=== PATIENT | female | born 1940 | race Caucasian/White ===

== ENCOUNTER 2018-01-09 20:58 | Inpatient (IN) | payer OTHER ==
--- OUTSIDE RECORDS SUMMARY | 2018-01-09 21:01 | XMS REPORT | Clinical Summary ---
:1940 Author Organization [facility] Address [address] [place] [address] Care Team Providers Name Role Phone Yunior Montgomery MD Primary Care Provider Allergies Active Allergy Reactions Severity Noted Date Comments Perindopril Swelling High 01/25/2017 Throat swelled up. Current Medications Prescription Sig. Disp. Refills Start Date End Date Status PROAIR HFA 90 07/14/2016 Active mcg/actuation inhaler alendronate Take 70 mg by 07/30/2016 Active (FOSAMAX) 70 MG mouth once a tablet week. citalopram Take 40 mg by 08/01/2016 Active (CeleXA) 40 MG mouth daily. tablet levothyroxine Take 100 mcg by 07/25/2016 Active (SYNTHROID, mouth daily. LEVOTHROID) 100 MCG tablet predniSONE Take 100 mg by 07/30/2016 Active (DELTASONE) 10 MG mouth 2 (two) tablet times a day. traMADol (ULTRAM) Take 50 mg by 07/25/2016 Active 50 mg tablet mouth every 8 (eight) hours as needed. rosuvastatin Take 10 mg by Active (CRESTOR) 10 MG mouth daily. tablet ASPIRIN (ASPIR-LOW Take 81 mg by Active ORAL) mouth daily. roflumilast Take 500 mcg by Active (DALIRESP) 500 mcg mouth daily. tablet cholecalciferol, Take 2,000 Units Active vitamin D3, by mouth daily. (VITAMIN D3) 2,000 unit tablet TIOTROPIUM BROMIDE Inhale 5 mcg. Active (SPIRIVA RESPIMAT INHL) zolpidem (AMBIEN) Take 10 mg by Active 10 mg tablet mouth nightly as needed for sleep. clopidogrel Take 1 tablet (75 90 tablet 3 01/14/2017 Active (PLAVIX) 75 mg mg total) by tabletIndications: mouth daily. 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 albuterol 2.5 mg Inhale. Active /3 mL (0.083 %) solution for nebulization 3 mL, albuterol 5 mg/mL solution for nebulization 0.5 mL metoprolol Take 1 tablet (25 180 tablet 3 05/19/2017 05/19/20 Active tartrate mg total) by 18 (LOPRESSOR) 25 mg mouth 2 (two) tablet times a day. hydrALAZINE Take 1 tablet (25 90 tablet 3 09/16/2017 Active (APRESOLINE) 25 MG mg total) by tablet mouth daily as needed (sytolic bp >160). furosemide (LASIX) TAKE ONE TABLET 90 tablet 2 09/29/2017 Active 20 mg tablet BY MOUTH DAILY losartan (COZAAR) TAKE ONE TABLET 90 tablet 2 09/29/2017 Active 100 MG tablet BY MOUTH DAILY clopidogrel Take 75 mg by 06/23/2016 01/15/20 Discontinued (PLAVIX) 75 mg mouth daily. 17 tablet LYRICA 50 mg Take 50 mg by 07/23/2016 11/24/19 Discontinued capsule mouth daily. 18 anastrozole Take 1 mg by 05/19/20 Discontinued (ARIMIDEX) 1 mg mouth daily. 17 chemo tablet LACTOBACILLUS Take by mouth. 05/19/20 Discontinued ACIDOPHILUS 17 (PROBIOTIC ORAL) clonIDINE Take 0.1 mg by 05/19/20 Discontinued (CATAPRES) 0.1 MG mouth as needed 17 tablet for high blood pressure. linaclotide Take 145 mcg by 05/19/20 Discontinued (LINZESS) 145 mcg mouth daily 17 capsule before breakfast. losartan (COZAAR) Take 1 tablet 90 tablet 3 08/19/2016 09/29/20 Discontinued 100 MG tablet (100 mg total) by 17 mouth daily. furosemide (LASIX) Take 1 tablet (20 90 tablet 3 08/19/2016 09/29/20 Discontinued 20 MG tablet mg total) by 17 mouth daily. metoprolol Take 1 tablet 90 tablet 3 08/19/2016 05/19/20 Discontinued tartrate (100 mg total) by 17 (LOPRESSOR) 100 MG mouth daily. tablet irbesartan Take 1 tablet 90 tablet 3 08/19/2016 05/19/20 Discontinued (AVAPRO) 150 MG (150 mg total) by 17 tablet mouth daily. 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 artery 08/19/2016 Bilateral carotid artery disease 08/19/2016 Encounters Date Type Specialty Care Team Description 11/24/2017 Office Visit Cardiology Jewel Gomez MD CAD in viejas artery (Primary Dx); PAD (peripheral artery disease); Bilateral carotid artery disease 09/29/2017 Refill Cardiology Jewel Gomez MD Med Refill 09/16/2017 Refill Cardiology Alfreda Gibbs MA Med Refill 05/19/2017 Office Visit Cardiology Jewel Gomez MD Bilateral carotid artery disease (Primary Dx); Coronary artery disease involving viejas coronary artery of viejas heart without angina pectoris; PAD (peripheral artery disease); Essential hypertension 01/14/2017 Refill Cardiology Alfreda Gibbs MA Med Refill 01/08/2017 Orders Only Cardiology Jewel Gomez MD after 01/08/2017 Family History Medical History Relation Name Comments Heart disease Brother Heart disease Father Cancer Mother Heart disease Paternal Grandfather Cancer Sister Cancer Sister Relation Name Status Comments Brother Alive Father Mother Paternal Grandfather Sister Sister Social History Tobacco Use Types Packs/Day Years Used Date Current Every Day Smoker Cigarettes Smokeless Tobacco: Never Used Alcohol Use Drinks/Week oz/Week Comments No Sex Assigned at Date Recorded Not on file Last Filed Vital Signs Vital Sign Reading Time Taken Blood Pressure 179/77 11/24/2017 10:21 AM [employer] Pulse 73 11/24/2017 10:21 AM [employer] Temperature - - Respiratory Rate - - Oxygen Saturation - - Inhaled Oxygen Concentration - - Weight 61.2 kg (135 lb) 11/24/2017 10:21 AM [employer] Height 177.8 cm (5' 10") 11/24/2017 10:21 AM [employer] Body Mass Index 19.37 11/24/2017 10:21 AM [employer] Plan of Treatment Date Type Specialty Care Team Description 05/25/2018 Office Visit Cardiology Jewel Gomez MD [address] [facility] [address] [place] [address] [phone] Health Maintenance Due Date Last Done Comments ZOSTER VACCINE 2001 PNEUMOCOCCAL POLYSACCHARIDE VACCINE AGE 65 AND OVER 2006 PNEUMOCOCCAL-13 2006 INFLUENZA VACCINE 05/12/2017 Results ECG 12 lead (11/24/2017 10:12 AM) Component Value Ref Range Ventricular rate 69 Atrial rate 69 [place] interval 140 QRSD interval 90 QT interval 426 QTC interval 456 P axis 1 77 QRS axis 1 60 T wave axis 86 EKG impression Normal sinus rhythm-Possible Left atrial enlargement-Borderline ECG-In automated comparison with ECG of 19-AUG-2016 09:26,-No significant change was found- Specimen Performing Laboratory [facility] [address] [place] [address] Pv carotid duplex (05/19/2017 11:08 AM) Specimen Performing Laboratory [facility] [address] [place] [address] Narrative [facility] Carotid Artery Ultrasound Report Pat.Name:MICHELLE RUBI Pat.ID:[id number] .Date: 05/19/2017Refer.MD:JEWEL GOMEZ MD Exam Time: 11:51:00 AM Study Type:Carotid DOBAge:1940,77YSex: FEMALE Sonogrphr: Colette Patten, KRISTEN, RDCS, RVT Pat. Stat.:Outpatient Room:[facility] 9: I65.22 CPT - 4: 94362 Echo Event ID:[id number] Order ID:[id number] Reason for Study:Right carotid stent, left ica occlusion Race:C SUMMARY: Duplex scan of the BILATERAL cervical carotid system demonstrates patency of the right internal carotid artery stent without hemodynamically significant velocity increase. The left internal carotid artery is occluded. Color and Doppler flow is absent. The vertebral artery flow is antegrade bilaterally. FINDINGS: Duplex ultrasound was performed of the BILATERAL extracranial carotid arteries. On the right, a stent extends from the distal bulb through the internal carotid artery. The stent is patent with no evidence of intimal hyperplasia or stenosis. The left internal carotid artery is occluded. IMPRESSION: WIDELY PATENT RIGHT INTERNAL CAROTID ARTERY STENT WITH NO EVIDENCE OF RESTENOSIS. OCCLUDED LEFT INTERNAL CAROTID ARTERY Carotid Findings:RightLeft Verteb.Flw AntegradeAntegrade Subclavian TriphasicTriphasic MEASUREMENTS: DOPPLER Right SCA Prox SCA Prox PSV90.6 cm/sSCA Prox EDV 0 cm /s Right CCA Dist CCA Dist PSV39.3 cm/sCCA Dist EDV11.2 cm/s Right CCA Mid CCA Mid PSV 42.1 cm/sCCA Mid EDV 12.6 cm/s Right CCA Prox CCA Prox PSV47.8 cm/sCCA Prox EDV11.2 cm/s Right Bulb Bulb PSV53.4 cm/sBulb EDV 17.4 cm/s Right ECA Prox ECA Prox PSV74.4 cm/sECA Prox EDV23 cm /s Right ICA Dist ICA Dist PSV83.3 cm/Dylan Dist EDV29.1 cm/s Right ICA Mid ICA Mid PSV 97.8 cm/Dylan Mid EDV 32.6 cm/s Right ICA Prox ICA Prox PSV87.6 cm/Dylan Prox EDV29.6 cm/s Right Vertebral Vertebral PSV 85 cm/sVertebral EDV 18.8 cm/s Left SCA Prox SCA Prox PSV 121 cm/s Left CCA Dist CCA Dist PSV26.6 cm/sCCA Dist EDV 0 cm /s Left CCA Mid CCA Mid PSV 39 cm/sCCA Mid EDV 0 cm/s Left CCA Prox CCA Prox PSV32.5 cm/sCCA Prox EDV5.77 cm/s Left ECA ECA ONQ431 cm/sECA EDV 47.7 cm/s Left Vertebral Vertebral PSV 67.1 cm/sVertebral EDV 28.2 cm/s Right ICA/CCA Ratio ICA/CCA PSV 2.08 Left Bulb Bulb PSV 0 cm/s Left ICA Prox ICA Prox PSV 0 cm/s Left ICA Mid ICA Mid PSV0 cm/s Left ICA Dist ICA Dist PSV 0 cm/s Left ECA Prox ECA Prox PSV 227 cm/sECA Prox EDV15 cm /s Signed 05/21/2017 02:22 PM Jewel Gomez MD Procedure Note Interface, Radiology Results In - 05/21/2017 2:23 PM CDT [facility] Carotid Artery Ultrasound Report Pat.Name: MICHELLE RUBI Pat.ID: [id number] St.Date: 05/19/2017 Refer.MD: JEWEL GOMEZ MD Exam Time: 11:51:00 AM Study Type:Carotid Age: 5 1940,77Y Sex: FEMALE Sonogrphr: Colette Patten RDMS, RDCS, RVT Pat. Stat.:Outpatient Room: [place] ICD - 9: I65.22 CPT - 4: 33343 Echo Event ID:[id number] Order ID: [id number] Reason for Study:Right carotid stent, left ica occlusion Race: C SUMMARY: Duplex scan of the BILATERAL cervical carotid system demonstrates patency of the right internal carotid artery stent without hemodynamically significant velocity increase. The left internal carotid artery is occluded. Color and Doppler flow is absent. The vertebral artery flow is antegrade bilaterally. FINDINGS: Duplex ultrasound was performed of the BILATERAL extracranial carotid arteries. On the right, a stent extends from the distal bulb through the internal carotid artery. The stent is patent with no evidence of intimal hyperplasia or stenosis. The left internal carotid artery is occluded. IMPRESSION: WIDELY PATENT RIGHT INTERNAL CAROTID ARTERY STENT WITH NO EVIDENCE OF RESTENOSIS. OCCLUDED LEFT INTERNAL CAROTID ARTERY Carotid Findings: Right Left Verteb.Flw Antegrade Antegrade Subclavian Triphasic Triphasic MEASUREMENTS: DOPPLER Right SCA Prox SCA Prox PSV 90.6 cm/s SCA Prox EDV 0 cm/s Right CCA Dist CCA Dist PSV 39.3 cm/s CCA Dist EDV 11.2 cm/s Right CCA Mid CCA Mid PSV 42.1 cm/s CCA Mid EDV 12.6 cm/s Right CCA Prox CCA Prox PSV 47.8 cm/s CCA Prox EDV 11.2 cm/s Right Bulb Bulb PSV 53.4 cm/s Bulb EDV 17.4 cm/s Right ECA Prox ECA Prox PSV 74.4 cm/s ECA Prox EDV 23 cm/s Right ICA Dist ICA Dist PSV 83.3 cm/s ICA Dist EDV 29.1 cm/s Right ICA Mid ICA Mid PSV 97.8 cm/s ICA Mid EDV 32.6 cm/s Right ICA Prox ICA Prox PSV 87.6 cm/s ICA Prox EDV 29.6 cm/s Right Vertebral Vertebral PSV 85 cm/s Vertebral EDV 18.8 cm/s Left SCA Prox SCA Prox PSV 121 cm/s Left CCA Dist CCA Dist PSV 26.6 cm/s CCA Dist EDV 0 cm/s Left CCA Mid CCA Mid PSV 39 cm/s CCA Mid EDV 0 cm/s Left CCA Prox CCA Prox PSV 32.5 cm/s CCA Prox EDV 5.77 cm/s Left ECA ECA PSV 227 cm/s ECA EDV 47.7 cm/s Left Vertebral Vertebral PSV 67.1 cm/s Vertebral EDV 28.2 cm/s Right ICA/CCA Ratio ICA/CCA PSV 2.08 Left Bulb Bulb PSV 0 cm/s Left ICA Prox ICA Prox PSV 0 cm/s Left ICA Mid ICA Mid PSV 0 cm/s Left ICA Dist ICA Dist PSV 0 cm/s Left ECA Prox ECA Prox PSV 227 cm/s ECA Prox EDV 15 cm/s Signed 05/21/2017 02:22 PM Jewel Gomez MD General surgery (01/08/2017)after 01/08/2017 Insurance Payer Benefit Plan / Group Subscriber ID Type Phone Address [employer] MEDICARE AETNA MEDICARE HMO/PPO [facility] xxxxxxxx HMO y [phone] [id number]
--- OUTSIDE RECORDS SUMMARY | 2018-01-09 21:02 | XMS REPORT | Clinical Summary ---
:1940 Author Organization [facility] Address [address] [place] [address] Phone Care Team Providers Name Role Phone Unavailable Primary Care Provider Unavailable Allergies Active Allergy Reactions Severity Noted Date Comments Perindopril Swelling High 01/25/2017 Throat swelled up. Current Medications Prescription Sig. Disp. Refills Start Date End Date Status metoprolol (LOPRESSOR) Take 100 mg by Active 100 MG mouth daily. tabletIndications: hypertension losartan (COZAAR) 100 Take 100 mg by Active MG tabletIndications: mouth daily. hypertension levothyroxine Take 100 mcg by Active (SYNTHROID, mouth Every LEVOTHROID) 100 MCG morning on an tabletIndications: empty stomach. hypothyroidism rosuvastatin (CRESTOR) Take 10 mg by Active 10 MG mouth daily. tabletIndications: hyperlipidemia citalopram (CELEXA) 40 Take 40 mg by Active MG tabletIndications: mouth daily. Anxiety with Depression clopidogrel (PLAVIX) Take 75 mg by Active 75 mg tablet mouth daily. aspirin 81 MG EC Take 81 mg by Active tablet mouth daily. furosemide (LASIX) 20 Take 20 mg by Active MG tablet mouth daily. anastrozole (ARIMIDEX) Take 1 mg by Active 1 mg tablet mouth daily. alendronate (FOSAMAX) Take 70 mg by Active 70 MG mouth every 7 tabletIndications: days Take in Post-Menopausal the morning Osteoporosis with a full glass of water, on an empty stomach, and do not take anything else by mouth or lie down for the next 30 min. . pregabalin (LYRICA) 50 Take 50 mg by Active MG capsule mouth daily with dinner. traMADol (ULTRAM) 50 Take 50 mg by Active mg tabletIndications: mouth as needed Pain for Pain. zolpidem (AMBIEN) 10 Take 10 mg by Active mg tablet mouth every night as needed for Insomnia. cloNIDine HCl Take 0.1 mg by Active (CATAPRES) 0.1 MG mouth as tablet needed. tiotropium (SPIRIVA) Inhale 1 30 capsule 0 01/26/2017 01/26/2018 Active 18 mcg inhalation capsule (18 mcg capsule total) by mouth via inhaler daily. albuterol HFA Inhale 1 puff 1 Inhaler 0 01/26/2017 01/26/2018 Active (VENTOLIN HFA) 90 by mouth via mcg/actuation inhaler inhaler every 6 (six) hours as needed for Wheezing. Active Problems Problem Noted Date Syncope and collapse 01/25/2017 Encounters Date Type Specialty Care Team Description 01/25/2017 - Hospital Cardiology Lewis Currie Syncope and 01/26/2017 Encounter MD Prashant collapse;Essential OleganiEdith, hypertension;Postoper ative hypothyroidism;Hyperl ipidemia, unspecified hyperlipidemia type 01/25/2017 Orders Only General Internal Medicine after 01/08/2017 Family History Medical History Relation Name Comments Heart disease Father Hypertension Father Cancer Mother Relation Name Status Comments Father Mother Social History Tobacco Use Types Packs/Day Years Used Date Current Every Day Smoker 0.5 50 Tobacco Cessation: Ready to Quit: Yes Alcohol Use Drinks/Week oz/Week Comments Yes 2 Glasses of wine 1.2 Sex Assigned at Date Recorded Not on file Last Filed Vital Signs Vital Sign Reading Time Taken Blood Pressure 189/82 01/26/2017 10:00 AM CDT Pulse 80 01/26/2017 10:00 AM CDT Temperature 36.5 C (97.7 F) 01/26/2017 7:30 AM CDT Respiratory Rate 19 01/26/2017 7:30 AM CDT Oxygen Saturation 95% 01/26/2017 8:40 AM CDT Inhaled Oxygen Concentration - - Weight 58.7 kg (129 lb 8 oz) 01/25/2017 12:51 AM CDT Height 177.8 cm (5' 10") 01/25/2017 12:51 AM CDT Body Mass Index 18.58 01/25/2017 12:51 AM CDT Plan of Treatment Not on file Results RHYTHM STRIP - SCAN (02/06/2017 10:51 AM)Only the most recent of2 resultswithin the time period is included.EKG-SCANNED (01/28/2017 9:01 AM)XR chest 2 views ( 01/25/2017 2:46 PM) Specimen Performing Laboratory [place] [facility] Narrative FINAL REPORT INDICATION: smoker- hoarseness, hypoxia COMPARISON: None. TECHNIQUE: Chest radiograph, two views, PA and lateral. FINDINGS: There is hyperexpansion which may represent chronic obstructive pulmonary disease. No pneumonia or suspicious pulmonary nodule or mass is demonstrated. Cardiac silhouette is normal in size. Mild tortuosity of the thoracic aorta and calcification at the aortic arch is noted. There is no pleural effusion or pneumothorax. Osseous structures are unremarkable. IMPRESSION: Hyperexpansion, which may represent chronic obstructive pulmonary disease. No evidence of acute pulmonary abnormality. Signed: Calvin Carr MD Report Verified Date/Time:01/25/2017 15:21:54 Reading Location: [address] Transitional Reading Room Procedure Note Interface, External Ris In - 01/25/2017 3:24 PM CDT FINAL REPORT INDICATION: smoker- hoarseness, hypoxia COMPARISON: None. TECHNIQUE: Chest radiograph, two views, PA and lateral. FINDINGS: There is hyperexpansion which may represent chronic obstructive pulmonary disease. No pneumonia or suspicious pulmonary nodule or mass is demonstrated. Cardiac silhouette is normal in size. Mild tortuosity of the thoracic aorta and calcification at the aortic arch is noted. There is no pleural effusion or pneumothorax. Osseous structures are unremarkable. IMPRESSION: Hyperexpansion, which may represent chronic obstructive pulmonary disease. No evidence of acute pulmonary abnormality. Signed: Calvin Carr MD Report Verified Date/Time: 01/25/2017 15:21:54 Reading Location: [address] Transitional Reading Room PHERAL VASCULAR REPORT - SCAN (01/25/2017 1:50 PM)CT neck soft tissue with IV contrast (01/25/2017 11:47 AM) Specimen Performing Laboratory [place] [facility] Narrative FINAL REPORT CT neck with contrast. CLINICAL HISTORY: hoarsenss- h/o throat cancer TECHNIQUE: Axial CT images of the neck were obtained with contrast. This exam was performed according to our departmental dose optimization program which includes automated exposure control, adjustment of the mA and/or kV according to patient's size and/or use of iterative reconstructive technique. COMPARISON: None available. FINDINGS: There is slight medialization of the right aryepiglottic fold, and vocal cords, and slight enlargement of the right piriform sinus, which may reflect right-sided vocal cord paralysis. The right arytenoid cartilage is no identified. This finding could be postsurgical, but correlation with patient's history is needed. The salivary glands are unremarkable. No lymphadenopathy or mass lesion is identified in the neck. Thyroid gland is unremarkable. There is pulmonary emphysema, and a few scattered tiny lung nodules are present. Atherosclerotic disease. A stent is present in the right common and internal carotid artery. There is heavy atherosclerotic calcification at the left carotid bifurcation and the left ICA is occluded. Partially visualized orbital, and intracranial contents are unremarkable. The visualized paranasal sinuses and tympanomastoid cavities are clear. Advanced degenerative changes are present in the cervical spine, no suspicious bony lesion identified. IMPRESSION: No mass or lymphadenopathy identified in the neck. Findings suggest a right vocal cord paralysis. Absence of the right arytenoid cartilage may reflect postsurgical change, but correlation with patient's history is needed, and ENT consultation is suggested if clinically appropriate. Atherosclerotic disease. Occlusion of the left ICA. Stent in the right carotid artery.. Emphysema. A few tiny nonspecific nodules at the lung apices. Signed: Cherie Rivera MD Report Verified Date/Time:01/25/2017 17:21:00 Reading Location: [address] Neuro Reading Room Procedure Note Interface, External Ris In - 01/25/2017 5:23 PM CDT FINAL REPORT CT neck with contrast. CLINICAL HISTORY: hoarsenss- h/o throat cancer TECHNIQUE: Axial CT images of the neck were obtained with contrast. This exam was performed according to our departmental dose optimization program which includes automated exposure control, adjustment of the mA and/or kV according to patient's size and/or use of iterative reconstructive technique. COMPARISON: None available. FINDINGS: There is slight medialization of the right aryepiglottic fold, and vocal cords, and slight enlargement of the right piriform sinus, which may reflect right-sided vocal cord paralysis. The right arytenoid cartilage is no identified. This finding could be postsurgical, but correlation with patient's history is needed. The salivary glands are unremarkable. No lymphadenopathy or mass lesion is identified in the neck. Thyroid gland is unremarkable. There is pulmonary emphysema, and a few scattered tiny lung nodules are present. Atherosclerotic disease. A stent is present in the right common and internal carotid artery. There is heavy atherosclerotic calcification at the left carotid bifurcation and the left ICA is occluded. Partially visualized orbital, and intracranial contents are unremarkable. The visualized paranasal sinuses and tympanomastoid cavities are clear. Advanced degenerative changes are present in the cervical spine, no suspicious bony lesion identified. IMPRESSION: No mass or lymphadenopathy identified in the neck. Findings suggest a right vocal cord paralysis. Absence of the right arytenoid cartilage may reflect postsurgical change, but correlation with patient's history is needed, and ENT consultation is suggested if clinically appropriate. Atherosclerotic disease. Occlusion of the left ICA. Stent in the right carotid artery.. Emphysema. A few tiny nonspecific nodules at the lung apices. Signed: Cherie Rivera MD Report Verified Date/Time: 01/25/2017 17:21:00 Reading Location: [address] Neuro Reading Room brain without IV contrast (01/25/2017 11:00 AM) Specimen Performing Laboratory [place] Narrative FINAL REPORT MRI brain Comparison:No priors Reason for exam: episode of confusion, history of breast and throat cancer Discussion: Sagittal and coronal T1, axial FLAIR, T2, gradient echo T2 star, diffusion sequences and ADC map images of the brain are provided. Exam is motion degraded. There are no intracranial hematomas, mass effect, hydrocephalus, shift, or extra-axial collections. There is a mild degree of pontine and supratentorial white matter chronic microvascular ischemic change. 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 There are no areas of abnormal diffusion restriction. There is loss of flow-void in the left internal carotid artery, but flow is reconstituted in the left DALTON, and MCA. Normal flow voids in the large posterior dural sinuses. The pineal, sella, and craniocervical junction regions are within normal limits. The visualized orbital contents,skullbase and surrounding soft tissues are unremarkable. The visualized paranasal sinuses and mastoid air cells are unremarkable. Impressions: No acute intracranial process. Mild chronic microvascular ischemic changes. Left ICA occlusion. Signed: Cherie Rivera MD Report Verified Date/Time:01/25/2017 13:56:28 Reading Location: [address] Neuro Reading Room Procedure Note Interface, External Ris In - 01/25/2017 1:58 PM CDT FINAL REPORT MRI brain Comparison: No priors Reason for exam: episode of confusion, history of breast and throat cancer Discussion: Sagittal and coronal T1, axial FLAIR, T2, gradient echo T2 star, diffusion sequences and ADC map images of the brain are provided. Exam is motion degraded. There are no intracranial hematomas, mass effect, hydrocephalus, shift, or extra-axial collections. There is a mild degree of pontine and supratentorial white matter chronic microvascular ischemic change. 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 There are no areas of abnormal diffusion restriction. There is loss of flow-void in the left internal carotid artery, but flow is reconstituted in the left DALTON, and MCA. Normal flow voids in the large posterior dural sinuses. The pineal, sella, and craniocervical junction regions are within normal limits. The visualized orbital contents, skullbase and surrounding soft tissues are unremarkable. The visualized paranasal sinuses and mastoid air cells are unremarkable. Impressions: No acute intracranial process. Mild chronic microvascular ischemic changes. Left ICA occlusion. Signed: Cherie Rivera MD Report Verified Date/Time: 01/25/2017 13:56:28 Reading Location: [address] Neuro Reading Room Carotid doppler bilateral (01/25/2017 8:26 AM) Component Value Ref Range Ejection Fraction Specimen Performing Laboratory [facility]CHO [facility]ART[facility] MKCKESSON CPACS Narrative PV LAB - Carotid Duplex Study Demographics Patient JAE Hernandez Date of Study 01/25/2017 77 Visit [id number] Female of 1940 [facility] [place] [id number] Physician MD Rosey Instructional Writer Radha Soriano, Physician , [facility] Procedure Type of Study: Cerebral: Carotid, CAROTID DOPPLER, BILATERAL. Indications for Study:Syncope . Patient Status:Routine. Study Location:Vascular Lab. Technical Quality:Technically Difficult. - Results were reported to:Dr. Amaya @ 1670. Risk Factors History of Disease + +----+ + !Diagnosis !Date!Comments ! + +----+ + !History/Risk!!SMOKER, SYNCOPE, HTN, PAD, CAROTID ARTERY DISEASE,! !Factors:!!HLD, COPD, BREAST CANCER, H/O THROAT CANCER ! + +----+ + Impressions Right Impression 1. Post stent placement, the internal carotid artery is patent with velocities of: proximal stent- 151 cm/sec, distal stent- 148 cm/sec. 2. The external carotid artery is occluded. 3. There is non-occluding plaque in the common carotid artery. 4. The vertebral artery flow is antegrade and normal. 4. The vertebral artery flow is antegrade and normal. Left Impression 1. The internal carotid artery is occluded. 2. There is >50% stenosis in the external carotid artery with a velocity of 391 cm/sec. 3. There is non-occluding plaque in the common carotid artery. 4. The vertebral artery flow is antegrade and normal. 5. The subclavian artery is within normal limits where visualized. Conclusions Summary Carotid duplex scanning and color flow imaging were performed bilaterally. The arteries were adequately visualized. Post stent placement, the right internal carotid artery was patent with no significant stenosis. The left internal carotid artery was occluded. The right external carotid artery was occluded. The left external carotid artery had >50% stenosis. The vertebral artery flow was antegrade and normal bilaterally. The subclavian arteries were patent with normal flow bilaterally where visualized. Signature Velocities are measured in cm/s ; Diameters are measured in cm Carotid Right Measurements + +----+----+-----+ + + + !Location !PSV !EDV !Angle!%Stenosis 2D!%Stenosis Doppler! Tortuosity ! + +----+----+-----+ + + + !Prox CCA !51.9!20.4!54 !! ! ! + +----+----+-----+ + + + !Dist CCA !53!19.6!60 !! ! ! + +----+----+-----+ + + + !Prox ICA !151 !55!60 !! ! ! + +----+----+-----+ + + + !Dist ICA !148 !65.8!60 !! ! ! + +----+----+-----+ + + + !Prox ECA !0 !0 ! !! ! ! + +----+----+-----+ + + + !Vertebral!128 !41.2!60 !! ! ! + +----+----+-----+ + + + !Prox Subclavian!120 !0 !60 !! ! ! + +----+----+-----+ + + + - There is antegrade vertebral flow noted on the right side. - Additional Measurements:ICAPSV/CCAPSV 2.85.ICAEDV/CCAEDV 3.23. Carotid Left Measurements + +----+----+-----+ + + + !Location !PSV !EDV !Angle!%Stenosis 2D!%Stenosis Doppler! Tortuosity ! + +----+----+-----+ + + + !Prox CCA !49.8!11.1!60 !! ! ! + +----+----+-----+ + + + !Dist CCA !40.9!11.4!60 !! ! ! + +----+----+-----+ + + + !Prox ICA !0 !0 ! !! ! ! + +----+----+-----+ + + + !Dist ICA !0 !0 ! !! ! ! + +----+----+-----+ + + + !Prox ECA !391 !52.4!60 !! ! ! + +----+----+-----+ + + + !Vertebral!88!31.4!60 !! ! ! + +----+----+-----+ + + + !Prox Subclavian!154 !0 !60 !! ! ! + +----+----+-----+ + + + - There is antegrade vertebral flow noted on the left side. - Additional Measurements:ICAPSV/CCAPSV 0.ICAEDV/CCAEDV 0. Procedure Note Interface, External Ris In - 01/25/2017 1:10 PM CDT PV LAB - Carotid Duplex Study Demographics Patient Name JAE RUBI Date of Study 01/25/2017 Age 77 Visit Number [id number] Gender Female Date of 1940 Number Referring [facility] Room Number [id number] Physician MD Rosey Instructional Writer Radha Post Interpreting Kacie Soriano Physician , [facility] Procedure Type of Study: Cerebral: Carotid, CAROTID DOPPLER, BILATERAL. Indications for Study:Syncope . Patient Status:Routine. Study Location:Vascular Lab. Technical Quality:Technically Difficult. - Results were reported to:Dr. Amaya @ 0146. Risk Factors History of Disease + +----+ + !Diagnosis !Date!Comments ! + +----+ + !History/Risk ! !SMOKER, SYNCOPE, HTN, PAD, CAROTID ARTERY DISEASE, ! !Factors: ! !HLD, COPD, BREAST CANCER, H/O THROAT CANCER ! + +----+ + Impressions Right Impression 1. Post stent placement, the internal carotid artery is patent with velocities of: proximal stent- 151 cm/sec, distal stent- 148 cm/sec. 2. The external carotid artery is occluded. 3. There is non-occluding plaque in the common carotid artery. 4. The vertebral artery flow is antegrade and normal. 4. The vertebral artery flow is antegrade and normal. Left Impression 1. The internal carotid artery is occluded. 2. There is >50% stenosis in the external carotid artery with a velocity of 391 cm/sec. 3. There is non-occluding plaque in the common carotid artery. 4. The vertebral artery flow is antegrade and normal. 5. The subclavian artery is within normal limits where visualized. Conclusions Summary Carotid duplex scanning and color flow imaging were performed bilaterally. The arteries were adequately visualized. Post stent placement, the right internal carotid artery was patent with no significant stenosis. The left internal carotid artery was occluded. The right external carotid artery was occluded. The left external carotid artery had >50% stenosis. The vertebral artery flow was antegrade and normal bilaterally. The subclavian arteries were patent with normal flow bilaterally where visualized. Signature Velocities are measured in cm/s ; Diameters are measured in cm Carotid Right Measurements + +----+----+-----+ + + + !Location !PSV !EDV !Angle!%Stenosis 2D!%Stenosis Doppler!Tortuosity ! + +----+----+-----+ + + + !Prox CCA !51.9!20.4!54 ! ! ! ! + +----+----+-----+ + + + !Dist CCA !53 !19.6!60 ! ! ! ! + +----+----+-----+ + + + !Prox ICA !151 !55 !60 ! ! ! ! + +----+----+-----+ + + + !Dist ICA !148 !65.8!60 ! ! ! ! + +----+----+-----+ + + + !Prox ECA !0 !0 ! ! ! ! ! + +----+----+-----+ + + + !Vertebral !128 !41.2!60 ! ! ! ! + +----+----+-----+ + + + !Prox Subclavian!120 !0 !60 ! ! ! ! + +----+----+-----+ + + + - There is antegrade vertebral flow noted on the right side. - Additional Measurements:ICAPSV/CCAPSV 2.85.ICAEDV/CCAEDV 3.23. Carotid Left Measurements + +----+----+-----+ + + + !Location !PSV !EDV !Angle!%Stenosis 2D!%Stenosis Doppler!Tortuosity ! + +----+----+-----+ + + + !Prox CCA !49.8!11.1!60 ! ! ! ! + +----+----+-----+ + + + !Dist CCA !40.9!11.4!60 ! ! ! ! + +----+----+-----+ + + + !Prox ICA !0 !0 ! ! ! ! ! + +----+----+-----+ + + + !Dist ICA !0 !0 ! ! ! ! ! + +----+----+-----+ + + + !Prox ECA !391 !52.4!60 ! ! ! ! + +----+----+-----+ + + + !Vertebral !88 !31.4!60 ! ! ! ! + +----+----+-----+ + + + !Prox Subclavian!154 !0 !60 ! ! ! ! + +----+----+-----+ + + + - There is antegrade vertebral flow noted on the left side. - Additional Measurements:ICAPSV/CCAPSV 0.ICAEDV/CCAEDV 0. TSH/Free T4 If Indicated (01/25/2017 6:29 AM) Component Value Ref Range TSH 1.65 0.35 - 4.94 uIU/mL Specimen Performing Laboratory Blood - Arm, [address] [address] PT/aPTT (01/25/2017 6:29 AM) Component Value Ref Range Protime 12.8 11.7 - 14.7 seconds INR 1.0 <=5.9 PTT 26.8 22.5 - 36.0 seconds Specimen Performing Laboratory Blood - Arm, [address] [address] Narrative RECOMMENDED COUMADIN/WARFARIN INR THERAPY RANGES STANDARD DOSE: 2.0 - 3.0 Includes: PROPHYLAXIS for venous thrombosis, systemic embolization; TREATMENT for venous thrombosis and/or pulmonary embolus. HIGH RISK: Target INR is 2.5-3.5 for patients with mechanical heart valves. CBC with platelet count + automated diff (01/25/2017 6:29 AM) Component Value Ref Range WBC 5.1 4.0 - 10.0 K/L RBC 4.01 4.00 - 5.00 M/L Hemoglobin 12.8 12.0 - 15.0 GM/DL Hematocrit 39.7 36.0 - 45.0 % MCV 98.9 82.0 - 99.0 fL MCH 32.0 27.0 - 33.0 pg MCHC 32.4 32.0 - 36.0 GM/DL RDW 13.6 10.3 - 14.2 % Platelets 195 150 - 430 K/CU MM MPV 7.4 6.5 - 10.5 fL nRBC 0 0 - 0 /100 WBC % Neutros 46 % % Lymphs 41 % % Monos 11 % % Eos 1 % % Baso 1 % # Neutros 2.34 1.80 - 8.00 K/L # Lymphs 2.10 1.48 - 4.50 K/L # Monos 0.58 0.00 - 1.30 K/L # Eos 0.03 0.00 - 0.50 K/L # Baso 0.06 0.00 - 0.20 K/L Specimen Performing Laboratory Blood - Arm, Right [facility] [address] [address] Narrative 0.00 Prothrombin time/INR (01/25/2017 6:29 AM) Component Value Ref Range Protime 12.8 11.7 - 14.7 seconds INR 1.0 <=5.9 Specimen Performing Laboratory Blood - Arm, [address] [address] Narrative RECOMMENDED COUMADIN/WARFARIN INR THERAPY RANGES STANDARD DOSE: 2.0 - 3.0 Includes: PROPHYLAXIS for venous thrombosis, systemic embolization; TREATMENT for venous thrombosis and/or pulmonary embolus. HIGH RISK: Target INR is 2.5-3.5 for patients with mechanical heart valves. CBC with platelet count + automated diff (01/25/2017 6:29 AM) Specimen Performing Laboratory Blood Narrative The following orders were created for panel order CBC with platelet count + automated diff. Procedure Abnormality Status --------- ------ CBC with platelet count ...[[id number]]Final result Please view results for these tests on the individual orders. Magnesium (01/25/2017 6:29 AM) Component Value Ref Range Magnesium 2.0 1.6 - 2.6 mg/dL Specimen Performing Laboratory Blood - Arm, [address] [address] Hemoglobin A1c (01/25/2017 6:29 AM) Component Value Ref Range Hemoglobin A1C 5.6 4.3 - 6.1 % Specimen Performing Laboratory Blood - Arm, [address] [address] Vitamin B12 (01/25/2017 6:29 AM) Component Value Ref Range Vitamin B12 317 213 - 816 pg/mL Specimen Performing Laboratory Blood - Arm, [address] [address] Hepatic function panel (01/25/2017 6:29 AM) Component Value Ref Range Protein, Total 6.1 6.0 - 8.3 gm/dL Albumin 3.8 3.5 - 5.0 g/dL Total Bilirubin 0.3 0.2 - 1.2 mg/dL Bilirubin, Direct 0.1 0.1 - 0.5 mg/dL Alkaline Phosphatase 56 40 - 150 U/L AST 17 5 - 34 U/L ALT 8 6 - 55 U/L Specimen Performing Laboratory Blood - [facility], [address] [address] Lipid panel (01/25/2017 6:29 AM) Component Value Ref Range Triglycerides 93 mg/dL Cholesterol 146 mg/dL HDL 56 mg/dL LDL Calculated 71 mg/dL Specimen Performing Laboratory Blood - Arm, [address] [address] Narrative Triglyceride Reference Range: Low Risk <150 [id number] High Risk 200-499 Very High Risk>=500 Cholesterol Reference Range: Low Risk <200 [id number] High Risk>240 HDL Cholesterol Reference Range: Low Risk >=60 High Risk <40 LDL Cholesterol Reference Range: Optimal<100 Near [id number] [id number] Czdy499-512 Very High >=190 Basic metabolic panel (01/25/2017 6:29 AM) Component Value Ref Range Sodium 138 136 - 145 meq/L Potassium 4.8 3.5 - 5.1 meq/L Chloride 103 98 - 107 meq/L CO2 25 22 - 29 meq/L BUN 21 7 - 21 mg/dL Creatinine 0.86 0.57 - 1.25 mg/dL Glucose 68 (L) 70 - 105 mg/dL Calcium 8.4 8.4 - 10.2 mg/dL EGFR 64Comment: ESTIMATED GFR IS NOT ACCURATE mL/min/1.73 sq m CREATININE CLEARANCE IN PREDICTING GLOMERULAR FILTRATION RATE. ESTIMATED GFR IS NOT APPLICABLE FOR DIALYSIS PATIENTS. Specimen Performing Laboratory Blood - Arm, [address] [address] ECG 12 lead (01/25/2017 2:05 AM) Specimen Performing Laboratory [employer] [place] Narrative Ventricular Rate 59 BPM Atrial Rate 59 BPM P-R Interval 152 ms QRS Duration 108 ms Q-T Interval 504 ms QTC Calculation(Bazett) 498 ms P [place] 57 degrees R [place] 71 degrees T [place] 80 degrees Sinus bradycardia Incomplete right bundle branch block Anterior infarct , age undetermined Abnormal ECG When compared with ECG of 22-APR-2001 16:01, No significant change was found Confirmed by MD LUCERO, ADBI ([id number]) on 01/25/2017 5:22:00 PM Procedure Note Interface, External Ris In - 01/25/2017 5:22 PM CDT Ventricular Rate 59 BPM Atrial Rate 59 BPM P-R Interval 152 ms QRS Duration 108 ms Q-T Interval 504 ms QTC Calculation(Bazett) 498 ms P [place] 57 degrees R [place] 71 degrees T [place] 80 degrees Sinus bradycardia Incomplete right bundle branch block Anterior infarct , age undetermined Abnormal ECG When compared with ECG of 22-APR-2001 16:01, No significant change was found Confirmed by MD LUCERO, ADBI ([id number]) on 01/25/2017 5:22:00 PM after 01/08/2017
--- OUTSIDE RECORDS SUMMARY | 2018-01-09 21:02 | XMS REPORT ---
:1940 [facility] Organization [facility] Address [address] [place] [id number] Care Team Providers Name Role Phone JO-ANN WARREN Unavailable Unavailable Problems This patient has no known problems. Allergies, Adverse Reactions, Alerts This patient has no known allergies or adverse reactions. Medications This patient has no known medications. Results Test Description Test Time Test Comments Text Results Atomic Results Result Comments HEMOGLOBIN A1C 2017-01-25 09:13:00 Test Item Value Reference Range Comments HEMOGLOBIN A1C (BEAKER) (test hwyz=338) 5.6 % 4.3-6.1 VITAMIN [id number] 07:58:00 Test Item Value Reference Range Comments VITAMIN B12 (BEAKER) (test xahn=342) 317 pg/mL 213-816 TSH/FREE T4 IF [id number] 07:51:00 Test Item Value Reference Range Comments THYROID STIMULATING HORMONE (BEAKER) (test 1.65 uIU/mL 0.35-4.94 jmzl=593) [id number] 07:37:00 Test Item Value Reference Range Comments MAGNESIUM (BEAKER) (test euza=636) 2.0 mg/dL 1.6-2.6 BASIC METABOLIC [id number] 07:37:00 Test Item Value Reference Range Comments SODIUM (BEAKER) (test 138 meq/L 136-145 doxk=552) POTASSIUM (BEAKER) (test 4.8 meq/L 3.5-5.1 xizm=839) CHLORIDE (BEAKER) (test 103 meq/L 98-107 ldqc=857) CO2 (BEAKER) (test 25 meq/L 22-29 insx=207) BLOOD UREA NITROGEN 21 mg/dL 7-21 (BEAKER) (test hshe=338) CREATININE (BEAKER) (test 0.86 mg/dL 0.57-1.25 jwpi=690) GLUCOSE RANDOM (BEAKER) 68 mg/dL 70-105 (test xfkp=754) CALCIUM (BEAKER) (test 8.4 mg/dL 8.4-10.2 ulfi=175) EGFR (BEAKER) (test 64 mL/min/1.73 sq m ESTIMATED GFR IS NOT lhdz=1639) ACCURATE CREATININE CLEARANCE IN PREDICTING GLOMERULAR FILTRATION RATE. ESTIMATED GFR IS NOT APPLICABLE FOR DIALYSIS PATIENTS. LIPID [id number] 07:37:00 Test Item Value Reference Range Comments TRIGLYCERIDES (BEAKER) (test wjym=069) 93 mg/dL CHOLESTEROL (BEAKER) (test mrsi=217) 146 mg/dL HDL CHOLESTEROL (BEAKER) (test abdf=951) 56 mg/dL LDL CHOLESTEROL CALCULATED (BEAKER) (test 71 mg/dL xmem=295) Triglyceride Reference Range: Low Risk <150 Borderline 150- 199 High Risk 200-499 Very High Risk >=500Cholesterol Reference Range: Low Risk <200 Borderline 200-239 High Risk > 240HDL Cholesterol Reference Range: Low Risk >=60 High Risk <40LDL Cholesterol Reference Range: Optimal <100 Near Optimal 100-129 Borderline 130-159 High 160-189 Very High >=190HEPATIC FUNCTION [id number] 07:37:00 Test Item Value Reference Range Comments TOTAL PROTEIN (BEAKER) (test urgy=450) 6.1 gm/dL 6.0-8.3 ALBUMIN (BEAKER) (test gatd=9143) 3.8 g/dL 3.5-5.0 BILIRUBIN TOTAL (BEAKER) (test mhjk=198) 0.3 mg/dL 0.2-1.2 BILIRUBIN DIRECT (BEAKER) (test fpwd=305) 0.1 mg/dL 0.1-0.5 ALKALINE PHOSPHATASE (BEAKER) (test miby=554) 56 U/L 40-150 AST (SGOT) (BEAKER) (test yabw=465) 17 U/L 5-34 ALT (SGPT) (BEAKER) (test ickc=728) 8 U/L 6-55 CBC W/PLT COUNT & AUTO [id number] 07:33:00 Test Item Value Reference Range Comments WHITE BLOOD CELL COUNT (BEAKER) (test sdnc=308) 5.1 K/ L 4.0-10.0 RED BLOOD CELL COUNT (BEAKER) (test bljo=051) 4.01 M/ L 4.00-5.00 HEMOGLOBIN (BEAKER) (test dogi=601) 12.8 GM/DL 12.0-15.0 HEMATOCRIT (BEAKER) (test apjd=350) 39.7 % 36.0-45.0 MEAN CORPUSCULAR VOLUME (BEAKER) (test cfuw=342) 98.9 fL 82.0-99.0 MEAN CORPUSCULAR HEMOGLOBIN (BEAKER) (test 32.0 pg 27.0-33.0 zawd=994) MEAN CORPUSCULAR HEMOGLOBIN CONC (BEAKER) (test 32.4 GM/DL 32.0-36.0 xotu=539) RED CELL DISTRIBUTION WIDTH (BEAKER) (test 13.6 % 10.3-14.2 rujb=297) PLATELET COUNT (BEAKER) (test hqif=826) 195 K/CU MM 150-430 MEAN PLATELET VOLUME (BEAKER) (test nrvr=825) 7.4 fL 6.5-10.5 NUCLEATED RED BLOOD CELLS (BEAKER) (test 0 /100 WBC 0-0 ziaq=728) NEUTROPHILS RELATIVE PERCENT (BEAKER) (test 46 % yknw=516) LYMPHOCYTES RELATIVE PERCENT (BEAKER) (test 41 % qmva=140) MONOCYTES RELATIVE PERCENT (BEAKER) (test 11 % prtt=137) EOSINOPHILS RELATIVE PERCENT (BEAKER) (test 1 % lozq=962) BASOPHILS RELATIVE PERCENT (BEAKER) (test 1 % vtxw=236) NEUTROPHILS ABSOLUTE COUNT (BEAKER) (test 2.34 K/ L 1.80-8.00 dsbp=146) LYMPHOCYTES ABSOLUTE COUNT (BEAKER) (test 2.10 K/ L 1.48-4.50 lhds=022) MONOCYTES ABSOLUTE COUNT (BEAKER) (test 0.58 K/ L 0.00-1.30 kxix=348) EOSINOPHILS ABSOLUTE COUNT (BEAKER) (test 0.03 K/ L 0.00-0.50 gxwn=516) BASOPHILS ABSOLUTE COUNT (BEAKER) (test 0.06 K/ L 0.00-0.20 kvwc=573) 0.00PT/[id number] 07:04:00 Test Item Value Reference Range Comments PROTIME (BEAKER) (test uwtb=139) 12.8 seconds 11.7-14.7 INR (BEAKER) (test pvaz=354) 1.0 <=5.9 PARTIAL THROMBOPLASTIN TIME (BEAKER) (test 26.8 seconds 22.5-36.0 nwxe=181) RECOMMENDED COUMADIN/WARFARIN INR THERAPY RANGESSTANDARD DOSE: 2.0 - 3.0 Includes: PROPHYLAXIS forvenous thrombosis, systemic embolization; TREATMENT for venous thrombosis and/or pulmonary embolus.HIGH RISK: Target INR is 2.5-3.5 for patients with mechanical heart valves.PROTHROMBIN [id number] 07:03: 00 Test Item Value Reference Range Comments PROTIME (BEAKER) (test krdt=827) 12.8 seconds 11.7-14.7 INR (BEAKER) (test tjpt=836) 1.0 <=5.9 RECOMMENDED COUMADIN/WARFARIN INR THERAPY RANGESSTANDARD DOSE: 2.0 - 3.0 Includes: PROPHYLAXIS forvenous thrombosis, systemic embolization; TREATMENT for venous thrombosis and/or pulmonary embolus.HIGH RISK: Target INR is 2.5-3.5 for patients with mechanical heart valves.
[2018-01-09 21:32] LABS: Absolute Lymphocytes (CBC) 0.4 K/uL (0.7-4.9); Absolute Neutrophil 9.7 K/uL (1.8-8.0); Basophils % 0.2 % (0-1.3); Hematocrit 39.1 % (36.0-45.0); Lymphocytes % 3.5 % (15.3-44.8); MCH 29.8 pg (27.0-35.0); MCV 91.7 fL (80-100); MPV 8.3 fL (7.6-11.3); Monocytes % 8.6 % (3.3-12.3); RBC Red Blood Cell Count 4.26 M/uL (3.86-4.86)
[2018-01-09 21:38] LABS: Protime INR 0.93
[2018-01-09 21:39] LABS: Arterial Blood Carboxyhemoglob 5.9 % (0-1.5); Blood Gas Oxyhemoglobin 76.5 % (94-97); Blood O2 Saturation 82.1 % (92-98.5)
[2018-01-09 21:50] LABS: Potassium 4.6 mEq/L (3.6-5.0)
[2018-01-09 21:56] LABS: Bilirubin Direct 0.1 mg/dL (0-0.2); Bilirubin Total 0.8 mg/dL (0.3-1.2); Magnesium 1.8 mg/dL (1.8-2.5); Protein, Total 6.6 g/dL (6.0-8.3)
[2018-01-09] MEDS ORDERED: NA CHLORIDE 0.9% 1,000 ML ONE (21:57)
[2018-01-09] MEDS ORDERED: IPRATROPIUM BROM 0.5MG/2.5ML ONE (21:57)
[2018-01-09] MEDS ORDERED: ALBUTEROL 2.5 MG/3 ML NEB SOL ONE (21:57)
[2018-01-09 21:58] LABS: CKMB Creatine Kinase MB 3.3 ng/ml (0.3-4.0)
[2018-01-09 22:11] LABS: Blood Morphology Comment NOT SEEN (NOT SEEN); Platelet Estimate ADEQ
[2018-01-09] MEDS ORDERED: ACETAMINOPHEN 500 MG TAB PO PRN (22:51)
[2018-01-09] MEDS ORDERED: ONDANSETRON 4 MG/2 ML VIAL IV PRN (22:51)
--- NOTE | 2018-01-09 22:57 | EDPHYS ---
Physician Documentation [facility] Name: Michelle Benson Age: 77 yrs Sex: Female : 1940 Arrival Date: 01/09/2018 Time: 20:59 Bed 3 Private MD: ED Physician Luke Gill HPI: 01/09 22:52 This 77 yrs old Female presents to ER via Wheelchair with unknown complaint. pkl 22:52 The patient has shortness of breath at rest. Onset: The symptoms/episode began/occurred pkl 3 day(s) ago. Associated signs and symptoms: Pertinent positives: productive cough. Historical: - Allergies: 21:32 Codeine; ea 21:32 perindopril erbumine; ea - Home Meds: 21:44 alendronate 70 mg Oral tab 1 tab once wkly [Active]; levothyroxine 100 mcg tab 1 tab ea once daily [Active]; Crestor 10 mg Oral tab 1 tab once daily [Active]; citalopram 40 mg tab 1 tab once daily [Active]; metoprolol tartrate 25 mg Oral tab 1 tab once daily [Active]; losartan 100 mg oral tab 1 tab once daily [Active]; hydralazine 25 mg Oral tab [Active]; clopidogrel 75 mg oral tab 1 tab once daily [Active]; Lyrica 50 mg Oral 1 cap [Active]; furosemide 20 mg Oral tab 1 tab once daily [Active]; anastrozole 1 mg Oral tab 1 tab once daily [Active]; prednisone 10 mg Oral tab once daily [Active]; ipratropium-albuterol 0.5 mg-3 mg(2.5 mg base)/3 mL Inhl nebu 4 times per day [Active]; Brovana 15 mcg/2 mL inhalation nebu 2 mL 2 times per day [Active]; potassium chloride 20 mEq oral TbER 1 tab [Active]; alendronate 70 mg/75 mL oral soln 75 mL once wkly [Active]; - PMHx: 21:32 CAD; Sleep Apnea; Pneumonia; Hypothyroidism; High Cholesterol; 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 - Social history:: Smoking status: Patient uses tobacco products, smokes one pack cigarettes per day. ROS: 22:52 Eyes: Negative for injury, pain, redness, and discharge, ENT: Negative for injury, pkl pain, and discharge, Neck: Negative for injury, pain, and swelling, Cardiovascular: Negative for chest pain, palpitations, and edema. 22:52 Respiratory: Positive for cough, shortness of breath. 22:52 Abdomen/GI: Negative for abdominal pain, nausea, vomiting, and diarrhea. 22:52 Back: Negative for acute changes. 22:52 : Negative for urinary symptoms. 22:52 MS/extremity: Negative for acute changes. 22:52 Skin: Negative for rash. 22:52 Neuro: Negative for altered mental status. Exam: 22:52 Head/Face: Normocephalic, atraumatic. Eyes: Pupils equal round and reactive to light, pkl extra-ocular motions intact. Lids and lashes normal. Conjunctiva and sclera are non-icteric and not injected. Cornea within normal limits. Periorbital areas with no swelling, redness, or edema. ENT: Nares patent. No nasal discharge, no septal abnormalities noted. Tympanic membranes are normal and external auditory canals are clear. Oropharynx with no redness, swelling, or masses, exudates, or evidence of obstruction, uvula midline. Mucous membranes moist. Neck: Trachea midline, no thyromegaly or masses palpated, and no cervical lymphadenopathy. Supple, full range of motion without nuchal rigidity, or vertebral point tenderness. No Meningismus. Chest/axilla: Normal chest wall appearance and motion. Nontender with no deformity. No lesions are appreciated. Cardiovascular: Regular rate and rhythm with a normal S1 and S2. No gallops, murmurs, or rubs. Normal PMI, no JVD. No pulse deficits. 22:52 Respiratory: moderate respiratory distress is noted, Respirations: labored breathing, pkl that is moderate, Breath sounds: rales, that are moderate, are scattered. 22:52 Abdomen/GI: Bowel sounds: normal, Palpation: abdomen is soft and non-tender, in all quadrants. 22:52 Back: Exam negative for acute changes. 22:52 : Exam negative for acute changes. 22:52 Musculoskeletal/extremity: Exam is negative for acute changes. 22:52 Skin: Exam negative for rash. 22:52 Neuro: Orientation: is normal, Mentation: is normal, Cranial nerves: grossly normal, Motor: is normal. Vital Signs: 21:00 BP 165 / 62; Pulse 104; Resp 33 S; Temp 99.6(O); Pulse Ox 96% on Non-rebreather mask; ea Weight 61.23 kg; Height 5 ft. 1 in. (154.94 cm); Pain 0/10; 22:00 BP 112 / 64; Pulse 94; Resp 24; Pulse Ox 97% on Nebulizer Mask; aa1 23:34 BP 104 / 57; Pulse 87; Resp 29; Temp 97.5(A); Pulse Ox 96% on BiPAP; oe 01/10 00:32 BP 128 / 61; Pulse 90; Resp 28 S; Pulse Ox 96% on 50% BiPAP; Pain 0/10; ea 01/09 21:00 Body Mass Index 25.51 (61.23 kg, 154.94 cm) ea MDM: 01/09 21:14 Patient medically screened. pkl 22:55 Data reviewed: vital signs, nurses notes, lab test result(s), EKG, radiologic studies, pkl plain films. 01/09 21:21 Order name: Basic Metabolic Panel; Complete Time: 22:25 pkl 01/09 21:21 Order name: BNP; Complete Time: 22:25 pkl 01/09 21:21 Order name: CBC with Diff; Complete Time: 22:25 pkl 01/09 21:21 Order name: Ckmb; Complete Time: 22:25 pkl 01/09 21:21 Order name: CPK; Complete Time: 22:25 pkl 01/09 21:21 Order name: LFT's; Complete Time: 22:25 pkl 01/09 21:21 Order name: Magnesium; Complete Time: 22:25 pkl 01/09 21:21 Order name: PT-INR; Complete Time: 22:25 pkl 01/09 21:21 Order name: Ptt, Activated; Complete Time: 22:25 pkl 01/09 21:21 Order name: Troponin (emerg Dept Use Only); Complete Time: 22:25 pkl 01/09 21:21 Order name: ABG; Complete Time: 22:25 pkl 01/09 21:21 Order name: Blood Culture Adult (2) pkl 01/09 21:21 Order name: Lactate; Complete Time: 22:25 pkl 01/09 21:21 Order name: Procalcitonin; Complete Time: 22:25 pkl 01/09 21:21 Order name: XRAY Chest (1 view) pk 01/09 21:33 Order name: Manual Differential; Complete Time: 22:25 EDMS 01/09 22:55 Order name: CBC with Automated Diff EDMS 01/09 22:55 Order name: CBC with Automated Diff EDMS 01/09 22:55 Order name: Comprehensive Metabolic Panel EDMS 01/09 22:55 Order name: Comprehensive Metabolic Panel EDMS 01/09 22:55 Order name: Lipid Profile EDMS 01/09 22:55 Order name: Lipid Profile EDMS 01/09 22:55 Order name: Magnesium EDMS 01/09 22:55 Order name: Magnesium EDMS 01/09 22:55 Order name: Phosphorus EDMS 01/09 22:55 Order name: Phosphorus EDMS 01/09 22:55 Order name: Troponin I EDMS 01/09 22:55 Order name: Troponin I EDAK 01/09 22:55 Order name: Troponin I EDAK 01/09 21:21 Order name: EKG; Complete Time: 21:22 pk 01/09 21:21 Order name: Cardiac monitoring; Complete Time: 21:23 pk 01/09 21:21 Order name: EKG - Nurse/Tech; Complete Time: 21:23 pk 01/09 21:21 Order name: IV Saline Lock; Complete Time: 21:32 pkl 01/09 21:21 Order name: Labs collected and sent; Complete Time: 21:32 pk 01/09 21:21 Order name: O2 Per Protocol; Complete Time: 21:32 pk 01/09 21:21 Order name: O2 Sat Monitoring; Complete Time: 21:23 pk 01/09 22:55 Order name: Heart Healthy EDMS Administered Medications: 21:42 Drug: Albuterol - atroVENT (3:1) (2.5 mg - 0.5 mg) 3 ml Route: Nebulizer; aa1 22:15 Follow up: Response: No adverse reaction ea 21:42 Drug: NS 0.9% 1000 ml Route: IV; Rate: 100 ml/hr; Site: left forearm; aa1 01/10 00:05 Follow up: Response: No adverse reaction; IV Status: Infusion continued upon admission ea Disposition: 01/09/18 22:57 Hospitalization ordered by Nick Lake for Inpatient Admission. Preliminary diagnosis is Acute dyspnea. Pneumonia. Hypoxia. - Bed requested for Telemetry/MedSurg (Inpatient). - Status is Inpatient Admission. ea - Condition is Stable. - Problem is new. - Symptoms are unchanged. UTI on Admission? No Signatures: Dispatcher [employer] Ann Colin RN RN aa1 Luke Gill MD MD pkl Garcia, Cindy, RN RN cg Antunez, Elena, RN RN ea
--- NOTE | 2018-01-09 22:57 | ER ---
Nurse's Notes [facility] Name: Michelle Benson Age: 77 yrs Sex: Female : 1940 Arrival Date: 01/09/2018 Time: 20:59 Bed 3 Private MD: Diagnosis: Acute dyspnea. Pneumonia. Hypoxia Presentation: 01/09 21:05 Presenting complaint: Upon arrival in room for triage pt on non re breather with O2 ea Sats at 90% . Pt groggy unable to answer questions. Room air sats reported to be 82%. Son at bedside reports she went to see her and noted she was having a hard time breathing and had not ate all day. Transition of care: patient was not received from another setting of care. Onset of symptoms was January 09, 2018. Care prior to arrival: None. 21:05 Method Of Arrival: Wheelchair ea 21:05 Acuity: RHIANNON 2 ea Triage Assessment: 21:05 General: Appears distressed, uncomfortable, Behavior is drowsy. Pain: Denies pain. ea EENT: No signs and/or symptoms were reported regarding the EENT system. EENT: Parent/caregiver reports the patient having son reports patient is hard of hearing. . Neuro: Level of Consciousness is obeys commands, lethargic, Oriented to person. Cardiovascular: Heart tones S1 S2 present Patient's skin is warm and dry. Respiratory: Airway is patent Respiratory effort is labored, Respiratory pattern is tachypnea Breath sounds are coarse bilaterally. Breath sounds with crackles bilaterally. GI: No signs and/or symptoms were reported involving the gastrointestinal system. Abdomen is non-distended. : No signs and/or symptoms were reported regarding the genitourinary system. Derm: Skin is dry, Skin is pale, Skin temperature is warm. Historical: - Allergies: 21:32 Codeine; ea 21:32 perindopril erbumine; ea - Home Meds: 21:44 alendronate 70 mg Oral tab 1 tab once wkly [Active]; levothyroxine 100 mcg tab 1 tab ea once daily [Active]; Crestor 10 mg Oral tab 1 tab once daily [Active]; citalopram 40 mg tab 1 tab once daily [Active]; metoprolol tartrate 25 mg Oral tab 1 tab once daily [Active]; losartan 100 mg oral tab 1 tab once daily [Active]; hydralazine 25 mg Oral tab [Active]; clopidogrel 75 mg oral tab 1 tab once daily [Active]; Lyrica 50 mg Oral 1 cap [Active]; furosemide 20 mg Oral tab 1 tab once daily [Active]; anastrozole 1 mg Oral tab 1 tab once daily [Active]; prednisone 10 mg Oral tab once daily [Active]; ipratropium-albuterol 0.5 mg-3 mg(2.5 mg base)/3 mL Inhl nebu 4 times per day [Active]; Brovana 15 mcg/2 mL inhalation nebu 2 mL 2 times per day [Active]; potassium chloride 20 mEq oral TbER 1 tab [Active]; alendronate 70 mg/75 mL oral soln 75 mL once wkly [Active]; - PMHx: 21:32 CAD; Sleep Apnea; Pneumonia; Hypothyroidism; High Cholesterol; 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 - Social history:: Smoking status: Patient uses tobacco products, smokes one pack cigarettes per day. Screenin:57 Abuse screen: Denies threats or abuse. Nutritional screening: No deficits noted. ea Tuberculosis screening: No symptoms or risk factors identified. Fall Risk None identified. Assessment: 21:32 Reassessment: Patient and/or family updated on plan of care and expected duration. Pain ea level reassessed. RT at bedside, pt placed on bi pap \T\ 50%, O2, tolerating well. 22:56 Reassessment: O2 sats 88% on BiPAP 35% O2 RT at bedside increased settings to 1216, 14 ea and 60% O2 sats at 95%, settings titrated FiO2 at 50% O2 sats 91%. 23:35 Reassessment: Patient and/or family updated on plan of care and expected duration. Pain ea level reassessed. Son at bedside, pt resting with eyes closed, chest expansions even and symmetrical, respirations even and unlabored, pt remains on BiPAP O2 \T\ 50% O2 sats 92%. 23:57 Reassessment: Report called to Jonna ROBERTSON on fourth floor. ea 01/10 00:15 Reassessment: Patient and/or family updated on plan of care and expected duration. Pain ea level reassessed. Respirations even and unlabored, chest expansions even and symmetrical, RT at bedside, pt transferred to fourth floor tolerated well. Vital Signs: 01/09 21:00 BP 165 / 62; Pulse 104; Resp 33 S; Temp 99.6(O); Pulse Ox 96% on Non-rebreather mask; ea Weight 61.23 kg; Height 5 ft. 1 in. (154.94 cm); Pain 0/10; 22:00 BP 112 / 64; Pulse 94; Resp 24; Pulse Ox 97% on Nebulizer Mask; aa1 23:34 BP 104 / 57; Pulse 87; Resp 29; Temp 97.5(A); Pulse Ox 96% on BiPAP; oe 01/10 00:32 BP 128 / 61; Pulse 90; Resp 28 S; Pulse Ox 96% on 50% BiPAP; Pain 0/10; ea 01/09 21:00 Body Mass Index 25.51 (61.23 kg, 154.94 cm) ea ED Course: 01/09 20:59 Patient arrived in ED. rg2 21:05 EKG done, by ED staff, reviewed by Luke Gill MD. aa1 21:05 Patient has correct armband on for positive identification. Bed in low position. Call ea light in reach. Side rails up X2. Pt's son at bedside. 21:05 Arm band placed on left wrist. Patient placed in an exam room, on a stretcher, on ea oxygen, on equipment monitor phototypesetting, on pulse oximetry. 21:10 Missed attempt(s): 20 gauge in left antecubital area. Bleeding controlled, band aid ea applied, catheter tip intact. 21:12 Initial lab(s) drawn, by me, sent to lab. First set of blood cultures drawn by me. aa1 Inserted saline lock: 20 gauge in left forearm, using aseptic technique. 21:14 Luke Gill MD is Attending Physician. pkl 21:28 Ellie Arana, AILYN is Primary Nurse. ea 21:34 Second set of blood cultures drawn by me. aa1 21:50 Triage completed. ea 21:51 X-ray completed. Portable x-ray completed in exam room. Patient tolerated procedure la2 well. 21:54 XRAY Chest (1 view) In Process Unspecified. EDMS 22:56 Nick Lake MD is Hospitalizing Provider. pkl 23:33 No provider procedures requiring assistance completed. Patient admitted, IV remains in ea place. Administered Medications: 21:42 Drug: Albuterol - atroVENT (3:1) (2.5 mg - 0.5 mg) 3 ml Route: Nebulizer; aa1 22:15 Follow up: Response: No adverse reaction ea 21:42 Drug: NS 0.9% 1000 ml Route: IV; Rate: 100 ml/hr; Site: left forearm; aa1 01/10 00:05 Follow up: Response: No adverse reaction; IV Status: Infusion continued upon admission ea Outcome: 01/09 22:57 Decision to Hospitalize by Provider. pkl 23:00 Instructed on the need for admit, Patient's son instructed on the need for admit ea Demonstrated understanding of instructions. 01/10 00:28 Admitted to Med/surg accompanied by tech, via stretcher, room 415, with oxygen, on ea monitor, with chart, Report called to Jonna ROBERTSON Condition: stable 00:33 Patient left the ED. ea Signatures: Dispatcher [employer] Shruthi Deal rg2 Ann Prakash, RN RN aa1 Luke Gill MD MD pkTalon Gill Elena, RN RN samia Santos Candiceluciano banegas
[2018-01-09] MEDS ORDERED: NA CHLORIDE 0.9% 1,000 ML IV SCH (23:00)
[2018-01-10] MEDS: ALBUTEROL 2.5 MG/3 ML NEB SOL NEB SCH ×4 (01:41→20:00)
[2018-01-10] MEDS: IPRATROPIUM BROM 0.5MG/2.5ML NEB SCH ×4 (01:41→20:00)
[2018-01-10 05:50] LABS: Absolute Lymphocytes (CBC) 0.4 K/uL (0.7-4.9); Absolute Monocytes 0.8 K/uL (0.1-1.3); Absolute Neutrophil 7.4 K/uL (1.8-8.0); Basophils % 0.1 % (0-1.3); Hematocrit 34.3 % (36.0-45.0); Lymphocytes % 5.1 % (15.3-44.8); MCH 29.5 pg (27.0-35.0); MCV 92.9 fL (80-100); MPV 8.4 fL (7.6-11.3); Monocytes % 9.6 % (3.3-12.3); RBC Red Blood Cell Count 3.69 M/uL (3.86-4.86)
[2018-01-10] MEDS ORDERED: NA CHLORIDE 0.9% 1,000 ML IV SCH (06:00)
[2018-01-10 06:16] LABS: Albumin 2.9 g/dL (3.2-5.5); Bilirubin Total 0.7 mg/dL (0.3-1.2); Magnesium 1.8 mg/dL (1.8-2.5); Phosphorus 3.9 mg/dL (2.5-4.3); Potassium 4.8 mEq/L (3.6-5.0); Protein, Total 4.8 g/dL (6.0-8.3)
[2018-01-10] MEDS ORDERED: METHYLPREDNISOLONE 125 MG INJ IV SCH (07:07)
--- NOTE | 2018-01-10 07:14 | P.HP ---
Certification for Inpatient Patient admitted to: Inpatient With expected LOS: >2 Midnights Practitioner: I am a practitioner with admitting privileges, knowledge of patient current condition, hospital course, and medical plan of care. Services: Services provided to patient in accordance with Admission requirements found in Title 42 Section 412.3 of the Code of Federal Regulations Patient History Date of Service: 01/09/18 Reason for admission: COPD exacerbation History of Present Illness: Patient is a 77-year-old female who came into the hospital with difficulty breathing. Patient was seen in the emergency room and her O2 sats was 54%. Patient was started on nebs and O2. Her oxygenation was not improving so patient was placed on BiPAP. Patient was given nebs, steroids, and antibiotics. Patient BNP was elevated to those concern for CHF however the last echocardiogram did not reveal any systolic dysfunction. Patient may have diastolic dysfunction and will need to repeat an echocardiogram. Will Hep-Lock IV and monitor volume status closely. Patient does appear to be dehydrated for labs so will monitor this closely. We may have to diurese patient as well. Otherwise, no new complaints. Patient's son is at bedside with her. We will continue with current plan of care at this time. Allergies codeine Allergy (Verified 01/10/18 02:21) Unknown perindopril erbumine [From Aceon] Allergy (Verified 01/10/18 02:21) UNKNOWN Home Medications: Citalopram [Celexa*] 40 mg PO DAILY 02/26/14 Furosemide [Lasix*] 20 mg PO DAILY 02/26/14 Levothyroxine [Synthroid*] 100 mcg PO [id number] 02/26/14 Metoprolol Succinate [Toprol Xl*] 25 mg PO [id number] 02/26/14 Pregabalin [Lyrica] 50 mg PO BEDTIME 02/26/14 Tiotropium [place] [Spiriva] 2 puff IH DAILY 02/26/14 Zolpidem Tartrate [Ambien*] 10 mg PO BEDTIME PRN PRN #0 tablet 03/02/14 Alendronate Sodium 70 mg PO EVERY 7TH DAY 01/12/17 Clopidogrel Bisulfate [Plavix*] 75 mg PO DAILY 01/12/17 Rosuvastatin Calcium [Crestor] 10 mg PO DAILY 01/12/17 Tramadol HCl [Ultram] 50 mg PO Q6HP PRN 01/12/17 Losartan Potassium 100 mg PO DAILY 02/16/17 Roflumilast [Daliresp*] 500 mcg PO DAILY 02/16/17 Vit D3/Folic Acid/B2/B6/B12 [Folgard Tablet] 1 each PO DAILY 02/16/17 Hydralazine [Apresoline*] 25 mg PO TID PRN #60 tab 03/15/17 Acetaminophen [Pain Relief 8Hr] 1 tab PO DAILY 01/10/18 Albuterol Sulfate [Ventolin Hfa] 2 puff IH Q4H 01/10/18 Arformoterol Tartrate [Brovana] 2 ml IH DAILY 01/10/18 Benzonatate [Tessalon Perle*] 1 cap PO DAILY 01/10/18 Potassium Chloride 1 tab PO DAILY 01/10/18 Prednisone [Prednisone*] 10 mg PO DAILY 01/10/18 Tiotropium [place] [Spiriva Respimat] 2 puff IH DAILY 01/10/18 - Past Medical/Surgical History Diabetic: No -: History of breast cancer -: History of throat cancer -: Hypertension -: Hypothyroidism -: COPD, steroid and oxygen-dependent -: Peripheral vascular disease -: Carotid arterial disease -: CHF -: Hyperlipidemia -: Obstructive sleep apnea -: Neuropathy -: Tobacco abuse( quit 1 month ago) -: Hysterectomy -: Hemorrhoidectomy -: Radiation to the vocal cords -: Stents to the lower extremity and carotid -: Bilateral eye surgery -: Left-sided mastectomy -: chemotherapy Psychosocial/ Personal History: Patient is . She has children. She does not work. - Family History Father Medical History: Heart disease Mother Medical History: Cancer Sister Medical History: Cancer Notes: Brother Medical History: Heart disease Notes: - Social History Smoking Status: Current every day smoker Alcohol use: Yes CD- Drugs: No Caffeine use: Yes Place of Residence: Home Review of Systems 10-point ROS is otherwise unremarkable Physical Examination - Vital Signs Temperature: 98 F Blood Pressure: 127/71 Pulse: 90 Respirations: 18 Pulse Ox (%): 100 - Physical Exam General: Alert, In no apparent distress, Oriented x2 HEENT: Atraumatic, PERRLA, Mucous membr. moist/pink, EOMI, Sclerae nonicteric Neck: Supple, 2+ carotid pulse no bruit, No LAD, Without JVD or thyroid abnormality Respiratory: Diminished, Expiratory wheezes Cardiovascular: Regular rate/rhythm, Normal S1 S2, Systolic murmur Gastrointestinal: Normal bowel sounds, Soft and benign, Non-distended, No tenderness Musculoskeletal: No clubbing, No swelling, No tenderness Integumentary: No rashes Neurological: Normal gait, Normal speech, Normal strength at 5/5 x4 extr, Normal tone, Sensation intact, Cranial nerves 3-12 intact, Normal affect Lymphatics: No axilla or inguinal lymphadenopathy - Studies Laboratory Data (last 24 hrs) 01/09/18 21:18: PT 11.0, INR 0.93, APTT 24.6 01/09/18 21:18: WBC 11.1 H, Hgb 12.7, Hct 39.1, Plt Count 317 01/09/18 21:18: B-Natriuretic Peptide 904 H 01/09/18 21:18: Sodium 135, Potassium 4.6, BUN 28 H, Creatinine 1.23 H, Glucose 101, Magnesium 1.8, Total Bilirubin 0.8, AST 24, ALT 13, Alkaline Phosphatase 51 Assessment & Plan - Problems (Diagnosis) (1) History of CHF (congestive heart failure) Current Visit: Yes Status: Acute (2) Hypoxemia Current Visit: Yes Status: Acute (3) Hypertensive disorder, systemic arterial Current Visit: No Status: Active (4) COPD exacerbation Onset Date: 02/17/17 Current Visit: No Status: Acute (5) Coronary arteriosclerosis Current Visit: No Status: Acute (6) Depressive disorder Current Visit: No Status: Acute (7) Carotid arterial disease Current Visit: No Status: Chronic Qualifiers: (8) Hyperlipidemia Current Visit: No Status: Chronic Qualifiers: (9) Hypertension Current Visit: No Status: Chronic Qualifiers: (10) Hypothyroidism Current Visit: No Status: Chronic Qualifiers: (11) Obstructive sleep apnea Current Visit: No Status: Chronic - Plan 1. Continue with nebs, steroids, and IV antibiotics 2. Awaiting sputum culture 3. Repeat chest x-ray 4. Will proceed with CT scan of the chest if patient's symptoms are not improving 5. Pulmonary consultation 6. Continue with nebs as needed 7. O2 per protocol 8. Hep-Lock the IV and echocardiogram 9. Repeat labs including CBC and renal function in a.m. 10. GI and DVT prophylaxis Discharge Plan: Home Plan to discharge in: Greater than 2 days - Advance Directives Does patient have a Living Will: Yes Does patient have a Durable POA for Healthcare: Yes - Code Status/Comfort Care Code Status Assessed: Yes Code Status: Full Code Critical Care: No Time Spent Managing PTS Care (In Minutes): 50
[2018-01-10] MEDS: METHYLPREDNISOLONE 40 MG INJ IV SCH ×2 (08:57→17:43)
[2018-01-10] MEDS: Levofloxacin 750mg IV 750 MG/150 ML BAG IV SCH (08:57)
[2018-01-10] MEDS: ENOXAPARIN 40 MG/0.4 ML SQ SCH (08:57)
--- NOTE | 2018-01-10 08:57 | RAD REPORT ---
EXAM DESCRIPTION: [facility] Single View01/09/2018 9:54 pm CLINICAL HISTORY: Shortness of breath COMPARISON: none FINDINGS: Moderate patchy opacities are present within the right lung base. The left lung appears clear of acute infiltrate. The heart is normal size IMPRESSION: Moderate right basilar pneumonia
[2018-01-10] MEDS ORDERED: CEFTRIAXONE 1 GM/NS 50 ML 1 GM/50 ML BAG IV SCH (09:00)
[2018-01-10] MEDS ORDERED: AZITHROMYCIN IV 500 MG in NA CHLORIDE 0.9% 250 ML IVPB SCH (09:00)
[2018-01-10] MEDS ORDERED: MAGNESIUM SULFATE 1 gm IVPB 1 GM/100 ML BAG IV ONE (09:00)
[2018-01-10] MEDS ORDERED: CEFTRIAXONE/SWI 1gm 1 GM/10 ML SYR IV SCH (09:00)
--- NOTE | 2018-01-10 10:47 | P.CNS ---
Date of Consult: 01/10/18 Reason for Consult: COPD pneumonia Chief Complaint: COPD exacerbation History of Present Illness: Patient is 77 years of age well known to me with a history of terminal severe COPD still continues to smoke according to the son has been sick for the past 4 days worsening shortness of breath patient is minimally responsive was admitted with mild hypercapnia coughing up some productive phlegm no fever or chills was admitted with a diagnosis of right lower lobe pneumonia and COPD Allergies codeine Allergy (Verified 01/10/18 02:21) Unknown perindopril erbumine [From Aceon] Allergy (Verified 01/10/18 02:21) UNKNOWN Home Medications: Citalopram [Celexa*] 40 mg PO DAILY 02/26/14 Furosemide [Lasix*] 20 mg PO DAILY 02/26/14 Levothyroxine [Synthroid*] 100 mcg PO [id number] 02/26/14 Metoprolol Succinate [Toprol Xl*] 25 mg PO [id number] 02/26/14 Pregabalin [Lyrica] 50 mg PO BEDTIME 02/26/14 Tiotropium [place] [Spiriva] 2 puff IH DAILY 02/26/14 Zolpidem Tartrate [Ambien*] 10 mg PO BEDTIME PRN PRN #0 tablet 03/02/14 Alendronate Sodium 70 mg PO EVERY 7TH DAY 01/12/17 Clopidogrel Bisulfate [Plavix*] 75 mg PO DAILY 01/12/17 Rosuvastatin Calcium [Crestor] 10 mg PO DAILY 01/12/17 Tramadol HCl [Ultram] 50 mg PO Q6HP PRN 01/12/17 Losartan Potassium 100 mg PO DAILY 02/16/17 Roflumilast [Daliresp*] 500 mcg PO DAILY 02/16/17 Vit D3/Folic Acid/B2/B6/B12 [Folgard Tablet] 1 each PO DAILY 02/16/17 Hydralazine [Apresoline*] 25 mg PO TID PRN #60 tab 03/15/17 Acetaminophen [Pain Relief 8Hr] 1 tab PO DAILY 01/10/18 Albuterol Sulfate [Ventolin Hfa] 2 puff IH Q4H 01/10/18 Arformoterol Tartrate [Brovana] 2 ml IH DAILY 01/10/18 Benzonatate [Tessalon Perle*] 1 cap PO DAILY 01/10/18 Potassium Chloride 1 tab PO DAILY 01/10/18 Prednisone [Prednisone*] 10 mg PO DAILY 01/10/18 Tiotropium [place] [Spiriva Respimat] 2 puff IH DAILY 01/10/18 - Past Medical/Surgical History Diabetic: No -: History of breast cancer -: History of throat cancer -: Hypertension -: Hypothyroidism -: COPD, steroid and oxygen-dependent -: Peripheral vascular disease -: Carotid arterial disease -: CHF -: Hyperlipidemia -: Obstructive sleep apnea -: Neuropathy -: Tobacco abuse( quit 1 month ago) -: Hysterectomy -: Hemorrhoidectomy -: Radiation to the vocal cords -: Stents to the lower extremity and carotid -: Bilateral eye surgery -: Left-sided mastectomy -: chemotherapy Psychosocial/ Personal History: Patient is . She has children. She does not work. - Family History Father Medical History: Heart disease Mother Medical History: Cancer Sister Medical History: Cancer Notes: Brother Medical History: Heart disease Notes: - Social History Smoking Status: Current every day smoker Alcohol use: Yes CD- Drugs: No Caffeine use: Yes Place of Residence: Home Review of Systems is unable to be obtained Physical Examination Temp Pulse Resp BP Pulse Ox 98.5 F 85 20 138/68 90 L 01/10/18 08:00 01/10/18 08:00 01/10/18 08:00 01/10/18 08:00 01/10/18 08:00 General: Other HEENT: Atraumatic Neck: Supple Respiratory: Clear to auscultation bilaterally, Crackles/rales (Crackles at the right base), Expiratory wheezes Cardiovascular: No edema, Regular rate/rhythm, Normal S1 S2 Gastrointestinal: Normal bowel sounds, Soft and benign Laboratory Data (last 24 hrs) 01/09/18 21:18: PT 11.0, INR 0.93, APTT 24.6 01/09/18 21:18: WBC 11.1 H, Hgb 12.7, Hct 39.1, Plt Count 317 01/09/18 21:18: B-Natriuretic Peptide 904 H 01/09/18 21:18: Sodium 135, Potassium 4.6, BUN 28 H, Creatinine 1.23 H, Glucose 101, Magnesium 1.8, Total Bilirubin 0.8, AST 24, ALT 13, Alkaline Phosphatase 51 - Problems (1) Chronic obstructive lung disease COPD Current Visit: No Status: Acute Plan: Patient is 77 years of age well known to me with a history of terminal COPD active smoker admitted with worsening dyspnea she appears to have a right lower lobe infiltrate CT scan of the chest to rule out thromboembolism she has a high risk patient is hypoxic hypercapnic elevated pro calcitonin levels and D-dimer levels med list reviewed continue with steroids change advisor to a levofloxacin she is high risk for resistant organisms titrate sat to 90%
[2018-01-10] MEDS ORDERED: HYDRALAZINE HCL 25 MG TABLET PO PRN (12:03)
--- NOTE | 2018-01-10 12:44 | EKG ---
Test Date: 2018-01-09 Test Time: 21:09:19 Food Beverage Server: RICARDO MEASUREMENT RESULTS: Intervals: Rate: 103 LA: 128 QRSD: 82 QT: 356 QTc: 466 [place]: P: 72 LA: 128 QRS: 41 T: 79 INTERPRETIVE STATEMENTS: Sinus tachycardia with occasional premature ventricular complexes Possible Left atrial enlargement Borderline ECG Compared to ECG 04/25/2017 23:59:59 Ventricular premature complex(es) now present Sinus rhythm no longer present Prolonged QT interval no longer present Electronically Signed On 01-10-18 12:43:52 CDT by Prashant Patiño
--- NOTE | 2018-01-10 13:56 | RAD REPORT ---
EXAM DESCRIPTION: CT - Chest For Pe Angio - 01/10/2018 12:20 pm CLINICAL HISTORY: Chest pain COMPARISON: None. TECHNIQUE: Dynamically enhanced axial 3 mm thick images of the chest were obtained during administra tion of <100> mL Isovue 370 IV contrast. Coronal and oblique reconstruction images were generated and reviewed. Exam utilizes a protocol for optimal evaluation of pulmonary arterial tree. All CT scans are performed using dose optimization technique as appropriate and may include automated exposure control or mA/KV adjustment according to patient size. FINDINGS: A pulmonary embolus is not seen. A thoracic aortic aneurysm is not noted. A pleural effusion is not seen. A pericardial effusion is not seen. A right lower lobe consolidation is present. Centrilobular emphysema is seen IMPRESSION: Negative for a pulmonary embolism. Right lower lobe consolidation consistent with pneumonia
--- NOTE | 2018-01-10 19:07 | PN ---
Date of Progress Note: 01/10/2018 Subjective: The patient is seen and examined. Chart reviewed and case discussed with RN and Dr. Oscar dyson. The patient is a very somnolent and in some mild distress. Family at the bedside. Treatment plan explained. All questions answered. Review of Systems: Negative except as above. Medications: Reviewed. Physical Examination: Vital Signs: Temperature 98.5, heart rate 85, blood pressure 138/68, respirations 20, O2 90% on 4 L nasal cannula. General: Asleep but arousable. Oriented x3. Some mild distress. Elderly female, ill-appearing. CV: S1, S2. No murmurs. Regular rate and rhythm. Peripheral pulses present bilaterally. Respiratory: Some diminished breath tones. Mild wheezing. No stridor. No use of accessory muscles . Gastrointestinal: Abdomen is soft, nontender, nondistended. Positive bowel sounds. Extremities: No clubbing, cyanosis, or edema. Neurologic: Nonfocal. Laboratory Data: WBC 8.7, H and H 10.9, 34.3, platelets 249, neutrophils 85%. D-dimer 1767. Sodium 134, potassium 4.8, chloride 100, CO2 28, BUN 28, creatinine 1.06, glucose 99, lactic acid 15.4, shane cium 8.8. Troponin 0.18, 0.20, 0.12, albumin 2.9. Blood gases are 0.45. Blood cultures pending. C T angio chest shows no PE, right lower lobe consolidation consistent with pneumonia. Assessment: 1.Hypoxia. We will continue supplemental oxygen. Appreciate Dr. Charles's input, likely secondary to pneumonia. 2.Right lower lobe pneumonia. Continue IV antibiotics. Follow up on blood cultures. 3.Essential hypertension. 4.History of diastolic heart failure, chronic. 5.Acute chronic obstructive pulmonary disease exacerbation. Continue with DuoNeb treatments and IV steroids. 6.Coronary artery disease [place] artery and [place] heart without angina. 7.Elevated troponin level trending down. 8.Major depressive disorder. 9.Carotid artery disease. 10.Hyperlipidemia. 11.Essential hypothyroidism. We will continue Synthroid. 12.Obstructive sleep apnea, on CPAP. 13.History of breast cancer. 14.History of throat cancer. 15.Peripheral vascular disease. 16.Neuropathy. Plan: As above. SA/MODL Voice ID: [id number] Report ID: [id number]
[2018-01-10] MEDS: ROSUVASTATIN 10 MG TAB PO SCH (22:05)
[2018-01-10] MEDS: PREGABALIN 50 MG CAP PO SCH (22:05)
[2018-01-11] MEDS: IPRATROPIUM BROM 0.5MG/2.5ML NEB SCH ×4 (01:29→19:30)
[2018-01-11] MEDS: ALBUTEROL 2.5 MG/3 ML NEB SOL NEB SCH ×4 (01:29→19:30)
[2018-01-11] MEDS: METHYLPREDNISOLONE 40 MG INJ IV SCH ×3 (01:45→17:35)
[2018-01-11 04:21] LABS: Absolute Lymphocytes (CBC) 0.2 K/uL (0.7-4.9); Absolute Monocytes 0.7 K/uL (0.1-1.3); Absolute Neutrophil 9.8 K/uL (1.8-8.0); Lymphocytes % 1.4 % (15.3-44.8); MCH 29.9 pg (27.0-35.0); MPV 8.8 fL (7.6-11.3); Monocytes % 6.9 % (3.3-12.3); RBC Red Blood Cell Count 3.44 M/uL (3.86-4.86)
[2018-01-11 04:36] LABS: Albumin 3.1 g/dL (3.2-5.5); Bilirubin Total 0.6 mg/dL (0.3-1.2); Protein, Total 5.7 g/dL (6.0-8.3)
[2018-01-11] MEDS: METOPROLOL XL 25 MG TAB PO SCH (06:18)
[2018-01-11] MEDS: LEVOTHYROXINE SOD 0.1 MG TAB PO SCH (06:18)
[2018-01-11] MEDS: ARFORMOTEROL TARTRATE 15 MCG/2 ML VIAL.NEB NEB SCH (07:50)
[2018-01-11] MEDS ORDERED: TIOTROPIUM 5 SPRAYS/INHALER IH SCH (09:00)
[2018-01-11] MEDS: CITALOPRAM 10 MG TABLET PO SCH (09:13)
[2018-01-11] MEDS: BENZONATATE 100 MG CAP PO SCH (09:13)
[2018-01-11] MEDS: ENOXAPARIN 40 MG/0.4 ML SQ SCH (09:13)
[2018-01-11] MEDS: FUROSEMIDE 20 MG TABLET PO SCH (09:13)
[2018-01-11] MEDS: POTASSIUM CL SA 10 MEQ TAB PO SCH (09:13)
[2018-01-11] MEDS: ROFLUMILAST 500 MCG TABLET PO SCH (09:14)
[2018-01-11] MEDS: CLOPIDOGREL 75 MG TABLET PO SCH (09:14)
[2018-01-11] MEDS: Levofloxacin 750mg IV 750 MG/150 ML BAG IV SCH (09:14)
[2018-01-11] MEDS: LOSARTAN POTASSIUM 50 MG TABLET PO SCH (09:14)
[2018-01-11] MEDS ORDERED: ZOLPIDEM TARTRATE 5 MG TABLET PO PRN (20:06)
[2018-01-11] MEDS: ROSUVASTATIN 10 MG TAB PO SCH (21:00)
[2018-01-11] MEDS: PREGABALIN 50 MG CAP PO SCH (21:00)
[2018-01-11] MEDS: TRAMADOL HCL 50 MG TAB PO PRN (21:03)
--- NOTE | 2018-01-11 22:24 | PN ---
Date of Progress Note: 01/11/2018 The patient states she still feels quite bad, short of breath with minimal exertion. However, oxygen levels have been significantly better than on admission but still not compatible with any exertion. We will continue with the antibiotics, try and keep little more comfortable with the addition of tra madol to her regimen. She will take another few days of the antibiotics to do her desired outcome. HR/MODL Voice ID: [id number] Report ID: [id number]
[2018-01-12] MEDS: METHYLPREDNISOLONE 40 MG INJ IV SCH (01:06)
[2018-01-12] MEDS: IPRATROPIUM BROM 0.5MG/2.5ML NEB SCH ×4 (01:51→20:15)
[2018-01-12] MEDS: ALBUTEROL 2.5 MG/3 ML NEB SOL NEB SCH ×2 (01:51→08:59)
[2018-01-12 04:53] LABS: Absolute Lymphocytes (CBC) 0.1 K/uL (0.7-4.9); Absolute Monocytes 0.5 K/uL (0.1-1.3); Absolute Neutrophil 8.2 K/uL (1.8-8.0); Basophils % 0.1 % (0-1.3); Hematocrit 31.2 % (36.0-45.0); Lymphocytes % 1.6 % (15.3-44.8); MCH 29.8 pg (27.0-35.0); MCV 91.2 fL (80-100); MPV 8.1 fL (7.6-11.3); Monocytes % 5.8 % (3.3-12.3); RBC Red Blood Cell Count 3.42 M/uL (3.86-4.86)
[2018-01-12 05:09] LABS: Bilirubin Total 0.5 mg/dL (0.3-1.2); Potassium 5.3 mEq/L (3.6-5.0); Protein, Total 5.5 g/dL (6.0-8.3)
[2018-01-12] MEDS: LEVOTHYROXINE SOD 0.1 MG TAB PO SCH (06:11)
[2018-01-12] MEDS: METOPROLOL XL 25 MG TAB PO SCH (06:11)
[2018-01-12] MEDS ORDERED: ZOLPIDEM TARTRATE 10 MG TABLET PO PRN (08:41)
[2018-01-12] MEDS ORDERED: ALBUTEROL 2.5 MG/3 ML NEB SOL NEB PRN (08:41)
--- NOTE | 2018-01-12 08:45 | P.PN ---
Subjective Date of Service: 01/12/18 Chief Complaint: COPD exacerbation Subjective: Improving (Patient is doing well she is alert responsive cooperative ) Review of Systems General: Weakness Respiratory: Cough, Shortness of Breath Physical Examination - Vital Signs Temperature: 97 F Blood Pressure: 149/77 Pulse: 76 Respirations: 24 Pulse Ox (%): 95 - Physical Exam General: Alert, Oriented x3 Respiratory: Clear to auscultation bilaterally, Rhonchi/gurgles Cardiovascular: No edema, Normal pulses Assessment & Plan - Problems (Diagnosis) (1) Chronic obstructive lung disease COPD Current Visit: No Status: Acute Plan: Patient is chronic stable COPD (2) Pneumonia Current Visit: Yes Status: Acute Plan: Patient admitted with a right lower lobe pneumonia doing well change to p.o. levofloxacin 750 mg daily for 7 days patient can be discharged home resume home medications Qualifiers: Pneumonia type: due to unspecified organism
[2018-01-12] MEDS: ARFORMOTEROL TARTRATE 15 MCG/2 ML VIAL.NEB NEB SCH (08:58)
[2018-01-12] MEDS: POTASSIUM CL SA 10 MEQ TAB PO SCH ×2 (09:43→09:47)
[2018-01-12] MEDS: FUROSEMIDE 20 MG TABLET PO SCH (09:46)
[2018-01-12] MEDS: CITALOPRAM 10 MG TABLET PO SCH (09:47)
[2018-01-12] MEDS: levoFLOXacin 750 MG TAB PO SCH (09:49)
[2018-01-12] MEDS: BENZONATATE 100 MG CAP PO SCH (09:49)
[2018-01-12] MEDS: LOSARTAN POTASSIUM 50 MG TABLET PO SCH (09:49)
[2018-01-12] MEDS: CLOPIDOGREL 75 MG TABLET PO SCH (09:49)
[2018-01-12] MEDS: ROFLUMILAST 500 MCG TABLET PO SCH (09:49)
[2018-01-12] MEDS: ENOXAPARIN 40 MG/0.4 ML SQ SCH (09:49)
[2018-01-12] MEDS: predniSONE 10 MG TAB PO SCH ×2 (09:51→21:18)
[2018-01-12] MEDS: TRAMADOL HCL 50 MG TAB PO PRN (14:13)
--- NOTE | 2018-01-12 20:24 | PN ---
Date of Progress Note: 01/12/2018 The patient has improved slightly. Symptomatic ruth, O2 levels have been improved. I feel she could be discharged in the a.m. with home health, which will be ordered this afternoon. Continue on the u sual home medicines with the additional prednisone for 1 week with Levaquin. Followup with me in [address] [place] [address] Garcia in 2. HR/MODL Voice ID: [id number] Report ID: [id number]
[2018-01-12] MEDS: ROSUVASTATIN 10 MG TAB PO SCH (21:16)
[2018-01-12] MEDS: PREGABALIN 50 MG CAP PO SCH (21:18)
[2018-01-13] MEDS: IPRATROPIUM BROM 0.5MG/2.5ML NEB SCH ×2 (02:02→09:33)
[2018-01-13 05:02] LABS: Absolute Lymphocytes (CBC) 0.2 K/uL (0.7-4.9); Absolute Monocytes 0.8 K/uL (0.1-1.3); Absolute Neutrophil 10.4 K/uL (1.8-8.0); Basophils % 0.1 % (0-1.3); Hematocrit 32.4 % (36.0-45.0); MCH 29.1 pg (27.0-35.0); MCV 92.6 fL (80-100); MPV 8.8 fL (7.6-11.3); Monocytes % 7.3 % (3.3-12.3)
[2018-01-13 05:20] LABS: Albumin 2.8 g/dL (3.2-5.5); Bilirubin Total 0.5 mg/dL (0.3-1.2); Magnesium 2.2 mg/dL (1.8-2.5); Protein, Total 5.4 g/dL (6.0-8.3)
[2018-01-13 05:31] LABS: Potassium 5.5 mEq/L (3.6-5.0)
[2018-01-13 05:37] VITALS: BP 150/70; TEMP 97.5
[2018-01-13] MEDS: LEVOTHYROXINE SOD 0.1 MG TAB PO SCH (06:35)
[2018-01-13] MEDS: METOPROLOL XL 25 MG TAB PO SCH (06:35)
[2018-01-13 06:38] VITALS: BMI 21.0
[2018-01-13 07:14] LABS: Anisocytosis 1+; Blood Morphology Comment NOTED (NOT SEEN); Platelet Estimate ADEQ
[2018-01-13] MEDS: ARFORMOTEROL TARTRATE 15 MCG/2 ML VIAL.NEB NEB SCH (09:33)
[2018-01-13 10:59] VITALS: O2SAT 96
[2018-01-13] MEDS: ENOXAPARIN 40 MG/0.4 ML SQ SCH (11:25)
[2018-01-13] MEDS: LOSARTAN POTASSIUM 50 MG TABLET PO SCH (11:26)
[2018-01-13] MEDS: levoFLOXacin 750 MG TAB PO SCH (11:26)
[2018-01-13] MEDS: CLOPIDOGREL 75 MG TABLET PO SCH (11:26)
[2018-01-13] MEDS: BENZONATATE 100 MG CAP PO SCH (11:26)
[2018-01-13] MEDS: FUROSEMIDE 20 MG TABLET PO SCH (11:26)
[2018-01-13] MEDS: POTASSIUM CL SA 10 MEQ TAB PO SCH (11:27)
[2018-01-13] MEDS: ROFLUMILAST 500 MCG TABLET PO SCH (11:27)
[2018-01-13] MEDS: predniSONE 10 MG TAB PO SCH (11:27)
[2018-01-13] MEDS: CITALOPRAM 10 MG TABLET PO SCH (11:28)
--- NOTE | 2018-03-28 18:20 | PN ---
Hospital Course: The patient was admitted to the hospital on 01/09 following progressive dyspnea. T he patient has a long history of rather severe COPD with acute exacerbations, sometimes associated wi th CHF. In any event, she was quite hypoxic. She was admitted, placed on IV antibiotics, IV steroid s, and her usual medications for her CAD and PVD. She was seen by security incident response engineer and hospitalist patricio ng her hospital stay. It took a number of days to bring her back to her baseline home. Once at [place], she started feeling better and she was decreased steroid doses until it was felt she could hand le the situation at home. She was discharged in fair condition on 01/13 to follow up with myself and security incident response engineer. Final Diagnoses: Acute exacerbation of chronic obstructive pulmonary disease, coronary artery diseas e, peripheral vascular disease by history, sleep apnea, congestive heart failure, chronic. HR/MODL Voice ID: [id number] Report ID: [id number]
== END 2018-01-13 12:51 | disposition home health service (06) | DRG 190 ==
LOC: ER 20:58 → ERHOLD 23:02 → 4TH 23:14
PROVIDERS: ADMIT Hospitalist; ATTEND Family Medicine
PROC: 5A09357 Assistance with Respiratory Ventilation, Less than 24 Consecutive Hours, Continuous Positive Airway Pressure (ICD-10-PCS; principal; 2018-01-09)
DX: J44.1 Chronic obstructive pulmonary disease with (acute) exacerbation (principal); J18.9 Pneumonia, unspecified organism; I50.32 Chronic diastolic (congestive) heart failure; R09.02 Hypoxemia; I10 Essential (primary) hypertension; E03.9 Hypothyroidism, unspecified; I73.9 Peripheral vascular disease, unspecified; E78.5 Hyperlipidemia, unspecified; G47.33 Obstructive sleep apnea (adult) (pediatric); F32.9 Major depressive disorder, single episode, unspecified; F17.200 Nicotine dependence, unspecified, uncomplicated
CPT/HCPCS: 36415; 71045; 71275; 80048; 80053; 80061; 80076; 82550; 82553; 82805; 83605; 83735; 83880; 84100; 84145; 84484; 85025; 85379; 85610; 85730; 87040; 87070; 87205; 93005; 94640; 94660; 94760; 96360; 96361; 97163; 99285; J0456; J0696; J1650; J2920; J3475; J7030; J7512; J7605; Q9967

== ENCOUNTER 2018-06-19 13:58 | Inpatient (IN) | payer OTHER ==
--- OUTSIDE RECORDS SUMMARY | 2018-06-19 14:01 | XMS REPORT | Clinical Summary ---
:1940 Author Organization [facility] Address [address] [place] [address] Care Team Providers Name Role Phone Yunior Montgomery MD Primary Care Provider Allergies Active Allergy Reactions Severity Noted Date Comments Codeine 01/10/2018 Other reaction(s): Unknown Perindopril Swelling High 01/25/2017 Throat swelled up. [...] tablet mouth nightly as needed for sleep. potassium chloride 04/13/2017 Active 20 mEq tablet extended release arformoterol Take 15 mcg by Active (BROVANA) 15 mcg/2 nebulization 2 mL solution for (two) times a nebulization day. albuterol 2.5 mg Inhale. Active /3 mL (0.083 %) solution for nebulization 3 mL, albuterol 5 mg/mL solution for nebulization 0.5 mL hydrALAZINE Take 1 tablet (25 90 tablet 3 09/16/2017 Active (APRESOLINE) 25 MG mg total) by tablet mouth daily as needed (sytolic bp >160). 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 tabletIndications: Chest pain, unspecified type LYRICA 50 mg Take 50 mg by 07/23/2016 11/24/19 Discontinued capsule mouth daily. 18 losartan (COZAAR) Take 1 tablet 90 tablet 3 08/19/2016 09/29/20 Discontinued 100 MG tablet (100 mg total) by 17 mouth daily. furosemide (LASIX) Take 1 tablet (20 90 tablet 3 08/19/2016 09/29/20 Discontinued 20 MG tablet mg total) by 17 mouth daily. clopidogrel Take 1 tablet (75 90 tablet 3 01/14/2017 01/27/20 Discontinued (PLAVIX) 75 mg mg total) by 18 tabletIndications: mouth daily. 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 08/19/2016 Bilateral carotid artery disease 08/19/2016 Encounters Date Type Specialty Care Team Description 06/08/2018 Telephone Cardiology Alfreda Gibbs MA Results 05/25/2018 Office Visit Cardiology Jewel Gomez MD Chest pain, unspecified type (Primary Dx); PAD (peripheral artery disease); Bilateral carotid artery disease 05/15/2018 Refill Cardiology Jewel Gomez MD Med Refill 01/26/2018 Refill Cardiology Jewel Gomez MD Med Refill 11/24/2017 Office Visit Cardiology Jewel Gomez MD 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 (Primary Dx); PAD (peripheral artery disease); Bilateral carotid artery disease 09/29/2017 Refill Cardiology Jewel Gomez MD Med Refill 09/16/2017 Refill Cardiology Alfreda Gibbs MA Med Refill after 06/18/2017 Family History Medical History Relation Name Comments [...] Taken Blood Pressure 179/77 11/24/2017 10:21 AM TELEPHONE 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 Pulse 73 11/24/2017 10:21 AM TELEPHONE INSTALLER Temperature - - Respiratory Rate - - Oxygen Saturation - - Inhaled Oxygen Concentration - - Weight 61.2 kg (135 lb) 11/24/2017 10:21 AM TELEPHONE INSTALLER Height 177.8 cm (5' 10") 11/24/2017 10:21 AM TELEPHONE INSTALLER Body Mass Index 19.37 11/24/2017 10:21 AM TELEPHONE INSTALLER Plan of Treatment Date Type Specialty Care Team Description 11/23/2018 Office Visit Cardiology Jewel Gomez MD [address] [place] [address] Health Maintenance Due Date Last Done Comments SHINGRIX VACCINE (#1) 1991 ZOSTER VACCINE 2001 PNEUMOCOCCAL POLYSACCHARIDE VACCINE AGE 65 AND OVER 2006 PNEUMOCOCCAL-13 2006 INFLUENZA VACCINE 05/12/2018 Procedures Procedure Name Priority Date/Time Associated Diagnosis Comments US CAROTID DUPLEX Routine 05/27/2018 2:18 PM Chest pain, Results for this BILATERAL CDT unspecified type procedure are in the results section. ECG 12-LEAD Routine 05/25/2018 9:14 AM Chest pain, Results for this CDT unspecified type procedure are in the results section. 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 after 06/18/2017 Results Pv carotid duplex (05/27/2018 2:18 PM) Narrative Performed At [facility] [place] [place] [facility] Carotid Artery Ultrasound Report Pat.Name:MICHELLE RUBI Pat.ID:[id number] St.Date: 05/27/2018 Refer.MD:JEWEL GOMEZ MD Exam Time: 2:16:00 PMStudy Type:Carotid DOBAge:1940,78YSex: FEMALE Sonogrphr: Dann Salvador RVTPat. Stat.:Outpatient CPT - 4: 86512 Echo Event ID:[id number] Order ID:[id number] Reason for Study:Yearly followup evaluation severe right internal carotid artery occlusive disease with angioplasty and stent placement. Knwon occlusiion of the left internal carotid artery. Race: SUMMARY: PHYSICAL ASSESSMENT BloodPulsesCarotid Pressure Carotid TemporalBruit Right 148/70 ++0 Left Mastectomy ++0 CAROTID ARTERY SCAN RIGHT:Scattered calcified on laminating soft plaque throughout the common carotid artery.Heavy calcification of the bulb with acus tical shadowing.Calcified plaque at the ostium of the external carotid artery with monophasic continuous Doppler signals in the external carotid artery.Proximal to mid internal carotid artery stent visualized with spontaneous arterial perfusion throughout the stent and internal carotid artery.Antegrade vertebral arterial flow. LEFT: Laminating soft plaque throughout the common carotid artery with calcified on soft plaque in the mid common carotid Sonolucent soft plaque extending from the bulb into the internal carotid artery with contraction of the internal carotid artery with absent Doppler signals throughout the length of the internal carotid artery. Soft plaque at the ostium of the external carotid artery with moderately elevated velocities.Antegrade vertebral arterial flow with moderately elevated velocites of 129cm/sec proximally. IMPRESSION: Post stent placement, patent right internal carotid artery with mild inflow stenosis in the bulb. Persistent occlusion of the left internal carotid artery. 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 Severe arterial occlusive disease involving the right external carotid artery and moderate occlusive disease involving the left external carotid artery. Carotid Findings:RightLeft Verteb.Flw AntegradeAntegrade Subclavian TriphasicTriphasic MEASUREMENTS: DOPPLER Left ICA Prox ICA Prox PSV 0 cm/Dylan Prox EDV 0 cm/s Left ICA Mid ICA Mid PSV0 cm/Dylan Mid EDV0 cm/s Left ICA Dist ICA Dist PSV 0 cm/Dylan Dist EDV 0 cm/s Right CCA Prox CCA Prox PSV41.5 cm/sCCA Prox EDV10.9 cm/s Left CCA Prox CCA Prox PSV27.2 cm/sCCA Prox EDV 0 cm/s Right CCA Mid CCA Mid PSV 34.4 cm/sCCA Mid EDV9.5 cm/s Left CCA Mid CCA Mid PSV 30.7 cm/sCCA Mid EDV0 cm/s Right CCA Dist CCA Dist PSV44.9 cm/sCCA Dist EDV17.5 cm/s Left CCA Dist CCA Dist PSV29.1 cm/sCCA Dist EDV 0 cm/s Right Bulb Bulb PSV83.2 cm/sBulb EDV22.4 cm/s Left Bulb Bulb PSV 0 cm/sBulb EDV 0 cm/s Right ICA Prox ICA Prox PSV98.4 cm/Dylan Prox EDV26.1 cm/s Right ICA Mid ICA Mid PSV 10.3 cm/Dylan Mid EDV 29.8 cm/s Right ICA Dist ICA Dist PSV86.5 cm/Dylan Dist EDV28.1 cm/s Right ECA Prox ECA Prox PSV62.2 cm/sECA Prox EDV16.1 cm/s Left ECA Prox ECA Prox PSV 207 cm/sECA Prox EDV21.1 cm/s Right Vertebral Vertebral PSV 97.7 cm/sVertebral EDV 16.3 cm/s Left Vertebral Vertebral HBT861 cm/sVertebral EDV 55.6 cm/s Right SCA Prox SCA Prox PSV75 cm/s Left SCA Prox SCA Prox PSV 122 cm/s Right ICA/CCA Ratio ICA/CCA PSV 2.86 Signed 06/02/2018 10:58 AM Jewel Gomez MD Procedure Note Interface, Radiology Results In - 06/02/2018 10:58 AM CDT [facility] Carotid Artery Ultrasound Report Pat.Name: MICHELLE RUBI Pat.ID: [id number] .Date: 05/27/2018 Refer.MD: JEWEL GOMEZ MD Exam Time: 2:16:00 PM Study Type:Carotid Age: 5 1940,78Y Sex: FEMALE Sonogrphr: Dann Salvador RVT Pat. Stat.:Outpatient CPT - 4: 17894 Echo Event ID:[id number] Order ID: [id number] Reason for Study:Yearly followup evaluation severe right internal carotid artery occlusive disease with angioplasty and stent placement. Knwon occlusiion of the left internal carotid artery. Race: SUMMARY: PHYSICAL ASSESSMENT Blood Pulses Carotid Pressure Carotid Temporal Bruit Right 148/70 + + 0 Left Mastectomy + + 0 CAROTID ARTERY SCAN RIGHT: Scattered calcified on laminating soft plaque throughout the common carotid artery. Heavy calcification of the bulb with acus tical shadowing. Calcified plaque at the ostium of the external carotid artery with monophasic continuous Doppler signals in the external carotid artery. Proximal to mid internal carotid artery stent visualized with spontaneous arterial perfusion throughout the stent and internal carotid artery. Antegrade vertebral arterial flow. LEFT: Laminating soft plaque throughout the common carotid artery with calcified on soft plaque in the mid common carotid Sonolucent soft plaque extending from the bulb into the internal carotid artery with contraction of the internal carotid artery with absent Doppler signals throughout the length of the internal carotid artery. Soft plaque at the ostium of the external carotid artery with moderately elevated velocities. Antegrade vertebral arterial flow with moderately elevated velocites of 129cm/sec proximally. IMPRESSION: Post stent placement, patent right internal carotid artery with mild inflow stenosis in the bulb. Persistent occlusion of the left internal carotid artery. 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 Severe arterial occlusive disease involving the right external carotid artery and moderate occlusive disease involving the left external carotid artery. Carotid Findings: Right Left Verteb.Flw Antegrade Antegrade Subclavian Triphasic Triphasic MEASUREMENTS: DOPPLER Left ICA Prox ICA Prox PSV 0 cm/s ICA Prox EDV 0 cm/s Left ICA Mid ICA Mid PSV 0 cm/s ICA Mid EDV 0 cm/s Left ICA Dist ICA Dist PSV 0 cm/s ICA Dist EDV 0 cm/s Right CCA Prox CCA Prox PSV 41.5 cm/s CCA Prox EDV 10.9 cm/s Left CCA Prox CCA Prox PSV 27.2 cm/s CCA Prox EDV 0 cm/s Right CCA Mid CCA Mid PSV 34.4 cm/s CCA Mid EDV 9.5 cm/s Left CCA Mid CCA Mid PSV 30.7 cm/s CCA Mid EDV 0 cm/s Right CCA Dist CCA Dist PSV 44.9 cm/s CCA Dist EDV 17.5 cm/s Left CCA Dist CCA Dist PSV 29.1 cm/s CCA Dist EDV 0 cm/s Right Bulb Bulb PSV 83.2 cm/s Bulb EDV 22.4 cm/s Left Bulb Bulb PSV 0 cm/s Bulb EDV 0 cm/s Right ICA Prox ICA Prox PSV 98.4 cm/s ICA Prox EDV 26.1 cm/s Right ICA Mid ICA Mid PSV 10.3 cm/s ICA Mid EDV 29.8 cm/s Right ICA Dist ICA Dist PSV 86.5 cm/s ICA Dist EDV 28.1 cm/s Right ECA Prox ECA Prox PSV 62.2 cm/s ECA Prox EDV 16.1 cm/s Left ECA Prox ECA Prox PSV 207 cm/s ECA Prox EDV 21.1 cm/s Right Vertebral Vertebral PSV 97.7 cm/s Vertebral EDV 16.3 cm/s Left Vertebral Vertebral PSV 129 cm/s Vertebral EDV 55.6 cm/s Right SCA Prox SCA Prox PSV 75 cm/s Left SCA Prox SCA Prox PSV 122 cm/s Right ICA/CCA Ratio ICA/CCA PSV 2.86 Signed 06/02/2018 10:58 AM Jewel Gomez MD Performing Organization Address [facility] Phone Number [facility] [address] [place] [address] ECG 12 lead (05/25/2018 9:14 AM)Only the most recent of2 resultswithin the time period is included. Ventricular rate 68 [facility] Atrial rate 68 [facility] MI interval 144 [facility] QRSD interval 76 [facility] QT interval 412 [facility] QTC interval 438 [facility] P axis 1 60 [facility] QRS axis 1 69 [facility] T wave axis 82 [facility] EKG impression Normal sinus rhythm-Septal infarct , age undetermined-ST & T wave abnormality, consider anterolateral ischemia-Abnormal ECG-In automated comparison with ECG of 24-NOV-2017 10:12,-T wave inversion mo [facility] re evident in Anterior leads- Performing Organization Address [facility] Phone Number [facility] [address] [place] [address] after 06/18/2017 Insurance Payer Benefit Plan / Group Subscriber ID Type Phone Address AETNA MEDICARE AETNA MEDICARE HMO/PPO [facility] xxxxxxxx HMO y [phone] [address]
--- OUTSIDE RECORDS SUMMARY | 2018-06-19 14:01 | XMS REPORT ---
:1940 [facility] Address [address] [place] [address] Dr. Marina [address] [place] [address] Care Team Providers Name Role Phone IFRAH WARREN Unavailable Unavailable Problems This patient has no known problems. Allergies, Adverse Reactions, Alerts This patient has no known allergies or adverse reactions. Medications This patient has no known medications. Results Test Description Test Time Test Comments Text Results Atomic Results Result Comments HEMOGLOBIN A1C 2017-01-25 09:13:00 Test Item Value Reference Range Comments HEMOGLOBIN A1C (BEAKER) (test loll=581) 5.6 % 4.3-6.1 VITAMIN [id number] 07:58:00 Test Item Value Reference Range Comments VITAMIN B12 (BEAKER) (test kqyi=746) 317 pg/mL 213-816 TSH/FREE T4 IF [id number] 07:51:00 Test Item Value Reference Range Comments THYROID STIMULATING HORMONE (BEAKER) (test 1.65 uIU/mL 0.35-4.94 djkc=422) [id number] 07:37:00 Test Item Value Reference Range Comments MAGNESIUM (BEAKER) (test aqsn=659) 2.0 mg/dL 1.6-2.6 BASIC METABOLIC [id number] 07:37:00 Test Item Value Reference Range Comments SODIUM (BEAKER) (test 138 meq/L 136-145 iaqr=118) POTASSIUM (BEAKER) (test 4.8 meq/L 3.5-5.1 ghqn=224) CHLORIDE (BEAKER) (test 103 meq/L 98-107 wihp=435) CO2 (BEAKER) (test 25 meq/L 22-29 uxlr=184) BLOOD UREA NITROGEN 21 mg/dL 7-21 (BEAKER) (test srun=309) CREATININE (BEAKER) (test 0.86 mg/dL 0.57-1.25 axet=251) GLUCOSE RANDOM (BEAKER) 68 mg/dL 70-105 (test yjim=484) CALCIUM (BEAKER) (test 8.4 mg/dL 8.4-10.2 mzao=669) EGFR (BEAKER) (test 64 mL/min/1.73 sq m ESTIMATED GFR IS NOT yufk=8859) ACCURATE CREATININE CLEARANCE IN PREDICTING GLOMERULAR FILTRATION RATE. ESTIMATED GFR IS NOT APPLICABLE FOR DIALYSIS PATIENTS. LIPID [id number] 07:37:00 Test Item Value Reference Range Comments TRIGLYCERIDES (BEAKER) (test sgaw=368) 93 mg/dL CHOLESTEROL (BEAKER) (test ugmu=823) 146 mg/dL HDL CHOLESTEROL (BEAKER) (test tqth=610) 56 mg/dL LDL CHOLESTEROL CALCULATED (BEAKER) (test 71 mg/dL frsp=742) Triglyceride Reference Range: Low Risk <150 Borderline 150- 199 High Risk 200-499 Very High Risk >=500Cholesterol Reference Range: Low Risk <200 Borderline 200-239 High Risk > 240HDL Cholesterol Reference Range: Low Risk >=60 High Risk <40LDL Cholesterol Reference Range: Optimal <100 Near Optimal 100-129 Borderline 130-159 High 160-189 Very High >=190HEPATIC FUNCTION [id number] 07:37:00 Test Item Value Reference Range Comments TOTAL PROTEIN (BEAKER) (test frxg=877) 6.1 gm/dL 6.0-8.3 ALBUMIN (BEAKER) (test lnyb=2743) 3.8 g/dL 3.5-5.0 BILIRUBIN TOTAL (BEAKER) (test tugf=278) 0.3 mg/dL 0.2-1.2 BILIRUBIN DIRECT (BEAKER) (test sitc=879) 0.1 mg/dL 0.1-0.5 ALKALINE PHOSPHATASE (BEAKER) (test gjci=469) 56 U/L 40-150 AST (SGOT) (BEAKER) (test dwxj=309) 17 U/L 5-34 ALT (SGPT) (BEAKER) (test czph=972) 8 U/L 6-55 CBC W/PLT COUNT & AUTO [id number] 07:33:00 Test Item Value Reference Range Comments WHITE BLOOD CELL COUNT (BEAKER) (test mufk=756) 5.1 K/ L 4.0-10.0 RED BLOOD CELL COUNT (BEAKER) (test baqx=229) 4.01 M/ L 4.00-5.00 HEMOGLOBIN (BEAKER) (test fjlv=148) 12.8 GM/DL 12.0-15.0 HEMATOCRIT (BEAKER) (test qtnx=898) 39.7 % 36.0-45.0 MEAN CORPUSCULAR VOLUME (BEAKER) (test suwg=665) 98.9 fL 82.0-99.0 MEAN CORPUSCULAR HEMOGLOBIN (BEAKER) (test 32.0 pg 27.0-33.0 dthh=173) MEAN CORPUSCULAR HEMOGLOBIN CONC (BEAKER) (test 32.4 GM/DL 32.0-36.0 blnd=003) RED CELL DISTRIBUTION WIDTH (BEAKER) (test 13.6 % 10.3-14.2 kemy=062) PLATELET COUNT (BEAKER) (test futi=569) 195 K/CU MM 150-430 MEAN PLATELET VOLUME (BEAKER) (test nkhv=665) 7.4 fL 6.5-10.5 NUCLEATED RED BLOOD CELLS (BEAKER) (test 0 /100 WBC 0-0 rsid=832) NEUTROPHILS RELATIVE PERCENT (BEAKER) (test 46 % dokn=548) LYMPHOCYTES RELATIVE PERCENT (BEAKER) (test 41 % omdz=797) MONOCYTES RELATIVE PERCENT (BEAKER) (test 11 % olfn=794) EOSINOPHILS RELATIVE PERCENT (BEAKER) (test 1 % hgmb=780) BASOPHILS RELATIVE PERCENT (BEAKER) (test 1 % gzsz=828) NEUTROPHILS ABSOLUTE COUNT (BEAKER) (test 2.34 K/ L 1.80-8.00 ihxc=970) LYMPHOCYTES ABSOLUTE COUNT (BEAKER) (test 2.10 K/ L 1.48-4.50 wkgc=146) MONOCYTES ABSOLUTE COUNT (BEAKER) (test 0.58 K/ L 0.00-1.30 bylv=846) EOSINOPHILS ABSOLUTE COUNT (BEAKER) (test 0.03 K/ L 0.00-0.50 hwjt=670) BASOPHILS ABSOLUTE COUNT (BEAKER) (test 0.06 K/ L 0.00-0.20 sics=223) 0.00PT/[id number] 07:04:00 Test Item Value Reference Range Comments PROTIME (BEAKER) (test fnce=140) 12.8 seconds 11.7-14.7 INR (BEAKER) (test berv=555) 1.0 <=5.9 PARTIAL THROMBOPLASTIN TIME (BEAKER) (test 26.8 seconds 22.5-36.0 xuns=790) RECOMMENDED COUMADIN/WARFARIN INR THERAPY RANGESSTANDARD DOSE: 2.0 - 3.0 Includes: PROPHYLAXIS forvenous thrombosis, systemic embolization; TREATMENT for venous thrombosis and/or pulmonary embolus.HIGH RISK: Target INR is 2.5-3.5 for patients with mechanical heart valves.PROTHROMBIN TIME/[id number] 07:03: 00 Test Item Value Reference Range Comments PROTIME (BEAKER) (test bycu=928) 12.8 seconds 11.7-14.7 INR (BEAKER) (test ctym=250) 1.0 <=5.9 RECOMMENDED COUMADIN/WARFARIN INR THERAPY RANGESSTANDARD DOSE: 2.0 - 3.0 Includes: PROPHYLAXIS forvenous thrombosis, systemic embolization; TREATMENT for venous thrombosis and/or pulmonary embolus.HIGH RISK: Target INR is 2.5-3.5 for patients with mechanical heart valves.
--- OUTSIDE RECORDS SUMMARY | 2018-06-19 14:01 | XMS REPORT | Clinical Summary ---
:[address] [facility] Address [address] [place] [address] Phone Care Team Providers Name Role Phone Unavailable Primary Care Provider Unavailable Allergies Active Allergy Reactions Severity Noted Date Comments Perindopril Swelling High 01/25/2017 Throat swelled up. Current Medications Prescription Sig. Disp. Refills Start Date End Date Status metoprolol Take 100 mg by Active (LOPRESSOR) 100 MG mouth daily. tabletIndications: hypertension losartan (COZAAR) 100 Take 100 mg by Active MG tabletIndications: mouth daily. hypertension levothyroxine Take 100 mcg by Active (SYNTHROID, mouth Every LEVOTHROID) 100 MCG morning on an tabletIndications: empty stomach. hypothyroidism rosuvastatin Take 10 mg by Active (CRESTOR) 10 MG mouth daily. tabletIndications: hyperlipidemia citalopram (CELEXA) Take 40 mg by Active 40 MG mouth daily. tabletIndications: Anxiety with Depression clopidogrel (PLAVIX) Take 75 mg by Active 75 mg tablet mouth daily. aspirin 81 MG EC Take 81 mg by Active tablet mouth daily. furosemide (LASIX) 20 Take 20 mg by Active MG tablet mouth daily. anastrozole Take 1 mg by Active (ARIMIDEX) 1 mg mouth daily. tablet alendronate (FOSAMAX) Take 70 mg by Active 70 MG mouth every 7 tabletIndications: days Take in Post-Menopausal the morning Osteoporosis with a full glass of water, on an empty stomach, and do not take anything else by mouth or lie down for the next 30 min. . pregabalin (LYRICA) Take 50 mg by Active 50 MG capsule mouth daily with dinner. traMADol (ULTRAM) 50 Take 50 mg by Active mg tabletIndications: mouth as needed Pain for Pain. zolpidem (AMBIEN) 10 Take 10 mg by Active mg tablet mouth every night as needed for Insomnia. cloNIDine HCl Take 0.1 mg by Active (CATAPRES) 0.1 MG mouth as tablet needed. tiotropium (SPIRIVA) Inhale 1 30 capsule 0 01/26/2017 01/26/2018 18 mcg inhalation capsule (18 mcg capsule total) by mouth via inhaler daily. albuterol HFA Inhale 1 puff 1 Inhaler 0 01/26/2017 01/26/2018 (VENTOLIN HFA) 90 by mouth via mcg/actuation inhaler inhaler every 6 (six) hours as needed for Wheezing. Active Problems Problem Noted Date Syncope and collapse 01/25/2017 Family History Medical History Relation Name Comments [...] Not on file Last Filed Vital Signs Not on file Plan of Treatment Not on file Results Not on fileafter 06/18/2017
[2018-06-19] MEDS ORDERED: LEVALBUTEROL 1.25 MG/3 ML NEB ONE (14:17)
[2018-06-19 14:34] LABS: Arterial Blood Carboxyhemoglob 3.8 % (0-1.5); Blood Gas Oxyhemoglobin 94.2 % (94-97)
[2018-06-19 15:09] LABS: CKMB Creatine Kinase MB 3.2 ng/mL (0.3-3.6); Potassium 4.9 mmol/L (3.5-5.1); Troponin (Emerg Dept Use Only) 0.02 ng/mL (0.0-0.045)
--- NOTE | 2018-06-19 15:34 | RAD REPORT ---
EXAM DESCRIPTION: RAD - Chest Single View - 06/19/2018 2:52 pm CLINICAL HISTORY: Cough;Dyspnea Chest pain. COMPARISON: Chest Pa And Lat (2 Views) dated 06/02/2018; Chest Pa And Lat (2 Views) dated 01/20/2018; Chest Single View dated 01/09/2018; Chest Single View dated 04/25/2017 FINDINGS: Portable technique limits examination quality. The lungs are emphysematous but clear. The heart is normal in size. No displaced fractures.Aortic ath erosclerosis. IMPRESSION: Prominent COPD.
[2018-06-19 15:43] LABS: Absolute Lymphocytes (CBC) 0.6 K/uL (0.7-4.9); Absolute Monocytes 0.3 K/uL (0.1-1.3); Absolute Neutrophil 9.3 K/uL (1.8-8.0); Basophils % 0.2 % (0-1.3); Eosinophils % 0.1 % (0-4.4); Hematocrit 40.2 % (36.0-45.0); Lymphocytes % 6.2 % (15.3-44.8); MCH 24.7 pg (27.0-35.0); MCV 80.8 fL (80-100); MPV 8.5 fL (7.6-11.3); Monocytes % 2.6 % (3.3-12.3); RBC Red Blood Cell Count 4.98 M/uL (3.86-4.86)
[2018-06-19 16:08] LABS: Platelet Estimate ADEQ; Urine White Blood Cell Casts OK
[2018-06-19 16:09] LABS: Blood Morphology Comment NOT SEEN (NOT SEEN)
[2018-06-19 16:14] LABS: Arterial Blood Carboxyhemoglob 3.5 % (0-1.5); Blood Gas Oxyhemoglobin 88.1 % (94-97); Blood O2 Saturation 92.4 % (92-98.5)
[2018-06-19] MEDS ORDERED: LEVALBUTEROL 0.63 MG/3 ML NEB ONE (16:43)
[2018-06-19] MEDS ORDERED: IPRATROPIUM BROM 0.5MG/2.5ML ONE (16:43)
[2018-06-19] MEDS ORDERED: ONDANSETRON 4 MG/2 ML VIAL IV PRN (17:27)
[2018-06-19] MEDS ORDERED: ALBUTEROL 2.5 MG/3 ML NEB SOL NEB PRN (17:27)
[2018-06-19] MEDS ORDERED: IPRATROPIUM BROM 0.5MG/2.5ML NEB PRN (17:27)
[2018-06-19] MEDS ORDERED: SODIUM CHLORIDE 0.9% 10ML INJ IV PRN (17:27)
[2018-06-19] MEDS ORDERED: ACETAMINOPHEN 650MG/RECT SUPP PR PRN (17:27)
[2018-06-19] MEDS ORDERED: ACETAMINOPHEN 500 MG TAB PO PRN (17:27)
[2018-06-19] MEDS ORDERED: PROPOFOL 1,000 MG/100 ML VIAL IV ONE (17:29)
[2018-06-19] MEDS ORDERED: RSI MEDICATION KIT IV ONE (17:29)
--- NOTE | 2018-06-19 17:51 | P.HP ---
Certification for Inpatient Patient admitted to: Inpatient With expected LOS: >2 Midnights Patient will require the following post-hospital care: Other Practitioner: I am a practitioner with admitting privileges, knowledge of patient current condition, hospital course, and medical plan of care. Services: Services provided to patient in accordance with Admission requirements found in Title 42 Section 412.3 of the Code of Federal Regulations Patient History Date of Service: 06/19/18 Primary Care Provider: Dr. Montgomery(Hospitalist covering); Pulm-Dr. Charles; Card-Dr. Urias Reason for admission: AMS History of Present Illness: 78 yo CF presented to the ER by EMS for altered mental status. Most of the information came from the ER and family. Patient was found unresponsive. She was ashy and having difficulty breathing. She has Severe COPD w Home oxygen, CAD, PVD, HTN, CRD and Depression. Her family checked her O2 and found to be around 35%. EMS was called. When they arrived her O2 was 52%. She was given IV steroids and breathing treatments. She was started on BIPAP. No intubation was needed at that time. In the ER she continued with BIPAP. She remained confused. She was found to be acidotic with ABG showing Ph 7.1, PCO2 108. NA 137, K-4.9, Co2-39, Bun-23, Creatinine-1.4, GFR-36, BS-127, Procal-Nml, CK-66, CKMB-3.2, Trop-0.02, CXR showed COPD changes. When I saw the patient she was confused. I discussed with family and ER and a decision was to intubate her due to her abnormal condition. Patient will go to ICU. Family reports that she continues to smoke. She drinks alcohol regularly. reports that she has been sleeping a lot. She was given a steroid shot and antibiotics recently by her PCP and Pulmonary. Allergies codeine Allergy (Verified 01/10/18 02:21) Unknown perindopril erbumine [From Aceon] Allergy (Verified 01/10/18 02:21) UNKNOWN Home medications list reviewed: Yes Home Medications: Citalopram [Celexa*] 40 mg PO DAILY 02/26/14 Furosemide [Lasix*] 20 mg PO DAILY 02/26/14 Levothyroxine [Synthroid*] 100 mcg PO [id number] 02/26/14 Metoprolol Succinate [Toprol Xl*] 25 mg PO [id number] 02/26/14 Pregabalin [Lyrica] 50 mg PO BEDTIME 02/26/14 Tiotropium [place] [Spiriva] 2 puff IH DAILY 02/26/14 Zolpidem Tartrate [Ambien*] 10 mg PO BEDTIME PRN PRN #0 tablet 03/02/14 Alendronate Sodium 70 mg PO EVERY 7TH DAY 01/12/17 Clopidogrel Bisulfate [Plavix*] 75 mg PO DAILY 01/12/17 Rosuvastatin Calcium [Crestor] 10 mg PO DAILY 01/12/17 Tramadol HCl [Ultram] 50 mg PO Q6HP PRN 01/12/17 Losartan Potassium 100 mg PO DAILY 02/16/17 Roflumilast [Daliresp*] 500 mcg PO DAILY 02/16/17 Vit D3/Folic Acid/B2/B6/B12 [Folgard Tablet] 1 each PO DAILY 02/16/17 Hydralazine [Apresoline*] 25 mg PO TID PRN #60 tab 03/15/17 Acetaminophen [Pain Relief 8Hr] 1 tab PO DAILY 01/10/18 Albuterol Sulfate [Ventolin Hfa] 2 puff IH Q4H 01/10/18 Arformoterol Tartrate [Brovana] 2 ml IH DAILY 01/10/18 Benzonatate [Tessalon Perle*] 1 cap PO DAILY 01/10/18 Tiotropium [place] [Spiriva Respimat] 2 puff IH DAILY 01/10/18 predniSONE [Prednisone*] 10 mg PO DAILY 01/10/18 levoFLOXacin [Levaquin*] 750 mg PO DAILY #7 tab 01/12/18 - Past Medical/Surgical History Diabetic: No -: History of breast cancer -: History of throat cancer -: Hypertension -: Hypothyroidism -: COPD, steroid and oxygen-dependent -: Peripheral vascular disease -: Carotid arterial disease -: CHF -: Hyperlipidemia -: Obstructive sleep apnea -: Neuropathy -: Tobacco abuse -: Hysterectomy -: Hemorrhoidectomy -: Radiation to the vocal cords -: Stents to the lower extremity and carotid -: Bilateral eye surgery -: Left-sided mastectomy -: chemotherapy Psychosocial/ Personal History: Patient is . She has children. She does not work. - Family History Father -: Heart disease Mother -: Cancer Sister -: Cancer Notes: Brother -: Heart disease Notes: - Social History Smoking Status: Heavy Tobacco smoker (>10 cigarettes/day) Alcohol use: Yes CD- Drugs: No Caffeine use: Yes Place of Residence: Home Review of Systems General: Weakness, As per HPI Eyes: Unremarkable ENT: Unremarkable Respiratory: Shortness of Breath, SOB with Excertion, As per HPI Cardiovascular: As per HPI Gastrointestinal: Unremarkable Genitourinary: Unremarkable Musculoskeletal: Unremarkable Integumentary: Unremarkable Neurological: As per HPI Lymphatics: Unremarkable Physical Examination - Physical Exam General: Acute distress, Confused, Other (patient to be intubated. ) HEENT: Atraumatic, Normocephalic, Other (dry mucous membranes) Neck: Supple Respiratory: Diminished (bilateral), Expiratory wheezes Cardiovascular: Normal pulses, Regular rate/rhythm Gastrointestinal: Normal bowel sounds, Soft and benign, Non-distended, No tenderness, No masses, No rebound, No guarding Musculoskeletal: No erythema, No tenderness, No warmth Integumentary: No tenderness/swelling, No erythema, No warmth, No cyanosis Neurological: Normal strength at 5/5 x4 extr, Normal tone, Abnormal affect ( confused. ) - Studies Laboratory Data (last 24 hrs) 06/19/18 14:35: WBC 10.2, Hgb 12.3, Hct 40.2, Plt Count 279 06/19/18 14:35: Sodium 137, Potassium 4.9, BUN 23 H, Creatinine 1.40 H, Glucose 127 H Assessment and Plan - Plan Impression: Acute encephalopathy likely due to Acute on chronic respiratory failure with hypercapnea and hypoxia along acute COPD exacerbation with history of Severe COPD with home oxygen. Resp. Acidosis Acute on chronic renal failure High risk for aspiration pneumonia HTN CAD PVD Tobacco abuse Alcohol abuse History of throat cancer/breast cancer Plan: I am covering for Dr. Montgomery this weekend. She is a patient of [facility]. Patient will be intubated and sedated in the ER. Once stable will check Head CT as she came in with altered mental status. Blood, urine, sputum cultures will be obtained. Will start Vancomycin and Merrem. Will start IV fluids with Bicarb. Patient will go to ICU for monitoring. Cardiology, Pulmonary and Nephrology consulted. Will obtain ECHO and renal US. Will continue with COPD treatment. Will wean off ventilator. IV thiamine ordered. IV hydralazine ordered for elevated BP. Will monitor serial lab and cxr. Case and treatment discussed with family. They understand her condition is critical. Advanced directives addressed. They want everything done possible to improve her condition. Will continue to inform them. [facility] patient may require LTAC. - Advance Directives Does patient have a Living Will: Yes Does patient have a Durable POA for Healthcare: Yes - Code Status/Comfort Care Code Status Assessed: Yes (Full code) Time Spent Managing Pts Care (In Minutes): 55
[2018-06-19] MEDS ORDERED: LORazepam 2 MG/ML VIAL ONE ×2 (17:52→18:44)
[2018-06-19] MEDS ORDERED: NA CHLORIDE 0.9% 1,000 ML ONE ×2 (18:00→18:56)
--- NOTE | 2018-06-19 18:12 | ER ---
Nurse's Notes [facility] Name: Michelle Benson Age: 78 yrs Sex: Female : 1940 Arrival Date: 06/19/2018 Time: 14:04 Bed 3 Private MD: Diagnosis: Respiratory failure, unspecified with hypercapnia;Altered mental status, unspecified Presentation: 06/19 14:11 Presenting complaint: EMS states: Family reports that pt has not been feeling well and ph has been in bed for 3 days, family checked on her today and found pt lethargic and ashen in color, Spo2 35%, placed pt on C-Pap w/ concentrator 5% and pt had improved to 55% upon EMS arrival, pt given 125 solu-medrol and 3:1 neb tx, pt improved to 100% on NRB mask now awake but remains drowsy, A\T\O x 4. Transition of care: patient was not received from another setting of care. Onset of symptoms was June 19, 2018. Risk Assessment: Do you want to hurt yourself or someone else? Patient reports no desire to harm self or others. Initial Sepsis Screen: Does the patient meet any 2 criteria? No. Patient's initial sepsis screen is negative. Care prior to arrival: IV initiated. 22 GA, in the right forearm, Oxygen administered. 14:11 Method Of Arrival: EMS: [facility] ph 14:11 Acuity: RHIANNON 2 ph 20:54 Initial Sepsis Screen: Does the patient have a suspected source of infection? No. tl2 Patient's initial sepsis screen is negative. Historical: - Allergies: 14:19 Codeine; ph 14:19 perindopril erbumine; ph - Home Meds: 15:15 alendronate 70 mg Oral tab 1 tab 1 x per week on Sat [Active]; Ambien 10 mg Oral tab 1 ph tab once daily [Active]; anastrozole 1 mg Oral tab 1 tab once daily [Active]; citalopram 40 mg tab 1 tab once daily [Active]; clopidogrel 75 mg Oral tab 1 tab once daily [Active]; levothyroxine 100 mcg tab 1 tab once daily [Active]; Crestor 10 mg Oral tab 1 tab once daily [Active]; metoprolol tartrate 25 mg Oral tab 1 tab 2 times per day [Active]; losartan 100 mg Oral tab 1 tab once daily [Active]; hydralazine 25 mg Oral tab as needed [Active]; Lyrica 50 mg Oral 1 cap daily [Active]; furosemide 20 mg Oral tab 1 tab once daily [Active]; prednisone 10 mg Oral tab 1 tab 2 times per day [Active]; ipratropium-albuterol 0.5 mg-3 mg(2.5 mg base)/3 mL Inhl nebu 4 times per day [Active]; Brovana 15 mcg/2 mL inhalation nebu 2 mL 2 times per day [Active]; potassium chloride 20 mEq Oral TbER 1 tab [Active]; Daliresp 500 mcg oral tab 1 tab once daily [Active]; ProAir HFA 90 mcg/actuation inhalation HFAA 2 puffs every 4 hours [Active]; tramadol 50 mg Oral tab 1 tab as needed [Active]; Vitamin D Oral 2000 unit daily [Active]; Spiriva Respimat 2.5 mcg/actuation inhalation mist 2 puffs once daily [Active]; Oxygen \T\ 2L PRN and at night [Active]; acetaminophen 325 mg Oral tab 2 tabs as needed [Active]; docusate sodium 100 mg Oral cap 1 cap once daily [Active]; - PMHx: 15:15 CAD; cancer- breast L side, throat, L ear; CHEMO; COPD; CHF; Depression; GERD; heart ph arrythmia unknown; 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 - Social history:: Smoking status: Patient uses tobacco products, approx 5 cigarettes per day. - Ebola Screening: : No symptoms or risks identified at this time. - Family history:: not pertinent. - Hospitalizations: : No recent hospitalization is reported. Screenin:51 Abuse screen: Denies threats or abuse. Denies injuries from another. Nutritional ph screening: No deficits noted. Tuberculosis screening: No symptoms or risk factors identified. Fall Risk No fall in past 12 months (0 pts). No secondary diagnosis (0 pts). IV access (20 points). Ambulatory Aid- None/Bed Rest/Nurse Assist (0 pts). Gait- Weak (10 pts.). Mental Status- Oriented to own ability (0 pts). Total Gomez Fall Scale indicates High Risk Score (45 or more points). Fall prevention measures have been instituted. Side Rails Up X 2 Placed Close to Nursing Station Frequent Obs/Assessments Occuring Family Present and informed to notify staff if the need to leave the bedside As available patient and family educated on Fall Prevention Program and Strategies. Assessment: 14:15 General: Appears distressed, Behavior is cooperative. Pain: Denies pain. Neuro: Level hb of Consciousness is obeys commands, lethargic, Oriented to person, place, situation. Cardiovascular: Heart tones S1 S2 present Capillary refill < 3 seconds Patient's skin is warm and dry. Respiratory: Airway is patent Trachea midline Respiratory effort is even, unlabored, Respiratory pattern is regular, symmetrical, Breath sounds are coarse bilaterally. Breath sounds with wheezes. GI: No signs and/or symptoms were reported involving the gastrointestinal system. : No signs and/or symptoms were reported regarding the genitourinary system. EENT: No signs and/or symptoms were reported regarding the EENT system. Derm: Skin is intact, is healthy with good turgor. Musculoskeletal: No signs and/or symptoms reported regarding the musculoskeletal system. 15:00 Reassessment: No changes from previously documented assessment. Patient and/or family hb updated on plan of care and expected duration. Pain level reassessed. BIPAP continues. Family remains at bedside. 16:00 Reassessment: No changes from previously documented assessment. Patient and/or family hb updated on plan of care and expected duration. Pain level reassessed. 16:10 Reassessment: RT at bedside for ABG. hb 16:23 Reassessment: Dr. Rowe at bedside. hb 16:57 Reassessment: Dr Patton at bedside. ph 17:18 Reassessment: Dr. Rowe and RT at bedside for intubation. hb 17:49 Reassessment: Pt transported to CT with nurse, Tech, and RT. hb 18:12 Reassessment: Pt returned from CT. hb 18:24 Reassessment: Vent: AC 20, TV 500, PEEP 5, FiO2 40%. hb 18:54 Reassessment: BP 67/49, Dr. Rowe notified, NS 500ml bolus administered as ordered. hb 19:28 Reassessment: Will call report to ICU after shift change. Continuing to monitor BP, if tl2 MAP stays below 65 will consider vasopressor. General: Appears in no apparent distress. intubated. Behavior is sedated. Neuro: Level of Consciousness is unresponsive. Cardiovascular: Heart tones S1 S2 present Capillary refill < 3 seconds Patient's skin is warm and dry. Respiratory: Airway via oral intubation Trachea midline Respiratory pattern is regular, symmetrical, Breath sounds are coarse bilaterally. GI: No signs and/or symptoms were reported involving the gastrointestinal system. : Mccain in place to gravity drainage Urine is clear. Derm: Skin is pink, warm \T\ dry. 20:52 Reassessment: Pt stable for transfer to unit. tl2 Vital Signs: 14:18 BP 180 / 83; Pulse 89; Resp 22; Temp 98.8; Pulse Ox 98% on 100% Nebulizer Mask; Weight ph 72.57 kg; Height 5 ft. 5 in. (165.10 cm); 14:35 Pulse Ox 84% on 4 lpm NC; hb 14:58 BP 183 / 80; Pulse 87; Resp 17; Pulse Ox 94% on 93% BiPAP; hb 16:00 BP 158 / 64; Pulse 87; Resp 24; Pulse Ox 97% on 45% BiPAP; hb 17:00 BP 172 / 73; Pulse 86; Resp 25; Pulse Ox 100% on 45% BiPAP; hb 18:00 BP 98 / 68; Pulse 88; Resp 20; Pulse Ox 100% on 15 lpm ETT ambu; hb 18:30 BP 120 / 50; Pulse 80; Resp 20; Pulse Ox 100% on ETT vent; hb 18:45 BP 67 / 49; Pulse 73; Resp 20; Pulse Ox 100% on 40% FiO2 ETT vent; hb 19:00 BP 87 / 54; Pulse 74; Resp 20; Pulse Ox 100% on 40% FiO2 ETT vent; tl2 19:18 BP 108 / 52; Pulse 71; Resp 20; Temp 97.5(C); Pulse Ox 100% on 40% FiO2 ETT vent; tl2 19:50 BP 100 / 52; Pulse 72; Resp 20; Pulse Ox 100% on 40% FiO2 ETT vent; tl2 14:18 Body Mass Index 26.63 (72.57 kg, 165.10 cm) ph 14:58 BIPAP 14/6, R 18, FiO2 45% hb ED Course: 14:04 Patient arrived in ED. iw 14:04 Jorge Rowe MD is Attending Physician. rn 14:18 Triage completed. ph 14:51 Arm band placed on. ph 14:52 XRAY CXR (1 view) In Process Unspecified. EDMS 16:05 Maintain EMS IV. Dressing intact. Good blood return noted. Site clean \T\ dry. Gauge \T\ hb site: 20g RIGHT HAND. 16:57 Patient has correct armband on for positive identification. Placed in gown. Bed in low ph position. Side rails up X2. monitoring manager on. Pulse ox on. NIBP on. Warm blanket given. Pillow given. 17:30 Assisted provider with intubation using 7.5 mm ETT via oral route. ET tube secured at iw 23cm at the gums. Set up intubation tray. Intubated by Jorge Rowe MD Placement verified by CO2 detector w/ + color change, auscultating bilateral breath sounds, Patient tolerated well. 17:53 Radiology exam delayed due to Dr. is putting in a Central line. Informed [employer] vr that Ct needed the pt was the dr was done putting in the line. 17:55 NGT: inserted 16 Fr. via right nare. verified placement of air over stomach, verified hb return of gastric contents, Placement verified by X-ray, to intermittent suction. Returned gastric contents. 18:05 Assisted provider with central line placement. Set up central line tray. Triple lumen hb line placed in right femoral. Line placed by Jorge Rowe MD Placement verified by blood return, Dressed with Tegaderm, BioPatch. 18:10 Minh Patton DO is Hospitalizing Provider. rn 18:19 CT completed. Patient tolerated procedure well. Patient moved back from CT. bq 18:33 Nina Myers, RN is Primary Nurse. hb 19:28 IV is patent, with fluids infusing freely, with good blood return. tl2 20:52 Patient admitted, IV remains in place. tl2 Administered Medications: 14:20 Drug: Xopenex 1.25 mg Route: Inhalation; iw 14:30 Drug: NS 0.9% 500 ml Route: IV; Rate: bolus; Site: right hand; hb 15:05 Follow up: Response: No adverse reaction; IV Status: Completed infusion hb 17:28 Drug: Etomidate 20 mg Route: IVP; Site: right hand; iw 18:00 Follow up: Response: No adverse reaction hb 17:28 Drug: Succinylcholine 100 mg Route: IVP; Site: right hand; iw 18:00 Follow up: Response: No adverse reaction hb 17:55 Drug: Ativan 2 mg Route: IVP; Site: right hand; iw 18:45 Follow up: Response: No adverse reaction hb 18:02 Drug: Propofol 5 mcg/kg/min Route: IV; Rate: calculated rate; Site: right femoral; hb 20:55 Follow up: IV Status: Infusion continued upon admission tl2 18:36 Drug: Ativan 2 mg Route: IVP; Site: right femoral; hb 20:54 Follow up: Response: No adverse reaction tl2 18:43 Drug: D5-1/2 NS 1000 ml Route: IV; Rate: 100 ml/hr; Site: right femoral; hb 20:55 Follow up: IV Status: Infusion continued upon admission tl2 18:53 Drug: NS 0.9% 500 ml Route: IV; Rate: bolus; Site: right femoral; hb 20:54 Follow up: IV Status: Completed infusion; IV Intake: 500ml tl2 Intake: 20:54 IV: 500ml; Total: 500ml. tl2 Ventilator: 18:30 Fi02: 40%; T.V.: 500ml; Peep: 5cm; Mode: CMV; ET tube: 7.35 mm; hb Outcome: 18:11 Decision to Hospitalize by Provider. rn 20:52 Admitted to ICU accompanied by nurse, accompanied by tech, via stretcher, room 1, with tl2 oxygen, on monitor, with chart, Report called to AILYN Carrero 20:52 Condition: stable 20:52 Discharge instructions given to family, Instructed on the need for admit. 20:55 Patient left the ED. tl2 Signatures: Dispatcher [employer] EDMS Naye Neumann Irene, RN RN iw Nieto, Roman, MD MD rn Davis, Victoria vr Hall, Patricia, RN RN ph Baxter, Heather, RN RN hb Knox, Taylor, RN RN tl2 Corrections: (The following items were deleted from the chart) 18:20 14:18 BP 180 / 83; Pulse 89bpm; Resp 22bpm; Pulse Ox 98% 02 100% Nebulizer Mask; Temp ph 98.8F; ph
--- NOTE | 2018-06-19 18:12 | EDPHYS ---
Physician Documentation [facility] Name: Michelle Benson Age: 78 yrs Sex: Female : 1940 Arrival Date: 06/19/2018 Time: 14:04 Bed 3 Private MD: ED Physician Jorge Rowe HPI: 06/19 15:56 This 78 yrs old Female presents to ER via EMS with complaints of AMS, low rn oxygen. 15:57 The patient presents with decreased responsiveness. Onset: The symptoms/episode rn began/occurred today. Possible causes: unknown. Current symptoms: In the emergency department the patient's symptoms have improved. It is unknown whether or not the patient has had similar symptoms in the past. Per EMS, called out because was ashen and unresponsive, O2 sat for family was 35%, EMS got 55% on RA, EMS was going to intubate but responded to solumedrol/magnesium/oxygen/nebs. More awake now. Family reports pt laying in bed for a few days, decreased appetite and energy, recently on abx for lung infection they think. . Historical: - Allergies: 14:19 Codeine; ph 14:19 perindopril erbumine; ph - Home Meds: 15:15 alendronate 70 mg Oral tab 1 tab 1 x per week on Sat [Active]; Ambien 10 mg Oral tab 1 ph tab once daily [Active]; anastrozole 1 mg Oral tab 1 tab once daily [Active]; citalopram 40 mg tab 1 tab once daily [Active]; clopidogrel 75 mg Oral tab 1 tab once daily [Active]; levothyroxine 100 mcg tab 1 tab once daily [Active]; Crestor 10 mg Oral tab 1 tab once daily [Active]; metoprolol tartrate 25 mg Oral tab 1 tab 2 times per day [Active]; losartan 100 mg Oral tab 1 tab once daily [Active]; hydralazine 25 mg Oral tab as needed [Active]; Lyrica 50 mg Oral 1 cap daily [Active]; furosemide 20 mg Oral tab 1 tab once daily [Active]; prednisone 10 mg Oral tab 1 tab 2 times per day [Active]; ipratropium-albuterol 0.5 mg-3 mg(2.5 mg base)/3 mL Inhl nebu 4 times per day [Active]; Brovana 15 mcg/2 mL inhalation nebu 2 mL 2 times per day [Active]; potassium chloride 20 mEq Oral TbER 1 tab [Active]; Daliresp 500 mcg oral tab 1 tab once daily [Active]; ProAir HFA 90 mcg/actuation inhalation HFAA 2 puffs every 4 hours [Active]; tramadol 50 mg Oral tab 1 tab as needed [Active]; Vitamin D Oral 2000 unit daily [Active]; Spiriva Respimat 2.5 mcg/actuation inhalation mist 2 puffs once daily [Active]; Oxygen \T\ 2L PRN and at night [Active]; acetaminophen 325 mg Oral tab 2 tabs as needed [Active]; docusate sodium 100 mg Oral cap 1 cap once daily [Active]; - PMHx: 15:15 CAD; cancer- breast L side, throat, L ear; CHEMO; COPD; CHF; Depression; GERD; heart ph arrythmia unknown; 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 - Social history:: Smoking status: Patient uses tobacco products, approx 5 cigarettes per day. - Ebola Screening: : No symptoms or risks identified at this time. - Family history:: not pertinent. - Hospitalizations: : No recent hospitalization is reported. ROS: 15:57 Unable to obtain ROS due to altered mental status. rn Exam: 15:57 Constitutional: This is a well developed, well nourished patient who is awake, rn somnolent but awakens to voice and soft touch Head/Face: Normocephalic, atraumatic. Eyes: Pupils equal round and reactive to light, extra-ocular motions intact. Lids and lashes normal. Conjunctiva and sclera are non-icteric and not injected. Cornea within normal limits. Periorbital areas with no swelling, redness, or edema. ENT: dry MM, no stridor Neck: Trachea midline, no thyromegaly or masses palpated, and no cervical lymphadenopathy. Supple, full range of motion without nuchal rigidity, or vertebral point tenderness. No Meningismus. Cardiovascular: Regular rate and rhythm with a normal S1 and S2. No gallops, murmurs, or rubs. Normal PMI, no JVD. No pulse deficits. Respiratory: coarse bilateral breath sounds, + diffuse wheezing, mild tachypnea, no retractions Abdomen/GI: soft, non-tender MS/ Extremity: Pulses equal, no cyanosis. Neurovascular intact. Full, normal range of motion. Equal circumference. Neuro: Awake, follows commands, difficult to understand speech Vital Signs: 14:18 BP 180 / 83; Pulse 89; Resp 22; Temp 98.8; Pulse Ox 98% on 100% Nebulizer Mask; Weight ph 72.57 kg; Height 5 ft. 5 in. (165.10 cm); 14:35 Pulse Ox 84% on 4 lpm NC; hb 14:58 BP 183 / 80; Pulse 87; Resp 17; Pulse Ox 94% on 93% BiPAP; hb 16:00 BP 158 / 64; Pulse 87; Resp 24; Pulse Ox 97% on 45% BiPAP; hb 17:00 BP 172 / 73; Pulse 86; Resp 25; Pulse Ox 100% on 45% BiPAP; hb 18:00 BP 98 / 68; Pulse 88; Resp 20; Pulse Ox 100% on 15 lpm ETT ambu; hb 18:30 BP 120 / 50; Pulse 80; Resp 20; Pulse Ox 100% on ETT vent; hb 18:45 BP 67 / 49; Pulse 73; Resp 20; Pulse Ox 100% on 40% FiO2 ETT vent; hb 19:00 BP 87 / 54; Pulse 74; Resp 20; Pulse Ox 100% on 40% FiO2 ETT vent; tl2 19:18 BP 108 / 52; Pulse 71; Resp 20; Temp 97.5(C); Pulse Ox 100% on 40% FiO2 ETT vent; tl2 19:50 BP 100 / 52; Pulse 72; Resp 20; Pulse Ox 100% on 40% FiO2 ETT vent; tl2 14:18 Body Mass Index 26.63 (72.57 kg, 165.10 cm) ph 14:58 BIPAP 14/6, R 18, FiO2 45% hb Ventilator: 18:30 Fi02: 40%; T.V.: 500ml; Peep: 5cm; Mode: CMV; ET tube: 7.35 mm; hb Procedures: 18:06 Intubation: Ventilated with 100% NRB prior to procedure. O2 saturation prior to furniture finisher was 96 %. Intubated orally using # 4 Vannesa blade with 7.5 mm ETT. was successful on first attempt. Cricoid pressure applied during procedure. Tube secured with ETT sanchez at right side of mouth measured 23 cm at gum. Placement verified by CO2 detector with (+) color change, auscultating bilateral breath sounds, O2 saturation after procedure was 98 %. Patient tolerated well. Central Line: the site was prepped with Betadine, in sterile fashion, a triple lumen catheter was inserted, in the right in 3 attempts. placement was verified, by blood return, the site was dressed with Tegaderm, using sterile technique, the patient tolerated the procedure, well. MDM: 14:04 Patient medically screened. rn 18:06 Differential Diagnosis: CVA, electrolyte abnormality, hypoglycemia, intracranial bleed, rn pneumonia, seizure, sepsis, TIA, UTI, volume depletion, respiratory failure. Data reviewed: vital signs, nurses notes, lab test result(s), radiologic studies, plain films, and as a result, I will admit patient. Counseling: I had a detailed discussion with the patient and/or guardian regarding: the historical points, exam findings, and any diagnostic results supporting the discharge/admit diagnosis, lab results, radiology results, the need for further work-up and treatment in the hospital. Response to treatment: the patient's symptoms have mildly improved after treatment, and as a result, I will admit patient. ED course: Pt admitted to Dr. Patton for ICU admit for respiratory failure and hypercapnia with AMS. Dr. Patton requested intubation and CT head prior to admission. Intubated and has central line, in CT. Updated family. Will admit pending ct head.. 06/19 14:06 Order name: Blood Culture Adult (2) rn 06/19 14:06 Order name: BMP; Complete Time: 15:26 rn 06/19 14:06 Order name: CBC with Diff; Complete Time: 16:15 rn 06/19 14:06 Order name: Ckmb; Complete Time: 15:26 rn 06/19 14:06 Order name: CPK; Complete Time: 15:26 rn 06/19 14:06 Order name: NT PRO-BNP; Complete Time: 15:26 rn 06/19 14:06 Order name: Troponin (emerg Dept Use Only); Complete Time: 15:26 rn 06/19 14:06 Order name: Procalcitonin; Complete Time: 15:53 rn 06/19 14:06 Order name: Urine Culture rn 06/19 14:09 Order name: ABG; Complete Time: 15:26 rn 06/19 15:45 Order name: CBC Smear Scan; Complete Time: 16:15 EDMS 06/19 15:53 Order name: ABG; Complete Time: 17:10 rn 06/19 17:42 Order name: CKMB Creatine Kinase MB EDMS 06/19 14:06 Order name: XRAY CXR (1 view); Complete Time: 15:53 rn 06/19 14:40 Order name: BIPAP iw 06/19 17:41 Order name: CXR XRAY iw 06/19 17:42 Order name: Head Brain Wo Cont EDMS 06/19 17:43 Order name: Creatine Phosphokinase EDMS 06/19 17:43 Order name: Troponin I EDNJ 06/19 17:43 Order name: ABG Arterial Blood Gas EDMS 06/19 18:42 Order name: Urine Dipstick--Ancillary (enter results) 06/19 19:31 Order name: Urine Dipstick-Ancillary EDNJ 06/19 20:26 Order name: Alcohol Serum/Plasma EDMS 06/19 20:27 Order name: Acetaminophen Level EDMS 06/19 20:27 Order name: Salicylates Level EDMS 06/19 20:29 Order name: Acetone Level EDMS 06/19 20:41 Order name: Phosphorus EDMS 06/19 20:41 Order name: Thyroid Stimulating Hormone EDNJ 06/19 14:06 Order name: EKG; Complete Time: 14:06 rn 06/19 14:06 Order name: Cardiac monitoring; Complete Time: 14:40 rn 06/19 14:06 Order name: EKG - Nurse/Tech; Complete Time: 14:40 rn 06/19 14:06 Order name: IV Saline Lock; Complete Time: 14:40 rn 06/19 14:06 Order name: Labs collected and sent; Complete Time: 14:40 rn 06/19 14:06 Order name: O2 Per Protocol; Complete Time: 14:40 rn 06/19 14:06 Order name: O2 Sat Monitoring; Complete Time: 14:40 rn 06/19 14:06 Order name: Urine Dipstick-Ancillary (obtain specimen); Complete Time: 18:34 rn 06/19 17:43 Order name: CONS Pharmacy Consult EDMS 06/19 17:43 Order name: CONS Physician Consult EDNJ 06/19 17:43 Order name: CONS Physician Consult EDNJ 06/19 17:43 Order name: Respiratory Therapy Consult EDNJ 06/19 17:43 Order name: NPO EDNJ 06/19 17:43 Order name: Echo with Doppler EDMS 06/19 17:43 Order name: Renal Ultrasound-Complete EDMS 06/19 18:06 Order name: CT Head Brain wo Cont rn 06/19 18:35 Order name: Mccain; Complete Time: 18:36 hb 06/19 18:35 Order name: NG Tube; Complete Time: 18:36 hb 06/19 18:49 Order name: CT; Complete Time: 19:03 EDMS 06/19 18:50 Order name: RAD; Complete Time: 19:03 EDMS Administered Medications: 14:20 Drug: Xopenex 1.25 mg Route: Inhalation; iw 14:30 Drug: NS 0.9% 500 ml Route: IV; Rate: bolus; Site: right hand; hb 15:05 Follow up: Response: No adverse reaction; IV Status: Completed infusion hb 17:28 Drug: Etomidate 20 mg Route: IVP; Site: right hand; iw 18:00 Follow up: Response: No adverse reaction hb 17:28 Drug: Succinylcholine 100 mg Route: IVP; Site: right hand; iw 18:00 Follow up: Response: No adverse reaction hb 17:55 Drug: Ativan 2 mg Route: IVP; Site: right hand; iw 18:45 Follow up: Response: No adverse reaction hb 18:02 Drug: Propofol 5 mcg/kg/min Route: IV; Rate: calculated rate; Site: right femoral; hb 20:55 Follow up: IV Status: Infusion continued upon admission tl2 18:36 Drug: Ativan 2 mg Route: IVP; Site: right femoral; hb 20:54 Follow up: Response: No adverse reaction tl2 18:43 Drug: D5-1/2 NS 1000 ml Route: IV; Rate: 100 ml/hr; Site: right femoral; hb 20:55 Follow up: IV Status: Infusion continued upon admission tl2 18:53 Drug: NS 0.9% 500 ml Route: IV; Rate: bolus; Site: right femoral; hb 20:54 Follow up: IV Status: Completed infusion; IV Intake: 500ml tl2 Disposition: 18:11 Critical Care:. rn Disposition: 06/19/18 18:11 Hospitalization ordered by Minh Patton for Inpatient Admission. Preliminary diagnosis are Respiratory failure, unspecified with hypercapnia, Altered mental status, unspecified. - Bed requested for Intensive Care Unit. - Status is Inpatient Admission. tl2 - Condition is Stable. - Problem is new. - Symptoms have improved. UTI on Admission? No Critical care time excluding procedures: 18:11 Critical care time: Bedside Care: 30 minutes, Consultation: 5 minutes, Family rn Intervention: 10 minutes. Total time: 45 minutes Signatures: Dispatcher [employer] EDNJ Annabella Durbni RN RN Jorge Rowe MD MD rn Hall, Patricia, RN RN Nina Myers RN RN Romi Harman RN RN 2 Marcia Lira Corrections: (The following items were deleted from the chart) 14:10 14:10 Arterial Blood Gas+[id number].LAB.BRZ ordered. [facility] EDNJ 17:51 17:42 Blood Culture ordered. [facility] EDNJ 18:11 18:11 Hospitalization Ordered by Minh Patton DO for Inpatient Admission. Preliminary rn diagnosis is Respiratory failure, unspecified with hypercapnia. Bed requested for Intensive Care Unit. Status is Inpatient Admission. Condition is Stable. Problem is new. Symptoms have improved. UTI on Admission? No. rn 18:55 18:11 06/19/2018 18:11 Hospitalization Ordered by Minh Patton DO for Inpatient eb Admission. Preliminary diagnosis is Respiratory failure, unspecified with hypercapnia; Altered mental status, unspecified. Bed requested for Intensive Care Unit. Status is Inpatient Admission. Condition is Stable. Problem is new. Symptoms have improved. UTI on Admission? No. rn 20:55 18:55 06/19/2018 18:11 Hospitalization Ordered by Minh Patton DO for Inpatient tl2 Admission. Preliminary diagnosis is Respiratory failure, unspecified with hypercapnia; Altered mental status, unspecified. Bed requested for Intensive Care Unit. Status is Inpatient Admission. Condition is Stable. Problem is new. Symptoms have improved. UTI on Admission? No. eb
[2018-06-19] MEDS ORDERED: D5W 1,000 ML with NA BICARB 8.4% 100 MEQ IV SCH ×2 (18:30)
[2018-06-19] MEDS ORDERED: D5 0.45 NS 1,000 ML IV ONE (18:46)
--- NOTE | 2018-06-19 18:48 | RAD REPORT ---
EXAM DESCRIPTION: CT - Head Brain Wo Cont - 06/19/2018 6:20 pm CLINICAL HISTORY: CONFUSED Drowsiness COMPARISON: Facial Bones W/ Mpr dated 04/25/2017; Ct Stroke Brain Wo Cont dated 01/24/2017 TECHNIQUE: All CT scans are performed using dose optimization technique as appropriate and may inclu de automated exposure control or mA/KV adjustment according to patient size. FINDINGS: No intracranial hemorrhage, hydrocephalus or extra-axial fluid collection.Mild generalized brain atrophy is present with mild periventricular and deep white matter chronic microvascular ische fabiola changes.No areas of brain edema or evidence of midline shift. The paranasal sinuses and mastoids are clear. The calvarium is intact. The vertebral arteries are mil dly calcified. IMPRESSION: No acute intracranial abnormality.
--- NOTE | 2018-06-19 18:49 | RAD REPORT ---
EXAM DESCRIPTION: RAD - Chest Single View - 06/19/2018 6:30 pm CLINICAL HISTORY: POST ETT Chest pain. COMPARISON: Chest Single View dated 06/19/2018; Chest Pa And Lat (2 Views) dated 06/02/2018; Chest Pa A nd Lat (2 Views) dated 01/20/2018; Chest Single View dated 01/09/2018 FINDINGS: Portable technique limits examination quality. The tip of the ET tube is above the rachid. Enteric tube descends into the abdomen. The lungs are emp hysematous with exclusion of the lung bases on this radiograph. The heart is upper limit normal size. No displaced fractures.Aortic atherosclerosis.
[2018-06-19] MEDS: NA CHLORIDE 0.9% 1,000 ML IV SCH (19:00)
[2018-06-19 19:30] LABS: Urine Blood 1+ (NEG); Urine Glucose NEGATIVE (NEG); Urine Protein 1+ (NEG); Urine pH 6.5 (5.0-7.0)
[2018-06-19] MEDS: ARFORMOTEROL TARTRATE 15 MCG/2 ML VIAL.NEB NEB SCH (20:00)
[2018-06-19 20:40] LABS: Phosphorus 2.8 mg/dL (2.5-4.9); Thyroid Stimulating Hormone 0.182 uIU/mL (0.360-3.740)
[2018-06-19] MEDS: Meropenem 1,000 MG in NA CHLORIDE 0.9% 100 ML IV SCH (21:00)
[2018-06-19] MEDS ORDERED: Meropenem 1000 MG/VIAL IV SCH (21:00)
[2018-06-19] MEDS ORDERED: Meropenem 1 GM/100 ML BAG ONE (21:42)
[2018-06-19 21:52] LABS: Urine Appearance CLEAR; Urine Blood 3+ (NEG); Urine Color YELLOW; Urine Glucose 1+ (NEG); Urine Protein 1+ (NEG); Urine Specific Gravity 1.025 (1.005-1.030); Urine pH 6.5 (5.0-7.0)
[2018-06-19] MEDS ORDERED: VANCOMYCIN 1.75 GM in NA CHLORIDE 0.9% 500 ML IVPB ONE (22:00)
[2018-06-19 22:06] LABS: Urine Bilirubin NEGATIVE (NEG)
[2018-06-19 22:08] LABS: Barbiturates NEGATIVE (NEGATIVE); Benzodiazepines NEGATIVE (NEGATIVE); Cocaine NEGATIVE (NEGATIVE); METHAMPHETAM NEGATIVE (NEGATIVE); Methadone NEGATIVE (NEGATIVE); Opiates NEGATIVE (NEGATIVE); Phencyclidine NEGATIVE (NEGATIVE); THC Cannibis NEGATIVE (NEGATIVE)
[2018-06-19] MEDS ORDERED: VANCOMYCIN 2 GM/500 ML BAG ONE (22:11)
[2018-06-19 22:14] LABS: Urine Bacteria <20 /HPF (<20)
[2018-06-19 22:15] LABS: Urine Amorphous Sediment TRACE /HPF (NONE SEEN); Urine Culture Reflex Order NOT NEEDED
[2018-06-19 23:13] LABS: Arterial Blood Carboxyhemoglob 2.2 % (0-1.5); Blood Gas Oxyhemoglobin 91.5 % (94-97); Blood O2 Saturation 94.4 % (92-98.5)
[2018-06-19] MEDS ORDERED: HALOPERIDOL LACT 5 MG/ML INJ IV PRN (23:19)
[2018-06-19] MEDS ORDERED: MIDAZOLAM HCL 2 MG/2 ML INJ IV PRN (23:19)
[2018-06-19] MEDS ORDERED: NA CHLORIDE 0.9% 250 ML IV PRN (23:19)
[2018-06-19] MEDS: METHYLPREDNISOLONE 125 MG INJ IV SCH (23:26)
[2018-06-19 23:40] LABS: Troponin I 0.05 ng/mL (0.0-0.045)
[2018-06-20] MEDS: NA CHLORIDE 0.9% 1,000 ML IV SCH ×2 (03:36→14:03)
[2018-06-20] MEDS: PROPOFOL 1,000 MG/100 ML VIAL IV PRN (03:36)
[2018-06-20] MEDS: METHYLPREDNISOLONE 125 MG INJ IV SCH ×2 (05:17→16:40)
[2018-06-20 06:01] LABS: Albumin 2.9 g/dL (3.4-5.0); Bilirubin Total 0.4 mg/dL (0.2-1.0); Magnesium 2.4 mg/dL (1.8-2.4); Potassium 4.7 mmol/L (3.5-5.1); Protein, Total 5.2 g/dL (6.4-8.2); Thyroid Stimulating Hormone 0.158 uIU/mL (0.360-3.740)
[2018-06-20 06:11] LABS: Arterial Blood Carboxyhemoglob 1.7 % (0-1.5); Blood Gas Oxyhemoglobin 91.4 % (94-97); Blood O2 Saturation 93.7 % (92-98.5)
[2018-06-20 06:19] LABS: Absolute Lymphocytes (CBC) 0.3 K/uL (0.7-4.9); Absolute Monocytes 0.3 K/uL (0.1-1.3); Absolute Neutrophil 8.4 K/uL (1.8-8.0); Basophils % 0.1 % (0-1.3); Hematocrit 33.9 % (36.0-45.0); Lymphocytes % 2.9 % (15.3-44.8); MCH 25.1 pg (27.0-35.0); MCV 79.4 fL (80-100); MPV 8.6 fL (7.6-11.3); Monocytes % 3.8 % (3.3-12.3); RBC Red Blood Cell Count 4.28 M/uL (3.86-4.86)
[2018-06-20 07:03] LABS: CKMB Creatine Kinase MB 3.9 ng/mL (0.3-3.6); Troponin I 0.05 ng/mL (0.0-0.045)
[2018-06-20] MEDS: ARFORMOTEROL TARTRATE 15 MCG/2 ML VIAL.NEB NEB SCH ×2 (08:04→19:56)
--- NOTE | 2018-06-20 08:09 | RAD REPORT ---
EXAM DESCRIPTION: US - Renal Ultrasound-Complete - 06/19/2018 11:01 pm CLINICAL HISTORY: Acute on chronic renal failure COMPARISON: CT April 2016 FINDINGS: The right kidney measures 10.5 x 5.8 x 6.5 cm. The left kidney measures 7.8 x 3.5 x 3.4 c m. Right-sided cortical thickness and echogenicity are normal. There is a small quantity of free flui d position between the kidney and inferior right lobe liver. It is difficult to determine if this is intraperitoneal or retroperitoneal fluid. Findings favor fluid associated with the kidney. No right-s ided hydronephrosis or suspicious mass. Left kidney measures significantly smaller than the right. Size asymmetry was present back in 2015. C ortical thinning and increased cortical echogenicity of the left kidney noted. No hydronephrosis or s uspicious mass. Bladder was contracted and cannot be further assessed. IMPRESSION: Small quantity of free fluid between the right kidney and liver. This is favored to be a djacent to the kidney no peritoneal free fluid is more common. Right kidney shows normal cortical thickness and echogenicity. No hydronephrosis or mass. Small echogenic left kidney. Medical renal disease is evident. Size asymmetry was present back in 201 6. No bladder assessment can be made.
--- NOTE | 2018-06-20 08:12 | P.PN ---
Subjective Date of Service: 06/20/18 Primary Care Provider: Dr. Montgomery(Hospitalist covering); Pulm-Dr. Charles; Card-Dr. Urias Chief Complaint: AMS Subjective: Other (Patient intubated and slightly sedated.) Physical Examination - Vital Signs Temperature: 98.2 F Blood Pressure: 131/58 Pulse: 78 Respirations: 20 Pulse Ox (%): 97 - Physical Exam General: Alert, Other (Patient intubated and slightly sedated. Patient with restraints) HEENT: Atraumatic, Other (Endotracheal tube in place. Nasogastric tube in place ) Neck: Supple Respiratory: Clear to auscultation bilaterally Cardiovascular: Normal pulses, Regular rate/rhythm Gastrointestinal: Normal bowel sounds, Soft and benign, Non-distended, No tenderness, No masses, No rebound, No guarding Musculoskeletal: No erythema, No tenderness, No warmth Integumentary: No erythema, No warmth, No cyanosis Neurological: Normal strength at 5/5 x4 extr, Normal tone, Other (Patient in soft restraints) - Studies Laboratory Data (last 24 hrs) 06/19/18 14:35: WBC 10.2, Hgb 12.3, Hct 40.2, Plt Count 279 06/19/18 14:35: Sodium 137, Potassium 4.9, BUN 23 H, Creatinine 1.40 H, Glucose 127 H Microbiology Data (last 24 hrs): 06/19/18 14:30 Blood - Blood Anaerobic Blood Culture - Final 06/19/18 14:45 Blood - Blood Anaerobic Blood Culture - Final Medications List Reviewed: Yes Assessment & Plan Discharge Plan: Other (Home verses skilled placement) Plan to discharge in: Greater than 2 days Physician Review Additional Text: Impression: Acute encephalopathy likely secondary to acute on chronic respiratory failure with hypercapnia and hypoxia along with acute COPD exacerbation with history of severe COPD requiring home oxygen. Respiratory acidosis improving Acute on chronic renal failure High risk for aspiration pneumonia Hypertension CAD PVD Anemia likely of chronic disease Tobacco abuse Alcohol use History of throat cancer/breast cancer Plan: Patient continues to be intubated and sedated. Pulmonology consulted. Patient will be weaned off ventilator. Will continue with COPD treatment including IV steroids. Respiratory acidosis significantly improved. CT scan brain unremarkable. Patient on IV antibiotic therapy for broader coverage due to encephalopathy. Blood cultures, urine and sputum cultures obtained. Will recheck chest x-ray today. Will provide medication for hypertension. Patient on PPI. Patient also on thiamine due to history of alcohol use. Patient still smokes regularly. Anemia stable at this time. Will continue with DVT prophylaxis. Cardiology consulted to further monitor and assist. Await echocardiogram. Nephrology consulted due to acute on chronic renal failure. Renal ultrasound pending. Patient remains in soft restraints. Encephalopathy likely related to acute on chronic respiratory failure. If this persists patient may require MRI brain and EEG. Time Spent Managing Pts Care (In Minutes): 55
--- NOTE | 2018-06-20 08:15 | RAD REPORT ---
EXAM DESCRIPTION: RAD - Chest Single View - 06/20/2018 6:01 am CLINICAL HISTORY: Respiratory failure COMPARISON: June 19 TECHNIQUE: AP portable chest image was obtained 0544 hours . FINDINGS: Endotracheal tube and NG tube remain in good position. Interstitial markings are stable. N o new or progressive lung parenchymal process. Heart and vasculature are normal. No measurable pleura l effusion and no pneumothorax. No gross bony abnormality seen. No acute aortic findings suspected. IMPRESSION: Stable cardiopulmonary findings from prior day. NG tube and ET tube remain in good position.
[2018-06-20 08:36] LABS: Blood Morphology Comment NOT SEEN (NOT SEEN); Platelet Estimate ADEQ; Urine White Blood Cell Casts 0
[2018-06-20] MEDS: FAMOTIDINE 20 MG/2 ML VIAL IV SCH ×2 (08:51→20:06)
[2018-06-20] MEDS: ENOXAPARIN 30 MG/0.3 ML SQ SCH (08:51)
[2018-06-20] MEDS: THIAMINE 200 MG/2 ML INJ IVP SCH (08:52)
[2018-06-20] MEDS ORDERED: PANTOPRAZOLE 40 MG INJ IVP SCH (09:00)
--- NOTE | 2018-06-20 10:28 | P.CNS ---
Date of Consult: 06/20/18 Primary Care Provider: Dr. Montgomery(Hospitalist covering); Pulm-Dr. Charles; Card-Dr. Urias Chief Complaint: AMS History of Present Illness: Patient is 78 years of age with a history of terminal COPD continues to smoke heavily admitted with altered mental status hypoxic hypercapnic respiratory failure with a respiratory acidosis patient was then intubated transferred here to the ICU patient is hemodynamically stable on a propofol drip Allergies codeine Allergy (Verified 01/10/18 02:21) Unknown perindopril erbumine [From Aceon] Allergy (Verified 01/10/18 02:21) UNKNOWN Home Medications: Furosemide [Lasix*] 20 mg PO DAILY 02/26/14 Levothyroxine [Synthroid*] 100 mcg PO [id number] 02/26/14 Pregabalin [Lyrica] 50 mg PO DAILY 02/26/14 Zolpidem Tartrate [Ambien*] 10 mg PO BEDTIME PRN PRN #0 tablet 03/02/14 Alendronate Sodium 70 mg PO EVERY 7TH DAY 01/12/17 Clopidogrel Bisulfate [Plavix*] 75 mg PO DAILY 01/12/17 Rosuvastatin Calcium [Crestor] 10 mg PO DAILY 01/12/17 Tramadol HCl [Ultram] 50 mg PO PRN PRN 01/12/17 Losartan Potassium 100 mg PO DAILY 02/16/17 Roflumilast [Daliresp*] 500 mcg PO DAILY 02/16/17 Hydralazine [Apresoline*] 25 mg PO TID PRN #60 tab 03/15/17 Acetaminophen [Pain Relief 8Hr] 1 tab PO PRN PRN 01/10/18 Benzonatate [Tessalon Perle*] 1 cap PO DAILY 01/10/18 Tiotropium [place] [Spiriva Respimat] 2 puff IH DAILY 01/10/18 Albuterol Sulfate [Proair Hfa] 2 puff IH Q4H 06/19/18 Arformoterol Tartrate [Brovana] 15 mcg IH BID 06/19/18 Cholecalciferol (Vitamin D3) [Vitamin D 1000 Iu Tab*] 2,000 unit PO DAILY Citalopram Hydrobromide [Citalopram HBr] 40 mg PO DAILY 06/19/18 Ipratropium/Albuterol Sulfate [Iprat-Albut 0.5-3(2.5) mg/3 ml] 0.5 mg IN QID 05/29 Metoprolol Tartrate [Lopressor*] 2 tab PO DAILY 06/19/18 Potassium Chloride 1 tab PO DAILY 06/19/18 Pregabalin [Lyrica*] 50 mg PO BEDTIME 06/19/18 predniSONE [Deltasone*] 2 tab PO DAILY 06/19/18 - Past Medical/Surgical History Diabetic: No -: History of breast cancer -: History of throat cancer -: Hypertension -: Hypothyroidism -: COPD, steroid and oxygen-dependent -: Peripheral vascular disease -: Carotid arterial disease -: CHF -: Hyperlipidemia -: Obstructive sleep apnea -: Neuropathy -: Tobacco abuse -: Hysterectomy -: Hemorrhoidectomy -: Radiation to the vocal cords -: Stents to the lower extremity and carotid -: Bilateral eye surgery -: Left-sided mastectomy -: chemotherapy Psychosocial/ Personal History: Patient is . She has children. She does not work. - Family History Father Medical History: Heart disease Mother Medical History: Cancer Sister Medical History: Cancer Notes: Brother Medical History: Heart disease Notes: - Social History Smoking Status: Current every day smoker Alcohol use: Yes CD- Drugs: No Caffeine use: Yes Place of Residence: Home Review of Systems is unable to be obtained Physical Examination Temp Pulse Resp BP Pulse Ox 98.2 F 78 20 131/58 L 97 06/20/18 08:13 06/20/18 08:13 06/20/18 08:13 06/20/18 08:13 06/20/18 08:13 General: Comatose HEENT: Atraumatic Neck: Supple Respiratory: Expiratory wheezes Cardiovascular: Regular rate/rhythm Gastrointestinal: Normal bowel sounds, Soft and benign Musculoskeletal: No clubbing, No swelling Integumentary: No rashes, No breakdown Laboratory Data (last 24 hrs) 06/19/18 14:35: WBC 10.2, Hgb 12.3, Hct 40.2, Plt Count 279 06/19/18 14:35: Sodium 137, Potassium 4.9, BUN 23 H, Creatinine 1.40 H, Glucose 127 H - Problems (1) Respiratory failure with hypercapnia Current Visit: Yes Status: Acute Plan: Patient is 78 years of age well known to me she is terminal COPD continues to smoke baseline hypercapnia admitted with altered mental status hypoxic hypercapnic respiratory failure is currently doing well chest x-ray shows COPD changes no evidence of sepsis laboratory data Band-Aid all reviewed she is only on 25% oxygen plan is to change consultant to SIMV reduced rate wean off propofol wean and extubate Patient has baseline hypercapnia and will benefit from a noninvasive ventilator tube and further Re hospitalizations due to recurrent exacerbations Qualifiers: Chronicity: acute on chronic Qualified Code(s): J96.22 - Acute and chronic respiratory failure with hypercapnia
[2018-06-20] MEDS: Meropenem 1,000 MG in NA CHLORIDE 0.9% 100 ML IV SCH ×2 (10:29→20:06)
[2018-06-20] MEDS: LORazepam 2 MG/ML VIAL IV PRN ×3 (12:15→23:59)
[2018-06-20] MEDS: IPRATROPIUM BROM 0.5MG/2.5ML NEB SCH ×2 (14:00→19:55)
[2018-06-20] MEDS ORDERED: SUCCINYLCHOLINE 20 MG/ML (10 ML) IV ONE (14:40)
[2018-06-20] MEDS ORDERED: ETOMIDATE 20 MG/10 ML VIAL IV ONE (14:40)
[2018-06-20] MEDS: FENTANYL CITR 100 MCG/2 ML IV PRN ×2 (16:01→20:12)
[2018-06-20] MEDS: HYDRALAZINE HCL 20 MG/ML VIAL IV PRN (22:50)
[2018-06-21] MEDS: FENTANYL CITR 100 MCG/2 ML IV PRN ×2 (00:15→10:54)
[2018-06-21] MEDS: METHYLPREDNISOLONE 125 MG INJ IV SCH ×3 (00:56→16:45)
[2018-06-21] MEDS: NA CHLORIDE 0.9% 1,000 ML IV SCH ×3 (00:57→20:21)
--- NOTE | 2018-06-21 00:58 | CON ---
Date of Consultation: 06/20/2018 Chief Complaint: Acute on chronic kidney injury, nonoliguric. History Of Present Illness: The patient was found to have moderately severe prerenal azotemia. BUN was 22, creatinine 1.4. The patient has chronic kidney disease stage 3. Baseline creatinine is 1.1 and 1.2. The patient presented to the hospital with altered mental status. She became very lethargic over last several days and she was found to have severe respiratory acidosis with hypercarbia. Acute kidney injury was found and patient was screened for rhabdomyolysis. CK level was up to 539, ammonia level was less than 10. The patient was started on IV fluids for hydration and to prevent renal hypoperfusion. Urine output remains nonoliguric. The patient is 78-year-old with history of terminal COPD. She is active smoker. She was admitted with hypoxemic hypercarbic respiratory failure and severe respiratory acidosis due to hypercarbia. She was intubated and transferred to ICU. She had ultrasound done which show questionable loculated fluid in the kidney in proximity to the liver and Urology consultation was requested. The patient is started on antibiotics. The patient remains intubated, ventilated, cannot provide review of systems. She was treated with IV steroids for COPD exacerbation. She has history of coronary artery disease, peripheral vascular disease, hypertension, depression. She remains on home oxygen for severe COPD. In the ER. She was started on BiPAP, although she was intubated due to severe respiratory acidosis ABG was done and showed pH of 7.1, pCO2 108, sodium 137, potassium 4.9, CO2 39, BUN 23, creatinine 1.4. CK level was 66, CK-MB was 3.2. Subsequently, CK level was found to be elevated up to 500 range. Past Medical History: As stated above, patient does not have history of diabetes. She has history of breast cancer, throat cancer, hypertension, hypothyroidism, COPD steroid and oxygen dependent, peripheral vascular disease, carotid artery disease, CHF, hyperlipidemia, obstructive sleep apnea, neuropathy , tobacco abuse, hysterectomy, hemorrhoidectomy, radiation to vocal cord, stents to the lower extremity and carotids bilaterally, left side mastectomy and chemotherapy. Family History: Father had heart disease. Mother cancer. Sister cancer. Brother is . Social History: Active tobacco smoker greater than 10 cigarettes per day. Alcohol use denies. Denies illicit drugs. Physical Examination: General: The patient is intubated, ventilated, cannot provide review of systems. EYES: Atraumatic. No conjunctivitis. Neck: Supple. Lungs: Expiratory wheezes diminished bilaterally. Cardiovascular: S1, S2. No pericardial friction. Gastrointestinal: Normal bowel sounds throughout. No rebound. No guarding. Musculoskeletal: No erythema. No tenderness. No increased warmth. Skin: Warm and dry. No skin rashes. No cyanosis. Neurologic: Moving extremities. Cranial nerves intact. Psychiatric: Unobtainable, the patient is intubated. Laboratory Data: WBC 10.2, hemoglobin 12.3, hematocrit 40.8, platelet count is 279, creatinine 1.4, potassium 4.9, sodium 137, BUN 23. Impression And Plan: 1. Altered mental status, acute encephalopathy secondary to hypercarbia and respiratory failure with hypoxemia. The patient has severe respiratory acidosis. The patient was intubated. Re-evaluate ABG. 2. Acute kidney injury. Continue IV fluids. Monitor renal panel and urine output. 3. High risk of pneumonia. Recommend antibiotics.Adjust antibiotics to renal dose 4. Renal ultrasound shows questionable loculated fluid, reassess and rule out abscess. 5. Monitor evidence of proteinuria, rule out monoclonal gammopathy of unknown significance. EB/MODL Voice ID: [id number] Report ID: [id number] MTDD
[2018-06-21] MEDS: IPRATROPIUM BROM 0.5MG/2.5ML NEB SCH ×4 (01:22→20:02)
[2018-06-21 05:41] LABS: Urine Total Volume 24 Hours 700 ml
[2018-06-21 05:45] LABS: UR PROTEIN 57 mg/dL (<11.9)
[2018-06-21] MEDS: PROPOFOL 1,000 MG/100 ML VIAL IV PRN (05:46)
[2018-06-21 05:52] LABS: Absolute Lymphocytes (CBC) 0.2 K/uL (0.7-4.9); Absolute Monocytes 0.3 K/uL (0.1-1.3); Absolute Neutrophil 14.1 K/uL (1.8-8.0); Basophils % 0.2 % (0-1.3); Hematocrit 32.9 % (36.0-45.0); Lymphocytes % 1.6 % (15.3-44.8); MCH 25.1 pg (27.0-35.0); MCV 78.5 fL (80-100); MPV 8.4 fL (7.6-11.3); Monocytes % 2.2 % (3.3-12.3); RBC Red Blood Cell Count 4.19 M/uL (3.86-4.86)
[2018-06-21 05:54] LABS: Albumin 2.7 g/dL (3.4-5.0); Bilirubin Total 0.4 mg/dL (0.2-1.0); Magnesium 2.5 mg/dL (1.8-2.4); Potassium 4.4 mmol/L (3.5-5.1)
--- NOTE | 2018-06-21 06:40 | CON ---
Date of Consultation: 06/20/2018 Reason For Consultation: Respiratory failure. History Of Present Illness: Ms. Benson is a 78-year-old woman, has a history of hypertension, dyslip idemia, peripheral vascular disease, COPD, chronic renal insufficiency, chronic coronary artery disea se, chronic congestive heart failure. She had had a history of left mastectomy before, status post c hemotherapy, and history of gastroesophageal reflux disease. Came in with COPD exacerbation type of symptoms. Her pO2 was 84, pCO2 was 108, with a pH of 7.16, severe CO2 retention, intubated on mechan ical ventilator now. No reports of chest pain or syncope. Past Medical History: As stated above. Allergies: SHE IS ALLERGIC TO CODEINE AND . Review of Systems: Negative. Social History: Positive for history of tobacco. Family History: Positive for heart disease. Review of Systems: Ten-point review of systems is negative. Medications: At home include Plavix, Crestor, Fosamax, Lyrica, multiple inhalers. She is on lisinop ril, losartan, Lopressor, Lasix, and hydralazine. Physical Examination: General: The patient is on mechanical ventilation. Vital Signs: Stable. She is tachycardic but afebrile. O2 saturation is adequate on ventilator, 100 %. HEENT: Negative. Neck: Supple without any bruit, lymphadenopathy, JVD, or thyromegaly. Chest: Revealed wheezing throughout with some bibasilar rales. Cardiac: Revealed tachycardia without any murmurs, gallops, or rubs. Abdomen: Benign. Extremities: Revealed no clubbing, cyanosis, or edema. Skin: Warm and was dry. Vascular: Pulses were adequate in the distal extremities. Diagnostic Data: Showed a troponin of 0.05. BNP of 3717. Her CPK was 752. TSH was 0.158. Chest x -ray is negative for CHF. EKG is sinus tach with PACs. Impression And Plan: 1.Acute exacerbation of chronic obstructive pulmonary disease. 2.Chronic diastolic congestive heart failure. 3.Chronic coronary artery disease, stable. 4.Peripheral vascular disease. 5.Hypertension. 6.Chronic renal insufficiency. 7.Elevated troponin and BNP secondary to hypoxia. 8.Status post left mastectomy. 9.History of chemotherapy. 10.Gastroesophageal reflux disease. 11.Low TSH level consistent with hyperthyroidism. The patient is presently intubated. She is receiving adequate therapy with antibiotics, inhalers. E chocardiogram is pending for the morning. I agree with her present regimen. We will follow her mara g and may be change therapy depending what the echocardiogram shows. No plans for coronary intervent ions at this point. CINDY/EDUARDO Voice ID: [id number] Report ID: [id number]
--- NOTE | 2018-06-21 06:46 | RAD REPORT ---
EXAM DESCRIPTION: RENAL - Abdomen Pelvis Scan US - 06/20/2018 11:56 pm CLINICAL HISTORY: Abnormal renal function COMPARISON: Renal ultrasound June 19. TECHNIQUE: Sonographic evaluation of the kidneys was performed with measurements obtained and gross anatomic assessment performed. Grayscale and Doppler interrogation of the renal arteries, interlobar arteries and aorta performed. Waveforms and velocities were recorded. The renal artery ratios and r esistive index values were calculated. FINDINGS: Renal anatomic assessment was performed on the June 19 renal ultrasound study. No gr oss change in the kidneys over this 1 day interval. Renal artery ratios are well within normal limits measuring 1.1 on the right and 0.6 on the left. No suspicious waveform pattern or velocity abnormality. Aorta resistive index is 0.70 with right renal a rtery showing 0.71-0.75 resistive index values. Left renal artery 0.66-0.69 resistive index values ca lculated. Arcuate resistive index values were 0.61 on the left and 0.75 on the right. IMPRESSION: Normal renal artery ratios. No suspicious velocity or waveform patterns.
--- NOTE | 2018-06-21 06:47 | RAD REPORT ---
EXAM DESCRIPTION: RAD - Chest Single View - 06/21/2018 6:40 am CLINICAL HISTORY: Respiratory failure, intubation COMPARISON: June 20 TECHNIQUE: AP portable chest image was obtained 0622 hours . FINDINGS: Prominent interstitial markings are present matching the prior day study. No new mass or c onsolidation. Interstitial markings may be fractionally increased in the right base. Any change is mi nimal and this can be monitored on subsequent imaging. Heart size remains upper normal. Pulmonary vas culature remains upper normal. ET tube and NG tube remain in place. No new tube or line. No measurable pleural effusion and no pneumothorax. No gross bony abnormality seen. No acute aortic findings suspected. IMPRESSION: No significant change to the chest from the prior day study. Right lung base markings are fractionally increased but this may simply be differences in technique. Right lung base can be monitored on subsequent imaging.
[2018-06-21] MEDS: ARFORMOTEROL TARTRATE 15 MCG/2 ML VIAL.NEB NEB SCH ×2 (08:28→20:02)
--- NOTE | 2018-06-21 08:37 | P.PN ---
Subjective Date of Service: 06/21/18 Primary Care Provider: Dr. Montgomery(Hospitalist covering); Pulm-Dr. Charles; Card-Dr. Urias Chief Complaint: Respiratory failure Patient's condition is stable became agitated yesterday and had to be put back on propofol hemodynamically stable Review of Systems is unable to be obtained Physical Examination - Vital Signs Temperature: 97.1 F Blood Pressure: 160/60 Pulse: 78 Respirations: 15 Pulse Ox (%): 97 - Physical Exam General: Comatose Respiratory: Clear to auscultation bilaterally, Diminished Cardiovascular: No edema, Normal S1 S2 - Studies Microbiology Data (last 24 hrs): 06/19/18 14:45 Blood - Blood Anaerobic Blood Culture - Final 06/19/18 14:30 Blood - Blood Anaerobic Blood Culture - Final Medications List Reviewed: Yes Assessment & Plan - Problems (Diagnosis) (1) Respiratory failure with hypercapnia Current Visit: Yes Status: Acute Plan: Patient admitted with acute on chronic respiratory failure plan to wean off and extubate today labs reviewed sputum cultures ordered no clinical evidence of sepsis Qualifiers: Chronicity: acute on chronic Qualified Code(s): J96.22 - Acute and chronic respiratory failure with hypercapnia Physician Review Additional Text: Impression: Acute encephalopathy likely secondary to acute on chronic respiratory failure with hypercapnia and hypoxia along with acute COPD exacerbation with history of severe COPD requiring home oxygen. Respiratory acidosis improving Acute on chronic renal failure High risk for aspiration pneumonia Hypertension CAD PVD Anemia likely of chronic disease Tobacco abuse Alcohol use History of throat cancer/breast cancer Plan: Patient continues to be intubated and sedated. Pulmonology consulted. Patient will be weaned off ventilator. Will continue with COPD treatment including IV steroids. Respiratory acidosis significantly improved. CT scan brain unremarkable. Patient on IV antibiotic therapy for broader coverage due to encephalopathy. Blood cultures, urine and sputum cultures obtained. Will recheck chest x-ray today. Will provide medication for hypertension. Patient on PPI. Patient also on thiamine due to history of alcohol use. Patient still smokes regularly. Anemia stable at this time. Will continue with DVT prophylaxis. Cardiology consulted to further monitor and assist. Await echocardiogram. Nephrology consulted due to acute on chronic renal failure. Renal ultrasound pending. Patient remains in soft restraints. Encephalopathy likely related to acute on chronic respiratory failure. If this persists patient may require MRI brain and EEG.
[2018-06-21 08:58] LABS: Anisocytosis 2+; Blood Morphology Comment NOTED (NOT SEEN); Hypochromasia 1+; Platelet Estimate ADEQ
[2018-06-21] MEDS: ENOXAPARIN 30 MG/0.3 ML SQ SCH (09:00)
[2018-06-21] MEDS: FAMOTIDINE 20 MG/2 ML VIAL IV SCH ×2 (09:01→20:20)
[2018-06-21] MEDS: THIAMINE 200 MG/2 ML INJ IVP SCH (09:02)
[2018-06-21] MEDS: Meropenem 1,000 MG in NA CHLORIDE 0.9% 100 ML IV SCH ×2 (09:02→20:21)
[2018-06-21] MEDS: HYDRALAZINE HCL 20 MG/ML VIAL IV PRN ×3 (09:17→23:12)
[2018-06-21] MEDS ORDERED: VANCOMYCIN 1.25 GM in NA CHLORIDE 0.9% 500 ML IV SCH (10:00)
--- NOTE | 2018-06-21 11:18 | P.PN ---
Subjective Date of Service: 06/21/18 Primary Care Provider: Dr. Montgomery(Hospitalist covering); Pulm-Dr. Charles; Card-Dr. Urias Chief Complaint: Respiratory failure Subjective: Other (Patient intubated and slightly sedated.) Physical Examination - Vital Signs Temperature: 97.1 F Blood Pressure: 160/60 Pulse: 78 Respirations: 15 Pulse Ox (%): 97 - Physical Exam General: Other (Patient intubated and slightly to sedated. Slight improvement noted.) HEENT: Atraumatic Neck: Supple, Other (Endo trach tube in place) Respiratory: Clear to auscultation bilaterally, Normal air movement Cardiovascular: Normal pulses, Regular rate/rhythm Gastrointestinal: Normal bowel sounds, Soft and benign, Non-distended, No tenderness, No masses, No rebound, No guarding Musculoskeletal: No erythema, No tenderness, No warmth Integumentary: No erythema, No warmth, No cyanosis Neurological: Normal strength at 5/5 x4 extr, Normal tone - Studies Microbiology Data (last 24 hrs): 06/19/18 14:45 Blood - Blood Anaerobic Blood Culture - Final 06/19/18 14:30 Blood - Blood Anaerobic Blood Culture - Final Medications List Reviewed: Yes Assessment & Plan Discharge Plan: Other (Skilled versus home health) Plan to discharge in: Greater than 2 days - Code Status/Comfort Care Code Status Assessed: Yes Physician Review Additional Text: Impression: Acute encephalopathy likely secondary to acute on chronic respiratory failure with hypercapnia and hypoxia along with acute COPD exacerbation with history of severe COPD requiring home oxygen. Respiratory acidosis, improving Acute on chronic renal failure, improved/back to baseline High risk for aspiration pneumonia Hypertension CAD PVD Anemia likely of chronic disease Tobacco abuse Alcohol use History of throat cancer/breast cancer Plan: Patient continues to improve. Patient intubated and slightly sedated. Pulmonology plans to wean her off ventilator. Patient will likely need noninvasive ventilator in the future. Patient may require skilled placement as well. This was cuss with family. This can be further addressed if her condition is slow to improved. Respiratory acidosis resolved. CT scan brain unremarkable. If her encephalopathy continues patient may require MRI. Otherwise stable. Patient on antibiotic therapy to cover for possible aspiration pneumonia. Patient has hypertension. Will continue with medication IV as needed. Patient with CAD. Slight elevation in troponin likely from stress related to acute respiratory failure. Cardiology consulted. No cardiac intervention needed at this time. Await echocardiogram. Patient with acute on chronic renal disease. This has resolved. Patient appears to be at her baseline level. Renal ultrasound unremarkable. Nephrology consulted. Patient with mild anemia. Likely of chronic disease. Patient on DVT prophylaxis. Patient with history of tobacco and alcohol use. Overall stable. Will encourage cessation. I will turn the service over to Dr. Montgomery who is the attending physician and sees the patient regularly. I will keep him updated on the current status. Time Spent Managing Pts Care (In Minutes): 55
[2018-06-21 11:51] LABS: Arterial Blood Carboxyhemoglob 1.4 % (0-1.5); Blood Gas Oxyhemoglobin 89.7 % (94-97); Blood O2 Saturation 91.8 % (92-98.5)
--- NOTE | 2018-06-21 15:46 | PN ---
Date of Progress Note: 06/21/2018 Subjective: Ms. Benson was seen on 06/20/2018 for respiratory failure. She was admitted on 06/19/20 18. The patient has a history of COPD and congestive heart failure. Remains intubated, oxygenating well. She is in sinus rhythm. Her blood pressure is adequate. She is afebrile. She continues to r eceive her antibiotics as well as COPD treatment. An echocardiogram is pending today. We will see w hat the echo shows prior to making any final decisions. The patient is diuresing well without any di uretic at this point. CINDY/EDUARDO Voice ID: [id number] Report ID: [id number]
[2018-06-21] MEDS: LORazepam 2 MG/ML VIAL IV PRN (16:45)
--- NOTE | 2018-06-21 18:07 | CON ---
History Of Present Illness: A 78-year-old lady admitted via the ER by EMS for altered mental status. She was found unresponsive. She was diagnosed with severe respiratory acidosis. She has a history of severe COPD and on home oxygen. She has a history of coronary artery disease, PVD, hypertension, CRD, and depression. Her O2 was very low when she came in, 52%. She was given BiPAP. She is now i ntubated in the ICU, and she has been weaned off today. I was called because there is some fluid bet ween the right kidney and the liver. They are not really sure there was renal mass, but will need to do a CT scan that is plain. Her renal function is poor so not able to do contrast. Once she is ext ubated and stable, I believe we can do the CT scan. Allergies: TO CODEINE AND PERINDOPRIL. Home Medications: Celexa, Lasix, levothyroxine, metoprolol, Lyrica, Ambien, alendronate, Plavix, Cre stor, Ultram, losartan, Daliresp, vitamin D, folic acid, b6, B12, B2, hydralazine, Tylenol, albuterol tartrate,. benzonatate, Spiriva, prednisone, Levaquin. Past Medical History: Breast cancer, throat cancer, hypertension, hypothyroidism, COPD, oxygen-depen dent, peripheral vascular disease, carotid artery disease, CHF, hyperlipidemia, neuropathy, tobacco a buse, hysterectomy, hemorrhoidectomy, radiation to vocal cord, stents to lower extremity and carotids , bilateral eye surgery, left-sided mastectomy, chemotherapy. Psychosocial History: Personal history, . Has children. Does not work. Family History: Father has heart disease. Mother, cancer. Sister has cancer and . Brother has heart disease and . Social History: Heavy smoker, greater than 10 cigarettes per day. Alcohol use, yes. Drug use, no. Caffeine use, yes. Resides at home. Review of Systems: A 10-point review of systems as mentioned above. The patient is intubated, unable to talk. Physical Examination: General: She is intubated. HEENT: Atraumatic, normocephalic. Respiratory: Clear. Cardiovascular: S1, S2. Gastrointestinal: Soft. Musculoskeletal: No edema, no tenderness. Skin: No rashes. Neurologic: Intubated. Laboratory Studies: White count up from 9.0 to 14.6 over the last 24 hours. H and H 10.5 and 32.9, platelet 242. Blood gas, pH 7.44, pCO2 39, pO2 66, bicarb 26, base excess 2.1, oxyhemoglobin 89. AB G O2 to measured was 92%. Chemistry creatinine now normalized at 0.8. GFR 70. BUN is 20. Her urin e test shows clear yellow urine, pH 6.5, specific gravity 1.025, ketone 1+, blood 3+, nitrite negativ e, esterase negative, rbc's 5-10 in the Mccain catheter. Assessment: Fluid between Avila's pouch and the liver. Now that her creatinine is normal, I thin k it would be best to image her with abdominal CT scan with contrast to evaluate this area more clear ly. MITCH/EDUARDO Voice ID: [id number] Report ID: [id number]
[2018-06-22] MEDS: METHYLPREDNISOLONE 125 MG INJ IV SCH ×3 (00:38→16:10)
[2018-06-22] MEDS: FENTANYL CITR 100 MCG/2 ML IV PRN (01:18)
[2018-06-22] MEDS: IPRATROPIUM BROM 0.5MG/2.5ML NEB SCH ×4 (02:00→20:00)
--- NOTE | 2018-06-22 03:47 | PN ---
Date of Progress Note: 06/21/2018 Chief Complaint: Acute on chronic kidney injury, nonoliguric. History Of Present Illness: The patient was found to have moderately severe prerenal azotemia. BUN was 22, creatinine 1.4. The patient has underlying chronic kidney disease stage 3. Baseline creatinine was ranging and from 1.1 to 1.2. She presented with altered mental status. She was found to have mild element of rhabdomyolysis. CK level was up to 539. She was screened for hyperammonemia. Ammonia level was 10. The patient developed encephalopathy due to respiratory failure with hypercarbic hypoxemic respiratory failure, severe respiratory acidosis. She was intubated. She has an advanced COPD. The patient was found to have a questionable mass of the right kidney and loculated fluid related to kidney structure in between right kidney and the liver. She is undergoing workup and she is to have CT scan with IV contrast. The patient will need Mucomyst and IV fluids to prevent contrast induced nephropathy. An order was discussed with the ICU nurse to start Mucomyst 1200 mg twice a day q.12 hours for 2 days and to continue IV fluids 100 cc/hour. The patient has been treated with IV fluids for acute on chronic kidney injury. Review of Systems: The patient is intubated, cannot provide review of systems. Physical Examination: Lungs: Clear to auscultation bilaterally. Heart: S1, S2. Abdomen: Soft. Benign. Extremities: No edema. Impression And Plan: 1. Acute on chronic kidney injury. Renal function has improved over the last 48 hours. Monitor electrolytes closely. 2. Elevated CK level. Mild element of rhabdomyolysis. Continue IV fluids. 3. Questionable right kidney mass. The patient is undergoing workup with CT scan. 4. Proteinuria. Monitor proteinuria panel . 5. Respiratory acidosis. The patient is intubated. Monitor ABG. 6. Chronic obstructive pulmonary disease exacerbation. Treatment per Pulmonary team. I spent total 36 min including 25 min to coordinate care plan. ELIZABETH/EDUARDO Voice ID: [id number] Report ID: [id number] TOÑITO
[2018-06-22] MEDS: LORazepam 2 MG/ML VIAL IV PRN (03:58)
[2018-06-22 05:35] LABS: Albumin 2.6 g/dL (3.4-5.0); Bilirubin Total 0.4 mg/dL (0.2-1.0); Magnesium 2.5 mg/dL (1.8-2.4); Potassium 4.4 mmol/L (3.5-5.1)
[2018-06-22 06:11] LABS: Absolute Lymphocytes (CBC) 0.1 K/uL (0.7-4.9); Absolute Monocytes 0.2 K/uL (0.1-1.3); Absolute Neutrophil 11.2 K/uL (1.8-8.0); Basophils % 0.3 % (0-1.3); Hematocrit 33.9 % (36.0-45.0); Lymphocytes % 1.2 % (15.3-44.8); MCH 24.9 pg (27.0-35.0); MPV 8.3 fL (7.6-11.3); Monocytes % 1.8 % (3.3-12.3); RBC Red Blood Cell Count 4.29 M/uL (3.86-4.86)
[2018-06-22] MEDS: HYDRALAZINE HCL 20 MG/ML VIAL IV PRN (06:31)
[2018-06-22 06:45] LABS: Anisocytosis SLIGHT; Blood Morphology Comment NOTED (NOT SEEN); Platelet Estimate ADEQ
[2018-06-22] MEDS: ARFORMOTEROL TARTRATE 15 MCG/2 ML VIAL.NEB NEB SCH ×2 (08:16→20:00)
[2018-06-22] MEDS: THIAMINE 200 MG/2 ML INJ IVP SCH (08:19)
[2018-06-22] MEDS: NA CHLORIDE 0.9% 1,000 ML IV SCH ×2 (08:19→10:00)
[2018-06-22] MEDS: ENOXAPARIN 30 MG/0.3 ML SQ SCH (08:20)
[2018-06-22] MEDS: Meropenem 1,000 MG in NA CHLORIDE 0.9% 100 ML IV SCH ×2 (08:22→20:50)
--- NOTE | 2018-06-22 08:31 | P.PN ---
Subjective Date of Service: 06/22/18 Primary Care Provider: Dr. Montgomery(Hospitalist covering); Pulm-Dr. Charles; Card-Dr. Urias Chief Complaint: Respiratory failure Patient is improving more alert responsive and cooperative today Review of Systems is unable to be obtained Physical Examination - Vital Signs Temperature: 97.6 F Blood Pressure: 176/69 Pulse: 94 Respirations: 24 Pulse Ox (%): 96 - Physical Exam General: Alert, Cooperative Respiratory: Expiratory wheezes Cardiovascular: No edema, Normal S1 S2 - Studies Medications List Reviewed: Yes Assessment & Plan - Problems (Diagnosis) (1) Respiratory failure with hypercapnia Onset Date: 06/21/18 Current Visit: Yes Status: Acute Plan: Patient is doing much better more alert responsive cooperative plan to wean and extubate may need postoperative BiPAP no evidence of sepsis medications reviewed plan to wean and extubate today Qualifiers: Chronicity: acute on chronic Qualified Code(s): J96.22 - Acute and chronic respiratory failure with hypercapnia Physician Review Additional Text: Impression: Acute encephalopathy likely secondary to acute on chronic respiratory failure with hypercapnia and hypoxia along with acute COPD exacerbation with history of severe COPD requiring home oxygen. Respiratory acidosis, improving Acute on chronic renal failure, improved/back to baseline High risk for aspiration pneumonia Hypertension CAD PVD Anemia likely of chronic disease Tobacco abuse Alcohol use History of throat cancer/breast cancer Plan: Patient continues to improve. Patient intubated and slightly sedated. Pulmonology plans to wean her off ventilator. Patient will likely need noninvasive ventilator in the future. Patient may require skilled placement as well. This was cuss with family. This can be further addressed if her condition is slow to improved. Respiratory acidosis resolved. CT scan brain unremarkable. If her encephalopathy continues patient may require MRI. Otherwise stable. Patient on antibiotic therapy to cover for possible aspiration pneumonia. Patient has hypertension. Will continue with medication IV as needed. Patient with CAD. Slight elevation in troponin likely from stress related to acute respiratory failure. Cardiology consulted. No cardiac intervention needed at this time. Await echocardiogram. Patient with acute on chronic renal disease. This has resolved. Patient appears to be at her baseline level. Renal ultrasound unremarkable. Nephrology consulted. Patient with mild anemia. Likely of chronic disease. Patient on DVT prophylaxis. Patient with history of tobacco and alcohol use. Overall stable. Will encourage cessation. I will turn the service over to Dr. Montgomery who is the attending physician and sees the patient regularly. I will keep him updated on the current status.
--- NOTE | 2018-06-22 08:54 | ECHO ---
HEIGHT: 5 ft 5 in WEIGHT: 150 lb 6.4 oz DATE OF STUDY: 06/21/[address]: Minh Patton DO 2-DIMENSIONAL: YES M.MODE: YES DOPPLER: YES COLOR FLOW: YES TDS: YES PORTABLE: YES DEFINITY: NO BUBBLE STUDY: NO DIAGNOSIS: ACUTE ENCEPHALOPATHY, RESPIRATORY FAILURE, HISTORY OF CORONARY ARTERY DISEASE, HYPERTENSION AND PVD CARDIAC HISTORY: CATHERIZATION: NO SURGERY: NO PROSTHETIC VALVE: NO PACEMAKER: NO MEASUREMENTS (cm) DIASTOLIC (NORMALS) SYSTOLIC (NORMALS) IVSd 1.0 (0.6-1.2) LA Diam 3.7 (1.9-4.0) LVEF 53% LVIDd 4.0 (3.5-5.7) LVIDs 2.9 (2.0-3.5) %FS 24% LVPWd 1.1 (0.6-1.2) Ao Diam 2.7 (2.0-3.7) 2 DIMENSIONAL ASSESSMENT: RIGHT ATRIUM: NORMAL LEFT ATRIUM: NORMAL RIGHT VENTRICLE: NORMAL LEFT VENTRICLE: NORMAL TRICUSPID VALVE: NORMAL MITRAL VALVE: MITRAL ANNULAR CALCIFICATION PULMONIC VALVE: NORMAL AORTIC VALVE: NORMAL PERICARDIAL EFFUSION: NONE AORTIC ROOT: NORMAL LEFT VENTRICULAR WALL MOTION: NORMAL DOPPLER/COLOR FLOW: MILD TRICUSPID AND MITRAL REGURGITATION. COMMENTS: MILD TRICUSPID AND MITRAL REGURGITATION. NO PULMONARY HYPERTENSION. MITRAL ANNULAR CALCIFICATION. NORMAL LEFT VENTRICULAR SIZE AND FUNCTION. NO EFFUSION. TECHNOLOGIST: Oliver SERNA
[2018-06-22] MEDS: FAMOTIDINE 20 MG/2 ML VIAL IV SCH ×2 (09:42→20:50)
[2018-06-22 12:41] LABS: HIV 1/2 Antibody Diff Not indicated.; HIV AG/AB 4TH GEN Non-reactive (Non-reactive)
--- NOTE | 2018-06-22 15:46 | PN ---
Date of Progress Note: 06/22/2018 Subjective: The patient was admitted with chronic obstructive pulmonary disease exacerbation, respir atory distress. The patient being intubated. Objective: Vital Signs: When I saw the patient, blood pressure 176/69, pulse of 94, afebrile. The patient had good urine output of 900. Chest: Crackles with mild wheezing bilateral. Heart: S1, S2. Regular. Abdomen: Soft, nontender. Extremities: Trace edema. Laboratory Data: WBC 11.5, H and H 10.7/33.9, platelet 210. Sodium 142, potassium 4.4, bicarb 26, B UN 26, creatinine 0.7, calcium 6.6, magnesium 2.5. TSH 0.1. Medications: Current medications the patient on its include: 1.Meropenem. 2.Albuterol. 3.Lovenox. 4.Hydralazine. 5.Tylenol. 6.Sedation. 7.IV fluid, normal saline at 50 per hour. 8.Fentanyl. Diagnostic Data: Chest x-ray showing marginal cardiomegaly. No significant congestion, emphysematou s change. Assessment And Plan: 1.Acute kidney injury secondary to prerenal, recovered, resolved, back to baseline. 2.Hypercapnic respiratory failure with metabolic alkalosis. Continue current treatment. Decrease I V fluid to 50 per hour. 3.Hypocalcemia. We will send for vitamin D and PTH. I am going to start the patient on Tums and we will follow up the patient. 4.Respiratory failure secondary to chronic obstructive pulmonary disease exacerbation as by the Pilar randle. Follow up with Pulmonary. JOSH Voice ID: [id number] Report ID: [id number]
--- NOTE | 2018-06-22 20:35 | PN ---
Subjective: Ms. Benson is extubated, resting comfortable in the ICU, bed 1. Objective: Vital Signs: Pulse rate 105, respiratory rate 27, blood pressure 171/69, 98% saturations. Nasal cannula 2 L. Laboratory Data: White count 11.5, H and H 10.7 and 33.9, platelet count 210, and blood gas is pH 7.44, pCO2 39, PO2 66, base 26, inspired O2 24. Chemistry, her calcium is low at 6.6, creatinine is still normal at 0.7. Sodium 142, potassium 4.4, chloride 110, carbon dioxide 26, BUN 26. Assessment And Plan: S/P respiratory acidosis with hypercapnia, much more stable now with some acute encephalopathy secondary to respiratory failure and chronic obstructive pulmonary disease exacerbation. Her kidneys have returned back to normal. They will be starting Mucomyst tonight, for CT scan tomorrow, to evaluate the fluid between the liver and kidney, so I will follow up when those results are done. MITCH/EDUARDO Voice ID: [id number] Report ID: [id number] MTDJuwan
[2018-06-22] MEDS: CALCIUM CARBONATE 500 MG TAB PO SCH (20:50)
[2018-06-22] MEDS: ACETYLCYST 20% 800 MG/4 ML VIAL PO SCH (20:52)
[2018-06-23] MEDS: HYDRALAZINE HCL 20 MG/ML VIAL IV PRN ×4 (00:15→22:29)
[2018-06-23] MEDS: METHYLPREDNISOLONE 125 MG INJ IV SCH ×2 (00:16→08:20)
[2018-06-23] MEDS: IPRATROPIUM BROM 0.5MG/2.5ML NEB SCH ×4 (01:18→19:50)
[2018-06-23 04:35] LABS: HBsAG Nonreactive (Nonreactive); Hepatitis A IgM Antibody Nonreactive
[2018-06-23 05:08] LABS: Absolute Lymphocytes (CBC) 0.2 K/uL (0.7-4.9); Absolute Monocytes 0.3 K/uL (0.1-1.3); Absolute Neutrophil 10.5 K/uL (1.8-8.0); Basophils % 0.1 % (0-1.3); Hematocrit 35.9 % (36.0-45.0); Lymphocytes % 1.5 % (15.3-44.8); MCV 79.6 fL (80-100); MPV 8.5 fL (7.6-11.3); Monocytes % 2.9 % (3.3-12.3); RBC Red Blood Cell Count 4.51 M/uL (3.86-4.86)
[2018-06-23 05:28] LABS: ALT/SGPT 35 U/L (12-78); AST/SGOT 38 U/L (15-37); Albumin 2.8 g/dL (3.4-5.0); Alkaline Phosphatase 38 U/L (45-117); BUN Blood Urea Nitrogen 25 mg/dL (7-18); Bicarbonate 28 mmol/L (21-32); Bilirubin Total 0.3 mg/dL (0.2-1.0); Glucose Level 138 mg/dL (74-106); Magnesium 2.7 mg/dL (1.8-2.4); Potassium 4.6 mmol/L (3.5-5.1); Protein, Total 5.2 g/dL (6.4-8.2); Sodium Level 143 mmol/L (136-145)
[2018-06-23] MEDS: NA CHLORIDE 0.9% 1,000 ML IV SCH (05:45)
[2018-06-23] MEDS: ARFORMOTEROL TARTRATE 15 MCG/2 ML VIAL.NEB NEB SCH ×2 (07:32→19:50)
[2018-06-23] MEDS: ENOXAPARIN 30 MG/0.3 ML SQ SCH (08:18)
[2018-06-23] MEDS: CALCIUM CARBONATE 500 MG TAB PO SCH ×2 (08:19→22:19)
[2018-06-23] MEDS: Meropenem 1,000 MG in NA CHLORIDE 0.9% 100 ML IV SCH (08:19)
[2018-06-23] MEDS: ACETYLCYST 20% 800 MG/4 ML VIAL PO SCH ×2 (08:19→23:15)
[2018-06-23] MEDS: FAMOTIDINE 20 MG/2 ML VIAL IV SCH (08:20)
[2018-06-23] MEDS: THIAMINE 200 MG/2 ML INJ IVP SCH (08:20)
--- NOTE | 2018-06-23 12:10 | RAD REPORT ---
EXAM DESCRIPTION: CT - Abdomen Pelvis W Contrast - 06/23/2018 11:41 am CLINICAL HISTORY: Abdominal pain COMPARISON: Abdomen ultrasound June 20, CT imaging May 05 TECHNIQUE: Biphasic, helical CT imaging of the abdomen and pelvis was performed following 100 ml non -ionic IV contrast. Oral contrast was administered. All CT scans are performed using dose optimization technique as appropriate and may include automated exposure control or mA/KV adjustment according to patient size. FINDINGS: Small to moderate bilateral pleural effusions are present. Bilateral partial atelectasis o f each lower lobe. No pericardial thickening or effusion. There is fluid retention throughout the sub cutaneous fatty tissues of the abdomen and pelvis. The liver, spleen, and pancreas show no suspicious findings. Gallbladder and biliary tree are also wi thout suspicious finding. Left kidney is much smaller than the right. Right kidney shows a normal colon medullary enhancement p attern. Left kidney shows cyst and cortical enhancement on venous phase imaging. No hydronephrosis. N o obstruction. Bilateral renal artery stents are in place. There is dense arterial tree calcification s. No suspicious renal parenchymal mass. Urinary bladder is fully contracted around a Mccain catheter. No gastric dilatation or wall thickening. Small bowel loops are prominent but nonspecific. No small b owel obstruction. Large stool volume is present without acute No free air or pneumatosis. There is a punctate focus of air in the subcutaneous fat lower right abdo men probably an injection site for medication. Small amount of free intraperitoneal fluid is present . There is an overall edematous appearance to the peritoneal and retroperitoneal. The fluid present n ear the right kidney on recent ultrasound imaging is believed be part of an overall fluid retention p attern and not a renal specific abnormality. No adrenal abnormality. No suspicious bony findings. Disc and bony degenerative changes are present. Patient has very extensive vascular disease. Aortic stenosis is present at the renal vascular level. Renal artery stents are present. 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 Patient has a fem-fem bypass graft. IMPRESSION: The small quantity of fluid seen adjacent to the right kidney on prior sonography is par t of an overall fluid retention pattern seen throughout the peritoneal, retroperitoneal and subcutane ous fatty tissues. This is not seen as the renal specific abnormality. Patient has bilateral pleural effusions. Left kidney is much smaller than the normal size right kidney and shows delayed function. No hydronep hrosis. This is probably related to arterial disease. No acute right renal parenchymal process. No acute bowel finding. No surgically emergent finding.
--- NOTE | 2018-06-23 12:11 | P.PN ---
Subjective Date of Service: 06/23/18 Primary Care Provider: Dr. Montgomery(Hospitalist covering); Pulm-Dr. Charles; Card-Dr. Urias Chief Complaint: Respiratory failure Patient is doing well extubated alert responsive cooperative Review of Systems General: Weakness Respiratory: Shortness of Breath Physical Examination - Vital Signs Temperature: 97.1 F Blood Pressure: 171/72 Pulse: 99 Respirations: 29 Pulse Ox (%): 98 - Physical Exam General: Alert, Oriented x3 Respiratory: Clear to auscultation bilaterally, Diminished Cardiovascular: No edema, Normal S1 S2 - Studies Medications List Reviewed: Yes Assessment & Plan - Problems (Diagnosis) (1) Chronic obstructive lung disease COPD Current Visit: No Status: Acute Plan: Patient is 78 years of age admitted with respiratory failure she was extubated yesterday doing much better today no evidence of an infection transfer to the floor change to p.o. prednisone resume home medications physical therapy regular diet Dc Mccain catheter medications reviewed and reconciled cultured the so far negative I will arrange for a noninvasive vent at patient now has chronic stable respiratory failure she will benefit from noninvasive ventilator to prevent recurrent hospital admissions Physician Review Additional Text: Impression: Acute encephalopathy likely secondary to acute on chronic respiratory failure with hypercapnia and hypoxia along with acute COPD exacerbation with history of severe COPD requiring home oxygen. Respiratory acidosis, improving Acute on chronic renal failure, improved/back to baseline High risk for aspiration pneumonia Hypertension CAD PVD Anemia likely of chronic disease Tobacco abuse Alcohol use History of throat cancer/breast cancer Plan: Patient continues to improve. Patient intubated and slightly sedated. Pulmonology plans to wean her off ventilator. Patient will likely need noninvasive ventilator in the future. Patient may require skilled placement as well. This was cuss with family. This can be further addressed if her condition is slow to improved. Respiratory acidosis resolved. CT scan brain unremarkable. If her encephalopathy continues patient may require MRI. Otherwise stable. Patient on antibiotic therapy to cover for possible aspiration pneumonia. Patient has hypertension. Will continue with medication IV as needed. Patient with CAD. Slight elevation in troponin likely from stress related to acute respiratory failure. Cardiology consulted. No cardiac intervention needed at this time. Await echocardiogram. Patient with acute on chronic renal disease. This has resolved. Patient appears to be at her baseline level. Renal ultrasound unremarkable. Nephrology consulted. Patient with mild anemia. Likely of chronic disease. Patient on DVT prophylaxis. Patient with history of tobacco and alcohol use. Overall stable. Will encourage cessation. I will turn the service over to Dr. Montgomery who is the attending physician and sees the patient regularly. I will keep him updated on the current status.
[2018-06-23] MEDS ORDERED: HYDRALAZINE HCL 25 MG TABLET PO PRN (15:08)
[2018-06-23] MEDS ORDERED: TRAMADOL HCL 50 MG TAB PO PRN (15:08)
[2018-06-23] MEDS ORDERED: ACETAMINOPHEN PO PRN (15:08)
--- NOTE | 2018-06-23 15:58 | PN ---
Date of Progress Note: 06/23/2018 Subjective: The patient extubated. The patient still has some swelling. The patient maintained on IV fluid. More awake today. Objective: Vital Signs: Blood pressure 168/66, pulse of 96, afebrile. The patient had good urine o utput of 800. Chest: Faint crackles on the base. Heart: S1, S2. Regular. Abdomen: Soft. Nontender. Extremities: Plus edema. Laboratory Data: WBC 11, H and H 11.3/35.9. Sodium 143, potassium 4.6, bicarb 28, BUN 25, creatinin e 0.5, calcium 7.2, magnesium 2.7, albumin 2.8, corrected calcium of 8. Current Medications: The patient on its include, 1.Levaquin 500 daily. 2.Lovenox. 3.Calcium carbonate 500 b.i.d. 4.Losartan 100 daily. 5.Metoprolol 50 b.i.d. 6.Hydralazine p.r.n. 7.Prednisone 20. 8.Normal saline at 50 per hour. Assessment And Plan: 1.Acute kidney injury secondary to prerenal, recovered, resolved. 2.Hypertension: Control not optimal. I am going to go ahead and add for the patient Norvas for be tter blood pressure control. We will discontinue IV fluid. 3.Hypocalcemia with possible primary hyperparathyroidism, giving the elevation in the parathyroid ho rmone. We still awaiting for the vitamin D level. I am going to do a 24 hour collection for the shane cium to further evaluate the primary hyperparathyroidism and will repeat parathyroid hormone. 4.Respiratory failure. Follow up with the primary. The patient had been extubated. 5.Hypocalcemia secondary to possible primary hyperparathyroidism. We will follow up, further workup as above. NINI/EDUARDO Voice ID: [id number] Report ID: [id number]
[2018-06-23] MEDS ORDERED: ACETAMINOPHEN 325 MG TABLET PO PRN (16:26)
--- NOTE | 2018-06-23 19:47 | PN ---
Date of Progress Note: 06/22/2018 The patient seen tonight after extubation. She is doing quite well actually, stable vital signs othe r than fluctuating of blood pressure. Her breathing is controlled. We will continue to monitor and perhaps transfer her to floor care tomorrow. HR/MODL Voice ID: [id number] Report ID: [id number]
--- NOTE | 2018-06-23 19:47 | PN ---
Date of Progress Note: 06/23/2018 The patient continues to improve since her extubation. Her blood pressure has been slightly fluctuan t. We will go back to her normal blood pressure regimen and transfer her to floor care. She has bee n cleared by Pulmonology to go to floor care and the addition of Lasix regimen may help with the over all fluid pattern, which was evident on the CT. The patient has been up and did experience significa nt exertional dyspnea. Therefore, arrangements are being made for noninvasive respiratory treatment at home. The patient also restarted on her thyroid and supportive medications. HR/MODL Voice ID: [id number] Report ID: [id number]
--- NOTE | 2018-06-23 20:50 | PN ---
Subjective: Ms. Benson is being transferred to the floor, room 402. Her CT scan was done with contr ast showing very extensive vascular diseases, aortic stenosis, occlusion of the right side of the medardo ac vasculature with fem-fem bypass, and small quantity of fluid adjacent to the right kidney. There was on prior sonogram, it is part of an overall fluid retention pattern, seen now through the periton eum, retroperitoneal and subcutaneous fatty tissues. The fluid is not specific to the kidney. She d oes not seem to have any significant kidney issues causing this. The left kidney is much smaller pepe n the right kidney and shows some delay function, but no hydronephrosis, no obstruction, most likely medical renal disease, so therefore she does not need any further urological intervention and I will sign off the case for now. MITCH/EDUARDO Voice ID: [id number] Report ID: [id number]
[2018-06-23] MEDS ORDERED: predniSONE 20 MG TAB PO SCH (21:00)
[2018-06-23] MEDS ORDERED: PREGABALIN 50 MG CAP PO SCH (21:00)
[2018-06-23 21:43] LABS: Albumin, (SPE) 2.9 g/dL (3.8-4.8); Alpha-1-Globulins 0.3 g/dL (0.2-0.3); Alpha-2-Globulins 0.5 g/dL (0.5-0.9); Gamma Globulins 0.4 g/dL (0.8-1.7); INTERPRETATION REPORT
[2018-06-23] MEDS: PREGABALIN 50 MG CAP PO SCH (22:18)
[2018-06-23] MEDS: ROSUVASTATIN 10 MG TAB PO SCH (22:19)
[2018-06-24] MEDS: IPRATROPIUM BROM 0.5MG/2.5ML NEB SCH ×4 (01:15→20:14)
[2018-06-24 04:59] LABS: Absolute Lymphocytes (CBC) 0.3 K/uL (0.7-4.9); Absolute Monocytes 0.9 K/uL (0.1-1.3); Absolute Neutrophil 10.9 K/uL (1.8-8.0); Basophils % 0.2 % (0-1.3); Hematocrit 35.6 % (36.0-45.0); Lymphocytes % 2.2 % (15.3-44.8); MCH 24.6 pg (27.0-35.0); MPV 8.1 fL (7.6-11.3); Monocytes % 7.2 % (3.3-12.3); RBC Red Blood Cell Count 4.45 M/uL (3.86-4.86)
[2018-06-24 05:20] LABS: ALT/SGPT 34 U/L (12-78); AST/SGOT 28 U/L (15-37); Albumin 2.7 g/dL (3.4-5.0); Alkaline Phosphatase 39 U/L (45-117); BUN Blood Urea Nitrogen 26 mg/dL (7-18); Bicarbonate 30 mmol/L (21-32); Bilirubin Total 0.3 mg/dL (0.2-1.0); Glucose Level 102 mg/dL (74-106); Magnesium 2.4 mg/dL (1.8-2.4); Sodium Level 141 mmol/L (136-145)
[2018-06-24] MEDS: LEVOTHYROXINE SOD 0.1 MG TAB PO SCH (06:30)
[2018-06-24] MEDS: ARFORMOTEROL TARTRATE 15 MCG/2 ML VIAL.NEB NEB SCH ×2 (08:00→20:14)
[2018-06-24] MEDS ORDERED: FUROSEMIDE 20 MG TABLET PO SCH (09:00)
[2018-06-24] MEDS ORDERED: HOME MED 1 EA UNK (Tiotropium Bromide [Spiriva Respimat] 2 PUFF) IH SCH (09:00)
[2018-06-24] MEDS ORDERED: METOPROLOL TAR 50 MG TAB PO SCH (09:00)
[2018-06-24] MEDS ORDERED: LOSARTAN POTASSIUM 50 MG TABLET PO SCH (09:00)
[2018-06-24] MEDS ORDERED: ROSUVASTATIN CALCIUM 10 MG PO SCH (09:00)
[2018-06-24] MEDS ORDERED: HOME MED 1 EA UNK (Citalopram Hydrobromide [Citalopram Hbr] 40 MG) PO SCH (09:00)
[2018-06-24] MEDS ORDERED: PREGABALIN 50 MG PO SCH (09:00)
[2018-06-24] MEDS ORDERED: HOME MED 1 EA UNK (Losartan Potassium [Losartan Potassium] 100 MG) PO SCH (09:00)
[2018-06-24] MEDS: ENOXAPARIN 30 MG/0.3 ML SQ SCH (09:40)
[2018-06-24] MEDS: LOSARTAN POTASSIUM 50 MG TABLET PO SCH (09:41)
[2018-06-24] MEDS: CITALOPRAM 10 MG TABLET PO SCH (09:41)
[2018-06-24] MEDS: BENZONATATE 100 MG CAP PO SCH (09:41)
[2018-06-24] MEDS: CALCIUM CARBONATE 500 MG TAB PO SCH ×2 (09:42→20:03)
[2018-06-24] MEDS: AMLODIPINE 10 MG TAB PO SCH (09:42)
[2018-06-24] MEDS: levoFLOXacin 500 MG TAB PO SCH (09:42)
[2018-06-24] MEDS: predniSONE 20 MG TAB PO SCH (09:42)
[2018-06-24] MEDS: VITAMIN D 1000 UNIT TAB PO SCH (09:42)
[2018-06-24] MEDS: METOPROLOL TAR 50 MG TAB PO SCH (09:43)
[2018-06-24] MEDS: ACETYLCYST 20% 800 MG/4 ML VIAL PO SCH (09:44)
[2018-06-24] MEDS: ROFLUMILAST 500 MCG TABLET PO SCH (09:48)
[2018-06-24 11:59] LABS: Beta Globulin 24 HR Urine 0 %; Gamma Globulin, 24hr Urine 0 %; Interpretation: REPORT; Urine Alpha-2-Globulins, 24 Hr 0 %; Urine PEP Abn Protein Band1 REPORT; Urine Protein/Creat Ratio 24Hr 403 mg/g creat (<115); Urine Total Volume 24 Hours 700 mL
[2018-06-24 15:42] LABS: P-ANCA Anti-Myeloperoxidase Ab <1.0 AI (<1.0)
--- NOTE | 2018-06-24 15:46 | P.PN ---
Subjective Date of Service: 06/24/18 Primary Care Provider: Dr. Montgomery(Hospitalist covering); Pulm-Dr. Charles; Card-Dr. Urias Chief Complaint: COPD exacerbation Patient is doing better feeling weak Review of Systems General: Weakness Respiratory: Shortness of Breath Physical Examination - Vital Signs Temperature: 98.1 F Blood Pressure: 156/63 Pulse: 77 Respirations: 20 Pulse Ox (%): 93 - Physical Exam General: Alert, Cooperative Respiratory: Clear to auscultation bilaterally, Diminished, Friction rub Cardiovascular: Normal S1 S2 - Studies Microbiology Data (last 24 hrs): 06/19/18 14:30 Blood - Blood Aerobic Blood Culture - Final No growth in 5 days. 06/19/18 14:30 Blood - Blood Anaerobic Blood Culture - Final Medications List Reviewed: Yes Assessment & Plan - Problems (Diagnosis) (1) Chronic obstructive lung disease COPD Current Visit: No Status: Acute Plan: Patient is 78 years of age admitted with COPD exacerbation Kegel to have a noninvasive vent for home due to recurrent hospitalization labs reviewed patient to resume BiPAP while in the hospital patient appears to have some light fluid retention I have added hydrochlorothiazide Dc Lasix continue with physical therapy overall prognosis very poor Physician Review Additional Text: Impression: Acute encephalopathy likely secondary to acute on chronic respiratory failure with hypercapnia and hypoxia along with acute COPD exacerbation with history of severe COPD requiring home oxygen. Respiratory acidosis, improving Acute on chronic renal failure, improved/back to baseline High risk for aspiration pneumonia Hypertension CAD PVD Anemia likely of chronic disease Tobacco abuse Alcohol use History of throat cancer/breast cancer Plan: Patient continues to improve. Patient intubated and slightly sedated. Pulmonology plans to wean her off ventilator. Patient will likely need noninvasive ventilator in the future. Patient may require skilled placement as well. This was cuss with family. This can be further addressed if her condition is slow to improved. Respiratory acidosis resolved. CT scan brain unremarkable. If her encephalopathy continues patient may require MRI. Otherwise stable. Patient on antibiotic therapy to cover for possible aspiration pneumonia. Patient has hypertension. Will continue with medication IV as needed. Patient with CAD. Slight elevation in troponin likely from stress related to acute respiratory failure. Cardiology consulted. No cardiac intervention needed at this time. Await echocardiogram. Patient with acute on chronic renal disease. This has resolved. Patient appears to be at her baseline level. Renal ultrasound unremarkable. Nephrology consulted. Patient with mild anemia. Likely of chronic disease. Patient on DVT prophylaxis. Patient with history of tobacco and alcohol use. Overall stable. Will encourage cessation. I will turn the service over to Dr. Montgomery who is the attending physician and sees the patient regularly. I will keep him updated on the current status.
[2018-06-24] MEDS: hydroCHLOROthiazide 12.5 MG CAP PO SCH (17:21)
[2018-06-24] MEDS: NICOTINE 14 MG/PAT TD SCH (17:22)
[2018-06-24] MEDS: PREGABALIN 50 MG CAP PO SCH (20:03)
[2018-06-24] MEDS: ROSUVASTATIN 10 MG TAB PO SCH (20:06)
--- NOTE | 2018-06-24 21:30 | PN ---
Date of Progress Note: 06/24/2018 The patient continues to show slow improvement in her breathing and her overall condition is still qu ite weak. She had dyspnea with any effort. Appetite has improved somewhat. Her blood pressure is s till slightly elevated at times. Overall condition; however, has improved markedly since admission, and seems to be leveling off for her to be discharged at home on a noninvasive respirator. This should take a few days. Until then, the patient will be monitored and treated actively here a nd diuretic regimen has also been discussed with Dr. Charles and she does seem to have retained more fluid than usual. HR/MODL Voice ID: [id number] Report ID: [id number]
[2018-06-25] MEDS: IPRATROPIUM BROM 0.5MG/2.5ML NEB SCH ×4 (01:38→19:50)
--- NOTE | 2018-06-25 04:15 | PN ---
Date of Progress Note: 06/24/2018 Subjective: The patient was admitted with respiratory failure, intubated, extubated, feeling better, more awake today. Physical Examination: Vital Signs: Blood pressure 150/67, pulse 84. The patient had good urine output of 875. Chest: Crackles bilateral base. Heart: S1, S2. Regular. Abdomen: Soft, nontender. Extremities: Plus edema. Laboratory Data: WBC 12, H and H 11/35.6, platelets 250. Sodium 141, potassium 5, bicarb 30, BUN 26, creatinine 0.6, calcium 8.2, magnesium 2.3. Current Medications: Levaquin 500, albuterol, nicotine, Lovenox, calcium carbonate, Norvasc 10, hydralazine 25 t.i.d., metoprolol 50 b.i.d., citalopram, hydrochlorothiazide has been started today, breathing treatment, and prednisone . Assessment And Plan: 1. Acute kidney injury secondary to prerenal, recovered, resolved, slightly on the wet side. I am going to start the patient on gentle diuresis, and we will follow up the patient. 2. Hypertension, controlled, optimal. We will add Lasix, and we will follow up the patient. 3. Respiratory failure. Follow up with Pulmonary. The patient was extubated. 4. Hypocalcemia. Repeated PTH within normal limit. Vitamin D still pending. Corrected calcium within normal limit. Respond on calcium supplement. We will follow up. JOSH Voice ID: [id number] Report ID: [id number] TOÑITO
[2018-06-25] MEDS: LEVOTHYROXINE SOD 0.1 MG TAB PO SCH (05:02)
[2018-06-25] MEDS: ARFORMOTEROL TARTRATE 15 MCG/2 ML VIAL.NEB NEB SCH ×2 (07:45→19:49)
[2018-06-25] MEDS: levoFLOXacin 500 MG TAB PO SCH (08:45)
[2018-06-25] MEDS: CALCIUM CARBONATE 500 MG TAB PO SCH ×2 (08:45→21:04)
[2018-06-25] MEDS: NICOTINE 14 MG/PAT TD SCH (08:45)
[2018-06-25] MEDS: LOSARTAN POTASSIUM 50 MG TABLET PO SCH (08:45)
[2018-06-25] MEDS: hydroCHLOROthiazide 12.5 MG CAP PO SCH (08:45)
[2018-06-25] MEDS: METOPROLOL TAR 50 MG TAB PO SCH (08:45)
[2018-06-25] MEDS: AMLODIPINE 10 MG TAB PO SCH (08:45)
[2018-06-25] MEDS: predniSONE 20 MG TAB PO SCH (08:45)
[2018-06-25] MEDS: ROFLUMILAST 500 MCG TABLET PO SCH (08:45)
[2018-06-25] MEDS: VITAMIN D 1000 UNIT TAB PO SCH (08:45)
[2018-06-25] MEDS: ENOXAPARIN 30 MG/0.3 ML SQ SCH (08:45)
[2018-06-25] MEDS: BENZONATATE 100 MG CAP PO SCH (08:45)
[2018-06-25] MEDS: CITALOPRAM 10 MG TABLET PO SCH (08:45)
[2018-06-25] MEDS: FUROSEMIDE 20 MG/ 2ML VIAL IV SCH (08:45)
[2018-06-25] MEDS: PREGABALIN 50 MG CAP PO SCH (21:04)
[2018-06-25] MEDS: ROSUVASTATIN 10 MG TAB PO SCH (21:04)
--- NOTE | 2018-06-25 22:28 | PN ---
Date of Progress Note: 06/25/2018 Subjective: The patient is seen and examined. Chart reviewed and case discussed with RN. Covering for Dr. Montgomery as he is out of town. Case was discussed with Dr. Charles. The patient stated her breathing is somewhat not back to her baseline on supplemental oxygen. Review of Systems: Negative except as above. Medications: List reviewed. Physical Examination: Vital Signs: Temperature 98.3, heart rate 72, blood pressure 113/55, respirations 20, O2 89% on 2 L via nasal cannula. General: Awake, alert, oriented x3, not in acute distress, elderly female. CV: S1, S2. Pulses present. Respiratory: Diminished breath sounds bilaterally. No wheezing. Gastrointestinal: Abdomen is soft, nontender, and nondistended. Positive bowel sounds. Extremities: No clubbing, cyanosis, or edema. Neurologic: Nonfocal. Laboratory Data: Pending. Blood cultures, no growth to date. sputum; 3+ yeast. Urine culture; mix ed flakito. Assessment And Plan: A 78-year-old female with; 1.Acute on chronic respiratory failure, requiring BiPAP. The patient will benefit from noninvasive positive pressure ventilation to prevent hospital readmission. Dr. Charles is on board. 2.Acute encephalopathy, secondary to acute on chronic respiratory failure with hypercapnia and hypox ia, resolved. 3.Respiratory acidosis, improving. 4.Acute on chronic kidney injury, improving. Creatinine back to baseline. We will continue to alexa tor. 5.Essential hypertension, stable on home medications. 6.Coronary artery disease, [place] artery and [place] heart without angina. 7.Peripheral vascular disease. 8.Anemia of chronic disease. 9.Nicotine dependence with cigarette smoking. 10.Alcohol use. 11.History of throat cancer and breast cancer. 12.Gastrointestinal and deep venous thrombosis prophylaxis addressed. Overall, the patient has very poor prognosis. We will set up noninvasive vent for the patient prior to discharge. SA/MODL Voice ID: [id number] Report ID: [id number]
--- NOTE | 2018-06-26 00:21 | PN ---
Date of Progress Note: 06/25/2018 Subjective: The patient is doing better, more awake, sitting on the bed. Physical Examination: General: When I saw the patient, the patient was sitting in the bed, had urine output of 750. Vital Signs: Blood pressure 197/55. Chest: Clear to auscultation. Heart: S1, S2. Regular. Abdomen: Soft, nontender. Extremities: Trace edema. Laboratory Data: WBC of 12. H and H 11/35.6. Sodium 141, potassium 5, bicarb 30, BUN 26, creatinine 0.6. GFR of above 90. Current Medications: The patient is on include; 1. Tylenol. 2. Cholecalciferol. 3. Hydralazine. 4. Levothyroxine. 5. Levaquin. 6. Prednisone. 7. Tramadol. Assessment And Plan: 1. Acute kidney injury secondary to prerenal, recovered, resolved.d/c IV fluid will continue to monitor 2. Hypertension. I am going to go ahead and increase her hydralazine. Continue losartan. 3. Respiratory failure, status post intubation, extubating. Will follow up with the primary and Pulmonary. NINI/EDUARDO Voice ID: [id number] Report ID: [id number] TOÑITO
[2018-06-26] MEDS: ZOLPIDEM TARTRATE 10 MG TABLET PO PRN ×2 (01:06→20:29)
[2018-06-26] MEDS: IPRATROPIUM BROM 0.5MG/2.5ML NEB SCH ×4 (02:38→19:39)
[2018-06-26] MEDS: HYDRALAZINE HCL 20 MG/ML VIAL IV PRN (05:14)
[2018-06-26] MEDS: LEVOTHYROXINE SOD 0.1 MG TAB PO SCH (05:14)
[2018-06-26 06:42] LABS: Absolute Lymphocytes (CBC) 0.6 K/uL (0.7-4.9); Absolute Monocytes 0.9 K/uL (0.1-1.3); Absolute Neutrophil 8.9 K/uL (1.8-8.0); Basophils % 0.4 % (0-1.3); Eosinophils % 0.3 % (0-4.4); Hematocrit 35.6 % (36.0-45.0); Lymphocytes % 5.8 % (15.3-44.8); MCH 25.1 pg (27.0-35.0); MCV 79.5 fL (80-100); MPV 8.4 fL (7.6-11.3); Monocytes % 8.7 % (3.3-12.3); RBC Red Blood Cell Count 4.49 M/uL (3.86-4.86)
[2018-06-26 06:49] LABS: ALT/SGPT 31 U/L (12-78); AST/SGOT 25 U/L (15-37); Albumin 2.7 g/dL (3.4-5.0); Alkaline Phosphatase 52 U/L (45-117); BUN Blood Urea Nitrogen 18 mg/dL (7-18); Bicarbonate 38 mmol/L (21-32); Bilirubin Total 0.5 mg/dL (0.2-1.0); Glucose Level 69 mg/dL (74-106); Protein, Total 5.1 g/dL (6.4-8.2); Sodium Level 138 mmol/L (136-145)
[2018-06-26] MEDS: ARFORMOTEROL TARTRATE 15 MCG/2 ML VIAL.NEB NEB SCH ×2 (07:56→19:39)
[2018-06-26] MEDS: FUROSEMIDE 20 MG/ 2ML VIAL IV SCH (09:29)
[2018-06-26] MEDS: ENOXAPARIN 30 MG/0.3 ML SQ SCH (09:29)
[2018-06-26] MEDS: NICOTINE 14 MG/PAT TD SCH (09:29)
[2018-06-26] MEDS: CALCIUM CARBONATE 500 MG TAB PO SCH ×2 (09:30→20:29)
[2018-06-26] MEDS: LOSARTAN POTASSIUM 50 MG TABLET PO SCH (09:30)
[2018-06-26] MEDS: METOPROLOL TAR 50 MG TAB PO SCH (09:30)
[2018-06-26] MEDS: hydroCHLOROthiazide 12.5 MG CAP PO SCH (09:30)
[2018-06-26] MEDS: BENZONATATE 100 MG CAP PO SCH (09:30)
[2018-06-26] MEDS: predniSONE 20 MG TAB PO SCH (09:31)
[2018-06-26] MEDS: AMLODIPINE 10 MG TAB PO SCH (09:31)
[2018-06-26] MEDS: VITAMIN D 1000 UNIT TAB PO SCH (09:31)
[2018-06-26] MEDS: CITALOPRAM 10 MG TABLET PO SCH (09:31)
[2018-06-26] MEDS: levoFLOXacin 500 MG TAB PO SCH (09:31)
[2018-06-26] MEDS: ROFLUMILAST 500 MCG TABLET PO SCH (09:32)
--- NOTE | 2018-06-26 11:38 | PN ---
Date of Progress Note: 06/26/2018 Subjective: The patient seen and examined. Chart reviewed and case discussed with RN and Dr. Eboni alvarez. The patient is doing well. States that she is getting a little bit of dry mouth and nasal passa ge likely due to her high levels of oxygen, otherwise no significant complaint. Review of Systems: Negative except as above. Medications: List reviewed. Physical Examination: Vital Signs: Temperature 98.1, heart rate 90, blood pressure 159/72, respirations 18, O2 92% on BiPA P. General: Awake, alert, oriented x3. Elderly female, ill appearing, in mild respiratory distress. CV: S1, S2. Pulses present. Respiratory: Diminished breath sounds bilaterally. No wheezing or stridor gastrointestinal. Abdomen: Abdomen is soft, nontender, nondistended. Positive bowel sounds. Extremities: No clubbing, cyanosis, or edema. Neurologic: Nonfocal. Code Status: Full. Laboratory Data: Sodium 138, potassium 4, chloride 96, CO2 38, BUN 18, creatinine 0.6, glucose 69, c alcium 9.1. WBC 10.5, H and H 11.3, 35.6, platelets 157, neutrophils 84%. Blood cultures, no growth to date. Assessment And Plan: A 78-year-old female with: 1.Acute on chronic respiratory failure, requiring BiPAP secondary to chronic obstructive pulmonary d isease. The patient does have hypoxia. The patient will need noninvasive positive-pressure ventilat ion at home in order to provide the hospital readmission. Appreciate Dr. Charles's input. 2.Acute metabolic encephalopathy secondary to above, improved. 3.Respiratory acidosis, improving. 4.Acute on chronic kidney injury. Creatinine back to baseline. We will continue to monitor. 5.Essential hypertension, stable. 6.Coronary artery disease, [place] artery and [place] heart without angina, stable. Continue home med ications. 7.Peripheral vascular disease. 8.Anemia of chronic disease. Hemoglobin and hematocrit are stable. 9.History of alcohol use. 10.History of throat and breast cancer. 11.Gastrointestinal and deep venous thrombosis prophylaxis. Plan: Set up noninvasive positive pressure ventilation, likely on Thursday. Covering for Dr. Montgomery over the weekend and will transfer service once he is back in town. Overall, patient has very poor p rognosis. SA/MODL Voice ID: [id number] Report ID: [id number]
[2018-06-26] MEDS: PREGABALIN 50 MG CAP PO SCH (20:29)
[2018-06-26] MEDS: ROSUVASTATIN 10 MG TAB PO SCH (20:29)
[2018-06-26 21:56] LABS: Vitamin D 1,25-Dihydroxy Total 67 pg/mL (18-72); Vitamin D,1,25-OH2, D2 <8 pg/mL
[2018-06-26] MEDS: GUAIFENESIN 600 MG SA TAB PO SCH (22:03)
--- NOTE | 2018-06-26 22:20 | PN ---
Date of Progress Note: 06/26/2018 Subjective: The patient doing well, comfortable. No shortness of breath. Objective: When I saw the patient, Chest: Clear to auscultation. Heart: S1, S2 regular. Abdomen: Soft. Nontender. Extremity: No edema. Vital Signs: Blood pressure 148/58, pulse of 95. Laboratory Data: WBC 10.5, H and H 11.3/35.6. Sodium 138, potassium 4, bicarb 38, BUN 18, creatinin e 0.6, calcium 9.3. Current Medications: The patient on is include: 1.Tylenol. 2.Alendronate. 3.Amlodipine. 4.Cholecalciferol. 5.Hydralazine. 6.Levaquin. Assessment And Plan: 1.Acute kidney injury secondary to prerenal, recovered, resolved. 2.Hypocalcemia continue vitamin D supplement. Continue calcium oral. 3.Hypertension, controlled, optimal. 4.Respiratory failure status post intubation. Extubated. Follow up with Pulmonary. JOSH Voice ID: [id number] Report ID: [id number]
[2018-06-27] MEDS: IPRATROPIUM BROM 0.5MG/2.5ML NEB SCH ×4 (03:02→19:56)
[2018-06-27] MEDS: LEVOTHYROXINE SOD 0.1 MG TAB PO SCH (05:15)
[2018-06-27 06:38] VITALS: BMI 23.2
[2018-06-27 06:41] LABS: Absolute Lymphocytes (CBC) 0.8 K/uL (0.7-4.9); Absolute Neutrophil 8.9 K/uL (1.8-8.0); Basophils % 0.3 % (0-1.3); Eosinophils % 0.4 % (0-4.4); Hematocrit 35.3 % (36.0-45.0); Lymphocytes % 7.8 % (15.3-44.8); MCH 24.7 pg (27.0-35.0); MCV 78.4 fL (80-100); MPV 8.6 fL (7.6-11.3); Monocytes % 9.1 % (3.3-12.3)
[2018-06-27 06:50] LABS: Albumin 2.7 g/dL (3.4-5.0); Bilirubin Total 0.4 mg/dL (0.2-1.0); Potassium 3.9 mmol/L (3.5-5.1); Protein, Total 5.2 g/dL (6.4-8.2)
[2018-06-27] MEDS: ARFORMOTEROL TARTRATE 15 MCG/2 ML VIAL.NEB NEB SCH ×2 (07:46→19:56)
[2018-06-27] MEDS ORDERED: POTASSIUM 25 MEQ EFFERV TAB PO ONE (08:00)
[2018-06-27] MEDS: AMLODIPINE 10 MG TAB PO SCH (09:00)
[2018-06-27] MEDS: FUROSEMIDE 20 MG/ 2ML VIAL IV SCH (09:00)
[2018-06-27] MEDS: METOPROLOL TAR 50 MG TAB PO SCH ×2 (09:00→21:16)
[2018-06-27] MEDS: hydroCHLOROthiazide 12.5 MG CAP PO SCH (09:00)
[2018-06-27] MEDS: LOSARTAN POTASSIUM 50 MG TABLET PO SCH (09:00)
[2018-06-27] MEDS: ENOXAPARIN 30 MG/0.3 ML SQ SCH (10:16)
[2018-06-27] MEDS: NICOTINE 14 MG/PAT TD SCH (10:17)
[2018-06-27] MEDS: BENZONATATE 100 MG CAP PO SCH (10:17)
[2018-06-27] MEDS: VITAMIN D 1000 UNIT TAB PO SCH (10:17)
[2018-06-27] MEDS: CITALOPRAM 10 MG TABLET PO SCH (10:17)
[2018-06-27] MEDS: predniSONE 20 MG TAB PO SCH (10:18)
[2018-06-27] MEDS: levoFLOXacin 500 MG TAB PO SCH (10:18)
[2018-06-27] MEDS: CALCIUM CARBONATE 500 MG TAB PO SCH (10:18)
[2018-06-27] MEDS: GUAIFENESIN 600 MG SA TAB PO SCH ×2 (10:19→21:17)
[2018-06-27] MEDS: ROFLUMILAST 500 MCG TABLET PO SCH (10:19)
--- NOTE | 2018-06-27 10:49 | P.PN ---
Subjective Date of Service: 06/27/18 Primary Care Provider: Dr. Montgomery(Hospitalist covering); Pulm-Dr. Charles; Card-Dr. Urias Chief Complaint: COPD exacerbation Patient is doing a much better very weak alert responsive cooperative not tolerating the BiPAP Review of Systems General: Weakness Respiratory: Shortness of Breath Physical Examination - Vital Signs Temperature: 97.8 F Blood Pressure: 94/46 Pulse: 88 Respirations: 20 Pulse Ox (%): 91 - Physical Exam General: Alert, Oriented x3 Neck: Supple Respiratory: Expiratory wheezes Cardiovascular: No edema, Normal S1 S2 - Studies Medications List Reviewed: Yes Assessment & Plan - Problems (Diagnosis) (1) Chronic obstructive lung disease COPD Current Visit: No Status: Acute Plan: Patient admitted with COPD day covering vital signs stable blood pressure low I suspect is from a combination of amlodipine and Lasix which have both been Dc 8 Dc antibiotics cultures all negative possible discharge tomorrow Physician Review Additional Text: Impression: Acute encephalopathy likely secondary to acute on chronic respiratory failure with hypercapnia and hypoxia along with acute COPD exacerbation with history of severe COPD requiring home oxygen. Respiratory acidosis, improving Acute on chronic renal failure, improved/back to baseline High risk for aspiration pneumonia Hypertension CAD PVD Anemia likely of chronic disease Tobacco abuse Alcohol use History of throat cancer/breast cancer Plan: Patient continues to improve. Patient intubated and slightly sedated. Pulmonology plans to wean her off ventilator. Patient will likely need noninvasive ventilator in the future. Patient may require skilled placement as well. This was cuss with family. This can be further addressed if her condition is slow to improved. Respiratory acidosis resolved. CT scan brain unremarkable. If her encephalopathy continues patient may require MRI. Otherwise stable. Patient on antibiotic therapy to cover for possible aspiration pneumonia. Patient has hypertension. Will continue with medication IV as needed. Patient with CAD. Slight elevation in troponin likely from stress related to acute respiratory failure. Cardiology consulted. No cardiac intervention needed at this time. Await echocardiogram. Patient with acute on chronic renal disease. This has resolved. Patient appears to be at her baseline level. Renal ultrasound unremarkable. Nephrology consulted. Patient with mild anemia. Likely of chronic disease. Patient on DVT prophylaxis. Patient with history of tobacco and alcohol use. Overall stable. Will encourage cessation. I will turn the service over to Dr. Montgomery who is the attending physician and sees the patient regularly. I will keep him updated on the current status.
--- NOTE | 2018-06-27 15:36 | PN ---
Date of Progress Note: 06/26/2018 Subjective: The patient seen and examined. Chart reviewed and case discussed with RN and Dr. Eboni alvarez. The patient requesting Mucinex, otherwise doing okay. Review of Systems: Negative except as above. Medications: List reviewed. Physical Examination: Vital Signs: Temperature 97.8, heart rate 88, blood pressure 94/46, respirations 20, O2 98% on 2 L o n nasal cannula. General: Awake, alert, oriented x3, not in any acute distress. Elderly female. CV: S1, S2. Peripheral pulses present. Respiratory: Diminished breath sounds. No wheezing or stridor. Gastrointestinal: Abdomen is soft, nontender, nondistended. Positive bowel sounds. Extremities: No clubbing, cyanosis, edema. Neurologic: Nonfocal. Laboratory Data: Sodium 138, potassium 3.9, chloride 94, CO2 40, BUN 18, creatinine 0.8, glucose 92, calcium 10.2. WBC 10.7, H and H 11.1, 35.3, platelets 185. Blood cultures, no growth to date. Uri ne showing mixed flakito. Urine culture 3+ east, normal flakito. Assessment And Plan: A 78-year-old female with: 1.Acute on chronic respiratory failure requiring BiPAP secondary to chronic obstructive pulmonary di sease with hypoxia, noninvasive positive pressure ventilation being set up. 2.Acute metabolic encephalopathy secondary to above, resolved. 3.Respiratory acidosis, improved. 4.Acute on chronic kidney injury. Creatinine back to baseline. Continue to monitor. 5.Essential hypertension, stable. The patient does become hypertensive in the morning. She will ne ed to cut back on medications at nighttime, we will hold morning dose. 6.Coronary artery disease, [place] artery and [place] heart without angina, stable. 7.Peripheral vascular disease. 8.Anemia of chronic disease. Monitor H and H, transfuse as needed. 9.History of alcohol use. 10.History of throat and breast cancer. 11.Gastrointestinal and deep venous thrombosis prophylaxis addressed. Plan: Likely discharge in a.m. once noninvasive vent is set up. We will turn over service to Dr. Vonda olivas on Thursday morning once he is back. /EDUARDO Voice ID: [id number] Report ID: [id number]
--- NOTE | 2018-06-27 20:30 | PN ---
Date of Progress Note: 06/27/2018 Subjective: The patient doing well. Physical Examination: Vital Signs: Blood pressure 141/57, pulse of 77. Chest: Faint wheezing. Heart: S1 and S2. Regular. Abdomen: Soft, nontender. Extremities: Trace edema. Laboratory Data: WBC 7, H and H 11.1/35.3. Sodium 138, potassium 3.9, bicarb 4, BUN 18, creatinine 0.8, calcium 10.2. Current Medications: 1.Hydrochlorothiazide. 2.Calcium carbonate. 3.Tylenol. 4.Alendronate. 5.Vitamin D. 6.Guaifenesin. 7.Levaquin. 8.Losartan. 9.Nicotine patch. Assessment And Plan: 1.Acute kidney injury, resolved. 2.Hypocalcemia, currently hypercalcemia, I am going to DC calcium supplement. We will continue for the time being with hydrochlorothiazide and vitamin D and we will follow up the level. 3.Hypertension, controlled, optimal. Continue current medication. 4.Respiratory failure and pneumonia with excerebration, recovered. Continue current Levaquin. We will follow up with the Pulmonary and Primary. NINI/EDUARDO Voice ID: [id number] Report ID: [id number]
[2018-06-27] MEDS: ZOLPIDEM TARTRATE 10 MG TABLET PO PRN (21:17)
[2018-06-27] MEDS: PREGABALIN 50 MG CAP PO SCH (21:17)
[2018-06-27] MEDS: ROSUVASTATIN 10 MG TAB PO SCH (21:17)
[2018-06-27] MEDS ORDERED: TEMAZEPAM 15 MG CAP PO PRN (23:53)
[2018-06-28] MEDS: IPRATROPIUM BROM 0.5MG/2.5ML NEB SCH ×2 (02:33→08:58)
[2018-06-28] MEDS: LEVOTHYROXINE SOD 0.1 MG TAB PO SCH (06:02)
[2018-06-28 07:07] LABS: Albumin 2.5 g/dL (3.4-5.0); Bilirubin Total 0.5 mg/dL (0.2-1.0); Potassium 3.8 mmol/L (3.5-5.1); Protein, Total 4.9 g/dL (6.4-8.2)
[2018-06-28 07:18] LABS: Absolute Lymphocytes (CBC) 0.7 K/uL (0.7-4.9); Absolute Monocytes 1.1 K/uL (0.1-1.3); Absolute Neutrophil 7.2 K/uL (1.8-8.0); Basophils % 0.2 % (0-1.3); Eosinophils % 0.9 % (0-4.4); Hematocrit 34.4 % (36.0-45.0); Lymphocytes % 7.4 % (15.3-44.8); MCV 78.9 fL (80-100); MPV 8.5 fL (7.6-11.3); Monocytes % 11.9 % (3.3-12.3); RBC Red Blood Cell Count 4.36 M/uL (3.86-4.86)
[2018-06-28] MEDS: ARFORMOTEROL TARTRATE 15 MCG/2 ML VIAL.NEB NEB SCH (08:58)
[2018-06-28] MEDS ORDERED: POTASSIUM CL SA 10 MEQ TAB PO ONE (09:00)
[2018-06-28] MEDS: NICOTINE 14 MG/PAT TD SCH (09:29)
[2018-06-28] MEDS: ENOXAPARIN 30 MG/0.3 ML SQ SCH (09:29)
[2018-06-28] MEDS: GUAIFENESIN 600 MG SA TAB PO SCH (09:30)
[2018-06-28] MEDS: hydroCHLOROthiazide 12.5 MG CAP PO SCH (09:30)
[2018-06-28] MEDS: BENZONATATE 100 MG CAP PO SCH (09:30)
[2018-06-28] MEDS: METOPROLOL TAR 50 MG TAB PO SCH (09:31)
[2018-06-28] MEDS: ROFLUMILAST 500 MCG TABLET PO SCH (09:31)
[2018-06-28] MEDS: levoFLOXacin 500 MG TAB PO SCH (09:31)
[2018-06-28] MEDS: predniSONE 20 MG TAB PO SCH (09:31)
[2018-06-28] MEDS: CITALOPRAM 10 MG TABLET PO SCH (09:31)
[2018-06-28] MEDS: LOSARTAN POTASSIUM 50 MG TABLET PO SCH (09:32)
[2018-06-28 09:52] VITALS: O2SAT 88
[2018-06-28 12:51] VITALS: BP 90/43; TEMP 98.8
--- NOTE | 2018-06-29 02:43 | PN ---
Date of Progress Note: 06/28/2018 Chief Complaint: Prerenal azotemia, acute kidney injury. Subjective: Renal function has improved over the last several days. The patient was found to have h ypocalcemia; and primarily, she was started on calcium supplement. Subsequently, the patient was fou nd to have borderline hypercalcemia. Calcium was 10.2, and calcium supplements were terminated. The patient has hypertension. Blood pressure was fluctuating, and the patient's medications were adj usted. The patient presented to the hospital because of respiratory distress. She has severe COPD, received treatment for COPD exacerbation. She was extubated and transferred to the floor. The patie nt is feeling better. Review of Systems: Denies fever or chills. Physical Examination: Lungs: Few rhonchi. Heart: S1 and S2. Abdomen: Soft, benign. Extremities: Trace edema. Laboratory Data: BUN 18, creatinine 0.8, calcium 10.2, sodium 138, potassium 3.9. Hemoglobin 11.5. Impression And Plan: 1.Acute kidney injury, resolved. The patient will follow up with Nephrology outpatient. 2.Borderline hypercalcemia. Calcium tablets stopped. 3.Hypertension. Monitor blood pressure closely and hold blood pressure medication if systolic blood pressure is below 110. 4.Anemia, chronic, mild. Hemoglobin 10.9. The patient will follow up with drying machine tender and primary physician. Lab work today showed BUN 19, creatinine 0.8, sodium 140, potassium 3.8, chloride 99, and CO2 of 38. The patient has history of chronic obstructive pulmonary disease. Electrolytes are stable. The patient will follow up with Pulmonary a brigitte drying machine tender. ELIZABETH/EDUARDO Voice ID: [id number] Report ID: [id number]
--- NOTE | 2018-06-29 14:22 | PN ---
Date of Progress Note: 06/28/2018 The patient seems to slowly feel better, mobilizing better, eating better. Vital signs stable. She now has a respiratory equipment at home. She can be discharged to follow up with myself and Dr. Snehal pires. The blood pressure medicine has been adjusted as she is now hypotensive with increase in beta blockers. We will go back to her regular dosage. She is also on the patch for her smoking, obviousl y important part of her continued recuperation. HR/MODL Voice ID: [id number] Report ID: [id number]
[2018-06-30] MEDS ORDERED: ALENDRONATE 70 MG TAB PO SCH (06:30)
== END 2018-06-28 14:47 | disposition home health service (06) | DRG 208 ==
LOC: ER 13:58 → ERHOLD 17:27 → 3RD-ICU 19:50 → 4TH 06-23 15:12
PROVIDERS: ADMIT Family Medicine; ATTEND Family Medicine
PROC: 0BH17EZ Insertion of Endotracheal Airway into Trachea, Via Natural or Artificial Opening (ICD-10-PCS; principal; 2018-06-19)
PROC: 5A1945Z Respiratory Ventilation, 24-96 Consecutive Hours (ICD-10-PCS; 2018-06-19)
PROC: 5A09357 Assistance with Respiratory Ventilation, Less than 24 Consecutive Hours, Continuous Positive Airway Pressure (ICD-10-PCS; 2018-06-19)
PROC: 5A09357 Assistance with Respiratory Ventilation, Less than 24 Consecutive Hours, Continuous Positive Airway Pressure (ICD-10-PCS; 2018-06-25)
DX: J96.22 Acute and chronic respiratory failure with hypercapnia (principal); J18.9 Pneumonia, unspecified organism; G93.41 Metabolic encephalopathy; J44.1 Chronic obstructive pulmonary disease with (acute) exacerbation; E87.2 Acidosis; I13.0 Hypertensive heart and chronic kidney disease with heart failure and stage 1 through stage 4 chronic kidney disease, or unspecified chronic kidney disease; N17.9 Acute kidney failure, unspecified; I50.32 Chronic diastolic (congestive) heart failure; I25.10 Atherosclerotic heart disease of native coronary artery without angina pectoris; E78.5 Hyperlipidemia, unspecified; N18.9 Chronic kidney disease, unspecified; D63.1 Anemia in chronic kidney disease; I35.0 Nonrheumatic aortic (valve) stenosis; E83.51 Hypocalcemia; I73.9 Peripheral vascular disease, unspecified; E03.9 Hypothyroidism, unspecified; K21.9 Gastro-esophageal reflux disease without esophagitis; G47.33 Obstructive sleep apnea (adult) (pediatric); F32.9 Major depressive disorder, single episode, unspecified; F10.10 Alcohol abuse, uncomplicated; F17.210 Nicotine dependence, cigarettes, uncomplicated; Z85.3 Personal history of malignant neoplasm of breast; Z85.819 Personal history of malignant neoplasm of unspecified site of lip, oral cavity, and pharynx
CPT/HCPCS: 31500; 36415; 70450; 71045; 74177; 76770; 80048; 80053; 80061; 80074; 80202; 80307; 80320; 80329; 81001; 81003; 82010; 82140; 82550; 82553; 82652; 82805; 82962; 83520; 83735; 83880; 83970; 84100; 84145; 84156; 84165; 84166; 84439; 84443; 84484; 85025; 86021; 86038; 86334; 87040; 87070; 87086; 87088; 87205; 87389; 93306; 93975; 94002; 94003; 94640; 94660; 94667; 94668; 94760; 97163; 99291; J0330; J0360; J1650; J1940; J2185; J2250; J2405; J2930; J3010; J3370; J3411; J7030; J7512; J7605; Q9967

== ENCOUNTER 2018-09-02 20:02 | Inpatient (IN) | payer OTHER ==
--- OUTSIDE RECORDS SUMMARY | 2018-09-02 20:26 | XMS REPORT | Clinical Summary ---
:1940 Author Organization [facility] Address [address] [place] [address] Care Team Providers Name Role Phone Yunior Montgomery MD Primary Care Provider Allergies Active Allergy Reactions Severity Noted Date Comments Codeine 01/10/2018 Other reaction(s): Unknown Perindopril Swelling High 01/25/2017 Throat swelled up. Medications Medication Sig Dispensed Refills Start Date End Date Status PROAIR HFA 90 0 07/14/2016 Active mcg/actuation inhaler alendronate Take 70 mg by 0 07/30/2016 Active (FOSAMAX) 70 MG mouth once a tablet week. citalopram Take 40 mg by 0 08/01/2016 Active (CeleXA) 40 MG mouth daily. tablet levothyroxine Take 100 mcg by 0 07/25/2016 Active (SYNTHROID, mouth daily. LEVOTHROID) 100 MCG tablet predniSONE Take 100 mg by 0 07/30/2016 Active (DELTASONE) 10 MG mouth 2 (two) tablet times a day. traMADol (ULTRAM) Take 50 mg by 0 07/25/2016 Active 50 mg tablet mouth every 8 (eight) hours as needed. rosuvastatin Take 10 mg by 0 Active (CRESTOR) 10 MG mouth daily. tablet ASPIRIN (ASPIR-LOW Take 81 mg by 0 Active ORAL) mouth daily. roflumilast Take 500 mcg by 0 Active (DALIRESP) 500 mcg mouth daily. tablet cholecalciferol, Take 2,000 Units 0 Active vitamin D3, by mouth daily. (VITAMIN D3) 2,000 unit tablet TIOTROPIUM BROMIDE Inhale 5 mcg. 0 Active (SPIRIVA RESPIMAT INHL) zolpidem (AMBIEN) Take 10 mg by 0 Active 10 mg tablet mouth nightly as needed for sleep. potassium chloride 0 04/13/2017 Active 20 mEq tablet extended release arformoterol Take 15 mcg by 0 Active (BROVANA) 15 mcg/2 nebulization 2 mL solution for (two) times a nebulization day. albuterol 2.5 mg Inhale. 0 Active /3 mL (0.083 %) solution for nebulization 3 mL, albuterol 5 mg/mL solution for nebulization 0.5 mL hydrALAZINE Take 1 tablet (25 90 tablet 3 09/16/2017 Active (APRESOLINE) 25 MG mg total) by tablet mouth daily as needed (sytolic bp >160). furosemide (LASIX) TAKE ONE TABLET 90 tablet 2 09/29/2017 Active 20 mg tablet BY MOUTH DAILY metoprolol TAKE ONE TABLET 180 tablet 2 05/17/2018 Active tartrate BY MOUTH TWICE A (LOPRESSOR) 25 mg DAY tablet LYRICA 75 mg 0 04/19/2018 Active capsule SPIRIVA RESPIMAT 0 05/20/2018 Active 2.5 mcg/actuation mist VIT D3-FOLIC DAILY 0 02/16/2017 Active [id number] ORAL pantoprazole Take 1 tablet (40 90 tablet 3 05/25/2018 Active (PROTONIX) 40 MG mg total) by EC mouth daily. tabletIndications: Chest pain, unspecified type losartan (COZAAR) TAKE ONE TABLET 90 tablet 1 07/06/2018 Active 100 MG tablet BY MOUTH DAILY clopidogrel TAKE ONE TABLET 90 tablet 0 08/12/2018 Active (PLAVIX) 75 mg BY MOUTH DAILY tabletIndications: Coronary artery disease involving [place] heart with angina pectoris, unspecified vessel or lesion type ([facility]) LYRICA 50 mg Take 50 mg by 0 07/23/2016 11/24/19 Discontinued capsule mouth daily. 18 [...] tabletIndications: mouth daily. Coronary artery disease involving [place] heart with angina pectoris, unspecified vessel or lesion type (HCC) hydrALAZINE 0 03/15/2017 09/16/20 Discontinued (APRESOLINE) 25 MG 17 tablet metoprolol Take 1 tablet (25 180 tablet 3 05/19/2017 05/15/20 Discontinued tartrate mg total) by 18 (LOPRESSOR) 25 mg mouth 2 (two) tablet times a day. losartan (COZAAR) TAKE ONE TABLET 90 tablet 2 09/29/2017 07/05/20 Discontinued 100 MG tablet BY MOUTH DAILY 18 clopidogrel TAKE ONE TABLET 90 tablet 2 01/26/2018 08/12/20 Discontinued (PLAVIX) 75 mg BY MOUTH DAILY 18 tabletIndications: Coronary artery disease involving [place] heart with angina pectoris, unspecified vessel or lesion type (HCC) Active Problems Problem Noted Date Chest pain 05/25/2018 Essential hypertension 08/19/2016 PAD (peripheral artery disease) 08/19/2016 CAD in [place] artery 08/19/2016 Bilateral carotid artery disease 08/19/2016 Encounters Date Type Specialty Care Team Description 08/12/2018 Refill Cardiology Jewel Gomez MD Med Refill 07/05/2018 Refill Cardiology Jewel Gomez MD Med Refill 06/08/2018 Telephone Cardiology Alfreda Gibbs MA Results 05/25/2018 Office Visit Cardiology Jewel Gomez MD Chest pain, unspecified type (Primary Dx); PAD (peripheral artery disease); Bilateral carotid artery disease 05/15/2018 Refill Cardiology Jewel Gomez MD Med Refill 01/26/2018 Refill Cardiology Jewel Gomez MD Med Refill 11/24/2017 Office Visit Cardiology Jewel Gomez MD CAD in [place] artery (Primary Dx); PAD (peripheral artery disease); Bilateral carotid artery disease 09/29/2017 Refill Cardiology Jewel Gomez MD Med Refill 09/16/2017 Refill Cardiology Alfreda Gibbs MA Med Refill after 09/01/2017 Family History Medical History Relation Name Comments [...] Assigned at Date Recorded Not on file Job Start Date Occupation Industry Not on file Not on file Not on file Travel History Travel Start Travel End No recent travel history available. Last Filed Vital Signs Vital Sign Reading Time Taken Blood Pressure 179/77 11/24/2017 10:21 AM [employer] Pulse 73 11/24/2017 10:21 AM [employer] Temperature - - Respiratory Rate - - Oxygen Saturation - - Inhaled Oxygen Concentration - - Weight 61.2 kg (135 lb) 11/24/2017 10:21 AM [employer] Height 177.8 cm (5' 10") 11/24/2017 10:21 AM [employer] Body Mass Index 19.37 11/24/2017 10:21 AM [employer] Plan of Treatment Date Type Specialty Care Team Description 11/23/2018 Office Visit Cardiology Jewel Gomez MD [address] [address] Health Maintenance Due Date Last Done Comments SHINGRIX VACCINE (1 of 2) 1991 ZOSTER VACCINE 2001 PNEUMOCOCCAL POLYSACCHARIDE VACCINE [...] 12-LEAD Routine 11/24/2017 10:12 AM CAD in [place] artery Results for this [employer] procedure are in the results section. after 09/01/2017 Results Pv carotid duplex (05/27/2018 2:18 PM CDT) [facility]ative [facility] Carotid Artery Ultrasound Report Pat.Name:MICHELLE RUBI Carli.ID:[id number] St.Date: 05/27/2018 Refer.MD:JEWEL GOMEZ MD Exam Time: 2:16:00 PMStudy Type:Carotid DOBAge:1940,78YSex: FEMALE Sonogrphr: Dann Salvador, RVTPat. Stat.:Outpatient CPT - 4: 05864 Echo Event ID:[id number] Order ID:[id number] Reason for Study:Yearly followup evaluation severe right [...] cm/sVertebral EDV 16.3 cm/s Left Vertebral Vertebral DRV066 cm/sVertebral EDV 55.6 cm/s Right SCA Prox SCA Prox PSV75 cm/s Left SCA Prox SCA Prox PSV 122 cm/s Right ICA/CCA Ratio ICA/CCA PSV 2.86 Signed 06/02/2018 10:58 AM Jewel Gomez MD Procedure Note Interface, Radiology Results In - 06/02/2018 10:58 AM CDT [facility] Carotid Artery Ultrasound Report Pat.Name: MICHELLE RUBI.ID: [id number] St.Date: 05/27/2018 Refer.MD: JEWEL GOMEZ MD Exam Time: 2:16:00 PM Study Type:Carotid Age: 4 1940,78Y Sex: FEMALE Sonogrphr: Dann Salvador RVT Pat. Stat.:Outpatient CPT - 4: 89110 Echo Event ID:[id number] Order ID: [id number] Reason for Study:Yearly followup evaluation severe right [...] AM Jewel Gomez MD Performing Organization Address City/State/Zipcode Phone Number [facility] [address] [place] [address] ECG 12 lead (05/25/2018 9:14 AM CDT)Only the most recent of2 resultswithin the time period is included. Ventricular rate 68 [facility] Atrial rate 68 [facility] VA interval 144 [facility] QRSD interval 76 [facility] QT interval 412 [facility] QTC interval 438 [facility] P axis 1 60 [facility] QRS axis 1 69 [facility] T wave axis 82 [facility] EKG impression Normal sinus rhythm-Septal infarct , age undetermined-ST & T wave abnormality, consider anterolateral ischemia-Abnormal ECG-In automated comparison with ECG of 13-NOV-2017 10:12,-T wave inversion mo [facility] re evident in Anterior leads- Performing Organization Address City/State/Zipcode Phone Number [facility] [address] [place] [address] after 09/01/2017 Insurance Payer Benefit Plan / Group Subscriber ID Type Phone Address AETNA MEDICARE AETNA MEDICARE HMO/PPO [facility] xxxxxxxx HMO Advance Directives Patient has advance care planning documents on file. For more information, please contact:Robbie Asif[address] [place] [address]
--- OUTSIDE RECORDS SUMMARY | 2018-09-02 20:27 | XMS REPORT | Clinical Summary ---
:1940 [facility] Address [address] [place] [address] Care Team Providers Name Role Phone Ulises Yunior Primary Care Provider Allergies Active Allergy Reactions Severity Noted Date Comments Perindopril Swelling High 01/25/2017 Throat swelled up. Medications Medication Sig Dispensed Refills Start Date End Date Status metoprolol Take 100 mg by 0 Active (LOPRESSOR) 100 MG mouth daily. tabletIndications: hypertension losartan (COZAAR) 100 Take 100 mg by 0 Active MG tabletIndications: mouth daily. hypertension levothyroxine Take 100 mcg by 0 Active (SYNTHROID, mouth Every LEVOTHROID) 100 MCG morning on an tabletIndications: empty stomach. hypothyroidism rosuvastatin Take 10 mg by 0 Active (CRESTOR) 10 MG mouth daily. tabletIndications: hyperlipidemia citalopram (CELEXA) Take 40 mg by 0 Active 40 MG mouth daily. tabletIndications: Anxiety with Depression clopidogrel (PLAVIX) Take 75 mg by 0 Active 75 mg tablet mouth daily. aspirin 81 MG EC Take 81 mg by 0 Active tablet mouth daily. furosemide (LASIX) 20 Take 20 mg by 0 Active MG tablet mouth daily. anastrozole Take 1 mg by 0 Active (ARIMIDEX) 1 mg mouth daily. tablet alendronate (FOSAMAX) Take 70 mg by 0 Active 70 MG mouth every 7 tabletIndications: days Take in Post-Menopausal the morning Osteoporosis with a full glass of water, on an empty stomach, and do not take anything else by mouth or lie down for the next 30 min. . pregabalin (LYRICA) Take 50 mg by 0 Active 50 MG capsule mouth daily with dinner. traMADol (ULTRAM) 50 Take 50 mg by 0 Active mg tabletIndications: mouth as needed Pain for Pain. zolpidem (AMBIEN) 10 Take 10 mg by 0 Active mg tablet mouth every night as needed for Insomnia. cloNIDine HCl Take 0.1 mg by 0 Active (CATAPRES) 0.1 MG mouth as tablet [...] travel history available. Last Filed Vital Signs Not on file Plan of Treatment Not on file Results Not on fileafter 09/01/2017 Insurance Payer Benefit Plan / Subscriber ID Type Phone Address Group AETNA - MEDICARE AET MEDICARE O xxxxxxxx [phone] [address] [place] [id number] Advance Directives For more information, please contact:[place] [address] [address] [place], [place] [phone] Code Status Date Activated Date Inactivated Comments Full Code 01/25/2017 1:46 AM 01/26/2017 1:49 PM This code status was determined by: Patient
--- OUTSIDE RECORDS SUMMARY | 2018-09-02 20:27 | XMS REPORT ---
:1940 [facility] Address [address] [place] [address] Dr. Marina [address] [place] [address] Care Team Providers Name Role Phone IFRAH [...] Reference Range Comments HEMOGLOBIN A1C (BEAKER) (test gvce=123) 5.6 % 4.3-6.1 VITAMIN [id number] 07:58:00 Test Item Value Reference Range Comments VITAMIN B12 (BEAKER) (test ofwm=568) 317 pg/mL 213-816 TSH/FREE T4 IF [id number] 07:51:00 Test Item Value Reference Range Comments THYROID STIMULATING HORMONE (BEAKER) (test 1.65 uIU/mL 0.35-4.94 hrdy=250) [id number] 07:37:00 Test Item Value Reference Range Comments MAGNESIUM (BEAKER) (test ojcg=517) 2.0 mg/dL 1.6-2.6 BASIC METABOLIC [id number] 07:37:00 Test Item Value Reference Range Comments SODIUM (BEAKER) (test 138 meq/L 136-145 pdum=625) POTASSIUM (BEAKER) (test 4.8 meq/L 3.5-5.1 uffd=598) CHLORIDE (BEAKER) (test 103 meq/L 98-107 urfy=632) CO2 (BEAKER) (test 25 meq/L 22-29 rirp=160) BLOOD UREA NITROGEN 21 mg/dL 7-21 (BEAKER) (test ofdf=925) CREATININE (BEAKER) (test 0.86 mg/dL 0.57-1.25 ieog=438) GLUCOSE RANDOM (BEAKER) 68 mg/dL 70-105 (test lxao=753) CALCIUM (BEAKER) (test 8.4 mg/dL 8.4-10.2 beyu=005) EGFR (BEAKER) (test 64 mL/min/1.73 sq m ESTIMATED GFR IS NOT uqxu=9964) ACCURATE CREATININE CLEARANCE IN PREDICTING GLOMERULAR FILTRATION RATE. ESTIMATED GFR IS NOT APPLICABLE FOR DIALYSIS PATIENTS. LIPID [id number] 07:37:00 Test Item Value Reference Range Comments TRIGLYCERIDES (BEAKER) (test yxbx=806) 93 mg/dL CHOLESTEROL (BEAKER) (test uhls=598) 146 mg/dL HDL CHOLESTEROL (BEAKER) (test cqcj=046) 56 mg/dL LDL CHOLESTEROL CALCULATED (BEAKER) (test 71 mg/dL nnqs=876) Triglyceride Reference Range: Low Risk <150 Borderline 150- 199 High Risk 200-499 Very High Risk >=500Cholesterol Reference Range: Low Risk <200 Borderline 200-239 High Risk > 240HDL Cholesterol Reference Range: Low Risk >=60 High Risk <40LDL Cholesterol Reference Range: Optimal <100 Near Optimal 100-129 Borderline 130-159 High 160-189 Very High >=190HEPATIC FUNCTION [id number] 07:37:00 Test Item Value Reference Range Comments TOTAL PROTEIN (BEAKER) (test tkhc=266) 6.1 gm/dL 6.0-8.3 ALBUMIN (BEAKER) (test oqrf=3999) 3.8 g/dL 3.5-5.0 BILIRUBIN TOTAL (BEAKER) (test zson=281) 0.3 mg/dL 0.2-1.2 BILIRUBIN DIRECT (BEAKER) (test xxch=761) 0.1 mg/dL 0.1-0.5 ALKALINE PHOSPHATASE (BEAKER) (test nrry=607) 56 U/L 40-150 AST (SGOT) (BEAKER) (test xavu=222) 17 U/L 5-34 ALT (SGPT) (BEAKER) (test wgas=536) 8 U/L 6-55 CBC W/PLT COUNT & AUTO [id number] 07:33:00 Test Item Value Reference Range Comments WHITE BLOOD CELL COUNT (BEAKER) (test luld=754) 5.1 K/ L 4.0-10.0 RED BLOOD CELL COUNT (BEAKER) (test bjrr=883) 4.01 M/ L 4.00-5.00 HEMOGLOBIN (BEAKER) (test kjfc=061) 12.8 GM/DL 12.0-15.0 HEMATOCRIT (BEAKER) (test susq=441) 39.7 % 36.0-45.0 MEAN CORPUSCULAR VOLUME (BEAKER) (test ukaj=141) 98.9 fL 82.0-99.0 MEAN CORPUSCULAR HEMOGLOBIN (BEAKER) (test 32.0 pg 27.0-33.0 tbee=336) MEAN CORPUSCULAR HEMOGLOBIN CONC (BEAKER) (test 32.4 GM/DL 32.0-36.0 xibf=074) RED CELL DISTRIBUTION WIDTH (BEAKER) (test 13.6 % 10.3-14.2 vxxp=328) PLATELET COUNT (BEAKER) (test uvhe=800) 195 K/CU MM 150-430 MEAN PLATELET VOLUME (BEAKER) (test goqg=481) 7.4 fL 6.5-10.5 NUCLEATED RED BLOOD CELLS (BEAKER) (test 0 /100 WBC 0-0 vqoy=633) NEUTROPHILS RELATIVE PERCENT (BEAKER) (test 46 % nqem=580) LYMPHOCYTES RELATIVE PERCENT (BEAKER) (test 41 % nfow=723) MONOCYTES RELATIVE PERCENT (BEAKER) (test 11 % iged=070) EOSINOPHILS RELATIVE PERCENT (BEAKER) (test 1 % byvc=487) BASOPHILS RELATIVE PERCENT (BEAKER) (test 1 % udeo=893) NEUTROPHILS ABSOLUTE COUNT (BEAKER) (test 2.34 K/ L 1.80-8.00 hept=399) LYMPHOCYTES ABSOLUTE COUNT (BEAKER) (test 2.10 K/ L 1.48-4.50 tpox=734) MONOCYTES ABSOLUTE COUNT (BEAKER) (test 0.58 K/ L 0.00-1.30 hklw=582) EOSINOPHILS ABSOLUTE COUNT (BEAKER) (test 0.03 K/ L 0.00-0.50 oljk=858) BASOPHILS ABSOLUTE COUNT (BEAKER) (test 0.06 K/ L 0.00-0.20 eugx=928) 0.00PT/[id number] 07:04:00 Test Item Value Reference Range Comments PROTIME (BEAKER) (test hsvt=512) 12.8 seconds 11.7-14.7 INR (BEAKER) (test ygxx=553) 1.0 <=5.9 PARTIAL THROMBOPLASTIN TIME (BEAKER) (test 26.8 seconds 22.5-36.0 gbge=973) RECOMMENDED COUMADIN/WARFARIN INR THERAPY RANGESSTANDARD DOSE: 2.0 - 3.0 Includes: PROPHYLAXIS forvenous thrombosis, systemic embolization; TREATMENT for venous thrombosis and/or pulmonary embolus.HIGH RISK: Target INR is 2.5-3.5 for patients with mechanical heart valves.PROTHROMBIN TIME/[id number] 07:03: 00 Test Item Value Reference Range Comments PROTIME (BEAKER) (test lfvu=360) 12.8 seconds 11.7-14.7 INR (BEAKER) (test kobs=077) 1.0 <=5.9 RECOMMENDED COUMADIN/WARFARIN INR THERAPY RANGESSTANDARD DOSE: 2.0 - 3.0 Includes: PROPHYLAXIS forvenous thrombosis, systemic embolization; TREATMENT for venous thrombosis and/or pulmonary embolus.HIGH RISK: Target INR is 2.5-3.5 for patients with mechanical heart valves.
[2018-09-02 20:42] LABS: Absolute Lymphocytes (CBC) 3.2 K/uL (0.7-4.9); Absolute Monocytes 1.3 K/uL (0.1-1.3); Absolute Neutrophil 14.4 K/uL (1.8-8.0); Basophils % 0.3 % (0-1.3); Hematocrit 39.3 % (36.0-45.0); MCH 26.7 pg (27.0-35.0); MCV 85.5 fL (80-100); MPV 8.6 fL (7.6-11.3); Monocytes % 6.9 % (3.3-12.3)
[2018-09-02] MEDS ORDERED: METHYLPREDNISOLONE 125 MG INJ ONE ×2 (20:45→23:59)
[2018-09-02 20:46] LABS: Protime INR 0.99
[2018-09-02 20:57] LABS: BUN Blood Urea Nitrogen 24 mg/dL (7-18); Bicarbonate 29 mmol/L (21-32); CKMB Creatine Kinase MB 1.4 ng/mL (0.3-3.6); Creatine Phosphokinase 38 U/L (26-192); Glucose Level 117 mg/dL (74-106); NT PRO-BNP 1753 pg/mL (<450); Potassium 4.6 mmol/L (3.5-5.1); Sodium Level 138 mmol/L (136-145); Troponin (Emerg Dept Use Only) < 0.02 ng/mL (0.0-0.045)
--- NOTE | 2018-09-02 20:58 | RAD REPORT ---
EXAM DESCRIPTION: RAD - Chest Single View - 09/02/2018 8:41 pm CLINICAL HISTORY: DYSPNEA Chest pain. COMPARISON: Chest Single View dated 06/21/2018; Chest Single View dated 06/20/2018; Chest Single View d ated 06/19/2018; Chest Single View dated 06/19/2018 FINDINGS: Portable technique limits examination quality. Moderate right lower lung airspace consolidation is seen most compatible with pneumonia. The heart is upper limit normal size with aortic atherosclerosis. No displaced fractures. IMPRESSION: Right lower lobe pneumonia.
[2018-09-02 21:13] LABS: Anisocytosis 1+; Blood Morphology Comment NOTED (NOT SEEN); Platelet Estimate ADEQ
--- NOTE | 2018-09-02 21:43 | ER ---
Nurse's Notes [facility] Name: Michelle Benson Age: 78 yrs Sex: Female : 1940 Arrival Date: 09/02/2018 Time: 20:03 Bed 2 Private MD: Diagnosis: Pneumonia;Hypoxemia;Dyspnea, unspecified Presentation: 09/02 20:05 Presenting complaint: EMS states: they were called out for report of pt having bb respiratory distress on scene pt had labored breathing, was tripoding and sats were 78% on 4 L NC. Transition of care: patient was not received from another setting of care. Onset of symptoms was September 02, 2018. Risk Assessment: Do you want to hurt yourself or someone else? Patient reports no desire to harm self or others. Initial Sepsis Screen: Does the patient meet any 2 criteria? RR > 20 per min. HR > 90 bpm. Yes Does the patient have a suspected source of infection? Yes: Productive cough/pneumonia If YES to both, name of provider notified: Jorge Rowe MD. Care prior to arrival: Medication(s) given: Albuterol Neb x 3, Atrovent Neb x 1, solu-medrol 125 mg, Magnesium 2 Grams IV initiated. 20 GA, in the right forearm. 20:05 Method Of Arrival: EMS: [facility] bb 20:05 Acuity: RHIANNON 1 bb Historical: - Allergies: 20:13 Codeine; bb 20:13 perindopril erbumine; bb - Home Meds: 20:38 prednisone 10 mg Oral tab 1 tab once daily [Active]; furosemide 20 mg Oral tab 1 tab bb once daily [Active]; Lyrica 75 mg Oral 1 cap daily [Active]; metoprolol tartrate 25 mg Oral tab 1 tab 2 times per day [Active]; Ambien 10 mg Oral tab 1 tab once daily [Active]; Brovana 15 mcg/2 mL inhalation nebu 2 mL 2 times per day [Active]; citalopram 40 mg tab 1 tab once daily [Active]; clopidogrel 75 mg Oral tab 1 tab once daily [Active]; Crestor 10 mg Oral tab 1 tab once daily [Active]; Daliresp 500 mcg Oral tab 1 tab once daily [Active]; hydralazine 25 mg Oral tab as needed [Active]; ipratropium-albuterol 0.5 mg-3 mg(2.5 mg base)/3 mL Inhl nebu 4 times per day [Active]; levothyroxine 100 mcg tab 1 tab once daily [Active]; losartan 100 mg Oral tab 1 tab once daily [Active]; Spiriva Respimat 2.5 mcg/actuation inhalation mist 2 puffs once daily [Active]; tramadol 50 mg Oral tab 1 tab as needed [Active]; Vitamin D Oral 2000 unit daily [Active]; pantoprazole 40 mg oral TbEC 1 tab once daily [Active]; - Immunization history:: Adult Immunizations up to date. - Social history:: Smoking status: unknown. - Family history:: not pertinent. - Ebola Screening: : No symptoms or risks identified at this time. - Hospitalizations: : The patient was recently seen at [facility]. Screenin:52 Abuse screen: Denies threats or abuse. Nutritional screening: No deficits noted. jd3 Tuberculosis screening: No symptoms or risk factors identified. Fall Risk Ambulatory Aid- Crutches/Cane/Walker (15 pts). Gait- Weak (10 pts.). Mental Status- Oriented to own ability (0 pts). Total Gomez Fall Scale indicates Low Risk Score (25-44 pts). Fall prevention measures have been instituted. Side Rails Up X 2 Placed close to Nursing Station Frequent Obs/Assesments occuring Family Present and informed to notify staff if they need to leave bedside. Assessment: 20:05 General: Appears distressed, uncomfortable, Behavior is cooperative, anxious. Pain: jd3 Complains of pain in chest Quality of pain is described as pressure. Neuro: Level of Consciousness is awake, alert, obeys commands, Oriented to person, place, time, situation, Appropriate for age. Cardiovascular: Heart tones S1 S2 present Rhythm is sinus tachycardia. Respiratory: Respiratory effort is labored, shallow, Respiratory pattern is tachypnea Breath sounds with crackles bilaterally. GI: No signs and/or symptoms were reported involving the gastrointestinal system. : No signs and/or symptoms were reported regarding the genitourinary system. EENT: No signs and/or symptoms were reported regarding the EENT system. Derm: Skin is intact, Skin is dry, Skin is normal, Skin temperature is warm. Musculoskeletal: Circulation, motion, and sensation intact. 20:55 Reassessment: Patient and/or family updated on plan of care and expected duration. Pain jd3 level reassessed. pt reports BiPap is helping. pt reports breathing more comfortable. Patient states feeling better. 21:16 Reassessment: No changes from previously documented assessment. Patient and/or family jd3 updated on plan of care and expected duration. Pain level reassessed. 21:59 Reassessment: No changes from previously documented assessment. Patient and/or family jd3 updated on plan of care and expected duration. Pain level reassessed. Patient states feeling better. 22:45 Reassessment: No changes from previously documented assessment. Patient and/or family jd3 updated on plan of care and expected duration. Pain level reassessed. 23:33 Reassessment: No changes from previously documented assessment. Patient and/or family jd3 updated on plan of care and expected duration. Pain level reassessed. charting continued in [facility]. 09/03 00:59 Reassessment: Mr. Benson contact at [phone]. ak1 Vital Signs: 09/02 20:13 BP 215 / 128; Pulse 133; Resp 30 S; Pulse Ox 100% on BiPAP; Weight 61.23 kg (R); Height bb 5 ft. 8 in. (172.72 cm) (R); 20:56 BP 198 / 88; Pulse 100; Resp 35 S; Pulse Ox 95% on 40% BiPAP; jd3 21:16 BP 192 / 89; Pulse 98; Resp 35 S; Temp 99.6(O); Pulse Ox 95% on 40% BiPAP; jd3 21:59 BP 157 / 83; Pulse 100; Resp 32 S; Pulse Ox 94% on 40% BiPAP; jd3 22:30 BP 135 / 72; Pulse 92; Resp 29 S; Pulse Ox 94% on BiPAP; jd3 23:00 BP 135 / 75; Pulse 90; Resp 24 S; Pulse Ox 95% on BiPAP; jd3 20:13 Body Mass Index 20.53 (61.23 kg, 172.72 cm) bb ED Course: 20:03 Patient arrived in ED. al2 20:06 Jorge Rowe MD is Attending Physician. rn 20:12 Triage completed. bb 20:13 Arm band placed on Patient placed in an exam room, on a stretcher, on oxygen, on bb cardiac sonographer, on pulse oximetry. EKG completed in triage. Results shown to MD. Family accompanied patient. 20:35 Nito Angel, RN is Primary Nurse. jd3 20:42 XRAY CXR (1 view) In Process Unspecified. EDMS 20:43 X-ray completed. Portable x-ray completed in exam room. Patient tolerated procedure kp1 well. 20:53 Patient has correct armband on for positive identification. Bed in low position. Call jd3 light in reach. Side rails up X2. Adult w/ patient. 21:20 First set of blood cultures drawn by me. bb 21:41 Yunior Montgomery MD is Hospitalizing Provider. rn 21:48 First set of blood cultures drawn Second set of blood cultures drawn by me. bb 22:00 Nick Lake MD is Hospitalizing Provider. rn 23:32 No provider procedures requiring assistance completed. Maintain EMS IV. Dressing jd3 intact. Good blood return noted. Site clean \T\ dry. Gauge \T\ site: 20 G right forearm.. Patient admitted, IV remains in place. Administered Medications: 20:47 Drug: SOLU-Medrol 125 mg Route: IVP; Site: right forearm; jd3 21:35 Follow up: Response: No adverse reaction jd3 21:58 Drug: Rocephin - (cefTRIAXone) 1 grams Route: IVPB; Infused Over: 30 mins; Site: right jd3 forearm; 23:18 Follow up: Response: No adverse reaction; IV Status: Completed infusion jd3 21:58 Drug: Zithromax 500 mg Route: IVPB; Infused Over: 1 hrs; Site: right forearm; jd3 23:18 Follow up: Response: No adverse reaction; IV Status: Completed infusion jd3 Outcome: 21:42 Decision to Hospitalize by Provider. rn 23:33 Admitted to ER Hold. Please see [facility] for further documentation. jd3 23:33 Condition: stable 23:33 Instructed on the need for admit, Demonstrated understanding of instructions. 09/03 03:45 Patient left the ED. jd3 Signatures: Dispatcher [employer] EDMS Kala Ovalles RN RN Jorge Kingsley MD MD rn Krenek, Amber, RN RN ak1 Geena Mohamud kp1 Nito Angel RN RN jd3 Carole Rubalcava al2 Corrections: (The following items were deleted from the chart) 09/02 23: 22:30 BP 135 / 72; Pulse 92bpm; Resp 29bpm; Spontaneous; Pulse Ox 94% BiPAP; jd3 jd3 : 22:30 BP 135 / 75; Pulse 90bpm; Resp 24bpm; Spontaneous; Pulse Ox 95% BiPAP; jd3 jd3
--- NOTE | 2018-09-02 21:43 | EDPHYS ---
Physician Documentation [facility] Name: Michelle Benson Age: 78 yrs Sex: Female : 1940 Arrival Date: 09/02/2018 Time: 20:03 Bed 2 Private MD: ED Physician Jorge Rowe HPI: 09/02 20:09 This 78 yrs old Female presents to ER via Unassigned with complaints of sob. rn 20:09 The patient has shortness of breath at rest. Onset: The symptoms/episode began/occurred rn at an unknown time. Duration: The symptoms are intermittent. The patient's shortness of breath is aggravated by exertion, light activity, talking, is alleviated by nothing. Severity of symptoms: At their worst the symptoms were severe in the emergency department the symptoms have improved. The patient has experienced similar episodes in the past. The patient has been recently seen by a physician:. Family reports sob for a few days, worse today while sitting at table, family states "has been over doing it", patient reports mild chest pain that began with sob. NO fever. O2 sats in 70s per EMS, given solumedrol and albuterol/atrovent 3:1 with some improvement.. Historical: - Allergies: 20:13 Codeine; bb 20:13 perindopril erbumine; bb - Home Meds: 20:38 prednisone 10 mg Oral tab 1 tab once daily [Active]; furosemide 20 mg Oral tab 1 tab bb once daily [Active]; Lyrica 75 mg Oral 1 cap daily [Active]; metoprolol tartrate 25 mg Oral tab 1 tab 2 times per day [Active]; Ambien 10 mg Oral tab 1 tab once daily [Active]; Brovana 15 mcg/2 mL inhalation nebu 2 mL 2 times per day [Active]; citalopram 40 mg tab 1 tab once daily [Active]; clopidogrel 75 mg Oral tab 1 tab once daily [Active]; Crestor 10 mg Oral tab 1 tab once daily [Active]; Daliresp 500 mcg Oral tab 1 tab once daily [Active]; hydralazine 25 mg Oral tab as needed [Active]; ipratropium-albuterol 0.5 mg-3 mg(2.5 mg base)/3 mL Inhl nebu 4 times per day [Active]; levothyroxine 100 mcg tab 1 tab once daily [Active]; losartan 100 mg Oral tab 1 tab once daily [Active]; Spiriva Respimat 2.5 mcg/actuation inhalation mist 2 puffs once daily [Active]; tramadol 50 mg Oral tab 1 tab as needed [Active]; Vitamin D Oral 2000 unit daily [Active]; pantoprazole 40 mg oral TbEC 1 tab once daily [Active]; - Immunization history:: Adult Immunizations up to date. - Social history:: Smoking status: unknown. - Family history:: not pertinent. - Ebola Screening: : No symptoms or risks identified at this time. - Hospitalizations: : The patient was recently seen at [facility]. ROS: 20:11 Constitutional: Negative for fever, chills, and weight loss, Eyes: Negative for injury, rn pain, redness, and discharge, ENT: Negative for injury, pain, and discharge, Neck: Negative for injury, pain, and swelling, Cardiovascular: + chest pain Respiratory: + sob Abdomen/GI: Negative for abdominal pain, nausea, vomiting, diarrhea, and constipation, MS/Extremity: Negative for injury and deformity, Skin: Negative for injury, rash, and discoloration, Neuro: + generalized weakness Exam: 20:11 Constitutional: This is a well developed, well nourished patient who is awake, alert, rn moderate distress with face mask Head/Face: Normocephalic, atraumatic. Eyes: Pupils equal round and reactive to light, extra-ocular motions intact. Lids and lashes normal. Conjunctiva and sclera are non-icteric and not injected. Cornea within normal limits. Periorbital areas with no swelling, redness, or edema. ENT: dry MM, no stridor Neck: NO crepitus or swelling Cardiovascular: Tachycardic, regular, no murmur Respiratory: + moderate tachypnea with retractions and crackles bilaterally, poor inspiratory air movement Abdomen/GI: soft, non-tender MS/ Extremity: Pulses equal, no cyanosis. Neurovascular intact. Full, normal range of motion. Equal circumference. Neuro: Awake and alert, GCS 15, oriented to person, place, time, and situation. Cranial nerves II-XII grossly intact. Motor strength 5/5 in all extremities. Sensory grossly intact. Vital Signs: 20:13 BP 215 / 128; Pulse 133; Resp 30 S; Pulse Ox 100% on BiPAP; Weight 61.23 kg (R); Height bb 5 ft. 8 in. (172.72 cm) (R); 20:56 BP 198 / 88; Pulse 100; Resp 35 S; Pulse Ox 95% on 40% BiPAP; jd3 21:16 BP 192 / 89; Pulse 98; Resp 35 S; Temp 99.6(O); Pulse Ox 95% on 40% BiPAP; jd3 21:59 BP 157 / 83; Pulse 100; Resp 32 S; Pulse Ox 94% on 40% BiPAP; jd3 22:30 BP 135 / 72; Pulse 92; Resp 29 S; Pulse Ox 94% on BiPAP; jd3 23:00 BP 135 / 75; Pulse 90; Resp 24 S; Pulse Ox 95% on BiPAP; jd3 20:13 Body Mass Index 20.53 (61.23 kg, 172.72 cm) bb MDM: 20:06 Patient medically screened. rn 21:38 Differential diagnosis: Anemia Bronchitis Myocardial Infarction pneumonia, Pneumothorax rn pulmonary edema, reactive airway disease. Data reviewed: vital signs, nurses notes, lab test result(s), EKG, radiologic studies, plain films, and as a result, I will admit patient. Counseling: I had a detailed discussion with the patient and/or guardian regarding: the historical points, exam findings, and any diagnostic results supporting the discharge/admit diagnosis, lab results, radiology results, the need for further work-up and treatment in the hospital. Response to treatment: the patient's symptoms have mildly improved after treatment, and as a result, I will admit patient. Admission orders: after a detailed discussion of the patient's condition and case, the admit orders are written by me. 09/02 20: Order name: Ckmb rn 09/02 20:07 Order name: Blood Culture Adult (2) rn 09/02 20:07 Order name: BMP rn 09/02 20:07 Order name: CBC with Diff; Complete Time: : rn 09/02 20:07 Order name: CPK; Complete Time: : rn 09/02 20:07 Order name: NT PRO-BNP; Complete Time: 21:32 rn 09/02 20:07 Order name: PT-INR; Complete Time: : rn 09/02 20:07 Order name: Ptt, Activated; Complete Time: 21:32 rn 09/02 20:07 Order name: Troponin (emerg Dept Use Only); Complete Time: 21:32 rn 09/02 20:07 Order name: Flu; Complete Time: 21:32 rn 09/02 20:07 Order name: ABG rn 09/02 20:08 Order name: CKMB Creatine Kinase MB; Complete Time: 21:32 EDAK 09/02 20:08 Order name: Blood Culture EDAK 09/02 20:08 Order name: Basic Metabolic Panel; Complete Time: 21:32 EDAK 09/02 20:07 Order name: XRAY CXR (1 view); Complete Time: 21:32 rn 09/02 20:07 Order name: BIPAP rn 09/02 20:46 Order name: Manual Differential; Complete Time: 21:32 EDAK 09/02 22:44 Order name: CBC with Automated Diff EDAK 09/02 22:44 Order name: CBC with Automated Diff EDAK 09/02 22:44 Order name: Comprehensive Metabolic Panel [facility] 09/02 22:44 Order name: Comprehensive Metabolic Panel [facility] 09/02 22:44 Order name: Lipid Profile [facility] 09/02 22:44 Order name: Lipid Profile [facility] 09/02 22:44 Order name: Magnesium [facility] 09/02 22:44 Order name: Magnesium [facility] 09/02 22:44 Order name: Phosphorus [facility] 09/02 22:45 Order name: Phosphorus [facility] 09/02 20:07 Order name: EKG; Complete Time: 20:08 09/02 20:07 Order name: Cardiac monitoring; Complete Time: 20:35 rn 09/02 20:07 Order name: EKG - Nurse/Tech; Complete Time: 20:35 rn 09/02 20:07 Order name: IV Saline Lock; Complete Time: 20:36 rn 09/02 20:07 Order name: Labs collected and sent; Complete Time: 20:35 rn 09/02 20:07 Order name: O2 Per Protocol; Complete Time: 20:35 rn 09/02 20:07 Order name: O2 Sat Monitoring; Complete Time: 20:35 rn 09/02 22:44 Order name: Heart Healthy EDMS Administered Medications: 20:47 Drug: SOLU-Medrol 125 mg Route: IVP; Site: right forearm; jd3 21:35 Follow up: Response: No adverse reaction jd3 21:58 Drug: Rocephin - (cefTRIAXone) 1 grams Route: IVPB; Infused Over: 30 mins; Site: right jd3 forearm; 23:18 Follow up: Response: No adverse reaction; IV Status: Completed infusion jd3 21:58 Drug: Zithromax 500 mg Route: IVPB; Infused Over: 1 hrs; Site: right forearm; jd3 23:18 Follow up: Response: No adverse reaction; IV Status: Completed infusion jd3 Disposition: 21:38 Critical Care:. rn Disposition: 09/02/18 21:42 Hospitalization ordered by Nick Lake for Inpatient Admission. Preliminary diagnosis are Pneumonia, Hypoxemia, Dyspnea, unspecified. - Bed requested for Telemetry/MedSurg (Inpatient). - Status is Inpatient Admission. jd3 - Condition is Fair. - Problem is new. - Symptoms have improved. UTI on Admission? No Critical care time excluding procedures: 21:38 Critical care time: Bedside Care: 25 minutes, Family Intervention: 5 minutes. Total rn time: 30 minutes Signatures: Dispatcher [employer] EDMS Precious Garcia RN RN mw Ballard, Brenda, RN RN bb Nieto, Roman, MD MD rn Davies, Jonathon, RN RN jd3 Corrections: (The following items were deleted from the chart) 21:46 21:42 Hospitalization Ordered by Yunior Montgomery MD for Inpatient Admission. Preliminary mw diagnosis is Pneumonia; Hypoxemia; Dyspnea, unspecified. Bed requested for Intensive Care Unit. Status is Inpatient Admission. Condition is Fair. Problem is new. Symptoms have improved. UTI on Admission? No. rn 22:01 21:46 09/02/2018 21:42 Hospitalization Ordered by Yunior Montgomery MD for Inpatient environmental health and safety intern. Preliminary diagnosis is Pneumonia; Hypoxemia; Dyspnea, unspecified. Bed requested for [facility] ER HOLD. Status is Inpatient Admission. Condition is Fair. Problem is new. Symptoms have improved. UTI on Admission? No. mw 09/03 02:58 09/02 22:01 09/02/2018 21:42 Hospitalization Ordered by Nick Lake MD for Inpatient mw Admission. Preliminary diagnosis is Pneumonia; Hypoxemia; Dyspnea, unspecified. Bed requested for [facility] ER HOLD. Status is Inpatient Admission. Condition is Fair. Problem is new. Symptoms have improved. UTI on Admission? No. rn 09/03 03:45 02:58 09/02/2018 21:42 Hospitalization Ordered by Nick Lake MD for Inpatient jd3 Admission. Preliminary diagnosis is Pneumonia; Hypoxemia; Dyspnea, unspecified. Bed requested for Telemetry/MedSurg (Inpatient). Status is Inpatient Admission. Condition is Fair. Problem is new. Symptoms have improved. UTI on Admission? No. mw
[2018-09-02] MEDS ORDERED: CEFTRIAXONE/SWI 1gm 1 GM/10 ML SYR ONE (21:47)
[2018-09-02] MEDS ORDERED: AZITHROMYCIN 500 MG/250 ML BAG ONE (21:47)
[2018-09-02 22:40] LABS: Arterial Blood Carboxyhemoglob 2.3 % (0-1.5); Blood O2 Saturation 93.3 % (92-98.5)
[2018-09-02] MEDS ORDERED: ONDANSETRON 4 MG/2 ML VIAL IV PRN (22:40)
[2018-09-02] MEDS ORDERED: MAGNESIUM HYDROXIDE 8% 30 ML PO PRN (22:40)
[2018-09-02] MEDS ORDERED: Levofloxacin500mg IV 500 MG/100 ML BAG IV SCH (23:00)
[2018-09-02] MEDS: NA CHLORIDE 0.9% 1,000 ML IV SCH (23:00)
[2018-09-03] MEDS: ALBUTEROL 2.5 MG/3 ML NEB SOL NEB SCH ×4 (02:00→19:53)
[2018-09-03] MEDS: IPRATROPIUM BROM 0.5MG/2.5ML NEB SCH ×4 (02:00→19:53)
[2018-09-03] MEDS ORDERED: ACETAMINOPHEN PO PRN (02:54)
[2018-09-03] MEDS ORDERED: D5W 1,000 ML with NA BICARB 8.4% 50 MEQ IV SCH ×2 (03:00)
[2018-09-03] MEDS ORDERED: ALBUTEROL 2.5 MG/3 ML NEB SOL ONE (03:31)
[2018-09-03] MEDS ORDERED: IPRATROPIUM BROM 0.5MG/2.5ML ONE (03:31)
[2018-09-03] MEDS ORDERED: D5W 1,000 ML IV ONE (04:25)
[2018-09-03] MEDS ORDERED: SODIUM BICARB 50 MEQ/50ML VIAL ONE (04:25)
[2018-09-03] MEDS ORDERED: NA CHLORIDE 0.9% 1,000 ML ONE (05:06)
[2018-09-03 05:37] LABS: Absolute Lymphocytes (CBC) 0.3 K/uL (0.7-4.9); Absolute Monocytes 0.9 K/uL (0.1-1.3); Basophils % 0.2 % (0-1.3); Hematocrit 33.1 % (36.0-45.0); Lymphocytes % 1.5 % (15.3-44.8); MCH 26.6 pg (27.0-35.0); MCV 83.9 fL (80-100); MPV 8.5 fL (7.6-11.3); Monocytes % 4.8 % (3.3-12.3); RBC Red Blood Cell Count 3.94 M/uL (3.86-4.86)
[2018-09-03 05:53] LABS: Albumin 2.8 g/dL (3.4-5.0); Bilirubin Total 0.4 mg/dL (0.2-1.0); Magnesium 1.9 mg/dL (1.8-2.4); Phosphorus 3.4 mg/dL (2.5-4.9); Potassium 4.6 mmol/L (3.5-5.1); Protein, Total 5.8 g/dL (6.4-8.2)
[2018-09-03] MEDS: METHYLPREDNISOLONE 125 MG INJ IV SCH ×4 (05:56→17:08)
--- NOTE | 2018-09-03 06:13 | EKG ---
Test Date: 2018-09-02 Test Time: 20:18:27 Security Researcher: RICARDO MEASUREMENT RESULTS: Intervals: Rate: 119 UT: 144 QRSD: 86 QT: 318 QTc: 447 [place]: P: 69 UT: 144 QRS: 50 T: 102 INTERPRETIVE STATEMENTS: Sinus tachycardia Possible Left atrial enlargement Anterior infarct, age undetermined Abnormal ECG Compared to ECG 01/09/2018 21:09:19 Myocardial infarct finding now present Ventricular premature complex(es) no longer present Electronically Signed On 09-03-18 06:12:59 [employer]Y [employer]Y CHIEF by Prashant Patiño
[2018-09-03 06:24] VITALS: BMI 22.6
[2018-09-03 07:16] LABS: Blood Morphology Comment NOT SEEN (NOT SEEN); Platelet Estimate ADEQ
[2018-09-03] MEDS: ARFORMOTEROL TARTRATE 15 MCG/2 ML VIAL.NEB IH SCH ×2 (07:40→19:50)
[2018-09-03] MEDS ORDERED: PNEUMOCOCCAL VACCINE 0.5 ML IMVAC ONE (08:00)
[2018-09-03] MEDS ORDERED: INFLUENZA VACCINE (for 3y+) 0.5 ML DOSE IMVAC ONE (08:00)
[2018-09-03] MEDS ORDERED: METOPROLOL TAR 25 MG TAB PO SCH (09:00)
[2018-09-03] MEDS: ENOXAPARIN 40 MG/0.4 ML SQ SCH (10:14)
[2018-09-03] MEDS: BENZONATATE 100 MG CAP PO SCH (10:16)
[2018-09-03] MEDS: CLOPIDOGREL 75 MG TABLET PO SCH (10:16)
[2018-09-03] MEDS: ROFLUMILAST 500 MCG TABLET PO SCH (10:18)
--- NOTE | 2018-09-03 10:40 | RAD REPORT ---
EXAM DESCRIPTION: CT - Chest For Pe Angio - 09/03/2018 9:47 am CLINICAL HISTORY: Chest pain. PE COMPARISON: Chest For Pe Angio dated 01/10/2018; Chest Single View dated 09/02/2018; Chest Single View dated 06/21/2018 TECHNIQUE: CT angiogram of the pulmonary arteries was performed with MIP. All CT scans are performed using dose optimization technique as appropriate and may include automated exposure control or mA/KV adjustment according to patient size. FINDINGS: No evidence of pulmonary thromboembolism. No acute aortic finding demonstrated. Diffuse COPD is present. Areas of airspace consolidation are present in the right lower lobe and righ t middle lobe, compatible with pneumonia. Trace right pleural effusion. No concerning bony finding. IMPRESSION: No evidence of pulmonary thromboembolism. COPD with right lower lobe and right middle lobe infiltrate compatible with pneumonia.
[2018-09-03] MEDS: NA CHLORIDE 0.9% 1,000 ML IV SCH (12:00)
--- NOTE | 2018-09-03 13:34 | P.HP ---
Certification for Inpatient Patient admitted to: Inpatient With expected LOS: >2 Midnights Patient will require the following post-hospital care: None Practitioner: I am a practitioner with admitting privileges, knowledge of patient current condition, hospital course, and medical plan of care. Services: Services provided to patient in accordance with Admission requirements found in Title 42 Section 412.3 of the Code of Federal Regulations Patient History Date of Service: 09/03/18 Reason for admission: COPD exacerbation History of Present Illness: patient is a 78-year-old female who came into the hospital short of breath. Patient was having a hard time breathing. She slowly has gotten worse over the last few days. She came into the emergency room for further evaluation. In the emergency room she was severely hypoxic and she was started on a BiPAP. She was given nebs, steroids, and antibiotics. Slowly her clinical symptoms have improved. However, patient is still requiring BiPAP support. We will slowly wean her off. She will be admitted to the hospital for further treatment. Allergies codeine Allergy (Verified 01/10/18 02:21) Unknown perindopril erbumine [From Aceon] Allergy (Verified 01/10/18 02:21) UNKNOWN Home Medications: Acetaminophen [Acetaminophen ER] 650 mg PO PRN PRN 09/03/18 Albuterol Inhaler [Ventolin Inhaler] 2 puff IH Q4H PRN 09/03/18 Arformoterol Tartrate [Brovana] 2 ml NEB PRN PRN 09/03/18 Buproprion S.r. [Wellbutrin SR] 100 mg PO BID 09/03/18 Citalopram [Celexa] 40 mg PO DAILY 09/03/18 Clopidogrel Bisulfate [Plavix] 75 mg PO DAILY 09/03/18 Ipratropium/Albuterol Sulfate [Iprat-Albut 0.5-3(2.5) mg/3 ml] 3 ml PO QID PRN 09/03/18 Levothyroxine [Synthroid] 100 mcg PO [id number] 09/03/18 Losartan Potassium [Cozaar] 100 mg PO DAILY 09/03/18 Potassium Chloride [Klor-Con] 20 meq PO DAILY 09/03/18 Pregabalin [Lyrica] 75 mg PO DAILY 09/03/18 Roflumilast [Daliresp] 500 mcg PO DAILY 09/03/18 Rosuvastatin [Crestor] 10 mg PO BEDTIME 09/03/18 Spironolactone [Aldactone] 50 mg PO BID 09/03/18 Tiotropium [place] [Spiriva Respimat] 2 puff PO DAILY 09/03/18 Zolpidem Tartrate [Ambien] 5 mg PO BEDTIME PRN 09/03/18 - Past Medical/Surgical History Has patient received pneumonia vaccine in the past: No Diabetic: No -: History of breast cancer -: History of throat cancer -: Hypertension -: Hypothyroidism -: COPD, steroid and oxygen-dependent -: Peripheral vascular disease -: Carotid arterial disease -: CHF -: Hyperlipidemia -: Obstructive sleep apnea -: Neuropathy -: Tobacco abuse -: Hysterectomy -: Hemorrhoidectomy -: Radiation to the vocal cords -: Stents to the lower extremity and carotid -: Bilateral eye surgery -: Left-sided mastectomy -: chemotherapy Psychosocial/ Personal History: Patient is . She has children. She does not work. - Family History Father Medical History: Heart disease Mother Medical History: Cancer Sister Medical History: Cancer Notes: Brother Medical History: Heart disease Notes: - Social History Smoking Status: Smoker current status UNK Alcohol use: No CD- Drugs: No Caffeine use: No Place of Residence: Home Review of Systems 10-point ROS is otherwise unremarkable Physical Examination - Vital Signs Temperature: 97.0 F Blood Pressure: 157/68 Pulse: 86 Respirations: 20 Pulse Ox (%): 98 - Physical Exam General: Alert, In no apparent distress, Oriented x3 HEENT: Atraumatic, PERRLA, Mucous membr. moist/pink, EOMI, Sclerae nonicteric Neck: Supple, 2+ carotid pulse no bruit, No LAD, Without JVD or thyroid abnormality Respiratory: Diminished, Expiratory wheezes Cardiovascular: Regular rate/rhythm, Normal S1 S2 Gastrointestinal: Normal bowel sounds, Soft and benign, Non-distended, No tenderness Musculoskeletal: No tenderness Integumentary: No rashes Neurological: Normal gait, Normal speech, Normal strength at 5/5 x4 extr, Normal tone, Normal affect Lymphatics: No axilla or inguinal lymphadenopathy - Studies Laboratory Data (last 24 hrs) 09/02/18 20:12: PT 11.7, INR 0.99, APTT 23.2 L 09/02/18 20:12: WBC 19.0 H, Hgb 12.3, Hct 39.3, Plt Count 249 09/02/18 20:12: Sodium 138, Potassium 4.6, BUN 24 H, Creatinine 1.40 H, Glucose 117 H Microbiology Data (last 24 hrs): 09/02/18 20:19 Nasopharnyx Influenza Type A Antigen Screen - Final 09/02/18 20:19 Nasopharnyx Influenza Type B Antigen Screen - Final Assessment & Plan - Problems (Diagnosis) (1) Respiratory failure Current Visit: Yes Status: Acute (2) Hypertensive disorder, systemic arterial Current Visit: No Status: Active (3) COPD exacerbation Onset Date: 02/17/17 Current Visit: No Status: Acute (4) Carotid arterial disease Onset Date: 01/11/18 Current Visit: No Status: Chronic (5) Hyperlipidemia Onset Date: 01/11/18 Current Visit: No Status: Chronic Qualifiers: (6) Hypertension Onset Date: 01/11/18 Current Visit: No Status: Chronic Qualifiers: (7) Hypothyroidism Onset Date: 01/11/18 Current Visit: No Status: Chronic Qualifiers: (8) Obstructive sleep apnea Onset Date: 01/11/18 Current Visit: No Status: Chronic - Plan -nebs, steroids, and antibiotics -O2 per protocol. -BiPAP support -repeat chest x-ray -pulmonary consultation -Continue with monitoring volume status -may need to gently diurese -await CT scan results Discharge Plan: Home Plan to discharge in: 48 Hours - Advance Directives Does patient have a Living Will: No Does patient have a Durable POA for Healthcare: No - Code Status/Comfort Care Code Status Assessed: Yes Code Status: Full Code Critical Care: No Time Spent Managing PTS Care (In Minutes): 50
[2018-09-03] MEDS: NICOTINE 21 MG/PAT TD SCH (14:13)
[2018-09-03] MEDS ORDERED: HYDRALAZINE HCL 25 MG TABLET PO PRN (16:16)
[2018-09-03] MEDS ORDERED: ARFORMOTEROL TARTRATE 15 MCG/2 ML VIAL.NEB NEB PRN (16:16)
[2018-09-03] MEDS ORDERED: BUPROPRION HCL S.R. 150MG TAB PO SCH (21:00)
[2018-09-03] MEDS: Levofloxacin 250mg IV 250 MG/50 ML BAG IV SCH (22:27)
[2018-09-03] MEDS: buPROPion HCl 100 MG TAB PO SCH (22:28)
[2018-09-03] MEDS: SPIRONOLACTONE 25 MG TABLET PO SCH (22:28)
[2018-09-03] MEDS: ROSUVASTATIN 10 MG TAB PO SCH (22:28)
[2018-09-04] MEDS: METHYLPREDNISOLONE 125 MG INJ IV SCH ×2 (00:37→06:07)
[2018-09-04] MEDS: NA CHLORIDE 0.9% 1,000 ML IV SCH (00:37)
[2018-09-04] MEDS: ALBUTEROL 2.5 MG/3 ML NEB SOL NEB SCH ×4 (02:20→20:05)
[2018-09-04] MEDS: IPRATROPIUM BROM 0.5MG/2.5ML NEB SCH ×4 (02:20→20:05)
[2018-09-04] MEDS: LEVOTHYROXINE SOD 0.1 MG TAB PO SCH (06:07)
[2018-09-04 06:29] LABS: Magnesium 2.5 mg/dL (1.8-2.4); Phosphorus 2.7 mg/dL (2.5-4.9); Potassium 4.2 mmol/L (3.5-5.1)
[2018-09-04] MEDS: ARFORMOTEROL TARTRATE 15 MCG/2 ML VIAL.NEB IH SCH ×2 (07:53→20:05)
[2018-09-04] MEDS ORDERED: ROFLUMILAST 500 MCG TABLET PO SCH (09:00)
[2018-09-04] MEDS ORDERED: CLOPIDOGREL 75 MG TABLET PO SCH (09:00)
[2018-09-04] MEDS: CITALOPRAM 10 MG TABLET PO SCH (09:06)
[2018-09-04] MEDS: ENOXAPARIN 40 MG/0.4 ML SQ SCH (09:06)
[2018-09-04] MEDS: METOPROLOL XL 25 MG TAB PO SCH (09:07)
[2018-09-04] MEDS: ROFLUMILAST 500 MCG TABLET PO SCH (09:07)
[2018-09-04] MEDS: CLOPIDOGREL 75 MG TABLET PO SCH (09:07)
[2018-09-04] MEDS: LOSARTAN POTASSIUM 50 MG TABLET PO SCH (09:08)
[2018-09-04] MEDS: PREGABALIN 75 MG CAP PO SCH (09:08)
[2018-09-04] MEDS: SPIRONOLACTONE 25 MG TABLET PO SCH ×2 (09:08→20:43)
[2018-09-04] MEDS: BENZONATATE 100 MG CAP PO SCH (09:09)
[2018-09-04] MEDS: NICOTINE 21 MG/PAT TD SCH (09:09)
[2018-09-04] MEDS: buPROPion HCl 100 MG TAB PO SCH ×2 (10:14→20:44)
--- NOTE | 2018-09-04 15:03 | P.PN ---
Subjective Date of Service: 09/04/18 Chief Complaint: COPD exacerbation Subjective: No C/O voiced, Tolerating diet, Ambulating, Improving, Working w/ PT , Doing well Review of Systems 10-point ROS is otherwise unremarkable Physical Examination - Vital Signs Temperature: 99.1 F Blood Pressure: 148/68 Pulse: 87 Respirations: 18 Pulse Ox (%): 95 - Physical Exam General: Alert, Oriented x3, Mild distress HEENT: Atraumatic, PERRLA, EOMI Neck: Supple, JVD not distended Respiratory: Normal air movement, Expiratory wheezes, Inspiratory wheezes Cardiovascular: Regular rate/rhythm, Normal S1 S2 Gastrointestinal: Normal bowel sounds, Soft and benign, Non-distended, No tenderness Musculoskeletal: No tenderness Integumentary: No rashes Neurological: Normal speech, Normal tone, Normal affect Lymphatics: No axilla or inguinal lymphadenopathy - Studies Medications List Reviewed: Yes Assessment And Plan - Current Problems (Diagnosis) (1) COPD exacerbation Onset Date: 02/17/17 Current Visit: No Status: Acute Plan: COPD exacerbation most likely secondary to pneumonia. -duo nebs, steroids, oxygen, BiPAP p.r.n. -pulmonology consulted. Awaiting recommendations at this time (2) Pneumonia Current Visit: No Status: Acute Plan: Patient with right lower lobe and right upper lobe pneumonia -sputum cultures pending at this time. Patient is currently on IV Levaquin. -Will continue here in the hospital until cultures negative -pulmonology has been consulted. Awaiting recommendations at this time. Qualifiers: Pneumonia type: due to unspecified organism (3) Coronary arteriosclerosis Onset Date: 01/11/18 Current Visit: No Status: Chronic (4) Depressive disorder Onset Date: 01/11/18 Current Visit: No Status: Chronic (5) Hyperlipidemia Onset Date: 01/11/18 Current Visit: No Status: Chronic Qualifiers: (6) Hypertension Onset Date: 01/11/18 Current Visit: No Status: Chronic Qualifiers: (7) Hypothyroidism Onset Date: 01/11/18 Current Visit: No Status: Chronic Qualifiers: (8) Obstructive sleep apnea Onset Date: 01/11/18 Current Visit: No Status: Chronic (9) Peripheral vascular disease Onset Date: 06/21/18 Current Visit: No Status: Chronic - Plan Pending clinical improvement at this time. Awaiting pulmonology recommended Discharge Plan: Home Plan to discharge in: 48 Hours - Code Status/Comfort Care Code Status Assessed: Yes Critical Care: No
[2018-09-04] MEDS: ROSUVASTATIN 10 MG TAB PO SCH (20:43)
[2018-09-04] MEDS: Levofloxacin 250mg IV 250 MG/50 ML BAG IV SCH (20:44)
[2018-09-04] MEDS: predniSONE 10 MG TAB PO SCH (20:44)
[2018-09-05] MEDS: ALBUTEROL 2.5 MG/3 ML NEB SOL NEB SCH ×4 (02:35→20:30)
[2018-09-05] MEDS: IPRATROPIUM BROM 0.5MG/2.5ML NEB SCH ×4 (02:35→20:30)
[2018-09-05] MEDS: ZOLPIDEM TARTRATE 5 MG TABLET PO PRN ×2 (04:06→22:11)
[2018-09-05] MEDS: TRAMADOL HCL 50 MG TAB PO PRN (04:06)
[2018-09-05] MEDS: LEVOTHYROXINE SOD 0.1 MG TAB PO SCH (06:07)
[2018-09-05] MEDS: ARFORMOTEROL TARTRATE 15 MCG/2 ML VIAL.NEB IH SCH ×2 (08:23→20:30)
[2018-09-05] MEDS: ENOXAPARIN 40 MG/0.4 ML SQ SCH (08:26)
[2018-09-05] MEDS: NICOTINE 21 MG/PAT TD SCH (08:27)
[2018-09-05] MEDS: CITALOPRAM 10 MG TABLET PO SCH (08:29)
[2018-09-05] MEDS: PREGABALIN 75 MG CAP PO SCH (08:29)
[2018-09-05] MEDS: CLOPIDOGREL 75 MG TABLET PO SCH (08:29)
[2018-09-05] MEDS: predniSONE 10 MG TAB PO SCH ×2 (08:29→22:03)
[2018-09-05] MEDS: LOSARTAN POTASSIUM 50 MG TABLET PO SCH (08:29)
[2018-09-05] MEDS: BENZONATATE 100 MG CAP PO SCH (08:30)
[2018-09-05] MEDS: METOPROLOL XL 25 MG TAB PO SCH (08:30)
[2018-09-05] MEDS: SPIRONOLACTONE 25 MG TABLET PO SCH ×2 (08:30→22:03)
[2018-09-05] MEDS: buPROPion HCl 100 MG TAB PO SCH ×2 (08:31→22:03)
[2018-09-05] MEDS: PANTOPRAZOLE 40MG TABLET PO SCH (08:31)
[2018-09-05] MEDS: ACETAMINOPHEN 500 MG TAB PO PRN (10:34)
[2018-09-05] MEDS: ROFLUMILAST 500 MCG TABLET PO SCH (10:39)
--- NOTE | 2018-09-05 13:24 | P.PN ---
Subjective Date of Service: 09/05/18 Chief Complaint: COPD exacerbation Pt seen and examined at bedside. Chart reviewed and Case DW with Pulmonology. Overnight doing well overall. No C/o at this time. Review of Systems 10-point ROS is otherwise unremarkable Physical Examination - Vital Signs Temperature: 99.2 F Blood Pressure: 154/79 Pulse: 91 Respirations: 18 Pulse Ox (%): 97 - Physical Exam General: Alert, In no apparent distress HEENT: Atraumatic, PERRLA, EOMI Neck: Supple, JVD not distended Respiratory: Normal air movement, Expiratory wheezes, Inspiratory wheezes Cardiovascular: Regular rate/rhythm, Normal S1 S2 Gastrointestinal: Normal bowel sounds, No tenderness Musculoskeletal: No tenderness Integumentary: No rashes Neurological: Normal speech, Normal tone, Normal affect Lymphatics: No axilla or inguinal lymphadenopathy - Studies Medications List Reviewed: Yes Assessment And Plan - Current Problems (Diagnosis) (1) COPD exacerbation Onset Date: 02/17/17 Current Visit: No Status: Acute Plan: COPD exacerbation most likely secondary to pneumonia. -duonebs, steroids, oxygen, BiPAP p.r.n. -pulmonology consulted. Awaiting recommendations at this time (2) Pneumonia Current Visit: No Status: Acute Plan: Patient with right lower lobe and right upper lobe pneumonia -sputum cultures pending at this time. Patient is currently on IV Levaquin. -Will continue here in the hospital until cultures negative -pulmonology has been consulted. Awaiting recommendations at this time. Qualifiers: Pneumonia type: due to unspecified organism (3) Coronary arteriosclerosis Onset Date: 01/11/18 Current Visit: No Status: Chronic (4) Depressive disorder Onset Date: 01/11/18 Current Visit: No Status: Chronic (5) Hyperlipidemia Onset Date: 01/11/18 Current Visit: No Status: Chronic Qualifiers: (6) Hypertension Onset Date: 01/11/18 Current Visit: No Status: Chronic Qualifiers: (7) Hypothyroidism Onset Date: 01/11/18 Current Visit: No Status: Chronic Qualifiers: (8) Obstructive sleep apnea Onset Date: 01/11/18 Current Visit: No Status: Chronic (9) Peripheral vascular disease Onset Date: 06/21/18 Current Visit: No Status: Chronic - Plan Pending clinical improvement at this time. Awaiting pulmonology recommendation. Continue IV Abx and Duonebs for COPD exacerbation and PNA Discharge Plan: Home Plan to discharge in: 48 Hours - Code Status/Comfort Care Code Status Assessed: Yes Critical Care: No
[2018-09-05 20:44] LABS: Urine Appearance CLEAR; Urine Bilirubin NEGATIVE (NEG); Urine Blood NEGATIVE (NEG); Urine Color YELLOW; Urine Glucose NEGATIVE (NEG); Urine Protein TRACE (NEG); Urine Specific Gravity 1.025 (1.005-1.030); Urine pH 6.5 (5.0-7.0)
[2018-09-05] MEDS ORDERED: Levofloxacin500mg IV 500 MG/100 ML BAG IV SCH (21:00)
[2018-09-05 21:04] LABS: Urine Bacteria <20 /HPF (<20); Urine Culture Reflex Order NOT NEEDED; Urine RBC <5 /HPF (NONE SEEN)
[2018-09-05] MEDS: ROSUVASTATIN 10 MG TAB PO SCH (22:03)
[2018-09-06] MEDS: IPRATROPIUM BROM 0.5MG/2.5ML NEB SCH ×4 (02:30→20:36)
[2018-09-06] MEDS: ALBUTEROL 2.5 MG/3 ML NEB SOL NEB SCH ×6 (02:30→20:36)
[2018-09-06] MEDS: LEVOTHYROXINE SOD 0.1 MG TAB PO SCH (05:29)
[2018-09-06] MEDS: ACETAMINOPHEN 500 MG TAB PO PRN ×2 (06:36→22:22)
[2018-09-06] MEDS: ARFORMOTEROL TARTRATE 15 MCG/2 ML VIAL.NEB IH SCH ×2 (07:34→20:36)
[2018-09-06] MEDS: PREGABALIN 75 MG CAP PO SCH (08:37)
--- NOTE | 2018-09-06 08:37 | P.CNS ---
Date of Consult: 09/06/18 Reason for Consult: Pneumonia Chief Complaint: COPD with pneumonia History of Present Illness: Patient is 78 years of age with terminal COPD well known to me she was doing well got sick over the Thanksgiving time worsening shortness of breath productive cough admitted to the hospital with a right lower lobe pneumonia she is doing somewhat better prior to that patient was doing much better having some problem with a noninvasive and that was just recently repaired a leaf due to war overflow denies any chest pain looks like she is not back to her baseline Allergies codeine Allergy (Verified 01/10/18 02:21) Unknown perindopril erbumine [From Aceon] Allergy (Verified 01/10/18 02:21) UNKNOWN Home Medications: Acetaminophen [Acetaminophen ER] 650 mg PO PRN PRN 09/03/18 Albuterol Inhaler [Ventolin Inhaler] 2 puff IH Q4H PRN 09/03/18 Arformoterol Tartrate [Brovana] 2 ml NEB PRN PRN 09/03/18 Buproprion S.r. [Wellbutrin SR] 100 mg PO BID 09/03/18 Citalopram [Celexa] 40 mg PO DAILY 09/03/18 Clopidogrel Bisulfate [Plavix] 75 mg PO DAILY 09/03/18 Hydralazine [Apresoline*] 25 mg PO DAILY PRN 09/03/18 Ipratropium/Albuterol Sulfate [Iprat-Albut 0.5-3(2.5) mg/3 ml] 3 ml PO QID PRN 09/03/18 Levothyroxine [Synthroid] 100 mcg PO [id number] 09/03/18 Losartan Potassium [Cozaar] 100 mg PO DAILY 09/03/18 Metoprolol Succinate [Toprol Xl*] 25 mg PO DAILY 09/03/18 Pantoprazole Sodium [Protonix] 40 mg PO DAILY 09/03/18 Potassium Chloride [Klor-Con] 20 meq PO DAILY 09/03/18 Pregabalin [Lyrica] 75 mg PO DAILY 09/03/18 Roflumilast [Daliresp] 500 mcg PO DAILY 09/03/18 Rosuvastatin [Crestor] 10 mg PO BEDTIME 09/03/18 Spironolactone [Aldactone] 50 mg PO BID 09/03/18 Tiotropium [place] [Spiriva Respimat] 2 puff PO DAILY 09/03/18 Tramadol HCl [Ultram] 50 mg PO Q6HP PRN 09/03/18 Zolpidem Tartrate [Ambien] 5 mg PO BEDTIME PRN 09/03/18 - Past Medical/Surgical History Diabetic: No -: History of breast cancer -: History of throat cancer -: Hypertension -: Hypothyroidism -: COPD, steroid and oxygen-dependent -: Peripheral vascular disease -: Carotid arterial disease -: CHF -: Hyperlipidemia -: Obstructive sleep apnea -: Neuropathy -: Tobacco abuse -: Hysterectomy -: Hemorrhoidectomy -: Radiation to the vocal cords -: Stents to the lower extremity and carotid -: Bilateral eye surgery -: Left-sided mastectomy -: chemotherapy Psychosocial/ Personal History: Patient is . She has children. She does not work. - Family History Father Medical History: Heart disease Mother Medical History: Cancer Sister Medical History: Cancer Notes: Brother Medical History: Heart disease Notes: - Social History Smoking Status: Unknown if ever smoked Alcohol use: No CD- Drugs: No Caffeine use: No Place of Residence: Home Review of Systems 10-point ROS is otherwise unremarkable General: Weakness Respiratory: Cough, Shortness of Breath Physical Examination Temp Pulse Resp BP Pulse Ox 98.2 F 85 20 162/74 H 98 09/06/18 00:00 09/06/18 00:00 09/06/18 00:00 09/06/18 05:00 09/06/18 00:00 General: Alert, Oriented x3 HEENT: Atraumatic Neck: Supple Respiratory: Crackles/rales (Some crackles of the right base), Expiratory wheezes Cardiovascular: No edema, Regular rate/rhythm, Normal S1 S2 Gastrointestinal: Normal bowel sounds, Soft and benign Musculoskeletal: No clubbing, No swelling - Problems (1) Right lower lobe pneumonia Current Visit: Yes Status: Acute Plan: Patient is 78 years of age with a history of terminal COPD compliant with the medication admitted with right lower lobe pneumonia as a productive cough elevated white count patient's oxygenation is satisfactory cultures are so far pending she appears to be doing well possible discharge today or tomorrow on levofloxacin 500 mg a day for 7 days cultures are still pending hemodynamically stable Qualifiers: Aspiration pneumonia type: unspecified
[2018-09-06] MEDS: SPIRONOLACTONE 25 MG TABLET PO SCH ×2 (08:38→22:23)
[2018-09-06] MEDS: BENZONATATE 100 MG CAP PO SCH (08:38)
[2018-09-06] MEDS: LOSARTAN POTASSIUM 50 MG TABLET PO SCH (08:40)
[2018-09-06] MEDS: ENOXAPARIN 40 MG/0.4 ML SQ SCH (08:41)
[2018-09-06] MEDS: PANTOPRAZOLE 40MG TABLET PO SCH (08:41)
[2018-09-06] MEDS: METOPROLOL XL 25 MG TAB PO SCH (08:41)
[2018-09-06] MEDS: NICOTINE 21 MG/PAT TD SCH (08:42)
[2018-09-06] MEDS: ROFLUMILAST 500 MCG TABLET PO SCH (08:43)
[2018-09-06] MEDS: predniSONE 10 MG TAB PO SCH ×2 (08:43→22:23)
[2018-09-06] MEDS: CLOPIDOGREL 75 MG TABLET PO SCH (08:46)
[2018-09-06] MEDS: CITALOPRAM 10 MG TABLET PO SCH (08:46)
[2018-09-06] MEDS: buPROPion HCl 100 MG TAB PO SCH ×2 (08:49→22:22)
--- NOTE | 2018-09-06 09:14 | RAD REPORT ---
EXAM DESCRIPTION: RAD - Chest Single View - 09/06/2018 8:51 am CLINICAL HISTORY: pneumonia Chest pain. COMPARISON: Chest Single View dated 09/02/2018; Chest Single View dated 06/21/2018; Chest Single View dated 06/20/2018; Chest Single View dated 06/19/2018 FINDINGS: Portable technique limits examination quality. Moderate improvement is seen in the right lower lobe pneumonia since comparative study. The heart is mildly enlarged in size. Aortic atherosclerosis is seen. No displaced fractures. IMPRESSION: Moderate improvement in right lower lobe pneumonia.
[2018-09-06 09:46] LABS: Absolute Lymphocytes (CBC) 0.8 K/uL (0.7-4.9); Absolute Neutrophil 11.3 K/uL (1.8-8.0); Basophils % 0.1 % (0-1.3); Eosinophils % 0.1 % (0-4.4); Hematocrit 35.6 % (36.0-45.0); Lymphocytes % 6.2 % (15.3-44.8); MCV 83.6 fL (80-100); MPV 8.1 fL (7.6-11.3); Monocytes % 7.5 % (3.3-12.3); RBC Red Blood Cell Count 4.26 M/uL (3.86-4.86)
--- NOTE | 2018-09-06 10:27 | EKG ---
Test Date: 2018-09-06 Test Time: 08:41:01 Poacher Wringer Operator: NIDIA MEASUREMENT RESULTS: Intervals: Rate: 161 [place]: QRSD: 86 QT: 300 QTc: 491 [place]: P: IL: QRS: 61 T: 80 INTERPRETIVE STATEMENTS: Atrial fibrillation with rapid ventricular response with premature ventricular or aberrantly conducted complexes Nonspecific ST and T wave abnormality, probably digitalis effect Abnormal ECG Compared to ECG 09/02/2018 20:18:27 Ventricular premature complex(es) now present ST (T wave) deviation now present Sinus tachycardia no longer present Myocardial infarct finding no longer present Electronically Signed On 09-06-18 10:27:08 DATA LEAD by Prashant Patiño
[2018-09-06] MEDS: levoFLOXacin 500 MG TAB PO SCH (10:43)
--- NOTE | 2018-09-06 12:40 | EKG ---
Test Date: 2018-09-06 Test Time: 09:56:58 Chemical Dependency Nurse: NIDIA MEASUREMENT RESULTS: Intervals: Rate: 98 SC: 122 QRSD: 88 QT: 346 QTc: 441 [place]: P: 61 SC: 122 QRS: 46 T: 62 INTERPRETIVE STATEMENTS: Normal sinus rhythm Possible Left atrial enlargement Borderline ECG Compared to ECG 09/06/2018 08:41:01 Atrial fibrillation no longer present Ventricular premature complex(es) no longer present ST (T wave) deviation no longer present Electronically Signed On 09-06-18 12:39:41 [employer]ION [employer]URE SET WORKER by Prashant Patiño
--- NOTE | 2018-09-06 19:39 | PN ---
Date of Progress Note: 09/06/2018 The patient states she feels considerably better, however, her x-ray showed moderate improvement in p neumonia. She is still coughing up a marked amount of very purulent-looking material. In view of th is, we will keep her for another 24-48 hours and have her possibility of discharge pending on the cul ture results at that time. HR/MODL Voice ID: [id number] Report ID: [id number]
[2018-09-06] MEDS: ROSUVASTATIN 10 MG TAB PO SCH (22:22)
[2018-09-06] MEDS: ZOLPIDEM TARTRATE 5 MG TABLET PO PRN (22:23)
[2018-09-07] MEDS: ALBUTEROL 2.5 MG/3 ML NEB SOL NEB SCH ×4 (00:33→13:05)
[2018-09-07] MEDS: IPRATROPIUM BROM 0.5MG/2.5ML NEB SCH ×4 (00:33→13:05)
[2018-09-07] MEDS: ACETAMINOPHEN 500 MG TAB PO PRN (03:01)
[2018-09-07] MEDS: LEVOTHYROXINE SOD 0.1 MG TAB PO SCH (05:35)
[2018-09-07] MEDS: TRAMADOL HCL 50 MG TAB PO PRN (05:39)
[2018-09-07] MEDS: ARFORMOTEROL TARTRATE 15 MCG/2 ML VIAL.NEB IH SCH (07:30)
[2018-09-07] MEDS: ROFLUMILAST 500 MCG TABLET PO SCH (09:00)
[2018-09-07] MEDS: NICOTINE 21 MG/PAT TD SCH (09:43)
[2018-09-07] MEDS: ENOXAPARIN 40 MG/0.4 ML SQ SCH (09:43)
[2018-09-07] MEDS: PREGABALIN 75 MG CAP PO SCH (09:44)
[2018-09-07] MEDS: CITALOPRAM 10 MG TABLET PO SCH (09:44)
[2018-09-07] MEDS: SPIRONOLACTONE 25 MG TABLET PO SCH (09:44)
[2018-09-07] MEDS: BENZONATATE 100 MG CAP PO SCH (09:45)
[2018-09-07] MEDS: LOSARTAN POTASSIUM 50 MG TABLET PO SCH (09:45)
[2018-09-07] MEDS: levoFLOXacin 500 MG TAB PO SCH (09:45)
[2018-09-07] MEDS: PANTOPRAZOLE 40MG TABLET PO SCH (09:45)
[2018-09-07] MEDS: CLOPIDOGREL 75 MG TABLET PO SCH (09:45)
[2018-09-07] MEDS: predniSONE 10 MG TAB PO SCH (09:46)
[2018-09-07] MEDS: METOPROLOL XL 25 MG TAB PO SCH (09:46)
[2018-09-07] MEDS: buPROPion HCl 100 MG TAB PO SCH (09:46)
[2018-09-07 09:48] VITALS: BP 162/73; TEMP 98.4
--- NOTE | 2018-09-07 12:52 | P.PN ---
Subjective Date of Service: 09/07/18 Chief Complaint: COPD with pneumonia Subjective: Improving (Patient is doing much better still has productive cough wants to go home) Review of Systems Unremarkable Physical Examination - Vital Signs Temperature: 98.4 F Blood Pressure: 162/73 Pulse: 94 Respirations: 18 Pulse Ox (%): 95 - Physical Exam General: Alert, Oriented x3 HEENT: Atraumatic Neck: Supple Respiratory: Rhonchi/gurgles Cardiovascular: No edema, Regular rate/rhythm - Studies Medications List Reviewed: Yes Assessment & Plan - Problems (Diagnosis) (1) Right lower lobe pneumonia Current Visit: Yes Status: Acute Plan: Patient is 78 years of age with a history of terminal COPD compliant with the medication admitted with right lower lobe pneumonia as a productive cough elevated white count patient's oxygenation is satisfactory cultures are so far pending she appears to be doing well possible discharge today or tomorrow on levofloxacin 500 mg a day for 7 days cultures are still pending hemodynamically stable cultures are so far negative patient can be discharged home Qualifiers: Aspiration pneumonia type: unspecified
[2018-09-07 13:31] VITALS: O2SAT 99
== END 2018-09-07 16:29 | disposition home or self-care (01) | DRG 193 ==
LOC: ER 20:02 → ERHOLD 23:04 → 4TH 09-03 03:22
PROVIDERS: ADMIT Hospitalist; ATTEND Hospitalist
PROC: 5A09357 Assistance with Respiratory Ventilation, Less than 24 Consecutive Hours, Continuous Positive Airway Pressure (ICD-10-PCS; principal; 2018-09-02)
DX: J18.9 Pneumonia, unspecified organism (principal); J96.01 Acute respiratory failure with hypoxia; J44.1 Chronic obstructive pulmonary disease with (acute) exacerbation; I50.42 Chronic combined systolic (congestive) and diastolic (congestive) heart failure; J44.0 Chronic obstructive pulmonary disease with (acute) lower respiratory infection; I10 Essential (primary) hypertension; E03.9 Hypothyroidism, unspecified; I73.9 Peripheral vascular disease, unspecified; E78.5 Hyperlipidemia, unspecified; G47.33 Obstructive sleep apnea (adult) (pediatric); I65.29 Occlusion and stenosis of unspecified carotid artery; F32.9 Major depressive disorder, single episode, unspecified; Z85.3 Personal history of malignant neoplasm of breast; Z85.819 Personal history of malignant neoplasm of unspecified site of lip, oral cavity, and pharynx
CPT/HCPCS: 36415; 71045; 71275; 80048; 80053; 80061; 81001; 82550; 82553; 82805; 83605; 83735; 83880; 84100; 84484; 85025; 85610; 85730; 87040; 87070; 87205; 87804; 93005; 94640; 94660; 94760; 96365; 96368; 96375; 97163; 99291; 99292; J0456; J0696; J1650; J2930; J7030; J7512; J7605; Q9967

== ENCOUNTER 2019-04-05 01:25 | Emergency (ER) | payer OTHER ==
--- OUTSIDE RECORDS SUMMARY | 2019-04-05 01:31 | XMS REPORT | Clinical Summary ---
:1940 Author Organization [employer] Address [address] [place] [address] Care Team Providers Name Role Phone Yunior Montgomery MD Primary Care Provider Allergies Active Allergy Reactions Severity Noted Date Comments Perindopril Erbumine Anaphylaxis High 02/03/2019 Amoxicillin-Pot Clavulanate 01/19/2019 Codeine 01/10/2018 Other reaction(s): Unknown Perindopril Swelling High 01/25/2017 Throat swelled up. Medications Medication Sig Dispensed Refills Start End Date Status Date levothyroxine Take 100 mcg by 0 Active (SYNTHROID, mouth daily. 6 LEVOTHROID) 100 MCG tablet predniSONE Take 5 mg by 0 Active (DELTASONE) 10 MG mouth daily. 6 tablet traMADol (ULTRAM) Take 50 mg by 0 Active 50 mg tablet mouth every 8 6 (eight) hours as needed. rosuvastatin Take 10 mg by 0 Active (CRESTOR) 10 MG mouth daily. tablet roflumilast Take 500 mcg by 0 Active (DALIRESP) 500 mcg mouth daily. tablet zolpidem (AMBIEN) Take 5 mg by 0 Active 10 mg tablet mouth nightly as needed for sleep. arformoterol Take 15 mcg by 0 Active (BROVANA) 15 mcg/2 nebulization 2 mL solution for (two) times a nebulization day. hydrALAZINE Take 1 tablet (25 90 tablet 3 Active (APRESOLINE) 25 MG mg total) by 7 tablet mouth daily as needed (sytolic bp >160). LYRICA 75 mg Take 75 mg by 0 Active capsule mouth daily. 8 buPROPion SR Take 100 mg by 0 Active (WELLBUTRIN SR) 100 mouth 2 (two) 9 MG 12 hr tablet times a day. metoprolol tartrate Take 0.5 tablets 180 tablet 2 Active (LOPRESSOR) 25 mg (12.5 mg total) 9 tablet by mouth 2 (two) times a day. spironolactone Take 50 mg by 0 Active (ALDACTONE) 25 MG mouth 2 (two) 9 tablet times a day. losartan (COZAAR) Take 100 mg by 0 Active 100 MG tablet mouth daily. clopidogrel Take 75 mg by 0 Active (PLAVIX) 75 mg mouth daily. tablet tiotropium bromide Inhale 2 puffs 0 Active (SPIRIVA RESPIMAT daily. INHL) aspirin (ECOTRIN) Take 81 mg by 0 Active 81 MG enteric mouth daily. coated tablet albuterol (PROAIR Inhale 2 puffs 0 Active HFA,PROVENTIL every 4 (four) HFA,VENTOLIN HFA) hours as needed 90 mcg/actuation for wheezing. inhaler nicotine (NICODERM Place 1 patch on 0 Active CQ) 7 mg/24 hr the skin daily. pantoprazole TAKE ONE TABLET 90 tablet 2 Active (PROTONIX) 40 MG EC BY MOUTH DAILY 9 tabletIndications: Chest pain, unspecified type losartan (COZAAR) TAKE ONE TABLET 90 tablet 0 Active 100 MG tablet BY MOUTH DAILY 9 clopidogrel TAKE ONE TABLET 59 tablet 0 Active (PLAVIX) 75 mg BY MOUTH DAILY 9 tabletIndications: Coronary artery disease involving [place] heart with angina pectoris, unspecified vessel or lesion type (HCC) losartan (COZAAR) TAKE ONE TABLET 90 tablet 0 Active 100 MG tablet BY MOUTH DAILY 9 pantoprazole TAKE ONE TABLET 90 tablet 2 Active (PROTONIX) 40 MG EC BY MOUTH DAILY 9 tabletIndications: Chest pain, unspecified type clopidogrel TAKE ONE TABLET 79 tablet 0 Active (PLAVIX) 75 mg BY MOUTH DAILY 9 tabletIndications: Coronary artery disease involving [place] heart with angina pectoris, unspecified vessel or lesion type (HCC) PROAIR HFA 90 Inhale 2 puffs 0 01/20/20 Discontinued mcg/actuation every 4 (four) 6 19 inhaler hours as needed. alendronate Take 70 mg by 0 01/19/20 Discontinued (FOSAMAX) 70 MG mouth once a 6 19 tablet week. citalopram (CeleXA) Take 40 mg by 0 01/30/20 Discontinued 40 MG tablet mouth daily. 6 19 ASPIRIN (ASPIR-LOW Take 81 mg by 0 01/19/20 Discontinued ORAL) mouth daily. 19 cholecalciferol, Take 2,000 Units 0 01/19/20 Discontinued vitamin D3, by mouth daily. 19 (VITAMIN D3) 2,000 unit tablet TIOTROPIUM BROMIDE Inhale 5 mcg. 0 01/19/20 Discontinued (SPIRIVA RESPIMAT 19 INHL) potassium chloride Take 20 mEq by 0 01/30/20 Discontinued 20 mEq tablet mouth daily. 7 19 extended release albuterol 2.5 mg /3 Inhale. 0 01/20/20 Discontinued mL (0.083 %) 19 solution for nebulization 3 mL, albuterol 5 mg/mL solution for nebulization 0.5 mL metoprolol tartrate Take 1 tablet (25 180 tablet 3 05/15/20 Discontinued (LOPRESSOR) 25 mg mg total) by 7 18 tablet mouth 2 (two) times a day. furosemide (LASIX) TAKE ONE TABLET 90 tablet 2 01/19/20 Discontinued 20 mg tablet BY MOUTH DAILY 7 19 losartan (COZAAR) TAKE ONE TABLET 90 tablet 2 07/05/20 Discontinued 100 MG tablet BY MOUTH DAILY 7 18 clopidogrel TAKE ONE TABLET 90 tablet 2 08/12/20 Discontinued (PLAVIX) 75 mg BY MOUTH DAILY 8 18 tabletIndications: Coronary artery disease involving [place] heart with angina pectoris, unspecified vessel or lesion type (HCC) metoprolol tartrate TAKE ONE TABLET 180 tablet 2 11/23/19 Discontinued (LOPRESSOR) 25 mg BY MOUTH TWICE A 8 19 tablet DAY SPIRIVA RESPIMAT 0 01/19/20 Discontinued 2.5 mcg/actuation 8 19 mist VIT D3-FOLIC DAILY 0 01/19/20 Discontinued [id number] ORAL 7 19 pantoprazole Take 1 tablet (40 90 tablet 3 03/15/20 Discontinued (PROTONIX) 40 MG EC mg total) by 8 19 tabletIndications: mouth daily. Chest pain, unspecified type losartan (COZAAR) TAKE ONE TABLET 90 tablet 1 12/19/19 Discontinued 100 MG tablet BY MOUTH DAILY 8 19 clopidogrel TAKE ONE TABLET 90 tablet 0 09/06/20 Discontinued (PLAVIX) 75 mg BY MOUTH DAILY 8 18 tabletIndications: Coronary artery disease involving [place] heart with angina pectoris, unspecified vessel or lesion type (HCC) clopidogrel TAKE ONE TABLET 79 tablet 0 01/19/20 Discontinued (PLAVIX) 75 mg BY MOUTH DAILY 8 19 tabletIndications: Coronary artery disease involving [place] heart with angina pectoris, unspecified vessel or lesion type (HCC) clonIDINE Take 0.1 mg by 0 11/23/19 Discontinued (CATAPRES) 0.1 MG mouth. 19 tablet mupirocin 0 01/19/20 Discontinued (BACTROBAN) 2 % 9 ointment metoprolol tartrate TAKE ONE TABLET 180 tablet 1 01/05/20 Discontinued (LOPRESSOR) 25 mg BY MOUTH TWICE A 9 19 tablet DAY losartan (COZAAR) TAKE ONE TABLET 90 tablet 0 01/19/20 Discontinued 100 MG tablet BY MOUTH DAILY 9 clopidogrel TAKE ONE TABLET 59 tablet 1 01/05/20 Discontinued (PLAVIX) 75 mg BY MOUTH DAILY 9 19 tabletIndications: Coronary artery disease involving [place] heart with angina pectoris, unspecified vessel or lesion type (HCC) cephalexin (KEFLEX) Take 500 mg by 0 01/20/20 Discontinued 500 MG capsule mouth 3 (three) 9 19 times a day. clopidogrel TAKE ONE TABLET 59 tablet 0 01/19/20 Discontinued (PLAVIX) 75 mg BY MOUTH DAILY 9 19 tabletIndications: Coronary artery disease involving [place] heart with angina pectoris, unspecified vessel or lesion type (HCC) ipratropium-albuter Take 3 mL by 0 01/30/20 Discontinued ol (DUO-NEB) nebulization 4 19 0.5-2.5 mg/3 mL (four) times a nebulizer day. primidone Take 25 mg by 0 01/20/20 Discontinued (MYSOLINE) 50 MG mouth 2 (two) 19 tablet times a day. polyethylene glycol Take 17 g by 30 packet 0 03/09/20 (MIRALAX) 17 gram mouth daily for 9 19 packet 30 days. levoFLOXacin Take 1 tablet 5 tablet 0 02/12/20 (LEVAQUIN) 500 MG (500 mg total) by 9 19 tablet mouth daily for 5 days. Active Problems Problem Noted Date Chest pain 05/25/2018 Essential hypertension 08/19/2016 PAD (peripheral artery disease) 08/19/2016 CAD in [place] artery 08/19/2016 Bilateral carotid artery disease 08/19/2016 Encounters Date Type Specialty Care Team Description 03/18/2019 Refill Cardiology Mary Gomez Med Refill 03/15/2019 Refill Cardiology Mary Gomez Med Refill 03/09/2019 Office Visit Cardiovascular [place], PAD (peripheral artery disease) ([facility]) (Primary Dx); [place] Bilateral carotid artery stenosis MD Ty 02/07/2019 Orders Only Cardiovascular [place], PAD (peripheral Maria Teresa, RN artery disease) ([facility]) (Primary Dx) 02/03/2019 Anesthesia Event Cardiothoracic Reese Rose, Surgery Jessica, [employer] 02/03/2019 Surgery Cardiothoracic [facility], [facility] Surgery [place] ENDARTERECTOMY, MD Ty BILATERAL 02/03/2019 - [facility], PAD (peripheral 02/06/2019 Encounter Medicine [place] artery disease) MD Ty ([facility]) 02/01/2019 Telephone Cardiovascular Maria Teresa Cabrera RN 01/27/2019 Telephone Cardiovascular Maria Teresa Cabrera RN 01/27/2019 Prep for Surgery Cardiovascular [place], PAD (peripheral Maria Teresa, RN artery disease) ([facility]) (Primary Dx) 01/27/2019 Telephone Cardiovascular Maria Teresa Cabrera RN 01/26/2019 Orders Only Cardiovascular [place], PAD (peripheral Maria Teresa, RN artery disease) ([facility]) (Primary Dx) 01/26/2019 Telephone Cardiovascular Maria Teresa Cabrera RN 01/24/2019 Telephone Cardiovascular Maria Teresa Cabrera RN 01/24/2019 Orders Only Cardiology Alfreda Gibbs, Coronary artery disease involving [place] heart with angina pectoris, unspecified vessel or lesion type ([facility]) (Primary Dx); [place] PAD (peripheral artery disease) ([facility]) 01/19/2019 Surgery Procedural Cardiology Mary Gomez, Cv aortogram abdominal aorta [30995 (CPT)] 01/19/2019 Hospital Procedural Cardiology Mary Gomez, PAD (peripheral Encounter MD artery disease) ([facility]) 2019 Refill Cardiology Mary Gomez, Med Refill 01/12/2019 Orders Only Cardiology Mary Gomez MD 01/05/2019 Orders Only Cardiology Alfreda Gibbs, PAD (peripheral [place] artery disease) ([facility]) (Primary Dx) 01/04/2019 Office Visit Cardiology Mary Gomez, PAD (peripheral artery disease) ([facility]) (Primary Dx); Bilateral carotid artery stenosis 12/20/2018 Telephone Cardiology Alfreda Gibbs, Results [place] 12/18/2018 Refill Cardiology Mary Gomez, Med Refill 12/10/2018 Telephone Cardiology Sam Washburn MA Result - Cardiac Imaging/Diagnostic Testing (CTA abdomen w/ contrast) 12/07/2018 Orders Only Cardiology Alfreda Gibbs, PAD (peripheral [place] artery disease) ([facility]) (Primary Dx) 12/07/2018 Telephone Cardiology Alfreda Gibbs, Results [place] 12/07/2018 Orders Only Cardiology Alfreda Gibbs, PAD (peripheral [place] artery disease) ([facility]) (Primary Dx) 11/23/2018 Office Visit Cardiology Mary Gomez, PAD (peripheral artery disease) ([facility]) (Primary Dx); Bilateral carotid artery disease, unspecified type ([facility]) 09/06/2018 Refill Cardiology Mary Gomez, Med Refill 08/12/2018 Refill Cardiology Mary Gomez, Med Refill 07/05/2018 Refill Cardiology Mary Gomez, Med Refill 06/08/2018 Telephone Cardiology Alfreda Gibbs, Results [place] 05/25/2018 Office Visit Cardiology Mary Gomez, Chest pain, unspecified type (Primary Dx); PAD (peripheral artery disease); Bilateral carotid artery disease 05/15/2018 Refill Cardiology Mary Gomez, Med Refill after 04/04/2018 Family History Medical History Relation Name Comments Heart disease Brother Heart disease Father Cancer Mother Heart disease Paternal Grandfather Cancer Sister Cancer Sister Relation Name Status Comments Brother Alive Father Mother Paternal Grandfather Sister Sister Social History Tobacco Use Types Packs/Day Years Used Date Former Smoker Cigarettes 1 50 Quit: 01/10/2019 Smokeless Tobacco: Never Used Alcohol Use Drinks/Week oz/Week Comments Yes ocasionally Sex Assigned at Date Recorded Not on file Job Start Date Occupation Industry Not on file Not on file Not on file Travel History Travel Start Travel End No recent travel history available. Last Filed Vital Signs Vital Sign Reading Time Taken Blood Pressure 132/76 03/09/2019 8:45 AM CDT Pulse 71 03/09/2019 8:45 AM CDT Temperature 36.7 C (98 F) 03/09/2019 8:45 AM CDT Respiratory Rate 21 02/06/2019 8:12 AM CDT Oxygen Saturation 99% 02/06/2019 8:12 AM CDT Inhaled Oxygen Concentration - - Weight 61.7 kg (136 lb) 03/09/2019 8:45 AM CDT Height 172.7 cm (5' 8") 03/09/2019 8:45 AM CDT Body Mass Index 20.68 03/09/2019 8:45 AM CDT Plan of Treatment Date Type Specialty Care Team Description 05/24/2019 Office Visit Cardiology Mary Gomez MD [address] [place] [address] [address] [place] [address] [phone] 06/01/2019 Appointment Procedural Cardiology Jacqueline Guthrie MD [address] [place] [address] [place] [address] [phone] 06/01/2019 Appointment Procedural Cardiology Jacqueline Guthrie MD [address] [facility] [address] [place] [address] [phone] 06/01/2019 Office Visit Cardiovascular Jacqueline Guthrie MD [address] [facility] [address] [place] [address] [phone] Health Maintenance Due Date Last Done Comments SHINGLES VACCINES (#1) 1991 65+ PNEUMOCOCCAL VACCINE (1 of 2 - PCV13) 2006 INFLUENZA VACCINE 05/12/2019 Implants Implanted Type Area Drum Drier Device Shelf Model / Identifier Expiration Serial / Date Lot Graft Vasclr Propaten Thn-Wl Strtch 40cm 8mm - [id number] - [id number] Vascular Right: W L GORE 07/25/2022 [id number] / Implanted: Qty: 1 on 02/03/2019 by Jacqueline Guthrie MD Graft N/A [id number] / [id number] Patch Vasclr Perph 2x9cm Vascu-Guard - [id number] Vascular N/A: N/A CASTAÑEDA 03/02/2023 [id number] / Implanted: 02/03/2019 (Quantity not on file) Graft BIOSCIENCE / [id number] Procedures Procedure Name Priority Date/Time Associated Comments Diagnosis US ANKLE BRACHIAL INDEX Routine 03/02/2019 2:01 PAD (peripheral Results for this PM CDT artery disease) procedure are in (HCC) the results section. US DUPLEX ARTERIAL Routine 03/02/2019 2:01 PAD (peripheral Results for this LOWER EXTREMITY PM CDT artery disease) procedure are in BILATERAL (HCC) the results section. POC GLUCOSE Routine 02/06/2019 7:53 Results for this AM CDT procedure are in the results section. POC GLUCOSE Routine 02/06/2019 5:19 Results for this AM CDT procedure are in the results section. POC GLUCOSE Routine 02/06/2019 12:28 Results for this AM CDT procedure are in the results section. POC GLUCOSE Routine 02/05/2019 8:27 Results for this PM CDT procedure are in the results section. POC GLUCOSE Routine 02/05/2019 4:09 Results for this PM CDT procedure are in the results section. POC GLUCOSE Routine 02/05/2019 11:10 Results for this AM CDT procedure are in the results section. POC GLUCOSE Routine 02/05/2019 7:32 Results for this AM CDT procedure are in the results section. POC GLUCOSE Routine 02/05/2019 5:05 Results for this AM CDT procedure are in the results section. CBC HEMOGRAM Routine 02/05/2019 4:35 Results for this AM CDT procedure are in the results section. ESTIMATED GFR Routine 02/05/2019 12:00 Results for this AM CDT procedure are in the results section. PHOSPHORUS LEVEL Routine 02/05/2019 12:00 Results for this AM CDT procedure are in the results section. IONIZED CALCIUM Routine 02/05/2019 12:00 Results for this AM CDT procedure are in the results section. MAGNESIUM LEVEL Routine 02/05/2019 12:00 Results for this AM CDT procedure are in the results section. BASIC METABOLIC PANEL Routine 02/05/2019 12:00 Results for this AM CDT procedure are in the results section. POC GLUCOSE Routine 02/04/2019 8:36 Results for this PM CDT procedure are in the results section. POC GLUCOSE Routine 02/04/2019 5:45 Results for this PM CDT procedure are in the results section. ECG 12-LEAD Routine 02/04/2019 3:31 Results for this PM CDT procedure are in the results section. HC COMPLETE BLD COUNT Routine 02/04/2019 8:23 Results for this W/AUTO DIFF AM CDT procedure are in the results section. POC GLUCOSE Routine 02/04/2019 7:42 Results for this AM CDT procedure are in the results section. XR CHEST 1 VW PORTABLE Routine 02/04/2019 6:10 Results for this AM CDT procedure are in the results section. POC GLUCOSE Routine 02/04/2019 3:43 Results for this AM CDT procedure are in the results section. SMEAR REVIEW Timed 02/04/2019 2:15 Results for this AM CDT procedure are in the results section. IONIZED CALCIUM, Timed 02/04/2019 2:15 Results for this ARTERIAL AM CDT procedure are in the results section. PROTHROMBIN TIME WITH Timed 02/04/2019 2:15 Results for this INR AM CDT procedure are in the results section. PARTIAL THROMBOPLASTIN Timed 02/04/2019 2:15 Results for this TIME (PTT) AM CDT procedure are in the results section. HC COMPLETE BLD COUNT Timed 02/04/2019 2:15 Results for this W/AUTO DIFF AM CDT procedure are in the results section. ARTERIAL BLOOD GAS Timed 02/04/2019 2:15 Results for this AM CDT procedure are in the results section. ESTIMATED GFR Timed 02/04/2019 2:00 Results for this AM CDT procedure are in the results section. PHOSPHORUS LEVEL Timed 02/04/2019 2:00 Results for this AM CDT procedure are in the results section. MAGNESIUM LEVEL Timed 02/04/2019 2:00 Results for this AM CDT procedure are in the results section. BASIC METABOLIC PANEL Timed 02/04/2019 2:00 Results for this AM CDT procedure are in the results section. POC GLUCOSE Routine 02/03/2019 11:48 Results for this PM CDT procedure are in the results section. POC GLUCOSE Routine 02/03/2019 10:56 Results for this PM CDT procedure are in the results section. POC GLUCOSE Routine 02/03/2019 9:58 Results for this PM CDT procedure are in the results section. POC GLUCOSE Routine 02/03/2019 8:54 Results for this PM CDT procedure are in the results section. XR CHEST 1 VW PORTABLE Routine 02/03/2019 8:10 Results for this PM CDT procedure are in the results section. POC GLUCOSE Routine 02/03/2019 8:02 Results for this PM CDT procedure are in the results section. ARTERIAL BLOOD GAS Routine 02/03/2019 7:26 Results for this PM CDT procedure are in the results section. ECG PRE/POST OP STAT 02/03/2019 7:23 Results for this PM CDT procedure are in the results section. MAGNESIUM LEVEL STAT 02/03/2019 7:09 Results for this PM CDT procedure are in the results section. PHOSPHORUS LEVEL STAT 02/03/2019 7:09 Results for this PM CDT procedure are in the results section. PROTHROMBIN TIME WITH Routine 02/03/2019 7:09 Results for this INR PM CDT procedure are in the results section. ESTIMATED GFR STAT 02/03/2019 7:09 Results for this PM CDT procedure are in the results section. BASIC METABOLIC PANEL STAT 02/03/2019 7:09 Results for this PM CDT procedure are in the results section. PARTIAL THROMBOPLASTIN Routine 02/03/2019 7:09 Results for this TIME (PTT) PM CDT procedure are in the results section. IONIZED CALCIUM STAT 02/03/2019 7:09 Results for this PM CDT procedure are in the results section. HC COMPLETE BLD COUNT STAT 02/03/2019 7:09 Results for this W/AUTO DIFF PM CDT procedure are in the results section. POC GLUCOSE Routine 02/03/2019 6:59 Results for this PM CDT procedure are in the results section. GLUCOSE LEVEL, SYRINGE STAT 02/03/2019 6:00 Results for this PM CDT procedure are in the results section. IONIZED CALCIUM, STAT 02/03/2019 6:00 Results for this ARTERIAL PM CDT procedure are in the results section. HEMOGLOBIN, SYRINGE STAT 02/03/2019 6:00 Results for this PM CDT procedure are in the results section. POTASSIUM, SYRINGE STAT 02/03/2019 6:00 Results for this PM CDT procedure are in the results section. ARTERIAL BLOOD GAS, STAT 02/03/2019 6:00 Results for this CORRECTED PM CDT procedure are in the results section. SODIUM LEVEL, SYRINGE STAT 02/03/2019 6:00 Results for this PM CDT procedure are in the results section. HEMOGLOBIN, SYRINGE STAT 02/03/2019 4:55 Results for this PM CDT procedure are in the results section. GLUCOSE LEVEL, SYRINGE STAT 02/03/2019 4:55 Results for this PM CDT procedure are in the results section. IONIZED CALCIUM, STAT 02/03/2019 4:55 Results for this ARTERIAL PM CDT procedure are in the results section. SODIUM LEVEL, SYRINGE STAT 02/03/2019 4:55 Results for this PM CDT procedure are in the results section. POTASSIUM, SYRINGE STAT 02/03/2019 4:55 Results for this PM CDT procedure are in the results section. ARTERIAL BLOOD GAS, STAT 02/03/2019 4:55 Results for this CORRECTED PM CDT procedure are in the results section. ACTIVATED CLOTTING TIME Routine 02/03/2019 4:50 Results for this PM CDT procedure are in the results section. ACTIVATED CLOTTING TIME Routine 02/03/2019 4:20 Results for this PM CDT procedure are in the results section. ACTIVATED CLOTTING TIME Routine 02/03/2019 4:11 Results for this PM CDT procedure are in the results section. IONIZED CALCIUM, STAT 02/03/2019 3:45 Results for this ARTERIAL PM CDT procedure are in the results section. GLUCOSE LEVEL, SYRINGE STAT 02/03/2019 3:45 Results for this PM CDT procedure are in the results section. POTASSIUM, SYRINGE STAT 02/03/2019 3:45 Results for this PM CDT procedure are in the results section. HEMOGLOBIN, SYRINGE STAT 02/03/2019 3:45 Results for this PM CDT procedure are in the results section. ARTERIAL BLOOD GAS, STAT 02/03/2019 3:45 Results for this CORRECTED PM CDT procedure are in the results section. SODIUM LEVEL, SYRINGE STAT 02/03/2019 3:45 Results for this PM CDT procedure are in the results section. MAGNESIUM LEVEL STAT 02/03/2019 2:42 Results for this PM CDT procedure are in the results section. GLUCOSE LEVEL, SYRINGE STAT 02/03/2019 2:42 Results for this PM CDT procedure are in the results section. HEMOGLOBIN, SYRINGE STAT 02/03/2019 2:42 Results for this PM CDT procedure are in the results section. IONIZED CALCIUM, STAT 02/03/2019 2:42 Results for this ARTERIAL PM CDT procedure are in the results section. POTASSIUM, SYRINGE STAT 02/03/2019 2:42 Results for this PM CDT procedure are in the results section. SODIUM LEVEL, SYRINGE STAT 02/03/2019 2:42 Results for this PM CDT procedure are in the results section. ARTERIAL BLOOD GAS, STAT 02/03/2019 2:42 Results for this CORRECTED PM CDT procedure are in the results section. ARTERIAL LINE Routine 02/03/2019 1:29 PM CDT Procedure Note - Randell Recio MD - 02/03/2019 1:29 PM CDT Arterial line Performed by: Raffi Ragsdale MD Authorized by: Raffi Ragsdale MD Patient Location: Pre-op Start Time: 02/03/2019 12:05 PM End Time: 02/03/2019 12:11 PM Staff: Anesthesiologist: Raffi Ragsdale MD Performed by: Anesthesiologist Pre-procedure: patient identified, IV checked, site and side verified, risks and benefits discussed, procedure verified, surgical consent complete, patient position confirmed, monitors and equipment checked and pre-op evaluation complete MSBT: antiseptic used, all elements of maximal sterile barrier technique followed, hand hygiene performed, cap/gown used by other personnel and solutions labeled TIme Out Performed: 02/03/2019 12:00 PM Indications: Indications: hemodynamic monitoring Anesthesia: Anesthesia: Local infiltration Procedure Details: Arterial Line placement: Placed pre-induction Line placement site: Radial Line placement side: Right Arterial line gauge: 20 G Number of attempts: 2 Ultrasound guidance used: Yes Post-procedure: Post-procedure: Sterile dressing applied Post procedure circulation, sensation, movement: Normal Patient tolerance: Patient tolerated the procedure well with no immediate complications Notes: 1st attempt calcifications noted and resistance with wire. 2nd attempt more proximal insertion and ultrasound guidance utilized. No issues. GLUCOSE LEVEL, SYRINGE STAT 02/03/2019 12:35 PM CDT IONIZED CALCIUM, ARTERIAL STAT 02/03/2019 12:35 PM CDT HEMOGLOBIN, SYRINGE STAT 02/03/2019 12:35 PM CDT SODIUM LEVEL, SYRINGE STAT 02/03/2019 12:35 PM CDT POTASSIUM, SYRINGE STAT 02/03/2019 12:35 PM CDT ARTERIAL BLOOD GAS, STAT 02/03/2019 12:35 PM CDT Results for this CORRECTED procedure are in the results section. CENTRAL LINE Routine 02/03/2019 12:20 PM CDT Procedure Note - Randell Recio MD - 02/03/2019 12:20 PM CDT Central line Performed by: Lizeth Patterson Authorized by: Raffi Ragsdale MD Patient Location: OR Start Time: 02/03/2019 12:20 PM End Time: 02/03/2019 12:36 PM Staff: Anesthesiologist: Raffi Ragsdale MD Other Staff: Lizeth Patterson Performed by: Other staff Preprocedure:patient identified, IV checked, site and side verified, risks and benefits discussed, procedure verified, surgical consent complete, patient position confirmed, monitors and equipment checked and pre-op evaluation complete MSBT: antiseptic used during central venous catheter insertion, all elements of maximal sterile barrier technique followed, hand hygiene performed prior to central venous catheter insertion, cap/gown used by other personnel during central venous catheter insertion, solutions labeled and all ports not used during insertion clamped TIme Out Performed: 02/03/2019 12:20 PM Indications: Indications: Vascular access and central pressure monitoring Anesthesia: Anesthesia: General Procedure details: Patient position: Reverse Trendelenburg Catheter Type: Double lumen Catheter Size: 8 Fr Catheter Site: internal jugular vein Catheter site laterality: Right Ultrasound guidance used: Yes Ultrasound image saved: No Number of attempts: 1 Successful placement: Yes Guidewire removal: Guidewire removal is confirmed Guidewire removal witnessed by: Raffi Ragsdale MD Post-procedure: Post-procedure: sterile dressing applied per protocol Post-procedure: Blood cleaned with CHG and sterile caps on all hubs Assessment: Blood return through all ports and free fluid flow Patient tolerance: Patient tolerated the procedure well with no immediate complications Notes: No complications NM AN ELECTIVE ENDOTRACHEAL AIRWAY Routine 02/03/2019 12:19 PM CDT Procedure Note - Lizeth Patterson - 02/03/2019 12:19 PM CDT Airway Date/Time: 02/03/2019 12:14 PM Performed by: Lizeth Patterson Authorized by: Raffi Ragsdale MD Location: OR Urgency: Elective Difficult Airway: Yes Anesthesiologist: Raffi Ragsdale MD Other Anesthesia Staff: Lizeth Patterson Preoxygenated with 100% O2: Yes C-spine Precautions Maintained Throughout: Yes Mask Ventilation: Assisted mask Final Airway Type: Endotracheal airway Final Endotracheal Airway: ETT Cuffed: Yes Technique Used: Video laryngoscopy Devices/Methods Used in Placement: Intubating stylet Insertion Site: Oral Blade Type: Vannesa Laryngoscope Blade/Videolaryngoscope Blade Size: 3 ETT Size (mm): 7.0 Cuff at minimum occlusion pressure: Yes Measured from: Gums ETT to Gums (cm): 21 Placement Verified by: CO2 detection, direct visualization, equal breath sounds and fiber optic visualization Laryngoscopic view: Grade I - full view of glottis Rapid Sequence Induction (RSI): No Modified RSI: No Number of Attempts at Approach: 1 Preoxygenated with FiO2 of 1.0. Standard induction. Eyes taped after loss of lash reflex. Easy mask ventilation with oral airway. DL x 1 with glidescope size 3 grade 1 view. ETT passed without complications. Atraumatic. No injury to lips, teeth, eyes, cords. All intact as preoperatively. Temp probe placed. Central line insertion to follow GLUCOSE LEVEL, SYRINGE STAT 02/03/2019 10:20 Results for this AM CDT procedure are in the results section. SODIUM LEVEL, SYRINGE STAT 02/03/2019 10:20 Results for this AM CDT procedure are in the results section. HEMOGLOBIN, SYRINGE STAT 02/03/2019 10:20 Results for this AM CDT procedure are in the results section. POTASSIUM, SYRINGE STAT 02/03/2019 10:20 Results for this AM CDT procedure are in the results section. PREPARE RBC STAT 02/03/2019 9:27 Results for this AM CDT procedure are in the results section. PREPARE RBC STAT 02/03/2019 9:27 Results for this AM CDT procedure are in the results section. TYPE AND SCREEN STAT 02/03/2019 9:27 Results for this AM CDT procedure are in the results section. ECHOCARDIOGRAM 2D Routine 01/26/2019 5:28 Coronary artery Results for this COMPLETE W MMODE PM CDT disease involving procedure are in SPECTRAL COLOR D[place]PLER [place] [facility] with the results ([id number]) angina pectoris, section. unspecified vessel or lesion type (HCC) PAD (peripheral artery disease) (HCC) NM MYOCARDIAL PERFUSION Routine 01/26/2019 3:31 Coronary artery Results for this REST STRESS 1 DAY PM CDT disease involving procedure are in [place] [facility] with the results angina pectoris, section. unspecified vessel or lesion type (HCC) PAD (peripheral artery disease) ([facility]) CV STRESS TEST NUCLEAR Routine 01/26/2019 3:31 Coronary artery Results for this CARDIO PM CDT disease involving procedure are in [place] [facility] with the results angina pectoris, section. unspecified vessel or lesion type (HCC) PAD (peripheral artery disease) ([facility]) CV AORTOGRAM ABDOMINAL Routine 01/19/2019 1:54 PAD (peripheral Results for this AORTA PM CDT artery disease) procedure are in (HCC) the results section. ECG 12-LEAD STAT 01/19/2019 11:26 Results for this AM CDT procedure are in the results section. COPY RECEIVED FROM: Routine 01/12/2019 9:25 Results for this AM CDT procedure are in the results section. CBC WITH PLATELET AND Routine 01/12/2019 9:25 Results for this DIFFERENTIAL AM CDT procedure are in the results section. PROTHROMBIN TIME WITH Routine 01/12/2019 9:25 Results for this INR AM CDT procedure are in the results section. PARTIAL THROMBOPLASTIN Routine 01/12/2019 9:25 Results for this TIME (PTT) AM CDT procedure are in the results section. COMPREHENSIVE METABOLIC Routine 01/12/2019 9:25 Results for this PANEL AM CDT procedure are in the results section. COPY(IES) SENT TO: Routine 01/12/2019 9:25 Results for this AM CDT procedure are in the results section. CT ANGIOGRAM ABDOMINAL Routine 12/10/2018 2:25 PAD (peripheral Results for this AORTA AND BILATERAL PM [place] artery disease) procedure are in ILIOFEMORAL RUNOFF W WO (HCC) the results CONTRAST section. ESTIMATED GFR Routine 12/10/2018 9:41 Results for this AM [place] procedure are in the results section. POC CREATININE Routine 12/10/2018 9:41 Results for this AM [place] procedure are in the results section. US DUPLEX ARTERIAL Routine 11/23/2018 3:20 PAD (peripheral Results for this LOWER EXTREMITY PM [place] artery disease) procedure are in BILATERAL (HCC) the results section. ECG 12-LEAD Routine 11/23/2018 1:16 Bilateral carotid Results for this PM [place] artery disease, procedure are in unspecified type the results (HCC) section. US CAROTID DUPLEX Routine 05/27/2018 2:18 Chest pain, Results for this BILATERAL PM CDT unspecified type procedure are in the results section. ECG 12-LEAD Routine 05/25/2018 9:14 Chest pain, Results for this AM CDT unspecified type procedure are in the results section. 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 2.Toe brachial index suggests mild disease on the right and severe disease on the left. 3. See the same day lower extremity arterial Duplex exam. MEASUREMENTS: PRESSURES Right Brachial Brach P145 mmHg Right Ankle PT AnklePT P >255 mmHg Left Ankle PT AnklePT P140 mmHg Right Ankle DP AnkleDP P >255 mmHg Left Ankle DP AnkleDP P140 mmHg Right Great Toe GreatToe P63 mmHg Left Great Toe GreatToe P28 mmHg Right RENU PT RENU PT N/C Left RENU PT RENU PT 0.966 Right RENU DP RENU DP N/C Left RENU DP RENU DP 0.966 Right TBI TBI0.434 Left TBI TBI0.193 Signed 03/14/2019 02:46 PM Zulay Oneil MD, RPVI Procedure Note Interface, Radiology Results In - 03/14/2019 2:47 PM CDT [facility] Lower Extremity Arterial Physiologic Report [address] [place] [address] Pat.Name: JAE BENSON Pat.ID: [id number] .Date: 03/02/2019 Refer.MD: JACQUELINE GUTHRIE MD Exam Time: 12:37:00 PM Study Type:Physiologic Leg Age: 5 1940,79Y Sex: FEMALE Sonogrphr: Benjie Belcher RVT CPT - 4: 14904 Echo Event ID:[id number] Order ID: [id number] 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 Resting ankle brachial indices unable to obtain due to non compressible blood vessels on the right , suggest mild left lower extremity arterial occlusive disease. 2. Toe brachial index suggests mild disease on the right and severe disease on the left. 3. See the same day lower extremity arterial Duplex exam. MEASUREMENTS: PRESSURES Right Brachial Brach P 145 mmHg Right Ankle PT AnklePT P >255 mmHg Left Ankle PT AnklePT P 140 mmHg Right Ankle DP AnkleDP P >255 mmHg Left Ankle DP AnkleDP P 140 mmHg Right Great Toe GreatToe P 63 mmHg Left Great Toe GreatToe P 28 mmHg Right RENU PT RENU PT N/C Left RENU PT RENU PT 0.966 Right RENU DP RENU DP N/C Left RENU DP RENU DP 0.966 Right TBI TBI 0.434 Left TBI TBI 0.193 Signed 03/14/2019 02:46 PM Zulay Oneil MD, RPVI Performing Organization Address City/State/Zipcode Phone Number [facility] [address] [place] [address] Us duplex arterial lower extremity (03/02/2019 2:01 PM CDT)Only the most recent of2 resultswithin the time period is included. 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 There is left to right fem/fem bypass graft with colorflow and Doppler signal present. There is colorflow disturbance with elevated velocity in the proximal deep femoral artery. There is colorflow and Doppler signal present in all the arteries to the foot. LEFT:Satisfactory appearance at the common femoral artery endarterectomy site. There is left to right fem/fem bypass graft with colorflow and Doppler signal present.There is colorflow and Doppler signal present in all the arteries to the foot. PHYSICIAN INTERPRETATION: 1. Patent left to right fem/fem bypass graft. 2. Satisfactory appearance at the common femoral artery endarterectomy site, bilaterally. 3. <50% stenosis right proximal deep femoral artery (ratio 1.9). 4. See the same day RENU MEASUREMENTS: DOPPLER Left CARE PARTNER Prox CARE PARTNER Prox PSV40 cm/s Right CARE PARTNER Prox CARE PARTNER Prox PSV42 cm/s Left CARE PARTNER Distal CARE PARTNER Distal PSV55 cm/s Right CARE PARTNER Distal CARE PARTNER Distal PSV33 cm/s Left CARE PARTNER Mid CARE PARTNER Mid PSV 55 cm/s Right CARE PARTNER Mid CARE PARTNER Mid PSV 46 cm/s Left Peroneal Dist Peroneal Dist P21 cm/s Right Peroneal Dist Peroneal Dist P19 cm/s Left SFA Mid SFA Mid PSV 66 cm/s Right SFA Mid SFA Mid PSV 94 cm/s Left ED Prox ED Prox PSV63 cm/s Right ED Prox ED Prox PSV44 cm/s Left ED Mid ED Mid PSV 58 cm/s Right ED Mid ED Mid PSV 47 cm/s Left ED Distal ED Distal PSV52 cm/s Right ED Distal ED Distal PSV47 cm/s Left Pop Prox Pop Prox PSV36 cm/s Right Pop Prox Pop Prox PSV52 cm/s Left TASSEL MAKING MACHINE OPERATOR Dist TASSEL MAKING MACHINE OPERATOR Dist PSV85 cm/s Right TASSEL MAKING MACHINE OPERATOR Dist TASSEL MAKING MACHINE OPERATOR Dist PSV68 cm/s Left Peroneal Mid Peroneal Mid PS35 cm/s Right Peroneal Mid Peroneal Mid PS37 cm/s Left Peroneal Prox Peroneal Prox P39 cm/s Right Peroneal Prox Peroneal Prox P27 cm/s Left TP Trunk Dist TP Trunk Dist P74 cm/s Right TP Trunk Dist TP Trunk Dist P51 cm/s Left SFA Prox SFA Prox PSV88 cm/s Right SFA Prox SFA Prox PSV 110 cm/s Left SFA Dist SFA Dist PSV52 cm/s Right SFA Dist SFA Dist PSV75 cm/s Left Pop Dist Pop Dist PSV72 cm/s Right Pop Dist Pop Dist PSV52 cm/s Left Profunda Profunda PSV 120 cm/s Right Profunda Profunda PSV 132 cm/s Signed 03/14/2019 02:53 PM Zulay Oneil MD, RPVI Procedure Note Interface, Radiology Results In - 03/14/2019 2:53 PM CDT [facility] Lower Extremity Arterial Duplex Report [id number] [facility] [address], [place] [address] Pat.Name: JAE BENSON Pat.ID: [id number] .Date: 03/02/2019 Refer.MD: JACQUELINE GUTHRIE MD Exam Time: 12:38:00 PM Study Type:LE Arterial Age: 5 1940,79Y Sex: FEMALE Sonogrphr: Benjie Belcher RVT CPT - 4: 09807 Echo Event ID:[id number] Order ID: [id number] 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 There is left to right fem/fem bypass graft with colorflow and Doppler signal present. There is colorflow disturbance with elevated velocity in the proximal deep femoral artery. There is colorflow and Doppler signal present in all the arteries to the foot. LEFT:Satisfactory appearance at the common femoral artery endarterectomy site. There is left to right fem/fem bypass graft with colorflow and Doppler signal present. There is colorflow and Doppler signal present in all the arteries to the foot. PHYSICIAN INTERPRETATION: 1. Patent left to right fem/fem bypass graft. 2. Satisfactory appearance at the common femoral artery endarterectomy site, bilaterally. 3. <50% stenosis right proximal deep femoral artery (ratio 1.9). 4. See the same day RENU MEASUREMENTS: DOPPLER Left CARE PARTNER Prox CARE PARTNER Prox PSV 40 cm/s Right CARE PARTNER Prox CARE PARTNER Prox PSV 42 cm/s Left CARE PARTNER Distal CARE PARTNER Distal PSV 55 cm/s Right CARE PARTNER Distal CARE PARTNER Distal PSV 33 cm/s Left CARE PARTNER Mid CARE PARTNER Mid PSV 55 cm/s Right CARE PARTNER Mid CARE PARTNER Mid PSV 46 cm/s Left Peroneal Dist Peroneal Dist P 21 cm/s Right Peroneal Dist Peroneal Dist P 19 cm/s Left SFA Mid SFA Mid PSV 66 cm/s Right SFA Mid SFA Mid PSV 94 cm/s Left ED Prox ED Prox PSV 63 cm/s Right ED Prox ED Prox PSV 44 cm/s Left ED Mid ED Mid PSV 58 cm/s Right ED Mid ED Mid PSV 47 cm/s Left ED Distal ED Distal PSV 52 cm/s Right ED Distal ED Distal PSV 47 cm/s Left Pop Prox Pop Prox PSV 36 cm/s Right Pop Prox Pop Prox PSV 52 cm/s Left TASSEL MAKING MACHINE OPERATOR Dist TASSEL MAKING MACHINE OPERATOR Dist PSV 85 cm/s Right TASSEL MAKING MACHINE OPERATOR Dist TASSEL MAKING MACHINE OPERATOR Dist PSV 68 cm/s Left Peroneal Mid Peroneal Mid PS 35 cm/s Right Peroneal Mid Peroneal Mid PS 37 cm/s Left Peroneal Prox Peroneal Prox P 39 cm/s Right Peroneal Prox Peroneal Prox P 27 cm/s Left TP Trunk Dist TP Trunk Dist P 74 cm/s Right TP Trunk Dist TP Trunk Dist P 51 cm/s Left SFA Prox SFA Prox PSV 88 cm/s Right SFA Prox SFA Prox PSV 110 cm/s Left SFA Dist SFA Dist PSV 52 cm/s Right SFA Dist SFA Dist PSV 75 cm/s Left Pop Dist Pop Dist PSV 72 cm/s Right Pop Dist Pop Dist PSV 52 cm/s Left Profunda Profunda PSV 120 cm/s Right Profunda Profunda PSV 132 cm/s Signed 03/14/2019 02:53 PM Zulay Oneil MD, RPVI Performing Organization Address [facility] Phone Number [facility] [address] [place] [address] POC glucose (02/06/2019 7:53 AM CDT)Only the most recent of18 resultswithin the time period is included. [facility] POC glucose 100 (H) 65 - 99 mg/dL [facility] Comment: [facility] Notified RN No Action Needed Meter ID: [id number] Computer Aided Design Technician: Hugo Truong Specimen Performing Organization Address [facility]/Zipcode Phone Number [facility] DEPARTMENT OF PATHOLOGY AND [address] [place] [address] GENOMIC MEDICINE [address] [address] CBC hemogram (02/05/2019 4:35 AM CDT) [facility] WBC 8.33 4.50 - 11.00 k/uL [facility] RBC 2.85 (L) 4.20 - 5.50 m/uL [facility] HGB 8.3 (L) 12.0 - 16.0 g/dL [facility] HCT 27.0 (L) 37.0 - 47.0 % [facility] MCV 94.7 82.0 - 100.0 fL [facility] MCH 29.1 27.0 - 34.0 pg [facility] MCHC 30.7 (L) 31.0 - 37.0 g/dL [facility] RDW - SD 55.9 (H) 37.0 - 55.0 fL [facility] MPV 11.0 8.8 - 13.2 fL [facility] Platelet count 127 (L) 150 - 400 k/uL [facility] Nucleated RBC 0.00 /100 WBC [facility] Specimen Blood Performing Organization Address City/[facility] Phone Number [facility] DEPARTMENT OF PATHOLOGY AND [address] [place] [address] Estimated GFR (02/05/2019 12:00 AM CDT)Only the most recent of4 resultswithin the time period is included. [facility] Estimated GFR 45 (A) mL/min/1.73 [facility] Comment: HOSPITAL CatergoryUnitsInterpretation G1 >=90 Normal or high G2 60-89Mildly decreased [id number] to moderately decreased [id number] to severely decreased G4 15-29Severely decreased G5 <15Kidney failure The eGFR was calculated using the Chronic Kidney Disease Epidemiology Collaboration (CKD-EPI) equation. Interpretation is based on recommendations of the National Kidney Foundation-Kidney Disease Outcomes Quality Initiative (NKF-KDOQI) published in 2014. Specimen Plasma specimen Performing Organization Address City/[facility]/Zipcode Phone Number [facility] DEPARTMENT OF PATHOLOGY AND [address] [place] [address] Phosphorus level (02/05/2019 12:00 AM CDT)Only the most recent of3 resultswithin the time period is included. [facility] Phosphorus 3.3 2.4 - 4.5 mg/dL [facility] Specimen Plasma specimen Performing Organization Address City/[facility] Phone Number [facility] DEPARTMENT OF PATHOLOGY AND [address] [place] [address] Magnesium level (02/05/2019 12:00 AM CDT)Only the most recent of4 resultswithin the time period is included. Magnesium 2.0 1.6 - 2.4 mg/dL [facility] Specimen Plasma specimen Performing Organization Address City/[facility] Phone Number [facility] DEPARTMENT OF PATHOLOGY AND [address] [place] [address] Ionized calcium (02/05/2019 12:00 AM CDT)Only the most recent of2 resultswithin the time period is included. pH 7.53 [facility] Ionized calcium 1.10 (L) 1.11 - 1.32 [facility] mmol/L [facility] Specimen Plasma specimen Performing Organization Address [facility] Phone Number [facility] DEPARTMENT OF PATHOLOGY AND [address] [place] [address] Basic metabolic panel (02/05/2019 12:00 AM CDT)Only the most recent of3 resultswithin the time period is included. Sodium 139 135 - 148 mEq/L [facility] Potassium 4.2 3.5 - 5.0 mEq/L [facility] Chloride 100 98 - 112 mEq/L [facility] CO2 26 24 - 31 mEq/L [facility] Anion gap 13@ANIO 7 - 15 mEq/L [facility] BUN 19 8 - 23 mg/dL [facility] Creatinine 1.17 (H) 0.50 - 0.90 mg/dL [facility] Glucose 99 65 - 99 mg/dL [facility] Calcium 8.6 (L) 8.8 - 10.2 mg/dL [facility] Specimen Plasma specimen Performing Organization Address City/[facility] Phone Number [facility] DEPARTMENT OF PATHOLOGY AND [address] [place], [place] [address] [place] [address] ECG 12 lead (02/04/2019 3:31 PM CDT)Only the most recent of4 resultswithin the time period is included. Ventricular rate 85 [facility] Atrial rate 85 [facility] NM interval 140 [facility] QRSD interval 88 [facility] QT interval 394 [facility] QTC interval 468 [facility] P axis 1 67 [facility] QRS axis 1 52 [facility] T wave axis 74 [facility] EKG impression Sinus rhythm with [facility] MUSE frequent premature ventricular complexes-Otherwise normal ECG-In automated comparison with ECG of 03-FEB-2019 19:23,-premature ventricular complexes are now present- Specimen Narrative Performed At Performing Organization Address City/State/Zipcode Phone Number [facility] [address] [place] [address] CBC with platelet and differential (02/04/2019 8:23 AM CDT)Only the most recent of4 resultswithin the time period is included. [facility] WBC 9.17 4.50 - 11.00 [facility] k/uL [facility] RBC 2.94 (L) 4.20 - 5.50 [facility] m/uL [facility] HGB 8.5 (L) 12.0 - 16.0 [facility]/dL [facility] HCT 27.3 (L) 37.0 - 47.0 % [facility] MCV 92.9 82.0 - 100.0 [facility] MCH 28.9 27.0 - 34.0 pg [facility] MCHC 31.1 31.0 - 37.0 [facility] RDW - SD 53.7 37.0 - 55.0 fL [facility] MPV 10.0 8.8 - 13.2 fL [facility] Platelet count 118 (L) 150 - 400 k/uL [facility] Nucleated RBC 0.00 /100 WBC [facility] Neutrophils 84.7 (H) 39.0 - 69.0 % [facility] Lymphocytes 5.6 (L) 25.0 - 45.0 % [facility] Monocytes 9.3 0.0 - 10.0 % [facility] Eosinophils 0.0 0.0 - 5.0 % [facility] Basophils 0.1 0.0 - 1.0 % [facility] Immature granulocytes 0.3Comment: 0.0 - 1.0 % [facility] "Immature HOSPITAL granulocytes" (promyelocytes , myelocytes, metamyelocytes ) Specimen Blood Performing Organization Address City/[facility]/Zipcode Phone Number [facility] DEPARTMENT OF PATHOLOGY AND [address] [place] [address] [address] XR Chest 1 Vw Portable (02/04/2019 6:10 AM CDT)Only the most recent of2 resultswithin the time period is included. Specimen Narrative Performed At EXAMINATION:XR CHEST 1 VW PORTABLE RADIANT CLINICAL HISTORY:ICU ptstable with no clinical status changes COMPARISON:02/03/2019 IMPRESSION: Interval extubation and removal of enteric tube. Right internal jugular CVC tip overlies the low SVC. The lungs and pleural spaces are clear.The cardiomediastinal silhouette is within normal limits.Aortic atherosclerosis and generalized skeletal osteopenia are again noted. [id number] Procedure Note Interface, Radiology Results Incoming - 02/04/2019 7:56 AM CDT EXAMINATION: XR CHEST 1 VW PORTABLE CLINICAL HISTORY: ICU pt stable with no clinical status changes COMPARISON: 02/03/2019 IMPRESSION: Interval extubation and removal of enteric tube. Right internal jugular CVC tip overlies the low SVC. The lungs and pleural spaces are clear. The cardiomediastinal silhouette is within normal limits. Aortic atherosclerosis and generalized skeletal osteopenia are again noted. [id number] Performing Organization Address City/[facility]/Zipcode Phone Number [employer] [address] [place] [address] Smear review (02/04/2019 2:15 AM CDT) Platelet slide review Gertrudis slt decr [facility] Anisocytosis Moderate [facility] Polychromasia Moderate [facility] Specimen Performing Organization Address City/State/Zipcode Phone Number [facility] DEPARTMENT OF PATHOLOGY AND [address] [place] [address] [facility] [address] [place] [address] Ionized calcium, arterial (02/04/2019 2:15 AM CDT)Only the most recent of6 resultswithin the time period is included. Pathologist [facility] Ionized calcium, 1.08 (L) 1.11 - 1.32 [facility] arterial mmol/L HOSPITAL Specimen Blood Performing Organization Address City/[facility] Phone Number [facility] DEPARTMENT OF PATHOLOGY AND [address] [place] [address] Partial thromboplastin time, activated (02/04/2019 2:15 AM CDT)Only the most recent of3 resultswithin the time period is included. Pathologist [facility] PTT 27.5 23.0 - 36.0 [facility] Comment: [facility] PTT therapeutic range for unfractionated heparin is 61.0-112.0 seconds which corresponds to Anti-Xa 0.3-0.7 U/ml. Specimen Blood Performing Organization Address [facility] Phone Number [facility] DEPARTMENT OF PATHOLOGY AND [address] [place] [address] Prothrombin time with INR (02/04/2019 2:15 AM CDT)Only the most recent of3 resultswithin the time period is included. [facility] Prothrombin time 15.2 (H) 11.5 - 14.5 [facility] INR 1.2 [place] Comment: CONFUCIANISM The International Normalized Ratio (INR) is a therapeutic HOSPITAL monitoring tool for patients who are stable on oral anticoagulant therapy. An INR of 2.0-3.0 is suggested for deep vein thrombosis/pulmonary embolism. Specimen Blood Performing Organization Address City/[facility] Phone Number [facility] DEPARTMENT OF PATHOLOGY AND [address] [place] [address] Arterial blood gas (02/04/2019 2:15 AM CDT)Only the most recent of2 resultswithin the time period is included. Pathologist [facility] pH, arterial 7.41 7.35 - 7.45 [facility] pCO2, arterial 42 35 - 45 mmHg [facility] pO2, arterial 115 (H) 80 - 90 mmHg [facility] Bicarbonate, 25.9 21.0 - 28.0 [facility] arterial mmol/L HOSPITAL Base excess, 2 -2 - 2 mEq/L [facility] O2 saturation, 98 95 - 100 % [facility] Specimen Blood Performing Organization Address City/State/Zipcode Phone Number [facility] DEPARTMENT OF PATHOLOGY AND [address] [place] [phone] [address] ECG Pre/Post Op (02/03/2019 7:23 PM CDT) Ventricular rate 75 [facility] Atrial rate 75 [facility] NM interval 134 [facility] MUSE QRSD interval 84 [facility] QT interval 416 [facility] QTC interval 464 [facility] MUSE P axis 1 74 [facility] QRS axis 1 60 [facility] T wave axis 78 [facility] MUSE EKG impression Normal sinus [facility] MUSE rhythm-Normal ECG- Specimen Narrative Performed At Performing Organization Address City/[facility] Phone Number [facility] MUSE [address] [place] [address] Sodium level, syringe (02/03/2019 6:00 PM CDT)Only the most recent of6 resultswithin the time period is included. Sodium, syringe 135 135 - 148 mEq/L [facility] Specimen Blood Performing Organization Address City/[facility] Phone Number [facility] DEPARTMENT OF PATHOLOGY AND [address] [place] [id number] [place] [address] Potassium, syringe (02/03/2019 6:00 PM CDT)Only the most recent of6 resultswithin the time period is included. Potassium, syringe 4.4 3.5 - 5.0 mEq/L [facility] Specimen Blood Performing Organization Address City/State/Zipcode Phone Number [facility] DEPARTMENT OF PATHOLOGY AND [address] [place] [phone] [address] Hemoglobin, syringe (02/03/2019 6:00 PM CDT)Only the most recent of6 resultswithin the time period is included. Hemoglobin, syringe 7.6 (L) 12.0 - 16.0 g/dL [facility] Specimen Blood Performing Organization Address City/[facility] Phone Number [facility] DEPARTMENT OF PATHOLOGY AND [address] [place] [phone] [address] Glucose level, syringe (02/03/2019 6:00 PM CDT)Only the most recent of6 resultswithin the time period is included. Glucose, syringe 109 (H) 65 - 99 mg/dL [facility] Specimen Blood Performing Organization Address [facility] Phone Number [facility] DEPARTMENT OF PATHOLOGY AND [address] [place] [phone] [address] Arterial blood gas, corrected (02/03/2019 6:00 PM CDT)Only the most recent of5 resultswithin the time period is included. pH, arterial 7.42 7.35 - 7.45 [facility] pCO2, arterial 43 35 - 45 mmHg [facility] pO2, arterial 149 (H) 80 - 90 mmHg [facility] Temperature, Celsius 37.0 Degrees C [facility] O2 saturation, 97 95 - 100 % [facility] arterial HOSPITAL pH, arterial 7.42 [facility] HOSPITAL pCO2, arterial 43 mmHg [facility]OS[facility]ITAL pO2, arterial 149 mmHg [facility] HOSPITAL Base excess, arterial 3 (H) -2 - 2 mEq/L [facility] Specimen Blood Performing Organization Address [facility] Phone Number [facility] DEPARTMENT OF PATHOLOGY AND [address] [place] [phone] [address] Activated clotting time (02/03/2019 4:50 PM CDT)Only the most recent of3 resultswithin the time period is included. [facility] Activated clotting 103 96 - 152 sec [facility] Comment: HOSPITAL Meter ID: [id number] Computer Aided Design Technician ID: Venkat Khan Specimen Performing Organization Address City/[facility] Phone Number [facility] DEPARTMENT OF PATHOLOGY AND [address] [place] [phone] [address] Prepare RBC, 1 Units (02/03/2019 9:27 AM CDT)Only the most recent of2 resultswithin the time period is included. Product name Red Blood Cells [facility] -1, Leukored HOSPITAL Unit number [id number] [facility] Product code [id number] [facility] Dispense status Transfused [facility] Blood expiration [id number] [facility] Blood type code 5100 [facility] Blood type O POSITIVE [facility] Specimen Blood Performing Organization Address City/[facility] Phone Number [facility] DEPARTMENT OF PATHOLOGY AND [address] [place] [address] Type and screen (02/03/2019 9:27 AM CDT) ABO grouping O [facility] Rh type POS [facility] Antibody screen (gel) NEG [facility] Specimen Blood Performing Organization Address City/[facility] Phone Number [facility] DEPARTMENT OF PATHOLOGY AND [address] [place] [address] Echocardiogram complete w contrast and 3D if needed (01/26/2019 5:28 PM CDT) Specimen Narrative [facility]formed At [facility] Echocardiography Report Pat.Name:JAE BENSON Pat.ID:[id number] St.Date: 01/26/2019 Refer.MD:MARY GOMEZ MD Exam Time: 11:37:00 AM Study Type:Routine Echo Height:68inWeight: 143lb BSA: 1.77 m2 DOBAge:1940,79Y Sex: FEMALEBP:137/65 HR:83 bpm Sonogrphr: ALLEY Shell FASE Pat. Stat.:OutpatientRoom:[facility] Study Status:Final Echo Event ID:[id number] Order ID:[id number] Reason for Study:Coronary artery disease involving naknek heart without angina pectoris Procedures:2D Echo, Colorflow Doppler Race:C SUMMARY: LV size and systolic function are normal. LV filling pressure is normal. Mild to moderate pulmonary hypertension. FINDINGS: LV: LV size is normal. There is mild concentric LV hypertrophy. AnLV tendon is seen. This is a normal variant. LV EF is normal.Overall wall motion is normal. Estimated EF is 60-64%. RV: RV size is normal. RV systolic function is normal. LA: LA volume is severely enlarged. RA: RA size is normal. AO: Aortic root diameter is normal. ARIANNA: No pericardial effusion. IAS:Interatrial septum morphology: lipomatous hypertrophy. AV: Mild thickening and calcification of AV leaflets. MV: Moderate thickening and calcification of mitral leaflets. Moderatemitral annular calcification. Thickened and/or calcifiedchordae. Calcified papillary muscle. Mild mitral regurgitation. PV: Pulmonic valve not well seen. TV: No structural TV abnormalities noted. Mild to moderate tricuspidregurgitation Jordan: LV filling pressure is normal. Other:Estimated PA systolic pressure is 51 mmHg, assuming a mean RAPof 5 mmHg. MEASUREMENTS: 2D Parasternal [place] LA Ds4.3 cmLV%fs 45.1 % Ao An1.6 cmIVSd 1.1 cm Ao Rtd 3.2 cmIndex1.8 cm/m LVPWd1.3 cm LVOT 1.8 cmLV Ksew076.7 g(87-129) LVIDd4.1 cmIndex2.3 cm/m LVM Index 97 g/m2 LVIDs2.2 cmRWT0.6 LA Sng Plane LA Area 27.2 cm2(8.8-23.4) LA Vol 100.8 ml Index56.9 ml/m LA LngAx 6.3 cm DOPPLER LVOT For Flow LVOT Area2.5 cm2 LVOT SV 71.6 ml GZOVuaMdo448.8 cm/sHR76.7 bpm LVOTpkPG 8.4 mmHgLVOT CO5.5 l/min LVOTmnPG 4 mmHgLVOT CI3.1 l/m/m2 LVOT TVI28.2 cm Signed 01/27/2019 03:55 PM Fransico Tanner M.D. Procedure Note Interface, Radiology Results In - 01/27/2019 3:56 PM CDT [facility] Echocardiography Report Pat.Name: JAE BENSON Pat.ID: [id number] St.Date: 01/26/2019 Refer.MD: MARY GOMEZ MD Exam Time: 11:37:00 AM Study Type:Routine Echo Height: 68in Weight: 143lb BSA: 1.77 m2 Age: 5 1940,79Y Sex: FEMALE BP: 137/65 HR: 83 bpm Sonogrphr: ALLEY Shell FASE Pat. Stat.:Outpatient Room: [facility] Study Status:Final Echo Event ID:[id number] Order ID: [id number] Reason for Study:Coronary artery disease involving naknek heart without angina pectoris Procedures:2D Echo, Colorflow Doppler Race: C SUMMARY: LV size and systolic function are normal. LV filling pressure is normal. Mild to moderate pulmonary hypertension. FINDINGS: LV: LV size is normal. There is mild concentric LV hypertrophy. An LV tendon is seen. This is a normal variant. LV EF is normal. Overall wall motion is normal. Estimated EF is 60-64%. RV: RV size is normal. RV systolic function is normal. LA: LA volume is severely enlarged. RA: RA size is normal. AO: Aortic root diameter is normal. ARIANNA: No pericardial effusion. IAS: Interatrial septum morphology: lipomatous hypertrophy. AV: Mild thickening and calcification of AV leaflets. MV: Moderate thickening and calcification of mitral leaflets. Moderate mitral annular calcification. Thickened and/or calcified chordae. Calcified papillary muscle. Mild mitral regurgitation. PV: Pulmonic valve not well seen. TV: No structural TV abnormalities noted. Mild to moderate tricuspid regurgitation Jordan: LV filling pressure is normal. Other: Estimated PA systolic pressure is 51 mmHg, assuming a mean RAP of 5 mmHg. MEASUREMENTS: 2D Parasternal [place] LA Ds 4.3 cm LV%fs 45.1 % Ao An 1.6 cm IVSd 1.1 cm Ao Rtd 3.2 cm Index 1.8 cm/m LVPWd 1.3 cm LVOT 1.8 cm LV Mass 171.7 g (87-129) LVIDd 4.1 cm Index 2.3 cm/m LVM Index 97 g/m2 LVIDs 2.2 cm RWT 0.6 LA Sng Plane LA Area 27.2 cm2 (8.8-23.4) LA Vol 100.8 ml Index 56.9 ml/m LA LngAx 6.3 cm DOPPLER LVOT For Flow LVOT Area 2.5 cm2 LVOT SV 71.6 ml LVOTpkVel 144.8 cm/s HR 76.7 bpm LVOTpkPG 8.4 mmHg LVOT CO 5.5 l/min LVOTmnPG 4 mmHg LVOT CI 3.1 l/m/m2 LVOT TVI 28.2 cm Signed 01/27/2019 03:55 PM Fransico Tanner M.D. Performing Organization Address City/State/Zipcode Phone Number [facility] [address] [place] [address] Cv stress test (01/26/2019 3:31 PM CDT) Resting HR 66 [facility] MUSE Resting BP 136 [facility] MUSE Peak MET Achieved 1.0 [facility] MUSE Protocol Name Ritchie [facility] MUSE Time in Exercise 00:01:00 [facility] Phase Max Systolic BP 136 H MUSE Max Diastolic BP 86 H MUSE Max Heart Rate 83 H MUSE Max Predicted Heart 142 [facility] Rate Target HR Formula (220 - Age)*85% [facility] Test Indication CORONARY ARTERY DISEASE [facility] Arrhy During Ex [facility] ECG Interp Before EX [facility] ECG Interp During Ex H MUSE Ex Summary Comment [facility] MUSE Chest Pain Statement none [facility] MUSE Overall HR Response H MUSE to Exercise Overall BP Response [facility] MUSE To Exercise Reason for [facility] Stress Test -Waveform interpreted [facility] MUSE Impression in report associated with image study. No interpretation is provided as part of this Stress ECG report.-Electronically Signed By Raul ULRICH, Chuck Hoskins ([id number]), legal editor Miguel Ángel May ([id number]) on 02/04/2019 10:03:17 AM Specimen Narrative Performed At Performing Organization Address [facility] Phone Number [facility] MUSE [address] [place] [address] Nm myocardial perfusion (01/26/2019 3:31 PM CDT) Specimen Narrative Performed At [facility] Nuclear Cardiology and Cardiac CT [address] [place] [address] Myocardial Perfusion Imaging Report Stress ECG tracings are available in MUSE, EPIC and CV Web All ECG interpretations are included in this report Pat.Name:JAE BENSON Pat.ID:[id number] St.Date: 01/25/2019 Refer.MD:MARY GOMEZ MD Exam Time: 8:30:00 AM Study Type:Myocardial Perfusion Imaging Height:68inWeight: 137.71lb BSA: 1.75 m2 DOBAge:1940,79Y Sex: FEMALENuclear Tech:BIJAN Yap Nuclear Event ID:[id number] Order ID:[id number] Reason for Study:CAD, unspecified* Procedures:Single Day Rest / Stress Race:C Clinical Symptoms:Regadenoson SUMMARY: BASELINE ECGNormal Sinus Rhythm STRESS TEST RESULTS Maximal Predicted HR142 beats/minute 85% Maximal Predicted HR 121 beats/minute Stress Test Duration1 minutes 00 seconds Resting Heart Rate65 beats/minute Maximal Heart Rate83 beats/minute Resting Blood Jlqpbbei910/86 mmHg Maximal Blood Ryzsnyuf787/86 mmHg % Maximal Heart Rate Achieved 58% Symptoms During TestFlushing, Dyspnea, Dizziness Reason for Stopping TestAs per regadenoson protocol Maximal ST-segment shiftNone Stress-Induced Arrhythmias None Ischemic electrocardiographic changes (ST-segment depression) did not occur at peak regadenoson stress. STRESS TEST INTERPRETATION Normal maximal regadenoson stress test. SCINTIGRAPHIC RESULTS Perfusion Defect Size (% LV) 0 % Total 0 % Ischemia 0 % Scar Left Ventricular Perfusion Results There is normal tracer distribution during stress and rest. Gated SPECT Results The post-stress left ventricular ejection fraction is 67 % with normal regional wall motion and left ventricular thickening.Left ventricular end-diastolic volume is 87 ml; end-systolic volume is29 ml. The left ventricle is of normal size at stress and at rest.The right ventricle is of normal size with normal wall motion. Conclusion Normal regadenoson Tc-99m tetrofosmin myocardial perfusion study. The left ventricular ejection fraction is normal. Comments Patients with a normal stress myocardial perfusion study have a low (< 1%) annual risk of cardiac or nonfatal myocardial infarction. Study Quality/Artifacts The study quality is fair. Comparison to Previous Study None available. Signed 01/28/2019 09:27 AM Chuck Carter MD Procedure Note Interface, Radiology Results In - 01/28/2019 9:28 AM CDT Nuclear Cardiology and Cardiac CT [address] [place] [address] Myocardial Perfusion Imaging Report Stress ECG tracings are available in [employer], [employer] and [employer] All ECG interpretations are included in this report Pat.Name: JAE BENSON Pat.ID: [id number] .Date: 01/25/2019 Refer.MD: MARY GOMEZ MD Exam Time: 8:30:00 AM Study Type:Myocardial Perfusion Imaging Height: 68in Weight: 137.71lb BSA: 1.75 m2 Age: 5 1940,79Y Sex: FEMALE Nuclear Tech:BIJAN Yap Nuclear Event ID:[id number] Order ID: [id number] Reason for Study:CAD, unspecified* Procedures:Single Day Rest / Stress Race: C Clinical Symptoms:Regadenoson SUMMARY: BASELINE ECG Normal Sinus Rhythm STRESS TEST RESULTS Maximal Predicted HR 142 beats/minute 85% Maximal Predicted HR 121 beats/minute Stress Test Duration 1 minutes 00 seconds Resting Heart Rate 65 beats/minute Maximal Heart Rate 83 beats/minute Resting Blood Pressure 136/86 mmHg Maximal Blood Pressure 136/86 mmHg % Maximal Heart Rate Achieved 58% Symptoms During Test Flushing, Dyspnea, Dizziness Reason for Stopping Test As per regadenoson protocol Maximal ST-segment shift None Stress-Induced Arrhythmias None Ischemic electrocardiographic changes (ST-segment depression) did not occur at peak regadenoson stress. STRESS TEST INTERPRETATION Normal maximal regadenoson stress test. SCINTIGRAPHIC RESULTS Perfusion Defect Size (% LV) 0 % Total 0 % Ischemia 0 % Scar Left Ventricular Perfusion Results There is normal tracer distribution during stress and rest. Gated SPECT Results The post-stress left ventricular ejection fraction is 67 % with normal regional wall motion and left ventricular thickening. Left ventricular end-diastolic volume is 87 ml; end-systolic volume is 29 ml. The left ventricle is of normal size at stress and at rest. The right ventricle is of normal size with normal wall motion. Conclusion Normal regadenoson Tc-99m tetrofosmin myocardial perfusion study. The left ventricular ejection fraction is normal. Comments Patients with a normal stress myocardial perfusion study have a low (< 1%) annual risk of cardiac or nonfatal myocardial infarction. Study Quality/Artifacts The study quality is fair. Comparison to Previous Study None available. Signed 01/28/2019 09:27 AM Chuck Carter MD Performing Organization Address City/State/Zipcode Phone Number [facility] [address] [place] [address] Cv invasive peripheral vascular procedure (01/19/2019 1:54 PM CDT) Specimen Narrative Performed At Peripheral CATHETERIZATION PROCEDURE NOTE SYNGO PREOPERATIVE DIAGNOSIS 1.Claudication 2.Peripheral Arterial Disease POSTOPERATIVE DIAGNOSIS 1.Claudication 2.Peripheral Arterial Disease PROCEDURES PERFORMED 1.Abdominal Aortogram with runoff 2.DSA and angiography of the left iliac and common femoral artery and bypass graft. 3.DSA and angiography of the right iliac and common femoral artery and bypass graft. FILLING AND PACKING SUPERVISOR Dr. Mary Gomez, Thread Laster OUTSOLE FLEXER Jarvis Chandler MD ANESTHESIA USED Local 2% lidocaine, Conscious Sedation DESCRIPTION OF PROCEDURE The procedure was described to the patient including benefits, risks, and alternatives to the procedure.The patient confirmed understanding and signed the informed consent.The patient was brought to vat house laborer, room [facility] of [facility].Patient was prepped and draped in sterile fashion. Conscious sedation provided to patient throughout procedure with appropriate monitoring. The left radial artery (TASSEL MAKING MACHINE OPERATOR) was palpated and was anesthetized with 2% local lidocaine.Using Micropuncture needle and ultrasound guidance, arterial access was obtained in the left radial artery and a 6F sheath was placed without difficulty. A 6F diagnostic MPA2 was advanced over a Wholey wire to the infrarenal aorta.The wire was removed, the catheter aspirated to ensure no air was in the system and flushed in the usual fashion.A distal abdominal aortogram with runoffs was performed. Further dedicated DSA and angiography of the left iliac and common femoral artery and bypass graft was performed followed by DSA and angiography of the right iliac and common femoral artery and bypass graft. Findings of the angiography demonstrated infrarenal atherosclerotic plaque. There was complete occlusion of the right common and external iliac arteries. There was a 90%, eccentric, severely calcified lesion in the left external iliac/TASSEL MAKING MACHINE OPERATOR just proximal to the takeoff of the hkqf-[id number]-zp-right femoral bypass graft. Just distal to the takeoff of the bypass graft, there was another high grade, 90%, eccentric, severely calcified lesion in the left common femoral artery. The right TASSEL MAKING MACHINE OPERATOR is patent and receives blood from the graft, the right SFA has a 95% eccentric, calcified lesion present with poor distal flow. Angiography and runoff revealed three vessel runoff in the left lower extremity with a high takeoff of the anterior tibial artery. The right lower extremity was only viewed until the pjrpu-[id number]-dbfj portion of the popliteal artery and noted more sluggish distal flow. At this time, given the complexity of disease and the current access site of the left radial artery, we decided to end the case. The arterial sheath was aspirated and flushed and this was removed with the use of a Tracelet for hemostasis. The patient was sent to the holding area in stable condition.The patient was hemodynamically stable throughout the entirety of the procedure. DISPOSITION: Return patient to nursing unit and give post hydration. Vascular surgery consultation for further evaluation. EBL: <30 mL CONDITION:Stable COMPLICATIONS: None Jarvis Chandler MD 01/19/2019 2:06 PM Performing Organization Address [facility] Phone Number [facility] [address] [place] [address] COPY RECEIVED FROM: (01/12/2019 9:25 AM CDT) Copy received from: [employer] Comment: MANICHRISTINEKelley [address] [place] [address] Specimen Narrative Performed At FASTING:YES [facility] FASTING: YES Performing Organization Address [facility] Phone Number [facility] COPY(IES) SENT TO: (01/12/2019 9:25 AM CDT) Copies/mL [facility] Comment: LEXI CARDIO [id number] [facility] [address] [place] [address] Specimen Narrative Performed At FASTING:YES [facility] FASTING: YES Performing Organization Address [facility] Phone Number [facility] Comprehensive metabolic panel (01/12/2019 9:25 AM CDT) Glucose 79 65 - 99 [facility] Comment: mg/dL [place] Fasting reference interval BUN, whole blood 22 7 - 25 mg/dL [facility] [facility] [place] Creatinine 1.15 (H) 0.60 - 0.93 [facility] Comment: mg/dL [place] For patients >49 years of age, the reference limit for Creatinine is approximately 13% higher for people identified as -[place]. EGFR Non-Afr. 46 (L) > OR=60 [facility] [place] mL/min/1.73m [place] 2 EGFR 53 (L) > OR=60 [facility] [place] mL/min/1.73m [place] 2 BUN/creatinine 19 6 - 22 [facility] ratio (calc) [place] Sodium 140 135 - 146 [facility] mmol/L [place] Potassium 4.6 3.5 - 5.3 [facility] mmol/L [place] Chloride 99 98 - 110 [facility] mmol/L [place] CO2 30 20 - 32 [facility] mmol/L [place] Calcium 9.6 8.6 - 10.4 [facility] mg/dL [place] Protein 6.4 6.1 - 8.1 [facility] g/dL [place] Albumin, S 3.8 3.6 - 5.1 [facility] g/dL [place] Globulin, total 2.6 1.9 - 3.7 [facility] g/dL (calc) [place] Albumin/globulin 1.5 1.0 - 2.5 [facility] ratio (calc) [place] Total bilirubin 0.3 0.2 - 1.2 [facility] mg/dL [place] Alkaline 60 33 - 130 U/L [facility] phosphatase [place] AST 25 10 - 35 U/L [employer] [facility] [place] ALT 47 (H) 6 - 29 U/L [employer] [facility] [place] Specimen Narrative Performed At FASTING:YES [facility] FASTING: YES Resulting Agency Comment Performing Organization Information: Site ID: [id number] Name: [facility] Address: [address] [place] [id number] Director: Kathya Ocasio Performing Organization Address City/State/Zipcode Phone Number [employer] [place] [address] [place], [place] [id number] CTA Abdominal Aorta And Bilateral Iliofemoral Runoff W Wo Contrast (12/10/2018 2:25 PM [facility]) Specimen Narrative Performed At EXAM: [facility] CT ANGIOGRAM ABDOMINAL AORTA AND BILATERAL ILIOFEMORAL RUNOFF W WO CONTRAST INDICATION: I73.9 Peripheral vascular diseaseunspecified, other COMPARISON: None. TECHNIQUE: After administration of iodinated contrast intravenously, axial CT images of the abdomen, pelvis, bilateral lower extremities with runoff were obtained. Coronal and sagittal maximal intensity projection images were obtained. 3-D volumetric reconstructions of the arterial system were obtained. Iterative reconstruction and/or automated exposure control techniques were employed to reduce radiation dose. FINDINGS: Limited chest: Visualized portions of the esophagus are normal. Top normal heart size. Moderate calcification the mitral annulus. Visualized portions the pericardium are normal. No adenopathy was portions the chest. Mild centrilobular emphysema within the bilateral lower lungs. Minimal linear opacity lingula, discoid atelectasis versus thickening minor fissure. 3 mm diameter nodule posterior lateral aspect right lower lobe (series 3, slice 22). Minimal eventration of the left hemidiaphragm. Abdomen: 3 mm diameter calcified granuloma anterior inferior right lobe liver, segment 5 (series 3, slice 59). Otherwise, liver is normal. Gallbladder is normal. Common bile duct measures up to 1.0 cm in maximal coronal diameter, which is slightly greater than expected for a patient of this age. Normal in the 9 mm. However, appears to smoothly taper to a normal caliber within the pancreatic head. No evidence of extrinsic mass compression or filling defect. Nevertheless, clinical concern for biliary obstruction exists, consider further evaluation with MRCP. Pancreas is normal. Spleen is normal. Moderate to marked multifocal left renal cortical atrophy, which is asymmetrically greatest within left kidney upper pole. Compensatory hypertrophy of the right kidney. Moderate perinephric fat stranding bilaterally. Several subcentimeter hypodensities scattered throughout the right kidney cortex which are too small to definitively characterize but statistically likely to be simple cysts. Stomach is normal. Duodenum is normal. Remainder of small bowel is normal. Appendix is not definitively identified and may be surgically absent. Colon is normal. Pelvis: Bladder is markedly distended with urine. Bladder wall is normal. Status post hysterectomy. Calcification bilateral parametrial vessels. Vaginal cuff is unremarkable. Rectum is normal. Bilateral inguinal canals and ischiorectal fossa are normal. Axial musculoskeletal: Midline laparotomy scar. Moderate left convex curvature of the lumbar spine. Mild degenerative changes of the lumbar spine with multilevel degenerative disc disease with vacuum cleft phenomenon. 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 Minimal arthrosis bilateral sacroiliac joints. Marked arthrosis pubic symphysis. Deformity bilateral inferior pubic rami, compatible with healed old fractures. Osteopenia. No suspicious osseous or soft tissue structures. Right lower extremity musculoskeletal: Moderate arthrosis right hip. Bone island right femoral head. Patchy sclerotic focus posterior aspect right medial femoral condyle. At least moderate tricompartmental arthrosis right knee greatest within the patellofemoral compartment. Large suprapatellar effusion. No Fisher's cyst. Scattered minimal calcifications of the joint capsule superiorly. Lobulated sclerotic focus with peripheral sclerosis and patchy internal sclerosis within the proximal tibial metadiaphysis, favoring bone infarct or enchondroma. Otherwise, tibia and fibula are normal. Visualized portions of the right ankle are normal. Soft tissues of the right calf demonstrate mild diffuse subcutaneous edema greatest posteriorly. Visualized soft tissues the right thigh demonstrate postsurgical changes of the femoral femoral bypass graft further detailed under the vascular subsection below. Left lower extremity musculoskeletal Moderate arthrosis left hip. Prominent bone island left femoral head. Subchondral sclerosis medial and femoral condyles, degenerative versus sequela bone infarcts. At least moderate tricompartmental arthrosis right knee greatest within the patellofemoral compartment. Few loose periarticular osseous bodies. Fabella, an anatomic variant. Large suprapatellar effusion. No Fisher's cyst. Visualized portions the left tibia and fibula are normal. Mild subcutaneous edema left calf. Otherwise, soft tissues left calf are normal. Postsurgical changes of femoral femoral bypass graft further detailed under the basilar subsection below. Vascular: Descending thoracic aorta: Moderate tortuosity. Moderate multifocal mixed plaque with resultant surface luminal irregularity without significant luminal narrowing. Abdominal aorta: Moderate multifocal calcified atherosclerotic plaque greatest inferiorly. Postsurgical changes of aorto left external iliac bypass graft, which is widely patent. Moderate multifocal luminal narrowing and plaque surface irregularity without tessie ulceration. Celiac axis: Moderate ostial calcified atherosclerotic plaque with mild associated luminal narrowing. Conventional celiac arterial anatomy. Moderate multifocal calcified atherosclerotic plaque throughout the splenic artery with mild multifocal luminal narrowing. Superior mesenteric artery: Moderate ostial calcified atherosclerotic plaque with moderate associated luminal narrowing. Otherwise normal course and caliber. Right renal artery: Solitary. Stent proximally. Stent is widely patent. Otherwise normal course and caliber. Left renal artery: Solitary. Ostial stent. Near complete to complete occlusion of the ostial stent. Persistent minimal enhancement of the left renal parenchyma. Resultant left renal atrophy. Inferior mesenteric artery: Occluded from its takeoff. Perfused distally via mesenteric collaterals. Right common iliac artery: Completely occluded. Large volume calcified atherosclerotic plaque throughout. Right internal iliac artery: Completely occluded proximally. Perfused distally likely via contralateral pelvic collaterals. Right external iliac artery: Completely occluded to the inflow of the inferior epigastric artery. Right common femoral artery: Perfused bypass graft, which is widely patent. Marked calcified atherosclerotic plaque within the common femoral artery below the insertion of the bypass graft with marked resultant luminal narrowing. Right profunda femoris artery: Moderate ostial calcified atherosclerotic plaque with moderate associated luminal narrowing. Hypertrophic. Largely perfused via collaterals from the right internal iliac artery. Right superficial femoral artery: Moderate ostial calcified atherosclerotic plaque with moderate associated luminal narrowing. Mild wall calcification distally with mild associated luminal narrowing. Right popliteal artery: Anatomic variant high takeoff of the tibialis anterior artery. Right tibialis anterior artery: Mild wall calcification with mild luminal narrowing. Right tibioperoneal trunk: Mild wall calcification with mild luminal narrowing. Right posterior tibial artery: Mild multifocal calcified atherosclerotic plaque with mild/moderate multifocal luminal narrowing. Right peroneal artery: Moderate multifocal calcified upper scar plaque with mild to moderate multifocal luminal narrowing. Left common iliac artery: Completely occluded. Large bulky calcification throughout. Left internal iliac artery: Completely occluded proximally. Perfused distally likely via ipsilateral femoral collaterals. Left external iliac artery: Completely occluded proximally with large-volume calcified atherosclerotic plaque. Perfused by its midportion via an aorto external iliac bypass graft, which is widely patent. Left common femoral artery: Left femoral to right femoral bypass graft, which is patent. Large calcified atherosclerotic plaque throughout the left common femoral artery with marked resultant luminal narrowing both superiorly and inferiorly to the femoral-femoral bypass graft. Left profunda femoris artery: Hypertrophic, likely supplying the left internal iliac and right internal iliac supply. Left superficial femoral artery: Moderate calcified upper scar plaque at its takeoff with moderate associated luminal narrowing. Mild noncalcified upper scar plaque distally with mild associated luminal narrowing. Left popliteal artery: Anatomic variant high takeoff of the left anterior tibial artery. Mild multifocal calcified atherosclerotic plaque with mild multifocal luminal narrowing. Left anterior tibialis artery: Mild multifocal wall calcification/plaque with mild multifocal luminal narrowing. Moderate calcified atherosclerotic just superior to the level of the ankle with moderate associated luminal narrowing. Left tibioperoneal trunk: Mild concentric wall calcification with mild associated luminal narrowing. Left posterior tibial artery: Mild multifocal wall calcification and mixed plaque with mild multifocal luminal narrowing. Moderate noncalcified plaque within its midportion with moderate associated luminal narrowing (series 3, slice 85). Left peroneal artery: Mild multifocal wall calcification with mild multifocal luminal narrowing. Full evaluation of systemic and portal venous structures limited by contrast bolus timing. No abdominal, pelvic, or inguinal adenopathy. IMPRESSION: 1. Extensive aortoiliac atherosclerotic disease with occlusion of the lower abdominal aorta and bilateral common iliac and central external and internal iliac arteries status post placement left aortoiliac external iliac bypass graft and left femoral to right femoral bypass grafts, which are patent. Additional marked calcified atherosclerotic plaque within the bilateral common femoral arteries with marked associated luminal narrowing, as noted above. 2. Arterial stents within the bilateral renal arteries. Right stent is widely patent. Left stent demonstrates marked internal mixed plaque with near complete to complete resultant occlusion. Asymmetric atrophy of the left kidney and compensatory hypertrophy of the right kidney suggests that this is chronic. 3. Common bile duct measures up to 1.0 cm in maximal coronal diameter, which is slightly greater than expected for a patient of this age. Normal in the 9 mm. However, appears to smoothly taper to a normal caliber within the pancreatic head. No evidence of extrinsic mass compression or filling defect. Nevertheless, clinical concern for biliary obstruction exists, consider further evaluation with MRCP. 4. 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 [facility]-[id number] Procedure Note Interface, Radiology Results Incoming - 12/10/2018 4:20 PM [facility] EXAM: CT ANGIOGRAM ABDOMINAL AORTA AND BILATERAL ILIOFEMORAL RUNOFF W WO CONTRAST INDICATION: I73.9 Peripheral vascular disease unspecified, other COMPARISON: None. TECHNIQUE: After administration of iodinated contrast intravenously, axial CT images of the abdomen, pelvis, bilateral lower extremities with runoff were obtained. Coronal and sagittal maximal intensity projection images were obtained. 3-D volumetric reconstructions of the arterial system were obtained. Iterative reconstruction and/or automated exposure control techniques were employed to reduce radiation dose. FINDINGS: Limited chest: Visualized portions of the esophagus are normal. Top normal heart size. Moderate calcification the mitral annulus. Visualized portions the pericardium are normal. No adenopathy was portions the chest. Mild centrilobular emphysema within the bilateral lower lungs. Minimal linear opacity lingula, discoid atelectasis versus thickening minor fissure. 3 mm diameter nodule posterior lateral aspect right lower lobe (series 3, slice 22). Minimal eventration of the left hemidiaphragm. Abdomen: 3 mm diameter calcified granuloma anterior inferior right lobe liver, segment 5 (series 3, slice 59). Otherwise, liver is normal. Gallbladder is normal. Common bile duct measures up to 1.0 cm in maximal coronal diameter, which is slightly greater than expected for a patient of this age. Normal in the 9 mm. However, appears to smoothly taper to a normal caliber within the pancreatic head. No evidence of extrinsic mass compression or filling defect. Nevertheless, clinical concern for biliary obstruction exists, consider further evaluation with MRCP. Pancreas is normal. Spleen is normal. Moderate to marked multifocal left renal cortical atrophy, which is asymmetrically greatest within left kidney upper pole. Compensatory hypertrophy of the right kidney. Moderate perinephric fat stranding bilaterally. Several subcentimeter hypodensities scattered throughout the right kidney cortex which are too small to definitively characterize but statistically likely to be simple cysts. Stomach is normal. Duodenum is normal. Remainder of small bowel is normal. Appendix is not definitively identified and may be surgically absent. Colon is normal. Pelvis: Bladder is markedly distended with urine. Bladder wall is normal. Status post hysterectomy. Calcification bilateral parametrial vessels. Vaginal cuff is unremarkable. Rectum is normal. Bilateral inguinal canals and ischiorectal fossa are normal. Axial musculoskeletal: Midline laparotomy scar. Moderate left convex curvature of the lumbar spine. Mild degenerative changes of the lumbar spine with multilevel degenerative disc disease with vacuum cleft phenomenon. 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 Minimal arthrosis bilateral sacroiliac joints. Marked arthrosis pubic symphysis. Deformity bilateral inferior pubic rami, compatible with healed old fractures. Osteopenia. No suspicious osseous or soft tissue structures. Right lower extremity musculoskeletal: Moderate arthrosis right hip. Bone island right femoral head. Patchy sclerotic focus posterior aspect right medial femoral condyle. At least moderate tricompartmental arthrosis right knee greatest within the patellofemoral compartment. Large suprapatellar effusion. No Fisher's cyst. Scattered minimal calcifications of the joint capsule superiorly. Lobulated sclerotic focus with peripheral sclerosis and patchy internal sclerosis within the proximal tibial metadiaphysis, favoring bone infarct or enchondroma. Otherwise, tibia and fibula are normal. Visualized portions of the right ankle are normal. Soft tissues of the right calf demonstrate mild diffuse subcutaneous edema greatest posteriorly. Visualized soft tissues the right thigh demonstrate postsurgical changes of the femoral femoral bypass graft further detailed under the vascular subsection below. Left lower extremity musculoskeletal Moderate arthrosis left hip. Prominent bone island left femoral head. Subchondral sclerosis medial and femoral condyles, degenerative versus sequela bone infarcts. At least moderate tricompartmental arthrosis right knee greatest within the patellofemoral compartment. Few loose periarticular osseous bodies. Fabella, an anatomic variant. Large suprapatellar effusion. No Fisher's cyst. Visualized portions the left tibia and fibula are normal. Mild subcutaneous edema left calf. Otherwise, soft tissues left calf are normal. Postsurgical changes of femoral femoral bypass graft further detailed under the basilar subsection below. Vascular: Descending thoracic aorta: Moderate tortuosity. Moderate multifocal mixed plaque with resultant surface luminal irregularity without significant luminal narrowing. Abdominal aorta: Moderate multifocal calcified atherosclerotic plaque greatest inferiorly. Postsurgical changes of aorto left external iliac bypass graft, which is widely patent. Moderate multifocal luminal narrowing and plaque surface irregularity without tessie ulceration. Celiac axis: Moderate ostial calcified atherosclerotic plaque with mild associated luminal narrowing. Conventional celiac arterial anatomy. Moderate multifocal calcified atherosclerotic plaque throughout the splenic artery with mild multifocal luminal narrowing. Superior mesenteric artery: Moderate ostial calcified atherosclerotic plaque with moderate associated luminal narrowing. Otherwise normal course and caliber. Right renal artery: Solitary. Stent proximally. Stent is widely patent. Otherwise normal course and caliber. Left renal artery: Solitary. Ostial stent. Near complete to complete occlusion of the ostial stent. Persistent minimal enhancement of the left renal parenchyma. Resultant left renal atrophy. Inferior mesenteric artery: Occluded from its takeoff. Perfused distally via mesenteric collaterals. Right common iliac artery: Completely occluded. Large volume calcified atherosclerotic plaque throughout. Right internal iliac artery: Completely occluded proximally. Perfused distally likely via contralateral pelvic collaterals. Right external iliac artery: Completely occluded to the inflow of the inferior epigastric artery. Right common femoral artery: Perfused bypass graft, which is widely patent. Marked calcified atherosclerotic plaque within the common femoral artery below the insertion of the bypass graft with marked resultant luminal narrowing. Right profunda femoris artery: Moderate ostial calcified atherosclerotic plaque with moderate associated luminal narrowing. Hypertrophic. Largely perfused via collaterals from the right internal iliac artery. Right superficial femoral artery: Moderate ostial calcified atherosclerotic plaque with moderate associated luminal narrowing. Mild wall calcification distally with mild associated luminal narrowing. Right popliteal artery: Anatomic variant high takeoff of the tibialis anterior artery. Right tibialis anterior artery: Mild wall calcification with mild luminal narrowing. Right tibioperoneal trunk: Mild wall calcification with mild luminal narrowing. Right posterior tibial artery: Mild multifocal calcified atherosclerotic plaque with mild/moderate multifocal luminal narrowing. Right peroneal artery: Moderate multifocal calcified upper scar plaque with mild to moderate multifocal luminal narrowing. Left common iliac artery: Completely occluded. Large bulky calcification throughout. Left internal iliac artery: Completely occluded proximally. Perfused distally likely via ipsilateral femoral collaterals. Left external iliac artery: Completely occluded proximally with large-volume calcified atherosclerotic plaque. Perfused by its midportion via an aorto external iliac bypass graft, which is widely patent. Left common femoral artery: Left femoral to right femoral bypass graft, which is patent. Large calcified atherosclerotic plaque throughout the left common femoral artery with marked resultant luminal narrowing both superiorly and inferiorly to the femoral-femoral bypass graft. Left profunda femoris artery: Hypertrophic, likely supplying the left internal iliac and right internal iliac supply. Left superficial femoral artery: Moderate calcified upper scar plaque at its takeoff with moderate associated luminal narrowing. Mild noncalcified upper scar plaque distally with mild associated luminal narrowing. Left popliteal artery: Anatomic variant high takeoff of the left anterior tibial artery. Mild multifocal calcified atherosclerotic plaque with mild multifocal luminal narrowing. Left anterior tibialis artery: Mild multifocal wall calcification/plaque with mild multifocal luminal narrowing. Moderate calcified atherosclerotic just superior to the level of the ankle with moderate associated luminal narrowing. Left tibioperoneal trunk: Mild concentric wall calcification with mild associated luminal narrowing. Left posterior tibial artery: Mild multifocal wall calcification and mixed plaque with mild multifocal luminal narrowing. Moderate noncalcified plaque within its midportion with moderate associated luminal narrowing (series 3, slice 85). Left peroneal artery: Mild multifocal wall calcification with mild multifocal luminal narrowing. Full evaluation of systemic and portal venous structures limited by contrast bolus timing. No abdominal, pelvic, or inguinal adenopathy. IMPRESSION: 1. Extensive aortoiliac atherosclerotic disease with occlusion of the lower abdominal aorta and bilateral common iliac and central external and internal iliac arteries status post placement left aortoiliac external iliac bypass graft and left femoral to right femoral bypass grafts, which are patent. Additional marked calcified atherosclerotic plaque within the bilateral common femoral arteries with marked associated luminal narrowing, as noted above. 2. Arterial stents within the bilateral renal arteries. Right stent is widely patent. Left stent demonstrates marked internal mixed plaque with near complete to complete resultant occlusion. Asymmetric atrophy of the left kidney and compensatory hypertrophy of the right kidney suggests that this is chronic. 3. Common bile duct measures up to 1.0 cm in maximal coronal diameter, which is slightly greater than expected for a patient of this age. Normal in the 9 mm. However, appears to smoothly taper to a normal caliber within the pancreatic head. No evidence of extrinsic mass compression or filling defect. Nevertheless, clinical concern for biliary obstruction exists, consider further evaluation with MRCP. 4. 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 [facility] [id number] Performing Organization Address City/[facility]/Zipcode Phone Number [facility] [address] [place] [id number] POC creatinine (12/10/2018 9:41 AM [facility]) POC creatinine 1.5 (H) 0.5 - 0.9 mg/dl [facility] Comment: HOSPITAL Meter ID: [id number] Computer Aided Design Technician: Ana Maria Parsons Specimen Blood Performing Organization Address [facility] Phone Number [facility] DEPARTMENT OF PATHOLOGY AND [address] [place] [id number] GENOM[facility] MEDICINE [address] [address] Pv carotid duplex (05/27/2018 2:18 PM CDT) Specimen Narrative Performed At [facility] Carotid Artery Ultrasound Report Pat.Name:JAE BENSON Pat.ID:[id number] St.Date: 05/27/2018 Refer.MD:MARY GOMEZ MD Exam Time: 2:16:00 PMStudy Type:Carotid DOBAge:1940,78YSex: FEMALE Sonogrphr: Dann Salvador RVTPat. Stat.:Outpatient CPT - 4: 00122 Echo Event ID:[id number] Order ID:[id number] Reason for Study:Yearly followup evaluation severe right [...] cm/sVertebral EDV 16.3 cm/s Left Vertebral Vertebral AOX624 cm/sVertebral EDV 55.6 cm/s Right SCA Prox SCA Prox PSV75 cm/s Left SCA Prox SCA Prox PSV 122 cm/s Right ICA/CCA Ratio ICA/CCA PSV 2.86 Signed 06/02/2018 10:58 AM Mary Gomez MD Procedure Note Interface, Radiology Results In - 06/02/2018 10:58 AM CDT [facility] Carotid Artery Ultrasound Report Pat.Name: JAE BENSON Pat.ID: [id number] .Date: 05/27/2018 Refer.MD: MARY GOMEZ MD Exam Time: 2:16:00 PM Study Type:Carotid Age: 5 1940,78Y Sex: FEMALE Sonogrphr: Dann Salvador RVT Pat. Stat.:Outpatient CPT - 4: 07905 Echo Event ID:[id number] Order ID: [id number] Reason for Study:Yearly followup evaluation severe right [...] ICA/CCA PSV 2.86 Signed 06/02/2018 10:58 AM Mary Gomez MD Performing Organization Address [facility]/State[facility] Phone Number [facility] [address] [place] [address] after 04/04/2018 Advance Directives Patient has advance care planning documents on file. For more information, please contact:[address] [place] [address]
--- OUTSIDE RECORDS SUMMARY | 2019-04-05 01:31 | XMS REPORT ---
:1940 [facility] Address [address] [place] [address] Dr. Marina [address] [place] [id number] Care Team Providers Name Role Phone IFRAH [...] Reference Range Comments HEMOGLOBIN A1C (BEAKER) (test hqcb=112) 5.6 % 4.3-6.1 VITAMIN [id number] 07:58:00 Test Item Value Reference Range Comments VITAMIN B12 (BEAKER) (test dlmn=127) 317 pg/mL 213-816 TSH/FREE T4 IF [id number] 07:51:00 Test Item Value Reference Range Comments THYROID STIMULATING HORMONE (BEAKER) (test 1.65 uIU/mL 0.35-4.94 hqww=632) [id number] 07:37:00 Test Item Value Reference Range Comments MAGNESIUM (BEAKER) (test bhcb=301) 2.0 mg/dL 1.6-2.6 BASIC METABOLIC [id number] 07:37:00 Test Item Value Reference Range Comments SODIUM (BEAKER) (test 138 meq/L 136-145 ibrv=400) POTASSIUM (BEAKER) (test 4.8 meq/L 3.5-5.1 drrd=240) CHLORIDE (BEAKER) (test 103 meq/L 98-107 wikf=743) CO2 (BEAKER) (test 25 meq/L 22-29 gtga=066) BLOOD UREA NITROGEN 21 mg/dL 7-21 (BEAKER) (test zcup=905) CREATININE (BEAKER) (test 0.86 mg/dL 0.57-1.25 konq=637) GLUCOSE RANDOM (BEAKER) 68 mg/dL 70-105 (test zdwy=954) CALCIUM (BEAKER) (test 8.4 mg/dL 8.4-10.2 qkrv=752) EGFR (BEAKER) (test 64 mL/min/1.73 sq m ESTIMATED GFR IS NOT vvda=6615) ACCURATE CREATININE CLEARANCE IN PREDICTING GLOMERULAR FILTRATION RATE. ESTIMATED GFR IS NOT APPLICABLE FOR DIALYSIS PATIENTS. LIPID [id number] 07:37:00 Test Item Value Reference Range Comments TRIGLYCERIDES (BEAKER) (test nqmb=196) 93 mg/dL CHOLESTEROL (BEAKER) (test rnpe=669) 146 mg/dL HDL CHOLESTEROL (BEAKER) (test czoq=362) 56 mg/dL LDL CHOLESTEROL CALCULATED (BEAKER) (test 71 mg/dL twkr=222) Triglyceride Reference Range: Low Risk <150 Borderline 150- 199 High Risk 200-499 Very High Risk >=500Cholesterol Reference Range: Low Risk <200 Borderline 200-239 High Risk > 240HDL Cholesterol Reference Range: Low Risk >=60 High Risk <40LDL Cholesterol Reference Range: Optimal <100 Near Optimal 100-129 Borderline 130-159 High 160-189 Very High >=190HEPATIC FUNCTION [id number] 07:37:00 Test Item Value Reference Range Comments TOTAL PROTEIN (BEAKER) (test uwfp=334) 6.1 gm/dL 6.0-8.3 ALBUMIN (BEAKER) (test qlyp=5227) 3.8 g/dL 3.5-5.0 BILIRUBIN TOTAL (BEAKER) (test umqf=580) 0.3 mg/dL 0.2-1.2 BILIRUBIN DIRECT (BEAKER) (test robf=199) 0.1 mg/dL 0.1-0.5 ALKALINE PHOSPHATASE (BEAKER) (test mkpy=362) 56 U/L 40-150 AST (SGOT) (BEAKER) (test faxw=211) 17 U/L 5-34 ALT (SGPT) (BEAKER) (test nwpv=149) 8 U/L 6-55 CBC W/PLT COUNT & AUTO [id number] 07:33:00 Test Item Value Reference Range Comments WHITE BLOOD CELL COUNT (BEAKER) (test ubeh=408) 5.1 K/ L 4.0-10.0 RED BLOOD CELL COUNT (BEAKER) (test nptp=785) 4.01 M/ L 4.00-5.00 HEMOGLOBIN (BEAKER) (test wclw=147) 12.8 GM/DL 12.0-15.0 HEMATOCRIT (BEAKER) (test txtg=394) 39.7 % 36.0-45.0 MEAN CORPUSCULAR VOLUME (BEAKER) (test yfky=638) 98.9 fL 82.0-99.0 MEAN CORPUSCULAR HEMOGLOBIN (BEAKER) (test 32.0 pg 27.0-33.0 ntsy=410) MEAN CORPUSCULAR HEMOGLOBIN CONC (BEAKER) (test 32.4 GM/DL 32.0-36.0 orij=144) RED CELL DISTRIBUTION WIDTH (BEAKER) (test 13.6 % 10.3-14.2 zvsp=868) PLATELET COUNT (BEAKER) (test ubdq=412) 195 K/CU MM 150-430 MEAN PLATELET VOLUME (BEAKER) (test fuuf=314) 7.4 fL 6.5-10.5 NUCLEATED RED BLOOD CELLS (BEAKER) (test 0 /100 WBC 0-0 sbit=980) NEUTROPHILS RELATIVE PERCENT (BEAKER) (test 46 % ufhl=121) LYMPHOCYTES RELATIVE PERCENT (BEAKER) (test 41 % pahk=233) MONOCYTES RELATIVE PERCENT (BEAKER) (test 11 % kexf=831) EOSINOPHILS RELATIVE PERCENT (BEAKER) (test 1 % gvlg=910) BASOPHILS RELATIVE PERCENT (BEAKER) (test 1 % hlfn=480) NEUTROPHILS ABSOLUTE COUNT (BEAKER) (test 2.34 K/ L 1.80-8.00 wuzs=577) LYMPHOCYTES ABSOLUTE COUNT (BEAKER) (test 2.10 K/ L 1.48-4.50 lxws=509) MONOCYTES ABSOLUTE COUNT (BEAKER) (test 0.58 K/ L 0.00-1.30 iwqe=104) EOSINOPHILS ABSOLUTE COUNT (BEAKER) (test 0.03 K/ L 0.00-0.50 phdw=060) BASOPHILS ABSOLUTE COUNT (BEAKER) (test 0.06 K/ L 0.00-0.20 ixln=573) 0.00PT/[id number] 07:04:00 Test Item Value Reference Range Comments PROTIME (BEAKER) (test vhjf=543) 12.8 seconds 11.7-14.7 INR (BEAKER) (test xvcm=768) 1.0 <=5.9 PARTIAL THROMBOPLASTIN TIME (BEAKER) (test 26.8 seconds 22.5-36.0 jhmx=222) RECOMMENDED COUMADIN/WARFARIN INR THERAPY RANGESSTANDARD DOSE: 2.0 - 3.0 Includes: PROPHYLAXIS forvenous thrombosis, systemic embolization; TREATMENT for venous thrombosis and/or pulmonary embolus.HIGH RISK: Target INR is 2.5-3.5 for patients with mechanical heart valves.PROTHROMBIN [id number] 07:03: 00 Test Item Value Reference Range Comments PROTIME (BEAKER) (test khuk=420) 12.8 seconds 11.7-14.7 INR (BEAKER) (test joui=578) 1.0 <=5.9 RECOMMENDED COUMADIN/WARFARIN INR THERAPY RANGESSTANDARD DOSE: 2.0 - 3.0 Includes: PROPHYLAXIS forvenous thrombosis, systemic embolization; TREATMENT for venous thrombosis and/or pulmonary embolus.HIGH RISK: Target INR is 2.5-3.5 for patients with mechanical heart valves.
--- OUTSIDE RECORDS SUMMARY | 2019-04-05 01:31 | XMS REPORT | Clinical Summary ---
:1940 [facility] Address [address] [place] [address] Care Team Providers Name Role Phone Felecia Montgomeryey Primary Care Provider Allergies Active Allergy Reactions Severity Noted Date Comments Perindopril Swelling High 01/25/2017 Throat swelled up. Medications Medication Sig Dispensed Refills Start Date End Date Status metoprolol (LOPRESSOR) Take 100 mg by 0 Active 100 MG mouth daily. tabletIndications: hypertension losartan (COZAAR) 100 Take 100 mg by 0 Active MG tabletIndications: mouth daily. hypertension levothyroxine Take 100 mcg by 0 Active (SYNTHROID, LEVOTHROID) mouth Every 100 MCG morning on an tabletIndications: empty stomach. hypothyroidism rosuvastatin (CRESTOR) Take 10 mg by 0 Active 10 MG mouth daily. tabletIndications: hyperlipidemia citalopram (CELEXA) 40 Take 40 mg by 0 Active MG tabletIndications: mouth daily. Anxiety with Depression clopidogrel (PLAVIX) 75 Take 75 mg by 0 Active mg tablet mouth daily. aspirin 81 MG EC tablet Take 81 mg by 0 Active mouth daily. furosemide (LASIX) 20 Take 20 mg by 0 Active MG tablet mouth daily. anastrozole (ARIMIDEX) Take 1 mg by 0 Active 1 mg tablet mouth daily. alendronate (FOSAMAX) Take 70 mg by 0 Active 70 MG mouth every 7 tabletIndications: days Take in the Post-Menopausal morning with a Osteoporosis full glass of water, on an empty stomach, and do not take anything else by mouth or lie down for the next 30 min. . pregabalin (LYRICA) 50 Take 50 mg by 0 Active MG capsule mouth daily with dinner. traMADol (ULTRAM) 50 mg Take 50 mg by 0 Active tabletIndications: Pain mouth as needed for Pain. zolpidem (AMBIEN) 10 mg Take 10 mg by 0 Active tablet mouth every night as needed for Insomnia. cloNIDine HCl Take 0.1 mg by 0 Active (CATAPRES) 0.1 MG mouth as needed. tablet Active Problems Problem Noted Date Syncope and [...] Not on file Results Not on fileafter 04/04/2018 Insurance Payer Benefit Plan / Subscriber ID Type Phone Address Group [employer] - MEDICARE A[employer] MEDICARE O xxxxxxxx [phone] [address] [place] [place] [address] Advance Directives For more information, please contact:[address] [phone] Code Status Date Activated Date Inactivated Comments Full Code 01/25/2017 1:46 AM 01/26/2017 1:49 PM This code status was determined by: Patient
[2019-04-05] MEDS ORDERED: LIDOCAINE 1% W/EPI 1:100,000 MDV 50 ML VIAL ONE (01:49)
[2019-04-05 02:41] LABS: Protime INR 0.87
[2019-04-05 02:42] LABS: Absolute Lymphocytes (CBC) 2.4 K/uL (0.7-4.9); Basophils % 0.7 % (0-1.3); Eosinophils % 1.4 % (0-4.4); Hematocrit 30.9 % (36.0-45.0); MPV 7.9 fL (7.6-11.3); Monocytes % 11.4 % (3.3-12.3); RBC Red Blood Cell Count 3.78 M/uL (3.86-4.86)
[2019-04-05] MEDS ORDERED: CEFAZOLIN SODIUM 1 GM/VIAL ONE (02:43)
[2019-04-05] MEDS ORDERED: NA CHLORIDE 0.9% 50 ML IV ONE (02:44)
[2019-04-05] MEDS ORDERED: NA CHLORIDE 0.9% 1,000 ML ONE (02:44)
[2019-04-05 02:54] LABS: ALT/SGPT 18 U/L (12-78); AST/SGOT 19 U/L (15-37); Albumin 3.7 g/dL (3.4-5.0); Alkaline Phosphatase 72 U/L (45-117); BUN Blood Urea Nitrogen 27 mg/dL (7-18); Bicarbonate 29 mmol/L (21-32); Bilirubin Direct 0.1 mg/dL (0-0.2); Bilirubin Total 0.2 mg/dL (0.2-1.0); Glucose Level 71 mg/dL (74-106); Magnesium 2.3 mg/dL (1.8-2.4); NT PRO-BNP 1054 pg/mL (<450); Potassium 4.4 mmol/L (3.5-5.1); Protein, Total 6.9 g/dL (6.4-8.2); Sodium Level 141 mmol/L (136-145); Troponin (Emerg Dept Use Only) < 0.02 ng/mL (0.0-0.045)
--- NOTE | 2019-04-05 04:34 | EDPHYS ---
Physician Documentation [facility] Name: Michelle Benson Age: 79 yrs Sex: Female : 1940 Arrival Date: 04/05/2019 Time: 01:32 Bed 6 Private MD: ED Physician Quincy Cantor HPI: 04/05 01:56 This 79 yrs old Female presents to ER via EMS with complaints of Fall Injury. dani 01:56 Details of fall: The patient fell from an upright position, while walking. Onset: The dani symptoms/episode began/occurred just prior to arrival, this morning. Associated injuries: The patient sustained injury to the head, left arm, decreased range of motion, painful injury. Severity of symptoms: At their worst the symptoms were mild, in the emergency department the symptoms are unchanged. The patient has not experienced similar symptoms in the past. Historical: - Allergies: 02:01 Codeine; lp1 02:01 perindopril erbumine; lp1 - Home Meds: 02:01 levothyroxine 100 mcg tab 1 tab once daily [Active]; Crestor 10 mg Oral tab 1 tab once lp1 daily [Active]; citalopram 40 mg tab 1 tab once daily [Active]; metoprolol tartrate 12.5 mg Oral tab 1 tab 2 times per day [Active]; losartan 50 mg oral tab once daily [Active]; hydralazine 25 mg Oral tab as needed [Active]; clopidogrel 75 mg Oral tab 1 tab once daily [Active]; Lyrica 75 mg Oral 1 cap daily [Active]; spironolactone 50 mg Oral tab 1 tab 2 times per day [Active]; bupropion HCl 100 mg Oral tab 1 tab 2 times per day [Active]; Daliresp 500 mcg Oral tab 1 tab once daily [Active]; prednisone 5 mg oral tab once daily [Active]; ipratropium-albuterol 0.5 mg-3 mg(2.5 mg base)/3 mL Inhl nebu 4 times per day [Active]; aspirin 81 mg Oral TbEC 1 tab once daily [Active]; Brovana 15 mcg/2 mL inhalation nebu 2 mL 2 times per day [Active]; potassium chloride 20 mEq Oral TbER 1 tab once daily [Active]; pantoprazole 40 mg Oral TbEC 1 tab once daily [Active]; Ventolin HFA 90 mcg/actuation Nebulizer HFAA 2 puffs every 4 hours [Active]; tramadol 50 mg Oral tab 1 tab as needed [Active]; Spiriva Respimat 2.5 mcg/actuation inhalation mist 2 puffs once daily [Active]; Ambien 5 mg oral tab nightly [Active]; Oxygen \T\ 2L PRN and at night [Active]; - PMHx: 02:01 CAD; cancer- breast L side, throat, L ear; CHEMO; CHF; COPD; Depression; GERD; heart lp1 arrythmia unknown; 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 - Immunization history: Last tetanus immunization: unknown. - Family history:: not pertinent. - Ebola Screening: : No symptoms or risks identified at this time. ROS: 01:57 Constitutional: Negative for fever, chills, and weight loss, Eyes: Negative for injury, dani pain, redness, and discharge, ENT: Negative for injury, pain, and discharge, Neck: Negative for injury, pain, and swelling, Cardiovascular: Negative for chest pain, palpitations, and edema, Respiratory: Negative for shortness of breath, cough, wheezing, and pleuritic chest pain, Abdomen/GI: Negative for abdominal pain, nausea, vomiting, diarrhea, and constipation, Back: Negative for injury and pain, : Negative for injury, bleeding, discharge, and swelling, MS/Extremity: Negative for injury and deformity, Neuro: Negative for headache, weakness, numbness, tingling, and seizure, Psych: Negative for depression, anxiety, suicide ideation, homicidal ideation, and hallucinations, Allergy/Immunology: Negative for hives, rash, and allergies, Endocrine: Negative for neck swelling, polydipsia, polyuria, polyphagia, and marked weight changes, Hematologic/Lymphatic: Negative for swollen nodes, abnormal bleeding, and unusual bruising. 01:57 Skin: Positive for laceration(s), of the forehead. Exam: :57 Constitutional: This is a well developed, well nourished patient who is awake, alert, dani and in no acute distress. Eyes: Pupils equal round and reactive to light, extra-ocular motions intact. Lids and lashes normal. Conjunctiva and sclera are non-icteric and not injected. Cornea within normal limits. Periorbital areas with no swelling, redness, or edema. ENT: Nares patent. No nasal discharge, no septal abnormalities noted. Tympanic membranes are normal and external auditory canals are clear. Oropharynx with no redness, swelling, or masses, exudates, or evidence of obstruction, uvula midline. Mucous membranes moist. Neck: Trachea midline, no thyromegaly or masses palpated, and no cervical lymphadenopathy. Supple, full range of motion without nuchal rigidity, or vertebral point tenderness. No Meningismus. Chest/axilla: Normal chest wall appearance and motion. Nontender with no deformity. No lesions are appreciated. Cardiovascular: Regular rate and rhythm with a normal S1 and S2. No gallops, murmurs, or rubs. Normal PMI, no JVD. No pulse deficits. Respiratory: Lungs have equal breath sounds bilaterally, clear to auscultation and percussion. No rales, rhonchi or wheezes noted. No increased work of breathing, no retractions or nasal flaring. Abdomen/GI: Soft, non-tender, with normal bowel sounds. No distension or tympany. No guarding or rebound. No evidence of tenderness throughout. Back: No spinal tenderness. No costovertebral tenderness. Full range of motion. Skin: Warm, dry with normal turgor. Normal color with no rashes, no lesions, and no evidence of cellulitis. Neuro: Awake and alert, GCS 15, oriented to person, place, time, and situation. Cranial nerves II-XII grossly intact. Motor strength 5/5 in all extremities. Sensory grossly intact. Cerebellar exam normal. Normal gait. Psych: Awake, alert, with orientation to person, place and time. Behavior, mood, and affect are within normal limits. 01:57 Musculoskeletal/extremity: Circulation is intact in all extremities. Sensation intact. Compartment Syndrome exam of affected extremity: is normal. DVT Exam: No signs of deep vein thrombosis. no pain, no swelling, no tenderness, negative Homans' sign noted on exam, no appreciated bluish discoloration, no erythema, no increased warmth. Vital Signs: 01:30 BP 165 / 84; Pulse 69; Resp 18; Temp 98.1(O); Pulse Ox 96% on R/A; Weight 68.04 kg; lp1 Height 5 ft. 10 in. (177.80 cm); Pain 9/10; 02:40 BP 180 / 68; Pulse 72; Resp 18 S; Pulse Ox 95% on R/A; jd3 04:10 BP 168 / 55; Pulse 73; Resp 17 S; Pulse Ox 100% on R/A; jd3 05:21 BP 172 / 67; Pulse 71; Resp 19 S; Pulse Ox 100% on R/A; Pain 3/10; jd3 01:30 Body Mass Index 21.52 (68.04 kg, 177.80 cm) lp1 Eliud Coma Score: 01:30 Eye Response: spontaneous(4). Verbal Response: oriented(5). Motor Response: obeys lp1 commands(6). Total: 15. 02:40 Eye Response: spontaneous(4). Verbal Response: oriented(5). Motor Response: obeys jd3 commands(6). Total: 15. Trauma Score (Adult): 01:30 Eye Response: spontaneous(1); Verbal Response: oriented(1); Motor Response: obeys lp1 commands(2); Systolic BP: > 89 mm Hg(4); Respiratory Rate: 10 to 29 per min(4); [place] Score: 15; Trauma Score: 12 02:40 Eye Response: spontaneous(1); Verbal Response: oriented(1); Motor Response: obeys jd3 commands(2); Systolic BP: > 89 mm Hg(4); Respiratory Rate: 10 to 29 per min(4); Eliud Score: 15; Trauma Score: 12 Laceration: 02:00 Wound Repair of 2.5cm ( 1.0in ) subcutaneous laceration to forehead. Irregularly dani shaped.. Minimal bleeding noted.. Distal neuro/vascular/tendon intact. Anesthesia: Local anesthetic administered with 5 mls of 1% lidocaine w/ Epi. Wound prep: Moderate cleansing by me, Copious irrigation. Skin closed with 4 5-0 Prolene using interrupted sutures and sterile technique. Dressed with Neosporin. Patient tolerated well. MDM: 01:52 Patient medically screened. [facility] 01:57 Data reviewed: vital signs, nurses notes, lab test result(s), EKG, radiologic studies, [facility] CT scan, plain films. 04/05 01:56 Order name: Basic Metabolic Panel [facility] 04/05 01:56 Order name: CBC with Diff; Complete Time: 04:29 [facility] 04/05 01:56 Order name: LFT's; Complete Time: 04:29 [facility] 04/05 01:56 Order name: Magnesium; Complete Time: 04:29 [facility] 04/05 01:56 Order name: NT PRO-BNP; Complete Time: 04:29 [facility] 04/05 01:56 Order name: PT-INR; Complete Time: 04:29 [facility] 04/05 01:56 Order name: Troponin (emerg Dept Use Only); Complete Time: 04:29 [facility] 04/05 01:56 Order name: XRAY Chest (1 view) [facility] 04/05 01:56 Order name: CT Head C Spine [facility] 04/05 02:02 Order name: Basic Metabolic Panel; Complete Time: 04:29 [facility] 04/05 04:41 Order name: Glucose, Ancillary Testing [facility] 04/05 01:56 Order name: EKG; Complete Time: 02:05 [facility] 04/05 01:56 Order name: Cardiac monitoring; Complete Time: 02:20 [facility] 04/05 01:56 Order name: EKG - Nurse/Tech; Complete Time: 02:20 [facility] 04/05 01:56 Order name: IV Saline Lock; Complete Time: 02:20 [facility] 04/05 01:56 Order name: Labs collected and sent; Complete Time: 02:20 [facility] 04/05 01:56 Order name: O2 Per Protocol; Complete Time: 01:58 04/05 01:56 Order name: O2 Sat Monitoring; Complete Time: 01:58 [facility] 04/05 01:56 Order name: Prolene, Sutures; Complete Time: 02:06 04/05 01:56 Order name: Dressing - Wound; Complete Time: 02:06 [facility] 04/05 01:56 Order name: Gloves, Sterile; Complete Time: 02:06 [facility] 04/05 01:56 Order name: Setup Suture Tray; Complete Time: 02:06 [facility] 04/05 01:56 Order name: Urine Dipstick-Ancillary (obtain specimen); Complete Time: 02:19 [facility] 04/05 01:56 Order name: Ice pack; Complete Time: 02:54 [facility] 04/05 04:32 Order name: Blood Glucose Level; Complete Time: 04:40 [facility] 04/05 04:32 Order name: PO challenge: juice; Complete Time: 05:17 [facility] 04/05 04:53 Order name: Kaylin; Complete Time: 05:17 [facility] Administered Medications: 01:53 Drug: Lidocaine-Epinephrine -1%: (1:100,000) 1 vials Volume: 20 ml; Route: Infiltration;lp1 02:50 Follow up: Response: No adverse reaction jd3 02:06 CANCELLED (Duplicate Order): Lidocaine-Epinephrine -1%: (1:100,000) 5 ml 20 ml lp1 Infiltration once; to bedside 02:20 Drug: Neosporin Ointment 1 application Route: Topical; Site: affected area; jd3 05:19 Follow up: Response: No adverse reaction jd3 02:47 Drug: NS 0.9% 1000 ml Route: IV; Rate: 125 ml/hr; Site: right hand; jd3 05:18 Follow up: Response: No adverse reaction; IV Status: Order to discontinue infusion jd3 02:47 Drug: ceFAZolin 1 grams Volume: 50 ml; Route: IVPB; Infused Over: 30 mins; Site: right jd3 hand; 05:17 Follow up: Response: No adverse reaction; IV Status: Completed infusion; IV Intake: jd3 100ml Disposition: 04/05/19 04:33 Discharged to Home. Impression: Fall due to bumping against object, Laceration without foreign body of other part of head, Hypoglycemia, unspecified, Anemia, unspecified. - Condition is Fair. - Discharge Instructions: Head Injury, Adult, Facial Laceration, Skin Tear Care, Facial Laceration, Jdmb-pc-Rrfe, Skin Tear Care, Mwxu-bp-Piyt, Head Injury, Adult, Jvnl-dn-Brpy. - Prescriptions for Keflex 500 mg Oral Capsule - take 1 capsule by ORAL route every 6 hours for 10 days; 40 capsule. - Medication Reconciliation Form, Thank You Letter, Antibiotic Education, Prescription Opioid Use form. - Follow up: Private Physician; When: 1 - 2 days; Reason: Recheck today's complaints, Continuance of care, Re-evaluation by your physician. - Problem is new. - Symptoms have improved. Signatures: Dispatcher [employer] EDME Quincy Cantor MD MD cha Pena, Laura RN RN lp1 Nito Angel RN RN jd3 Corrections: (The following items were deleted from the chart) 02:06 01:56 Lidocaine-Epinephrine -1%: (1:100,000) 5 ml 20 ml Infiltration once; to bedside lp1 ordered. [facility] 05:25 04:33 04/05/2019 04:33 Discharged to Home. Impression: Fall due to bumping against jd3 object; Laceration without foreign body of other part of head; Hypoglycemia, unspecified; Anemia, unspecified. Condition is Fair. Discharge Instructions: Facial Laceration, Skin Tear Care, Facial Laceration, Yzlc-vg-Gvhn, Skin Tear Care, Wbxt-et-Nvqv, Head Injury, Adult, Head Injury, Adult, Mvcm-ka-Kaaw. Prescriptions for Keflex 500 mg Oral Capsule - take 1 capsule by ORAL route every 6 hours for 10 days; 40 capsule. and Forms are Medication Reconciliation Form, Thank You Letter, Antibiotic Education, Prescription Opioid Use. Follow up: Private Physician; When: 1 - 2 days; Reason: Recheck today's complaints, Continuance of care, Re-evaluation by your physician. Problem is new. Symptoms have improved. [facility]
--- NOTE | 2019-04-05 04:34 | ER ---
Nurse's Notes [facility] Name: Michelle Benson Age: 79 yrs Sex: Female : 1940 Arrival Date: 04/05/2019 Time: 01:32 Bed 6 Private MD: Diagnosis: Fall due to bumping against object;Laceration without foreign body of other part of head;Hypoglycemia, unspecified;Anemia, unspecified Presentation: 04/05 01:30 Presenting complaint: EMS states: Called for patient fall in bathroom; Patient states lp1 not remembering walking to the bathroom or how she fell; skin tear to left upper arm noted, laceration to left eyebrow, unknown LOC, complaint of headache. Care prior to arrival: Bleeding of injury controlled. Injury dressed. Mechanism of Injury: Fall from standing position. Trauma event details: Injury occurred in the [facility], Injury occurred: at home. Injury occurred: April 05, 2019 Injury occurred at: 01:00. 01:30 Acuity: RHIANNON 2 lp1 01:30 Method Of Arrival: EMS: [facility] lp1 02:04 Transition of care: patient was not received from another setting of care. Onset of lp1 symptoms was April 05, 2019 at 01:00. Risk Assessment: Do you want to hurt yourself or someone else? Patient reports no desire to harm self or others. Initial Sepsis Screen: Does the patient meet any 2 criteria? No. Patient's initial sepsis screen is negative. Does the patient have a suspected source of infection? No. Patient's initial sepsis screen is negative. Trauma Activation: Alert Physician: ED Physician; Name: Dr. Cantor; Notified At: 01:22; Arrived At: 01:22 Physician: General Surgeon; Name: N/A; Notified At: 01:22; Arrived At: Physician: Radiology; Name: Virginie; Notified At: 01:22; Arrived At: 01:22 Physician: Respiratory; Name: N/A; Notified At: 01:22; Arrived At: Physician: Lab; Name: N/A; Notified At: 01:22; Arrived At: Historical: - Allergies: 02:01 Codeine; lp1 02:01 perindopril erbumine; lp1 - Home Meds: 02:01 levothyroxine 100 mcg tab 1 tab once daily [Active]; Crestor 10 mg Oral tab 1 tab once lp1 daily [Active]; citalopram 40 mg tab 1 tab once daily [Active]; metoprolol tartrate 12.5 mg Oral tab 1 tab 2 times per day [Active]; losartan 50 mg oral tab once daily [Active]; hydralazine 25 mg Oral tab as needed [Active]; clopidogrel 75 mg Oral tab 1 tab once daily [Active]; Lyrica 75 mg Oral 1 cap daily [Active]; spironolactone 50 mg Oral tab 1 tab 2 times per day [Active]; bupropion HCl 100 mg Oral tab 1 tab 2 times per day [Active]; Daliresp 500 mcg Oral tab 1 tab once daily [Active]; prednisone 5 mg oral tab once daily [Active]; ipratropium-albuterol 0.5 mg-3 mg(2.5 mg base)/3 mL Inhl nebu 4 times per day [Active]; aspirin 81 mg Oral TbEC 1 tab once daily [Active]; Brovana 15 mcg/2 mL inhalation nebu 2 mL 2 times per day [Active]; potassium chloride 20 mEq Oral TbER 1 tab once daily [Active]; pantoprazole 40 mg Oral TbEC 1 tab once daily [Active]; Ventolin HFA 90 mcg/actuation Nebulizer HFAA 2 puffs every 4 hours [Active]; tramadol 50 mg Oral tab 1 tab as needed [Active]; Spiriva Respimat 2.5 mcg/actuation inhalation mist 2 puffs once daily [Active]; Ambien 5 mg oral tab nightly [Active]; Oxygen \T\ 2L PRN and at night [Active]; - PMHx: 02:01 CAD; cancer- breast L side, throat, L ear; CHEMO; CHF; COPD; Depression; GERD; heart lp1 arrythmia unknown; 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 - Immunization history: Last tetanus immunization: unknown. - Family history:: not pertinent. - Ebola Screening: : No symptoms or risks identified at this time. Screenin:04 Abuse screen: Denies threats or abuse. Denies injuries from another. Nutritional lp1 screening: No deficits noted. Tuberculosis screening: No symptoms or risk factors identified. Fall Risk Total Gomez Fall Scale indicates High Risk Score (45 or more points). Fall prevention measures have been instituted. Side Rails Up X 2 Family Present and informed to notify staff if the need to leave the bedside As available patient and family educated on Fall Prevention Program and Strategies. Primary Survey: 01:45 NO uncontrolled hemorrhage observed. A: The patient is alert. Airway: patent, No lp1 supplemental oxygen in use on arrival. Breathing/Chest: Respiratory pattern: regular, Respiratory effort: spontaneous, unlabored. Circulation: Skin color: pink, Skin temperature: warm, dry. Disability Alert. Exposure/Environment: All clothing and personal items were removed. Obvious injury(ies) are noted at this time: Skin tear to left upper arm; Laceration to left eyebrow. 02:45 Reassessment Airway Airway Patent Oxygen No O2 Oral cavity Clear Breathing/Chest jd3 Respiratory pattern Regular Respiratory effort Spontaneous Unlabored Chest inspection Symmetrical Circulation Heart rhythm Sinus rhythm Heart tones Present Pulses Palpable Color [place] Disability Alert. Secondary Survey: 02:03 HEENT: Face Other Laceration to left eyebrow. Gastrointestinal: No deficits noted. : lp1 No deficits noted. Musculoskeletal: Range of motion: intact in all extremities. Assessment: 01:45 General: Appears in no apparent distress. uncomfortable, Behavior is calm, cooperative, jd3 appropriate for age. Pain: Complains of pain in head and left arm Pain does not radiate. Quality of pain is described as aching. Neuro: Level of Consciousness is awake, alert, obeys commands, Oriented to person, place, time, situation, Reports a syncopal episode Denies blurred vision dizziness. Cardiovascular: Capillary refill < 3 seconds Patient's skin is warm and dry. Rhythm is regular. Respiratory: Airway is patent Respiratory effort is even, unlabored, Respiratory pattern is regular, symmetrical, Denies shortness of breath. GI: No signs and/or symptoms were reported involving the gastrointestinal system. : No signs and/or symptoms were reported regarding the genitourinary system. EENT: swelling noted around left eye. pt reports pain upon opening left eye.. Derm: Skin is intact, Skin is dry, Skin is normal, Skin temperature is warm Wound noted middle aspect of left eyebrow Wound is skin tear noted with small amount of bleeding. Bruising that is dark purple, on middle aspect of left eyebrow. Musculoskeletal: Circulation, motion, and sensation intact. Range of motion: intact in all extremities. 02:39 Reassessment: Patient appears in no apparent distress at this time. Patient and/or jd3 family updated on plan of care and expected duration. Pain level reassessed. Patient is alert, oriented x 3, equal unlabored respirations, skin warm/dry/pink. wounds dressed. family at bedside. pt with even and unlabored respirations, no distress noted at this time. awaiting results. 04:11 Reassessment: Patient appears in no apparent distress at this time. Patient and/or jd3 family updated on plan of care and expected duration. Pain level reassessed. Patient is alert, oriented x 3, equal unlabored respirations, skin warm/dry/pink. awaiting disposition. 05:25 Reassessment: Patient appears in no apparent distress at this time. Patient and/or jd3 family updated on plan of care and expected duration. Pain level reassessed. Patient is alert, oriented x 3, equal unlabored respirations, skin warm/dry/pink. Vital Signs: 01:30 BP 165 / 84; Pulse 69; Resp 18; Temp 98.1(O); Pulse Ox 96% on R/A; Weight 68.04 kg; lp1 Height 5 ft. 10 in. (177.80 cm); Pain 9/10; 02:40 BP 180 / 68; Pulse 72; Resp 18 S; Pulse Ox 95% on R/A; jd3 04:10 BP 168 / 55; Pulse 73; Resp 17 S; Pulse Ox 100% on R/A; jd3 05:21 BP 172 / 67; Pulse 71; Resp 19 S; Pulse Ox 100% on R/A; Pain 3/10; jd3 01:30 Body Mass Index 21.52 (68.04 kg, 177.80 cm) lp1 Eliud Coma Score: 01:30 Eye Response: spontaneous(4). Verbal Response: oriented(5). Motor Response: obeys lp1 commands(6). Total: 15. 02:40 Eye Response: spontaneous(4). Verbal Response: oriented(5). Motor Response: obeys jd3 commands(6). Total: 15. Trauma Score (Adult): 01:30 Eye Response: spontaneous(1); Verbal Response: oriented(1); Motor Response: obeys lp1 commands(2); Systolic BP: > 89 mm Hg(4); Respiratory Rate: 10 to 29 per min(4); [place] Score: 15; Trauma Score: 12 02:40 Eye Response: spontaneous(1); Verbal Response: oriented(1); Motor Response: obeys jd3 commands(2); Systolic BP: > 89 mm Hg(4); Respiratory Rate: 10 to 29 per min(4); Eliud Score: 15; Trauma Score: 12 ED Course: 01:30 Patient maintains SpO2 saturation greater than 95% on room air. lp1 01:32 Patient arrived in ED. ds1 01:45 Thermoregulation: warm blanket given to patient. lp1 01:45 Patient has correct armband on for positive identification. Bed in low position. Call lp1 light in reach. Side rails up X2. Patient maintains SpO2 saturation greater than 95% on room air. 01:51 Triage completed. lp1 01:52 Quincy Cantor MD is Attending Physician. dani 01:53 Assist provider with laceration repair on middle aspect of left eyebrow that was lp1 between 2.6 to 7.5 cm using sutures. Set up tray. Performed by Quincy Cantor MD. 02:05 Arm band placed on right wrist. lp1 02:15 Inserted saline lock: 24 gauge in right hand, using aseptic technique. Blood collected. jd3 02:23 XRAY Chest (1 view) In Process Unspecified. EDMS 02:25 Nito Angel RN is Primary Nurse. jd3 02:48 CT Head C Spine In Process Unspecified. EDMS 02:55 Ice pack to injury. jd3 05:24 IV discontinued, intact, bleeding controlled, No redness/swelling at site. Pressure jd3 dressing applied. Administered Medications: 01:53 Drug: Lidocaine-Epinephrine -1%: (1:100,000) 1 vials Volume: 20 ml; Route: Infiltration;lp1 02:50 Follow up: Response: No adverse reaction jd3 02:06 CANCELLED (Duplicate Order): Lidocaine-Epinephrine -1%: (1:100,000) 5 ml 20 ml lp1 Infiltration once; to bedside 02:20 Drug: Neosporin Ointment 1 application Route: Topical; Site: affected area; jd3 05:19 Follow up: Response: No adverse reaction jd3 02:47 Drug: NS 0.9% 1000 ml Route: IV; Rate: 125 ml/hr; Site: right hand; jd3 05:18 Follow up: Response: No adverse reaction; IV Status: Order to discontinue infusion jd3 02:47 Drug: ceFAZolin 1 grams Volume: 50 ml; Route: IVPB; Infused Over: 30 mins; Site: right jd3 hand; 05:17 Follow up: Response: No adverse reaction; IV Status: Completed infusion; IV Intake: jd3 100ml Intake: 05:17 IV: 100ml; Total: 100ml. jd3 05:24 PO: 0ml; Total: 100ml. jd3 Output: 05:24 Urine: 0ml; Total: 0ml. jd3 Outcome: 04:33 Discharge ordered by MD. louise 05:23 Discharged to home via wheelchair, with family. jd3 05:23 Condition: stable 05:23 Discharge instructions given to patient, family, Instructed on discharge instructions, follow up and referral plans. medication usage, Demonstrated understanding of instructions, follow-up care, medications, Prescriptions given X 1. 05:24 Patient's length of stay in the Emergency Department was greater than 2 hours. due to jd3 waiting on results.Patient's length of stay extended due to 05:25 Patient left the ED. jd3 Signatures: Dispatcher [employer] EDWI Quincy Cantor MD MD cha Sanford, Demi ds1 Latonia Sykes RN RN lp1 Nito Angel RN RN jd3 Corrections: (The following items were deleted from the chart) 05:23 05:22 Reassessment Airway Airway Patent Oxygen No O2 Oral cavity Clear Breathing/Chest jd3 Respiratory pattern Regular Respiratory effort Spontaneous Unlabored Chest inspection Symmetrical Circulation Heart rhythm Sinus rhythm Heart tones Present Pulses Palpable Color [place] Disability Alert jd3
[2019-04-05 05:36] VITALS: TEMP 98.1
[2019-04-05 05:38] VITALS: O2SAT 100
[2019-04-05 05:40] VITALS: BP 172/67
--- NOTE | 2019-04-05 09:13 | RAD REPORT ---
EXAM DESCRIPTION: RAD - Chest Single View - 04/05/2019 2:23 am CLINICAL HISTORY: Fall, chest pain, cough, history of left breast cancer head and neck cancer, CHF, COPD COMPARISON: September 2018 TECHNIQUE: AP portable chest image was obtained 0221 hour . FINDINGS: Is no focal consolidation, failure or volume overload finding. Interstitial markings are p rominent in the mid and lower right lung field, increased over the prior study. Heart size is similar to comparison, magnified by portable technique. No vascular engorgement. No measurable pleural effus ion and no pneumothorax. No acute bony abnormality seen. No acute aortic findings suspected. IMPRESSION: Suspected right-side interstitial pneumonia superimposed on baseline COPD.
--- NOTE | 2019-04-05 10:39 | RAD REPORT ---
EXAM DESCRIPTION: CT - Head C Spine Mpr Wo Con - 04/05/2019 3:09 am CLINICAL HISTORY: Pain. COMPARISON: CT head without contrast 06/19/2018. TECHNIQUE: Axial [address] imaging of the brain. Axial [address] imaging of the cervical spine. Reformatted coronal and sagittal images of th e head and cervical spine obtained. This examination was performed according to our departmental dose optimization program, which include s automated exposure control, adjustment of the mA and/or kV according to patient size and/or use of iterative reconstruction technique. FINDINGS: CT head: There is mild prominence of the ventricles and extra-axial fluid spaces secondary to cortical volume loss. There is no intraparenchymal or extra-axial bleed. No mass lesion or midline shift. There are s enescent bilateral basal ganglia calcifications. Mild decreased scattered white matter hypoattenuatio n due to chronic microvascular ischemic change. The cerebellum and vermis appear normal. Fourth ventricle is midline. Prepontine cisterns are not eff aced. Normal sella contents. The facial bones appear intact as visualized. Intact skull base. Intact calvarium. Internal carotid artery calcifications are noted through the cavernous segments. There is left frontal scalp edema. No subcutaneous emphysema. CT cervical spine: There is severe loss of the disc space height from C3 to C7 with bulky hypertrophic endplate osteophy mino. There is multilevel uncovertebral joint hypertrophy with moderate to severe bilateral foraminal stenosis from C3 to C7. No fracture within the posterior elements. There is 2 mm degenerative intrasu bstance fixation of C2 and C3. Craniocervical and cervicothoracic junction alignment is preserved. No prevertebral edema. No fracture within the odontoid process or lateral masses. Mild dextroconvex cer vical curve noted. Significant bilateral carotid artery atherosclerosis. There is a right internal carotid artery stent. Parapharyngeal soft tissues and mucosal spaces are unremarkable. There is asymmetric enlargement of t he right jugular vein. Dystrophic left thyroid calcified nodule. IMPRESSION: 1. Left frontal scalp edema consistent with a small hematoma. No intracranial bleed or s kull fracture. 2. Mild to moderate senescent brain changes. No intracranial acute finding. 3. Significant cervical spondylosis as detailed above. Multilevel degenerative foraminal stenosis. No acute fracture or traumatic subluxation. 4. Significant vascular disease. Right internal carotid artery stent. Electronically signed by: Eunice Souza DO 04/05/2019 3:03 AM CDT Due to temporary technical issues with the PACS/Fluency reporting system, reports are being signed by the in house radiologist as a courtesy to ensure prompt reporting. The interpreting radiologist is f ully responsible for the content of the report.
--- NOTE | 2019-04-05 14:49 | EKG ---
Test Date: 2019-04-05 Test Time: 02:14:15 Weighing Station Operator: LISS MEASUREMENT RESULTS: Intervals: Rate: 69 NM: 136 QRSD: 84 QT: 430 QTc: 460 [place]: P: 65 NM: 136 QRS: 57 T: 75 INTERPRETIVE STATEMENTS: Normal sinus rhythm Normal ECG Compared to ECG 09/06/2018 09:56:58 No significant changes Electronically Signed On 04-05-19 14:47:19 CDT by Randall Urias
== END 2019-04-05 05:25 | disposition home or self-care (01) ==
LOC: ER 01:25
PROC: 0JQ10ZZ Repair Face Subcutaneous Tissue and Fascia, Open Approach (ICD-10-PCS; principal; 2019-04-05)
DX: S01.81XA Laceration without foreign body of other part of head, initial encounter (principal); W01.0XXA Fall on same level from slipping, tripping and stumbling without subsequent striking against object, initial encounter; Y93.01 Activity, walking, marching and hiking; D64.9 Anemia, unspecified; E16.2 Hypoglycemia, unspecified; C50.912 Malignant neoplasm of unspecified site of left female breast; C14.0 Malignant neoplasm of pharynx, unspecified; C44.209 Unspecified malignant neoplasm of skin of left ear and external auricular canal; I25.10 Atherosclerotic heart disease of native coronary artery without angina pectoris; I50.9 Heart failure, unspecified; J44.9 Chronic obstructive pulmonary disease, unspecified; F32.9 Major depressive disorder, single episode, unspecified; E78.00 Pure hypercholesterolemia, unspecified; E03.9 Hypothyroidism, unspecified; F17.210 Nicotine dependence, cigarettes, uncomplicated; Z79.82 Long term (current) use of aspirin
CPT/HCPCS: 93005; 85025; 80048; 36415; 83735; 85610; 82962; 80076; 84484; 83880; 70450; 72125; 71045; 12011; J7030; J0690; 96365; 96366; 99285

== ENCOUNTER 2020-05-15 05:01 | Inpatient (IN) | payer OTHER ==
--- OUTSIDE RECORDS SUMMARY | 2020-05-15 05:05 | XMS REPORT | Clinical Summary ---
:1940 Author Organization [facility] Address [address] [place] [address] Care Team Providers Name Role Phone Yunior Montgomery MD Primary Care Provider Allergies Active Allergy Reactions Severity Noted Date Comments Perindopril Swelling High 01/25/2017 Throat swelled up. Medications Medication Sig Dispensed Refills Start Date End Date Status metoprolol (LOPRESSOR) Take 100 mg by 0 Active 100 MG mouth daily. tabletIndications: high blood pressure losartan (COZAAR) 100 Take 100 mg by 0 Active MG tabletIndications: mouth daily. high blood pressure levothyroxine Take 100 mcg by 0 Active (SYNTHROID, LEVOTHROID) mouth Every 100 MCG morning on an tabletIndications: a empty stomach. condition with low thyroid hormone levels rosuvastatin (CRESTOR) Take 10 mg by 0 Active 10 MG mouth daily. tabletIndications: excessive fat in the blood citalopram (CELEXA) 40 Take 40 mg by 0 Active MG tabletIndications: mouth daily. anxiousness associated with depression clopidogrel (PLAVIX) 75 Take 75 mg by [...] every 7 tabletIndications: days Take in the decreased bone mass morning with a following menopause full glass of water, on an empty stomach, and do not take anything else by mouth or lie down for the next 30 min. . pregabalin (LYRICA) 50 Take 50 mg by 0 Active MG capsule mouth daily with dinner. traMADol (ULTRAM) 50 mg Take 50 mg by 0 Active tabletIndications: pain mouth as needed for Pain. zolpidem (AMBIEN) 10 mg Take 10 mg by 0 Active tablet mouth every night as needed for Insomnia. cloNIDine HCl Take 0.1 mg by 0 A ctive (CATAPRES) 0.1 MG mouth as needed. tablet [...] Not on file Results Not on fileafter 05/15/2019 Insurance Payer Benefit Plan / Subscriber ID Type Phone Address Group [employer] - MEDICARE AET MEDICARE O xxxxxxxx [address] [place] [address] Advance Directives For more information, please contact:[address] [phone] Code Status Date Activated Date Inactivated Comments Full Code 01/25/2017 1:46 AM 01/26/2017 1:49 PM This code status was determined by: Patient
--- OUTSIDE RECORDS SUMMARY | 2020-05-15 05:05 | XMS REPORT | Clinical Summary ---
:1940 Author Organization [facility] Address [address] [place] [address] Care Team Providers Name Role Phone MD Ulises Primary Care Provider Allergies Active Allergy Reactions Severity Noted Date Comments Perindopril Erbumine Anaphylaxis High 02/03/2019 Amoxicillin-Pot Clavulanate 01/19/2019 Codeine 01/10/2018 Other reaction( s): Unknown Perindopril Swelling High 01/25/2017 Throat swelled up. Medications Medication Sig Dispensed Refills Start Date End Date Status levothyroxine Take 100 mcg by 0 07/25/2016 Active (SYNTHROID, LEVOTHROID) mouth daily. 100 MCG tablet predniSONE (DELTASONE) Take 5 mg by 0 07/30/2016 Active 10 MG tablet mouth daily. traMADol (ULTRAM) 50 mg Take 50 mg by 0 07/25/2016 Active tablet mouth every 8 (eight) hours as needed. rosuvastatin (CRESTOR) Take 10 mg by 0 Active 10 MG tablet mouth daily. roflumilast (DALIRESP) Take 500 mcg by 0 Active 500 mcg tablet mouth daily. zolpidem (AMBIEN) 10 mg Take 5 mg by 0 Active tablet mouth nightly as needed for sleep. hydrALAZINE Take 1 tablet 90 tablet 3 09/16/2017 Act carlos (APRESOLINE) 25 MG (25 mg total) by tablet mouth daily as needed (sytolic bp >160). LYRICA 75 mg capsule Take 75 mg by 0 04/19/2018 Active mouth daily. buPROPion SR Take 100 mg by 0 11/15/2018 A ctive (WELLBUTRIN SR) 100 MG mouth 2 (two) 12 hr tablet times a day. metoprolol tartrate Take 0.5 tablets 180 tablet 2 11/23/2018 Active (LOPRESSOR) 25 mg (12.5 mg total) tablet by mouth 2 (two) times a day. Additional Information Patient taking differently: 25 mg oral daily, Reported on 01/19/2019 9:48 AM spironolactone Take 50 mg by 0 12/18/2018 Active (ALDACTONE) 25 MG mouth 2 (two) tablet times a day. tiotropium bromide Inhale 2 puffs 0 Active (SPIRIVA RESPIMAT daily. INHL) aspirin (ECOTRIN) 81 Take 81 mg by 0 Active MG enteric coated mouth daily. tablet albuterol (PROAIR Inhale 2 puffs 0 Active HFA,PROVENTIL every 4 (four) HFA,VENTOLIN HFA) 90 hours as needed mcg/actuation for wheezing. inhaler losartan (COZAAR) 50 Take 50 mg by 0 Active MG tablet mouth daily. citalopram (CeleXA) Take 40 mg by 0 Active 40 MG tablet mouth daily. fluticasone-umeclidi Inhale. 1 puff 0 Active n-vilanter (Trelegy daily Ellipta) 100-62.5-25 mcg blister with device acetaminophen Take 650 mg by 0 A ctive (TYLENOL) 650 MG 8 mouth as needed hr tablet for mild pain. furosemide (LASIX) Take 20 mg by 0 Active 20 mg tablet mouth as needed. pantoprazole TAKE ONE TABLET BY 90 tablet 1 05/03/2020 Active (PROTONIX) 40 MG EC MOUTH DAILY tabletIndications: Chest pain, unspecified type clopidogreL (PLAVIX) TAKE ONE TABLET BY 90 tablet 0 05/03/2020 Active 75 mg tablet MOUTH DAILY arformoterol Take 15 mcg by 0 03/26/ Di scontinued (BROVANA) 15 mcg/2 nebulization 2 2019 (Discontinued by mL solution for (two) times a day. another clinician) nebulization losartan (COZAAR) Take 100 mg by 0 05/24/ Discontinued 100 MG tablet mouth daily. 2018 (Fo rmulary change) clopidogrel (PLAVIX) Take 75 mg by 0 12/09 / Discontinued 75 mg tablet mouth daily. 2019 nicotine (NICODERM Place 1 patch on 0 03/12 5/ Discontinued CQ) 7 mg/24 hr the skin daily. 2019 (Discontinued by another cl inician) pantoprazole TAKE ONE TABLET BY 90 tablet 2 03/15/2019 Discontinued (PROTONIX) 40 MG EC MOUTH DAILY 2018 (Formulary change) tabletIndications: Chest pain, unspecified type losartan (COZAAR) TAKE ONE TABLET BY 90 tablet 0 03/15/2019/ Discontinued 100 MG tablet MOUTH DAILY 2018 (For mulary change) clopidogrel (PLAVIX) TAKE ONE TABLET BY 59 tablet 0 03/15/201905/24/ Discontinued 75 mg MOUTH DAILY 2018 (Formula ry change) tabletIndications: Coronary artery disease involving [place] heart with angina pectoris, unspecified vessel or lesion type (HCC) losartan (COZAAR) TAKE ONE TABLET BY 90 tablet 0 03/18/2019/ Discontinued 100 MG tablet MOUTH DAILY 2018 (For mulary change) pantoprazole TAKE ONE TABLET BY 90 tablet 2 03/18/2019 Discontinued (PROTONIX) 40 MG EC MOUTH DAILY 2019 tabletIndications: Chest pain, unspecified type clopidogrel (PLAVIX) TAKE ONE TABLET BY 79 tablet 0 03/18/201905/24/ Discontinued 75 mg MOUTH DAILY 2018 (Formula ry change) tabletIndications: Coronary artery disease involving [place] heart with angina pectoris, unspecified vessel or lesion type (HCC) losartan (COZAAR) TAKE ONE TABLET BY 90 tablet 0 09/16/2019/ Discontinued 100 MG tablet MOUTH DAILY 2019 clopidogreL (PLAVIX) TAKE ONE TABLET BY 90 tablet 0 12/09/2019 Discontinued 75 mg tablet MOUTH DAILY 2019 losartan (COZAAR) TAKE ONE TABLET BY 90 tablet 0 12/12/2019 Discontinued 100 MG tablet MOUTH DAILY 2019 clopidogreL (PLAVIX) TAKE ONE TABLET BY 90 tablet 0 03/06/2020 Discontinued 75 mg tablet MOUTH DAILY 2019 losartan (COZAAR) TAKE ONE TABLET BY 90 tablet 0 03/12/2020 Discontinued (Dose 100 MG tablet MOUTH DAILY 2019 adju stment) Active Problems Problem Noted Date Bilateral carotid artery stenosis 03/29/2020 Last Assessment & Plan: Continue surveillance of right carotid a rtery stent with duplex ultrasound in 6 months. Continue aspirin, Plavix, hyper tension control, statin. Chest pain 05/25/2018 Essential hypertension 08/19/2016 PAD (peripheral artery disease) 08/19/2016 Last Assessment & Plan: Improved symptoms. Continue medical opti mization and anti-coagulation. Follow up in 6 months. CAD in [place] artery 08/19/2016 Bilateral carotid artery disease 08/19/2016 Encounters Date Type Specialty Care Team Description 05/03/2020 Refill Cardiology Jewel Kebede MD Med Refi ll 03/29/2020 Travel 03/28/2020 Telemedicine Cardiovascular Jacqueline Bernal al carotid artery MD Ty stenosis (Prima ry Dx) 03/28/2020 Orders Only Cardiovascular Maria Teresa Cabrera RN PAD (peripheral artery disease) (HCC) (Primary Dx) 03/28/2020 Telephone Cardiovascular Maria Teresa Cabrera RN 03/28/2020 Orders Only Cardiovascular Maria Teresa Cabrera RN Seven ateral carotid artery stenosis (Prima ry Dx) 03/26/2020 Abstract Cardiovascular Yuli Virgen MA 03/21/2020 Travel 03/15/2020 Orders Only Cardiovascular Maria Teresa Cabrera RN Seven ateral carotid artery stenosis (Prima ry Dx) 03/15/2020 Telephone Cardiovascular Maria Teresa Cabrera RN 03/14/2020 Travel 03/11/2020 Refill Cardiology Jewel Kebede MD Med Refi ll 03/04/2020 Refill Cardiology Jewel Kebede MD Med Refi ll 01/04/2020 Travel 01/02/2020 Orders Only Cardiovascular Maria Teresa Cabrera RN PAD (peripheral artery disease) ([facility]) (Primary Dx); Bilateral carot id artery stenosis 01/02/2020 Travel 01/02/2020 Telephone Cardiovascular Jacqueline Bernal MD 12/13/2019 Office Visit Cardiology Jewel Kebede MD PAD (per ipheral artery disease) ([facility]) (Primary Dx); Bilateral carot id artery occlusion; Essential hyper tension 12/12/2019 Refill Cardiology Jewel Kebede MD Med Refi ll 12/08/2019 Refill Cardiology Jewel Kebede MD Med Refi ll 09/15/2019 Refill Cardiology Jewel Kebede MD Med Refi ll 09/12/2019 Refill Cardiology Jewel Kebede MD Med Refi ll 06/01/2019 Office Visit Cardiovascular Jacqueline Bernal carotid artery stenosis (Primary Dx); MD Ty PAD (peripheral artery disease) ([facility]) 05/24/2019 Office Visit Cardiology Jewel Kebede MD PAD (per ipheral artery disease) ([facility]) (Primary Dx); Occlusion of le ft carotid artery after 05/15/2019 Family History Medical History Relation Name Comments Heart disease Brother Heart disease Father Cancer Mother Heart disease Paternal Grandfather Cancer Sister Cancer Sister Relation Name Status Comments Brother Alive Father Mother Paternal Grandfather Sister Sister Social History Tobacco Use Types Packs/Day Years Used Date Former Smoker Cigarettes 1 50 Quit: 01/11/20 19 Smokeless Tobacco: Never Used Alcohol Use Drinks/Week oz/Week Comments Yes ocasionally Sex Assigned at Date Recorded Not on file Job Start Date Occupation Industry Not on file Not on file Not on file Travel History Travel Start Travel End No recent travel history available. 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 Pulse 76 12/13/2019 1:09 PM BIOMETRICS TECHNICIAN Temperature 36.8 C (98.3 F) 06/01/2019 10:12 AM CDT Respiratory Rate - - Oxygen Saturation - - Inhaled Oxygen Concentration - - Weight 63.5 kg (140 lb) 03/21/2020 10:45 AM CDT Height 172.7 cm (5' 8") 03/21/2020 10:45 AM CDT Body Mass Index 21.29 03/21/2020 10:45 AM CDT Plan of Treatment Date Type Specialty Care Team Description 06/19/2020 Office Visit Cardiology Jewel Kebede MD [address] [place], [place] [address] [phone] 09/26/2020 Appointment Procedural Cardiology Jacqueline Bernal MD [address] [place], [place] [address] [phone] 09/26/2020 Appointment Procedural Cardiology Jacqueline Bernal MD [address] [place], [place] [address] [phone] 09/26/2020 Appointment Procedural Cardiology Jacqueline Bernal MD [address] [place], [place] [address] [phone] 09/26/2020 Office Visit Cardiovascular Jacqueline Bernal MD [address] [place], [place] [address] [phone] Health Maintenance Due Date Last Done Comments SHINGLES VACCINES (#1) 1991 65+ PNEUMOCOCCAL VACCINE (1 of 2 - PCV13) 2006 INFLUENZA VACCINE 05/12/2020 Implants Implanted Type Area Gas Distribution Supervisor Device Shelf Model / Identifier Expiration Serial / Date Lot Graft Vasclr Propaten Thn-Wl Strtch 40cm 8mm - [id number] - [id number] Vascular Right: W L GORE 07/25/2022 [id number] / Implanted: Qty: 1 on 02/03/2019 by Jacqueline Elaine MD at [facility] Graft N/A [id number] / [id number] Patch Vasclr Perph 2x9cm Vascu-Guard - [id number] Vascular N/A: N/A CASTAÑEDA 03/02/2023 [id number] / Implanted: 02/03/2019 at [facility] (Quantity not on file) Graft BIOSCIENCE / [id number] Procedures Procedure Name Priority Date/Time Associated Comments Diagnosis CT ANGIOGRAM NECK W Routine 03/21/2020 11:23 AM Bilateral villavicencio tid Results for this WO CONTRAST CDT artery stenosis procedure ar e in the results section. ESTIMATED GFR Routine 03/21/2020 10:49 AM Results for this CDT procedure are i n the results section. POC CREATININE Routine 03/21/2020 10:49 AM Result s for this CDT procedure are i n the results section. US DUPLEX ARTERIAL Routine 03/14/2020 3:10 PM PAD (peripheral Results for this LOWER EXTREMITY CDT artery disease) procedure are in BILATERAL ([facility]) the results section. US CAROTID DUPLEX Routine 03/14/2020 3:09 PM PAD (peripheral Results for this BILATERAL CDT artery disease) procedure ar e in ([facility]) the results Bilateral carotid section. artery stenosis US CAROTID DUPLEX Routine 06/01/2019 9:44 AM PAD (peripheral Results for this BILATERAL CDT artery disease) procedure ar e in ([facility]) the results Bilateral carotid section. artery stenosis US ANKLE BRACHIAL Routine 06/01/2019 9:10 AM PAD (peripheral Results for this INDEX CDT artery disease) procedure ar e in ([facility]) the results Bilateral carotid section. artery stenosis US DUPLEX ARTERIAL Routine 06/01/2019 9:10 AM PAD (peripheral Results for this LOWER EXTREMITY CDT artery disease) procedure are in BILATERAL ([facility]) the results Bilateral carotid section. artery stenosis after 05/15/2019 Results CTA Neck W Wo Contrast (03/21/2020 11:23 AM CDT) Specimen Narrative Performed At EXAMINATION: CT ANGIOGRAM NECK W WO CO NTRAST [facility] CLINICAL HISTORY: I65.23 Occlusion and stenosis of b ilateral carotid arteries, High grade carotid artery sten osis COMPARISON: None. TECHNIQUE: CT imaging was performed with iterative rec onstruction technique and/or automated exposure control to reduce radiation dose. Study was obtained during the arterial p hase of enhancement. IMPRESSION: 3-D reconstructions are processed off-li ne. Mild narrowing of the proximal right bra chiocephalic artery. Heavily calcified plaque of the distal right common ca rotid artery and proximal right cervical internal carotid artery status post stent placement. No significant narrowing proximal or distal to the stent. There is opacification of the stent. Thi s can be further evaluated with conventional ang iogram as indicated. Heavily calcified plaque of the left carotid bulb. The re is occlusion of the left cervical internal carotid arter y at the origin. Moderate severe narrowing of the origin of the left subclavian artery. Mild narrowing of the origin of the left vertebral artery. No hemodynamically significant narrowing of the aortic arch, common carotid arteries, right subclavian artery or right ext racranial vertebral artery. [id number] Procedure Note Hm Interface, Radiology Results Incoming - 03/21/2020 12:33 PM CDT EXAMINATION: CT ANGIOGRAM NECK W WO CONTRAST CLINICAL HISTORY: I65.23 Occlusion and stenosis of bilateral carotid arteries, High grade carotid artery stenosis COMPARISON: None. TECHNIQUE: CT imaging was performed with iterative reconstruction technique and/or automated exposure control to reduce radiation dose. Study was obtained during the arterial phase of enhancement. IMPRESSION: 3-D reconstructions are processed off-li ne. Mild narrowing of the proximal right bra chiocephalic artery. Heavily calcified plaque of the distal r ight common carotid artery and proximal right cervical internal carotid artery status post stent placement. No significant narrowing proximal or distal to the stent. There is opacification of the stent. This can be further evaluated with conventional ang iogram as indicated. Heavily calcified plaque of the left car otid bulb. There is occlusion of the left cervical internal carotid artery at the origin. Moderate severe narrowing of the origin of the left subclavian artery. Mild narrowing of the origin of the left vertebral artery. No hemodynamically significant narrowing of the aortic arch, common carotid arteries, right subclavian artery or right extracranial vertebral artery. [id number] Performing Organization Address [facility]/Zipcode Phone Number [address] [address] Estimated GFR (03/21/2020 10:49 AM CDT) Pathologist [facility] Estimated GFR 39 (A) mL/min/1.73 [facility] Comment: m2 HOSPITAL Catergory Units Interpretation G1 >=90 Normal or high G2 60-89 Mildly decreased G3a 45-59 Mildly to moderately decreas ed G3b 30-44 Moderately to severely decre ased G4 15-29 Severely decreased G5 <15 Kidney failure The eGFR was calculated using the Chronic Kidney Disea se Epidemiology Collaboration (CKD-EPI) equation. Interpretation is based on recommendations of the National Kidney Foundation-Kidney Disease Outcomes Bebo lity Initiative (NKF-KDOQI) published in 2014. Specimen Blood Performing Organization Address [facility] Phone Number [facility] DEPARTMENT OF PATHOLOGY AND [address] [place] [address] [phone] [address] POC creatinine (03/21/2020 10:49 AM CDT) Pathologist [facility] POC creatinine 1.3 (H) 0.5 - 0.9 [facility] Comment: mg/dl HOSPITAL Meter ID: [id number] Artist Color Separation ID: Ana Maria Parsons Specimen Blood - Forearm, right Performing Organization Address [facility]/Zipcode Phone Number [facility] DEPARTMENT OF PATHOLOGY AND [address] [place] [address] [phone] [address] [place] duplex arterial lower extremity (03/14/2020 3:10 PM CDT)Only the most recent of2 resultswithin the time period is included. Specimen Narrative Performed At [facility] EXAM: US DUPLEX ARTERIAL LOWER EXTREMITY BILATERAL HISTORY: I73.9 Peripheral vascular disease unspecifi ed, A25 s p (B) INFO SPECIALIST endarterectomy Revision fem-fem by pass 4 25 19 TECHNIQUE: Real-time as well as pulsed and color Doppl er evaluation of bilateral common femoral, femoral, popliteal, posterio r tibial, anterior tibial, and dorsalis pedis arteries are evaluated. The examination includes a full duplex Doppler scan of t he blood vessels (real-time P mode grayscale, Doppler spe ctral analysis, and Doppler color flow imaging). COMPARISON: CT abdomen pelvis with bilateral lower ext remity runoff from 12/10/2018 IMPRESSION: 1.Patent common femoral to common femoral bypass graft within the superficial soft tissues of the anterior/inferior abdo men. There is nonspecific ectasia of the right common femoral artery at the anastomosis with the graft measuring 1.9 cm. 2.Flow is seen within all evaluated arteries of the ri ght and left lower extremity on color Doppler. 3.Likely chronic stenosis within the left common femor al artery based on findings on prior CTA from 12/10/2018. 4.No significant stenosis is suggested within either t he right or left lower extremities. FINDINGS: Flow seen within all evaluated arteries on color Doppler. A patent common femoral to common femoral bypass graft is noted within the superficial soft tissues of the anterior/inferior pelvis. There is fusiform ectasia of the right common femoral artery at the anastomosis measuring 1.9 cm in diameter. Biphasic waveforms are seen within the right common fe moral, superficial femoral, popliteal, and dorsalis pedis arteries. Monop hasic waveforms are suggested within the anterior tibial and posterior tibial arteries, however, there is no evidence of tardus parvus waveform morphology. No significant elevation or gradient in peak systolic velocity is seen within the right lower extremity to suggest a focal area of stenosis. Biphasic waveforms are seen within the left superficia l femoral, popliteal, and dorsalis pedis arteries. Monophasic wav eforms are noted within the anterior tibial and posterior tibial arteri es without evidence of tardus parvus waveform morph ology. There is an elevation in peak systolic velocity noted within the common femoral artery measuring 244.7 cm/s, which may represe nt significant stenosis secondary to calcified atherosclerotic diseas e seen on prior CT from 12/10/2018. Otherwise, no elevation i n peak systolic velocity or gradient in systolic velocity se en within the left lower extremity to suggest another focal area of stenosis. Peak systolic velocities are as follows: RIGHT LEG: COMMON FEMORAL: 42.8cm/s FEMORAL: Proximal: 90.3cm/s Mid: 86.4 cm/s Distal: 74.3cm/s POPLITEAL: Proximal: 59.8cm/s Mid: 37.0 cm/s Distal: 45.0cm/s POSTERIOR TIBIAL: Proximal: 42.7 cm/s Mid: 44.7 cm/s Distal: 41.4 cm/s ANTERIOR TIBIAL: Proximal: 37.6 cm/s Mid: 32.7 cm/s Distal: 63.6 cm/s DORSALIS PEDIS: 62.5 cm/s LEFT LEG: COMMON FEMORAL: 244.7 cm/s FEMORAL: Proximal: 116.7 cm/s Mid: 83.6 cm/s Distal: 53.1 cm/s POPLITEAL: Proximal: 73.5 cm/s Mid: 53.7 cm/s Distal: 50.5cm/s POSTERIOR TIBIAL: Proximal: 53.1 cm/s Mid: 76.8 cm/s Distal: 65.8 cm/s ANTERIOR TIBIAL: Proximal: 57.5cm/s Mid: 45.5 cm/s Distal: 62.5cm/s DORSALIS PEDIS: 87.5cm/s [facility]-[id number] Procedure Note Hm Interface, Radiology Results Incoming - 03/14/2020 3:58 PM CDT EXAM: US DUPLEX ARTERIAL LOWER EXTREMITY BILATERAL HISTORY: I73.9 Peripheral vascular disea se unspecified, A25 s p (B) INFO SPECIALIST endarterectomy Revision fem-fem bypass 4 TECHNIQUE: Real-time as well as pulsed a nd color Doppler evaluation of bilateral common femoral, femoral, popliteal, posterior tibial, anterior tibial, and dorsalis pedis arteries are evaluated. The examination includes a full duplex Doppler scan of t he blood vessels (real-time P mode grayscal e, Doppler spectral analysis, and Doppler color flow imaging). COMPARISON: CT abdomen pelvis with bilat eral lower extremity runoff from 12/10/2018 IMPRESSION: 1.Patent common femoral to common femora l bypass graft within the superficial soft tissues of the anterior/inferior abdomen. There is nonspecific ectasia of the right common femoral artery at the anastomosis with the graft measuring 1.9 cm. 2.Flow is seen within all evaluated lela isauro of the right and left lower extremity on color Doppler. 3.Likely chronic stenosis within the lef t common femoral artery based on findings on prior CTA from 12/10/2018. 4.No significant stenosis is suggested w ithin either the right or left lower extremities. FINDINGS: Flow seen within all evaluated arteries on color Doppler. A patent common femoral to common femora l bypass graft is noted within the superficial soft tissues of the anterior/inferior pelvis. There is fusiform ectasia of the right common femoral artery at the anastomosis measuring 1.9 cm in diameter. Biphasic waveforms are seen within the r ight common femoral, superficial femoral, popliteal, and dorsalis pedis arteries. Monophasic waveforms are suggested within the anterior tibial and posterior tibial arteries, however, there is no evidence of tardus parvus waveform morphology. No signific ant elevation or gradient in peak systolic velocity is seen within the right lower extremity to suggest a focal area of stenosis. Biphasic waveforms are seen within the l eft superficial femoral, popliteal, and dorsalis pedis arteries. Monophasic waveforms are noted within the anterior tibial and posterior tibial arteries without evidence of tardus parvus waveform morphology. Th ere is an elevation in peak systolic velocit y noted within the common femoral artery measuring 244.7 cm/s, which may represent significant stenosis secondary to calcified atherosclerotic disease seen on prior CT from 12/10/2018. Otherwise, no elevation in pea k systolic velocity or gradient in systol ic velocity seen within the left lower extremity to suggest another focal area of stenosis. Peak systolic velocities are as follows: RIGHT LEG: COMMON FEMORAL: 42.8cm/s FEMORAL: Proximal: 90.3 cm/s Mid: 86.4 cm/s Distal: 7 4.3cm/s POPLITEAL: Proximal: 59. 8cm/s Mid: 37.0 cm/s Distal: 45.0cm/s POSTERIOR TIBIAL: Proximal: 42.7 cm/s Mid: 44.7 cm/s Distal: 4 1.4 cm/s ANTERIOR TIBIAL: Proximal: 37.6 cm/s Mid: 32.7 cm/s Distal: 6 3.6 cm/s DORSALIS PEDIS: 62.5 cm/s LEFT LEG: COMMON FEMORAL: 244.7 cm/s FEMORAL: Proximal: 116. 7 cm/s Mid: 83.6 cm/s Distal: 5 3.1 cm/s POPLITEAL: Proximal: 73.5 cm/s Mid: 53.7 cm/s Distal: 50.5cm/s POSTERIOR TIBIAL: Proximal: 53.1 cm/s Mid: 76.8 cm/s Distal: 6 5.8 cm/s ANTERIOR TIBIAL: Proximal: 57. 5cm/s Mid: 45.5 cm/s Distal: 62.5cm/s DORSALIS PEDIS: 87.5cm/s [id number] Performing Organization Address City/State/Zipcode Phone Number [facility] [address] [place] [address] Us carotid duplex (03/14/2020 3:09 PM CDT)Only the most recent of2 results within the time period is included. Specimen Narrative Performed At US CAROTID DUPLEX BILATERAL [facility] CLINICAL INDICATION: I73.9 Peripheral vascular disease unspecified, I65.23 Occlusion and stenosis of bilateral carotid art eries, Carotid u s for carotid artery disease surveillance TECHNIQUE: Examination includes full duplex Doppler sc an (real-time B mode grayscale, Doppler spectral analysis, Doppler col or flow imaging) of the common carotid, internal carotid, external villavicencio tid, and vertebral arteries. Velocity parameters are based upon studies using distal internal carotid artery diam eter as a denominator for stenosis calculation. COMPARISON: None. FINDINGS: RIGHT SIDE: Plaque: There is prominent atherosclerotic plaque th rough the common carotid arteries, the carotid bulb and the proximal in ternal and external carotid arteries. Dense shadowing is noted fr om calcifications which limits evaluation as well as the d egree of carotid tortuosity. Peak systolic velocity right ICA: 247 cm/sec at bulb Peak diastolic velocity right ICA: 50.4 cm/sec Right ICA/CCA ratio: 5.1 There is antegrade flow in the right vertebral artery. The left external carotid artery is not well visualized. LEFT SIDE: Plaque: There is prominent atherosclerotic plaque in volving the left common carotid artery, carotid bulb as well as the int ernal carotid artery. There is very limited flow identified through the carotid bulb but some arterial flow is present reflec ting nonoccluded status Peak systolic velocity left ICA: 295 c m/sec mid segment Peak diastolic velocity left ICA: 23 cm/ sec Right ICA/CCA ratio: 6.1 There is antegrade flow in the left vert ebral artery. OTHER: Findings are consistent with greater than 70% bilateral stenosis of the internal carotid arteries by criterion given elevated velocities greater than 230 cm/s and internal carotid to common carotid ratios greater than 4.0. Correlation wit h CT or MR angiography is recommended. IMPRESSION: Greater than 70% hemodialysis significant stenoses are present involving the right left internal carotid arteries. There is busch ited visualization of the external carotid arteries with plaque. CT or MR angiography is recommended for further evaluation and correlation with the ultrasound appeara nce. Antegrade bilateral vertebral artery dony w. *[id number] Procedure Note Hm Interface, Radiology Results Incoming - 03/14/2020 3:55 PM CDT US CAROTID DUPLEX BILATERAL CLINICAL INDICATION: I73.9 Peripheral va scular disease unspecified, I65.23 Occlusion and stenosis of bilateral carotid arteries, Carotid u s for carotid artery disease surveillance TECHNIQUE: Examination includes full dup miguel a Doppler scan (real-time B mode grayscale, Doppler spectral analysis, Doppler color flow imaging) of the common carotid, internal carotid, external carotid, and vertebral arteries. Velocity parameters are based upon studies using distal internal carot id artery diameter as a denominator for stenosis calculation. COMPARISON: None. FINDINGS: RIGHT SIDE: Plaque: There is prominent atherosclero tic plaque through the common carotid arteries, the carotid bulb and the proximal internal and external carotid arteries. Dense shadowing is noted from calcifications which limits evaluation as well as the degree of carotid tortuosity. Peak systolic velocity right ICA: 247 c m/sec at bulb Peak diastolic velocity right ICA: 50.4 cm/sec Right ICA/CCA ratio: 5.1 There is antegrade flow in the right carmen tebral artery. The left external carotid artery is not well visualized. LEFT SIDE: Plaque: There is prominent atherosclero tic plaque involving the left common carotid artery, carotid bulb as well as the internal carotid artery. There is very limited flow identified through the carotid bulb but some arterial flow is present reflecting nonoccluded status Peak systolic velocity left ICA: 295 cm /sec mid segment Peak diastolic velocity left ICA: 23 cm/ sec Right ICA/CCA ratio: 6.1 There is antegrade flow in the left vert ebral artery. OTHER: Findings are consistent with gre ater than 70% bilateral stenosis of the internal carotid arteries by criterion given elevated velocities greater than 230 cm/s and internal carotid to common carotid ratios greater than 4.0. Correlation with CT or MR angiography is recommended. IMPRESSION: Greater than 70% hemodialysis significan t stenoses are present involving the right left internal carotid arteries. There is limited visualization of the external carotid arteries with plaque. CT or MR angiography is recommended for further evaluation and correlation with the ultrasound appeara nce. Antegrade bilateral vertebral artery dony w. *[id number] Performing Organization Address City/State/Zipcode Phone Number [facility] [address] [place] [address] Us ankle brachial index (06/01/2019 9:10 AM CDT) Specimen Narrative Performed At [facility] Lower Extremity Art erial Physiologic Report [address] [place] [address] Pat.Name: JAE RUBI.ID: [id number] .Date: 06/01/2019 Refer.MD: JACQUELINE BERNAL MD Exam Time: 7:55:00 AM Study Type:P hysiologic Leg Age: 4 1940,79Y Sex: FEMALE Sonogrphr: Benjie Belcher RVT CPT - 4: 939 22 Echo Event ID:[id number] Order ID: [id number] Reason for Study:PAD; 3 months F/up s/p bilateral INFO SPECIALIST endarterectomy with revision of the Fem-fem bypass 02/03 Race: C SUMMARY: DOPPLER SIGNALS / ANALOG WAVEFORMS: ANALOG WAVEFORMS ARTERY RIGHT LEFT Posterior Tibial Abnormal Abnormal Dorsalis Pedis Abnormal Abnormal PRELIMINARY FINDINGS: 1. Resting ankle brachial indices are within normal limits, bilaterally. 2. Toe brachial index suggests mild disease, bilaterally. See the same day carotid and lower ex tremity arterial Duplex exams Patient seen in the clinic by Dr Bernal PHYSICIAN INTERPRETATION: 1. Resting ankle brachial indices are within normal limits, bilaterally. 2. Toe brachial index suggests mild disease, bilaterally. MEASUREMENTS: PRESSURES Right Brachial Brach P 159 mmHg Right Ankle PT AnklePT P 160 mmHg Left Ankle PT AnklePT P 158 mmHg Right Ankle DP AnkleDP P 153 mmHg Left Ankle DP AnkleDP P 161 mmHg Right Great Toe GreatToe P 76 mmHg Left Great Toe GreatToe P 80 mmHg Right RENU PT RENU PT 1.01 Left RENU PT RENU PT 0.994 Right RENU DP RENU DP 0.962 Left RENU DP RENU DP 1.01 Right TBI TBI 0.478 Left TBI TBI 0.503 Signed 06/16/2019 04:14 PM Maycol Swartz MD, FACS, RPVI Procedure Note Interface, Radiology Results In - 2018 4:14 PM CDT [facility] Lower Extremity Arterial P hysiologic Report [address] [place] [address] Pat.Name: JAE RUBI I D: [id number] .Date: 06/01/2019 Refer .MD: JACQUELINE BERNAL MD Exam Time: 7:55:00 AM Study Type:Physiologic Leg Age: 4 1940,79Y Sex: FEMALE Sonogrphr: Benjie Belcher RVT CPT - 4: 77435 Echo Event ID:[id number] Order ID: [id number] Reason for Study:PAD; 3 months F/up s/p bilateral INFO SPECIALIST endarterectomy with revision of the Fem-fem bypass 02/03 Race: C SUMMARY: DOPPLER SIGNALS / ANALOG WAVEFORMS: ANALOG WAVEFORMS ARTERY RIGHT LEFT Posterior Tibial Abnormal Abnormal Dorsalis Pedis Abnormal Abnormal PRELIMINARY FINDINGS: 1. Resting ankle brachial indices are within normal limits, bilaterally. 2. Toe brachial index suggests mild d isease, bilaterally. See the same day carotid and lower ext remity arterial Duplex exams Patient seen in the clinic by Dr Bernal PHYSICIAN INTERPRETATION: 1. Resting ankle brachial indices are within normal limits, bilaterally. 2. Toe brachial index suggests mild d isease, bilaterally. MEASUREMENTS: PRESSURES Right Brachial Brach P 159 mmHg Right Ankle PT AnklePT P 160 mmHg Left Ankle PT AnklePT P 158 mmHg Right Ankle DP AnkleDP P 153 mmHg Left Ankle DP AnkleDP P 161 mmHg Right Great Toe GreatToe P 76 mmHg Left Great Toe GreatToe P 80 mmHg Right RENU PT RENU PT 1.01 Left RENU PT RENU PT 0.994 Right RENU DP RENU DP 0.962 Left RENU DP RENU DP 1.01 Right TBI TBI 0.478 Left TBI TBI 0.503 Signed 06/16/2019 04:14 PM Maycol Swratz MD, FACS, RPVI Performing Organization Address City/State/[facility] Phone Number [facility] [id number] [place] [address] after 05/15/2019 Advance Directives For more information, please contact: [phone] Type Date Recorded Patient [employer] Flight [employer]ic Explanati on Advance Directives, Living Will and Medical Power of Director [employer]
--- OUTSIDE RECORDS SUMMARY | 2020-05-15 05:06 | XMS REPORT | Continuity of Care Document ---
:1940 Author Organization [facility] t Address [address] [place] [address] Care Team Providers Name Role Phone Ulises ULRICH Primary Care Physician Koko Kebede MD Attending Clinician Ty Guthrie MD Attending Clinician Deborah ROBERTSON Attending Clinician Unavailable Lu Virgen MA Attending Clinician Unavailable JO-ANN WARREN Attending Clinician Unavailable JO-ANN WARREN Admitting Clinician Unavailable Payers Payer Name Policy Type Policy Number Effective Date Expiration Date S susan AETNA xxxxxxxx 2013 [place] MEDICAREAETNA 00:00:00 [facility] MEDIC[facility] HMO[facility]Present[facility] Problems Condition Condition Condition Status Onset Resolution Last Treating Co mments Source Name Details Category Date Date Treatment Clinician Date Bilateral Bilateral Disease Active Last Ajit ston carotid carotid 6-18 Assessmen [facility] di artery artery 00:00: t & Plan: st stenosis stenosis 00 Continue surveilla nce of right carotid artery stent with duplex ultrasoun d in 6 months. Continue aspirin, Plavix, hypertens ion control, statin. Chest pain Chest pain Disease Active [place] 8-14 [facility] 00:00: st 00 Syncope Syncope Disease Active 2017-[address] [facility] [facility] and 4[facility]16 [facility] collapse collapse 00:00: Medica l 00 Center Essential Essential Disease Active 2015-10 Ajit mcclellan hypertensi hypertensi -08 Me thodi on on 00:00: st 00 PAD PAD Disease Active 2015-10 Last [place] (periphera (periphera 08 Assessmen Methodi l artery l artery 00:00: t & Plan: st disease) disease) 00 Improved symptoms. Continue medical optimizat ion and anti-coag ulation. Follow up in 6 months. CAD in CAD in Disease Active 2015-10 [place] tunica-biloxi tunica-biloxi 10-19 Methodi artery artery 00:00: st 00 Bilateral Bilateral Disease Active 2015-10 Ajit stoebony carotid carotid 08 [facility] artery artery 00:00: st disease disease 00 Allergies, Adverse Reactions, Alerts Allergy Allergy Status Severity Reaction(s) Onset Inactive Treating Comm ents Source Name Type Date Date Clinician Perindop Propensi Active Anaphylaxis [place] ty to 4-25 [facility] Erbumine adverse 00:00: st reaction 00 s to drug Amoxicil Propensi Active [place] to 4-10 [facility] Clavulan adverse 00:00: st ate reaction 00 s to drug Codeine Propensi Active Other [place] ty to 4-01 reaction( Methodi adverse 00:00: s): st reaction 00 Unknown s to drug Perindop Drug Active Swelling 2017- [facility] All[facility] 4[facility] - [facility]: up. Medical 00 [place] Perindop Propensi Active [place] [address] Throat [place] ty to 4-16 swelled [facility] adverse 00:00: up. st reaction 00 s to drug Family History Family Member Diagnosis Comments Start Date Stop Date Source Natural father Heart disease [facility] Natural father Hypertension [facility] Natural father Heart disease [place] [facility] Natural mother Cancer [facility] Natural mother Cancer [place] [facility] Natural brother Heart disease [place] [facility] Paternal grandfather Heart disease [facility] [place] [facility] Natural sister Cancer [place] [facility] Social History Social Habit Start Date Stop Date Quantity Comments Source Sex Assigned At [place] [facility] Cigarettes smoked 2020-03-26 2020-03-26 [place] current (pack per 00:00:00 00:00:[address] day) - Reported Cigarette 2020-03-26 2020-03-26 Robbie pack-years 00:00:00 00:00:00 [facility] Alcohol intake 2020-03-26 2020-03-26 Current drinker of Audie lott 00:00:00 00:00:00 alcohol (finding) [facility] st Alcohol Comment 2019-01-19 2019-01-19 ocasionally [facility] 00:00:00 00:00:00 [facility] History of tobacco 2019-01-10 Current smoker Audie lott use 00:00:00 [facility] Smoking Status Start Date Stop Date Source Former smoker 2020-03-26 00:00:00 2020-03-26 00:00:00 [facility] Current every day 2017-01-25 00:00:00 [facility] Medications Ordered Filled Start Stop Current Ordering Indication Dosage Frequency Signature Comments Components Source Medication Medication Date Date Medication? Clinician (SIG) Name Name pantoprazol 2020-0 Yes Chest pain, TAKE ONE [facility] e 7-23 unspecified TABLET BY [facility] (PROTONIX) 00:00: type MOUTH st 40 MG EC 00 DAILY tablet clopidogreL 2020-0 Yes TAKE ONE Audie lott (PLAVIX) 75 7-23 TABLET BY Met hodi mg tablet 00:00: MOUTH st 00 DAILY fluticasone 2020-0 Yes Inhale. 1 [place] -umeclidin- 6-15 puff daily Me thodi vilanter 14:41: st (Trelegy 29 Ellipta) 100-62.5-25 mcg blister with device acetaminoph 2020-0 Yes 650mg Take 650 [place] en 6-15 mg by [facility] (TYLENOL) 14:41: mouth as st 650 MG 8 hr 29 needed for tablet mild pain. furosemide 2020-0 Yes 20mg Take 20 mg [place] (LASIX) 20 6-15 by mouth Metho di mg tablet 14:41: as needed. st 29 citalopram 2020-0 Yes 40mg QD Take 40 mg [place] (CeleXA) 40 6-15 by mouth Meth adri MG tablet 14:41: daily. st 28 nicotine 2020-0 2020- No 1{patch Q24H Place 1 Audie lott (NICODERM 6-15 06-15 } patch on Metho di CQ) 7 mg/24 14:41: 00:00 the skin s t hr 20 :00 daily. arformotero 2020- No 15ug Q.5D Take 15 [place] (BROVANA) 6-15 06-15 mcg by Metho di 15 mcg/2 mL 14:40: 00:[address] solution 58 :00 on 2 (two) for times a nebulizatio day. n losartan 2019- No TAKE ONE [place] (COZAAR) 6- 06-15 TABLET BY Metho di 100 MG 00:00: 00:[address] tablet 00 :00 DAILY clopidogreL 2020- No TAKE ONE [place] (PLAVIX) 75 5-26 07-23 TABLET BY Me thodi mg tablet 00:00: 00:[address] 00 :00 DAILY losartan 2019- No TAKE ONE [place] (COZAAR) 3-02 06- TABLET BY Metho di 100 MG 00:00: 00:[address] tablet 00 :00 DAILY clopidogrel 2020- No 75mg QD Take 75 mg [facility] (PLAVIX) 75 2-28 02-28 by mouth Met hodi mg tablet 08:17: 00:[address] 07 :00 clopidogreL 2019- 2020- No TAKE ONE [place] (PLAVIX) 75 2-28 05-26 TABLET BY Me thodi mg tablet 00:00: 00:[address] 00 :00 DAILY losartan 2018-10- No TAKE ONE [place] (COZAAR) 2-06 03-02 TABLET BY Metho di 100 MG 00:00: 00:[address] tablet 00 :00 DAILY rosuvastati 2018- Yes 10mg QD Take 10 mg [facility] n (CRESTOR) 8-21 by mouth Meth adri 10 MG 10:12: daily. st tablet 56 roflumilast 2018-0 Yes 500ug QD Take 500 [place] (DALIRESP) 8-21 mcg by Methodi 500 mcg 10:12: mouth st tablet 56 daily. zolpidem 2019-0 Yes 5mg QD Take 5 mg [place] (AMBIEN) 10 8-21 by mouth Meth adri mg tablet 10:12: nightly as st 56 needed for sleep. tiotropium 2018-0 Yes 2{puff} QD Inhale 2 [place] bromide 8-21 puffs [facility] (SPIRIVA 10:12: daily. st RESPIMAT 56 INHL) aspirin Yes 81mg QD Take 81 mg [place] (ECOTRIN) 8-21 by mouth Method i 81 MG 10:12: daily. st enteric 56 coated tablet albuterol Yes 2{puff} Q4H Inhale 2 [place] (PROAIR 8-21 puffs Methodi HFA,PROVENT 10:12: every [address] [place] 56 (four) HFA,VENTOLI hours as N HFA) 90 needed for mcg/actuati wheezing. on inhaler losartan Yes 50mg QD Take 50 mg Ajit ston (COZAAR) 50 8-21 by mouth Meth adri MG tablet 10:12: daily. st 56 losartan 2018- No 100mg QD Take 100 Ajit ston (COZAAR) 8-13 08-13 mg by Methodi 100 MG 13:26: 00:[address] tablet 50 :00 daily. pantoprazol 2019- No Chest pain, TAKE ONE [facility] e 03-18 unspecified TABLET BY Me [place] (PROTONIX) 00:00: 00:[address] 40 MG EC 00 :00 DAILY tablet losartan 2018- No TAKE ONE [place] (COZAAR) 03-18- TABLET BY Metho di 100 MG 00:00: 00:[address] tablet 00 :00 DAILY clopidogrel 2018- No Coronary TAKE ONE [facility] (PLAVIX) 75 03-18- artery TABLET BY Methodi mg tablet 00:00: 00:[address] 00 :00 involving DAILY tunica-biloxi heart with angina pectoris, unspecified vessel or lesion type ([facility]) pantoprazol 2018- No Chest pain, TAKE ONE [facility] e 03-15- unspecified TABLET BY [employer] thodi (PROTONIX) 00:00: 00:[address] 40 MG EC 00 :00 DAILY tablet losartan 2018- No TAKE ONE [place] (COZAAR) -01 17- TABLET BY Metho di 100 MG 00:00: 00:[address] tablet 00 :00 DAILY clopidogrel 2018- No Coronary TAKE ONE [place] (PLAVIX) 75 03-15- artery TABLET BY Methodi mg tablet 00:00: 00:[address] 00 :00 involving DAILY tunica-biloxi heart with angina pectoris, unspecified vessel or lesion type (HCC) spironolact Yes 50mg Q.5D Take 50 mg [facility] one 3-09 by mouth 2 [facility] (ALDACTONE) 00:00: (two) st 25 MG 00 times a tablet day. metoprolol Yes 12.5mg Q.5D Take 0.5 [place] tartrate 2-12 tablets [facility] (LOPRESSOR) 00:00: (12.[address] 25 mg 00 total) by tablet mouth 2 (two) times a day. buPROPion Yes 100mg Q.5D Take 100 Ajit ston SR 2-04 mg by [facility] (WELLBUTRIN 00:00: mouth 2 st SR) 100 MG 00 (two) 12 hr times a tablet day. LYRICA 75 Yes 75mg QD Take 75 mg [place] mg capsule 09 by mouth Metho di 00:00: daily. st 00 hydrALAZINE 2016-10 Yes 25mg Q24H Take 1 [place] (APRESOLINE 2-06 tablet (25 Me thodi ) 25 MG 00:00: mg total) st tablet 00 by mouth daily as needed (sytolic bp >160). zolpidem Yes 10mg Take [address] (AMBIEN) 10 4-16 by mouth Luke s - mg tablet 01:41: every Medical 25 night as Center needed for Insomnia. cloNIDine Yes .1mg Take 0.[address] HCl 4-16 mg by [facility] - (CATAPRES) 01:41: mouth as Med ical 0.1 MG 25 needed. Center tablet levothyroxi Yes a condition 100ug Take [address] ne 4-16 with low mcg by [facility] - (SYNTHROID, 01:41: thyroid mouth Me dical LEVOTHROID) 24 hormone Every Cent er 100 MCG levels morning on tablet an empty stomach. rosuvastati Yes excessive 10mg QD Take [address] n (CRESTOR) 4-16 fat in the by mouth [facility] - 10 MG 01:41: blood daily. Medical tablet 24 Center citalopram Yes anxiousness 40mg QD Take [address] (CELEXA) 40 4-16 associated by mouth [facility] - MG tablet 01:41: with daily. Medica l 24 depression [place] clopidogrel Yes 75mg QD Take [address] (PLAVIX) 75 4-16 by mouth Luke s - mg tablet 01:41: daily. [address] aspirin 81 Yes 81mg QD Take [address] MG EC 4-16 by mouth [facility] - tablet 01:41: daily. [address] furosemide Yes 20mg QD Take [address] (LASIX) 20 4-16 by mouth [facility] - MG tablet 01:41: daily. [address] anastrozole Yes 1mg QD Take [address] (ARIMIDEX) 4-16 by mouth [facility] - 1 mg tablet 01:41: daily. Medi shane 24 [place] alendronate Yes decreased 70mg Take [address] (FOSAMAX) 4-16 bone mass by mouth L ukes - 70 MG 01:41: following every 7 Medi shane tablet 24 menopause days Take [address]ys[address] ter in the morning with a full glass of water, on an empty stomach, and do not take anything else by mouth or lie down for the next 30 min. . pregabalin Yes 50mg Take [address] (LYRICA) 50 4-16 by mouth Luke s - MG capsule 01:41: daily with M edical 24 dinner. [place] traMADol Yes pain 50mg Take [address] (ULTRAM) 50 4-16 by mouth Luke s - mg tablet 01:41: as needed Med ical 24 for Pain. [place] metoprolol Yes high blood 100mg QD Take [address] (LOPRESSOR) 4-16 pressure mg by [place] es - 100 MG 01:32: mouth Medical tablet 28 daily. [place] losartan Yes high blood 100mg QD Take [address] (COZAAR) 4-16 pressure mg by [facility] - 100 MG 01:32: mouth Medical tablet 28 daily. [place] predniSONE 2015-10 Yes 5mg QD Take 5 mg [place] (DELTASONE) 0-19 by mouth Meth adri 10 MG 00:00: daily. st tablet 00 levothyroxi 2015-10 Yes 100ug QD Take 100 [place] ne 0-14 mcg by Method[facility] (SYNTHROID, 00:00: mouth st LEVOTHROID) 00 daily. 100 MCG tablet traMADol 2015-10 Yes 50mg Q8H Take 50 mg Ajit ston (ULTRAM) 50 0-14 by mouth Meth adri mg tablet 00:00: every 8 st 00 (eight) hours as needed. Vital Signs Vital Name Observation Time Observation Value Comments Source Body height 2020-03-21 10:45:00 172.7 cm Robbie Asif Body weight 2020-03-21 10:45:00 63.504 kg [facility] Asif BMI 2020-03-21 10:45:00 21.29 kg/m2 [facility] Asif Systolic blood 2019-12-13 13:09:00 135 mm[Hg] [place] [facility] pressure Diastolic blood 2019-12-13 13:09:00 63 mm[Hg] [place] [facility] pressure Heart rate 2019-12-13 13:09:00 76 /min [facility] Asif Body temperature 2019-06-01 10:12:00 36.83 [place] [facility] Procedures Procedure Date / Time Performed Performing Clinician [facility] e CT ANGIOGRAM NECK W WO 2020-03-21 11:23:49 Jacqueline Guthrie CONTRAST Ty POC CREATININE 2020-03-21 10:49:00 Karla Vazquez Meth odcomfort ESTIMATED GFR 2020-03-21 10:49:00 Karla Vazquez Meth odist US DUPLEX ARTERIAL 2020-03-14 15:10:09 Jacqueline Guthrie LOWER EXTREMITY Ty BILATERAL US CAROTID DUPLEX 2020-03-14 15:09:56 Jacqueline Guthrie BILATERAL Ty US CAROTID DUPLEX 2019-06-01 09:44:00 Jacqueline Guthrie BILATERAL Ty US DUPLEX ARTERIAL 2019-06-01 09:10:00 Jacqueline Guthrie LOWER EXTREMITY Ty BILATERAL US ANKLE BRACHIAL INDEX 2019-06-01 09:10:00 Jacqueline Guthrie Ty Plan of Care Planned Activity Planned Date Details Comments Source Future Scheduled 2020-05-12 INFLUENZA VACCINE [facility] Test 00:00:00 [code = INFLUENZA VACCINE] Future Scheduled 2006 65+ PNEUMOCOCCAL Robbie Asif Test 00:00:00 VACCINE (1 of 2 - PCV13) [code = 65+ PNEUMOCOCCAL VACCINE (1 of 2 - PCV13)] Future Scheduled 1991 SHINGLES VACCINES (#1) [facility] [place] [facility] Test 00:00:00 [code = SHINGLES VACCINES (#1)] Encounters Start End Encounter Admission Attending Care Care Encounter Source Date/Time Date/Time Type Type Clinicians Facility Department ID 2020-03-28 2020-03-28 Outpatient [facility], [facility] [id number] [place] 00:00:00 00:00:00 [facility] 787 [facility] 2020-03-21 2020-03-21 Outpatient [facility], [facility] [id number] [place] 00:00:00 00:00:00 CHARUDATTA 632 [facility] st 2020-03-14 2020-03-14 Outpatient [facility], [facility] [id number] [place] 00:00:00 00:00:00 CHARUDATTA [id number] [facility] 2020-03-14 2020-03-14 Outpatient [facility], [facility] [id number] [place] 00:00:00 00:00:00 CHARUDATTA 028 [facility] 2019-12-13 2019-12-13 Outpatient [facility], [facility] [id number] [place] 00:00:00 00:00:00 MARY [address] Results Test Description Test Time Test Comments Results Result Comments Source HEMOGLOBIN A1C 2017-01-25 09:13:00 Test Item Value Reference Range Interpretation Comme nts HEMOGLOBIN A1C (BEAKER) (test code = 368) 5.6 % 4.3-6.1 VITAMIN [id number] 07:58:00 Test Item Value Reference Range Interpretation Comments VITAMIN B12 (BEAKER) (test code = 317 pg/mL 213-816 774) TSH/FREE T4 IF [id number] 07:51:00 Test Item Value Reference Range Interpretation Comments THYROID STIMULATING HORMONE 1.65 uIU/mL 0.35-4.94 (BEAKER) (test code = 772) [id number] 07:37:00 Test Item Value Reference Range Interpretation Comments MAGNESIUM (BEAKER) (test code = 2.0 mg/dL 1.6-2.6 627) BASIC METABOLIC [id number] 07:37:00 Test Item Value Reference Range Interpretation Comments SODIUM (BEAKER) 138 meq/L 136-145 (test code = 381) POTASSIUM (BEAKER) 4.8 meq/L 3.5-5.1 (test code = 379) CHLORIDE (BEAKER) 103 meq/L 98-107 (test code = 382) CO2 (BEAKER) (test 25 meq/L 22-29 code = 355) BLOOD UREA NITROGEN 21 mg/dL 7-21 (BEAKER) (test code = 354) CREATININE (BEAKER) 0.86 mg/dL 0.57-1.25 (test code = 358) GLUCOSE RANDOM 68 mg/dL 70-105 L (BEAKER) (test code = 652) CALCIUM (BEAKER) 8.4 mg/dL 8.4-10.2 (test code = 697) EGFR (BEAKER) (test 64 mL/min/1.73 ESTIMA ARNEL GFR IS code = 1092) sq m NOT ACCURATE CREATININE CLEARANCE IN PREDICTING GLOMERULAR FILTRATION RATE . ESTIMATED GFR I S NOT APPLICABLE FOR DIALYSIS PATIEN TS. LIPID [id number] 07:37:00 Test Item Value Reference Range Interpretation Comments TRIGLYCERIDES (BEAKER) (test code = 93 mg/dL 540) CHOLESTEROL (BEAKER) (test code = 146 mg/dL 631) HDL CHOLESTEROL (BEAKER) (test code 56 mg/dL = 976) LDL CHOLESTEROL CALCULATED (BEAKER) 71 mg/dL (test code = 633) Triglyceride Reference Range: Low Risk <150 Borderline 150-199 High Risk 200-499 Very High Risk >=500Cholesterol Reference Range: Low Risk <200 Borderline 200-239 High Risk >240HDL Cholesterol Reference Range: Low Risk >=60 High Risk <40LDL Cholesterol Reference Range: Optimal <100 Near Optimal 100-129 Borderline 130-159 High 160-189 Very High >=190HEPATIC FUNCTION [id number] 07:37:00 Test Item Value Reference Range Interpretation Comments TOTAL PROTEIN (BEAKER) (test code = 6.1 gm/dL 6.0-8.3 770) ALBUMIN (BEAKER) (test code = 1145) 3.8 g/dL 3.5-5.0 BILIRUBIN TOTAL (BEAKER) (test code 0.3 mg/dL 0.2-1.2 = 377) BILIRUBIN DIRECT (BEAKER) (test 0.1 mg/dL 0.1-0.5 code = 706) ALKALINE PHOSPHATASE (BEAKER) (test 56 U/L 40-150 code = 346) AST (SGOT) (BEAKER) (test code = 17 U/L 5-34 353) ALT (SGPT) (BEAKER) (test code = 8 U/L 6-55 347) CBC W/PLT COUNT & AUTO [id number] 07:33:00 Test Item Value Reference Range Interpretation Comments WHITE BLOOD CELL COUNT (BEAKER) 5.1 K/ L 4.0-10.0 (test code = 775) RED BLOOD CELL COUNT (BEAKER) 4.01 M/ L 4.00-5.00 (test code = 761) HEMOGLOBIN (BEAKER) (test code = 12.8 GM/DL 12.0-15.0 410) HEMATOCRIT (BEAKER) (test code = 39.7 % 36.0-45.0 411) MEAN CORPUSCULAR VOLUME (BEAKER) 98.9 fL 82.0-99.0 (test code = 753) MEAN CORPUSCULAR HEMOGLOBIN 32.0 pg 27.0-33.0 (BEAKER) (test code = 751) MEAN CORPUSCULAR HEMOGLOBIN CONC 32.4 GM/DL 32.0-36.0 (BEAKER) (test code = 752) RED CELL DISTRIBUTION WIDTH 13.6 % 10.3-14.2 (BEAKER) (test code = 412) PLATELET COUNT (BEAKER) (test 195 K/CU MM 150-430 code = 756) MEAN PLATELET VOLUME (BEAKER) 7.4 fL 6.5-10.5 (test code = 754) NUCLEATED RED BLOOD CELLS 0 /100 WBC 0-0 (BEAKER) (test code = 413) NEUTROPHILS RELATIVE PERCENT 46 % (BEAKER) (test code = 429) LYMPHOCYTES RELATIVE PERCENT 41 % (BEAKER) (test code = 430) MONOCYTES RELATIVE PERCENT 11 % (BEAKER) (test code = 431) EOSINOPHILS RELATIVE PERCENT 1 % (BEAKER) (test code = 432) BASOPHILS RELATIVE PERCENT 1 % (BEAKER) (test code = 437) NEUTROPHILS ABSOLUTE COUNT 2.34 K/ L 1.80-8.00 (BEAKER) (test code = 670) LYMPHOCYTES ABSOLUTE COUNT 2.10 K/ L 1.48-4.50 (BEAKER) (test code = 414) MONOCYTES ABSOLUTE COUNT (BEAKER) 0.58 K/ L 0.00-1.30 (test code = 415) EOSINOPHILS ABSOLUTE COUNT 0.03 K/ L 0.00-0.50 (BEAKER) (test code = 416) BASOPHILS ABSOLUTE COUNT (BEAKER) 0.06 K/ L 0.00-0.20 (test code = 417) 0.00PT/[id number] 07:04:00 Test Item Value Reference Range Interpretation Comments PROTIME (BEAKER) (test code = 12.8 seconds 11.7-14.7 759) INR (BEAKER) (test code = 370) 1.0 <=5.9 PARTIAL THROMBOPLASTIN TIME 26.8 seconds 22.5-36.0 (BEAKER) (test code = 760) RECOMMENDED COUMADIN/WARFARIN INR THERAPY RANGESSTANDARD DOSE: 2.0 - 3.0 Includes: PROPHYLAXIS forvenous thrombosis, systemic embolization; TREATMENT for venous thrombosis and/or pulmonary embolus.HIGH RISK: Target INR is 2.5-3.5 for patients with mechanical heart valves.PROTHROMBIN TIME/[id number] 07:03:00 Test Item Value Reference Range Interpretation Comments PROTIME (BEAKER) (test code = 12.8 seconds 11.7-14.7 759) INR (BEAKER) (test code = 370) 1.0 <=5.9 RECOMMENDED COUMADIN/WARFARIN INR THERAPY RANGESSTANDARD DOSE: 2.0 - 3.0 Includes: PROPHYLAXIS forvenous thrombosis, systemic embolization; TREATMENT for venous thrombosis and/or pulmonary embolus.HIGH RISK: Target INR is 2.5-3.5 for patients with mechanical heart valves.
[2020-05-15] MEDS ORDERED: LEVALBUTEROL 1.25 MG/3 ML NEB ONE (05:16)
[2020-05-15 05:27] LABS: Absolute Lymphocytes (CBC) 1.7 K/uL (0.7-4.9); Basophils % 0.9 % (0-1.3); Hematocrit 34.6 % (36.0-45.0); Lymphocytes % 23.2 % (15.3-44.8); MPV 8.1 fL (7.6-11.3); RBC Red Blood Cell Count 3.56 M/uL (3.86-4.86)
[2020-05-15 05:31] LABS: Protime INR 0.91
[2020-05-15 05:46] LABS: BUN Blood Urea Nitrogen 23 mg/dL (7-18); Bicarbonate 30 mmol/L (21-32); Ferritin 196.1 ng/mL (8-388); Glucose Level 82 mg/dL (74-106); Potassium 4.9 mmol/L (3.5-5.1); Sodium Level 141 mmol/L (136-145); Troponin (Emerg Dept Use Only) < 0.02 ng/mL (0.0-0.045)
--- NOTE | 2020-05-15 06:10 | EDPHYS ---
Physician Documentation [facility] Name: Michelle Benson Age: 80 yrs Sex: Female : 1940 Arrival Date: 05/15/2020 Time: 05:02 Bed 7 Private MD: ED Physician Jorge Rowe HPI: 05/15 05:04 This 80 yrs old Female presents to ER via Unassigned with complaints of rn Productive Cough, Shortness Of Breath. 05:04 The patient or guardian reports cough, difficulty breathing. Onset: The rn symptoms/episode began/occurred 4 day(s) ago. Severity of symptoms: At their worst the symptoms were mild, in the emergency department the symptoms are unchanged. The patient has experienced similar episodes in the past. The patient has not recently seen a physician. Reports 4 days of productive cough and sob, EMS reports original O2 sat 79%, improved with nebulizer/steroids and oxygen, currently on 4L, home O2 is 2L, patient reports feels better, but not back to baseline. Denies chest pain/hemoptysis/loss of taste or smell/diarrhea/abd pain.. 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 - Social history:: Smoking status: Patient denies any tobacco usage or history of. - Family history:: not pertinent. - Hospitalizations: : No recent hospitalization is reported. ROS: 05:04 Constitutional: Negative for fever, chills, and weight loss, Eyes: Negative for injury, rn pain, redness, and discharge, Neck: Negative for injury, pain, and swelling, Cardiovascular: Negative for chest pain, palpitations, and edema, Respiratory: + cough and sob Abdomen/GI: Negative for abdominal pain, nausea, vomiting, diarrhea, and constipation, MS/Extremity: Negative for injury and deformity, Skin: Negative for injury, rash, and discoloration, Neuro: Negative for headache, numbness, tingling, and seizure. Exam: 05:11 Constitutional: This is a well developed, well nourished patient who is awake, alert, rn mild tachypnea Head/Face: Normocephalic, atraumatic. ENT: no stridor Cardiovascular: Regular rate and rhythm. No pulse deficits. Respiratory: + mild tachypnea, no retractions, diminished at bases with wheezing Abdomen/GI: soft, non-tender MS/ Extremity: Pulses equal, no cyanosis. Neurovascular intact. Full, normal range of motion. Equal circumference. Neuro: Awake and alert, GCS 15 05:58 ECG was reviewed by the Attending Physician. rn Vital Signs: 05:03 BP 193 / 90; Pulse 76; Temp 96.2; Pulse Ox 100% on 3 lpm NC; tt3 05:36 Resp 18; mg2 08:00 BP 180 / 84; Pulse 94; Resp 28; Temp 97.8; Pulse Ox 97% on 4 lpm NC; Pain 0/10; jr10 MDM: 05:03 Patient medically screened. rn 06:08 Differential Diagnosis: Influenza Upper Respiratory Infection Viral Syndrome Pneumonia rn Other COVID. Data reviewed: vital signs, nurses notes, lab test result(s), EKG, radiologic studies, plain films, and as a result, I will admit patient. Counseling: I had a detailed discussion with the patient and/or guardian regarding: the historical points, exam findings, and any diagnostic results supporting the discharge/admit diagnosis, lab results, radiology results, the need for further work-up and treatment in the hospital. Response to treatment: the patient's symptoms have mildly improved after treatment, and as a result, I will admit patient. Admission orders: after a detailed discussion of the patient's condition and case, the admit orders are written by me. ED course: Pt with COPD exacerbation, clinical symptoms of pneumonia, abx ordered, + increased oxygen requirement, COVID sent, will admit to Dr. Montgomery.. 05/15 05:04 Order name: Blood Culture Adult (2) rn 05/15 05:04 Order name: BMP rn 05/15 05:04 Order name: C-Reactive Protein rn 05/15 05:04 Order name: CBC with Diff rn 05/15 05:04 Order name: COVID-19 rn 05/15 05:04 Order name: D-Dimer rn 05/15 05:04 Order name: Ferritin; Complete Time: 06:32 rn 05/15 05:04 Order name: Flu; Complete Time: 06:07 rn 05/15 05:04 Order name: Lactate; Complete Time: 05:45 rn 04 05:04 Order name: Procalcitonin; Complete Time: 11:39 rn 0804 05:04 Order name: PT-INR; Complete Time: 05:45 rn 05/15 05:04 Order name: Ptt, Activated; Complete Time: 05:45 rn 05/15 05:04 Order name: Strep; Complete Time: 06:07 rn 05/15 05:04 Order name: Troponin (emerg Dept Use Only); Complete Time: 06:32 rn 05/15 05:04 Order name: CXR XRAY rn 05/15 05:04 Order name: EKG; Complete Time: 05:05 rn 05/15 05:04 Order name: Cardiac monitoring; Complete Time: 05:11 rn 05/15 05:04 Order name: Droplet/Contact Precautions; Complete Time: 05:35 rn 05/15 05:04 Order name: EKG - Nurse/Tech; Complete Time: 05:35 rn 05/15 05:04 Order name: IV Start; Complete Time: 05:35 rn 05/15 05:04 Order name: Blood Culture EDMS 05/15 05:04 Order name: Basic Metabolic Panel; Complete Time: 06:32 EDMS 05/15 05:04 Order name: C-Reactive Protein; Complete Time: 06:32 EDMS 05/15 05:04 Order name: CBC with Automated Diff; Complete Time: 05:45 EDMS 05/15 05:04 Order name: CORONAVIRUS EDMS 05/15 05:04 Order name: D-Dimer; Complete Time: 05:45 EDMS 05/15 05:53 Order name: Throat Culture EDMS 05/15 10:41 Order name: Diet Heart Healthy; Complete Time: 10:41 bd 05/15 05:04 Order name: Labs collected and sent; Complete Time: 05:35 rn 05/15 05:04 Order name: O2 Per Protocol; Complete Time: 05:35 rn 05/15 05:04 Order name: O2 Sat Monitoring; Complete Time: 05:11 rn EC:58 Rate is 79 beats/min. Rhythm is regular. QRS [place] is Normal. CT interval is normal. QRS rn interval is normal. QT interval is normal. No Q waves. T waves are Normal. No ST changes noted. Clinical impression: Normal ECG. Interpreted by me. Reviewed by me. Administered Medications: 06:12 Drug: LevaQUIN 750 mg Volume: 150 ml; Route: IVPB; Infused Over: 90 mins; Site: right mg2 hand; 07:40 Follow up: Response: No adverse reaction; IV Status: Completed infusion jr10 Disposition: 05/15/20 06:10 Hospitalization ordered by [facility] for Inpatient Admission. Preliminary diagnosis are Chronic obstructive pulmonary disease with acute lower respiratory infection, Pneumonia, unspecified organism. - Bed requested for Telemetry/MedSurg (Inpatient). - Status is Inpatient Admission. jr10 - Condition is Stable. - Problem is new. - Symptoms have improved. Signatures: Dispatcher [employer] EDMS Precious Garcia RN RN Renea Joiner RN RN Evangelist Harper RN Jorge Saavedra MD MD rn Attema, Lan, INTERNET MEDIA PLANNER-C INTERNET MEDIA PLANNER-Cla1 Derrek Beasley RN RN mg2 Chandni Reis, RN RN jr10 Corrections: (The following items were deleted from the chart) 05:12 05:04 Constitutional: Negative for fever, chills, and weight loss, rn rn 06:25 06:10 Hospitalization Ordered by Yunior Montgomery MD for Inpatient Admission. Preliminary mw diagnosis is Chronic obstructive pulmonary disease with acute lower respiratory infection; Pneumonia, unspecified organism. Bed requested for Telemetry/MedSurg (Inpatient). Status is Inpatient Admission. Condition is Stable. Problem is new. Symptoms have improved. rn 06:55 06:25 05/15/2020 06:10 Hospitalization Ordered by Yunior Montgomery MD for Inpatient rn anesthesiology. Preliminary diagnosis is Chronic obstructive pulmonary disease with acute lower respiratory infection; Pneumonia, unspecified organism. Bed requested for [facility] ER HOLD. Status is Inpatient Admission. Condition is Stable. Problem is new. Symptoms have improved. mw 11:03 06:55 05/15/2020 06:10 Hospitalization Ordered by Prince Noris [facility] for Inpatient dw Admission. Preliminary diagnosis is Chronic obstructive pulmonary disease with acute lower respiratory infection; Pneumonia, unspecified organism. Bed requested for [facility] ER HOLD. Status is Inpatient Admission. Condition is Stable. Problem is new. Symptoms have improved. rn 12:28 11:03 05/15/2020 06:10 Hospitalization Ordered by Prince Noris [facility] for Inpatient jr10 Admission. Preliminary diagnosis is Chronic obstructive pulmonary disease with acute lower respiratory infection; Pneumonia, unspecified organism. Bed requested for Telemetry/MedSurg (Inpatient). Status is Inpatient Admission. Condition is Stable. Problem is new. Symptoms have improved. dw
--- NOTE | 2020-05-15 06:10 | ER ---
Nurse's Notes [facility] Loc Name: Michelle Benson Age: 80 yrs Sex: Female : 1940 Arrival Date: 05/15/2020 Time: 05:02 Bed 7 Private MD: Diagnosis: Chronic obstructive pulmonary disease with acute lower respiratory infection;Pneumonia, unspecified organism Presentation: 05/15 05:04 Chief complaint: EMS states: pt complaining of having SOB with productive cough that is sg green and yellow as well, denies fever/chills/N/V/D at this time. Coronavirus screen: Client denies travel out of the [place] in the last 14 days. congestion, cough unrelated to allergies, shortness of breath, The client denies any previous COVID testing. Ebola Screen: Patient negative for fever greater than or equal to 101.5 degrees Fahrenheit, and additional compatible Ebola Virus Disease symptoms Patient denies exposure to infectious person. Patient denies travel to an Ebola-affected area in the 21 days before illness onset. No symptoms or risks identified at this time. Initial Sepsis Screen: Does the patient meet any 2 criteria? No. Patient's initial sepsis screen is negative. Does the patient have a suspected source of infection? Yes: Productive cough/pneumonia. Risk Assessment: Do you want to hurt yourself or someone else? Patient reports no desire to harm self or others. Onset of symptoms was May 15, 2020. 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 - Social history:: Smoking status: Patient denies any tobacco usage or history of. - Family history:: not pertinent. - Hospitalizations: : No recent hospitalization is reported. Screenin:36 Abuse screen: Denies threats or abuse. Denies injuries from another. Nutritional mg2 screening: No deficits noted. Tuberculosis screening: No symptoms or risk factors identified. Fall Risk IV access (20 points). Assessment: 05:37 General: Appears in no apparent distress. comfortable, Behavior is calm, cooperative. mg2 Pain: Denies pain. Neuro: Level of Consciousness is awake, alert, obeys commands, Oriented to person, place, time, situation. Cardiovascular: Rhythm is sinus rhythm. Respiratory: Airway is patent Respiratory effort is even, unlabored, Respiratory pattern is regular, symmetrical. Respiratory: Reports cough that is. GI: No signs and/or symptoms were reported involving the gastrointestinal system. : No signs and/or symptoms were reported regarding the genitourinary system. EENT: No signs and/or symptoms were reported regarding the EENT system. Derm: Skin is intact, is healthy with good turgor, Skin is pink, warm \T\ dry. normal. Musculoskeletal: Circulation, motion, and sensation intact. Capillary refill < 3 seconds. Vital Signs: 05:03 BP 193 / 90; Pulse 76; Temp 96.2; Pulse Ox 100% on 3 lpm NC; tt3 05:36 Resp 18; mg2 08:00 BP 180 / 84; Pulse 94; Resp 28; Temp 97.8; Pulse Ox 97% on 4 lpm NC; Pain 0/10; jr10 ED Course: 05:02 Patient arrived in ED. sg 05:03 Jorge Rowe MD is Attending Physician. rn 05:04 Arm band placed on. sg 05:10 Derrek Beasley, AILYN is Primary Nurse. mg2 05:25 Inserted saline lock: 20 gauge in right antecubital area, using aseptic technique. mg2 Blood collected. 05:34 Triage completed. sg 05:36 No provider procedures requiring assistance completed. mg2 05:36 Maintain EMS IV. Dressing intact. Good blood return noted. Site clean \T\ dry. Gauge \T\ mg 2 site: 20 \T\ RH. 05:37 Patient has correct armband on for positive identification. classroom monitor on. Pulse mg2 ox on. NIBP on. Door closed. 06:09 Yunior Montgomery MD is Hospitalizing Provider. rn 06:38 CXR XRAY In Process Unspecified. EDMS 06:55 Hospitalizing Provider role handed off by Yunior Montgomery MD rn 06:55 Prince Hamm MD is Hospitalizing Provider. rn 07:00 Patient admitted, IV remains in place. mg2 08:41 Report received from AILYN Anglin. Pt is ED hold. Please see [facility] charting for jr10 additional documentation and orders. Administered Medications: 06:12 Drug: LevaQUIN 750 mg Volume: 150 ml; Route: IVPB; Infused Over: 90 mins; Site: right mg2 hand; 07:40 Follow up: Response: No adverse reaction; IV Status: Completed infusion jr10 Outcome: 06:10 Decision to Hospitalize by Provider. rn 06:45 Admitted to ER Hold. Please see [facility] for further documentation. mg2 12:28 Patient left the ED. jr10 Signatures: Dispatcher [employer] EDMS Evangelist Box RN RN Jorge Rowe MD MD rn Gardose, Michele, RN RN [facility] Gerald Devries 3 Chandni Reis RN RN jr10
[2020-05-15 06:31] LABS: C-Reactive Protein < 2.90 mg/L (<3.00)
[2020-05-15 09:00] VITALS: BMI 21.5
[2020-05-15] MEDS ORDERED: ALBUTEROL 2.5 MG/3 ML NEB SOL NEB PRN (10:11)
[2020-05-15] MEDS ORDERED: ACETAMINOPHEN 500 MG TAB PO PRN (10:11)
[2020-05-15] MEDS: METHYLPREDNISOLONE 40 MG INJ IV SCH ×2 (10:11→17:12)
[2020-05-15] MEDS ORDERED: IPRATROPIUM BROM 0.5MG/2.5ML NEB PRN (10:11)
[2020-05-15] MEDS ORDERED: ONDANSETRON 4 MG/2 ML VIAL IV PRN (10:11)
--- NOTE | 2020-05-15 11:01 | EKG ---
Test Date: 2020-05-15 Test Time: 05:31:40 Retort Loader: MEASUREMENT RESULTS: Intervals: Rate: 79 TX: 150 QRSD: 84 QT: 398 QTc: 456 [place]: P: 62 TX: 150 QRS: 65 T: 74 INTERPRETIVE STATEMENTS: Normal sinus rhythm Anterior infarct, age undetermined Abnormal ECG Compared to ECG 04/05/2019 02:14:15 Myocardial infarct finding now present Electronically Signed On 05-15-20 11:00:48 CDT by Randall Urias
--- NOTE | 2020-05-15 12:08 | P.HP ---
Certification for Inpatient Patient admitted to: Observation With expected LOS: <2 Midnights Practitioner: I am a practitioner with admitting privileges, knowledge of patient current condition, hospital course, and medical plan of care. Services: Services provided to patient in accordance with Admission requirements found in Title 42 Section 412.3 of the Code of Federal Regulations Patient History Date of Service: 05/15/20 Primary Care Provider: Beatriz Reason for admission: COPD exacerbation History of Present Illness: 80-year-old female with medical history of COPD on chronic home oxygen therapy, CHF, hypertension, CAD, PVD, hypothyroidism presents the emergency department for worsening shortness breath of the course the last 2-3 days. Patient reports that she has been feeling well a is, increased work of breathing for the last 2 3 days and that she has been needing more oxygen than normal. Patient's room air saturations in the emergency department were in 80s. Patient does have home oxygen therapy at 2 3 L. Patient appears to be saturating okay on to 3 L per nasal cannula at this time. ED provider wishes to admit patient for further evaluation management. When I saw the patient in the emergency department she was on nasal cannula but states she does feel very short of breath. Allergies codeine Allergy (Verified 01/10/18 02:21) Unknown perindopril erbumine [From Aceon] Allergy (Verified 01/10/18 02:21) UNKNOWN Home Medications: Acetaminophen [Acetaminophen ER] 650 mg PO PRN PRN 09/03/18 Albuterol Inhaler [Ventolin Inhaler*] 2 puff IH Q4H PRN 09/03/18 Arformoterol Tartrate [Brovana] 2 ml NEB PRN PRN 09/03/18 Buproprion S.r. [Wellbutrin Sr*] 100 mg PO BID 09/03/18 Citalopram [Celexa*] 40 mg PO DAILY 09/03/18 Clopidogrel Bisulfate [Plavix*] 75 mg PO DAILY 09/03/18 Hydralazine [Apresoline*] 25 mg PO DAILY PRN 09/03/18 Ipratropium/Albuterol Sulfate [Iprat-Albut 0.5-3(2.5) mg/3 ml] 3 ml PO QID PRN 09/03/18 Levothyroxine [Synthroid*] 100 mcg PO [id number] 09/03/18 Losartan Potassium [Cozaar] 100 mg PO DAILY 09/03/18 Metoprolol Succinate [Toprol Xl*] 25 mg PO DAILY 09/03/18 Pantoprazole Sodium [Protonix] 40 mg PO DAILY 09/03/18 Pregabalin [Lyrica*] 75 mg PO DAILY 09/03/18 Roflumilast [Daliresp*] 500 mcg PO DAILY 09/03/18 Rosuvastatin [Crestor*] 10 mg PO BEDTIME 09/03/18 Spironolactone [Aldactone] 50 mg PO BID 09/03/18 Tiotropium [place] [Spiriva Respimat] 2 puff PO DAILY 09/03/18 Tramadol HCl [Ultram] 50 mg PO Q6HP PRN 09/03/18 Zolpidem Tartrate [Ambien*] 5 mg PO BEDTIME PRN 09/03/18 levoFLOXacin [Levaquin*] 500 mg PO DAILY #7 tab 09/07/18 - Past Medical/Surgical History Has patient received pneumonia vaccine in the past: Yes Diabetic: No -: History of breast cancer -: History of throat cancer -: Hypertension -: Hypothyroidism -: COPD, steroid and oxygen-dependent -: Peripheral vascular disease -: Carotid arterial disease -: CHF -: Hyperlipidemia -: Obstructive sleep apnea -: Neuropathy -: Tobacco abuse -: Hysterectomy -: Hemorrhoidectomy -: Radiation to the vocal cords -: Stents to the lower extremity and carotid -: Bilateral eye surgery -: Left-sided mastectomy -: chemotherapy Psychosocial/ Personal History: Patient is . She has children. She does not work. - Family History Father -: Heart disease Mother -: Cancer Sister -: Cancer Notes: Brother -: Heart disease Notes: - Social History Smoking Status: Current some day smoker Alcohol use: No CD- Drugs: No Caffeine use: No Place of Residence: Home Review of Systems 10-point ROS is otherwise unremarkable Respiratory: Cough, Shortness of Breath Physical Examination - Vital Signs Temperature: 97.8 F Blood Pressure: 180/83 Pulse: 94 Respirations: 28 Pulse Ox (%): 97 - Physical Exam General: Alert, In no apparent distress, Oriented x3 HEENT: Atraumatic, Normocephalic, PERRLA, Mucous membr. moist/pink Neck: Supple Respiratory: Clear to auscultation bilaterally, Normal air movement Cardiovascular: No edema, Regular rate/rhythm Gastrointestinal: Normal bowel sounds, Soft and benign Musculoskeletal: No contractures, No erythema, No tenderness Integumentary: No tenderness/swelling, No erythema Neurological: Normal speech, Normal tone - Studies Laboratory Data (last 24 hrs) 05/15/20 05:05: PT 10.7, INR 0.91, APTT 28.7 05/15/20 05:05: WBC 7.5, Hgb 11.3 L, Hct 34.6 L, Plt Count 195 05/15/20 05:05: Sodium 141, Potassium 4.9, BUN 23 H, Creatinine 1.38 H, Glucose 82 Microbiology Data (last 24 hrs): 05/15/20 05:05 Throat Group A Streptococcus Rapid Screen - Final 05/15/20 05:05 Nasopharnyx Influenza Type A Antigen Screen - Final 05/15/20 05:05 Nasopharnyx Influenza Type B Antigen Screen - Final Assessment and Plan - Plan Assessment Acute on chronic respiratory failure with hypoxia secondary to COPD on chronic home oxygen therapy Chronic diastolic congestive heart failure Hypertension Hyperlipidemia CAD PVD Hypothyroidism Plan Acute on chronic respiratory failure with hypoxia secondary to COPD on chronic home oxygen therapy: No pneumonia identified on imaging. Continue with oxygen therapy, IV steroids, IV antibiotics this time. Blood cultures obtained in the emergency department. Pulmonology has been consulted on this case. Appreciate further input from pulmonology. DVT prophylaxis with heparin 5000 units al bcutaneous twice daily. Anticipate clinical improvement next 24-48 hr. Chronic diastolic congestive heart failure: Continue patient's home medications. No significant overload at this time. Hypertension: Obtain and continue patient's home medications. Hyperlipidemia: Obtain and continue patient's home medications. CAD: Obtain and continue patient's home medications. PVD: Obtain and continue patient's home medications. Hypothyroidism: Obtain and continue patient's home medications. Discharge Plan: Home Plan to discharge in: 24 Hours - Advance Directives Does patient have a Living Will: Yes Does patient have a Durable POA for Healthcare: Yes - Code Status/Comfort Care Code Status Assessed: Yes (Patient is full code) Critical Care: No Time Spent Managing Pts Care (In Minutes): 55
[2020-05-15] MEDS: HEPARIN 5000 UNIT/ML 1 ML VIAL SQ SCH (21:03)
[2020-05-15] MEDS ORDERED: TRAMADOL HCL 50 MG TAB PO PRN (22:08)
[2020-05-15] MEDS ORDERED: HYDRALAZINE HCL 25 MG TABLET PO PRN (22:08)
[2020-05-15] MEDS ORDERED: FUROSEMIDE 20 MG TABLET PO PRN (22:08)
[2020-05-15] MEDS ORDERED: ZOLPIDEM TARTRATE 5 MG TABLET PO PRN (22:08)
[2020-05-16] MEDS: METHYLPREDNISOLONE 40 MG INJ IV SCH ×2 (00:10→09:34)
[2020-05-16 05:58] LABS: Absolute Lymphocytes (CBC) 0.4 K/uL (0.7-4.9); Basophils % 0.3 % (0-1.3); Hematocrit 35.6 % (36.0-45.0); Lymphocytes % 3.7 % (15.3-44.8); MPV 8.1 fL (7.6-11.3)
[2020-05-16] MEDS ORDERED: LEVOTHYROXINE SOD 0.1 MG TAB PO SCH (06:00)
[2020-05-16 06:09] LABS: Potassium 4.6 mmol/L (3.5-5.1)
[2020-05-16] MEDS ORDERED: PANTOPRAZOLE 40MG TABLET PO SCH (06:30)
[2020-05-16] MEDS ORDERED: Levofloxacin500mg IV 500 MG/100 ML BAG IV SCH (07:00)
[2020-05-16 07:50] LABS: Blood Morphology Comment NOT SEEN (NOT SEEN); Platelet Estimate ADEQ; Urine White Blood Cell Casts OK
--- NOTE | 2020-05-16 08:40 | P.CNS ---
Date of Consult: 05/16/20 Primary Care Provider: Beatriz Chief Complaint: COPD exacerbation History of Present Illness: patient is 80 years of age well known to me with a history of severe terminal COPD she has done very well for quite some time became sick over the past 3 days was became very anxious about her 's been having more shortness of breath denies any fever chills has some productive cough compliant with all her medication she is on maximum treatment a blood pressure is little elevated she also has noninvasive ventilator at home Allergies codeine Allergy (Verified 01/10/18 02:21) Unknown perindopril erbumine [From Aceon] Allergy (Verified 01/10/18 02:21) UNKNOWN Home Medications: Acetaminophen [Acetaminophen ER] 650 mg PO PRN PRN 09/03/18 Albuterol Inhaler [Ventolin Inhaler*] 2 puff IH Q4H PRN 09/03/18 Buproprion S.r. [Wellbutrin Sr*] 100 mg PO BID 09/03/18 Citalopram [Celexa*] 40 mg PO DAILY 09/03/18 Hydralazine [Apresoline*] 25 mg PO DAILY PRN 09/03/18 Ipratropium/Albuterol Sulfate [Iprat-Albut 0.5-3(2.5) mg/3 ml] 3 ml PO QID PRN 09/03/18 Levothyroxine [Synthroid*] 100 mcg PO [id number] 09/03/18 Pantoprazole Sodium [Protonix] 40 mg PO DAILY 09/03/18 Pregabalin [Lyrica*] 75 mg PO BEDTIME 09/03/18 Roflumilast [Daliresp*] 500 mcg PO DAILY 09/03/18 Rosuvastatin [Crestor*] 10 mg PO BEDTIME 09/03/18 Spironolactone [Aldactone] 50 mg PO BID 09/03/18 Tramadol HCl [Ultram] 50 mg PO Q6HP PRN 09/03/18 Zolpidem Tartrate [Ambien*] 5 mg PO BEDTIME PRN 09/03/18 Aspirin Chewable [Aspirin Chewable*] 81 mg PO DAILY 05/15/20 Docusate Sodium [Stool Softener] 50 mg PO DAILY 05/15/20 Fluticasone/Umeclidin/Vilanter [Trelegy Ellipta 100-62.5-25] 1 each IH DAILY 05/15/20 Furosemide [Lasix] 20 mg PO DAILY PRN 05/15/20 Losartan Potassium [Cozaar] 50 mg PO DAILY 05/15/20 Metoprolol Tartrate [Lopressor] 12.5 mg PO BID 05/15/20 predniSONE [Deltasone] 5 mg PO DAILY 05/15/20 - Past Medical/Surgical History Diabetic: No -: History of breast cancer -: History of throat cancer -: Hypertension -: Hypothyroidism -: COPD, steroid and oxygen-dependent -: Peripheral vascular disease -: Carotid arterial disease -: CHF -: Hyperlipidemia -: Obstructive sleep apnea -: Neuropathy -: Tobacco abuse -: Hysterectomy -: Hemorrhoidectomy -: Radiation to the vocal cords -: Stents to the lower extremity and carotid -: Bilateral eye surgery -: Left-sided mastectomy -: chemotherapy Psychosocial/ Personal History: Patient is . She has children. She does not work. - Family History Father Medical History: Heart disease Mother Medical History: Cancer Sister Medical History: Cancer Notes: Brother Medical History: Heart disease Notes: - Social History Smoking Status: Current every day smoker Alcohol use: No CD- Drugs: No Caffeine use: No Place of Residence: Home Review of Systems 10-point ROS is otherwise unremarkable General: Weakness Respiratory: Cough, Shortness of Breath Physical Examination Temp Pulse Resp BP Pulse Ox 97.1 F 87 20 183/77 H 97 05/16/20 04:00 05/16/20 06:05 05/16/20 04:00 05/16/20 06:05 05/16/20 04:00 General: Alert, Oriented x3 Respiratory: Expiratory wheezes Cardiovascular: No edema, Regular rate/rhythm Capillary refill: >2 Seconds Gastrointestinal: Soft and benign - Problems (1) COPD exacerbation Onset Date: 02/17/17 Current Visit: No Status: Acute Plan: patient is 80 years of age admitted with COPD exacerbation a blood pressure is little elevated chest x-ray shows some interstitial changes chemistries reviewed patient has a noninvasive ventilator at home maximum medical therapy can be discharged home on prednisone 10 mg twice a day for a week and then reduce to 10 mg once a day the antibiotic levofloxacin spina mg a day for 7 days sputum cultures follow-up with me in a week oxygenation vital signs satisfactory patient has a lot of anxiety the been stable for a while
--- NOTE | 2020-05-16 08:52 | P.DS ---
Admission Date: 05/15/20 Discharge Date: 05/16/20 Primary Care Provider: Beatriz Disposition: ROUTINE DISCHARGE Discharge Condition: FAIR Reason for Admission: COPD exacerbation Consultations: Pulmonology- Dr. Charles Procedures: Chest Xray- No acute findings, please see report for further details Brief History of Present Illness: 80-year-old female with medical history of COPD on chronic home oxygen therapy, CHF, hypertension, CAD, PVD, hypothyroidism presents the emergency department for worsening shortness breath of the course the last 2-3 days. Patient reports that she has been feeling well a is, increased work of breathing for the last 2 3 days and that she has been needing more oxygen than normal. Patient's room air saturations in the emergency department were in 80s. Patient does have home oxygen therapy at 2 3 L. Patient appears to be saturating okay on to 3 L per nasal cannula at this time. ED provider wishes to admit patient for further evaluation management. When I saw the patient in the emergency department she was on nasal cannula but states she does feel very short of breath. Hospital Course: 80-year-old female with medical history of COPD on chronic home oxygen therapy, CHF, hypertension, CAD, PVD, hypothyroidism presents the emergency department for worsening shortness breath of the course the last 2-3 days. Patient reports that she has been feeling ill as well, increased work of breathing for the last 2 3 days and that she has been needing more oxygen than normal. Patient was admitted to the hospital overnight and continued with her nasal cannula oxygen at this same flow rate and that she has at home as well as CPAP at night which also has. Patient did very well overnight, this morning patient is sitting up at bedside eating breakfast tolerating nasal cannula very well, no respiratory distress noted. Pulmonology has also seen the patient, very familiar with this patient. Recommendations include increasing steroids to prednisone 10 mg p.o. b.i.d. for 1 week as well as Levaquin 500 mg p.o. once daily for 1 week. Patient is to follow up with pulmonology on outpatient basis. Patient is amenable to this plan and appears to be doing well at this time. Also recommend follow up with primary care doctor and cardiology on outpatient basis. Vital Signs/Physical Exam: Temp Pulse Resp BP Pulse Ox 97.1 F 87 20 183/77 H 97 05/16/20 04:00 05/16/20 06:05 05/16/20 04:00 05/16/20 06:05 05/16/20 04:00 General: Alert, In no apparent distress HEENT: Atraumatic, PERRLA, EOMI Neck: Supple, JVD not distended Respiratory: Normal air movement, Diminished Cardiovascular: Regular rate/rhythm, Normal S1 S2 Capillary refill: <2 Seconds Gastrointestinal: Normal bowel sounds, No tenderness Musculoskeletal: No tenderness Integumentary: No rashes Neurological: Normal speech, Normal tone, Normal affect Lymphatics: No axilla or inguinal lymphadenopathy Laboratory Data at Discharge: WBC 10.5 K/uL (4.3-10.9) D 05/16/20 05:33 Hgb 12.0 g/dL (12.0-15.0) 05/16/20 05:33 Hct 35.6 % (36.0-45.0) L 05/16/20 05:33 Plt Count 196 K/uL (152-406) 05/16/20 05:33 PT 10.7 SECONDS (9.5-12.5) 05/15/20 05:05 INR 0.91 05/15/20 05:05 APTT 28.7 SECONDS (24.3-36.9) 05/15/20 05:05 Sodium 142 mmol/L (136-145) 05/16/20 05:33 Potassium 4.6 mmol/L (3.5-5.1) 05/16/20 05:33 BUN 27 mg/dL (7-18) H 05/16/20 05:33 Creatinine 1.11 mg/dL (0.55-1.3) 05/16/20 05:33 Glucose 155 mg/dL (74-106) H 05/16/20 05:33 Home Medications: Acetaminophen [Acetaminophen ER] 650 mg PO PRN PRN 09/03/18 Albuterol Inhaler [Ventolin Inhaler*] 2 puff IH Q4H PRN 09/03/18 Buproprion S.r. [Wellbutrin Sr*] 100 mg PO BID 09/03/18 Citalopram [Celexa*] 40 mg PO DAILY 09/03/18 Hydralazine [Apresoline*] 25 mg PO DAILY PRN 09/03/18 Ipratropium/Albuterol Sulfate [Iprat-Albut 0.5-3(2.5) mg/3 ml] 3 ml PO QID PRN 1 11/03/17 Levothyroxine [Synthroid*] 100 mcg PO ASSNN3FT 09/03/18 Pantoprazole Sodium [Protonix] 40 mg PO DAILY 09/03/18 Pregabalin [Lyrica*] 75 mg PO BEDTIME 09/03/18 Roflumilast [Daliresp*] 500 mcg PO DAILY 09/03/18 Rosuvastatin [Crestor*] 10 mg PO BEDTIME 09/03/18 Spironolactone [Aldactone] 50 mg PO BID 09/03/18 Tramadol HCl [Ultram] 50 mg PO Q6HP PRN 09/03/18 Zolpidem Tartrate [Ambien*] 5 mg PO BEDTIME PRN 09/03/18 Aspirin Chewable [Aspirin Chewable*] 81 mg PO DAILY 05/15/20 Docusate Sodium [Stool Softener] 50 mg PO DAILY 05/15/20 Fluticasone/Umeclidin/Vilanter [Trelegy Ellipta 100-62.5-25] 1 each IH DAILY 05/15/20 Furosemide [Lasix*] 20 mg PO DAILY PRN 05/15/20 Losartan Potassium [Cozaar*] 50 mg PO DAILY 05/15/20 Metoprolol Tartrate [Lopressor*] 12.5 mg PO BID 05/15/20 predniSONE [Deltasone] 5 mg PO DAILY 05/15/20 levoFLOXacin [Levaquin] 500 mg PO DAILY #7 tab 05/16/20 predniSONE [Deltasone*] 10 mg PO BID 7 Days #14 tab 05/16/20 New Medications: predniSONE [Deltasone*] 10 mg PO BID 7 Days #14 tab levoFLOXacin [Levaquin] 500 mg PO DAILY #7 tab Patient Discharge Instructions: 1. You need to follow up with the primary care doctor in 1-2 weeks to follow up this hospitalization. 2. Please follow up with pulmonology on outpatient basis as well. 3. 80-year-old female with medical history of COPD on chronic home oxygen therapy, CHF, hypertension, CAD, PVD, hypothyroidism presents the emergency department for worsening shortness breath of the course the last 2-3 days. Patient reports that she has been feeling ill as well, increased work of breathing for the last 2 3 days and that she has been needing more oxygen than normal. Patient was admitted to the hospital overnight and continued with her nasal cannula oxygen at this same flow rate and that she has at home as well as CPAP at night which also has. Patient did very well overnight, this morning patient is sitting up at bedside eating breakfast tolerating nasal cannula very well, no respiratory distress noted. Pulmonology has also seen the patient, very familiar with this patient. Recommendations include increasing steroids to prednisone 10 mg p.o. b.i.d. for 1 week as well as Levaquin 500 mg p.o. once daily for 1 week. Patient is to follow up with pulmonology on outpatient basis. Patient is amenable to this plan and appears to be doing well at this time. Also recommend follow up with primary care doctor and cardiology on outpatient basis. Diet: AHA Activity: Fall precautions Time spent managing pt's care (in minutes): 55
[2020-05-16 08:59] VITALS: BP 129/61; TEMP 97
[2020-05-16] MEDS ORDERED: BUPROPRION HCL S.R. 150MG TAB PO SCH (09:00)
[2020-05-16] MEDS ORDERED: HOME MED 1 EA UNK (Fluticasone/Umeclidin/Vilanter [Trelegy Ellipta 100-62.5-25] 1 EACH) IH SCH (09:00)
[2020-05-16] MEDS ORDERED: LOSARTAN POTASSIUM 50 MG TABLET PO SCH (09:00)
[2020-05-16] MEDS ORDERED: ROFLUMILAST 500 MCG TABLET PO SCH (09:00)
[2020-05-16] MEDS ORDERED: DOCUSATE SODIUM 50 MG PO SCH (09:00)
[2020-05-16] MEDS ORDERED: SPIRONOLACTONE 25 MG TABLET PO SCH (09:00)
[2020-05-16] MEDS ORDERED: METOPROLOL TAR 25 MG TAB PO SCH (09:00)
[2020-05-16] MEDS ORDERED: ASPIRIN 81 MG CHEWABLE TABLET PO SCH (09:00)
--- NOTE | 2020-05-16 09:14 | RAD REPORT ---
EXAM DESCRIPTION: XR Chest, 1 View CLINICAL HISTORY: Dyspnea;Cough;COPD TECHNIQUE: Frontal view of the chest. COMPARISON: No relevant prior studies available. FINDINGS: Lungs: There is very mild bronchovascular thickening without consolidation. Pleural space: Unremarkable. No pneumothorax. Heart: Unremarkable. No cardiomegaly. Mediastinum: Unremarkable. Bones/joints: Unremarkable. IMPRESSION: Mild bronchial thickening may be acute and/or chronic. No pneumonia. Electronically signed by: Michelle Burgos MD 05/15/2020 6:45 AM CDT Due to temporary technical issues with the PACS/Fluency reporting system, reports are being signed by the in house radiologist without review as a courtesy to ensure prompt reporting. The interpreting r adiologist is fully responsible for the content of the report.
[2020-05-16] MEDS: HEPARIN 5000 UNIT/ML 1 ML VIAL SQ SCH (09:35)
[2020-05-16 10:53] VITALS: O2SAT 93
[2020-05-16] MEDS ORDERED: ROSUVASTATIN 10 MG TAB PO SCH (21:00)
[2020-05-16] MEDS ORDERED: PREGABALIN 75 MG CAP PO SCH (21:00)
== END 2020-05-16 10:25 | disposition home or self-care (01) | DRG 190 ==
LOC: ER 05:01 → ERHOLD 06:51 → 4TH 11:20 → 2ND 18:15
PROVIDERS: ADMIT Family Medicine; ATTEND Internal Medicine
DX: J44.1 Chronic obstructive pulmonary disease with (acute) exacerbation (principal); J96.21 Acute and chronic respiratory failure with hypoxia; I50.32 Chronic diastolic (congestive) heart failure; I11.0 Hypertensive heart disease with heart failure; I73.9 Peripheral vascular disease, unspecified; K21.9 Gastro-esophageal reflux disease without esophagitis; I25.10 Atherosclerotic heart disease of native coronary artery without angina pectoris; F17.200 Nicotine dependence, unspecified, uncomplicated; E78.5 Hyperlipidemia, unspecified; E03.9 Hypothyroidism, unspecified; Z88.5 Allergy status to narcotic agent; Z88.8 Allergy status to other drugs, medicaments and biological substances; Z79.02 Long term (current) use of antithrombotics/antiplatelets; Z79.890 Hormone replacement therapy; Z79.899 Other long term (current) drug therapy; Z85.3 Personal history of malignant neoplasm of breast; Z85.89 Personal history of malignant neoplasm of other organs and systems; Z90.710 Acquired absence of both cervix and uterus; Z99.81 Dependence on supplemental oxygen; Z20.828 Contact with and (suspected) exposure to other viral communicable diseases
CPT/HCPCS: 36415; 71045; 80048; 82728; 83605; 84145; 84484; 85025; 85379; 85610; 85730; 86140; 87040; 87070; 87081; 87804; 93005; 94660; 94760; 96365; 99285; J1644; J2920; U0002

== ENCOUNTER 2020-10-10 06:26 | Inpatient (IN) | payer OTHER ==
--- OUTSIDE RECORDS SUMMARY | 2020-10-10 06:28 | XMS REPORT | Clinical Summary ---
:1940 Author Organization [facility] Address [address] [place] [address] Care Team Providers Name Role Phone MD [...] needed. rosuvastatin Take 10 mg by 0 Act carlos (CRESTOR) 10 MG mouth daily. tablet roflumilast Take 500 mcg by 0 Ac tive (DALIRESP) 500 mcg mouth daily. tablet zolpidem (AMBIEN) Take 5 mg by 0 Active 10 mg tablet mouth nightly as needed for sleep. LYRICA 75 mg Take 75 mg by 0 Act carlos capsule mouth daily. 8 buPROPion SR Take 100 mg by 0 Ac tive (WELLBUTRIN SR) mouth 2 (two) 9 100 MG 12 hr times a day. tablet spironolactone Take 50 mg by 0 A ctive (ALDACTONE) 25 MG mouth 2 (two) 9 tablet times a day. tiotropium bromide Inhale 2 puffs 0 Active (SPIRIVA RESPIMAT daily. INHL) aspirin (ECOTRIN) Take 81 mg by 0 Active 81 MG enteric mouth daily. coated tablet albuterol (PROAIR Inhale 2 puffs 0 Active HFA,PROVENTIL every 4 (four) HFA,VENTOLIN HFA) hours as needed 90 mcg/actuation for wheezing. inhaler losartan (COZAAR) Take 50 mg by 0 Active 50 MG tablet mouth daily. citalopram Take 40 mg by 0 Activ e (CeleXA) 40 MG mouth daily. tablet fluticasone-umecli Inhale. 1 puff 0 Active din-vilanter daily (Trelegy Ellipta) 100-62.5-25 mcg blister with device acetaminophen Take 650 mg by 0 A ctive (TYLENOL) 650 MG 8 mouth as needed hr tablet for mild pain. furosemide (LASIX) Take 20 mg by 0 Active 20 mg tablet mouth as needed. hydrALAZINE TAKE ONE TABLET 90 tablet 0 Ac tive (APRESOLINE) 25 MG BY MOUTH DAILY 0 tablet NEEDED (SYSTOLIC FOR BLOOD PRESSURE >160) clopidogreL TAKE ONE TABLET 90 tablet 0 Ac tive (PLAVIX) 75 mg BY MOUTH DAILY 0 tablet pantoprazole TAKE ONE TABLET 90 tablet 0 A ctive (PROTONIX) 40 MG BY MOUTH DAILY 0 EC tabletIndications: Chest pain, unspecified type metoprolol TAKE ONE TABLET 90 tablet 0 Act carlos tartrate BY MOUTH DAILY 0 (LOPRESSOR) 25 mg tablet arformoterol Take 15 mcg by 0 03/26/20 Di scontinued (BROVANA) 15 mcg/2 nebulization 2 20 (Discontinued mL solution for (two) times a by another nebulization day. clinici an) hydrALAZINE Take 1 tablet 90 tablet 3 07/30/20 Disc ontinued (APRESOLINE) 25 MG (25 mg total) by 7 20 tablet mouth daily as needed (sytolic bp >160). metoprolol Take 0.5 tablets 180 tablet 2 07/04/20 D iscontinued tartrate (12.5 mg total) 9 20 (LOPRESSOR) 25 mg by mouth 2 (two) tablet times a day. clopidogrel Take 75 mg by 0 12/09/19 Disc ontinued (PLAVIX) 75 mg mouth daily. 20 tablet nicotine (NICODERM Place 1 patch on 0 03/12 02/28 Discontinued CQ) 7 mg/24 hr the skin daily. 20 (Discontinued by another clinician) pantoprazole TAKE ONE TABLET 90 tablet 2 05/03/20 D iscontinued (PROTONIX) 40 MG BY MOUTH DAILY 9 20 EC tabletIndications: Chest pain, unspecified type losartan (COZAAR) TAKE ONE TABLET 90 tablet 0 Discontinued 100 MG tablet BY MOUTH DAILY 9 20 clopidogreL TAKE ONE TABLET 90 tablet 0 03/06/20 Di scontinued (PLAVIX) 75 mg BY MOUTH DAILY 0 20 tablet losartan (COZAAR) TAKE ONE TABLET 90 tablet 0 Discontinued 100 MG tablet BY MOUTH DAILY 0 20 clopidogreL TAKE ONE TABLET 90 tablet 0 05/03/20 Di scontinued (PLAVIX) 75 mg BY MOUTH DAILY 0 20 tablet losartan (COZAAR) TAKE ONE TABLET 90 tablet 0 Discontinued 100 MG tablet BY MOUTH DAILY 0 20 ( Dose adjustment ) pantoprazole TAKE ONE TABLET 90 tablet 1 08/10/20 D iscontinued (PROTONIX) 40 MG BY MOUTH DAILY 0 20 EC tabletIndications: Chest pain, unspecified type clopidogreL TAKE ONE TABLET 90 tablet 0 08/07/20 Di scontinued (PLAVIX) 75 mg BY MOUTH DAILY 0 20 tablet metoprolol Take 1 tablet 90 tablet 0 08/31/20 Disco ntinued tartrate (25 mg total) by 0 20 (LOPRESSOR) 25 mg mouth daily. tablet clopidogreL TAKE ONE TABLET 90 tablet 0 08/10/20 Di scontinued (PLAVIX) 75 mg BY MOUTH DAILY 0 20 tablet Active Problems Problem Noted Date Bilateral carotid [...] Follow up in 6 months. CAD in [place] artery 08/19/2016 Bilateral carotid artery disease 08/19/2016 Encounters Date Type Specialty Care Team Description 09/25/2020 Office Visit Cardiovascular Jacqueline Guthrie PAD (pe ripheral artery disease) (HCC) (Primary Dx); MD Ty Bilateral carot id artery stenosis 09/25/2020 Travel 09/24/2020 Abstract Cardiovascular Lauren Graf MA 08/31/2020 Refill Cardiology Jewel Kebede MD Med Refi ll 08/10/2020 Refill Cardiology Jewel Kebede MD Med Refi ll 08/07/2020 Telephone Cardiovascular Jacqueline Guthrie MD 08/07/2020 Refill Cardiology Jewel Kebede MD Med Refi ll 07/30/2020 Telephone Cardiovascular Maria Teresa Cabrera RN 07/28/2020 Refill Cardiology Jewel Kebede MD Med Refi ll 07/03/2020 Refill Cardiology Jewel Kebede MD Med Refi ll 05/03/2020 Refill Cardiology Jewel Kebede MD Med Refi ll 03/29/2020 Travel 03/28/2020 Telemedicine Cardiovascular Jacqueline Guthrie Bilater al carotid artery MD Ty stenosis (Prima [...] Teresa Cabrera RN PAD (peripheral artery disease) ([facility]) (Primary Dx); Bilateral carot id artery stenosis 01/02/2020 Travel 01/02/2020 Telephone Cardiovascular Jacqueline Guthrie MD 12/13/2019 Office Visit Cardiology Jewel Kebede MD PAD (per ipheral artery disease) ([facility]) (Primary Dx); Bilateral carot id artery occlusion; Essential hyper tension 12/12/2019 Refill Cardiology Jewel Kebede MD Med Refi ll 12/08/2019 Refill Cardiology Jewel Kebede MD Med Refi ll after 10/10/2019 Surgical History Surgery Date Site/Laterality Comments CATARACT EXTRACTION Bilateral EXTRACAPSULAR W/ INTRAOCULAR LENS IMPLANTATION BYPASS GRAFT 10/12/1999 - artery bilateral 10/11/2000 leg--Dr. Maycol Russo CARDIAC CATHETERIZATION 01/19/2019 Radial Procedur e: Cv aortogram abdominal aorta; Surgeon: Jewel Kebede MD; Location[facility] Process Pumper Invasive Location; Service: Cardiology; Laterality: Radial; abdominal aorta with run offs poss stent radial access MASTECTOMY 10/12/2013 - Left 10/11/2014 HYSTERECTOMY 10/12/1972 - 10/11/1973 ENDARTERECTOMY, FEMORAL 02/03/2019 Groin/Bilateral Procedur e: COMMON FEMORAL ENDARTER ECTOMY, BILATERAL; Surg rober: Olivia Guthrie MD; Location: [facility] OR; Service: Va scular; Laterality: Seven ateral; Medical devices from this surgery are in the Implants section . Medical History Medical History Date Comments Carotid artery occlusion patient/spouse reports a "stent in the carotid" Cancer ([facility]) breast,skin throat, ear cancer Hyperlipidemia Anesthesia slow to wake up with mastectomy--2012 /HA Dental quaker present dental implan ts CHF (congestive heart failure) ([facility]) [address] Jewel Kebede COPD (chronic obstructive pulmonary BIPA P--managed by Dr. Karthik Charles disease) ([facility]) Acid reflux controlled with med Hypertension controlled with med History of transfusion Hypothyroidism Coronary artery disease managed by Dr. Maciej Kebede Osteoarthritis hands mostly Family History Medical History Relation Name Comments [...] file Not on file Not on file COVID-19 Exposure Response Date Recorded In the last month, have you been in contact with No / Unsure 09/25/2020 7:43 AM MAPPING PILOT someone who was confirmed or suspected to have Coronavirus / COVID-19? Last Filed Vital Signs Vital Sign Reading Time Taken Comments Blood Pressure 182/68 09/25/2020 9:56 AM MAPPING PILOT Pulse 79 09/25/2020 9:56 AM MAPPING PILOT Temperature 36.4 C (97.5 F) 09/25/2020 9:56 AM MAPPING PILOT Respiratory Rate 18 09/25/2020 9:56 AM MAPPING PILOT Oxygen Saturation 92% 09/25/2020 9:56 AM MAPPING PILOT on 2 l iters Inhaled Oxygen Concentration - - Weight 69.4 kg (153 lb) 09/25/2020 9:56 AM MAP[facility] P[facility]OT Height 172.7 cm (5' 8") 09/25/2020 9:56 AM MAPPING PILOT Body Mass Index 23.26 09/25/2020 9:56 AM MAPPING PILOT Plan of Treatment Date Type Specialty Care Team Description 10/08/2021 Appointment Procedural Cardiology 10/08/2021 Appointment Procedural Cardiology 10/08/2021 Appointment Procedural Cardiology 10/08/2021 Office Visit Cardiovascular Jacqueline Guthrie MD [address] [place], [place] [address] [phone] Health Maintenance Due Date Last Done Comments COVID-19 VACCINE (#1) 1957 SHINGLES VACCINES (#1) 1991 65+ PNEUMOCOCCAL VACCINE (1 of 1 - PPSV23) 2006 INFLUENZA VACCINE 05/12/2020 Implants Implanted Type Area [employer] In[employer] Device Shelf Model / Identifier Expiration Serial / Date Lot Graft Vasclr Propaten Thn-Wl Strtch 40cm 8mm - [id number] - [id number] Vascular Right: W L GORE 07/25/2022 [id number] / Implanted: Qty: 1 on 02/03/2019 by Jacqueline Elaine MD at [facility] Graft N/A [id number] / [id number] Patch Vasclr Perph 2x9cm Vascu-Guard - [id number] Vascular N/A: N/A CASTAÑEDA 03/02/2023 [id number] / Implanted: 02/03/2019 at [facility] (Quantity not on file) Graft BIOSCIENCE / [id number] Procedures Procedure Name Priority Date/Time Associated Comments Diagnosis US CAROTID DUPLEX Routine 09/25/2020 10:13 AM Bilateral caroti d Results for this BILATERAL MAPPING PILOT artery stenosis procedure ar e in the results section. US DUPLEX ARTERIAL Routine 09/25/2020 10:13 AM PAD (peripheral Results for this LOWER EXTREMITY MAPPING PILOT artery disease) procedure are in BILATERAL (HCC) the results section. US ANKLE BRACHIAL Routine 09/25/2020 8:32 AM PAD (peripheral Results for this INDEX MAPPING PILOT artery disease) procedure ar e in ([facility]) the results section. CT ANGIOGRAM NECK W Routine 03/21/2020 11:23 AM Bilateral carreon tid Results for this WO CONTRAST CDT [...] CDT artery disease) procedure are in BILATERAL ([facility]) the results section. US CAROTID DUPLEX Routine 03/14/2020 3:09 PM PAD (peripheral Results for this BILATERAL CDT artery disease) procedure ar e in ([facility]) the results Bilateral carotid section. artery stenosis after 10/10/2019 Results Us carotid duplex (09/25/2020 10:13 AM MAPPING PILOT)Only the most recent of2 results within the time period is included. Specimen Narrative Performed At [facility] Carreon tid Duplex Report [id number] [facility], [place] [address] For air quality specialist purposes, the categorization of the degree of the stenosis of this exam is based on criteria described i n the IAC carotid stenosis grading white paper( www.intersocietal.org/Va scular) and in Jolanta Monreal, Sherron Velazquez, et al. Caroti d artery stenosis: arellano-scale and Doppler US diagnosis- -Society of Radiologists in Ultrasound Consensus Conference. Radio logy. 2002 Nov; 229(2):340-6. Pat.Name: JAE BENSON.ID: [id number] .Date: 09/25/2020 Refer.MD: JACQUELINE GUTHRIE MD Exam Time: 8:10:00 AM Study Type:C arotid Age: 4 1940,80Y Sex: FEMALE Sonogrphr: Kiara Nice Rosales CPT - 4: 9388 0 Echo Event ID:[id number] Order ID: [id number] Reason for Study:Known carotid artery st enosis; Stent in the right ICA; Occluded left ICA Procedures: Colorflow, Grayscale/2D, Pul sed wave Doppler Race: C SUMMARY: CAROTID ARTERY SCAN RIGHT: There is calcified plaque in th e common carotid artery. There is hard, calcified and irregular plaqu e noted in the bulb extending into the proximal internal carotid arter y where the stent is not well visualized due to calcified plaque along the wall. The external carotid artery is not seen. Colorflow is disturbed with elevated velocities. There is antegrade flow i n the vertebral artery with turbulent elevated velocities. . Volume flow in the common carotid artery is 435 cc/min. LEFT: There is calcified plaque in the common carotid artery. There is hard and calcified plaque not ed in the bulb extending into the proximal internal and external carot id artery. Colorflow is absent in the internal carotid artery. There is antegrade flow in the vertebral artery. Volume flow in t he common carotid artery is 264 cc/min. PRELIMINARY FINDINGS 1. <70% stenosis right bulb and diversity intern al carotid artery. 2. Right ECA is not seen. 3. Occluded left internal carotid artery . 4. The right vertebral artery demonstrat es antegrade flow with turbulent elevated velocities throughout 5. The left vertebral artery demonstrate s antegrade flow, however the left vertebral artery waveform appears a bnormal and may be suggestive of a pre steal. See the same day RENU and lower extremiti es arterial Duplex exam Patient seen in the clinic by Dr Guthrie PHYSICIAN INTERPRETATION Calcified plaque in the common carotid a rteries, bilaterally. < 70% stenosis right carotid stent ( Bul b to ICA). Left internal carotid artery is occluded . > 50% stenosis right vertebral artery. Left vertebral artery show dampened waveforms with potential early systolic deceleration suggestive of pre steal. Additional co ntrast imaging may prove useful and bilateral BP cuff measurements for c omparison. FINDINGS: Carotid Findings: Right Left Verteb.Flw Antegrade Antegrade Subclavian Biphasic Biphasic MEASUREMENTS: DOPPLER Left Bulb Bulb PSV 82.6 cm/s Bulb EDV 11.3 cm/s Left CCA Dist CCA Dist PSV 51.1 cm/s CCA Dist EDV 12.8 cm/s Left CCA Mid CCA Mid PSV 53.1 cm/s CCA Mid EDV 12.8 cm/s Left CCA Prox CCA Prox PSV 60.9 cm/s CCA Prox EDV 11.3 cm/s Left ICA Dist ICA Dist PSV 0 cm/s Left ICA Mid ICA Mid PSV 0 cm/s Left ICA Prox ICA Prox PSV 0 cm/s Left ECA Prox ECA Prox PSV 136 cm/s ECA Prox EDV 25.2 cm/s Left SCA Prox SCA Prox PSV 136 cm/s Left Vertebral Vertebral PSV 80.6 cm/s Vertebral EDV 36.4 cm/s Right Bulb Bulb PSV 154 cm/s Bulb EDV 40.7 cm/s Right CCA Dist CCA Dist PSV 54.9 cm/s CCA Dist EDV 19.8 cm/s Right CCA Mid CCA Mid PSV 54.3 cm/s CCA Mid EDV 19.2 cm/s Right CCA Prox CCA Prox PSV 90.1 cm/s CCA Prox EDV 14.3 cm/s Right ICA Dist ICA Dist PSV 115 cm/s ICA Dist EDV 32.9 cm/s Right ICA Mid ICA Mid PSV 165 cm/s ICA Mid EDV 41.6 cm/s Right ICA Prox ICA Prox PSV 175 cm/s ICA Prox EDV 49.4 cm/s Right SCA Prox SCA Prox PSV 150 cm/s Right Vertebral Vertebral PSV 229 cm/s Vertebral EDV 46.3 cm/s Right ICA/CCA Ratio ICA/CCA PSV 3.22 Signed 09/25/2020 10:35 AM Maycol Swartz MD, FACS, RPVI Procedure Note Interface, Radiology Results In - 2019 10:37 AM [facility] Carotid Duplex R eport [address] [place] [address] For air quality specialist purposes, the aneesh gorization of the degree of the stenosis of this exam is based on criteria described in the IAC carotid stenosis grading white paper( www.intersocietal.org/Vascular) and in Carri Monreal., Sherron Velazquez, et al. Clif burden artery stenosis: arellano-scale and Doppler US diagnosis--Society of Radiologists in Ultrasound Consensus Conference. Radiology. 2003 Nov; 229(2):340-6. Pat.Name: JAE BENSONI D: [id number] .Date: 09/25/2020 Refer .MD: JACQUELINE GUTHRIE MD Exam Time: 8:10:00 AM Study Type:Carotid Age: 4 1940,80Y Sex: FEMALE Sonogrphr: Kiara Nice RVT CPT - 4: 16775 Echo Event ID:[id number] Order ID: [id number] Reason for Study:Known carotid artery st enosis; Stent in the right ICA; Occluded left ICA Procedures: Colorflow, Grayscale/2D, Pul sed wave Doppler Race: C SUMMARY: CAROTID ARTERY SCAN RIGHT: There is calcified plaque in the common carotid artery. There is hard, calcified and irregular plaque noted in the bulb extending into the proximal internal carotid arter y where the stent is not well visualized due to calcified plaque along the wall. The external carotid artery is not seen. Colorflow is disturbed with elevated velocities. There is antegrade flow in the vertebral artery with turbulent elevated velocities. . Volume flow in the common carotid artery is 435 cc/min. LEFT: There is calcified plaque in the common carotid artery. There is hard and calcified plaque note d in the bulb extending into the proximal internal and external carot id artery. Colorflow is absent in the internal carotid artery. There is antegrade flow in the vertebral artery. Volume flow in th e common carotid artery is 264 cc/min. PRELIMINARY FINDINGS 1. <70% stenosis right bulb and interna l carotid artery. 2. Right ECA is not seen. 3. Occluded left internal carotid artery . 4. The right vertebral artery demonstrat es antegrade flow with turbulent elevated velocities throughout 5. The left vertebral artery demonstrate s antegrade flow, however the left vertebral artery waveform appears a bnormal and may be suggestive of a pre steal. See the same day RENU and lower extremiti es arterial Duplex exam Patient seen in the clinic by Dr Guthrie PHYSICIAN INTERPRETATION Calcified plaque in the common carotid a rteries, bilaterally. < 70% stenosis right carotid stent ( Bul b to ICA). Left internal carotid artery is occluded . > 50% stenosis right vertebral artery. Left vertebral artery show dampened waveforms with potential early systolic deceleration suggestive of pre steal. Additional con trast imaging may prove useful and bilateral BP cuff measurements for c omparison. FINDINGS: Carotid Findings: Right Left Verteb.Flw Antegrade Antegrade Subclavian Biphasic Biphasic MEASUREMENTS: DOPPLER Left Bulb Bulb PSV 82.6 cm/s Bulb EDV 11.3 cm/s Left CCA Dist CCA Dist PSV 51.1 cm/s CCA Dist EDV 12.8 cm/s Left CCA Mid CCA Mid PSV 53.1 cm/s CCA Mid EDV 12.8 cm/s Left CCA Prox CCA Prox PSV 60.9 cm/s CCA Prox EDV 11.3 cm/s Left ICA Dist ICA Dist PSV 0 cm/s Left ICA Mid ICA Mid PSV 0 cm/s Left ICA Prox ICA Prox PSV 0 cm/s Left ECA Prox ECA Prox PSV 136 cm/s ECA Prox EDV 25.2 cm/s Left SCA Prox SCA Prox PSV 136 cm/s Left Vertebral Vertebral PSV 80.6 cm/s Vert ebral EDV 36.4 cm/s Right Bulb Bulb PSV 154 cm/s Bulb EDV 40.7 cm/s Right CCA Dist CCA Dist PSV 54.9 cm/s CCA Dist EDV 19.8 cm/s Right CCA Mid CCA Mid PSV 54.3 cm/s CCA Mid EDV 19.2 cm/s Right CCA Prox CCA Prox PSV 90.1 cm/s CCA Prox EDV 14.3 cm/s Right ICA Dist ICA Dist PSV 115 cm/s ICA Dist EDV 32.9 cm/s Right ICA Mid ICA Mid PSV 165 cm/s ICA Mid EDV 41.6 cm/s Right ICA Prox ICA Prox PSV 175 cm/s ICA Prox EDV 49.4 cm/s Right SCA Prox SCA Prox PSV 150 cm/s Right Vertebral Vertebral PSV 229 cm/s Vert ebral EDV 46.3 cm/s Right ICA/CCA Ratio ICA/CCA PSV 3.22 Signed 09/25/2020 10:35 AM Maycol Swartz MD, FACS, RPVI Performing Organization Address City/State/ZIP Code Phon e Number [facility] [address] [place] [address] Us duplex arterial lower extremity (09/25/2020 10:13 AM MAPPING PILOT)Only the most recent of2 resultswithin the time period is included. Specimen Narrative Performed At [facility] Lower Extremity Arterial Duplex Report [id number] [facility] [address], [place] [address] Pat.Name: JAE BENSON.ID: [id number] .Date: 09/25/2020 Refer.MD: JACQUELINE GUTHRIE MD Exam Time: 8:47:00 AM Study Type:L E Arterial Age: 4 1940,80Y Sex: FEMALE Sonogrphr: Kiara Nice RVT CPT - 4: 9392 5 Echo Event ID:[id number] Order ID: [id number] Reason for Study:Follow up s/p bilateras l EXPENSE CLERK 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 The proximal and distal segments of the graft are tortuous. Turbulent flow is noted th roughout. PSV cm/s Inflow artery(Rt EXPENSE CLERK) 212 Proximal anastomosis 343 Proximal graft 184(tortuous) Mid graft 104 Distal graft 123(tortuous) Distal anastomosis 72 Outflow artery (Rt EXPENSE CLERK) 42 (turbulent) DUPLEX SCAN OBSERVATIONS: RIGHT: Satisfactory appearance at the co mmon femoral artery endarterectomy site. The profunda femora l, superficial femoral and popliteal arteries demonstrate scattered calcified plaque throughout. The popliteal artery branches off in the mid segment. Difficulty identifying the tibioperoneal trunk. The posterior tibial, peroneal and anterior tibial arteries demonstrate concentric calcified arterial cooper. LEFT:Satisfactory appearance at the comm on femoral artery endarterectomy site. The profunda femora l, superficial femoral and popliteal arteries demonstrate scattered calcified plaque throughout. The popliteal artery branches off in the mid segment. Difficulty identifying the tibioperoneal trunk. The posterior tibial, peroneal and anterior tibial arteries demonstrate concentric calcified arterial cooper. PRELIMINARY FINDINGS: 1. Patent left to right fem/fem bypass g raft without evidence of significant stenosis. 2. Satisfactory appearance at the common femoral artery endarterectomy site, bilaterally. 3. <50% stenosis left proximal deep femo ral artery (ratio 1.3). 4. See the same day RENU and carotid Dupl ex exam Patient seen in the clinic by Dr Guthrie PHYSICIAN INTERPRETATION: 1. Patent left to right fem/fem bypass with < 50% stenosis at the proximal anastomosis ( ratio 1.6) 2. <50% stenosis left proximal deep femo ral artery (ratio 1.3). FINDINGS: MEASUREMENTS: DOPPLER Left TOMB MAKER HELPER Prox TOMB MAKER HELPER Prox PSV 70 cm/s Right TOMB MAKER HELPER Prox TOMB MAKER HELPER Prox PSV 62 cm/s Left TOMB MAKER HELPER Distal TOMB MAKER HELPER Distal PSV 58 cm/s Right TOMB MAKER HELPER Distal TOMB MAKER HELPER Distal PSV 69 cm/s Left TOMB MAKER HELPER Mid TOMB MAKER HELPER Mid PSV 81 cm/s Right TOMB MAKER HELPER Mid TOMB MAKER HELPER Mid PSV 70 cm/s Left Peroneal Dist Peroneal Dist P 32 cm/s Right Peroneal Dist Peroneal Dist P 43 cm/s Left SFA Mid SFA Mid PSV 110 cm/s Right SFA Mid SFA Mid PSV 115 cm/s Left ED Prox ED Prox PSV 50 cm/s Right ED Prox ED Prox PSV 63 cm/s Left EXPENSE CLERK Prox EXPENSE CLERK Prox PSV 212 cm/s Left ED Mid ED Mid PSV 59 cm/s Right ED Mid ED Mid PSV 53 cm/s Left ED Distal ED Distal PSV 68 cm/s Right ED Distal ED Distal PSV 80 cm/s Left Pop Prox Pop Prox PSV 46 cm/s Right Pop Prox Pop Prox PSV 73 cm/s Left Pop Mid Pop Mid PSV 61 cm/s Right Pop Mid Pop Mid PSV 53 cm/s Left EXPENSE CLERK Dist EXPENSE CLERK Dist PSV 172 cm/s Left Peroneal Mid Peroneal Mid PS 45 cm/s Right Peroneal Mid Peroneal Mid PS 37 cm/s Left Peroneal Prox Peroneal Prox P 35 cm/s Right Peroneal Prox Peroneal Prox P 33 cm/s Left TP Trunk Dist TP Trunk Dist P 44 cm/s Right TP Trunk Dist TP Trunk Dist P 46 cm/s Left SFA Prox SFA Prox PSV 105 cm/s Left SFA Dist SFA Dist PSV 96 cm/s Right SFA Dist SFA Dist PSV 119 cm/s Left Pop Dist Pop Dist PSV 80 cm/s Right Pop Dist Pop Dist PSV 64 cm/s Left Profunda Profunda PSV 227 cm/s Right EXPENSE CLERK Dist 1 EXPENSE CLERK Dist 1 PSV 178 cm/s Right Profunda Profunda PSV 81 cm/s Right SFA Prox SFA Prox PSV 132 cm/s Signed 09/25/2020 12:24 PM Maycol Swartz MD, FACS, RPVI Procedure Note Interface, Radiology Results In - 2019 12:25 PM [facility] Lower Extremity Arterial Duplex Report [id number] [facility] [address], [place] [id number] Pat.Name: JAE BENSON Pat.I D: [id number] St.Date: 09/25/2020 Refer .MD: JACQUELINE GUTHRIE MD Exam Time: 8:47:00 AM Study Type:LE Arterial Age: 4 1940,80Y Sex: FEMALE Sonogrphr: Kiara Nice RVT CPT - 4: 94091 Echo Event ID:[id number] Order ID: [id number] Reason for Study:Follow up s/p bilateras l EXPENSE CLERK 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 The proximal and distal segments of the graft are tortuous. Turbulent flow is noted th roughout. PSV cm/s Inflow artery(Rt EXPENSE CLERK) 2 12 Proximal anastomosis 3 43 Proximal graft 184(tortuous) Mid graft 104 Distal graft 123(tortuous) Distal anastomosis 72 Outflow artery (Rt EXPENSE CLERK) 42 (turbulent) DUPLEX SCAN OBSERVATIONS: RIGHT: Satisfactory appearance at the co mmon femoral artery endarterectomy site. The profunda femora l, superficial femoral and popliteal arteries demonstrate scattered calcified plaque throughout. The popliteal artery branches off in the mid segment. Difficulty identifying the tibioperoneal trunk. The posterior tibial, peroneal and anterior tibial arteries demonstrate concentric calcified arterial cooper. LEFT:Satisfactory appearance at the comm on femoral artery endarterectomy site. The profunda femora l, superficial femoral and popliteal arteries demonstrate scattered calcified plaque throughout. The popliteal artery branches off in the mid segment. Difficulty identifying the tibioperoneal trunk. The posterior tibial, peroneal and anterior tibial arteries demonstrate concentric calcified arterial cooper. PRELIMINARY FINDINGS: 1. Patent left to right fem/fem bypass g raft without evidence of significant stenosis. 2. Satisfactory appearance at the common femoral artery endarterectomy site, bilaterally. 3. <50% stenosis left proximal deep femo ral artery (ratio 1.3). 4. See the same day RENU and carotid Dupl ex exam Patient seen in the clinic by Dr Guthrie PHYSICIAN INTERPRETATION: 1. Patent left to right fem/fem bypass with < 50% stenosis at the proximal anastomosis ( ratio 1.6) 2. <50% stenosis left proximal deep femo ral artery (ratio 1.3). FINDINGS: MEASUREMENTS: DOPPLER Left TOMB MAKER HELPER Prox TOMB MAKER HELPER Prox PSV 70 cm/s Right TOMB MAKER HELPER Prox TOMB MAKER HELPER Prox PSV 62 cm/s Left TOMB MAKER HELPER Distal TOMB MAKER HELPER Distal PSV 58 cm/s Right TOMB MAKER HELPER Distal TOMB MAKER HELPER Distal PSV 69 cm/s Left TOMB MAKER HELPER Mid TOMB MAKER HELPER Mid PSV 81 cm/s Right TOMB MAKER HELPER Mid TOMB MAKER HELPER Mid PSV 70 cm/s Left Peroneal Dist Peroneal Dist P 32 cm/s Right Peroneal Dist Peroneal Dist P 43 cm/s Left SFA Mid SFA Mid PSV 110 cm/s Right SFA Mid SFA Mid PSV 115 cm/s Left ED Prox ED Prox PSV 50 cm/s Right ED Prox ED Prox PSV 63 cm/s Left EXPENSE CLERK Prox EXPENSE CLERK Prox PSV 212 cm/s Left ED Mid ED Mid PSV 59 cm/s Right ED Mid ED Mid PSV 53 cm/s Left ED Distal ED Distal PSV 68 cm/s Right ED Distal ED Distal PSV 80 cm/s Left Pop Prox Pop Prox PSV 46 cm/s Right Pop Prox Pop Prox PSV 73 cm/s Left Pop Mid Pop Mid PSV 61 cm/s Right Pop Mid Pop Mid PSV 53 cm/s Left EXPENSE CLERK Dist EXPENSE CLERK Dist PSV 172 cm/s Left Peroneal Mid Peroneal Mid PS 45 cm/s Right Peroneal Mid Peroneal Mid PS 37 cm/s Left Peroneal Prox Peroneal Prox P 35 cm/s Right Peroneal Prox Peroneal Prox P 33 cm/s Left TP Trunk Dist TP Trunk Dist P 44 cm/s Right TP Trunk Dist TP Trunk Dist P 46 cm/s Left SFA Prox SFA Prox PSV 105 cm/s Left SFA Dist SFA Dist PSV 96 cm/s Right SFA Dist SFA Dist PSV 119 cm/s Left Pop Dist Pop Dist PSV 80 cm/s Right Pop Dist Pop Dist PSV 64 cm/s Left Profunda Profunda PSV 227 cm/s Right EXPENSE CLERK Dist 1 EXPENSE CLERK Dist 1 PSV 178 cm/s Right Profunda Profunda PSV 81 cm/s Right SFA Prox SFA Prox PSV 132 cm/s Signed 09/25/2020 12:24 PM Maycol Swartz MD, FACS, RPVI Performing Organization Address City/State/ZIP Code Phon e [facility] [address] [id number] Us ankle brachial index (09/25/2020 8:32 AM MAPPING PILOT) Specimen Narrative Performed At [facility] Lower Extremity Art erial Physiologic Report [address] [place] [address] Pat.Name: JAE BENSON Pat.ID: [id number] .Date: 09/25/2020 Refer.MD: JACQUELINE GUTHRIE MD Exam Time: 8:19:00 AM Study Type:P hysiologic Leg Age: 4 1940,80Y Sex: FEMALE Sonogrphr: Mamie Traore RVT CPT - 4: 9 3922 Echo Event ID:[id number] Order ID: [id number] Reason for Study:Surveillance status pos t fem-fem bypass. Procedures: Ankle/brachial pressures Race: C SUMMARY: DOPPLER SIGNALS / ANALOG WAVEFORMS: ANALOG WAVEFORMS ARTERY RIGHT LEFT Posterior Tibial Monophasic Monophasic Dorsalis Pedis Monophasic Monophasic See same day carotid and bilateral lower extremity arterial duplex. Patient seen in clinic today by Dr. Sherice bowman PRELIMINARY FINDINGS: 1. Resting ankle brachial indices sugg est moderate lower extremity arterial occlusive disease, bilaterally. 2. Toe brachial index suggests moderat e to severe disease on the right and mild disease on the left. PHYSICIAN INTERPRETATION: 1. Resting ankle brachial indices sugg est moderate lower extremity arterial occlusive disease, bilaterally. 2. Toe brachial index suggests moderat e to severe disease on the right and mild disease on the left. FINDINGS: MEASUREMENTS: PRESSURES Right Brachial Brach P 172 mmHg Right Ankle PT AnklePT P 136 mmHg Right Ankle DP AnkleDP P 119 mmHg Left Ankle DP AnkleDP P 124 mmHg Right Great Toe GreatToe P 65 mmHg Left Great Toe GreatToe P 74 mmHg Right RENU PT RENU PT 0.79 Right RENU DP RENU DP 0.69 Left RENU DP RENU DP 0.72 Right TBI TBI 0.38 Left TBI TBI 0.43 Left Ankle PT AnklePT P 127 mmHg Left RENU PT RENU PT 0.738 Signed 09/25/2020 10:28 AM Maycol Swartz MD, FACS, RPVI Procedure Note Interface, Radiology Results In - 2019 10:28 AM MAPPING PILOT [facility] Lower Extremity Arterial P hysiologic Report [address] [id number] Pat.Name: JAE BENSON Pat.I D: [id number] .Date: 09/25/2020 Refer .MD: JACQUELINE GUTHRIE MD Exam Time: 8:19:00 AM Study Type:Physiologic Leg Age: 4 1940,80Y Sex: FEMALE Sonogrphr: Mamie Traore RVT CPT - 4: 48037 Echo Event ID:[id number] Order ID: [id number] Reason for Study:Surveillance status pos t fem-fem bypass. Procedures: Ankle/brachial pressures Race: C SUMMARY: DOPPLER SIGNALS / ANALOG WAVEFORMS: ANALOG WAVEFORMS ARTERY RIGHT LEFT Posterior Tibial Monophasic Monophasic Dorsalis Pedis Monophasic Monophasic See same day carotid and bilateral lower extremity arterial duplex. Patient seen in clinic today by Dr. Sherice murray. PRELIMINARY FINDINGS: 1. Resting ankle brachial indices sugge st moderate lower extremity arterial occlusive disease, bilaterally. 2. Toe brachial index suggests moderate to severe disease on the right and mild disease on the left. PHYSICIAN INTERPRETATION: 1. Resting ankle brachial indices [facility] moderate lower extremity arterial occlusive disease, bilaterally. 2. Toe brachial index suggests moderate to severe disease on the right and mild disease on the left. FINDINGS: MEASUREMENTS: PRESSURES Right Brachial Brach P 172 mmHg Right Ankle PT AnklePT P 136 mmHg Right Ankle DP AnkleDP P 119 mmHg Left Ankle DP AnkleDP P 124 mmHg Right Great Toe GreatToe P 65 mmHg Left Great Toe GreatToe P 74 mmHg Right RENU PT RENU PT 0.79 Right RENU DP RENU DP 0.69 Left RENU DP RENU DP 0.72 Right TBI TBI 0.38 Left TBI TBI 0.43 Left Ankle PT AnklePT P 127 mmHg Left RENU PT RENU PT 0.738 Signed 09/25/2020 10:28 AM Maycol Swartz MD, FACS, RPVI Performing Organization Address City/State/[facility] Code [facility] e Number [facility] [address] [place] [address] CTA Neck W Wo Contrast (03/21/2020 11:23 [...] artery or right ext racranial vertebral artery. [id number] Procedure Note Interface, Radiology Results Incoming - 03/21/2020 12:33 [...] subclavian artery or right extracranial vertebral artery. [id number] Performing Organization Address City/State/ZIP Code Phon e Number [facility] [address] [place] [address] Estimated GFR (03/21/2020 10:49 AM CDT) Estimated GFR 39 (A) mL/min/1.73 [facility] Comment: m2 HOSPITAL Catergory Units Interpretation G1 [...] in 2014. Specimen Blood Performing Organization Address [facility] Phon e Number [facility] DEPARTMENT OF PATHOLOGY AND [address] [place] [address] [phone] [address] POC creatinine (03/21/2020 10:49 AM CDT) POC creatinine 1.3 (H) 0.5 - 0.9 [facility] Comment: mg/dl HOSPITAL Meter ID: [id number] Flight Software Test Engineer ID: Ana Maria Parsons Specimen Blood - Forearm, right Performing Organization Address [facility] Phon e Number 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
--- OUTSIDE RECORDS SUMMARY | 2020-10-10 06:28 | XMS REPORT | Clinical Summary ---
:1940 [facility] Address [address] [place] [address] Care Team Providers Name Role Phone Yunior [...] by 0 Active MG tabletIndications: mouth daily. anxiety with depression clopidogrel (PLAVIX) 75 Take 75 [...] every 7 tabletIndications: days Take in the postmenopausal morning with a osteoporosis full glass of water, on an empty [...] Encounters Date Type Specialty Care Team Description 05/15/2020 Lab Requisition Lab after 10/10/2019 Family History Medical History Relation Name Comments Heart disease Father Hypertension Father Cancer Mother Relation Name Status Comments Father Mother Social History Tobacco Use Types Packs/Day Years Used Date Current Every Day Smoker 0.5 50 Tobacco Cessation: Ready to Quit: Yes Alcohol Use Drinks/Week oz/Week Comments Yes 2 Glasses of wine 2.0 Sex Assigned at Date Recorded Not on file Last Filed Vital Signs Not on file Plan of Treatment Not on file Procedures Procedure Name Priority Date/Time Associated Diagnosis Comme nts SARS-COV2/RT-PCR Routine 05/15/2020 5:05 AM Resu lts for this ([facility]) CDT procedure are in the results section. after 10/10/2019 Results SARS-CoV2/RT-PCR ([facility]) (05/15/2020 5:05 AM CDT) SARS-COV2/RT-PCR Negative Not Detected, [facility] Negative, See [facility] external report CENTER for linked test SARS-COV-2 [facility] PERFORMING LAB [facility] Specimen Other - Nasopharyngeal wall structure (b juan structure) Narrative Performed At Negative results do not preclude SARS-CoV-2 [facility] infection and should not be used as the sole basis for patient management decisions. Negative results must be combined with clinical observations, patient history, and epidemiological information. A false negative result may occur if a specimen is improperly collected, transported or handled. The limit of detection for this assay is 250 copies/mL. This SARS CoV-2 test is a rapid, real-time RT-PCR test intended for the qualitative detection of nucleic acid from SARS-CoV-2 in a nasopharyngeal swab specimen collected from individuals suspected of COVID-19 by their healthcare provider. This test has not been Food and Drug Administration (FDA) cleared or approved and has been authorized by FDA under an Emergency Use Authorization (EUA). This EUA will be effective until the declaration that circumstances exist justifying the authorization of the emergency use of in vitro diagnostic tests for detection and/or diagnosis of COVID-19 is terminated under Section 564(b)(2) of the Act or the EUA is revoked under Section 564(g) of the Act. Fact Sheet for Healthcare Providers: https://www.[employer]/Documents/Xpert%20Xpre ss%20SARS%20CoV-2/Fact%20Sheets/3023802%20SAR S-COV-2%20HEALTHCARE%20PROVIDERS%20FACT%20SHEE T.pdf Fact Sheet for Healthcare Patients: https://www.[employer]/Documents/Xpert%20Xpre ss%20SARS%20CoV-2/Fact%20Sheets/3023801%20SAR S-COV-2%20PATIENT%20FACT%20SHEET.pdf Performing Laboratory: [address] [place] [address] Performing Organization Address City/State/[place] [phone] CENTER after 10/10/2019 Insurance Payer Benefit Plan / Subscriber ID Effective Dates Phone Addre ss Type Group [employer] - A[employer]NA MEDICARE [id number] 2016-Oneil [phone] [address] MEDICARE MGD HMO POS PPO t 2 [id number] [place] [address] Advance Directives For more information, please contact: [phone] Code Status Date Activated Date Inactivated Comments Full Code 01/25/2017 1:46 AM 01/26/2017 1:49 PM This code status was determined by: Patient
--- OUTSIDE RECORDS SUMMARY | 2020-10-10 06:29 | XMS REPORT | Continuity of Care Document ---
:1940 Author Organization [facility] t Address [address] [place] [address] Care Team Providers Name Role Phone PHYSICIAN Primary Care Physician Unavailable Ty Guthrie MD Attending Clinician Homar TERRAZAS Attending Clinician Unavailable Koko Gomez MD Attending Clinician Deborah ROBERTSON Attending Clinician Unavailable Lu Virgen MA Attending Clinician Unavailable JO-ANN WARREN Attending Clinician Unavailable JO-ANN WARREN Admitting Clinician Unavailable Payers Payer Name Policy Type Policy Number Effective Date Expiration Date S susan AETNA [id number] 2013 [place] MEDICAREAETNA 00:00:00 [place] MEDICARE HMO/PPO [id number] [facility] [id number] [address] [facility] [facility] - MGD CAREAETNA 00:00:[address] MEDICARE HMO POS [id number] [address] Problems Condition Condition Condition Status Onset Resolution [...] 00:00: st 00 Syncope Syncope Disease Active [facility] collapse collapse 00:00: Medica l 00 [place] Essential Essential Disease Active 2015-10 Ajit mcclellan hypertensi hypertensi 08 Me thodi on on 00:00: st 00 PAD PAD Disease Active 2015-10 [facility] (periphera (periphera 08 Assessmen Methodi l artery l artery 00:00: t & Plan: st disease) disease) 00 Improved symptoms. Continue medical optimizat ion and anti-coag ulation. Follow up in 6 months. 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 00 [facility] Perindop Propensi Active Swelling Throat [place] ty to 4-16 swelled Methodi adverse 00:00: up. st reaction 00 s to drug Family History Family Member Diagnosis Comments Start Date Stop Date Source Natural father Heart disease [facility] Natural father Hypertension [facility] Natural father Heart disease [place] [facility] Natural mother Cancer [facility] Natural mother Cancer [facility] Natural brother Heart disease [place] Paternal grandfather Heart disease [place] Natural sister Cancer [place] Social History Social Habit Start Date Stop Date Quantity Comments Source Sex Assigned At [place] [facility] Exposure to Not sure [place] SARS-CoV-2 (event) Method ist Cigarettes smoked 2020-09-25 2020-09-25 [place] current (pack per 00:00:00 00:00:[address] day) - Reported Cigarette 2020-09-25 2020-09-25 [place] pack-years 00:00:00 00:00:00 [place] Tobacco use and 2020-09-25 2020-09-25 Never used [place] exposure 00:00:00 00:00:00 [place] Alcohol intake 2020-09-25 2020-09-25 Current drinker of Audie lott 00:00:00 00:00:00 alcohol (finding) Methodi st Alcohol Comment 2019-01-19 2019-01-19 ocasionally [place] 00:00:00 00:00:00 [place] History of tobacco 2019-01-10 Current smoker [place]ott use 00:00:00 [place] Smoking Status Start Date Stop Date Source Former smoker 2020-09-25 00:00:00 2020-09-25 00:00:00 [place] [facility] Current every day 2017-01-25 00:00:00 [facility] Medications Ordered Filled Start Stop Current Ordering Indication Dosage Frequency Signature Comments Components Source Medication Medication Date Date Medication? Clinician (SIG) Name Name aspirin 2019-10 Yes 81mg QD Take 81 mg [place] (ECOTRIN) 2-14 by mouth Method i 81 MG 12:52: daily. st enteric 44 coated tablet albuterol 2019-10 Yes 2{puff} Q4H Inhale 2 [place] (PROAIR 2-14 puffs Methodi HFA,PROVENT 12:52: every [address] st [place] 44 (four) HFA,VENTOLI hours as N HFA) 90 needed for mcg/actuati wheezing. on inhaler citalopram 2019-10 Yes 40mg QD Take 40 mg [place] (CeleXA) 40 2-14 by mouth Meth adri MG tablet 12:52: daily. st 44 acetaminoph 2019-10 Yes 650mg Take 650 [place] en 2-14 mg by Methodi (TYLENOL) 12:52: mouth as st 650 MG 8 hr 44 needed for tablet mild pain. metoprolol 2019-10 Yes TAKE ONE Ajit ston tartrate 1-20 TABLET BY Method i (LOPRESSOR) 00:00: MOUTH st 25 mg 00 DAILY tablet clopidogreL 2019-10 Yes TAKE ONE [place] (PLAVIX) 75 0-30 TABLET BY Met hodi mg tablet 00:00: MOUTH st 00 DAILY pantoprazol 2019-10 Yes Chest pain, TAKE ONE [place] e 0-30 unspecified TABLET BY Met [facility]odi (PROTONIX) 00:00: type MOUTH st 40 MG EC 00 DAILY tablet clopidogreL 2019-10- No TAKE ONE [place] (PLAVIX) 75 0-27 10-30 TABLET BY Me thodi mg tablet 00:00: 00:[address] 00 :00 DAILY hydrALAZINE 2019-10 Yes TAKE ONE [place] (APRESOLINE 0-19 TABLET BY Met [facility] ) 25 MG 00:00: MOUTH st tablet 00 DAILY NEEDED (SYSTOLIC FOR BLOOD PRESSURE >160) metoprolol 2020- No 25mg QD Take 1 [place] tartrate 9-23 11-20 tablet (25 Meth adri (LOPRESSOR) 00:00: 00:00 mg total) st 25 mg 00 :00 by mouth tablet daily. pantoprazol 2020- No Chest pain, TAKE ONE [place] e 7-23 10-30 unspecified TABLET BY Me thodi (PROTONIX) 00:00: 00:[address] 40 MG EC 00 :00 DAILY tablet clopidogreL 2020- No TAKE ONE [place] (PLAVIX) 75 7-23 10-27 TABLET BY Me thodi mg tablet 00:00: 00:[address] 00 :00 DAILY fluticasone 2019-0 Yes Inhale. 1 [place] -umeclidin- 6-15 puff daily Me thodi vilanter 14:41: st (Trelegy 29 Ellipta) 100-62.5-25 mcg blister with device furosemide 0 Yes 20mg Take 20 mg [place] (LASIX) 20 6-15 by mouth Metho di mg tablet 14:41: as needed. st 29 nicotine 2019-0 2020- No 1{patch Q24H Place 1 [place] (NICODERM 6-15 06-15 } patch on Metho [...] 00:[address] 00 :00 DAILY losartan 2020- No TAKE ONE [place] (COZAAR) 3-02 [...] MOUTH st tablet 00 :00 DAILY rosuvastati 2018-0 Yes 10mg QD Take 10 mg [place] [...] tiotropium 2018-0 Yes 2{puff} QD Inhale 2 [place] bromide 8-21 puffs Methodi (SPIRIVA 10:12: daily. st RESPIMAT 56 INHL) losartan Yes 50mg QD Take 50 mg Ajit ston (COZAAR) 50 8-21 by mouth Meth adri MG tablet 10:12: daily. st 56 pantoprazol 2020- No Chest pain, TAKE ONE [place] e 605-03 unspecified TABLET BY [place] (PROTONIX) 00:00: 00:[address] 40 MG EC 00 :00 DAILY tablet spironolact Yes 50mg Q.5D Take 50 mg [place] one 3-09 by mouth 2 Methodi (ALDACTONE) 00:00: (two) st 25 MG 00 times a tablet day. metoprolol 2019- No 12.5mg Q.5D Take 0.5 [place] tartrate 11-23 tablets Methodi (LOPRESSOR) 00:00: 00:00 (12.5 mg s t 25 mg 00 :00 total) by tablet mouth 2 (two) times a day. buPROPion Yes 100mg Q.5D Take 100 Ajit ston SR 2-04 mg by Methodi (WELLBUTRIN 00:00: mouth 2 st SR) 100 MG 00 (two) 12 hr times a tablet day. LYRICA 75 Yes 75mg QD Take 75 mg [place] mg capsule 04-19 by mouth Metho di 00:00: daily. st 00 hydrALAZINE 2016-10- No 25mg Q24H Take 1 Ajit ston (APRESOLINE 2- 10-19 tablet (25 M ethodi ) 25 MG 00:00: 00:00 mg total) st tablet 00 :00 by mouth daily as needed (sytolic bp >160). metoprolol Yes hypertensio 100mg QD Take [address] (LOPRESSOR) 4-17 n mg by [facility] - 100 MG 11:49: mouth Medical tablet 38 daily. Center losartan Yes hypertensio 100mg QD Take [address] (COZAAR) 4-17 n mg by [facility] - 100 MG 11:49: mouth Medical tablet 38 daily. Center levothyroxi Yes hypothyroid 100ug Take [address] ne 4-17 ism mcg by [facility] - (SYNTHROID, 11:49: mouth Medic al LEVOTHROID) 38 Every Center 100 MCG morning on tablet an empty stomach. rosuvastati Yes hyperlipide 10mg QD Take [address] n (CRESTOR) 4-17 manjinder by mouth Luke s - 10 MG 11:49: daily. Medical tablet 38 [place] citalopram 0 Yes anxiety 40mg QD Take [address] (CELEXA) 40 4-17 with by mouth Luke s - MG tablet 11:49: depression daily. [address] clopidogrel Yes 75mg QD Take [address] (PLAVIX) 75 4-17 by mouth Luke s - mg tablet 11:49: daily. Medica l 38 [place] aspirin 81 Yes 81mg QD Take [address] MG EC 4-17 by mouth [facility] - tablet 11:49: daily. [address] furosemide 0 Yes 20mg QD Take [address] (LASIX) 20 4-17 by mouth [facility] - MG tablet 11:49: daily. Medica l 38 [place] anastrozole Yes 1mg QD Take [address] (ARIMIDEX) 4-17 by mouth [facility] - 1 mg tablet 11:49: daily. [facility] shane 38 [place] alendronate Yes postmenopau 70mg Take [address] (FOSAMAX) 4-17 paty by mouth [facility] - 70 MG 11:49: osteoporosi every 7 Me dical tablet 38 s days Take Center in the morning with a full glass of water, on an empty stomach, and do not take anything else by mouth or lie down for the next 30 min. . pregabalin Yes 50mg Take [address] (LYRICA) 50 4-17 by mouth Luke s - MG capsule 11:49: daily with M edical 38 dinner. [place] traMADol Yes pain 50mg Take [address] (ULTRAM) 50 4-17 by mouth Luke s - mg tablet 11:49: as needed Med ical 38 for Pain. [place] zolpidem 2016-0 Yes 10mg Take [address] (AMBIEN) 10 4-17 by mouth Luke s - mg tablet 11:49: every Medical 38 night as Center needed for Insomnia. cloNIDine 2016- Yes .1mg Take 0.[address] HCl 4-17 mg by [facility] - (CATAPRES) 11:49: mouth as Med ical 0.1 MG 38 needed. Center tablet predniSONE 2015-10 Yes 5mg QD Take 5 [...] Name Observation Time Observation Value Comments Source Systolic blood 2020-09-25 09:56:00 182 mm[Hg] Evangelist beck Caodaism pressure Diastolic blood 2020-09-25 09:56:00 68 mm[Hg] Christopher Asif pressure Heart rate 2020-09-25 09:56:00 79 /min Robbie Asif Body temperature 2020-09-25 09:56:00 36.39 Nuria Roberto Asif Respiratory rate 2020-09-25 09:56:00 18 /min Roberto Asif Body height 2020-09-25 09:56:00 172.7 cm Robbie Asif Body weight 2020-09-25 09:56:00 69.4 kg Robbie Asif BMI 2020-09-25 09:56:00 23.26 kg/m2 Robbie Asif Oxygen saturation 2020-09-25 09:56:00 92 /min on 2 liters Ajit ston Caodaism in Arterial blood by Pulse oximetry Procedures Procedure Date / Time Performed Performing Clinician [facility] e US CAROTID DUPLEX 2020-09-25 10:13:29 Jacqueline Guthrie BILATERAL Ty US DUPLEX ARTERIAL 2020-09-25 10:13:14 Jacqueline Guthrie LOWER EXTREMITY Ty BILATERAL US ANKLE BRACHIAL 2020-09-25 08:32:22 Jacqueline Guthrie INDEX Ty SARS-COV2/RT-PCR ([facility] 2020-05-15 05:05:00 [facility] ANGIOGRAM NECK W WO 2020-03-21 11:23:49 Marlyn Guthrievirginiaissa lott [facility] CONTRAST Ty POC CREATININE 2020-03-21 10:49:00 Karla Vazquez [facility] Meth odist ESTIMATED GFR 2020-03-21 10:49:00 ArianneKarla bridges [facility] odist US DUPLEX ARTERIAL 2020-03-14 15:10:09 Jacqueline Guthrie [place] n [facility] LOWER EXTREMITY Ty BILATERAL US CAROTID DUPLEX 2020-03-14 15:09:56 Jacqueline Guthrie [facility] BILATERAL Ty Plan of Care Planned Activity Planned Date Details Comments Source Future Scheduled 2020-05-12 INFLUENZA VACCINE [place] [facility] Test 00:00:00 [code = INFLUENZA VACCINE] Future Scheduled 2006 65+ PNEUMOCOCCAL [place] [facility] Test 00:00:00 VACCINE (1 of 1 - PPSV23) [code = 65+ PNEUMOCOCCAL VACCINE (1 of 1 - PPSV23)] Future Scheduled 1991 SHINGLES VACCINES (#1) [place] [facility] Test 00:00:00 [code = SHINGLES VACCINES (#1)] Future Scheduled 1957 COVID-19 VACCINE (#1) [place] [facility] Test 00:00:00 [code = COVID-19 VACCINE (#1)] Encounters Start End Encounter Admission Attending Care Care Encounter Source Date/Time Date/Time Type Type Clinicians Facility Department ID 2020-09-25 2020-09-25 Outpatient [facility] [id number] [place] 00:00:00 00:00:00 [place] [address] 2020-09-25 2020-09-25 Outpatient [facility] [id number] [place] 00:00:00 00:00:00 [place] [address] 2020-09-25 2020-09-25 Outpatient [facility] [id number] [place] 00:00:00 00:00:00 [place] [address] 2020-09-25 2020-09-25 Outpatient [facility] [id number] [place] 00:00:00 00:00:00 [place] [address] 2020-03-28 2020-03-28 Outpatient [facility] [id number] [place] 00:00:00 00:00:00 [facility] 2020-03-21 2020-03-21 Outpatient [facility] [id number] [place] 00:00:00 00:00:00 [facility] 2020-03-14 2020-03-14 Outpatient [facility] [id number] [place] 00:00:00 00:00:00 [facility]UD[facility] 288 [facility] 2020-03-14 2020-03-14 Outpatient [facility] [id number] [place] 00:00:00 00:00:00 [facility] 028 [facility] 2019-12-13 2019-12-13 Outpatient [facility] [id number] [place] 00:00:00 00:00:00 MARY [address] Results Test Description Test Time Test Comments Results Result Comments Source SARS-CoV2/RT-PCR ([facility] & Ref Labs) 2020-05-15 15:57:00 Test Item Value Reference Range Interpretation Comme nts SARS-COV2/RT-PCR (test code = Negative Not Detected, 48921-2) Negative, See external report for linked test SARS-COV-2 PERFORMING LAB [facility] (test code = 27226-7) KAI (test code = KAI) Negative results do not preclude SARS-CoV-2 infection and should not be used as [...] of the Act. Fact Sheet for Healthcare Providers:https://www.[employer]/Documents/Xpert%20Xpress %20SARS%20CoV-2/Fact%20Sheets /3023802%54EOYG-JZB-7%20HEAL THCARE%20PROVIDERS%20FACT%20S HEET.pdf Fact Sheet for Healthcare Patients:https://www.[employer]/Documents/Xpert%20Xpress% 20SARS%20CoV-2/Fact%20Sheets/ 302-3801%35APEB-NZQ-6%20PATIE NT%20FACT%20SHEET.pdf Performing Laboratory:[facility]ARS-COV2/RT-PCR ([facility] REF [facility])2020-05-15 15:57:00 Test Item Value Reference Range Interpretation Comments SARS-COV2/RT-PCR (test code Negative Not Detected, Negative, = 3591714) See external report for linked test SARS-COV-2 PERFORMING LAB [facility] (test code = 0673872) Negative results do not preclude SARS-CoV-2 infection and should not be used as the sole basis for patient management decisions. Negative results must be combined with clinical observations, patient history, and epidemiological information. A false negative result may occur if a specimen is improperly collected, transported or handled.The limit of detection for this assay is 250 copies/mL.This SARS CoV-2 test is a rapid, real-time RT-PCR test intended for the qualitative detection of nucleic acid from SARS-CoV-2 in a nasopharyngeal swab specimen collected from individuals suspected of COVID-19 by their healthcare provider.This test has not been Food and Drug [...] is revoked under Section 564(g) of the Act.Fact Sheet for Healthcare Pro viders:https://www.[employer]/Documents/Xpert%20Xpress%20SARS%20CoV-2/Fact%20Sh eets/302-3802%66WXKY-CRG-1%20HEALTHCARE%20PROVIDERS%20FACT%20SHEET.pdfFact Sheet for Healthcare Patients:https://www.[employer]ia.[employer]/Documents/Xpert%20Xpress%20SARS%20CoV-2/Fact%20Sheets/302-3801%20SARS-COV -2%20PATIENT%20FACT%20SHEET.pdfPerforming Laboratory:[facility], [place] [address]XMUTWMSZHE [id number] 09:13:00 Test Item Value Reference Range Interpretation Comments HEMOGLOBIN A1C (BEAKER) (test code = 5.6 % 4.3-6.1 368) VITAMIN [id number] 07:58:00 Test Item Value Reference Range Interpretation Comments VITAMIN B12 (BEAKER) (test code = 317 pg/mL 213-816 774) TSH/FREE T4 IF [id number] 07:51:00 Test Item Value Reference Range Interpretation Comments THYROID STIMULATING HORMONE 1.65 uIU/mL 0.35-4.94 (BEAKER) (test code = 772) [id number] 07:37:00 Test Item Value Reference Range Interpretation Comments MAGNESIUM (BEAKER) (test code = 2.0 mg/dL 1.6-2.6 627) BASIC METABOLIC [id number] 07:37:00 Test Item Value Reference Range Interpretation [...] NOT APPLICABLE FOR DIALYSIS PATIEN TS. LIPID [id number] 07:37:00 Test Item Value Reference Range Interpretation [...] 130-159 High 160-189 Very High >=190HEPATIC FUNCTION [id number] 07:37:00 Test Item Value Reference Range Interpretation [...] 6-55 347) CBC W/PLT COUNT & AUTO [id number] 07:33:00 Test Item Value Reference Range Interpretation [...] K/ L 0.00-0.20 (test code = 417) 0.00PT/[id number] 07:04:00 Test Item Value Reference Range Interpretation [...] 2.5-3.5 for patients with mechanical heart valves.PROTHROMBIN TIME/[id number] 07:03:00 Test Item Value Reference Range Interpretation [...]
[2020-10-10] MEDS ORDERED: ONDANSETRON 4 MG/2 ML VIAL ONE (06:51)
[2020-10-10] MEDS ORDERED: METHYLPREDNISOLONE 125 MG INJ ONE ×3 (06:51→20:22)
[2020-10-10] MEDS ORDERED: FAMOTIDINE 20 MG/2 ML VIAL IV ONE (06:51)
[2020-10-10 07:00] LABS: Absolute Lymphocytes (CBC) 1.6 K/uL (0.7-4.9); Basophils % 0.4 % (0-1.3); Hematocrit 42.5 % (36.0-45.0); Lymphocytes % 20.8 % (15.3-44.8); RBC Red Blood Cell Count 4.52 M/uL (3.86-4.86)
[2020-10-10] MEDS ORDERED: PIPER/TAZO/NS 3.375gm 3.375 GM/100 ML BAG ONE (07:08)
[2020-10-10] MEDS ORDERED: RSI MEDICATION KIT IV ONE ×2 (07:09→07:10)
[2020-10-10] MEDS ORDERED: MIDAZOLAM HCL 2 MG/2 ML INJ ONE ×4 (07:12→08:02)
[2020-10-10] MEDS ORDERED: NA CHLORIDE 0.9% 3,000 ML ONE (07:21)
[2020-10-10 07:22] LABS: ALT/SGPT 15 U/L (12-78); AST/SGOT 18 U/L (15-37); Albumin 3.7 g/dL (3.4-5.0); Alkaline Phosphatase 60 U/L (45-117); BUN Blood Urea Nitrogen 46 mg/dL (7-18); Bicarbonate 28 mmol/L (21-32); Bilirubin Direct 0.1 mg/dL (0-0.2); Bilirubin Total 0.5 mg/dL (0.2-1.0); Glucose Level 127 mg/dL (74-106); NT PRO-BNP 2749 pg/mL (<450); Potassium 5.2 mmol/L (3.5-5.1); Protime INR 0.97; Sodium Level 135 mmol/L (136-145); Troponin (Emerg Dept Use Only) < 0.02 ng/mL (0.0-0.045)
--- NOTE | 2020-10-10 07:23 | EDPHYS ---
Physician Documentation [facility] Name: Mihcelle Benson Age: 80 yrs Sex: Female : 1940 Arrival Date: 10/10/2020 Time: 06:27 Bed 2 Private MD: ED Physician Quincy Cantor HPI: 10/10 06:46 This 80 yrs old Female presents to ER via EMS with complaints of Shortness Of dani Breath. 06:46 The patient has shortness of breath at rest, with light activity. Onset: The dani symptoms/episode began/occurred 2 day(s) ago. Duration: The symptoms are continuous, and are steadily getting worse. The patient's shortness of breath is aggravated by coughing, is alleviated by nothing. Associated signs and symptoms: Pertinent positives: non-productive cough, nausea, vomiting. Severity of symptoms: At their worst the symptoms were moderate in the emergency department the symptoms are unchanged. The patient has experienced similar episodes in the past, multiple times. Historical: - Allergies: 06:35 Codeine; mg2 06:35 perindopril erbumine; mg2 - Home Meds: 07:28 aspirin 81 mg Oral TbEC 1 tab once daily [Active]; Ambien 5 mg Oral tab nightly bp [Active]; bupropion HCl 100 mg Oral tab 1 tab 2 times per day [Active]; citalopram 40 mg tab 1 tab once daily [Active]; clopidogrel 75 mg Oral tab 1 tab once daily [Active]; Crestor 10 mg Oral tab 1 tab once daily [Active]; Daliresp 500 mcg Oral tab 1 tab once daily [Active]; hydralazine 25 mg Oral tab as needed [Active]; Brovana 15 mcg/2 mL inhalation nebu 2 mL 2 times per day [Active]; ipratropium-albuterol 0.5 mg-3 mg(2.5 mg base)/3 mL Inhl nebu 4 times per day [Active]; levothyroxine 100 mcg tab 1 tab once daily [Active]; losartan 50 mg Oral tab once daily [Active]; Lyrica 75 mg Oral 1 cap daily [Active]; metoprolol tartrate 12.5 mg Oral tab 1 tab 2 times per day [Active]; Oxygen \T\ 2L PRN and at night [Active]; pantoprazole 40 mg Oral TbEC 1 tab once daily [Active]; potassium chloride 20 mEq Oral TbER 1 tab once daily [Active]; prednisone 5 mg Oral tab once daily [Active]; Spiriva Respimat 2.5 mcg/actuation inhalation mist 2 puffs once daily [Active]; spironolactone 50 mg Oral tab 1 tab 2 times per day [Active]; tramadol 50 mg Oral tab 1 tab as needed [Active]; Ventolin HFA 90 mcg/actuation Nebulizer HFAA 2 puffs every 4 hours [Active]; - PMHx: 06:35 CAD; cancer- breast L side, throat, L ear; CHEMO; CHF; COPD; Depression; GERD; mg2 - Immunization history:: Flu vaccine status is unknown. - Social history:: Smoking status: unknown. - Family history:: not pertinent. ROS: 06:46 Constitutional: Negative for fever, chills, and weight loss, Eyes: Negative for injury, dani pain, redness, and discharge, ENT: Negative for injury, pain, and discharge, Neck: Negative for injury, pain, and swelling, Abdomen/GI: Negative for abdominal pain, nausea, vomiting, diarrhea, and constipation, Back: Negative for injury and pain, : Negative for injury, bleeding, discharge, and swelling, MS/Extremity: Negative for injury and deformity, Skin: Negative for injury, rash, and discoloration, Neuro: Negative for headache, weakness, numbness, tingling, and seizure, Psych: Negative for depression, anxiety, suicide ideation, homicidal ideation, and hallucinations, Allergy/Immunology: Negative for hives, rash, and allergies, Endocrine: Negative for neck swelling, polydipsia, polyuria, polyphagia, and marked weight changes. 06:46 Cardiovascular: Positive for palpitations. 06:46 Respiratory: Positive for cough, shortness of breath, at rest. wheezing, expiratory. Exam: 06:46 Constitutional: This is a well developed, well nourished patient who is awake, alert, dani and in no acute distress. Head/Face: Normocephalic, atraumatic. Eyes: Pupils equal round and reactive to light, extra-ocular motions intact. Lids and lashes normal. Conjunctiva and sclera are non-icteric and not injected. Cornea within normal limits. Periorbital areas with no swelling, redness, or edema. ENT: Nares patent. No nasal discharge, no septal abnormalities noted. Tympanic membranes are normal and external auditory canals are clear. Oropharynx with no redness, swelling, or masses, exudates, or evidence of obstruction, uvula midline. Mucous membranes moist. Neck: Trachea midline, no thyromegaly or masses palpated, and no cervical lymphadenopathy. Supple, full range of motion without nuchal rigidity, or vertebral point tenderness. No Meningismus. Chest/axilla: Normal chest wall appearance and motion. Nontender with no deformity. No lesions are appreciated. Cardiovascular: Regular rate and rhythm with a normal S1 and S2. No gallops, murmurs, or rubs. Normal PMI, no JVD. No pulse deficits. Abdomen/GI: Soft, non-tender, with normal bowel sounds. No distension or tympany. No guarding or rebound. No evidence of tenderness throughout. Back: No spinal tenderness. No costovertebral tenderness. Full range of motion. Female : Normal external genitalia. Skin: Warm, dry with normal turgor. Normal color with no rashes, no lesions, and no evidence of cellulitis. MS/ Extremity: Pulses equal, no cyanosis. Neurovascular intact. Full, normal range of motion. Neuro: Awake and alert, GCS 15, oriented to person, place, time, and situation. Cranial nerves II-XII grossly intact. Motor strength 5/5 in all extremities. Sensory grossly intact. Cerebellar exam normal. Normal gait. Psych: Awake, alert, with orientation to person, place and time. Behavior, mood, and affect are within normal limits. 06:46 Respiratory: the patient does not display signs of respiratory distress, Respirations: labored breathing, that is moderate, Breath sounds: decreased breath sounds, rhonchi, wheezing: expiratory 06:50 ECG was reviewed by the Attending Physician. [facility] Vital Signs: 06:32 BP 136 / 92; Pulse 135; Resp 35; Temp 97.6(TE); Pulse Ox 96% on 15% Nebulizer Mask; bp Weight 72.57 kg; 07:00 BP 89 / 53; Pulse 117; Resp 0; Pulse Ox 96% ; bp 07:10 BP 97 / 70; Pulse 114; Resp 18; Pulse Ox 100% ; bp Procedures: 07:18 Intubation: Ventilated with 100% NRB prior to procedure. O2 saturation prior to dani procedure was 100 %. Intubated orally using # 4 Vannesa blade with 7.5 mm ETT. was successful on first attempt. Ventilated with Ambu bag. Central Line: the site was prepped with Betadine, in sterile fashion, a triple lumen catheter was inserted, in the right in 1 attempts. placement was verified, by blood return, the site was dressed with using sterile technique, the patient tolerated the procedure, well. MDM: 06:31 Patient medically screened. [facility] 06:46 Differential diagnosis: asthma, Bronchitis CHF exacerbation, Chronic Obstructive dani Pulmonary Disease pneumonia, pulmonary edema, reactive airway disease, Sepsis. Antibiotic administration: zosyn. The patient's Wells Deep Vein Thrombosis Score was calculated as follows: Heart Rate >100 BPM (1.5 Pts) Imm/Surg in last 4 wks (1.5 Pts) Total Score: 3-6 Pts - Mod Risk. The patient's pulmonary embolism risk score was calculated as follows: the patients heart rate is greater than 100 beats per minute (1.5 Pts) patient has experienced immobilization or surgery in the last four weeks (1.5 Pts) Total Score: 3-6 points. This patient was found to be at moderate risk for a pulmonary embolism by using the Well's assessment criteria. Immunization status: Pneumococcal vaccine: Influenza vaccine: Data reviewed: vital signs, nurses notes, lab test result(s), EKG, radiologic studies, plain films. Data interpreted: phototypesetting equipment monitor: rate is 135 beats/min, rhythm is regular, Pulse oximetry: on room air is 96 %. Test interpretation: by ED physician or midlevel provider: ECG, plain radiologic studies. 10/10 06:39 Order name: Basic Metabolic Panel [facility] 10/10 06:39 Order name: CBC with Diff [facility] 10/10 06:39 Order name: LFT's [facility] 10/10 06:39 Order name: Magnesium; Complete Time: 07:43 [facility] 10/10 06:39 Order name: NT PRO-BNP; Complete Time: 07:43 [facility] 10/10 06:39 Order name: PT-INR; Complete Time: 07:43 [facility] 10/10 06:39 Order name: Troponin (emerg Dept Use Only); Complete Time: 07:43 [facility] 10/10 06:39 Order name: Blood Culture Adult (2) [facility] 10/10 06:39 Order name: Influenza Screen (a \T\ B); Complete Time: 08:46 dani 10/10 06:39 Order name: Basic Metabolic Panel; Complete Time: 07:43 EDMS 10/10 06:39 Order name: CBC with Automated Diff; Complete Time: 07:43 EDMS 10/10 06:39 Order name: Liver (Hepatic) Function; Complete Time: 07:43 EDMS 10/10 06:46 Order name: ABG; Complete Time: 08:46 dani 10/10 06:49 Order name: Lactate; Complete Time: 07:43 mw2 10/10 07:46 Order name: CBC with Automated Diff EDMS 10/10 07:46 Order name: CBC with Automated Diff EDMS 10/10 07:46 Order name: Comprehensive Metabolic Panel EDMS 10/10 07:46 Order name: Comprehensive Metabolic Panel EDMS 10/10 07:46 Order name: Lactate EDMS 10/10 07:46 Order name: Lactate EDMS 10/10 07:46 Order name: Lipid Profile EDMS 10/10 07:46 Order name: Lipid Profile EDMS 10/10 07:46 Order name: Magnesium EDMS 10/10 07:46 Order name: Magnesium EDMS 10/10 07:46 Order name: NT PRO-BNP EDMS 10/10 07:46 Order name: NT PRO-BNP EDMS 10/10 07:46 Order name: Phosphorus EDMS 10/10 07:46 Order name: Phosphorus EDMS 10/10 07:46 Order name: Protime (+INR) EDMS 10/10 06:39 Order name: XRAY Chest (1 view) [facility] 10/10 06:39 Order name: EKG; Complete Time: 06:39 dani 10/10 07:46 Order name: Protime (+INR) EDMS 10/10 07:46 Order name: PTT, Activated Partial Thromb EDMS 10/10 07:46 Order name: PTT, Activated Partial Thromb EDMS 10/10 07:46 Order name: Troponin I EDMS 10/10 07:46 Order name: Troponin I EDMS 10/10 07:46 Order name: Troponin I EDMS 10/10 08:56 Order name: RAD EDMS 10/10 09:12 Order name: SARS-COV-2 RT PCR EDMS 10/10 10:05 Order name: Lactate Sepsis 2 HR Follow-up EDMS 10/10 14:50 Order name: Lactate EDMS 10/10 15:08 Order name: Procalcitonin [facility] 10/10 15:11 Order name: Comprehensive Metabolic Panel [facility] 10/10 15:11 Order name: Phosphorus [facility] 10/10 15:11 Order name: NT PRO-BNP [facility] 10/10 15:11 Order name: Magnesium [facility] 10/10 15:24 Order name: CBC with Automated Diff [facility] 10/10 15:38 Order name: D-Dimer [facility] 10/10 06:39 Order name: Cardiac monitoring; Complete Time: 06:55 [facility] 10/10 06:39 Order name: EKG - Nurse/Tech; Complete Time: 06:55 [facility] 10/10 06:39 Order name: IV Saline Lock; Complete Time: 06:55 [facility] 10/10 06:39 Order name: Labs collected and sent; Complete Time: 06:55 [facility] 10/10 06:39 Order name: O2 Per Protocol; Complete Time: 06:55 [facility] 10/10 06:39 Order name: O2 Sat Monitoring; Complete Time: 06:55 [facility] 10/10 06:39 Order name: Mccain; Complete Time: 06:51 [facility] 10/10 07:46 Order name: CONS Physician Consult [facility] 10/10 07:46 Order name: Respiratory Therapy Consult [facility] 10/10 07:46 Order name: NPO [facility] 10/10 08:00 Order name: NG Tube; Complete Time: 08:00 sg EC:50 Rate is 134 beats/min. Rhythm is regular. QRS [place] is Normal. AL interval is normal. dani QRS interval is normal. QT interval is normal. No Q waves. T waves are Normal in leads I, aVL, V4, V5, V6. Clinical impression: Sinus tachycardia. Interpreted by me. Reviewed by me. Administered Medications: 06:20 Drug: SOLU-Medrol 125 mg Route: IVP; Site: left antecubital; rr5 07:00 Follow up: Response: No adverse reaction jl7 06:35 Drug: AtroVENT Aerosol 0.5 mg Route: Inhalation; mg2 06:40 Drug: Pepcid 20 mg Route: IVP; Site: left forearm; mg2 07:00 Follow up: Response: No adverse reaction jl7 06:40 Drug: Zofran (Ondansetron) 4 mg Route: IVP; Site: left forearm; mg2 07:00 Follow up: Response: No adverse reaction jl7 06:53 Drug: Xopenex 3.75 mg Route: Inhalation; mg2 07:05 Drug: Versed 4 mg Route: IVP; Site: left antecubital; bp 11:34 Follow up: Response: No adverse reaction jl7 07:05 Drug: Etomidate 20 mg Route: IVP; Site: left antecubital; bp 07:06 Follow up: Response: No adverse reaction jl7 07:40 Drug: Versed 2 mg Route: IVP; Site: right femoral; jl7 07:45 Follow up: Response: No adverse reaction 7 07:45 Drug: Versed 2 mg Route: IVP; Site: right femoral; jl7 07:50 Follow up: Response: No adverse reaction 08:00 Drug: Zosyn 3.375 grams Route: IVPB; Infused Over: 60 mins; Site: right femoral; jl7 09:00 Follow up: Response: No adverse reaction; IV Status: Completed infusion 08:00 Drug: Propofol 5 mcg/kg/min Route: IV; Rate: calculated rate; Site: right femoral; jl7 08:00 Follow up: Response: No adverse reaction; IV Status: Infusion continued upon admission 7 08:00 Drug: Tylenol Suppository 650 mg Route: AL; jl7 11:33 Follow up: Response: No adverse reaction 08:30 Drug: NS 0.9% 1000 ml Route: IV; Rate: 125 ml/hr; Site: right femoral; jl7 08:30 Follow up: IV Status: Infusion continued upon admission jl7 Disposition: 10/10/20 07:22 Hospitalization ordered by Nick Lake for Inpatient Admission. Preliminary diagnosis are Chronic obstructive pulmonary disease with (acute) exacerbation, Respiratory failure, unspecified, Unspecified kidney failure, Hyperkalemia. - Bed requested for [facility] ER HOLD. - Status is Inpatient Admission. dm5 - Condition is Serious. - Problem is new. - Symptoms have improved. Signatures: Dispatcher [employer] EDMS Brooklyn Neil RN RN dm5 Evangelist Box RN RN sg Anderson, Corey, MD MD cha Rittger, Kevin, MD MD kdr Leal, Jahala, RN RN jl7 Eladio Garcia RN RN bp Derrek Beasley RN RN mg2 Singleton, Isaiah, RN RN rr5 Corrections: (The following items were deleted from the chart) 07:44 07:22 Hospitalization Ordered by Nick Lake MD for Inpatient Admission. Preliminary dani diagnosis is Chronic obstructive pulmonary disease with (acute) exacerbation; Respiratory failure, unspecified. Bed requested for Intensive Care Unit. Status is Inpatient Admission. Condition is Serious. Problem is new. Symptoms have improved. [facility] 07:56 06:39 CORONAVIRUS+MR.LAB.BRZ ordered. EDLA EDLA 09:51 07:44 10/10/2020 07:22 Hospitalization Ordered by Nick Lake MD for Inpatient bp Admission. Preliminary diagnosis is Chronic obstructive pulmonary disease with (acute) exacerbation; Respiratory failure, unspecified; Unspecified kidney failure; Hyperkalemia. Bed requested for Intensive Care Unit. Status is Inpatient Admission. Condition is Serious. Problem is new. Symptoms have improved. [facility] 18:21 09:51 10/10/2020 07:22 Hospitalization Ordered by Nick Lake MD for Inpatient dm5 Admission. Preliminary diagnosis is Chronic obstructive pulmonary disease with (acute) exacerbation; Respiratory failure, unspecified; Unspecified kidney failure; Hyperkalemia. Bed requested for [facility] ER HOLD. Status is Inpatient Admission. Condition is Serious. Problem is new. Symptoms have improved. bp
--- NOTE | 2020-10-10 07:23 | ER ---
Nurse's Notes [facility] Name: Michelle Benson Age: 80 yrs Sex: Female : 1940 Arrival Date: 10/10/2020 Time: 06:27 Bed 2 Private MD: Diagnosis: Chronic obstructive pulmonary disease with (acute) exacerbation;Respiratory failure, unspecified;Unspecified kidney failure;Hyperkalemia Presentation: 10/10 06:32 Chief complaint: EMS states: she was having shortness of breath, on scene she was mg2 already on bipap but her saturation is on the 70%. patient is on DNR and they refused intubation for her. Coronavirus screen: Client presents with at least one sign or symptom that may indicate coronavirus-19. Standard/surgical mask placed on the client. Provider contacted for isolation considerations. Ebola Screen: No symptoms or risks identified at this time. Initial Sepsis Screen: Does the patient meet any 2 criteria? RR > 20 per min. HR > 90 bpm. Does the patient have a suspected source of infection? Yes: Productive cough/pneumonia. Risk Assessment: Do you want to hurt yourself or someone else? Patient reports no desire to harm self or others. Onset of symptoms was October 10, 2020. 06:32 Method Of Arrival: EMS[place] [facility] [place] Acuity: RHIANNON 1 mg2 Triage Assessment: 06:40 General: Appears distressed. mg2 06:40 General: Behavior is cooperative. Cardiovascular: Rhythm is sinus tachycardia. mg2 Respiratory: Respiratory effort is labored, Respiratory pattern is tachypnea Onset: The symptoms/episode began/occurred this morning, the patient has severe shortness of breath. Respiratory: Patient placed on BiPAP: FiO2%: 100. GI: Pt is actively vomiting bile. :. Historical: - Allergies: 06:35 Codeine; mg2 06:35 perindopril erbumine; mg2 - Home Meds: 07:28 aspirin 81 mg Oral TbEC 1 tab once daily [Active]; Ambien 5 mg Oral tab nightly bp [Active]; bupropion HCl 100 mg Oral tab 1 tab 2 times per day [Active]; citalopram 40 mg tab 1 tab once daily [Active]; clopidogrel 75 mg Oral tab 1 tab once daily [Active]; Crestor 10 mg Oral tab 1 tab once daily [Active]; Daliresp 500 mcg Oral tab 1 tab once daily [Active]; hydralazine 25 mg Oral tab as needed [Active]; Brovana 15 mcg/2 mL inhalation nebu 2 mL 2 times per day [Active]; ipratropium-albuterol 0.5 mg-3 mg(2.5 mg base)/3 mL Inhl nebu 4 times per day [Active]; levothyroxine 100 mcg tab 1 tab once daily [Active]; losartan 50 mg Oral tab once daily [Active]; Lyrica 75 mg Oral 1 cap daily [Active]; metoprolol tartrate 12.5 mg Oral tab 1 tab 2 times per day [Active]; Oxygen \T\ 2L PRN and at night [Active]; pantoprazole 40 mg Oral TbEC 1 tab once daily [Active]; potassium chloride 20 mEq Oral TbER 1 tab once daily [Active]; prednisone 5 mg Oral tab once daily [Active]; Spiriva Respimat 2.5 mcg/actuation inhalation mist 2 puffs once daily [Active]; spironolactone 50 mg Oral tab 1 tab 2 times per day [Active]; tramadol 50 mg Oral tab 1 tab as needed [Active]; Ventolin HFA 90 mcg/actuation Nebulizer HFAA 2 puffs every 4 hours [Active]; - PMHx: 06:35 CAD; cancer- breast L side, throat, L ear; CHEMO; CHF; COPD; Depression; GERD; mg2 - Immunization history:: Flu vaccine status is unknown. - Social history:: Smoking status: unknown. - Family history:: not pertinent. Screenin:00 Abuse screen: Denies threats or abuse. Denies injuries from another. Nutritional mg2 screening: No deficits noted. Tuberculosis screening: No symptoms or risk factors identified. Fall Risk IV access (20 points). Assessment: 06:55 Reassessment: family decided to do intubation for the patient. mg2 07:00 General: Appears distressed, Behavior is unresponsive. RECD REPORT FROM KIMBERLEE ROBERTSON. bp 80YO WF P/W DYSPNEA AND RESP DISTRESS. INTUBATION IN PROCESS. Pain: Unable to use pain scale. Patient is unresponsive. Neuro: Level of Consciousness is unresponsive. Cardiovascular: Rhythm is sinus tachycardia. Respiratory: Airway via oral intubation Respiratory effort is shallow, weak, Breath sounds are coarse bilaterally. GI: No signs and/or symptoms were reported involving the gastrointestinal system. : No signs and/or symptoms were reported regarding the genitourinary system. EENT: No deficits noted. Derm: No deficits noted. Musculoskeletal: No deficits noted. Vital Signs: 06:32 BP 136 / 92; Pulse 135; Resp 35; Temp 97.6(TE); Pulse Ox 96% on 15% Nebulizer Mask; bp Weight 72.57 kg; 07:00 BP 89 / 53; Pulse 117; Resp 0; Pulse Ox 96% ; bp 07:10 BP 97 / 70; Pulse 114; Resp 18; Pulse Ox 100% ; bp ED Course: 06:15 Patient has correct armband on for positive identification. Placed in gown. Bed in low rr5 position. Call light in reach. Side rails up X2. school lunch monitor on. Pulse ox on. NIBP on. 06:20 EKG done, by ED staff, reviewed by Quincy Cantor MD. Inserted saline lock: 20 gauge in rr5 right hand, using aseptic technique. Blood collected. 06:22 Inserted saline lock: 20 gauge in left antecubital area, using aseptic technique. rr5 06:27 Patient arrived in ED. cl3 06:31 Quincy Cantor MD is Attending Physician. dani 06:32 Derrek Beasley RN is Primary Nurse. mg2 06:35 Triage completed. mg2 06:45 Inserted saline lock: 20 gauge in left forearm, using aseptic technique. Blood mg2 collected. 07:00 Assisted provider with intubation using 7.5 mm ETT via oral route. ET tube secured at bp 23cm at the lips. Set up intubation tray. Intubated by Quincy Cantor MD Placement verified by CO2 detector w/ + color change, auscultating bilateral breath sounds, CXR, Patient tolerated well. Mccain cath inserted, using sterile technique, 16 Fr.. 07:00 Arm band placed on right wrist. jl7 07:13 Assisted provider with central line placement. Set up central line tray. Triple lumen bp line placed in right femoral. Line placed by Quincy Cantor MD Placement verified by blood return, Dressed with Tegaderm, Patient tolerated well. EMERGENT Before procedure, did Practitioner(s) obtain informed consent? No. Patient \T\ family education about procedure, CLABSI prevention and S/S of infection? No. Time-out/Briefing performed prior to start of procedure? Yes. Was handwashing/sanitizing done immediately prior to procedure? Yes. Was patient positioned to in a way to prevent air embolism? Yes. Was procedure site sterilized? Yes, with chlorhexidine. Was the site allowed to dry? Yes. Was local anesthetic and/or sedation utilized? N/A. During the procedure, did the Practitioner(s) maintain a sterile field? Yes. Were unused ports clamped during insertion? Yes. Was a 2nd qualified MD obtained after 3 unsuccessful insertion attempts? N/A. Was blood aspirated from each lumen? Yes. After the procedure, did the Practitioner(s) clean the site and apply a sterile dressing? Yes. 07:20 Nick Lake MD is Hospitalizing Provider. dani 07:38 NGT: inserted 14 Fr. via right nare. verified placement of air over stomach, verified sg return of gastric contents, to intermittent suction. Returned gastric contents. Patient tolerated well. 08:00 Patient admitted, IV remains in place. intact, No redness/swelling at site. jl7 14:43 Primary Nurse role handed off by Derrek Beasley, AILYN em1 16:13 Cindy Kendall, AILYN is Primary Nurse. jl7 Administered Medications: 06:20 Drug: SOLU-Medrol 125 mg Route: IVP; Site: left antecubital; rr5 07:00 Follow up: Response: No adverse reaction jl7 06:35 Drug: AtroVENT Aerosol 0.5 mg Route: Inhalation; mg2 06:40 Drug: Pepcid 20 mg Route: IVP; Site: left forearm; mg2 07:00 Follow up: Response: No adverse reaction jl7 06:40 Drug: Zofran (Ondansetron) 4 mg Route: IVP; Site: left forearm; mg2 07:00 Follow up: Response: No adverse reaction jl7 06:53 Drug: Xopenex 3.75 mg Route: Inhalation; mg2 07:05 Drug: Versed 4 mg Route: IVP; Site: left antecubital; bp 11:34 Follow up: Response: No adverse reaction jl7 07:05 Drug: Etomidate 20 mg Route: IVP; Site: left antecubital; bp 07:06 Follow up: Response: No adverse reaction jl7 07:40 Drug: Versed 2 mg Route: IVP; Site: right femoral; jl7 07:45 Follow up: Response: No adverse reaction 07:45 Drug: Versed 2 mg Route: IVP; Site: right femoral; 7 07:50 Follow up: Response: No adverse reaction 08:00 Drug: Zosyn 3.375 grams Route: IVPB; Infused Over: 60 mins; Site: right femoral; 09:00 Follow up: Response: No adverse reaction; IV Status: Completed infusion 08:00 Drug: Propofol 5 mcg/kg/min Route: IV; Rate: calculated rate; Site: right femoral; 08:00 Follow up: Response: No adverse reaction; IV Status: Infusion continued upon admission 08:00 Drug: Tylenol Suppository 650 mg Route: ME; 11:33 Follow up: Response: No adverse reaction 08:30 Drug: NS 0.9% 1000 ml Route: IV; Rate: 125 ml/hr; Site: right femoral; 08:30 Follow up: IV Status: Infusion continued upon admission Outcome: 07:22 Decision to Hospitalize by Provider. dani 08:00 Admitted to ER Hold. Please see [facility] for further documentation. jl7 08:00 critical 08:00 Discharge instructions given to family, Instructed on the need for admit, Demonstrated understanding of instructions. 18:21 Patient left the ED. dm5 Signatures: Brooklyn Neil RN RN dm5 Evangelist Box RN RN sg Anderson, Corey, MD MD cha Martinez, Eric em1 Cindy Kendall RN RN jl7 Eladio Garcia RN RN bp Gardose, Michele, RN RN mg2 Isaiah Singleton RN RN rr5 Suze Sorto cl3 Corrections: (The following items were deleted from the chart) 07:44 06:32 BP 136 / 92; Pulse 135bpm; Resp 35bpm; Pulse Ox 96% 02 15% Nebulizer Mask; Temp bp 97.6F Temporal; mg2 07:59 07:38 NGT: inserted 12 Fr. other OG verified return of gastric contents, to sg intermittent suction. Returned gastric contents. Returned bile. Patient tolerated unresponsive jl7
[2020-10-10] MEDS ORDERED: propofoL 1,000 MG/100 ML VIAL IV PRN (07:42)
[2020-10-10] MEDS ORDERED: ONDANSETRON 4 MG/2 ML VIAL IV PRN (07:42)
[2020-10-10] MEDS ORDERED: propofoL 1,000 MG/100 ML VIAL IV ONE (07:57)
[2020-10-10] MEDS: NA CHLORIDE 0.9% 1,000 ML IV SCH (08:00)
[2020-10-10] MEDS: Levofloxacin500mg IV 500 MG/100 ML BAG IV SCH (08:00)
[2020-10-10] MEDS ORDERED: ACETAMINOPHEN 650MG/RECT SUPP PR ONE (08:02)
[2020-10-10 08:32] LABS: Arterial Blood Carboxyhemoglob 0.7 % (0-1.5); Blood Gas Oxyhemoglobin 96.8 % (94-97); Blood O2 Saturation 98.7 % (92-98.5)
[2020-10-10] MEDS: IPRATROPIUM BROM 0.5MG/2.5ML NEB SCH ×3 (08:48→19:25)
[2020-10-10] MEDS: ALBUTEROL 2.5 MG/3 ML NEB SOL NEB SCH ×3 (08:48→19:25)
--- NOTE | 2020-10-10 08:56 | RAD REPORT ---
EXAM DESCRIPTION: Smith Single View10/10/2020 8:17 am CLINICAL HISTORY: Shortness of breath COMPARISON: May 2020 FINDINGS: Moderate left lung opacities. Mild interstitial right lung opacities unchanged presumably chronic Heart is mildly enlarged. Endotracheal tube has its tip 7.5 centimeters above the rachid. NG tube within the stomach IMPRESSION: Moderate left lung opacities may indicate pneumonia
[2020-10-10] MEDS ORDERED: ALBUTEROL 2.5 MG/3 ML NEB SOL ONE ×3 (08:59→19:39)
[2020-10-10] MEDS ORDERED: ENOXAPARIN 40 MG/0.4 ML SQ SCH ×2 (09:00→17:00)
[2020-10-10] MEDS ORDERED: IPRATROPIUM BROM 0.5MG/2.5ML ONE ×3 (09:00→19:39)
[2020-10-10] MEDS ORDERED: NOREPINEPHRINE 4mg/D5W 250mL 0 MG/0 ML BAG IV ONE (09:54)
[2020-10-10] MEDS: ENOXAPARIN 30 MG/0.3 ML SQ SCH (10:00)
[2020-10-10] MEDS ORDERED: ENOXAPARIN 30 MG/0.3 ML SQ ONE (10:45)
[2020-10-10] MEDS ORDERED: Levofloxacin500mg IV 500 MG/100 ML BAG IV ONE (10:45)
[2020-10-10] MEDS ORDERED: LORazepam 2 MG/ML VIAL IV PRN (11:37)
[2020-10-10] MEDS: METHYLPREDNISOLONE 125 MG INJ IV SCH ×2 (12:00→20:14)
[2020-10-10] MEDS ORDERED: PIPER/TAZO/NS 3.375gm 3.375 GM/100 ML BAG IVPB SCH (12:00)
[2020-10-10] MEDS: PIPER/TAZO/NS 2.25gm 2.25 GM/50 ML BAG IVPB SCH ×2 (12:00→20:14)
[2020-10-10] MEDS ORDERED: LORazepam 2 MG/ML VIAL ONE (12:16)
[2020-10-10] MEDS ORDERED: ACETAMINOPHEN 500 MG TAB ONE ×2 (12:16→12:30)
[2020-10-10] MEDS ORDERED: FENTANYL CITR 100 MCG/2 ML ONE (12:16)
[2020-10-10] MEDS ORDERED: PIPER/TAZO/NS 2.25gm 2.25 GM/50 ML BAG ONE ×2 (12:17→20:22)
[2020-10-10] MEDS: LORazepam 2 MG/ML VIAL IV PRN (12:30)
[2020-10-10] MEDS: ACETAMINOPHEN 500 MG TAB FT PRN (12:40)
--- NOTE | 2020-10-10 13:02 | P.CNS ---
Date of Consult: 10/10/20 Reason for Consult: Respiratory failed Chief Complaint: Respiratory distress History of Present Illness: Patient is 80 years of age well known to me she has terminal COPD multiple other medical problems is about 2 days ago she became worse acutely short of breath admitted to the hospital although she is DNR family members decided to have her intubated she is currently alert responsive cooperative on the ventilator Allergies codeine Allergy (Verified 01/10/18 02:21) Unknown perindopril erbumine [From Aceon] Allergy (Verified 01/10/18 02:21) UNKNOWN Home Medications: Acetaminophen [Acetaminophen ER] 650 mg PO PRN PRN 09/03/18 Albuterol Inhaler [Ventolin Inhaler*] 2 puff IH Q4H PRN 09/03/18 Buproprion S.r. [Wellbutrin Sr*] 100 mg PO BID 09/03/18 Citalopram [Celexa*] 40 mg PO DAILY 09/03/18 Hydralazine [Apresoline*] 25 mg PO DAILY PRN 09/03/18 Ipratropium/Albuterol Sulfate [Iprat-Albut 0.5-3(2.5) mg/3 ml] 3 ml PO QID PRN 09/03/18 Levothyroxine [Synthroid*] 100 mcg PO [id number] 09/03/18 Pantoprazole Sodium [Protonix] 40 mg PO DAILY 09/03/18 Pregabalin [Lyrica*] 75 mg PO BEDTIME 09/03/18 Roflumilast [Daliresp*] 500 mcg PO DAILY 09/03/18 Rosuvastatin [Crestor*] 10 mg PO BEDTIME 09/03/18 Spironolactone [Aldactone] 50 mg PO BID 09/03/18 Tramadol HCl [Ultram] 50 mg PO Q6HP PRN 09/03/18 Zolpidem Tartrate [Ambien*] 5 mg PO BEDTIME PRN 09/03/18 Aspirin Chewable [Aspirin Chewable*] 81 mg PO DAILY 05/15/20 Docusate Sodium [Stool Softener] 50 mg PO DAILY 05/15/20 Fluticasone/Umeclidin/Vilanter [Trelegy Ellipta 100-62.5-25] 1 each IH DAILY 05/15/20 Furosemide [Lasix*] 20 mg PO DAILY PRN 05/15/20 Losartan Potassium [Cozaar*] 50 mg PO DAILY 05/15/20 Metoprolol Tartrate [Lopressor*] 12.5 mg PO BID 05/15/20 predniSONE [Deltasone] 5 mg PO DAILY 05/15/20 levoFLOXacin [Levaquin] 500 mg PO DAILY #7 tab 05/16/20 predniSONE [Deltasone*] 10 mg PO BID 7 Days #14 tab 05/16/20 - Past Medical/Surgical History Diabetic: No -: History of breast cancer -: History of throat cancer -: Hypertension -: Hypothyroidism -: COPD, steroid and oxygen-dependent -: Peripheral vascular disease -: Carotid arterial disease -: CHF -: Hyperlipidemia -: Obstructive sleep apnea -: Neuropathy -: Tobacco abuse -: Hysterectomy -: Hemorrhoidectomy -: Radiation to the vocal cords -: Stents to the lower extremity and carotid -: Bilateral eye surgery -: Left-sided mastectomy -: chemotherapy Psychosocial/ Personal History: Patient is . She has children. She does not work. - Family History Father Medical History: Heart disease Mother Medical History: Cancer Sister Medical History: Cancer Notes: Brother Medical History: Heart disease Notes: - Social History Smoking Status: Current every day smoker Alcohol use: No CD- Drugs: No Caffeine use: No Review of Systems is unable to be obtained Physical Examination General: Alert, Cooperative Respiratory: Crackles/rales (Crackles worse on the left side), Expiratory wheezes Cardiovascular: No edema, Regular rate/rhythm Gastrointestinal: Normal bowel sounds, Soft and benign Laboratory Data (last 24 hrs) 10/10/20 06:45: PT 11.4, INR 0.97 10/10/20 06:45: WBC 7.9, Hgb 13.6, Hct 42.5, Plt Count 188 10/10/20 06:45: Sodium 135 L, Potassium 5.2 H, BUN 46 H, Creatinine 2.67 H, Glucose 127 H, Magnesium 2.0, Total Bilirubin 0.5, AST 18, ALT 15, Alkaline Phosphatase 60 - Problems (1) Respiratory failure Current Visit: Yes Status: Acute Plan: Patient is 89 years of age with a history of terminal COPD admitted respiratory failure possibly and pneumonia predominant involving the left lung she is very debilitated baseline uses an noninvasive ventilator patient's renal function is significantly worse patient was hypoxic hypercarbic prognosis is very poor will Re evaluated tomorrow is patient's wishes not to be on a ventilator sputum culture blood cultures pending continue with IV fluids Qualifiers: Chronicity: acute on chronic
[2020-10-10] MEDS: FENTANYL CITR 100 MCG/2 ML IV PRN (13:45)
[2020-10-10 14:52] LABS: Albumin 2.5 g/dL (3.4-5.0); Bilirubin Total 0.5 mg/dL (0.2-1.0); Magnesium 1.8 mg/dL (1.8-2.4); Phosphorus 3.7 mg/dL (2.5-4.9); Potassium 5.3 mmol/L (3.5-5.1); Protein, Total 4.8 g/dL (6.4-8.2)
[2020-10-10 15:20] LABS: Absolute Lymphocytes (CBC) 0.1 K/uL (0.7-4.9); Basophils % 0.2 % (0-1.3); Lymphocytes % 2.1 % (15.3-44.8); MPV 8.7 fL (7.6-11.3); RBC Red Blood Cell Count 3.65 M/uL (3.86-4.86)
[2020-10-10] MEDS ORDERED: NA CHLORIDE 0.9% 1,000 ML ONE ×2 (16:36→20:21)
--- NOTE | 2020-10-10 18:30 | RAD REPORT ---
EXAM DESCRIPTION: US - Renal Ultrasound-Complete - 10/10/2020 6:16 pm CLINICAL HISTORY: HEATHER Flank pain COMPARISON: Renal Ultrasound-Complete dated 06/19/2018 FINDINGS: Left kidney appears small in size and echogenic suggesting left renal atrophy. Right kidne y is mildly echogenic as well. The right kidney measures 10.4 x 6.5 cm. No hydronephrosis, focal mass or perinephric fluid. The left kidney measures 7.5 x 4.8 cm. No hydronephrosis, focal mass or perinephric fluid. The urinary bladder is incompletely distended without gross abnormality seen. IMPRESSION: Mildly echogenic kidneys noted likely indicating medical renal disease.
[2020-10-10] MEDS ORDERED: NOREPINEPHRINE 4mg/D5W 250mL 4 MG/250 ML BAG IV ONE (20:23)
[2020-10-10 21:43] LABS: Blood Morphology Comment NOT SEEN (NOT SEEN); Platelet Estimate DECR
[2020-10-11] MEDS ORDERED: METHYLPREDNISOLONE 125 MG INJ ONE ×2 (00:06→04:00)
[2020-10-11] MEDS ORDERED: PIPER/TAZO/NS 2.25gm 2.25 GM/50 ML BAG ONE (00:06)
[2020-10-11] MEDS: PIPER/TAZO/NS 2.25gm 2.25 GM/50 ML BAG IVPB SCH ×2 (01:05→05:50)
[2020-10-11] MEDS: METHYLPREDNISOLONE 125 MG INJ IV SCH ×2 (01:06→05:50)
[2020-10-11] MEDS: NA CHLORIDE 0.9% 1,000 ML IV SCH ×2 (01:06→04:00)
[2020-10-11] MEDS: LORazepam 2 MG/ML VIAL IV PRN (01:35)
[2020-10-11] MEDS ORDERED: LORazepam 2 MG/ML VIAL ONE (01:46)
[2020-10-11] MEDS: ALBUTEROL 2.5 MG/3 ML NEB SOL NEB SCH ×4 (02:25→21:05)
[2020-10-11] MEDS: IPRATROPIUM BROM 0.5MG/2.5ML NEB SCH ×4 (02:25→21:05)
[2020-10-11] MEDS ORDERED: IPRATROPIUM BROM 0.5MG/2.5ML ONE ×4 (02:29→21:20)
[2020-10-11] MEDS ORDERED: ALBUTEROL 2.5 MG/3 ML NEB SOL ONE ×4 (02:29→21:20)
[2020-10-11] MEDS ORDERED: PIPERACIL/TAZO 4.5 GM VIAL IV ONE (04:01)
[2020-10-11] MEDS ORDERED: NA CHLORIDE 0.9% 100 ML ONE (04:02)
[2020-10-11 04:36] LABS: Protime INR 1.25
[2020-10-11 04:48] LABS: Absolute Lymphocytes (CBC) 0.1 K/uL (0.7-4.9); Basophils % 0.9 % (0-1.3); Hematocrit 33.5 % (36.0-45.0); Lymphocytes % 1.1 % (15.3-44.8); MPV 8.6 fL (7.6-11.3); RBC Red Blood Cell Count 3.57 M/uL (3.86-4.86)
[2020-10-11 05:04] LABS: Albumin 2.4 g/dL (3.4-5.0); Bilirubin Total 0.4 mg/dL (0.2-1.0); Magnesium 1.9 mg/dL (1.8-2.4); Protein, Total 5.3 g/dL (6.4-8.2)
[2020-10-11 05:07] LABS: Potassium 5.8 mmol/L (3.5-5.1)
[2020-10-11] MEDS ORDERED: SOD POLYSTYREN SUL 15 GM/60 ML UCUP PO ONE (05:24)
[2020-10-11] MEDS ORDERED: SOD POLYSTYREN SUL 15 GM/60 ML UCUP ONE (05:48)
[2020-10-11] MEDS ORDERED: D5W 1,000 ML IV ONE (05:56)
[2020-10-11] MEDS ORDERED: SODIUM BICARB 50 MEQ/50ML VIAL ONE (05:56)
[2020-10-11] MEDS ORDERED: D5W 1,000 ML with NA BICARB 8.4% 100 MEQ IV SCH ×2 (06:00)
[2020-10-11] MEDS: FENTANYL CITR 100 MCG/2 ML IV PRN (06:00)
[2020-10-11] MEDS ORDERED: FENTANYL CITR 100 MCG/2 ML ONE (06:12)
--- NOTE | 2020-10-11 07:21 | P.HP ---
Certification for Inpatient Patient admitted to: Inpatient With expected LOS: >2 Midnights Patient will require the following post-hospital care: None Practitioner: I am a practitioner with admitting privileges, knowledge of patient current condition, hospital course, and medical plan of care. Services: Services provided to patient in accordance with Admission requirements found in Title 42 Section 412.3 of the Code of Federal Regulations Patient History Date of Service: 10/10/20 Reason for admission: Respiratory distress History of Present Illness: Patient is a 80-year-old female who came in through the ER after being found with respiratory distress. She had called out to her daughter that evening on 2 different occasions that she was having a hard time breathing. The 2nd time she had low oxygen level so EMS was called out. When EMS arrived patient was tachypneic and in respiratory distress. Patient was placed on 100% NRB & brought into the emergency room. Patient was noted to be a DNAR at that time. Patient continued to have respiratory distress and the emergency room physician was told that the family did want everything done. At that time patient was intubated and central line was placed. Patient was also started on low-dose Levophed. Patient was given IV antibiotic therapy as well. Patient was noted to have significantly worse renal failure as well. She had been taking Lasix since daily. He it was a p.r.n. medication but because she has some fluid in her lower extremity she has started taking it every day. Family also mentioned that patient's a few days ago. This has been very hard on the whole family. At this time, they want to seehoe their mother does and see if she has improvement. And if she does not then they are considering withdrawing care. Allergies codeine Allergy (Verified 01/10/18 02:21) Unknown perindopril erbumine [From Aceon] Allergy (Verified 01/10/18 02:21) UNKNOWN Home Medications: Albuterol Inhaler [Ventolin Inhaler*] 2 puff IH Q4H PRN 09/03/18 Buproprion S.r. [Wellbutrin Sr*] 100 mg PO BID 09/03/18 Citalopram [Celexa*] 40 mg PO DAILY 09/03/18 Hydralazine [Apresoline*] 25 mg PO DAILY PRN 09/03/18 Ipratropium/Albuterol Sulfate [Iprat-Albut 0.5-3(2.5) mg/3 ml] 3 ml PO QID PRN 09/03/18 Levothyroxine [Synthroid*] 100 mcg PO [id number] 09/03/18 Pantoprazole Sodium [Protonix] 40 mg PO DAILY 09/03/18 Pregabalin [Lyrica*] 75 mg PO BEDTIME 09/03/18 Roflumilast [Daliresp*] 500 mcg PO DAILY 09/03/18 Rosuvastatin [Crestor*] 10 mg PO BEDTIME 09/03/18 Spironolactone [Aldactone] 50 mg PO BID PRN 09/03/18 Zolpidem Tartrate [Ambien*] 5 mg PO BEDTIME PRN 09/03/18 Aspirin Chewable [Aspirin Chewable*] 81 mg PO DAILY 05/15/20 Losartan Potassium [Cozaar*] 50 mg PO DAILY 05/15/20 Metoprolol Tartrate [Lopressor*] 12.5 mg PO BID 05/15/20 predniSONE [Deltasone] 5 mg PO DAILY 05/15/20 Albuterol Sulfate [Ventolin Hfa] 2 inhaler IH Q4HR 10/10/20 Arformoterol Tartrate [Brovana] 2 ml IH BID 10/10/20 Clopidogrel Bisulfate [Plavix] 75 mg PO DAILY 10/10/20 Potassium Chloride 20 meq PO DAILY 10/10/20 Tiotropium [place] [Spiriva Respimat] 4 gm IH DAILY 10/10/20 - Past Medical/Surgical History Diabetic: No -: History of breast cancer -: History of throat cancer -: Hypertension -: Hypothyroidism -: COPD, steroid and oxygen-dependent -: Peripheral vascular disease -: Carotid arterial disease -: CHF -: Hyperlipidemia -: Obstructive sleep apnea -: Neuropathy -: Tobacco abuse -: Hysterectomy -: Hemorrhoidectomy -: Radiation to the vocal cords -: Stents to the lower extremity and carotid -: Bilateral eye surgery -: Left-sided mastectomy -: chemotherapy Psychosocial/ Personal History: Patient is . She has children. She does not work. - Family History Father Medical History: Heart disease Mother Medical History: Cancer Sister Medical History: Cancer Notes: Brother Medical History: Heart disease Notes: - Social History Alcohol use: No CD- Drugs: No Caffeine use: No Review of Systems is unable to be obtained Physical Examination - Vital Signs Temperature: 99.0 F Blood Pressure: 166/60 Pulse: 97 Respirations: 18 Pulse Ox (%): 99 - Physical Exam General: Other (Intubated and sedated) HEENT: Atraumatic, Normocephalic Neck: Supple, 2+ carotid pulse no bruit, JVD not distended Respiratory: Diminished, Crackles/rales, Expiratory wheezes Cardiovascular: Regular rate/rhythm, Normal S1 S2, Systolic murmur Gastrointestinal: Normal bowel sounds, Soft and benign, Non-distended, No tenderness Musculoskeletal: No clubbing, Swelling Neurological: Other (Intubated and sedated and difficult to examine. She moves all her extremities.) - Studies Laboratory Data (last 24 hrs) 10/10/20 06:45: PT 11.4, INR 0.97 10/10/20 06:45: Sodium 135 L, Potassium 5.2 H, BUN 46 H, Creatinine 2.67 H, Glucose 127 H, Magnesium 2.0, Total Bilirubin 0.5, AST 18, ALT 15, Alkaline Phosphatase 60 Microbiology Data (last 24 hrs): 10/10/20 06:39 Nasopharnyx Influenza Type A Antigen Screen - Final 10/10/20 06:39 Nasopharnyx Influenza Type B Antigen Screen - Final Assessment & Plan - Problems (Diagnosis) (1) Septic shock Current Visit: Yes Status: Acute (2) Pneumonia Current Visit: Yes Status: Acute (3) Acute kidney injury Current Visit: Yes Status: Acute (4) Respiratory failure Current Visit: Yes Status: Acute Qualifiers: Chronicity: acute on chronic (5) Chronic obstructive lung disease COPD Current Visit: No Status: Acute (6) History of CHF (congestive heart failure) Current Visit: No Status: Acute (7) Coronary arteriosclerosis Onset Date: 01/11/18 Current Visit: No Status: Chronic (8) Hyperlipidemia Onset Date: 01/11/18 Current Visit: No Status: Chronic Qualifiers: (9) Hypertension Onset Date: 01/11/18 Current Visit: No Status: Chronic Qualifiers: (10) Obstructive sleep apnea Onset Date: 01/11/18 Current Visit: No Status: Chronic - Plan 1. Continue with IV antibiotics 2. Awaiting sputum and blood culture 3. Repeat chest x-ray 4. Echocardiogram and renal Doppler 5. Appreciate pulmonary consultation 6. Continue with nebs and IV steroids 7. O2 per protocol 8. Continue with gentle hydration and continue Levophed drip 9. Repeat labs including CBC and renal function in a.m. Monitor potassium level closely 10. Patient is a do not attempt resuscitation 11. GI and DVT prophylaxis Discharge Plan: Home Plan to discharge in: Greater than 2 days - Advance Directives Does patient have a Living Will: No Does patient have a Durable POA for Healthcare: Yes - Code Status/Comfort Care Code Status Assessed: Yes Code Status: Do Not Attempt Resuscitat Critical Care: Yes Time Spent Managing PTS Care (In Minutes): 90
[2020-10-11] MEDS ORDERED: Levofloxacin500mg IV 500 MG/100 ML BAG IV ONE (07:49)
[2020-10-11] MEDS: Levofloxacin500mg IV 500 MG/100 ML BAG IV SCH (07:59)
[2020-10-11] MEDS ORDERED: FUROSEMIDE 40 MG/4 ML VIAL IV ONE (08:48)
--- NOTE | 2020-10-11 08:50 | RAD REPORT ---
EXAM DESCRIPTION: RAD - Chest Single View - 10/11/2020 6:41 am CLINICAL HISTORY: pneumonia Chest pain. COMPARISON: Chest Single View dated 10/10/2020; Chest Single View dated 05/15/2020; Chest Single View dated 04/05/2019; Chest Pa And Lat (2 Views) dated 09/14/2018 FINDINGS: Portable technique limits examination quality. Bilateral interstitial lung opacities are again noted, mildly progressive since the comparative study . The heart is mildly enlarged in size. Tip of the ET tube is above the rachid. Enteric tube descends into the abdomen although the tip of the enteric tube is not visualized on the projection. IMPRESSION: Mild worsening in lung aeration is seen since comparative examination.
[2020-10-11] MEDS: ENOXAPARIN 30 MG/0.3 ML SQ SCH (09:19)
[2020-10-11] MEDS: FAMOTIDINE 20 MG/2 ML VIAL IV SCH (09:21)
[2020-10-11] MEDS ORDERED: ENOXAPARIN 30 MG/0.3 ML SQ ONE (09:31)
[2020-10-11] MEDS ORDERED: METHYLPREDNISOLONE 40 MG INJ ONE ×2 (09:31→21:41)
[2020-10-11] MEDS ORDERED: FUROSEMIDE 40 MG/4 ML VIAL ONE ×2 (09:31→16:56)
[2020-10-11] MEDS ORDERED: FAMOTIDINE 20 MG/2 ML VIAL IV ONE (09:32)
--- NOTE | 2020-10-11 10:42 | ECHO ---
HEIGHT: 5 ft 4 in WEIGHT: 160 lb 0 oz DATE OF STUDY: 10/10/[address]: Nick Lake MD 2-DIMENSIONAL: YES M.MODE: YES DOPPLER: YES COLOR FLOW: YES TDS: YES PORTABLE: YES DEFINITY: NO BUBBLE STUDY: NO DIAGNOSIS: HYPOTENSION, RESPIRATORY FAILURE CARDIAC HISTORY: CATHERIZATION: YES SURGERY: NO PROSTHETIC VALVE: NO PACEMAKER: NO MEASUREMENTS (cm) DIASTOLIC (NORMALS) SYSTOLIC (NORMALS) IVSd 1.1 (0.6-1.2) LA Diam 3.2 (1.9-4.0) LVEF 60% LVIDd 4.0 (3.5-5.7) LVIDs 2.7 (2.0-3.5) %FS 32% LVPWd 1.3 (0.6-1.2) Ao Diam 2.3 (2.0-3.7) 2 DIMENSIONAL ASSESSMENT: RIGHT ATRIUM: NORMAL LEFT ATRIUM: NORMAL RIGHT VENTRICLE: NORMAL LEFT VENTRICLE: LEFT VENTRICULAR HYPERTROPHY TRICUSPID VALVE: NORMAL MITRAL VALVE: STENOTIC PULMONIC VALVE: NORMAL AORTIC VALVE: STENOTIC PERICARDIAL EFFUSION: NONE AORTIC ROOT: NORMAL LEFT VENTRICULAR WALL MOTION: NORMAL LEFT VENTRICULAR EJECTION FRACTION, DECREASED LEFT VENTRICULAR COMPLIANCE. DOPPLER/COLOR FLOW: MODERATE MIRTAL STENOSIS. MITRAL VALVE AREA 1.5 CENTIMETERS SQUARED. MILD AORTIC STENOSIS. AORTIC VALVE AREA 1.7 CENTIMETERS SQUARED. COMMENTS: MODERATE MIRTAL STENOSIS. MITRAL VALVE AREA 1.5 CENTIMETERS SQUARED. MILD AORTIC STENOSIS. AORTIC VALVE AREA 1.7 CENTIMETERS SQUARED. LEFT VENTRICULAR HYPERTROPHY. MILD TRICUSPID REGURGITATION. NORMAL RIGHT VENTRICULAR SYSTOLIC PRESSURE. NORMAL LEFT VENTRICULAR EJECTION FRACTION. TECHNOLOGIST: Oliver SERNA
--- NOTE | 2020-10-11 12:12 | P.PN ---
Subjective Date of Service: 10/11/20 Chief Complaint: Respiratory distress Subjective: Improving (Patient is improving she is alert responsive cooperative) Review of Systems is unable to be obtained Physical Examination - Vital Signs Temperature: 97.5 F Blood Pressure: 122/67 Pulse: 97 Respirations: 21 Pulse Ox (%): 98 - Physical Exam General: Alert, Cooperative Respiratory: Expiratory wheezes Cardiovascular: No edema, Normal S1 S2 - Studies Microbiology Data (last 24 hrs): 10/10/20 06:39 Nasopharnyx Influenza Type A Antigen Screen - Final 10/10/20 06:39 Nasopharnyx Influenza Type B Antigen Screen - Final Assessment & Plan - Problems (Diagnosis) (1) Respiratory failure Current Visit: Yes Status: Acute Plan: Patient admitted with respiratory failure renal function is worse hyperkalemia Kayexalate given Lasix was also give cultures are all negative Dc Zosyn white count minimally elevated chest x-ray still shows some bilateral changes currently on assist-control will change it to SIMV and pressure support will trial weaning her from the ventilator continue with steroid Dc IV fluid no response to IV fluid renal function in fact worse Qualifiers: Chronicity: acute on chronic
[2020-10-11 13:58] LABS: Urine Appearance CLEAR; Urine Bilirubin NEGATIVE (NEG); Urine Blood 2+ (NEG); Urine Color YELLOW; Urine Glucose NEGATIVE (NEG); Urine Protein NEGATIVE (NEG); Urine Specific Gravity <=1.005 (1.005-1.030); Urine Urobilinogen 0.2 mg/dL (0.2-1.0); Urine pH 5.5 (5.0-7.0)
[2020-10-11 14:02] LABS: Urine Microscopic Reflex ORDER UMIC
[2020-10-11] MEDS ORDERED: METOPROLOL TARTRATE 5 MG/5 ML INJ IV PRN (15:56)
[2020-10-11] MEDS ORDERED: METOPROLOL TARTRATE 5 MG/5 ML INJ IV STA ×5 (16:00→22:43)
[2020-10-11 16:12] LABS: Urine Bacteria <20 /HPF (<20); Urine RBC <5 /HPF (NONE SEEN)
[2020-10-11] MEDS ORDERED: VANCOMYCIN 1 GM in NA CHLORIDE 0.9% 500 ML IVPB ONE (16:33)
[2020-10-11] MEDS: FUROSEMIDE 40 MG/4 ML VIAL IV SCH (16:59)
[2020-10-11 17:04] LABS: Arterial Blood Carboxyhemoglob 1.1 % (0-1.5); Blood O2 Saturation 94.1 % (92-98.5)
[2020-10-11] MEDS ORDERED: VANCOMYCIN 1 GM/VIAL ONE (18:08)
[2020-10-11] MEDS ORDERED: NA CHLORIDE 0.9% 500 ML ONE (18:08)
[2020-10-11] MEDS ORDERED: METOPROLOL TARTRATE 5 MG/5 ML INJ IV ONE ×4 (20:15→23:00)
[2020-10-11] MEDS ORDERED: DIGOXIN 0.25 MG/ML AMP IV ONE (21:09)
[2020-10-11] MEDS: METOPROLOL TAR 50 MG TAB PO SCH (21:28)
[2020-10-11] MEDS: METHYLPREDNISOLONE 40 MG INJ IV SCH (21:28)
--- NOTE | 2020-10-11 21:32 | CON ---
Date of Consultation: 10/11/2020 Chief Complaint: Acute on chronic kidney injury, severe, borderline oliguric, associated with congestive heart failure, respiratory failure, and hyperkalemia with respiratory acidosis. History Of Present Illness: Patient is a 80-year-old female, who came to emergency room after being found in respiratory distress. Patient was having hard time breathing. She denied wheezing, dysphagia. Patient has history of COPD. Patient was evaluated in the emergency room and was started on 100 nonrebreather mask, was intubated in the emergency room and started on low dose of Levophed for hypotension. Antibiotic therapy was started for possible pneumonia. Patient had chest x-ray done, which showed an infiltrate. COVID test was done and was negative. Patient today is extubated. She was awake and alert. She was found to have acute kidney injury, hyperkalemia with elevated potassium up to 5.8. Patient was started on bicarbonate drip for acidosis. Antibiotic therapy was initiated for pneumonia. Review of Systems: Patient has been noted lethargic, could not provide review of systems. Past Medical History: Breast cancer, throat cancer, hypertension, hypothyroidism, COPD, steroid and oxygen dependent, peripheral vascular disease, carotid artery disease, congestive heart failure, chronic and acute with diastolic dysfunction, hyperlipidemia, obstructive sleep apnea, neuropathy, tobacco abuse, hysterectomy, hemorrhoidectomy, radiation to the vocal folds, stent to lower extremity and carotid, bilateral eye surgeries, left-sided mastectomy, chemotherapy, acute kidney injury back in 2019, did not require dialysis. Family History: Heart disease, cancer. Social History: Denies alcohol, illicit drugs. Denies caffeine. Physical Examination: Vital Signs: Blood pressure is 160/75, temperature 99, respiratory rate 18, pulse 97, SpO2 98%. General: Patient is extubated, follows commands. Eyes: Anicteric sclerae. Neck: Supple. No bruits. Lungs: Crackles at bases. No wheezing. Cardiovascular: S1, S2. No pericardial friction rub. Abdomen: Soft, obese, nontender. Extremities: Some peripheral edema. No clubbing. No cyanosis. Neurological: Moving extremities. Follows commands. Laboratory Data: Sodium 135, potassium 5.8, chloride 107, CO2 of 23, BUN 57, creatinine 3.52, glucose 147, calcium 7.0, phosphorus 5.0, magnesium 1.9, AST 79, ALT 24, AP 21, albumin 2.4, total protein 5.3. Troponin 0.06. Urinalysis showed rbc less than 5, wbc less than 5, pH 5.5, specific gravity 1.025, bacteria less than 2, protein is pending. Impression And Plan: 1. Acute on chronic kidney injury, borderline oliguric secondary to acute tubular necrosis in setting of hypotensive episode. Patient was found to have hyperkalemia and acidosis. She was started on bicarbonate drip. She has respiratory failure, history was advanced, history of advanced chronic obstructive pulmonary disease. Patient was extubated today successfully. Patient will continue Lasix for volume control and congestive heart failure. Patient has cardiorenal syndrome. Potassium level is slightly improving with treatment. Patient will continue Lasix for cardiorenal syndrome. Renal ultrasound did not show obstructive uropathy. There are mild echogenic changes of the kidney, likely related to medical renal disease. Plan is to monitor fluid balance. Adjust diuretic as needed. 2. Hypoalbuminemia. Workup for proteinuria can be done outpatient. Previous workup done in 2007 showed mild proteinuria. There is no evidence of abnormal urinary sediment, less likely acute kidney injury is related to nephritis. Plan is to advance workup if renal function does not improve over the next 48 hours. At this point, patient does not have uremic symptomatology. She will continue Lasix for volume control. Monitor urine output. EB/MODL Voice ID: [id number] Report ID: [id number] TOÑITO
[2020-10-11] MEDS ORDERED: DIGOXIN 0.25 MG/ML AMP ONE (21:34)
[2020-10-11] MEDS ORDERED: METOPROLOL TAR 50 MG TAB ONE (21:41)
--- NOTE | 2020-10-11 22:59 | P.PN ---
Date of Service: 10/11/20 Paged due to patient with afib with RVR in 140s. Arrived at bedside. Patient asymptomatic, denies palpitations / dizziness/ chest pain / worsening SOB. HR: 130-140s, BP: 139-160/70s. IV Lopressor 5mg given, EKG confirms afib with RVR. Will give additional dose of IV lopressor Patient with multiple risk factors for Afib, h/o CHF, COPD, current infection, on nebulizers. Family updated. Pt with Thrombocytopenia on chart review. Plt: 117 this morning. down from 188 yesterday. Received 30mg Lovenox this AM. Reviewed risks vs benefits with patient and family. Given trend of platelets decreasing, will hold off on full anticoagulation this evening. Family would like to wait until repeat bloodwork in the morning. If platelets improve, would be agreeable to full anticoagulation. With her renal function and weight, she did receive half dose of Lovenox.
[2020-10-12] MEDS: IPRATROPIUM BROM 0.5MG/2.5ML NEB SCH ×4 (02:57→20:15)
[2020-10-12] MEDS: LEVALBUTEROL 0.63 MG/3 ML NEB NEB SCH ×2 (02:57→08:00)
[2020-10-12] MEDS ORDERED: LEVALBUTEROL 0.63 MG/3 ML NEB ONE ×3 (03:09→20:13)
[2020-10-12] MEDS ORDERED: IPRATROPIUM BROM 0.5MG/2.5ML ONE ×4 (03:09→20:13)
[2020-10-12 05:45] LABS: Absolute Lymphocytes (CBC) 0.1 K/uL (0.7-4.9); Basophils % 0.1 % (0-1.3); Hematocrit 32.3 % (36.0-45.0); Lymphocytes % 0.8 % (15.3-44.8); MPV 9.3 fL (7.6-11.3); RBC Red Blood Cell Count 3.51 M/uL (3.86-4.86)
[2020-10-12 06:14] LABS: Phosphorus 5.6 mg/dL (2.5-4.9); Potassium 4.7 mmol/L (3.5-5.1)
[2020-10-12] MEDS: DIGOXIN 0.25 MG/ML AMP IV SCH ×2 (08:29→14:18)
[2020-10-12] MEDS: METHYLPREDNISOLONE 40 MG INJ IV SCH ×2 (08:30→20:53)
[2020-10-12] MEDS: FUROSEMIDE 40 MG/4 ML VIAL IV SCH ×2 (08:30→17:00)
[2020-10-12] MEDS: FAMOTIDINE 20 MG/2 ML VIAL IV SCH (08:30)
[2020-10-12] MEDS ORDERED: METHYLPREDNISOLONE 40 MG INJ ONE ×2 (08:38→20:31)
[2020-10-12] MEDS ORDERED: METOPROLOL TAR 50 MG TAB ONE ×2 (08:38→20:31)
[2020-10-12] MEDS ORDERED: FUROSEMIDE 40 MG/4 ML VIAL ONE (08:39)
[2020-10-12] MEDS ORDERED: ENOXAPARIN 30 MG/0.3 ML SQ ONE (08:39)
[2020-10-12] MEDS ORDERED: FAMOTIDINE 20 MG/2 ML VIAL IV ONE (08:39)
[2020-10-12] MEDS: ENOXAPARIN 30 MG/0.3 ML SQ SCH (09:00)
[2020-10-12] MEDS ORDERED: NA CHLORIDE 0.9% 250 ML IV ONE ×2 (09:16→12:27)
[2020-10-12] MEDS: METOPROLOL TAR 50 MG TAB PO SCH ×2 (09:43→20:53)
[2020-10-12] MEDS ORDERED: ENOXAPARIN 80 MG/0.8 ML SQ ONE ×2 (09:54→13:00)
[2020-10-12] MEDS ORDERED: ENOXAPARIN 100 MG/ML SYR SQ ONE (09:54)
[2020-10-12] MEDS ORDERED: LORazepam 2 MG/ML VIAL IV PRN (12:27)
[2020-10-12] MEDS ORDERED: NA CHLORIDE 0.9% 250 ML ONE (12:47)
--- NOTE | 2020-10-12 13:23 | RAD REPORT ---
EXAM DESCRIPTION: CT - [id number] - 10/12/2020 12:46 pm CLINICAL HISTORY: Upper extremity weakness; CVA vs Cspine injury, headache, neck pain COMPARISON: <Comparisons> TECHNIQUE: Axial 5 mm thick images of the head were obtained. Axial 2 mm thick images of the cervic al spine were obtained with sagittal and coronal reconstruction images generated and reviewed. All CT scans are performed using dose optimization technique as appropriate and may include automated exposure control or mA/KV adjustment according to patient size. FINDINGS: No intracranial hemorrhage, mass, edema or acute intracranial finding. No suspicion for ac clarence infarction. No cortical edema or sulcal effacement. Atrophy and chronic ischemic pattern matches the March 2019 study. Mastoid air cells and paranasal sinuses are clear. No globe or orbit abnormality seen. Prominent degenerative changes are present at the C1 dens articulation. Calcifications of the transve rse ligament present. Right lateral tilt is believed to be positioning artifact within the scanner. S evere degenerative disc disease with spurring and disc space narrowing seen C3-4, C4-5, C5-6 and C6-7 . An acute compression fracture or pathologic process not identified. Significant facet joint degener ative change present. Bony foraminal encroachment present on the left at C2-3. Severe right-side and moderate left-sided foraminal stenosis at C3-4 with central spinal stenosis to 9 mm. Severe bilateral bony foraminal stenosis at C4-5 with spinal stenosis of 8 mm. Moderately severe left-sided and sever e right-sided foraminal stenosis at C5-6 along with 9 millimeter spinal stenosis. Moderately severe b ilateral foraminal stenosis at C6-7 with 9 millimeter spinal stenosis. Central canal detail is inher ently limited. No paraspinal mass or hematoma. Dense carotid calcifications are present. Stent is in place in the [facility] internal carotid artery. Patency of the vasculature cannot be assessed. IMPRESSION: No hemorrhage, mass or acute intracranial finding. Atrophy and chronic ischemic change m atc the March 2019 study. Moderate atrophy and chronic ischemic changes are present. Ventricular size is in proportion to vol ume loss. Severe cervical spine degenerative change with multilevel spinal stenosis and moderate to severe fora brandy stenoses spanning C3-C7. No acute findings seen and no clear change from March 2019.
[2020-10-12] MEDS ORDERED: DIGOXIN 0.25 MG/ML AMP ONE (14:33)
--- NOTE | 2020-10-12 14:47 | P.PN ---
Subjective Date of Service: 10/11/20 Patient was extubated. Patient currently doing well with no new complaints. Will start working with physical therapy and hopefully we can get patient strength improved over the next few days and discharge home. Respiratory status is stable. Patient remains slightly tachycardic as well. Monitor volume status closely. Review of Systems 10-point ROS is otherwise unremarkable Physical Examination - Vital Signs Temperature: 98.3 F Blood Pressure: 151/87 Pulse: 127 Respirations: 20 Pulse Ox (%): 125 - Physical Exam General: Alert, In no apparent distress, Oriented x3, Other (Slightly lethargic) Respiratory: Diminished, Expiratory wheezes Cardiovascular: Regular rate/rhythm, Normal S1 S2, Systolic murmur Gastrointestinal: Normal bowel sounds, Soft and benign, Non-distended, No tenderness Musculoskeletal: No clubbing, No tenderness, Swelling Integumentary: No rashes Neurological: Sensation intact, Cranial nerves 3-12 intact, Abnormal strength - Studies Medications List Reviewed: Yes Assessment & Plan - Problems (Diagnosis) (1) Septic shock Current Visit: Yes Status: Acute (2) Pneumonia Current Visit: Yes Status: Acute (3) Acute kidney injury Current Visit: Yes Status: Acute (4) Respiratory failure Current Visit: Yes Status: Acute Qualifiers: Chronicity: acute on chronic (5) Chronic obstructive lung disease COPD Current Visit: No Status: Acute (6) History of CHF (congestive heart failure) Current Visit: No Status: Acute (7) Coronary arteriosclerosis Onset Date: 01/11/18 Current Visit: No Status: Chronic (8) Hyperlipidemia Onset Date: 01/11/18 Current Visit: No Status: Chronic Qualifiers: (9) Hypertension Onset Date: 01/11/18 Current Visit: No Status: Chronic Qualifiers: (10) Obstructive sleep apnea Onset Date: 01/11/18 Current Visit: No Status: Chronic - Plan Continue with plan of care as mentioned below 1. Continue with IV antibiotics 2. Awaiting sputum and blood culture 3. Repeat chest x-ray 4. Echocardiogram and renal Doppler pending 5. Appreciate pulmonary consultation; nephrology consultation pending 6. Continue with nebs and IV steroids; will start weaning off 7. O2 per protocol 8. Continue with gentle hydration with bicarb drip and weaned off Levophed 9. Repeat labs including CBC and renal function in a.m. Monitor potassium level closely 10. Patient is a do not attempt resuscitation 11. GI and DVT prophylaxis Discharge Plan: Home Plan to discharge in: Greater than 2 days - Advance Directives Does patient have a Living Will: Yes Does patient have a Durable POA for Healthcare: Yes - Code Status/Comfort Care Code Status: Do Not Attempt Resuscitat Critical Care: Yes Time Spent Managing PTS Care (In Minutes): 45
--- NOTE | 2020-10-12 14:55 | P.PN ---
Subjective Date of Service: 10/12/20 multiple family members at bedside. Patient doing well. Strength is improving. She was able to lift both her arms up today. Continue trying the strength in the lower extremities as well. Physical therapy consultation ordered. Continue patient out of bed into a chair. Transfer to the general medical floor in the morning as long as we have her atrial fibrillation controlled and renal function improves. Patient remains to have some weakness in the upper extremities so will do a CT of the head and neck. If this is okay then can resume physical therapy consultation Review of Systems 10-point ROS is otherwise unremarkable Physical Examination - Vital Signs Temperature: 98.3 F Blood Pressure: 151/87 Pulse: 127 Respirations: 20 Pulse Ox (%): 125 - Physical Exam General: Alert, In no apparent distress, Other (Slightly lethargic) Respiratory: Expiratory wheezes Cardiovascular: Regular rate/rhythm, Normal S1 S2, Systolic murmur Gastrointestinal: Normal bowel sounds, Soft and benign, Non-distended Musculoskeletal: No clubbing, Swelling Neurological: Sensation intact, Cranial nerves 3-12 intact, Abnormal gait, Abnormal strength - Studies Medications List Reviewed: Yes Assessment & Plan - Problems (Diagnosis) (1) Septic shock Current Visit: Yes Status: Acute (2) Pneumonia Current Visit: Yes Status: Acute (3) Acute kidney injury Current Visit: Yes Status: Acute (4) Respiratory failure Current Visit: Yes Status: Acute Qualifiers: Chronicity: acute on chronic (5) Chronic obstructive lung disease COPD Current Visit: No Status: Acute (6) History of CHF (congestive heart failure) Current Visit: No Status: Acute (7) Coronary arteriosclerosis Onset Date: 01/11/18 Current Visit: No Status: Chronic (8) Hyperlipidemia Onset Date: 01/11/18 Current Visit: No Status: Chronic Qualifiers: (9) Hypertension Onset Date: 01/11/18 Current Visit: No Status: Chronic Qualifiers: (10) Obstructive sleep apnea Onset Date: 01/11/18 Current Visit: No Status: Chronic - Plan Continue with plan of care as mentioned below 1. Continue with IV antibiotics; cultures remained negative at this time. May be able to discontinue over the next few days his symptoms are stable 2. Awaiting sputum and blood culture remained negative 3. Repeat chest x-ray 4. Echocardiogram reviewed 5. Appreciate pulmonary consultation; nephrology consultation aqppreciated; cardiology pending 6. Continue with LABA and IV steroids; will start weaning off 7. O2 per protocol 8. Continue with gentle hydration since UOP>6L/24HRS 9. Repeat labs 10. Patient is a do not attempt resuscitation 11. GI and DVT prophylaxis Discharge Plan: Home Plan to discharge in: Greater than 2 days - Advance Directives Does patient have a Living Will: Yes Does patient have a Durable POA for Healthcare: Yes - Code Status/Comfort Care Code Status: Do Not Attempt Resuscitat Critical Care: No Time Spent Managing PTS Care (In Minutes): 45
[2020-10-12] MEDS: NA CHLORIDE 0.9% 1,000 ML IV SCH (15:32)
[2020-10-12] MEDS ORDERED: NA CHLORIDE 0.9% 1,000 ML ONE (15:46)
--- NOTE | 2020-10-12 16:15 | EKG ---
Test Date: 2020-10-10 Test Time: 06:45:16 Electronic Engineering Draftsperson: MEASUREMENT RESULTS: Intervals: Rate: 134 WY: 144 QRSD: 82 QT: 288 QTc: 430 [place]: P: 72 WY: 144 QRS: 62 T: 127 INTERPRETIVE STATEMENTS: Sinus tachycardia Right atrial enlargement ST & T wave abnormality, consider lateral ischemia Abnormal ECG Compared to ECG 05/15/2020 05:31:40 Atrial abnormality now present ST (T wave) deviation now present Possible ischemia now present Sinus rhythm no longer present Myocardial infarct finding no longer present Electronically Signed On 10-12-20 16:10:05 PLASTICS TOOLING ENGINEER by Randall Urias
[2020-10-12] MEDS: SOTALOL HCL 80 MG TAB PO SCH (17:32)
[2020-10-12] MEDS ORDERED: SOTALOL HCL 80 MG TAB ONE (17:47)
--- NOTE | 2020-10-12 20:10 | CON ---
Date of Consultation: 10/11/2020 Reason For Consultation: Respiratory failure and atrial fibrillation. History Of Present Illness: Ms. Benson is a 80-year-old, who has a history of coronary artery diseas e, breast cancer, congestive heart failure, COPD, gastroesophageal reflux disease, depression, and hy pertension, came in with respiratory failure, requiring intubation, was extubated by the time I saw h er and she had just gone into atrial fibrillation, rate of about 160. The case was discussed with Dr Meghan Rowe at that time. No symptoms reported with atrial fibrillation and blood pressure was actually adequate. No chest pain reported. No fever. No chills. The patient had denied any PND, orthopnea, or pedal edema. Symptoms initially have been thought related to COPD exacerbation and possibly some CHF. Echocardiogram, which was done on 10/10/2020, showed an ejection fraction of 60%. She has mil d aortic stenosis, moderate mitral stenosis. Allergies: CODEINE. Review of Systems: Negative. Social History: Negative. Family History: Noncontributory. Medications: At home include losartan, metoprolol, inhalers, Lasix, and Crestor. Physical Examination: Vital Signs: Her heart rate was in atrial fibrillation at a rate of about 155-160. She was afebrile . Her blood pressure was adequate. General: She was in mild respiratory distress. HEENT: Negative. Neck: Supple with no bruit. Chest: Some expiratory wheezing. Cardiac: Atrial fibrillation with a mitral stenosis and aortic stenosis. No murmurs. No rubs. No gallops. Abdomen: Benign, Extremities: 1+ edema. Skin: Dry and intact. Neurologic: She was nonfocal. Extremities: Pulses were present distally bilaterally. Diagnostic Data: She was in atrial fibrillation by EKG. O2 saturation was 98% on nasal cannula. Cr eatinine was 3.26. White count is 16,000. Troponin is 0.06. BNP was 11,425. Impression And Plan: 1.Atrial fibrillation, new onset secondary to respiratory failure. I would give her 1 dose of digox in and increase her metoprolol to 50 b.i.d. I agree with IV metoprolol that was given. She needs to be on Lovenox. We will decide on anticoagulation down the road. She will eventually probably have to be on Eliquis because of her renal failure. 2.Coronary artery disease, stable. 3.History of breast cancer. 4.History of congestive heart failure. Echocardiogram showed mitral stenosis and aortic stenosis, m ild to moderate, no specific treatment at this point, ejection fraction 60%. 5.Her other problems include gastroesophageal reflux disease, depression, and hypertension, which ar e fairly well controlled. Her renal failure is rather severe. Losartan has been held. We should be careful with Lasix. Nephrology is following. I will continue to follow her. CINDY/EDUARDO Voice ID: [id number] Report ID: [id number]
[2020-10-12] MEDS: LEVALBUTEROL 0.63 MG/3 ML NEB NEB PRN (20:15)
[2020-10-12] MEDS: ARFORMOTEROL TARTRATE 15 MCG/2 ML VIAL.NEB IH SCH (20:15)
--- NOTE | 2020-10-12 20:25 | PN ---
Date of Progress Note: 10/12/2020 Reason For Consultation: Initially was atrial fibrillation. The patient received 1 dose of digoxin 0.5 mg x1 because of her renal failure. She received 5 mg x3 of IV Lopressor. She had her metoprolol increased to 50 b.i.d. and this morning she remained in atri al fibrillation with rate of 127. She is still saturating 98% on nasal cannula and still had an elev ated white count. Her BNP is elevated. Her echocardiogram showed aortic stenosis that is mild, mitr al stenosis that is moderate, ejection fraction of 60%. The patient is on Lovenox. She will eventua lly need to be on Eliquis. I am going to switch her from metoprolol to sotalol 80 mg 1 p.o. b.i.d. a nd if she stays in atrial fibrillation or her rate stays fast, we will consider cardioversion sometim e down the road. Her kidney function is being monitored by monitor by Nephrology. [facility] WHITE/EDUARDO Voice ID: [id number] Report ID: [id number]
[2020-10-12] MEDS: ROSUVASTATIN 10 MG TAB PO SCH (20:52)
[2020-10-12] MEDS: BUPROPRION HCL S.R. 150MG TAB PO SCH (21:00)
[2020-10-12] MEDS: PREGABALIN 75 MG CAP PO SCH (21:09)
[2020-10-12] MEDS ORDERED: BUPROPRION HCL S.R. 150MG TAB PO ONE (21:16)
[2020-10-12] MEDS ORDERED: PREGABALIN 75 MG CAP PO ONE (21:16)
[2020-10-12] MEDS ORDERED: ZOLPIDEM TARTRATE 5 MG TABLET PO ONE (21:28)
[2020-10-12] MEDS ORDERED: ZOLPIDEM TARTRATE 5 MG TABLET ONE (21:57)
--- NOTE | 2020-10-12 22:25 | PN ---
Date of Progress Note: 10/12/2020 Chief Complaint: Acute on chronic kidney injury, severe, primarily was borderline oliguric. History Of Present Illness: The patient was started on IV Lasix and urine output has improved. The patient was treated for hyperkalemia and respiratory acidosis. The patient developed respiratory pritesh lure and required intubation. The patient was treated with Levophed for severe hypotension and shock . Antibiotic therapy was started for possible pneumonia. Chest x-ray was done, which showed bilater al infiltrate and congestive heart failure pattern. COVID test was done and was negative. The patie nt was extubated yesterday. Urine output has improved in response to Lasix. The patient has was kathrin ated for hyperkalemia. Potassium level was 5.8. She was started on bicarbonate drip and potassium l evel improved when diuresed and was enhanced by diuretics. Review of Systems: Denies PND or orthopnea. Physical Examination: Lungs: Diminished breath sounds at bases. Heart: S1, S2. Abdomen: Soft, benign. Extremities: Minimal edema. Impression And Plan: 1.Acute on chronic kidney injury, currently acute kidney injury, nonoliguric. The patient will cont inue Lasix for cardiorenal syndrome. 2.Respiratory failure. The patient has pneumonia. She was on pressors for septic shock. Currently hemodynamically stable. Continue treatment for COPD exacerbation, oxygen therapy. Lasix dose will be adjusted according to fluid balance. 3.Renal function is plateauing. Avoid nephrotoxic medication. EB/MODL Voice ID: [id number] Report ID: [id number]
[2020-10-13] MEDS: IPRATROPIUM BROM 0.5MG/2.5ML NEB SCH ×4 (01:45→20:27)
[2020-10-13] MEDS ORDERED: IPRATROPIUM BROM 0.5MG/2.5ML ONE ×4 (01:45→20:43)
[2020-10-13 05:38] LABS: Absolute Lymphocytes (CBC) 0.2 K/uL (0.7-4.9); Basophils % 0.1 % (0-1.3); Hematocrit 34.7 % (36.0-45.0); MPV 9.8 fL (7.6-11.3); RBC Red Blood Cell Count 3.73 M/uL (3.86-4.86)
[2020-10-13 05:57] LABS: Magnesium 2.1 mg/dL (1.8-2.4); Phosphorus 5.2 mg/dL (2.5-4.9); Potassium 4.2 mmol/L (3.5-5.1)
[2020-10-13] MEDS ORDERED: SOTALOL HCL 80 MG TAB ONE ×2 (06:10→17:33)
[2020-10-13] MEDS ORDERED: LEVOTHYROXINE SOD 0.1 MG TAB ONE (06:10)
[2020-10-13] MEDS: SOTALOL HCL 80 MG TAB PO SCH ×2 (06:22→17:21)
[2020-10-13] MEDS: LEVOTHYROXINE SOD 0.1 MG TAB PO SCH (06:23)
[2020-10-13] MEDS: NA CHLORIDE 0.9% 1,000 ML IV SCH (06:43)
[2020-10-13 08:00] LABS: Blood Morphology Comment NOT SEEN (NOT SEEN); Platelet Estimate ADEQ
[2020-10-13] MEDS: METOPROLOL TAR 50 MG TAB PO SCH ×2 (08:04→21:57)
[2020-10-13] MEDS: FAMOTIDINE 20 MG/2 ML VIAL IV SCH (08:05)
[2020-10-13] MEDS: CLOPIDOGREL 75 MG TABLET PO SCH (08:09)
[2020-10-13] MEDS: PANTOPRAZOLE 40MG TABLET PO SCH (08:09)
[2020-10-13] MEDS: METHYLPREDNISOLONE 40 MG INJ IV SCH (08:09)
[2020-10-13] MEDS ORDERED: METOPROLOL TAR 50 MG TAB ONE (08:11)
[2020-10-13] MEDS ORDERED: CLOPIDOGREL 75 MG TABLET ONE (08:11)
[2020-10-13] MEDS ORDERED: METHYLPREDNISOLONE 40 MG INJ ONE (08:12)
[2020-10-13] MEDS ORDERED: FUROSEMIDE 40 MG/4 ML VIAL ONE ×2 (08:12→17:33)
[2020-10-13] MEDS ORDERED: PANTOPRAZOLE 40MG TABLET PO ONE (08:12)
--- NOTE | 2020-10-13 08:17 | RAD REPORT ---
EXAM DESCRIPTION: [facility] Single View10/13/2020 6:48 am CLINICAL HISTORY: Shortness of breath COMPARISON: October 11 FINDINGS: No significant change in the bilateral pulmonary opacities. Heart remains enlarged IMPRESSION: No significant change in the [id number] bilateral pulmonary opacities probably pne umonia
[2020-10-13] MEDS: CALCIUM CARBONATE CHEW 500MG TAB PO SCH ×4 (08:50→21:56)
[2020-10-13] MEDS: BUPROPRION HCL S.R. 150MG TAB PO SCH (09:00)
[2020-10-13] MEDS: ROFLUMILAST 500 MCG PO SCH (09:00)
[2020-10-13] MEDS ORDERED: CITALOPRAM 10 MG TABLET PO SCH (09:00)
[2020-10-13] MEDS ORDERED: LEVALBUTEROL 0.63 MG/3 ML NEB ONE ×2 (09:18→16:49)
[2020-10-13] MEDS: buPROPion HCL 100 MG TAB PO SCH ×2 (09:41→21:56)
[2020-10-13] MEDS: LOSARTAN POTASSIUM 50 MG TABLET PO SCH (09:42)
[2020-10-13] MEDS: FUROSEMIDE 40 MG/4 ML VIAL IV SCH ×2 (09:53→17:20)
[2020-10-13] MEDS: ARFORMOTEROL TARTRATE 15 MCG/2 ML VIAL.NEB IH SCH ×2 (10:35→20:27)
[2020-10-13] MEDS: ENOXAPARIN 80 MG/0.8 ML SQ SCH (13:32)
[2020-10-13] MEDS ORDERED: ENOXAPARIN 80 MG/0.8 ML SQ ONE (13:46)
[2020-10-13] MEDS ORDERED: ARFORMOTEROL TARTRATE 15 MCG/2 ML VIAL.NEB ONE (20:42)
--- NOTE | 2020-10-13 21:11 | PN ---
Date of Progress Note: 10/13/2020 Ms. Benson was seen because of atrial fibrillation, rapid rate, unresponsive to digoxin and metoprolo l. Yesterday, she was switched to sotalol 80 b.i.d. Today she remains in atrial fibrillation but he r heart rate is 87. She is asymptomatic from that standpoint. She does have significant renal dysfu nction that has improved. Her creatinine today is 2.61. I think once she is able to take her p.o. m edication normally and when she is ready to go home, she should be on Eliquis 2.5 mg b.i.d. because o f her renal situation. Her other issues are stable. She has improved overall. I would continue her present medical regimen. No further plans as far as atrial fibrillation for now. If her heart rate is controlled, we will sit tight on sotalol anticoagulation and we will make a decision further down the road as far as her heart rhythm is concerned. CINDY/EDUARDO Voice ID: [id number] Report ID: [id number]
[2020-10-13] MEDS: ROSUVASTATIN 10 MG TAB PO SCH (21:56)
[2020-10-13] MEDS: PREGABALIN 75 MG CAP PO SCH (21:57)
[2020-10-13] MEDS: predniSONE 20 MG TAB PO SCH (21:57)
[2020-10-14] MEDS: IPRATROPIUM BROM 0.5MG/2.5ML NEB SCH ×4 (01:38→19:50)
[2020-10-14] MEDS: LEVOTHYROXINE SOD 0.1 MG TAB PO SCH (05:46)
[2020-10-14] MEDS: SOTALOL HCL 80 MG TAB PO SCH ×2 (05:47→16:55)
[2020-10-14] MEDS: ARFORMOTEROL TARTRATE 15 MCG/2 ML VIAL.NEB IH SCH ×2 (08:16→19:50)
[2020-10-14] MEDS: METOPROLOL TAR 50 MG TAB PO SCH (09:00)
[2020-10-14] MEDS: ROFLUMILAST 500 MCG PO SCH (09:00)
--- NOTE | 2020-10-14 09:18 | P.PN ---
Subjective Date of Service: 10/13/20 Patient's son at bedside. Patient's strength is gradually improving. She seems to move her upper extremities on her own occasionally. The when I ask her to move her upper extremities she appears to be very weak. While we were talking she started pointing to her neck with her left upper extremity where she was hurting. Her son also stated that she just randomly started scratching her had with her arms earlier today 1 before that she was having a hard time moving them. CT of the head and neck was unremarkable. Review of Systems 10-point ROS is otherwise unremarkable Physical Examination - Vital Signs Temperature: 97.2 F Blood Pressure: 164/74 Pulse: 74 Respirations: 18 Pulse Ox (%): 97 - Physical Exam General: Alert, In no apparent distress, Oriented x3 Respiratory: Diminished Cardiovascular: Regular rate/rhythm, Normal S1 S2, No murmurs Gastrointestinal: Normal bowel sounds, Soft and benign, Non-distended, No tenderness Musculoskeletal: No clubbing, No tenderness, Swelling Neurological: Normal speech, Sensation intact, Cranial nerves 3-12 intact, Abnormal strength - Studies Medications List Reviewed: Yes Assessment & Plan - Problems (Diagnosis) (1) Septic shock Current Visit: Yes Status: Acute (2) Pneumonia Current Visit: Yes Status: Acute (3) Acute kidney injury Current Visit: Yes Status: Acute (4) Respiratory failure Current Visit: Yes Status: Acute Qualifiers: Chronicity: acute on chronic (5) Chronic obstructive lung disease COPD Current Visit: No Status: Acute (6) History of CHF (congestive heart failure) Current Visit: No Status: Acute (7) Coronary arteriosclerosis Onset Date: 01/11/18 Current Visit: No Status: Chronic (8) Hyperlipidemia Onset Date: 01/11/18 Current Visit: No Status: Chronic Qualifiers: (9) Hypertension Onset Date: 01/11/18 Current Visit: No Status: Chronic Qualifiers: (10) Obstructive sleep apnea Onset Date: 01/11/18 Current Visit: No Status: Chronic - Plan Continue with plan of care as mentioned below 1. Continue with IV antibiotics; cultures are negative. Switch to oral antibiotics for 5-7 days 2. Cultures remain negative 3. Repeat chest x-ray shows bilateral pulmonary opacities still present 4. Echocardiogram reviewed; moderate mitral stenosis 5. Appreciate pulmonary consultation; nephrology consultation aqppreciated; cardiology pending 6. Continue with LABA and IV steroids; change to oral steroids 7. O2 per protocol 8. Hep-Lock IV and advanced diet as tolerated 9. Repeat labs 10. Patient is a do not attempt resuscitation 11. GI and DVT prophylaxis Discharge Plan: Home Plan to discharge in: Greater than 2 days - Advance Directives Does patient have a Living Will: Yes Does patient have a Durable POA for Healthcare: Yes - Code Status/Comfort Care Code Status: Do Not Attempt Resuscitat Critical Care: No Time Spent Managing PTS Care (In Minutes): 35
[2020-10-14] MEDS: PANTOPRAZOLE 40MG TABLET PO SCH (10:14)
[2020-10-14] MEDS: buPROPion HCL 100 MG TAB PO SCH ×2 (10:14→20:35)
[2020-10-14] MEDS: LOSARTAN POTASSIUM 50 MG TABLET PO SCH (10:16)
[2020-10-14] MEDS: CLOPIDOGREL 75 MG TABLET PO SCH (10:16)
[2020-10-14] MEDS: FUROSEMIDE 40 MG/4 ML VIAL IV SCH ×2 (10:18→16:54)
[2020-10-14] MEDS: predniSONE 20 MG TAB PO SCH ×2 (10:18→20:36)
[2020-10-14] MEDS: CALCIUM CARBONATE CHEW 500MG TAB PO SCH ×4 (10:18→20:35)
[2020-10-14] MEDS: ENOXAPARIN 80 MG/0.8 ML SQ SCH (10:18)
[2020-10-14 17:54] LABS: Absolute Lymphocytes (CBC) 0.2 K/uL (0.7-4.9); Basophils % 0.1 % (0-1.3); Hematocrit 38.8 % (36.0-45.0); Lymphocytes % 1.2 % (15.3-44.8); MPV 10.2 fL (7.6-11.3); RBC Red Blood Cell Count 4.17 M/uL (3.86-4.86)
[2020-10-14 18:02] LABS: Potassium 4.3 mmol/L (3.5-5.1)
--- NOTE | 2020-10-14 20:30 | PN ---
Date of Progress Note: 10/13/2020 Chief Complaint: Acute on chronic kidney injury, respiratory failure, severe COPD, congestive heart failure, cardiorenal syndrome, hypotension. History Of Present Illness: Patient was admitted to ICU and intubated for severe respiratory failure . Patient has advanced COPD and she was found to have hyperkalemia and respiratory acidosis. She wa s screened for COVID infection. Chest x-ray showed bilateral infiltrate and congestive heart failure pattern. Patient was started on Lasix. Urine output has improved primarily. She has severe acute on chronic kidney injury with oliguria, although diuretic was successfully started and urine output i mproved. Patient was treated with bicarbonate drip for hyperkalemia and acidosis. Review of Systems: Patient is feeling better. She is extubated. Review of systems is unobtainable. She is somewhat le thargic or dull. She denies complaints. Physical Examination: Lungs: Diminished breath sounds at bases. Heart: S1 and S2. No pericardial friction rub. Abdomen: Soft, benign. Extremities: Slight edema in both ankles. Impression And Plan: 1.Acute on chronic kidney injury, cardiorenal syndrome. Continue Lasix for volume control and treat ment of acute kidney injury with cardiorenal syndrome. Continue low-sodium diet. Patient may need s peech therapy for evaluation. 2.Respiratory failure. Patient had pneumonia and septic shock was treated with pressors. Levophed has been weaned off. Patient currently is hemodynamically stable. Continue antibiotics for pneumoni a and adjust antibiotic dose to renal function. 3.Acute on chronic kidney injury. Patient has underlying chronic kidney disease stage 3 due to johnson gn nephrosclerosis. Avoid nephrotoxic medication. 4.Hypertension. Monitor blood pressure. Adjust medication accordingly. 5.Hyperkalemia. Potassium was up to 5.8, improved with IV fluids, bicarbonate drip, and Lasix treat ment. Continue treatment with Lasix. Patient was taken off bicarbonate drip. EB/MODL Voice ID: [id number] Report ID: [id number]
[2020-10-14] MEDS: ROSUVASTATIN 10 MG TAB PO SCH (20:35)
[2020-10-14] MEDS: PREGABALIN 75 MG CAP PO SCH (20:37)
[2020-10-14] MEDS: ZOLPIDEM TARTRATE 5 MG TABLET PO SCH (21:59)
--- NOTE | 2020-10-15 00:33 | PN ---
Date of Progress Note: 10/14/2020 Chief Complaint: Acute kidney injury, severe, nonoliguric. History Of Present Illness: Primarily, the patient has oliguria, although she was started on IV diur etics for cardiorenal syndrome. She was intubated in ICU for respiratory failure. She has advanced COPD and developed pneumonia and COPD exacerbation. Chest x-ray showed bilateral infiltrate and congestive heart failure pattern. Oliguria resolved. Th e patient is responding to diuretic therapy. Renal function is gradually improving. Review of Systems: Denies PND or orthopnea. Physical Examination: Lungs: Diminished breath sounds at bases. Heart: S1, S2. Abdomen: Soft, benign. Extremities: Minimal edema in both ankles. Impression And Plan: 1.Acute on chronic kidney injury and cardiorenal syndrome. Continue Lasix for volume control and tr eatment of acute kidney injury with cardiorenal syndrome. Continue low-sodium diet. The patient may need speech therapy for evaluation. 2.Respiratory failure. The patient has pneumonia. Septic shock was treated with pressors. Blood p ressure currently is stabilizing. Levophed has been weaned off. The patient remains hemodynamically stable. 3.Hypertension. Monitor blood pressure. Adjust medication accordingly. 4.Hyperkalemia. Potassium level has improved with sodium bicarbonate drip and Lasix therapy. Potassium was up to 5.8, currently within normal limits, and the patient is on bicarbonate drip. EB/MODL Voice ID: [id number] Report ID: [id number]
[2020-10-15] MEDS: IPRATROPIUM BROM 0.5MG/2.5ML NEB SCH ×4 (01:45→21:10)
[2020-10-15 04:41] LABS: Absolute Lymphocytes (CBC) 0.2 K/uL (0.7-4.9); Basophils % 0.1 % (0-1.3); Hematocrit 36.9 % (36.0-45.0); Lymphocytes % 1.9 % (15.3-44.8); MPV 10.1 fL (7.6-11.3); RBC Red Blood Cell Count 4.07 M/uL (3.86-4.86)
[2020-10-15 05:12] LABS: Magnesium 2.4 mg/dL (1.8-2.4); Potassium 4.3 mmol/L (3.5-5.1)
[2020-10-15] MEDS: SOTALOL HCL 80 MG TAB PO SCH ×2 (06:19→16:36)
[2020-10-15] MEDS: LEVOTHYROXINE SOD 0.1 MG TAB PO SCH (06:19)
--- NOTE | 2020-10-15 06:33 | P.PN ---
Subjective Date of Service: 10/14/20 patient continues to improve with no new complaints. Patient ambulated to the room door and back to her bed. Her upper extremity is back to baseline. She is able to feed herself. She is trying to get home. Continue monitoring nutrition and will get physical therapy evaluation. Hopefully patient continues to improve over the next 48 hours & we can work on discharge planning. Review of Systems 10-point ROS is otherwise unremarkable Physical Examination - Vital Signs Temperature: 97.5 F Blood Pressure: 174/92 Pulse: 87 Respirations: 20 Pulse Ox (%): 96 - Physical Exam General: Alert, In no apparent distress, Oriented x3 Respiratory: Clear to auscultation bilaterally, Normal air movement Cardiovascular: Regular rate/rhythm, Normal S1 S2, No murmurs Gastrointestinal: Normal bowel sounds, Soft and benign, Non-distended, No tenderness Musculoskeletal: No clubbing, No swelling, No tenderness Neurological: Normal strength at 5/5 x4 extr, Cranial nerves 3-12 intact - Studies Medications List Reviewed: Yes Assessment & Plan - Problems (Diagnosis) (1) Septic shock Current Visit: Yes Status: Acute (2) Pneumonia Current Visit: Yes Status: Acute (3) Acute kidney injury Current Visit: Yes Status: Acute (4) Respiratory failure Current Visit: Yes Status: Acute Qualifiers: Chronicity: acute on chronic (5) Chronic obstructive lung disease COPD Current Visit: No Status: Acute (6) History of CHF (congestive heart failure) Current Visit: No Status: Acute (7) Coronary arteriosclerosis Onset Date: 01/11/18 Current Visit: No Status: Chronic (8) Hyperlipidemia Onset Date: 01/11/18 Current Visit: No Status: Chronic Qualifiers: (9) Hypertension Onset Date: 01/11/18 Current Visit: No Status: Chronic Qualifiers: (10) Obstructive sleep apnea Onset Date: 01/11/18 Current Visit: No Status: Chronic - Plan Continue with plan of care as mentioned below 1. Switch to oral antibiotics for 5-7 days 2. Sputum cx positive; sensitive to levaquin 3. Repeat chest x-ray 4. Echocardiogram reviewed; moderate mitral stenosis 5. Appreciate pulmonary consultation; nephrology consultation aqppreciated; cardiology appreciated; switich to eliquis 6. Continue with LABA and oral steroids 7. O2 per protocol 8. Hep-Lock IV and advanced diet as tolerated 9. Repeat labs 10. Patient is a do not attempt resuscitation 11. GI and DVT prophylaxis Discharge Plan: Home Plan to discharge in: Greater than 2 days - Advance Directives Does patient have a Living Will: Yes Does patient have a Durable POA for Healthcare: Yes - Code Status/Comfort Care Code Status: Do Not Attempt Resuscitat Critical Care: No Time Spent Managing PTS Care (In Minutes): 35
[2020-10-15 06:34] VITALS: BMI 20.3
[2020-10-15] MEDS: ARFORMOTEROL TARTRATE 15 MCG/2 ML VIAL.NEB IH SCH ×2 (08:12→21:10)
[2020-10-15] MEDS: CALCIUM CARBONATE CHEW 500MG TAB PO SCH ×4 (08:57→21:46)
[2020-10-15] MEDS: buPROPion HCL 100 MG TAB PO SCH ×2 (08:57→21:46)
[2020-10-15] MEDS: CLOPIDOGREL 75 MG TABLET PO SCH (08:57)
[2020-10-15] MEDS: LOSARTAN POTASSIUM 50 MG TABLET PO SCH (08:57)
--- NOTE | 2020-10-15 08:57 | RAD REPORT ---
EXAM DESCRIPTION: RAD - Chest Single View - 10/15/2020 7:04 am CLINICAL HISTORY: pneumonia Chest pain. COMPARISON: Chest Single View dated 10/13/2020; Chest Single View dated 10/11/2020; Chest Single View dated 10/10/2020; Chest Single View dated 05/15/2020 FINDINGS: Portable technique limits examination quality. Since 10/13/2020, mild improvement in bilateral pulmonary opacities are noted. The heart is moderatel y enlarged in size. Aortic atherosclerosis. IMPRESSION: Mild improvement lung aeration is seen since comparative study.
[2020-10-15] MEDS: PANTOPRAZOLE 40MG TABLET PO SCH (08:58)
[2020-10-15] MEDS: ROFLUMILAST 500 MCG TABLET PO SCH (08:58)
[2020-10-15] MEDS: APIXABAN 2.5 MG TABLET PO SCH ×2 (08:58→21:47)
[2020-10-15] MEDS: predniSONE 20 MG TAB PO SCH ×2 (08:58→21:47)
[2020-10-15] MEDS: CITALOPRAM 10 MG TABLET PO SCH (08:59)
[2020-10-15] MEDS ORDERED: ROFLUMILAST 500 MCG PO SCH (09:00)
[2020-10-15] MEDS ORDERED: CITALOPRAM 40 MG TABLET PO SCH ×2 (09:00)
[2020-10-15] MEDS: AMPICILLIN/SULBACT 1.5 GM in NA CHLORIDE 0.9% 100 ML IVPB SCH ×2 (09:00→21:47)
[2020-10-15] MEDS ORDERED: AMPICILLIN/SULBACT 1.5GM VIAL IVPB SCH (09:00)
--- NOTE | 2020-10-15 09:03 | RAD REPORT ---
EXAM DESCRIPTION: RAD - Lumbar Spine 3 Views - 10/15/2020 8:02 am CLINICAL HISTORY: LBP Radiculopathy COMPARISON: Lumbar Spine 3 Views dated 12/26/2019; Lumbar Spine 3 Views dated 06/02/2018; LUMBAR SPINE 3 VIEWS dated 03/13/2010 FINDINGS: Diffuse osteopenia is seen. Disc thinning is present at L1-2, L2-3 and L3-4 with small end plate osteophytes. Mild degenerative anterolisthesis of L3 on 4 and L4 on 5 noted. Mild degenerative levoscoliosis evident. Aortic atherosclerosis is present. Left renal artery stent noted. IMPRESSION: Advanced degenerative spondylosis and mild levoscoliosis of the lumbar spine is present. No acute finding.
[2020-10-15] MEDS: ACETAMINOPHEN 500 MG TAB FT PRN (09:13)
--- NOTE | 2020-10-15 10:32 | EKG ---
Test Date: 2020-10-11 Test Time: 20:14:00 Custom Tailor: 33 MEASUREMENT RESULTS: Intervals: Rate: 142 [place]: 128 QRSD: 84 QT: 314 QTc: 483 [place]: P: [place]: 128 QRS: 54 T: 86 INTERPRETIVE STATEMENTS: Sinus tachycardia with premature supraventricular complexes Low voltage QRS Cannot rule out Anterior infarct, age undetermined Abnormal ECG Compared to ECG 10/10/2020 06:45:16 Atrial premature complex(es) now present Low QRS voltage now present Myocardial infarct finding now present Atrial abnormality no longer present ST (T wave) deviation no longer present Possible ischemia no longer present Electronically Signed On 10-15-20 10:28:11 CODING TECHNICIAN by Randall Urias
--- NOTE | 2020-10-15 10:49 | PN ---
Date of Progress Note: 10/14/2020 Mrs. Benson has been followed for atrial fibrillation, renal failure. Her creatinine has improved. She right now, is suffering from major depression. There is consideration for her to go t o a jail facility. We should put her on Eliquis 2.5 b.i.d. when she goes home. She is on sotalol for atrial fibrillation. She remains in and out of atrial fibrillation, but her rate is con trolled. I recommend no change in her medical therapy. We will sign off her case for now. I will s ee her in the office as an outpatient eventually. CINDY/EDUARDO Voice ID: [id number] Report ID: [id number]
--- NOTE | 2020-10-15 14:37 | PN ---
Date of Progress Note: 10/15/2020 The patient seems fully orientated. Still complains of some upper extremity weakness. The x-ray of her back shows significant arthritic changes. Discussion with daughter has made in regard to her fabiola al status, which has improved. Her neurological status which she says is somewhat different than sam or to this hospitalization. In regard to her memory and intermittent tremors and her generalized wea kness, discussion was had with the patient and daughter as far as the SNF; however, there are still s ome issues with arrangements. We will discuss further with Sanding Line Operator. HR/MODL Voice ID: [id number] Report ID: [id number]
--- NOTE | 2020-10-15 21:36 | PN ---
Date of Progress Note: 10/15/2020 Chief Complaint: Acute kidney injury, severe, nonoliguric. Subjective: Patient had oliguria, although after she was started on IV diuretics for cardiorenal syndrome. Urine output improved and potassium has improved. Patient primarily had hyperkalemia with potassium up to 5.8 and was started on bicarbonate drip for acidosis. The patient has advanced COPD. She developed pneumonia and respiratory failure. She was intubated during this admission for respiratory failure. She was screened for COVID-19 infection. Patient is feeling better. She is undergoing rehab. Review of Systems: Denies complaints. Physical Examination: LUNGS: no crackles EXTREMITIES: No cyanosis Impression And Plan: 1. Acute on chronic kidney injury, cardiorenal syndrome. Continue Lasix. Adjust Lasix for maintenance dose. 2. Respiratory failure. Patient has pneumonia. Patient has been weaned off Levophed. Patient remains hemodynamically stable. 3. Hypertension. Monitor blood pressure. Adjust medication accordingly. 4. Hyperkalemia. Patient received bicarbonate drip and hyperkalemia has resolved. Patient may require potassium replacement when on diuretic. Recent potassium level was within normal limits 4.3. BUN 76, creatinine 2.25. Admission creatinine level was 2.67, was up to 3.52 and since October 11, gradually improved from 3.5 to 2.25. ELIZABETH/EDUARDO Voice ID: [id number] Report ID: [id number] MTDD
[2020-10-15] MEDS: ZOLPIDEM TARTRATE 5 MG TABLET PO SCH (21:46)
[2020-10-15] MEDS: PREGABALIN 75 MG CAP PO SCH (21:46)
[2020-10-15] MEDS: ROSUVASTATIN 10 MG TAB PO SCH (21:47)
[2020-10-15] MEDS ORDERED: LOSARTAN POTASSIUM 50 MG TABLET PO ONE (22:35)
[2020-10-16] MEDS: IPRATROPIUM BROM 0.5MG/2.5ML NEB SCH ×4 (01:55→19:25)
[2020-10-16] MEDS: LEVOTHYROXINE SOD 0.1 MG TAB PO SCH (06:04)
[2020-10-16] MEDS: SOTALOL HCL 80 MG TAB PO SCH ×2 (06:04→17:18)
[2020-10-16] MEDS: ARFORMOTEROL TARTRATE 15 MCG/2 ML VIAL.NEB IH SCH ×2 (08:00→19:25)
[2020-10-16] MEDS: ACETAMINOPHEN 500 MG TAB FT PRN (09:32)
[2020-10-16] MEDS: buPROPion HCL 100 MG TAB PO SCH ×2 (09:33→20:36)
[2020-10-16] MEDS: predniSONE 20 MG TAB PO SCH ×2 (09:33→20:37)
[2020-10-16] MEDS: APIXABAN 2.5 MG TABLET PO SCH ×2 (09:34→20:37)
[2020-10-16] MEDS: ROFLUMILAST 500 MCG TABLET PO SCH (09:34)
[2020-10-16] MEDS: CLOPIDOGREL 75 MG TABLET PO SCH (09:34)
[2020-10-16] MEDS: CITALOPRAM 10 MG TABLET PO SCH (09:34)
[2020-10-16] MEDS: PANTOPRAZOLE 40MG TABLET PO SCH (09:35)
[2020-10-16] MEDS: LOSARTAN POTASSIUM 50 MG TABLET PO SCH (09:35)
[2020-10-16] MEDS: CALCIUM CARBONATE CHEW 500MG TAB PO SCH ×4 (09:35→20:36)
[2020-10-16] MEDS: AMPICILLIN/SULBACT 1.5 GM in NA CHLORIDE 0.9% 100 ML IVPB SCH ×2 (09:36→20:36)
[2020-10-16] MEDS ORDERED: FUROSEMIDE 40 MG/4 ML VIAL IV ONE (14:00)
--- NOTE | 2020-10-16 14:44 | PN ---
Date of Progress Note: 10/16/2020 Subjective: The patient was admitted with acute kidney injury secondary to cardiorenal. The patient had been diuresed very well, responding to Lasix. Still has significant shortness of breath. The patient was started on losartan 2 days ago. Still blood pressure elevated. The patient had good urine output. Physical Examination: Vital Signs: Blood pressure 180/79, pulse of 52, afebrile. Had urine output of 2100. Chest: Crackles bilateral. Extremities: +1 edema. Laboratory Data: WBC 13.1, H and H 12.1/36.9, platelet 137. Sodium 139, potassium 4.3, bicarb 36, BUN 76, creatinine 2.2, calcium 8.9, magnesium 2.4. BNP 11,226. Current Medications: The patient on include ampicillin and sulbactam, breathing treatment, Eliquis, Plavix, calcium carbonate, losartan 50 daily, sotalol 80, ipratropium, levothyroxine, prednisone. Assessment And Plan: 1. Acute kidney injury secondary to cardiorenal, still on the over volume side. I am going to go ahead and increase her Lasix given the worsening in the blood pressure, especially after starting the losartan and with the finding of the disproportion in the kidney size with normal ejection fraction and still the patient came with congestive heart failure picture. Renal artery stenosis needs to be R/u. For that reason, I am going to go ahead and send for renal perfusion scan. Unfortunately with her current condition, I cannot go to MRA given the advanced kidney disease and GFR below 40 to avoid any cadmium exposure and we cannot go with any IV contrast. 2. Renal artery stenosis supported with the finding of disproportion kidney size and pulmonary edema, worsening blood pressure after adding losartan. a. Hold losartan, send for renal scan with captopril, and we will follow up. 3. Hypertension, not controlled. As above, possible renal artery stenosis. Start the patient on amlodipine, add Lasix, and add calcium channel adam. Continue sotalol. 4. Atrial fibrillation. Follow up with Cardiology. Continue Eliquis. Continue sotalol. 5. Hyperkalemia, resolved. 6. Respiratory failure secondary to pneumonia/over volume. Off Levophed. Add diuresis. We will follow up. time spend exam the patient face to face , place order , discussed the case with other pressure steamer tender hospitalist and other business process consultant 45 min. MA/MODL Voice ID: [id number] Report ID: [id number] TOÑITO
[2020-10-16] MEDS: AMLODIPINE 10 MG TAB PO SCH (14:47)
--- NOTE | 2020-10-16 15:38 | PN ---
Date of Progress Note: 10/16/2020 The patient has basically problems with her blood pressure, which has been variable. Her creatinine has improved somewhat. She continues to have a tremor and some decreased orientation. In view of th manisha factors, Renal was consulted as far as making some changes to her blood pressure medication and t his was done this morning. The neurological problem will be addressed with an MRI and consultation w madi Bojorquez. Also, discussion with her family as far as the patient requested a change in statu s from DNR to full code and this was done as well. HR/MODL Voice ID: [id number] Report ID: [id number]
--- NOTE | 2020-10-16 19:38 | CON ---
Requesting Physician: Yunior Montgomery MD Reason For Consultation: Consultation called because of tremors. History Of Present Illness: I spoke with the patient and her son, who was at the bedside. Ms. Kain morrison is now admitted to the hospital about a week with respiratory distress and she was intubated actual ly for acute respiratory distress and has subsequently been extubated and now is on the floor. The p atjarret and her son notes that she had some difficulty with tremors prior to hospitalization, but she was able to do sewing, knitting, hand work, and writing without much difficulty. Since her intubatio n and being out of the ICU, she has noted intermittent tremors when she tries to do activities. The tremors go away with rest or inactivity, tremors involve the head. She does not have face or jaw or mouth tremors. She had a head CT and cervical spine CT scan. Head CT scan showed atrophy and chroni c ischemic change, which match what was seen in March 2019. There was no mass, no acute findings, not tr suspicious. Again, atrophy is noted. Her cervical spine MRI did however show severe cervical s hoda degeneration at multiple levels with spinal stenosis from moderate to severe, spanning C3-C7, b ut that has not changed from March of 2019. Past Medical History: Hypertension, hypothyroidism, oxygen dependence with chronic COPD, peripheral vascular disease, carotid artery disease, congestive heart failure, dyslipidemia, obstructive sleep a pnea, peripheral neuropathy, breast cancer, and throat cancer. Past Surgical History: Hysterectomy, hemorrhoidectomy, vocal cord radiation, lower extremity and car otid stents, eye surgery bilaterally, left mastectomy. Family History: Heart disease in father. Cancer in mother and sister. Brother with heart disease. Both sister and brother are , father and mother as well. Medications: Albuterol, Wellbutrin 100 mg twice daily, Celexa 40 mg daily, Apresoline 25 mg daily, l evothyroxine 100 mcg daily, Protonix 40 mg daily, Lyrica 75 mg at bedtime, Crestor 10 mg at bedtime, Aldactone 50 mg twice daily, Ambien 5 mg at bedtime, aspirin 81 mg daily, Cozaar 50 mg daily, Lopress or 12.5 mg twice daily, Deltasone 5 mg daily, Ventolin inhaler 2 puffs twice daily, Brovana 2 mL twic e daily, Plavix 75 mg daily, potassium 20 mEq daily. Social History: No alcohol, tobacco, or drug use. Review of Systems: The patient has had chronic shortness of breath, some mild myalgias and arthralgias in the upper and lower extremities at her joints. She has diffuse weakness in the upper and lower extremities. Does have difficulty with tremors in the upper and lower extremities as indicated. Physical Examination: Vital Signs: Blood pressure 193/81, pulse 58, respiratory rate 16, temperature 98.2, oxygen saturati on 93%. Weight 142 pounds, height 5 feet 10 inches, BMI 20.4. General: Ms. Benson is resting in bed. She is in no acute distress. She has oxygen by nasal cannul a and oxygen saturations are 97-98% on oxygen via nasal cannula. HEENT: She is normocephalic, atraumatic. Her sclerae are anicteric. Oropharynx is moist. Neck: Supple. Chest: Good air movement. Abdomen: Soft. Extremities: Some bruising, but no significant edema or cyanosis. Neurological: She is alert and oriented to person and situation. She follows all commands appropria tely. On cranial nerve examination, she has no obvious focal asymmetry in the face in terms of sensa tion, movement, or excursion of the face. In the extremities, no tremor appreciated at rest or with intention when the arms are fully extended. She has no asymmetry of strength in the upper extremitie s, but diffuse weakness of 4+ proximally and distally. Lower extremity, no tremors noted in the legs , but diffuse weakness in the proximal distal lower extremity around 4. Sensory exam has a stocking- glove loss to light touch and temperature. Reflexes were depressed and symmetric in the upper and lo wer extremities. Coordination slow and intact. In gait, she actually refused to be up and ambulate with the physical therapist for multiple days in a row. Laboratory Studies: Complete blood count and differential: White blood cell count is down to 13.1 f rom a high of 17.1 two days ago, neutrophils 91.2, hemoglobin and hematocrit 12.1 and 36.9, platelets 137. INR 1.25. Chemistry show creatinine 2.25, glucose 116. Sodium, potassium, chloride, all norm al. Beta natriuretic peptide elevated to 11,226, calcium 8.9, magnesium 2.4. Her HDL 72, LDL 22, to del cholesterol 102. AST 79, ALT 24, alkaline phosphatase 21, and lactic acid on the 2nd is 0.7. A lumbar spine x-ray shows advanced degenerative spondylosis without acute findings. Most recent chest x-ray showed mild improvement in lung aeration, this is one from 10/15/2020, compared to one from . Assessment: Ms. Benson is a 80-year-old patient possibly with tremors aggravated by albuterol inhale r and other medications that are stimulants. She actually does admit with the patient's son in the r oom that she drinks excessive amounts of coffee and that too may be contributing to her tremors. At the time of my evaluation, she had no evidence of either rest or intention tremor, perhaps the tremor is also aggravated by stress, which the patient apparently had a recent loss of family and that may be a contributing factor. At this point, no evidence of central nervous system infection, stroke, or seizures. Plan: 1.She may continue on her current course of medical management. 2.She will benefit from physical and occupational therapy as she is likely to become debilitated aft er being in bed for over a week and given her age of 80, she is again very susceptible to significant debility. 3.The patient may be evaluated in clinic once she has had rehabilitation to determine if a DaTscan t o rule out Parkinson's would be required at this point. Again, there is no obvious tremor at rest or with intention in the patient. LB/MODL Voice ID: [id number] Report ID: [id number]
[2020-10-16] MEDS: ROSUVASTATIN 10 MG TAB PO SCH (20:36)
[2020-10-16] MEDS: PREGABALIN 75 MG CAP PO SCH (20:36)
[2020-10-16] MEDS: HYDRALAZINE HCL 25 MG TABLET PO SCH (20:37)
[2020-10-16] MEDS: ZOLPIDEM TARTRATE 5 MG TABLET PO SCH (20:37)
[2020-10-16 21:55] LABS: Urine Protein/Creatinine Ratio 0.29 ratio (<0.15)
[2020-10-17] MEDS: LEVALBUTEROL 0.63 MG/3 ML NEB NEB PRN ×2 (01:30→09:00)
[2020-10-17] MEDS: IPRATROPIUM BROM 0.5MG/2.5ML NEB SCH ×4 (01:30→20:10)
[2020-10-17] MEDS: SOTALOL HCL 80 MG TAB PO SCH ×2 (06:03→18:00)
[2020-10-17] MEDS: LEVOTHYROXINE SOD 0.1 MG TAB PO SCH (06:04)
[2020-10-17] MEDS ORDERED: CAPTOPRIL 25 MG TABLET ONE (06:09)
[2020-10-17 06:19] LABS: Albumin 2.8 g/dL (3.4-5.0); Phosphorus 5.4 mg/dL (2.5-4.9); Potassium 4.7 mmol/L (3.5-5.1); Thyroid Stimulating Hormone 1.46 uIU/mL (0.360-3.740)
[2020-10-17] MEDS ORDERED: HEPARIN 500 UNIT/5 ML SYR IV ONE (06:25)
--- NOTE | 2020-10-17 06:58 | RAD REPORT ---
EXAM DESCRIPTION: MRI - Brain Wo Cont - 10/16/2020 9:08 pm CLINICAL HISTORY: tremors COMPARISON: MRI BRAIN W WO CONTRAST dated 12/20/2014; Head C Spine Mpr Wo Con dated 10/12/2020 TECHNIQUE: Sagittal T1-weighted images were obtained along with axial PD, heavily T2-weighted and T2 -FLAIR images. Axial DWI and ADC mapping sequences were also obtained along with coronal heavily T2-w eighted images. FINDINGS: Diffusion-weighted imaging shows multiple areas with abnormal hyperintense signal involvin g cortical tissue and adjacent subcortical white matter in each posterior occipital lobe in several s ites in each posterior parietal lobe near the central and precentral sulci. There is corresponding di minished signal on ADC mapping with corresponding hyperintense T2/IR signal. T1 imaging shows no hemo rrhagic component. Several foci of cortical diffusion signal abnormality seen in the right frontal lo be also with corresponding hypointense ADC mapping and hyperintense T2/IR signal. There is no edema o r shift of midline structures. No extra-axial fluid collections. Vo-matter/white matter junction is preserved. Signal voids are seen as a normal finding in the major intracranial vessels. No globe or orbital content acute finding. Underlying atrophy and chronic ischemic changes are presen t similar to comparison. Ventricles are in proportion to volume loss. Mastoid air cells and paranasal sinuses are clear. 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 The parieto-occipital infarctions are in a typical posterior circulation distribution with right fron del lobe infarctions in a typical anterior circulation. This suggests the source of the infarctions may be proximal to the carotid and vertebrobasilar arteries.
[2020-10-17] MEDS: HYDRALAZINE HCL 25 MG TABLET PO SCH ×3 (09:00→21:42)
[2020-10-17] MEDS: ROFLUMILAST 500 MCG TABLET PO SCH (09:00)
[2020-10-17] MEDS: NITROGLYCERIN 0.4 MG/HR (10 MG) PATCH TD SCH (09:00)
[2020-10-17] MEDS: CITALOPRAM 10 MG TABLET PO SCH (09:00)
[2020-10-17] MEDS: AMLODIPINE 10 MG TAB PO SCH (09:00)
[2020-10-17] MEDS: ARFORMOTEROL TARTRATE 15 MCG/2 ML VIAL.NEB IH SCH ×2 (09:00→20:10)
[2020-10-17] MEDS ORDERED: FUROSEMIDE 40 MG TABLET PO SCH (09:00)
--- NOTE | 2020-10-17 12:13 | RAD REPORT ---
EXAM DESCRIPTION: RAD - Chest Single View - 10/17/2020 12:06 pm CLINICAL HISTORY: COPD COMPARISON: Portable October 15, portable October 13 TECHNIQUE: AP portable chest image was obtained 10/17/2020 12:06 pm . FINDINGS: Patient has a baseline COPD pattern with flattened diaphragm and fibrotic lung changes. Le ft costophrenic angle blunting has not changed. Lung parenchymal opacification continues to improve. Little infiltrate remains. Heart size is normal and stable. No vascular engorgement. No pneumothorax or enlarging pleural effusion. No acute bony abnormality seen. No acute aortic findings suspected. IMPRESSION: Partial clearing of the lung parenchymal infiltrates seen on prior imaging. Little infil trate remains. Left costophrenic angle blunting could be chronic COPD change, small pleural effusion or a combinatio n.
[2020-10-17] MEDS: CLOPIDOGREL 75 MG TABLET PO SCH (12:51)
[2020-10-17] MEDS: APIXABAN 2.5 MG TABLET PO SCH ×2 (12:51→21:43)
[2020-10-17] MEDS: predniSONE 20 MG TAB PO SCH ×2 (12:51→21:43)
[2020-10-17] MEDS: AMPICILLIN/SULBACT 1.5 GM in NA CHLORIDE 0.9% 100 ML IVPB SCH ×2 (12:52→21:46)
[2020-10-17] MEDS: CALCIUM CARBONATE CHEW 500MG TAB PO SCH ×4 (12:53→21:42)
[2020-10-17] MEDS: PANTOPRAZOLE 40MG TABLET PO SCH (12:53)
[2020-10-17] MEDS: buPROPion HCL 100 MG TAB PO SCH ×2 (12:55→21:42)
--- NOTE | 2020-10-17 13:25 | RAD REPORT ---
EXAM DESCRIPTION: NM - Kidney Imag W/Vas Flow - 10/17/2020 12:12 pm CLINICAL HISTORY: W[place], renal artery stenosis, abnormal renal function COMPARISON: Renal Ultrasound-Complete dated 10/10/2020 TECHNIQUE: The patient was administered 15.2 millicuries technetium 99 M DTPA. A 50 milligram captop ril dose was administered. The patient's pre-procedure and intra procedure blood pressures were monit ored. FINDINGS: Flow images show marked asymmetry in the renal activity much more pronounced on the right. The 2018 CT study shows that the left kidney is much smaller than the right and had delayed function . No right-sided hydronephrosis. Time activity curve shows the right kidney rapidly reached peak activity 1 minute after radiopharmace utical injection. Activity decreased slightly over the next few minutes reaching a plateau approximat mamadou 6 minutes into the examination. Activity curve remained relatively flat over the remaining 30 min utes exam time. The left kidney reached peak activity approximately 1.2 minutes after radiopharmaceutical injection a nd showed a slowly progressive decrease in activity over the course of the examination. Peak activity was substantially different quantitatively between the 2 kidneys (31K count right kidney, 9K count l eft kidney). Split function was approximately 76% right kidney 24% left kidney. IMPRESSION: 1. Abnormal captopril study with the right kidney showing delayed clearing of activity a nd a flattened activity curve. 2. Rapid up slope of the time activity curve is not a classic presentation for renal artery stenosis though the flattened overall activity curve is suspicious. A follow-up non captopril may be helpful t o evaluate relative uptake of each kidney compared to the captopril study. 3. The much smaller poorly functioning left kidney is more difficult to evaluate. The patient shows a pattern less suspicious for renal artery stenosis.
--- NOTE | 2020-10-17 19:21 | PN ---
Date of Progress Note: 10/17/2020 The patient seems to be improved since yesterday. Her MRI confirmed multiple small embolizations to the brain, probably cardiogenic in origin. Discussed with Dr. Bojorquez. The possibility of her sadie g admitted to rehab was considered. This will be put in as an insurance request. Addition of aspiri n may be indicated for her embolization. There was some discussion about her leaving the hospital on Thursday due to a , however, this will be discussed further with the family tomorrow. HR/MODL Voice ID: [id number] Report ID: [id number]
[2020-10-17] MEDS: ROSUVASTATIN 10 MG TAB PO SCH (21:42)
[2020-10-17] MEDS: ZOLPIDEM TARTRATE 5 MG TABLET PO SCH (21:43)
[2020-10-17] MEDS: PREGABALIN 75 MG CAP PO SCH (21:43)
[2020-10-17] MEDS ORDERED: FUROSEMIDE 40 MG/4 ML VIAL IV ONE (23:30)
--- NOTE | 2020-10-18 00:11 | PN ---
Date of Progress Note: 10/17/2020 Subjective: The patient was admitted with acute kidney injury, over volume. Echocardiogram was with normal ejection fraction. The patient's kidney function has been improved significantly yesterday. Blood pressure being not controlled. We discontinued ARB and resumed her hydralazine. Her blood pressure started being better controlled. Objective: Vital Signs: Today, blood pressure of 137/58, pulse of 84, afebrile. The patient had good urine output, voiding. Chest: Crackles bilateral. Heart: S1, S2. Systolic murmur. Abdomen: Soft, nontender. Extremities: Trace edema. Neuro: The patient is on BiPAP, awake. No focality. Laboratory Data: WBC 13.1, H and H 12.1/36.9, platelets 137. Sodium 139, potassium 4.7, bicarb 37, BUN 71, creatinine 1.8, calcium 9.6, phosphorus 5.4. BNP 11,226. Albumin 2.8. PTH 35. TSH 1.4. Current Medications: The patient on include, 1. Unasyn. 2. Breathing treatment. 3. Eliquis. 4. Plavix. 5. Amlodipine 10. 6. Hydralazine 25 t.i.d. 7. Nitroglycerin patch. 8. Sotalol. 9. Lyrica. 10. Ambien. 11. Zofran. 12. Levothyroxine. 13. Prednisone. Assessment And Plan: 1. Acute kidney injury secondary to cardiorenal, poor perfusion, acute tubular necrosis. Still on the over volume side. I am going to continue the patient on diuresis. I will keep holding the ARB for the time being and we will monitor. 2. Hypertension, possible secondary to renal artery stenosis. Hold ARB. I am going to continue utilize blood pressure to establish better volume control. Continue diuresis. 3. Renal artery stenosis supported with disproportion in the kidney size and worsening blood pressure on the ARB with advanced history of vascular path for the patient. We will follow up renal scan today and we will follow up with Dr. Montgomery regarding the report from the Cardiology. Continue diuresis. 4. Respiratory failure, multifactorial, secondary to chronic obstructive pulmonary disease/over volume, continue diuresis. Time spent discussing with the patient, [id number], using the translation, discussing with the staff and placing an order, discussing with over subspecialty and hospitalist 45 minutes. JOSH Voice ID: [id number] Report ID: [id number] TOÑITO
[2020-10-18] MEDS: IPRATROPIUM BROM 0.5MG/2.5ML NEB SCH ×3 (02:40→14:15)
[2020-10-18] MEDS: LEVOTHYROXINE SOD 0.1 MG TAB PO SCH (05:02)
[2020-10-18] MEDS: SOTALOL HCL 80 MG TAB PO SCH (05:02)
[2020-10-18 05:30] LABS: Absolute Lymphocytes (CBC) 0.4 K/uL (0.7-4.9); Basophils % 0.1 % (0-1.3); Hematocrit 36.3 % (36.0-45.0); Lymphocytes % 3.2 % (15.3-44.8); MPV 9.6 fL (7.6-11.3); RBC Red Blood Cell Count 3.99 M/uL (3.86-4.86)
[2020-10-18 05:45] LABS: Albumin 2.7 g/dL (3.4-5.0); Magnesium 2.3 mg/dL (1.8-2.4); Phosphorus 5.3 mg/dL (2.5-4.9); Potassium 4.6 mmol/L (3.5-5.1)
[2020-10-18] MEDS ORDERED: FUROSEMIDE 40 MG/4 ML VIAL IV SCH (09:00)
[2020-10-18] MEDS: ROFLUMILAST 500 MCG TABLET PO SCH (09:00)
[2020-10-18] MEDS: ARFORMOTEROL TARTRATE 15 MCG/2 ML VIAL.NEB IH SCH (09:30)
[2020-10-18] MEDS: LEVALBUTEROL 0.63 MG/3 ML NEB NEB PRN ×2 (09:30→14:15)
[2020-10-18] MEDS: NITROGLYCERIN 0.4 MG/HR (10 MG) PATCH TD SCH (09:38)
[2020-10-18] MEDS: predniSONE 20 MG TAB PO SCH (09:39)
[2020-10-18] MEDS: buPROPion HCL 100 MG TAB PO SCH (09:40)
[2020-10-18] MEDS: PANTOPRAZOLE 40MG TABLET PO SCH (09:40)
[2020-10-18] MEDS: CLOPIDOGREL 75 MG TABLET PO SCH (09:40)
[2020-10-18] MEDS: AMLODIPINE 10 MG TAB PO SCH (09:40)
[2020-10-18] MEDS: CALCIUM CARBONATE CHEW 500MG TAB PO SCH ×2 (09:40→13:07)
[2020-10-18] MEDS: APIXABAN 2.5 MG TABLET PO SCH (09:41)
[2020-10-18] MEDS: CITALOPRAM 10 MG TABLET PO SCH (09:42)
[2020-10-18] MEDS: HYDRALAZINE HCL 25 MG TABLET PO SCH (09:44)
[2020-10-18] MEDS: AMPICILLIN/SULBACT 1.5 GM in NA CHLORIDE 0.9% 100 ML IVPB SCH (09:48)
[2020-10-18 10:43] LABS: Blood Morphology Comment NOT SEEN (NOT SEEN); Platelet Estimate ADEQ
[2020-10-18 11:48] VITALS: O2SAT 94
--- NOTE | 2020-10-18 13:18 | PN ---
Date of Progress Note: 10/18/2020 Subjective: The patient was admitted with pulmonary edema, cardiac arrhythmia, respiratory failure. The patient intubated, extubated. Echocardiogram did not reveal any congestive heart failure. The patient undergo workup for acute kidney injury, showed disproportion in the kidney size. Yesterday, we done renal scan and came positive. Physical Examination: Vital Signs: When I saw the patient, blood pressure of 185/86, pulse of 53, afebrile. The patient had good urine output. Chest: Faint rales, bilateral. Heart: S1, S2. Systolic murmur. Abdomen: Soft, nontender. Could not appreciate any renal bruit. Extremities: Trace edema. Neurologic: Alert, oriented x3. Nonfocal. Laboratory Data: WBC 11.6, H and H 11.9, 36.3. Sodium 139, potassium 4.6, bicarb 36, BUN 71, creatinine 1.8, GFR 26, calcium 9.4, phosphorus 5.3, albumin 2.7. Current Medications: Norvasc 10 mg, hydralazine, albuterol, Plavix, Eliquis, calcium carbonate, nitroglycerin, lovastatin, sotalol, Ambien, Lasix 40, Zofran, pantoprazole. Assessment And Plan: 1. Acute kidney injury secondary to cardiorenal/renal artery stenosis, currently normal volume. I am going to continue current medication. Keep avoiding any MARI inhibitor or ARB. 2. Hypertension secondary to renal artery stenosis. I am going to discontinue Norvasc. Start the patient on nifedipine. Increase hydralazine to 50 mg t.i.d. I had long discussion with the patient in the presence of daughter that the patient is going to need eventually angioplasty for her renal artery, but does not need to be done in this admission as the patient just recovered from acute kidney injury and she going to be exposed to contrast. It is better to be done as outpatient in a couple of months from now. The patient verbalized understanding. 3. Chronic obstructive pulmonary disease with exacerbation, as by Pulmonary. 4. Over volume. Secondary to renal artery stenosis. Continue current dose of Lasix. Time spent discussing with the patient, [id number], using the translation, discussing with the staff and placing an order, discussing with over subspecialty and hospitalist 45 minutes. JOSH Voice ID: [id number] Report ID: [id number] TOÑITO
[2020-10-18] MEDS ORDERED: HYDRALAZINE HCL 25 MG TABLET PO SCH (14:00)
[2020-10-18 16:59] VITALS: BP 141/60; TEMP 97.6
--- NOTE | 2020-10-18 23:33 | PN ---
Date of Progress Note: 10/18/2020 The patient seems somewhat better today. She has been able to walk a little bit further without incr easing dyspnea and generally and mentally sharper as well. Social situation as far as her dispositio n is concerned in the morning. Also comfortable sending her home prior to being notified with the insurance company, okay to rehab stay on fifth floor. In the meantime, she will be discharg ed on home health and family was informed as necessary and to accept her, she could be admitted from home. If however, she is tolerating her home situation, then I will see her in the office next week. Patient has multiorgan disease consisting of neurological, in which she has multiple small infarcts , probably secondary to cardiac origin requiring physical therapy and OT and therefore possibly quali fying for rehab. Also has chest problems, possibly secondary to her aspiration. However, this has c leared considerably over the past few days. She has a cardiovascular problem, which is longstanding that seems to be somewhat stabilized as far as her arrhythmias are concerned and her renal problem sh ows progression of atrophy of kidney. Discussed in detail with Nephrology for possibly use of renal stenosis procedure in a couple of months once she is stabilized. The creatinine is approaching basel ine. Multiple medication changes were made including adding Lasix p.o. on a regular basis. __ Lopressor was discontinued at the time with addition of sotalol and sotalol was 80 mg b.i.d. She will be continued on her blood thinners of Plavix. She has been taking Plavix and aspirin at home. In the hospital, she was changed to Eliquis and Plavix. She is to continue her breathing treatments. Use of her BiPAP was also discussed and she is to check with Pulmonology as far as the settings are concerned and to use inhalers as well, which she states she has been doing at home. Apresoline was increased to 50 mg t.i.d. and spironolactone was discontinued. She is to follow up with Nephrology and Cardiology in a couple of weeks and Pulmonolog y as necessary and me in 1 week. HR/MODL Voice ID: [id number] Report ID: [id number]
[2020-10-19] MEDS ORDERED: NIFEDIPINE XL 90 MG TABLET PO SCH (09:00)
--- NOTE | 2020-12-03 01:56 | DS ---
Date of Discharge: 10/18/2020 Hospital Course: The patient was admitted to the hospital on 10/10. The patient presented to the em ergency room with significant progressive dyspnea. The patient has been diagnosed with terminal COPD and is on numerous medications, BiPAP, and oxygen at home. However, this seemed to be more than u al. She presented to the emergency room and she was intubated, placed in ICU. During this period of time, she was also placed on a low-dose Levophed drip and a central line placed on IV antibiotics an d IV steroids, was seen by no bake molder. She also had a significant change in her renal function, s een by Nephrology, who felt that she had acute on chronic kidney injury and was treated appropriately . After a few days of intubation, she was gradually weaned, actually came back to her baseline, and was admitted to the floor care. During this time, significant amount of time was spent with various family members in regard to her disposition and variability in her DNR status as well. She was maint ained on her usual medications including her BiPAP during her stay on the floor care. She did show s ome days where she was significantly better than other days both mentally and physically. There were some adjustments made to her blood pressure medication as well as her blood thinners as she also had evidence of multiple brain embolization. The latter was changed to Eliquis and Plavix. Apresoline was also utilized in various doses. Over the time she was on the floor care, she stabilized enough t hat it was felt the best place to treat her was her home, although consideration of other areas inclu ding a SNF were considered and rehab, however, some of this was an insurance issue and then she seeme d to be stabilized enough to go home on her usual inhalation therapy and BiPAP, and to continue to be monitored by home health as well. Adjustments to her cardiac, blood thinner, and hypertensive medic ation was continued at home, and she was discharged in rather poor condition however basically is ruth k at baseline for her on 10/18, to follow up with pulmonology and myself as necessary basis. Final Diagnoses: Acute respiratory failure, intubation; chronic obstructive pulmonary disease, sever e; multiple brain embolization; acute on chronic kidney injury; cardiorenal syndrome; hypertension, poor control; peripheral vascular disease; coronary artery disease. HR/MODL Voice ID: [id number] Report ID: [id number]
== END 2020-10-18 17:42 | disposition home health service (06) | DRG 871 ==
LOC: ER 06:26 → ERHOLD 07:43 → 2ND 10-13 20:33
PROVIDERS: ADMIT Family Medicine; ATTEND Family Medicine
PROC: 06HY33Z Insertion of Infusion Device into Lower Vein, Percutaneous Approach (ICD-10-PCS; principal; 2020-10-10)
PROC: 5A1945Z Respiratory Ventilation, 24-96 Consecutive Hours (ICD-10-PCS; 2020-10-10)
PROC: 0BH17EZ Insertion of Endotracheal Airway into Trachea, Via Natural or Artificial Opening (ICD-10-PCS; 2020-10-10)
DX: A41.9 Sepsis, unspecified organism (principal); G92 Toxic encephalopathy; I50.33 Acute on chronic diastolic (congestive) heart failure; J96.21 Acute and chronic respiratory failure with hypoxia; J96.22 Acute and chronic respiratory failure with hypercapnia; R65.21 Severe sepsis with septic shock; J18.9 Pneumonia, unspecified organism; N17.9 Acute kidney failure, unspecified; N18.4 Chronic kidney disease, stage 4 (severe); I13.0 Hypertensive heart and chronic kidney disease with heart failure and stage 1 through stage 4 chronic kidney disease, or unspecified chronic kidney disease; E87.2 Acidosis; J44.0 Chronic obstructive pulmonary disease with (acute) lower respiratory infection; J44.1 Chronic obstructive pulmonary disease with (acute) exacerbation; K21.9 Gastro-esophageal reflux disease without esophagitis; E88.09 Other disorders of plasma-protein metabolism, not elsewhere classified; E78.5 Hyperlipidemia, unspecified; I48.91 Unspecified atrial fibrillation; D69.6 Thrombocytopenia, unspecified; I70.1 Atherosclerosis of renal artery; F32.9 Major depressive disorder, single episode, unspecified; E87.5 Hyperkalemia; I25.10 Atherosclerotic heart disease of native coronary artery without angina pectoris; G47.33 Obstructive sleep apnea (adult) (pediatric); F17.200 Nicotine dependence, unspecified, uncomplicated; E03.9 Hypothyroidism, unspecified; I05.0 Rheumatic mitral stenosis; I35.0 Nonrheumatic aortic (valve) stenosis; Z66 Do not resuscitate; Z88.5 Allergy status to narcotic agent; Z88.8 Allergy status to other drugs, medicaments and biological substances; Z79.82 Long term (current) use of aspirin; Z79.02 Long term (current) use of antithrombotics/antiplatelets; Z79.52 Long term (current) use of systemic steroids; Z79.899 Other long term (current) drug therapy; Z79.890 Hormone replacement therapy; Z85.3 Personal history of malignant neoplasm of breast; Z92.21 Personal history of antineoplastic chemotherapy; Z85.89 Personal history of malignant neoplasm of other organs and systems; Z99.81 Dependence on supplemental oxygen; Z90.710 Acquired absence of both cervix and uterus; Z90.12 Acquired absence of left breast and nipple; Z20.822 Contact with and (suspected) exposure to COVID-19
CPT/HCPCS: 31500; 36415; 51702; 70450; 70551; 71045; 72100; 72125; 76770; 78710; 80048; 80053; 80061; 80069; 80076; 81003; 81015; 82570; 82805; 82947; 83605; 83735; 83880; 83970; 84100; 84145; 84156; 84443; 84484; 85025; 85379; 85610; 85730; 87040; 87070; 87077; 87186; 87205; 87804; 93005; 93306; 94002; 94003; 94640; 94660; 94760; 97110; 97112; 97116; 97161; 97165; 97530; 99291; A9539; J0295; J1160; J1642; J1650; J1940; J2250; J2405; J2543; J2704; J2920; J2930; J3010; J3370; J7030; J7040; J7050; J7512; J7605; U0003

== ENCOUNTER 2020-10-19 10:23 | Emergency (ER) | payer OTHER ==
--- OUTSIDE RECORDS SUMMARY | 2020-10-19 10:28 | XMS REPORT | Clinical Summary ---
:1940 Author Organization [facility] Address [address] [place] [address] Care Team Providers Name Role Phone MD [...] Follow up in 6 months. CAD in [place] artery 08/19/2016 Bilateral carotid artery disease 08/19/2016 [...] Teresa Cabrera RN PAD (peripheral artery disease) ([facility]) (Primary Dx); Bilateral carot id artery stenosis 01/02/2020 Travel 01/02/2020 Telephone Cardiovascular Jacqueline Guthrie MD 12/13/2019 Office Visit Cardiology Jewel Kebede MD PAD (per ipheral artery disease) ([facility]) (Primary Dx); Bilateral carot id artery occlusion; Essential hyper tension 12/12/2019 Refill Cardiology Jewel Kebede MD Med Refi ll 12/08/2019 Refill Cardiology Jewel Kebede MD Med Refi ll after 10/19/2019 Surgical History Surgery Date Site/Laterality Comments CATARACT EXTRACTION Bilateral EXTRACAPSULAR W/ INTRAOCULAR LENS IMPLANTATION BYPASS GRAFT 10/12/1999 - artery bilateral 10/11/2000 leg--Dr. Maycol Russo CARDIAC CATHETERIZATION 01/19/2019 Radial Procedur e: Cv aortogram abdominal aorta; Surgeon: Jewel Kebede MD; Location: [facility] Coverage Specialist Invasive Location; Service: Cardiology; Laterality: Radial; abdominal aorta with run offs poss stent radial access MASTECTOMY 10/12/2013 - Left 10/11/2014 HYSTERECTOMY 10/12/1972 - 10/11/1973 ENDARTERECTOMY, FEMORAL 02/03/2019 Groin/Bilateral Procedur e: COMMON FEMORAL ENDARTER ECTOMY, BILATERAL; Surg rober: Olivia Guthrie MD; Location: [facility]; Service: Va scular; Laterality: Seven ateral; Medical devices from this surgery are in the Implants section . Medical History Medical History Date Comments Carotid artery occlusion patient/spouse reports a "stent in the carotid" Cancer ([facility]) breast,skin throat, ear cancer Hyperlipidemia Anesthesia slow to wake up with mastectomy--2012 / Dental jehovah's witness present dental implan ts CHF (congestive heart failure) ([facility]) [address] Jewel Kebede COPD (chronic obstructive pulmonary BIPA P--managed by Dr. Karthik Charles disease) ([facility]) Acid reflux controlled with med [...] with No / Unsure 09/25/2020 7:43 AM ARTIST'S REPRESENTATIVE someone who was confirmed or suspected to have Coronavirus / COVID-19? Last Filed Vital Signs Vital Sign Reading Time Taken Comments Blood Pressure 182/68 09/25/2020 9:56 AM ARTIST'S REPRESENTATIVE Pulse 79 09/25/2020 9:56 AM ARTIST'S REPRESENTATIVE Temperature 36.4 C (97.5 F) 09/25/2020 9:56 AM ARTIST'S REPRESENTATIVE Respiratory Rate 18 09/25/2020 9:56 AM ARTIST'S REPRESENTATIVE Oxygen Saturation 92% 09/25/2020 9:56 AM ARTIST'S REPRESENTATIVE on 2 l iters Inhaled Oxygen Concentration - - Weight 69.4 kg (153 lb) 09/25/2020 9:56 AM ARTIST'S REPRESENTATIVE Height 172.7 cm (5' 8") 09/25/2020 9:56 AM ARTIST'S REPRESENTATIVE Body Mass Index 23.26 09/25/2020 9:56 AM ARTIST'S REPRESENTATIVE Plan of Treatment Date Type Specialty Care Team Description 10/08/2021 Appointment Procedural Cardiology 10/08/2021 Appointment Procedural Cardiology 10/08/2021 Appointment Procedural Cardiology 10/08/2021 Office Visit Cardiovascular Jacqueline Guthrie MD [address] [place], [place] [address] [phone] Health Maintenance Due Date Last Done Comments COVID-19 VACCINE (#1) 1957 SHINGLES VACCINES (#1) 1991 65+ PNEUMOCOCCAL VACCINE (1 of 1 - PPSV23) 2006 INFLUENZA VACCINE 05/12/2020 Implants Implanted Type Area Content Editor Device Shelf Model / Identifier Expiration Serial / Date Lot Graft Vasclr Propaten Thn-Wl Strtch 40cm 8mm - [id number] - [id number] Vascular Right: W L GORE 07/25/2022 [id number] / Implanted: Qty: 1 on 02/03/2019 by Jacqueline Elaine MD at [facility] Graft N/A [id number] / [id number] Patch Vasclr Perph 2x9cm Vascu-Guard - [id number] Vascular N/A: N/A CASTAÑEDA 03/02/2023 [id number] / Implanted: 02/03/2019 at [facility] (Quantity not on file) Graft BIOSCIENCE / [id number] Procedures Procedure Name Priority Date/Time Associated Comments Diagnosis US CAROTID DUPLEX Routine 09/25/2020 10:13 AM Bilateral caroti d Results for this BILATERAL ARTIST'S REPRESENTATIVE artery stenosis procedure ar e in the results section. US DUPLEX ARTERIAL Routine 09/25/2020 10:13 AM PAD (peripheral Results for this LOWER EXTREMITY ARTIST'S REPRESENTATIVE artery disease) procedure are in BILATERAL (HCC) the results section. US ANKLE BRACHIAL Routine 09/25/2020 8:32 AM PAD (peripheral Results for this INDEX ARTIST'S REPRESENTATIVE artery disease) procedure ar e in ([facility]) the results section. CT ANGIOGRAM [...] CDT artery disease) procedure are in BILATERAL ([facility]) the results section. US CAROTID DUPLEX Routine 03/14/2020 3:09 PM PAD (peripheral Results for this BILATERAL CDT artery disease) procedure ar e in ([facility]) the results Bilateral carotid section. artery stenosis after 10/19/2019 Results Us carotid duplex (09/25/2020 10:13 AM ARTIST'S REPRESENTATIVE)Only the most recent of2 results within the time period is included. Specimen Narrative Performed At [facility] Carreon tid Duplex Report [address] [facility], [place] [address] For quality control operator purposes, the categorization of the degree of the stenosis of this exam is based on criteria described i n the IAC carotid stenosis grading white paper( www.intersocietal.org/Va scular) and in Jolanta Monreal, Sherron Velazquez, et al. Caroti d artery stenosis: arellano-scale and Doppler US diagnosis- -Society of Radiologists in Ultrasound Consensus Conference. Radio logy. 2002 Nov; 229(2):340-6. Pat.Name: JAE BENSON Pat.ID: [id number]Date: 09/25/2020 Refer.MD: JACQUELINE GUTHRIE MD Exam Time: 8:10:00 AM Study Type:C arotid Age: 4 1940,80Y Sex: FEMALE Sonogrphr: Kiara KristenLOLA zamora CPT - 4: 9388 0 Echo Event ID:[id number] Order ID: [id number] Reason for Study:Known carotid artery st enosis; [...] FINDINGS 1. <70% stenosis right bulb and security intern al carotid artery. 2. Right ECA [...] Radiology Results In - 2019 10:37 AM [facility] Carotid Duplex R eport [address] [place] [address] For quality control operator purposes, the aneesh gorization of the degree of the stenosis of this exam is based on criteria described in the IAC carotid stenosis grading white paper( www.intersocietal.org/Vascular) and in Carri Monreal., Sherron Velazquez, et al. Clif burden artery stenosis: arellano-scale and Doppler US diagnosis--Society of Radiologists in Ultrasound Consensus Conference. Radiology. 2003 Nov; 229(2):340-6. Pat.Name: JAE BENSON.I D: [id number] .Date: 09/25/2020 Refer .MD: JACQUELINE GUTHRIE MD Exam Time: 8:10:00 AM Study Type:Carotid Age: 4 1940,80Y Sex: FEMALE Sonogrphr: Kiara Nice RVT CPT - 4: 12254 Echo Event ID:[id number] Order ID: [id number] Reason for Study:Known carotid artery st enosis; [...] City/State/ZIP Code Phon e Number [facility] [address] [place] [address] Us duplex arterial lower extremity (09/25/2020 10:13 AM ARTIST'S REPRESENTATIVE)Only the most recent of2 resultswithin the time period is included. Specimen Narrative Performed At [facility] Lower Extremity Arterial Duplex Report [address] [facility] [address], [place] [address] Pat.Name: JAE BENSON.ID: [id number] .Date: 09/25/2020 Refer.MD: JACQUELINE GUTHRIE MD Exam Time: 8:47:00 AM Study Type:L E Arterial Age: 4 1940,80Y Sex: FEMALE Sonogrphr: Kiara Nice RVT CPT - 4: 9392 5 Echo Event ID:[id number] Order ID: [id number] Reason for Study:Follow up s/p bilateras l APPLICATION SUPPORT ADMINISTRATOR 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 The proximal and distal segments of the graft are tortuous. Turbulent flow is noted th roughout. PSV cm/s Inflow artery(Rt APPLICATION SUPPORT ADMINISTRATOR) 212 Proximal anastomosis 343 Proximal graft 184(tortuous) Mid graft 104 Distal graft 123(tortuous) Distal anastomosis 72 Outflow artery (Rt APPLICATION SUPPORT ADMINISTRATOR) 42 (turbulent) DUPLEX SCAN OBSERVATIONS: RIGHT: Satisfactory [...] artery (ratio 1.3). FINDINGS: MEASUREMENTS: DOPPLER Left CHEMICAL PROCESS OPERATOR Prox CHEMICAL PROCESS OPERATOR Prox PSV 70 cm/s Right CHEMICAL PROCESS OPERATOR Prox CHEMICAL PROCESS OPERATOR Prox PSV 62 cm/s Left CHEMICAL PROCESS OPERATOR Distal CHEMICAL PROCESS OPERATOR Distal PSV 58 cm/s Right CHEMICAL PROCESS OPERATOR Distal CHEMICAL PROCESS OPERATOR Distal PSV 69 cm/s Left CHEMICAL PROCESS OPERATOR Mid CHEMICAL PROCESS OPERATOR Mid PSV 81 cm/s Right CHEMICAL PROCESS OPERATOR Mid CHEMICAL PROCESS OPERATOR Mid PSV 70 cm/s Left Peroneal Dist Peroneal Dist P 32 cm/s Right Peroneal Dist Peroneal Dist P 43 cm/s Left SFA Mid SFA Mid PSV 110 cm/s Right SFA Mid SFA Mid PSV 115 cm/s Left ED Prox ED Prox PSV 50 cm/s Right ED Prox ED Prox PSV 63 cm/s Left APPLICATION SUPPORT ADMINISTRATOR Prox APPLICATION SUPPORT ADMINISTRATOR Prox PSV 212 cm/s Left ED Mid [...] Mid Pop Mid PSV 53 cm/s Left APPLICATION SUPPORT ADMINISTRATOR Dist APPLICATION SUPPORT ADMINISTRATOR Dist PSV 172 cm/s Left Peroneal Mid [...] Left Profunda Profunda PSV 227 cm/s Right APPLICATION SUPPORT ADMINISTRATOR Dist 1 APPLICATION SUPPORT ADMINISTRATOR Dist 1 PSV 178 cm/s Right Profunda Profunda PSV 81 cm/s Right SFA Prox SFA Prox PSV 132 cm/s Signed 09/25/2020 12:24 PM Maycol Swartz MD, FACS, RPVI Procedure Note Interface, Radiology Results In - 2019 12:25 PM ARTIST'S REPRESENTATIVE [facility] Lower Extremity Arterial Duplex Report [address] [facility] [address], [place] [address] Pat.Name: JAE BENSON Pat.I D: [id number] St.Date: 09/25/2020 Refer .MD: JACQUELINE GUTHRIE MD Exam Time: 8:47:00 AM Study Type:LE Arterial Age: 4 1940,80Y Sex: FEMALE Sonogrphr: Kiara Nice RVT CPT - 4: 35726 Echo Event ID:[id number] Order ID: [id number] Reason for Study:Follow up s/p bilateras l APPLICATION SUPPORT ADMINISTRATOR 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 The proximal and distal segments of the graft are tortuous. Turbulent flow is noted th roughout. PSV cm/s Inflow artery(Rt APPLICATION SUPPORT ADMINISTRATOR) 2 12 Proximal anastomosis 3 43 Proximal graft 184(tortuous) Mid graft 104 Distal graft 123(tortuous) Distal anastomosis 72 Outflow artery (Rt APPLICATION SUPPORT ADMINISTRATOR) 42 (turbulent) DUPLEX SCAN OBSERVATIONS: RIGHT: Satisfactory [...] artery (ratio 1.3). FINDINGS: MEASUREMENTS: DOPPLER Left CHEMICAL PROCESS OPERATOR Prox CHEMICAL PROCESS OPERATOR Prox PSV 70 cm/s Right CHEMICAL PROCESS OPERATOR Prox CHEMICAL PROCESS OPERATOR Prox PSV 62 cm/s Left CHEMICAL PROCESS OPERATOR Distal CHEMICAL PROCESS OPERATOR Distal PSV 58 cm/s Right CHEMICAL PROCESS OPERATOR Distal CHEMICAL PROCESS OPERATOR Distal PSV 69 cm/s Left CHEMICAL PROCESS OPERATOR Mid CHEMICAL PROCESS OPERATOR Mid PSV 81 cm/s Right CHEMICAL PROCESS OPERATOR Mid CHEMICAL PROCESS OPERATOR Mid PSV 70 cm/s Left Peroneal Dist Peroneal Dist P 32 cm/s Right Peroneal Dist Peroneal Dist P 43 cm/s Left SFA Mid SFA Mid PSV 110 cm/s Right SFA Mid SFA Mid PSV 115 cm/s Left ED Prox ED Prox PSV 50 cm/s Right ED Prox ED Prox PSV 63 cm/s Left APPLICATION SUPPORT ADMINISTRATOR Prox APPLICATION SUPPORT ADMINISTRATOR Prox PSV 212 cm/s Left ED Mid [...] Mid Pop Mid PSV 53 cm/s Left APPLICATION SUPPORT ADMINISTRATOR Dist APPLICATION SUPPORT ADMINISTRATOR Dist PSV 172 cm/s Left Peroneal Mid [...] Left Profunda Profunda PSV 227 cm/s Right APPLICATION SUPPORT ADMINISTRATOR Dist 1 APPLICATION SUPPORT ADMINISTRATOR Dist 1 PSV 178 cm/s Right Profunda Profunda PSV 81 cm/s Right SFA Prox SFA Prox PSV 132 cm/s Signed 09/25/2020 12:24 PM Maycol Swartz MD, FACS, RPVI Performing Organization Address City/State/ZIP Code [facility] [address] [place] [phone] Us ankle brachial index (09/25/2020 8:32 AM ARTIST'S REPRESENTATIVE) Specimen Narrative Performed At [facility] Lower Extremity Art erial Physiologic Report [address] [place] [address] Pat.Name: JAE BENSON.ID: [id number] .Date: 09/25/2020 Refer.MD: JACQUELINE GUTHRIE MD Exam Time: 8:19:00 AM Study Type:P hysiologic Leg Age: 4 1940,80Y Sex: FEMALE Sonogrphr: Mamie Traore RVT CPT - 4: 9 3922 Echo Event ID:[id number] Order ID: [id number] Reason for Study:Surveillance status pos t fem-fem [...] Radiology Results In - 2019 10:28 AM ARTIST'S REPRESENTATIVE [facility] Lower Extremity Arterial P hysiologic Report [address] [place] [id number] Pat.Name: JAE BENSON Pat.I D: [id number] .Date: 09/25/2020 Refer .MD: JACQUELINE GUTHRIE MD Exam Time: 8:19:00 AM Study Type:Physiologic Leg Age: 4 1940,80Y Sex: FEMALE Sonogrphr: Mamie Traore RVT CPT - 4: 82676 Echo Event ID:[id number] Order ID: [id number] Reason for Study:Surveillance status pos t fem-fem [...] PHYSICIAN INTERPRETATION: 1. Resting ankle brachial indices sug st moderate lower extremity arterial occlusive disease, [...] Swartz MD, FACS, RPVI Performing Organization Address City/State/[facility] Code [facility] e Number [facility] [address] [place] [address] CTA Neck W Wo Contrast (03/21/2020 11:23 [...] artery or right ext racranial vertebral artery. [id number] Procedure Note Hm Interface, Radiology Results Incoming [...] subclavian artery or right extracranial vertebral artery. [id number] Performing Organization Address City/State/ZIP Code Phon e Number [facility] [address] [place] [address] Estimated GFR (03/21/2020 10:49 AM CDT) Estimated GFR 39 (A) mL/min/1.73 [facility] Comment: m2 HOSPITAL Catergory Units Interpretation G1 [...] in 2014. Specimen Blood Performing Organization Address [facility] Phon e Number [facility] DEPARTMENT OF PATHOLOGY AND [address] [place] [address] [phone] [address] POC creatinine (03/21/2020 10:49 AM CDT) POC creatinine 1.3 (H) 0.5 - 0.9 [facility] Comment: mg/dl HOSPITAL Meter ID: [id number] Button Bradder ID: Ana Maria Parsons Specimen Blood - Forearm, right Performing Organization Address [facility] Phon e Number [facility] DEPARTMENT OF PATHOLOGY AND [address] [place] [address] [phone] [address] after 10/19/2019 Advance Directives For more information, please contact: [phone] Type Date Recorded Patient Airline Flight Attendant Explanati on Advance Directives, Living Will and Medical Power of Segment Producer
--- OUTSIDE RECORDS SUMMARY | 2020-10-19 10:28 | XMS REPORT | Clinical Summary ---
:1940 Author Organization [facility] Address [address] [place] [address] Care Team Providers Name Role Phone Yunior [...] Team Description 05/15/2020 Lab Requisition Lab after 10/19/2019 Family History Medical History Relation Name Comments [...] procedure are in the results section. after 10/19/2019 Results SARS-CoV2/RT-PCR ([facility]) (05/15/2020 5:05 AM CDT) SARS-COV2/RT-PCR Negative Not Detected, [facility] Negative, See [facility] external report CENTER for linked test SARS-COV-2 [facility] PERFORMING LAB [facility] Specimen Other - Nasopharyngeal wall structure (b juan structure) Narrative Performed At Negative results do not preclude SARS-CoV-2 [facility] infection and should not be used as [...] the Act. Fact Sheet for Healthcare Providers: https://www.CloudJay/Documents/Xpert%20Xpre ss%20SARS%20CoV-2/Fact%20Sheets/3023802%20SAR S-COV-2%20HEALTHCARE%20PROVIDERS%20FACT%20SHEE T.pdf Fact Sheet for Healthcare Patients: https://www.CloudJay/Documents/Xpert%20Xpre ss%20SARS%20CoV-2/Fact%20Sheets/3023801%20SAR S-COV-2%20PATIENT%20FACT%20SHEET.pdf Performing Laboratory: [address] [place] [address] Performing Organization Address City/State/[place] [address] CENTER after 10/19/2019 Insurance Payer Benefit Plan / Subscriber ID Effective Dates Phone Addre ss Type Group AETNA - AETNA MEDICARE [id number] 2016-Oneil [phone] [address] MEDICARE MGD HMO POS PPO t 2 [id number] [place] [address] Advance Directives For more information, please contact: [phone] Code Status Date Activated Date Inactivated Comments Full Code 01/25/2017 1:46 AM 01/26/2017 1:49 PM This code status was determined by: Patient
--- OUTSIDE RECORDS SUMMARY | 2020-10-19 10:29 | XMS REPORT | Continuity of Care Document ---
:1940 Author Organization [facility] t Address [address] [place] [address] Dr. [address] [place] [address] Care Team Providers Name Role Phone PHYSICIAN Primary Care Physician Unavailable Ty Guthrie MD Attending Clinician Homar TERRAZAS Attending Clinician Unavailable Koko Gomez MD Attending Clinician Deborah ROBERTSON Attending Clinician Unavailable Lu Virgen MA Attending Clinician Unavailable JO-ANN WARREN Attending Clinician Unavailable JO-ANN WARREN Admitting Clinician Unavailable Payers Payer Name Policy Type Policy Number Effective Date Expiration Date S susan AETNA [id number] 2013 [place] MEDICAREAETNA 00:00:00 [place] MEDICARE HMO/PPO [id number] 4-PresentO AETNA - MEDICARE [id number] [address] [facility] - MGD CAREAETNA 00:00:[address] MEDICARE HMO POS [id number] [address] Problems Condition Condition Condition Status Onset Resolution [...] - collapse collapse 00:00: Medica l 00 [place] Essential Essential Disease Active 2015-10 Ajit mcclellan hypertensi hypertensi -08 Me thodi on on 00:00: st 00 PAD PAD Disease Active 2015-10 Last [place] (periphera (periphera 08 Assessmen Methodi l artery l artery 00:00: t & Plan: st disease) disease) 00 Improved symptoms. Continue medical optimizat ion and anti-coag ulation. Follow up in 6 months. 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 Natural mother Cancer [facility] Natural brother Heart disease [place] Paternal grandfather Heart disease [place] [facility] Natural sister Cancer [place] [facility] Social History Social Habit Start Date Stop Date Quantity Comments Source Sex Assigned At [place] [facility] Exposure to Not sure [place] SARS-CoV-2 (event) Method ist Cigarettes smoked 2020-09-25 2020-09-25 [place] current (pack per 00:00:00 00:00:[address] day) - Reported Cigarette 2020-09-25 2020-09-25 [place] pack-years 00:00:00 00:00:00 [facility] Tobacco use and 2020-09-25 2020-09-25 Never used [facility] exposure 00:00:00 00:00:00 [facility] Alcohol intake 2020-09-25 2020-09-25 Current drinker of Audie lott 00:00:00 00:00:00 alcohol (finding) Methodi st Alcohol Comment 2019-01-19 2019-01-19 ocasionally [place] 00:00:00 00:00:00 [facility] History of tobacco 2019-01-10 Current smoker [place] use 00:00:00 [facility] Smoking Status Start Date Stop Date Source Former smoker 2020-09-25 00:00:00 2020-09-25 00:00:00 [place] [facility] Current every day 2017-01-25 00:00:00 [facility] smoker Center Medications Ordered Filled Start [...] 2019- No TAKE ONE [place] (COZAAR) 6-01 06-15 TABLET BY Metho di 100 MG 00:00: 00:[address] tablet 00 :00 DAILY clopidogreL 2020- No TAKE ONE [place] (PLAVIX) 75 5-26 07-23 TABLET BY Me thodi mg tablet 00:00: 00:[address] 00 :00 DAILY losartan 2020- No TAKE ONE [place] (COZAAR) 3- 06- TABLET BY Metho di 100 MG 00:00: 00:[address] tablet 00 :00 DAILY clopidogrel 2020- No 75mg QD Take 75 mg [facility] (PLAVIX) 75 2-28 02-28 by mouth Met hodi mg tablet 08:17: 00:[address] 07 :00 clopidogreL 2020- No TAKE ONE [place] [...] MG 10:12: daily. st tablet 56 roflumilast 2019-0 Yes 500ug QD Take 500 [place] [...] ONE [place] e 605-03 unspecified TABLET BY Ms ara (PROTONIX) 00:00: 00:[address] [...] 10 MG 11:49: daily. Medical tablet 38 [place] citalopram 0 Yes anxiety 40mg QD Take [address] (CELEXA) 40 4-17 with by mouth Luke s - MG tablet 11:49: depression daily. [address] clopidogrel Yes 75mg QD Take [address] (PLAVIX) 75 4-17 by mouth Luke s - mg tablet 11:49: daily. Medica l 38 [place] aspirin 81 Yes 81mg QD Take [address] MG EC 4-17 by mouth [facility] - tablet 11:49: daily. [address] furosemide 0 Yes 20mg QD Take [address] (LASIX) 20 4-17 by mouth [facility] - MG tablet 11:49[facility] [address] [place] [address] anastrozole Yes 1mg QD Take [address] (ARIMIDEX) 4-17 by mouth [facility] - 1 mg tablet 11:49: daily. [facility] shane 38 [place]ters alendronate Yes postmenopau 70mg Take 70 mg [...] 11:49: daily with M edical 38 dinner. Salters traMADol Yes pain 50mg Take [address] (ULTRAM) 50 4-17 by mouth Luke s - mg tablet 11:49: as needed Med ical 38 for Pain. Salters zolpidem Yes 10mg Take [address] (AMBIEN) 10 4-17 by mouth Luke s - mg tablet 11:49: every Medical 38 night as Center needed for Insomnia. cloNIDine Yes .1mg Take 0.[address] HCl 4-17 mg by [facility] - (CATAPRES) 11:49: mouth as Med ical 0.1 MG 38 needed. Salters tablet predniSONE 2015-10 Yes 5mg QD Take [...] blood 2020-09-25 09:56:00 182 mm[Hg] Evangelist beck [facility] pressure Diastolic blood 2020-09-25 09:56:00 68 mm[Hg] [...] 92 /min on 2 liters Ajit ston [facility] in Arterial blood by Pulse oximetry Procedures Procedure Date / Time Performed Performing Clinician [facility] e US CAROTID DUPLEX 2020-09-25 10:13:29 Jacqueline Guthrie BILATERAL Ty US DUPLEX ARTERIAL 2020-09-25 10:13:14 Jacqueline Guthrie LOWER EXTREMITY Ty BILATERAL US ANKLE BRACHIAL 2020-09-25 08:32:22 Jacqueline Guthrie INDEX Ty SARS-COV2/RT-PCR ([facility] 2020-05-15 05:05:00 [facility] CT ANGIOGRAM NECK W WO 2020-03-21 11:23:49 BavJacqueline hamilton [place] [facility] CONTRAST Ty POC CREATININE 2020-03-21 10:49:00 Karla Vazquez Meth odist ESTIMATED GFR 2020-03-21 10:49:00 Karla Vazquez Meth odist US DUPLEX ARTERIAL 2020-03-14 15:10:09 Jacqueline Guthrie [place] [facility] LOWER EXTREMITY Ty BILATERAL US CAROTID DUPLEX 2020-03-14 15:09:56 Jacqueline Guthrie [facility] BILATERAL Ty Plan of Care Planned Activity Planned Date Details Comments Source Future Scheduled 2020-05-12 INFLUENZA VACCINE [place] [facility] Test 00:00:00 [code = INFLUENZA VACCINE] Future Scheduled 2006 65+ PNEUMOCOCCAL [place] [facility] Test 00:00:00 VACCINE (1 of 1 - PPSV23) [code = 65+ PNEUMOCOCCAL VACCINE (1 of 1 - PPSV23)] Future Scheduled 1991 SHINGLES VACCINES (#1) [place] [facility] Test 00:00:00 [code = SHINGLES VACCINES (#1)] Future Scheduled 1957 COVID-19 VACCINE (#1) [place] [facility] Test 00:00:00 [code = COVID-19 VACCINE (#1)] Encounters Start End Encounter Admission Attending Care Care Encounter Source Date/Time Date/Time Type Type Clinicians Facility Department ID 2020-09-25 2020-09-25 Outpatient [facility] [id number] [place] 00:00:00 00:00:00 [place] [address] 2020-09-25 2020-09-25 Outpatient [facility] [id number] [address] [place] [address] 00:00:00 00:00:00 [place] [address] 2020-09-25 2020-09-25 Outpatient [facility] [id number] [place] 00:00:00 00:00:00 [place] [address] 2020-09-25 2020-09-25 Outpatient [facility] [id number] [place] 00:00:00 00:00:00 [place] [address] 2020-03-28 2020-03-28 Outpatient [facility] [id number] [place] 00:00:00 00:00:00 CHARUDATTA 787 Met [facility] 2020-03-21 2020-03-21 Outpatient BAVARE, [facility] [id number] [place] 00:00:00 00:00:00 CHARUDATTA 632 Met [facility] 2020-03-14 2020-03-14 Outpatient BAVARE, [facility] [id number] [place] 00:00:00 00:00:00 CHARUDATTA 288 Met [facility] 2020-03-14 2020-03-14 Outpatient BAVARE, [facility] [id number] [place] 00:00:00 00:00:00 CHARUDATTA 028 Met [facility] 2019-12-13 2019-12-13 Outpatient GOMEZ, [facility] [id number] [place] 00:00:00 00:00:00 MARY [address] Results Test Description Test Time Test Comments Results Result Comments Source SARS-CoV2/RT-PCR ([facility] Ref Labs) 2020-05-15 15:57:00 Test Item Value Reference Range Interpretation Comme nts SARS-COV2/RT-PCR (test code = Negative Not Detected, 27874-4) Negative, See external report for linked test SARS-COV-[address] [facility] (test code = 14023-6) KAI (test code = KAI) Negative results [...] of the Act. Fact Sheet for Healthcare Providers:https://www.Magic Wheels/Documents/Xpert%20Xpress %20SARS%20CoV-2/Fact%20Sheets /3023802%63YUGB-VHA-0%20HEAL THCARE%20PROVIDERS%20FACT%20S HEET.pdf Fact Sheet for Healthcare Patients:https://www.KipCall/Documents/Xpert%20Xpress% 20SARS%20CoV-2/Fact%20Sheets/ 302-3801%40SUYY-EFM-2%20PATIE NT%20FACT%20SHEET.pdf Performing Laboratory:[place] [address] [address]ARS-COV2/RT-PCR ([facility])2020-05-15 15:57:00 Test Item Value Reference Range Interpretation Comments SARS-COV2/RT-PCR (test code Negative Not Detected, Negative, = [id number]) See external report for linked test SARS-COV-[address] [facility] (test code = 2312326) Negative results do not preclude SARS-CoV-2 infection [...] of the Act.Fact Sheet for Healthcare Pro viders:https://www.Miralupa/Documents/Xpert%20Xpress%20SARS%20CoV-2/Fact%20Sh eets/302-3802%22HQOE-WAQ-5%20HEALTHCARE%20PROVIDERS%20FACT%20SHEET.pdfFact Sheet for Healthcare Patients:https://www.TrueSpan.MtoV/Documents/Xpert%20Xpress%20SARS%20CoV-2/Fact%20Sheets/302-3801%20SARS-COV -2%20PATIENT%20FACT%20SHEET.pdfPerforming Laboratory:[facility], [place] [address]WUTASMBQYP [id number] 09:13:00 Test Item Value Reference Range Interpretation Comments HEMOGLOBIN A1C (BEAKER) (test code = 5.6 % 4.3-6.1 368) VITAMIN [id number] 07:58:00 Test Item Value Reference Range Interpretation Comments VITAMIN B12 (BEAKER) (test code = 317 pg/mL 213-816 774) TSH/FREE T4 IF [id number] 07:51:00 Test Item Value Reference Range Interpretation Comments THYROID STIMULATING HORMONE 1.65 uIU/mL 0.35-4.94 (BEAKER) (test code = 772) [id number] 07:37:00 Test Item Value Reference Range Interpretation Comments MAGNESIUM (BEAKER) (test code = 2.0 mg/dL 1.6-2.6 627) BASIC METABOLIC [id number] 07:37:00 Test Item Value Reference Range Interpretation [...] NOT APPLICABLE FOR DIALYSIS PATIEN TS. LIPID [id number] 07:37:00 Test Item Value Reference Range Interpretation [...] 130-159 High 160-189 Very High >=190HEPATIC FUNCTION [id number] 07:37:00 Test Item Value Reference Range Interpretation [...] 6-55 347) CBC W/PLT COUNT & AUTO [id number] 07:33:00 Test Item Value Reference Range Interpretation [...] K/ L 0.00-0.20 (test code = 417) 0.00PT/[id number] 07:04:00 Test Item Value Reference Range Interpretation [...] 2.5-3.5 for patients with mechanical heart valves.PROTHROMBIN [id number] 07:03:00 Test Item Value Reference Range Interpretation [...]
--- NOTE | 2020-10-19 11:06 | RAD REPORT ---
EXAM DESCRIPTION: RAD - Chest Single View - 10/19/2020 10:55 am CLINICAL HISTORY: DYSPNEA Chest pain. COMPARISON: Chest Single View dated 10/17/2020; Chest Single View dated 10/15/2020; Chest Single View da parvez 10/13/2020; Chest Single View dated 10/11/2020 FINDINGS: Portable technique limits examination quality. Mild left base infiltrate appears significantly improved since comparative study. No new or progressi ve pulmonary abnormality seen. The heart is upper limit normal in size. Aortic atherosclerosis.
[2020-10-19 11:29] LABS: Absolute Lymphocytes (CBC) 0.5 K/uL (0.7-4.9); Basophils % 0.1 % (0-1.3); Hematocrit 41.4 % (36.0-45.0); Lymphocytes % 2.6 % (15.3-44.8); MPV 9.3 fL (7.6-11.3); RBC Red Blood Cell Count 4.53 M/uL (3.86-4.86)
[2020-10-19 11:30] LABS: Protime INR 1.16
[2020-10-19 11:46] LABS: Bilirubin Direct 0.2 mg/dL (0-0.2); Bilirubin Total 0.6 mg/dL (0.2-1.0); Magnesium 2.5 mg/dL (1.8-2.4); Potassium 4.3 mmol/L (3.5-5.1); Protein, Total 6.1 g/dL (6.4-8.2); Troponin (Emerg Dept Use Only) 0.04 ng/mL (0.0-0.045)
[2020-10-19] MEDS ORDERED: ALBUTEROL 2.5 MG/3 ML NEB SOL ONE (11:46)
[2020-10-19] MEDS ORDERED: METHYLPREDNISOLONE 125 MG INJ ONE (11:46)
[2020-10-19] MEDS ORDERED: IPRATROPIUM BROM 0.5MG/2.5ML ONE (11:46)
[2020-10-19 11:48] LABS: Blood Morphology Comment NOT SEEN (NOT SEEN); Platelet Estimate ADEQ; Platelets, Giant FEW
[2020-10-19] MEDS ORDERED: NA CHLORIDE 0.9% 1,000 ML ONE ×2 (12:58→14:50)
--- NOTE | 2020-10-19 13:16 | EDPHYS ---
Physician Documentation [facility] Name: Michelle Benson Age: 80 yrs Sex: Female : 1940 Arrival Date: 10/19/2020 Time: 10:29 Bed 15 Private MD: ED Physician Jorge Rowe HPI: 10/19 11:21 This 80 yrs old Female presents to ER via EMS with complaints of shortness of jr8 breath. 11:21 The patient has shortness of breath at rest. Onset: The symptoms/episode began/occurred jr8 acutely, today. Duration: The symptoms are continuous. The patient's shortness of breath has no apparent modifying factors. Associated signs and symptoms: Pertinent positives: fatigue. Severity of symptoms: At their worst the symptoms were moderate in the emergency department the symptoms are unchanged. The patient has experienced a previous episode. The patient has been recently seen by a physician:. 11:23 Patient d/c'd from hospital yesterday after having complications from pneumonia and jr8 COPD requiring intubation. Stated that she felt better upon discharge yesterday. Was attending husbands today when she started to feel fatigued and short of breath again. Historical: - Allergies: 10:36 Codeine; ec1 10:36 perindopril erbumine; ec1 - Home Meds: 10:36 Ambien 5 mg Oral tab nightly [Active]; aspirin 81 mg Oral TbEC 1 tab once daily ec1 [Active]; Brovana 15 mcg/2 mL inhalation nebu 2 mL 2 times per day [Active]; bupropion HCl 100 mg Oral tab 1 tab 2 times per day [Active]; citalopram 40 mg tab 1 tab once daily [Active]; clopidogrel 75 mg Oral tab 1 tab once daily [Active]; Crestor 10 mg Oral tab 1 tab once daily [Active]; Daliresp 500 mcg Oral tab 1 tab once daily [Active]; hydralazine 25 mg Oral tab as needed [Active]; ipratropium-albuterol 0.5 mg-3 mg(2.5 mg base)/3 mL Inhl nebu 4 times per day [Active]; levothyroxine 100 mcg tab 1 tab once daily [Active]; losartan 50 mg Oral tab once daily [Active]; Lyrica 75 mg Oral 1 cap daily [Active]; metoprolol tartrate 12.5 mg Oral tab 1 tab 2 times per day [Active]; Oxygen \T\ 2L PRN and at night [Active]; pantoprazole 40 mg Oral TbEC 1 tab once daily [Active]; potassium chloride 20 mEq Oral TbER 1 tab once daily [Active]; prednisone 5 mg Oral tab once daily [Active]; Spiriva Respimat 2.5 mcg/actuation inhalation mist 2 puffs once daily [Active]; spironolactone 50 mg Oral tab 1 tab 2 times per day [Active]; tramadol 50 mg Oral tab 1 tab as needed [Active]; Ventolin HFA 90 mcg/actuation Nebulizer HFAA 2 puffs every 4 hours [Active]; - Immunization history:: Adult Immunizations unknown. - Social history:: Smoking status: . ROS: 11:23 Eyes: Negative for injury, pain, redness, and discharge, ENT: Negative for injury, jr8 pain, and discharge, Neck: Negative for injury, pain, and swelling, Cardiovascular: Negative for chest pain, palpitations, and edema, Abdomen/GI: Negative for abdominal pain, nausea, vomiting, diarrhea, and constipation, Back: Negative for injury and pain, MS/Extremity: Negative for injury and deformity, Skin: Negative for injury, rash, and discoloration, Neuro: Negative for headache, weakness, numbness, tingling, and seizure. 11:23 Constitutional: Positive for fatigue. 11:23 Respiratory: Positive for dyspnea on exertion, shortness of breath, wheezing. Exam: 11:23 Eyes: Pupils equal round and reactive to light, extra-ocular motions intact. Lids and jr8 lashes normal. Conjunctiva and sclera are non-icteric and not injected. Cornea within normal limits. Periorbital areas with no swelling, redness, or edema. ENT: Nares patent. No nasal discharge, no septal abnormalities noted. Tympanic membranes are normal and external auditory canals are clear. Oropharynx with no redness, swelling, or masses, exudates, or evidence of obstruction, uvula midline. Mucous membranes moist. Neck: Trachea midline, no thyromegaly or masses palpated, and no cervical lymphadenopathy. Supple, full range of motion without nuchal rigidity, or vertebral point tenderness. No Meningismus. Cardiovascular: Regular rate and rhythm with a normal S1 and S2. No gallops, murmurs, or rubs. Normal PMI, no JVD. No pulse deficits. Abdomen/GI: Soft, non-tender, with normal bowel sounds. No distension or tympany. No guarding or rebound. No evidence of tenderness throughout. Back: No spinal tenderness. No costovertebral tenderness. Full range of motion. Skin: Warm, dry with normal turgor. Normal color with no rashes, no lesions, and no evidence of cellulitis. MS/ Extremity: Pulses equal, no cyanosis. Neurovascular intact. Full, normal range of motion. Neuro: Awake and alert, GCS 15, oriented to person, place, time, and situation. Cranial nerves II-XII grossly intact. Motor strength 5/5 in all extremities. Sensory grossly intact. 11:23 Respiratory: mild respiratory distress is noted, Respirations: tachypnea, Breath sounds: decreased breath sounds, that are mild, are scattered, wheezing: expiratory that is mild, is heard diffusely. Vital Signs: 10:29 BP 118 / 45; Pulse 56; Resp 22; Temp 98.2; Pulse Ox 95% on R/A; Weight 67.13 kg (R); ec1 Height 5 ft. 10 in. (177.80 cm) (R); Pain 0/10; 11:33 BP 106 / 44; Pulse 55; Resp 24 S; Pulse Ox 89% on R/A; ec1 11:48 Pulse Ox 100% on Nebulizer Mask; ec1 12:30 BP 125 / 53; Pulse 53; Resp 25 S; Pulse Ox 100% on 2 lpm NC; ec1 13:00 Pulse Ox 2 lpm NC; ec1 13:30 BP 129 / 58; Pulse 56; Resp 26 S; Pulse Ox 100% on 2 lpm NC; ec1 14:00 BP 123 / 64; Pulse 56; Resp 16 S; Pulse Ox 100% on 2 lpm NC; ec1 15:00 BP 126 / 48; Pulse 59; Resp 22 S; Pulse Ox 99% on 2 lpm NC; ec1 16:00 BP 131 / 53; Pulse 60; Resp 22 S; Pulse Ox 98% on 2 lpm NC; ec1 17:30 BP 129 / 57; Pulse 61; Resp 24 S; Pulse Ox 99% on 2 lpm NC; ec1 20:00 BP 130 / 53; Pulse 62; Resp 22; Pulse Ox 98% 2 lpm ; zb 10:29 Body Mass Index 21.24 (67.13 kg, 177.80 cm) ec1 MDM: 10:30 Patient medically screened. jr8 13:14 Data reviewed: vital signs, nurses notes, lab test result(s), EKG, radiologic studies, jr8 plain films. Data interpreted: Pulse oximetry: on room air is 100 %. Interpretation: normal. Counseling: I had a detailed discussion with the patient and/or guardian regarding: the historical points, exam findings, and any diagnostic results supporting the discharge/admit diagnosis, lab results, radiology results, the need for further work-up and treatment in the hospital. ED course: spoke with Dr. Hurley. Wants to admit patient and lightly hydrate to see if we can reverse renal dysfunction . 16:32 ED course: After Dr. Patton saw patient and reviewed previous chart. Patient was jr8 suppose to be going to rehab. Patient would only meet criteria for obs at this time which will negate rehab. This was discussed with patient. Patient will to try going home after we hydrate her down here. We also notified Dr. Hurley . 10/19 10:32 Order name: Basic Metabolic Panel [facility] 10/19 10:32 Order name: CBC with Diff; Complete Time: 12:15 [facility] 10/19 10:32 Order name: LFT's; Complete Time: 12:15 [facility] 10/19 10:32 Order name: Magnesium; Complete Time: 12:15 [facility] 10/19 10:32 Order name: NT PRO-BNP; Complete Time: 12:15 [facility] 10/19 10:32 Order name: PT-INR; Complete Time: 11:37 10/19 10:32 Order name: Troponin (emerg Dept Use Only); Complete Time: 12:15 [facility] 10/19 10:32 Order name: Blood Culture Adult (2) [facility] 10/19 10:32 Order name: Procalcitonin; Complete Time: 12:15 [facility] 10/19 10:32 Order name: Lactate; Complete Time: 12:15 [facility] 10/19 10:32 Order name: Basic Metabolic Panel; Complete Time: 12:15 [facility] 10/19 11:32 Order name: Manual Differential; Complete Time: 12:15 [facility] 10/19 16:32 Order name: CBC with Diff 10/19 16:32 Order name: BMP; Complete Time: 17:21 10/19 10:32 Order name: XRAY Chest (1 view); Complete Time: 11:18 10/19 10:32 Order name: EKG; Complete Time: 10:33 10/19 10:32 Order name: Cardiac monitoring; Complete Time: 10:57 10/19 10:32 Order name: EKG - Nurse/Tech; Complete Time: 11:05 10/19 10:32 Order name: IV Saline Lock; Complete Time: 10:57 10/19 10:32 Order name: Labs collected and sent; Complete Time: 11:19 10/19 10:32 Order name: O2 Per Protocol; Complete Time: 10:57 10/19 10:32 Order name: O2 Sat Monitoring; Complete Time: 10:57 Administered Medications: 11:37 Drug: SOLU-Medrol 125 mg Route: IVP; Site: right antecubital; tw2 12:20 Follow up: Response: No adverse reaction ec1 11:37 Drug: Albuterol - atroVENT (3:1) (2.5 mg - 0.5 mg) 3 ml Route: Nebulizer; tw2 12:20 Follow up: Response: No adverse reaction ec1 12:22 Not Given (Physician Discretion): NS 0.9% 1000 ml IV at 1000 ml once jr8 14:40 Drug: NS 0.9% 1000 ml Route: IV; Rate: 50 ml/hr; Site: right forearm; ec1 20:18 Follow up: Response: No adverse reaction; IV Status: Completed infusion; IV Intake: zb 100ml 16:19 Drug: NS 0.9% 250 ml Route: IV; Rate: calculated rate; Site: right forearm; ec1 17:00 Follow up: Rate change calculated rate; IV Status: Completed infusion; IV Intake: 250ml ec1 17:43 Drug: NS 0.9% 250 ml Route: IV; Rate: bolus; Site: right forearm; ec1 18:56 Follow up: IV Status: Completed infusion; IV Intake: 250ml ec1 20:17 Follow up: Response: No adverse reaction; IV Status: Completed infusion; IV Intake: zb 250ml Disposition: 10/20 09:18 Co-signature as Attending Physician, Jorge Rowe MD. rn Disposition: 10/19/20 18:40 Discharged to Home. Impression: Chronic obstructive pulmonary disease with (acute) exacerbation, Acute kidney failure. - Condition is Stable. - Discharge Instructions: Chronic Obstructive Pulmonary Disease, Acute Kidney Injury, Adult, Chronic Kidney Disease, Adult. - Medication Reconciliation Form, Thank You Letter, Antibiotic Education, Prescription Opioid Use form. - Follow up: Yunior Montgomery MD; When: 2 - 3 days; Reason: Recheck today's complaints, Continuance of care, Re-evaluation by your physician. - Problem is new. - Symptoms have improved. Signatures: Dispatcher [employer] EDMS Jorge Rowe MD MD rn Roszak, Josh, PA PA jr8 Anna Damon, RN RN tw2 Marilee Evangelista RN RN Gregoria Parker, RN RN ec1 Corrections: (The following items were deleted from the chart) 10/19 14:55 13:16 Hospitalization Ordered by Isaiah Rowe MD for Observation. Preliminary jr8 diagnosis is Acute kidney failure; Chronic obstructive pulmonary disease with (acute) exacerbation. Bed requested for Telemetry/MedSurg (observation). Status is Observation. Condition is Stable. Problem is new. Symptoms have improved. jr8 20:23 18:40 10/19/2020 18:40 Discharged to Home. Impression: Chronic obstructive pulmonary zb disease with (acute) exacerbation; Acute kidney failure. Condition is Stable. Forms are Medication Reconciliation Form, Thank You Letter, Antibiotic Education, Prescription Opioid Use. Follow up: Yunior Montgomery; When: 2 - 3 days; Reason: Recheck today's complaints, Continuance of care, Re-evaluation by your physician. Problem is new. Symptoms have improved. jr8
--- NOTE | 2020-10-19 13:16 | ER ---
Nurse's Notes [facility] Name: Michelle Benson Age: 80 yrs Sex: Female : 1940 Arrival Date: 10/19/2020 Time: 10:29 Bed 15 Private MD: Diagnosis: Chronic obstructive pulmonary disease with (acute) exacerbation;Acute kidney failure Presentation: 10/19 10:29 Chief complaint: EMS states: [facility] states: Pt is a 80 female who has a history of ec1 copd and htn. She was recently discharged from here yesterday. She was admitted on the and had to be intubated at that time. She reports that she was feeling sob, weak and nauseous. Her family reported that she wears a NC on demand and some sort of pap. She was 93% on room air. afib in 50's. We placed her on 4 L NC and it came up to 98%-100%. Coronavirus screen: Client denies travel out of the [place] in the last 14 days. Ebola Screen: Patient negative for fever greater than or equal to 101.5 degrees Fahrenheit, and additional compatible Ebola Virus Disease symptoms Patient denies exposure to infectious person. Patient denies travel to an Ebola-affected area in the 21 days before illness onset. Initial Sepsis Screen: Does the patient meet any 2 criteria? RR > 20 per min. No. Patient's initial sepsis screen is negative. Does the patient have a suspected source of infection? No. Patient's initial sepsis screen is negative. Risk Assessment: Do you want to hurt yourself or someone else? Patient reports no desire to harm self or others. Onset of symptoms was October 19, 2020. 10:29 Method Of Arrival: EMS: [facility] ec1 10:29 Acuity: RHIANNON 2 ec1 Historical: - Allergies: 10:36 Codeine; ec1 10:36 perindopril erbumine; ec1 - Home Meds: 10:36 Ambien 5 mg Oral tab nightly [Active]; aspirin 81 mg Oral TbEC 1 tab once daily ec1 [Active]; Brovana 15 mcg/2 mL inhalation nebu 2 mL 2 times per day [Active]; bupropion HCl 100 mg Oral tab 1 tab 2 times per day [Active]; citalopram 40 mg tab 1 tab once daily [Active]; clopidogrel 75 mg Oral tab 1 tab once daily [Active]; Crestor 10 mg Oral tab 1 tab once daily [Active]; Daliresp 500 mcg Oral tab 1 tab once daily [Active]; hydralazine 25 mg Oral tab as needed [Active]; ipratropium-albuterol 0.5 mg-3 mg(2.5 mg base)/3 mL Inhl nebu 4 times per day [Active]; levothyroxine 100 mcg tab 1 tab once daily [Active]; losartan 50 mg Oral tab once daily [Active]; Lyrica 75 mg Oral 1 cap daily [Active]; metoprolol tartrate 12.5 mg Oral tab 1 tab 2 times per day [Active]; Oxygen \T\ 2L PRN and at night [Active]; pantoprazole 40 mg Oral TbEC 1 tab once daily [Active]; potassium chloride 20 mEq Oral TbER 1 tab once daily [Active]; prednisone 5 mg Oral tab once daily [Active]; Spiriva Respimat 2.5 mcg/actuation inhalation mist 2 puffs once daily [Active]; spironolactone 50 mg Oral tab 1 tab 2 times per day [Active]; tramadol 50 mg Oral tab 1 tab as needed [Active]; Ventolin HFA 90 mcg/actuation Nebulizer HFAA 2 puffs every 4 hours [Active]; - Immunization history:: Adult Immunizations unknown. - Social history:: Smoking status: . Screenin:42 Abuse screen: Denies threats or abuse. Denies injuries from another. Nutritional ec1 screening: No deficits noted. Tuberculosis screening: No symptoms or risk factors identified. Fall Risk No fall in past 12 months (0 pts). Secondary diagnosis (15 points) IV access (20 points). Ambulatory Aid- None/Bed Rest/Nurse Assist (0 pts). Gait- Weak (10 pts.). Mental Status- Oriented to own ability (0 pts). Assessment: 11:42 General: Appears ill, Behavior is calm, cooperative. Pain: Complains of pain in ec1 abdomen. Neuro: Level of Consciousness is awake, alert, obeys commands. Cardiovascular: Patient's skin is warm and dry. Respiratory: Airway is patent Respiratory effort is even, unlabored, Respiratory pattern is tachypnea Breath sounds are coarse bilaterally. GI: Reports nausea. : No signs and/or symptoms were reported regarding the genitourinary system. EENT: No signs and/or symptoms were reported regarding the EENT system. Derm: No signs and/or symptoms reported regarding the dermatologic system. Musculoskeletal: No signs and/or symptoms reported regarding the musculoskeletal system. 13:02 Reassessment: No changes from previously documented assessment. Patient and/or family ec1 updated on plan of care and expected duration. Pain level reassessed. 14:01 Reassessment: Patient appears in no apparent distress at this time. No changes from ec1 previously documented assessment. Patient and/or family updated on plan of care and expected duration. Pain level reassessed. 16:22 Reassessment: Patient appears in no apparent distress at this time. No changes from ec1 previously documented assessment. Patient and/or family updated on plan of care and expected duration. Pain level reassessed. Pt resting in bed. No s/s of distress. Pt updated on plan of care. 17:35 Reassessment: Patient appears in no apparent distress at this time. No changes from ec1 previously documented assessment. Patient and/or family updated on plan of care and expected duration. Pain level reassessed. 20:19 General: Appears in no apparent distress. comfortable, Behavior is calm, cooperative, zb appropriate for age. Pain: Denies pain. Neuro: Level of Consciousness is awake, alert, obeys commands. Cardiovascular: Patient's skin is warm and dry. Respiratory: Airway is patent Respiratory effort is even, unlabored, Respiratory pattern is symmetrical, tachypnea. Respiratory: Reports shortness of breath at rest. GI: Reports. GI: No signs and/or symptoms were reported involving the gastrointestinal system. : No signs and/or symptoms were reported regarding the genitourinary system. EENT: No signs and/or symptoms were reported regarding the EENT system. Derm: Skin is intact, is thin, Skin is dry, Skin is normal. 20:19 Musculoskeletal: Circulation, motion, and sensation intact. Capillary refill < 3 zb seconds, in bilateral fingers. Range of motion: intact in all extremities. Vital Signs: 10:29 BP 118 / 45; Pulse 56; Resp 22; Temp 98.2; Pulse Ox 95% on R/A; Weight 67.13 kg (R); ec1 Height 5 ft. 10 in. (177.80 cm) (R); Pain 0/10; 11:33 BP 106 / 44; Pulse 55; Resp 24 S; Pulse Ox 89% on R/A; ec1 11:48 Pulse Ox 100% on Nebulizer Mask; ec1 12:30 BP 125 / 53; Pulse 53; Resp 25 S; Pulse Ox 100% on 2 lpm NC; ec1 13:00 Pulse Ox 2 lpm NC; ec1 13:30 BP 129 / 58; Pulse 56; Resp 26 S; Pulse Ox 100% on 2 lpm NC; ec1 14:00 BP 123 / 64; Pulse 56; Resp 16 S; Pulse Ox 100% on 2 lpm NC; ec1 15:00 BP 126 / 48; Pulse 59; Resp 22 S; Pulse Ox 99% on 2 lpm NC; ec1 16:00 BP 131 / 53; Pulse 60; Resp 22 S; Pulse Ox 98% on 2 lpm NC; ec1 17:30 BP 129 / 57; Pulse 61; Resp 24 S; Pulse Ox 99% on 2 lpm NC; ec1 20:00 BP 130 / 53; Pulse 62; Resp 22; Pulse Ox 98% 2 lpm ; zb 10:29 Body Mass Index 21.24 (67.13 kg, 177.80 cm) ec1 ED Course: 10:29 Patient arrived in ED. ec1 10:30 Marty Goncalves PA is PHCP. jr8 10:30 Jorge Rowe MD is Attending Physician. jr8 10:33 Triage completed. ec1 10:46 Gregoria Gupta, AILYN is Primary Nurse. ec1 10:50 EKG done, by ED staff, reviewed by Marty MTZ. dh3 10:55 XRAY Chest (1 view) In Process Unspecified. EDMS 10:58 Inserted saline lock: 22 gauge in right hand, using aseptic technique. ec1 11:20 Inserted saline lock: 20 gauge in right forearm, using aseptic technique. Blood ec1 collected. 11:42 Patient has correct armband on for positive identification. Placed in gown. Bed in low ec1 position. Call light in reach. 13:15 Isaiah Rowe MD is Hospitalizing Provider. jr8 18:39 Yunior Montgomery MD is Referral Physician. jr8 19:24 Report given to Marilee ROBERTSON. ec1 20:21 No provider procedures requiring assistance completed. IV discontinued, intact, zb bleeding controlled, No redness/swelling at site. Pressure dressing applied. 20:22 Arm band placed on. zb Administered Medications: 11:37 Drug: SOLU-Medrol 125 mg Route: IVP; Site: right antecubital; tw2 12:20 Follow up: Response: No adverse reaction ec1 11:37 Drug: Albuterol - atroVENT (3:1) (2.5 mg - 0.5 mg) 3 ml Route: Nebulizer; tw2 12:20 Follow up: Response: No adverse reaction ec1 12:22 Not Given (Physician Discretion): NS 0.9% 1000 ml IV at 1000 ml once jr8 14:40 Drug: NS 0.9% 1000 ml Route: IV; Rate: 50 ml/hr; Site: right forearm; ec1 20:18 Follow up: Response: No adverse reaction; IV Status: Completed infusion; IV Intake: zb 100ml 16:19 Drug: NS 0.9% 250 ml Route: IV; Rate: calculated rate; Site: right forearm; ec1 17:00 Follow up: Rate change calculated rate; IV Status: Completed infusion; IV Intake: 250ml ec1 17:43 Drug: NS 0.9% 250 ml Route: IV; Rate: bolus; Site: right forearm; ec1 18:56 Follow up: IV Status: Completed infusion; IV Intake: 250ml ec1 20:17 Follow up: Response: No adverse reaction; IV Status: Completed infusion; IV Intake: zb 250ml Intake: 17:00 IV: 250ml; Total: 250ml. ec1 18:56 IV: 250ml; Total: 500ml. ec1 20:17 IV: 250ml; Total: 750ml. zb 20:18 IV: 100ml; Total: 850ml. zb Outcome: 13:16 Decision to Hospitalize by Provider. jr8 18:40 Discharge ordered by . jr8 20:21 Discharged to home via wheelchair, w/ o2 at 2L. pt states her son was bring her oxygen zb 20:21 Condition: stable 20:21 Discharge instructions given to patient, Instructed on discharge instructions, follow up and referral plans. medication usage, Demonstrated understanding of instructions, follow-up care, medications, Prescriptions given X 3. 20:23 Patient left the ED. zb Signatures: Dispatcher [employer] EDMS Marty Goncalves PA PA jr8 Anna Damon RN RN tw2 Courtney Stephens 3 Marilee Evangelista RN RN zb Gregoria Gupta RN RN ec1
[2020-10-19] MEDS ORDERED: NA CHLORIDE 0.9% 250 ML ONE ×2 (16:32→17:56)
[2020-10-19 17:01] LABS: Absolute Lymphocytes (CBC) 0.2 K/uL (0.7-4.9); Hematocrit 37.7 % (36.0-45.0); Lymphocytes % 1.2 % (15.3-44.8); MPV 9.2 fL (7.6-11.3); RBC Red Blood Cell Count 4.13 M/uL (3.86-4.86)
--- NOTE | 2020-10-19 17:14 | P.CNS ---
Date of Consult: 10/19/20 Reason for Consult: ER evaluation for admission Requesting Physician: Jorge Rowe Primary Care Provider: Dr. Montgomery Chief Complaint: Fatigue, shortness of breath History of Present Illness: 80-year-old female presented with shortness of breath. Patient recently hospitalized in a hospital yesterday from complications with pneumonia and COPD requiring intubation. Patient left yesterday to attend her today. Prior to discharge home oxygen and non invasive ventilator was arranged. Also prior to discharge yesterday patient was being evaluated for inpatient rehab. Patient felt short of breath after . She came to the ER for further evaluation. In the ER patient was evaluated. Vital signs stable. Patient stable on a oxygen. Patient appeared mildly dehydrated. Patient was treated in the emergency room. I was asked to evaluate patient for possible admission. Allergies codeine Allergy (Verified 01/10/18 02:21) Unknown perindopril erbumine [From Aceon] Allergy (Verified 01/10/18 02:21) UNKNOWN Home Medications: RX: Albuterol Inhaler [Ventolin Inhaler*] 2 puff IH Q4H PRN 09/03/18 RX: Buproprion S.r. [Wellbutrin Sr*] 100 mg PO BID 09/03/18 RX: Citalopram [Celexa*] 40 mg PO DAILY 09/03/18 RX: Ipratropium/Albuterol Sulfate [Iprat-Albut 0.5-3(2.5) mg/3 ml] 3 ml PO QID PRN 09/03/18 RX: Levothyroxine [Synthroid*] 100 mcg PO [id number] 09/03/18 RX: Pantoprazole Sodium [Protonix] 40 mg PO DAILY 09/03/18 RX: Pregabalin [Lyrica*] 75 mg PO BEDTIME 09/03/18 RX: Roflumilast [Daliresp*] 500 mcg PO DAILY 09/03/18 RX: Rosuvastatin [Crestor*] 10 mg PO BEDTIME 09/03/18 RX: Spironolactone [Aldactone] 50 mg PO BID PRN 09/03/18 RX: Zolpidem Tartrate [Ambien*] 5 mg PO BEDTIME PRN 09/03/18 RX: Aspirin Chewable [Aspirin Chewable*] 81 mg PO DAILY 05/15/20 predniSONE [Deltasone] 5 mg PO DAILY 05/15/20 Albuterol Sulfate [Ventolin Hfa] 2 inhaler IH Q4HR 10/10/20 Arformoterol Tartrate [Brovana] 2 ml IH BID 10/10/20 RX: Clopidogrel Bisulfate [Plavix] 75 mg PO DAILY 10/10/20 RX: Potassium Chloride 20 meq PO DAILY 10/10/20 Tiotropium [place] [Spiriva Respimat] 4 gm IH DAILY 10/10/20 Amox/Clavulanate [Augmentin 875-125 Tab] 875 mg PO BID 10 Days #20 tab 10/18/20 Apixaban [Eliquis] 2.5 mg PO BID 30 Days #60 tablet 10/18/20 Furosemide [Lasix] 40 mg PO DAILY 30 Days #30 tab 10/18/20 NIFEdipine [Nifedipine ER] 90 mg PO DAILY 30 Days #30 tab.er.24 10/18/20 RX: Hydralazine HCl [Apresoline] 50 mg PO TID 30 Days #90 tablet 10/18/20 RX: Nitroglycerin Patch [Transderm-Nitro 0.4MG/Hr Patch*] 1 each TD DAILY 30 Days #30 patch.td24 10/18/20 Sotalol HCl [Betapace] 80 mg PO BID 30 Days #60 tab 10/18/20 - Past Medical/Surgical History Diabetic: No -: History of breast cancer -: History of throat cancer -: Hypertension -: Hypothyroidism -: COPD, steroid and oxygen-dependent -: Peripheral vascular disease -: Carotid arterial disease -: CHF -: Hyperlipidemia -: Obstructive sleep apnea -: Neuropathy -: Tobacco abuse -: Hysterectomy -: Hemorrhoidectomy -: Radiation to the vocal cords -: Stents to the lower extremity and carotid -: Bilateral eye surgery -: Left-sided mastectomy -: chemotherapy Psychosocial/ Personal History: Patient is . She has children. She does not work. - Family History Father Medical History: Heart disease Mother Medical History: Cancer Sister Medical History: Cancer Notes: Brother Medical History: Heart disease Notes: - Social History Smoking Status: Current every day smoker Alcohol use: No CD- Drugs: No Caffeine use: No Place of Residence: Home Review of Systems General: Weakness, As per HPI Eyes: Unremarkable ENT: Unremarkable Respiratory: Shortness of Breath, As per HPI Cardiovascular: Unremarkable Gastrointestinal: Unremarkable Genitourinary: Unremarkable Musculoskeletal: Unremarkable Integumentary: Unremarkable Neurological: Unremarkable Lymphatics: Unremarkable Physical Examination General: Alert, In no apparent distress, Oriented x3, Cooperative HEENT: Atraumatic Neck: Supple Respiratory: Clear to auscultation bilaterally, Normal air movement Cardiovascular: Normal pulses, Regular rate/rhythm Gastrointestinal: Normal bowel sounds, Soft and benign, Non-distended, No tenderness, No masses, No rebound, No guarding Musculoskeletal: No tenderness, No warmth Integumentary: No cyanosis Neurological: Normal speech, Normal strength at 5/5 x4 extr, Normal tone, Other (Increase anxiety) Laboratory Data (last 24 hrs) 10/19/20 11:13: PT 13.7 H, INR 1.16 10/19/20 11:13: WBC 19.6 H D, Hgb 13.1, Hct 41.4, Plt Count 338 D 10/19/20 11:13: Sodium 135 L, Potassium 4.3, BUN 86 H, Creatinine 2.58 H, Glucose 132 H, Magnesium 2.5 H, Total Bilirubin 0.6, AST 15, ALT 31, Alkaline Phosphatase 57 Conclusions/Impression: Impression: Shortness of breath with recent pneumonia and COPD exacerbation Acute on chronic renal disease stage IV Grief reaction Atrial fibrillation no longer on chronic anti coagulation therapy Hypertension PVD Plan: Patient was evaluated in emergency room. Patient appears stable from a respiratory standpoint. Patient does appear dehydrated. Patient medication had been adjusted in a course of her stay. Patient was given Lasix prior to d ischarge. Her beta adam was discontinued as the patient is now on sotalol. Her chronic anti coagulation therapy was discontinued in place of Plavix. Case discussed in detail with Nephrology. Will hydrate patient in the emergency room. Recheck lab. If stable patient can be discharged home. Patient has a NIV with home oxygen. Patient will continue with home medications. May need to decrease Lasix at home. Continue home medication. Care discussed in detail with patient who agrees with plan of care. Case discussed with ER provider who will hydrate the patient with IV fluids and recheck lab. If stable patient can be discharged home. Patient should follow up with PCP within 1 week. Time Spent Managing Pts care (In Minutes): 55
[2020-10-19 17:18] LABS: Potassium 4.8 mmol/L (3.5-5.1)
[2020-10-19 20:46] LABS: Blood Morphology Comment NOT SEEN (NOT SEEN); Platelet Estimate ADEQ; White Blood Cell Scan OK (OK)
[2020-10-19 21:29] VITALS: TEMP 98.2
[2020-10-19 21:41] VITALS: BP 130/53; O2SAT 98
--- NOTE | 2020-10-19 22:31 | EKG ---
Test Date: 2020-10-19 Test Time: 10:36:59 Quantitative Consultant: JAY MEASUREMENT RESULTS: Intervals: Rate: 55 ME: 140 QRSD: 94 QT: 490 QTc: 468 [place]: P: 73 ME: 140 QRS: 62 T: -27 INTERPRETIVE STATEMENTS: Sinus bradycardia Abnormal QRS-T angle, consider primary T wave abnormality Abnormal ECG Compared to ECG 10/11/2020 20:14:50 T-wave abnormality now present Atrial fibrillation no longer present Myocardial infarct finding no longer present Electronically Signed On 10-19-20 22:29:28 MAT TESTER by Randall Urias
== END 2020-10-19 20:23 | disposition home or self-care (01) ==
LOC: ER 10:23
DX: J44.9 Chronic obstructive pulmonary disease, unspecified (principal); N17.9 Acute kidney failure, unspecified; I10 Essential (primary) hypertension; Z88.6 Allergy status to analgesic agent; Z88.8 Allergy status to other drugs, medicaments and biological substances
CPT/HCPCS: 96365; 96361; 93005; 87040 ×2; 85025 ×2; 80048 ×2; 36415; 83735; 85610; 80076; 83605; 84484; 84145; 83880; 71045; 96375; 99285; 96366; J7050 ×2; J7030 ×2; J2930

== ENCOUNTER 2020-10-27 23:53 | Inpatient (IN) | payer OTHER ==
--- OUTSIDE RECORDS SUMMARY | 2020-10-27 23:55 | XMS REPORT | Clinical Summary ---
:1940 Author Organization [facility] Address [address] [place] [address] Care Team Providers Name Role Phone MD [...] Follow up in 6 months. CAD in [place] artery 08/19/2016 Bilateral carotid artery disease 08/19/2016 [...] 01/04/2020 Travel 01/02/2020 Orders Only Cardiovascular Maria Treesa Cabrera RN PAD (peripheral artery disease) ([facility]) (Primary Dx); Bilateral carot id artery stenosis 01/02/2020 Travel 01/02/2020 Telephone Cardiovascular Jacqueline Guthrie MD 12/13/2019 Office Visit Cardiology Jewel Kebede MD PAD (per ipheral artery disease) ([facility]) (Primary Dx); Bilateral carot id artery occlusion; Essential hyper tension 12/12/2019 Refill Cardiology Jewel Kebede MD Med Refi ll 12/08/2019 Refill Cardiology Jewel Kebede MD Med Refi ll after 10/27/2019 Surgical History Surgery Date Site/Laterality Comments CATARACT EXTRACTION Bilateral EXTRACAPSULAR W/ INTRAOCULAR LENS IMPLANTATION BYPASS GRAFT 10/12/1999 - artery bilateral 10/11/2000 leg--Dr. Maycol Russo CARDIAC CATHETERIZATION 01/19/2019 Radial Procedur e: Cv aortogram abdominal aorta; Surgeon: Jewel Kebede MD; Location: [facility] Packaging Materials Inspector Invasive Location; Service: Cardiology; Laterality: Radial; abdominal aorta with run offs poss stent radial access MASTECTOMY 10/12/2013 - Left 10/11/2014 HYSTERECTOMY 10/12/1972 - 10/11/1973 ENDARTERECTOMY, FEMORAL 02/03/2019 Groin/Bilateral Procedur e: COMMON FEMORAL ENDARTER ECTOMY, BILATERAL; Surg rober: Olivia Guthrie MD; Location: [facility] OR; Service: Va scular; Laterality: Seven ateral; Medical devices from this surgery are in the Implants section . Medical History Medical History Date Comments Carotid artery occlusion patient/spouse reports a "stent in the carotid" Cancer ([facility]) breast,skin throat, ear cancer Hyperlipidemia Anesthesia slow to wake up with mastectomy--2012 / Dental spiritism present dental implan ts CHF (congestive heart failure) ([facility]) [address] Jewel Kebede COPD (chronic obstructive pulmonary BIPA P--managed by Dr. Karthik Charles disease) ([facility]) Acid reflux controlled with med [...] file Not on file Not on file Last Filed Vital Signs Vital Sign Reading Time Taken Comments Blood Pressure 182/68 09/25/2020 9:56 AM INTERNAL SECURITY MANAGER Pulse 79 09/25/2020 9:56 AM INTERNAL SECURITY MANAGER Temperature 36.4 C (97.5 F) 09/25/2020 9:56 AM INTERNAL SECURITY MANAGER Respiratory Rate 18 09/25/2020 9:56 AM INTERNAL SECURITY MANAGER Oxygen Saturation 92% 09/25/2020 9:56 AM INTERNAL SECURITY MANAGER on 2 l iters Inhaled Oxygen Concentration - - Weight 69.4 kg (153 lb) 09/25/2020 9:56 AM INTERNAL SECURITY MANAGER Height 172.7 cm (5' 8") 09/25/2020 9:56 AM INTERNAL SECURITY MANAGER Body Mass Index 23.26 09/25/2020 9:56 AM INTERNAL SECURITY MANAGER Plan of Treatment Date Type Specialty Care Team Description 10/08/2021 Appointment Procedural Cardiology 10/08/2021 Appointment Procedural Cardiology 10/08/2021 Appointment Procedural Cardiology 10/08/2021 Office Visit Cardiovascular Jacqueline Guthrie MD [address] [place], [place] [address] [phone] Health Maintenance Due Date Last Done Comments COVID-19 VACCINE (1 of 2) 1957 SHINGLES VACCINES (#1) 1991 65+ PNEUMOCOCCAL VACCINE (1 of 1 - PPSV23) 2006 INFLUENZA VACCINE 05/12/2020 Implants Implanted Type Area Construction Carpenters Helper Device Shelf Model / Identifier Expiration Serial / Date Lot Graft Vasclr Propaten Thn-Wl Strtch 40cm 8mm - [id number] - [id number] Vascular Right: W L GORE 07/25/2022 [id number] / Implanted: Qty: 1 on 02/03/2019 by Jacqueline Elaine MD at [facility] Graft N/A [id number] / [id number] Patch Vasclr Perph 2x9cm Vascu-Guard - [id number] Vascular N/A: N/A CASTAÑEDA 03/02/2023 [id number] / Implanted: 02/03/2019 at [facility] (Quantity not on file) Graft BIOSCIENCE / [id number] Procedures Procedure Name Priority Date/Time Associated Comments Diagnosis US CAROTID DUPLEX Routine 09/25/2020 10:13 AM Bilateral caroti d Results for this BILATERAL INTERNAL SECURITY MANAGER artery stenosis procedure ar e in the results section. US DUPLEX ARTERIAL Routine 09/25/2020 10:13 AM PAD (peripheral Results for this LOWER EXTREMITY INTERNAL SECURITY MANAGER artery disease) procedure are in BILATERAL (HCC) the results section. US ANKLE BRACHIAL Routine 09/25/2020 8:32 AM PAD (peripheral Results for this INDEX INTERNAL SECURITY MANAGER artery disease) procedure ar e in ([facility]) the results section. CT ANGIOGRAM [...] in BILATERAL (HCC) the results section. US CAROTID DUPLEX Routine 03/14/2020 3:09 PM PAD (peripheral Results for this BILATERAL CDT artery disease) procedure ar e in ([facility]) the results Bilateral carotid section. artery stenosis after 10/27/2019 Results Us carotid duplex (09/25/2020 10:13 AM INTERNAL SECURITY MANAGER)Only the most recent of2 results within the time period is included. Specimen Narrative Performed At [facility] Carreon tid Duplex Report [address], [place] [address] For quality systems engineer purposes, the categorization of the degree of the stenosis of this exam is based on criteria described i n the IAC carotid stenosis grading white paper( www.intersocietal.org/Va scular) and in Carri Monreal., Kemal Velazquez., et al. Caroti d artery stenosis: arellano-scale and Doppler US diagnosis- -Society of Radiologists in Ultrasound Consensus Conference. Radio logy. 2002; 229(2):340-6. Pat.Name: JAE BENSON Pat.ID: [id number] .Date: 09/25/2020 Refer.MD: JACQUELINE GUTHRIE MD Exam Time: 8:10:00 AM Study Type:C arotid Age: 4 1940,80Y Sex: FEMALE Sonogrphr: Kiara NiceLOLA CPT - 4: 9388 0 Echo Event ID:[id number] Order ID: [id number] Reason for Study:Known carotid artery st enosis; [...] FINDINGS 1. <70% stenosis right bulb and internal security manager al carotid artery. 2. Right ECA is [...] Radiology Results In - 2019 10:37 AM INTERNAL SECURITY MANAGER [facility] Carotid Duplex R eport [address] [place], [place] [id number] For quality systems engineer purposes, the aneesh gorization of the degree of the stenosis of this exam is based on criteria described in the IAC carotid stenosis grading white paper( www.intersocietal.org/Vascular) and in Jolanta Monreal, Sherron Velazquez, et al. Clif d artery stenosis: arellano-scale and Doppler US diagnosis--Society of Radiologists in Ultrasound Consensus Conference. Radiology. 2003 Nov; 229(2):340-6. Pat.Name: JAE BENSON Maciej Boyce.I D: [id number] St.Date: 09/25/2020 Refer .MD: JACQUELINE GUTHRIE MD Exam Time: 8:10:00 AM Study Type:Carotid Age: 4 1940,80Y Sex: FEMALE Sonogrphr: Kiara Nice RVT CPT - 4: 33615 Echo Event ID:[id number] Order ID: [id number] Reason for Study:Known carotid artery st enosis; [...] City/State/ZIP Code Phon e Number [facility] [address] [place] [address] Us duplex arterial lower extremity (09/25/2020 10:13 AM INTERNAL SECURITY MANAGER)Only the most recent of2 resultswithin the time period is included. Specimen Narrative [facility] Lower Extremity Arterial Duplex Report [address] [facility] [address], [place] [id number] Pat.Name: JAE BENSON Pat.ID: [id number] .Date: 09/25/2020 Refer.MD: JACQUELINE GUTHRIE MD Exam Time: 8:47:00 AM Study Type:L E Arterial Age: 4 1940,80Y Sex: FEMALE Sonogrphr: Kiara KristenLOLA zamora CPT - 4: 9392 5 Echo Event ID:[id number] Order ID: [id number] Reason for Study:Follow up s/p bilateras l 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 The proximal and distal segments of the graft are tortuous. Turbulent flow is noted th roughout. PSV cm/s Inflow artery(Rt OCCUPATIONAL THERAPY TEACHER) 212 Proximal anastomosis 343 Proximal graft 184(tortuous) Mid graft 104 Distal graft 123(tortuous) Distal anastomosis 72 Outflow artery (Rt OCCUPATIONAL THERAPY TEACHER) 42 (turbulent) DUPLEX SCAN OBSERVATIONS: RIGHT: [facility]. The profunda femora l, superficial femoral and popliteal arteries demonstrate scattered calcified plaque throughout. The popliteal artery branches off in the mid segment. Difficulty identifying the tibioperoneal trunk. The posterior tibial, peroneal and anterior tibial arteries demonstrate concentric calcified arterial cooper. LEFT:Satisfactory appearance at the comm femoral artery endarterectomy site. The profunda femora [...] artery (ratio 1.3). FINDINGS: MEASUREMENTS: DOPPLER Left PUNCHBOARD ASSEMBLER Prox PUNCHBOARD ASSEMBLER Prox PSV 70 cm/s Right PUNCHBOARD ASSEMBLER Prox PUNCHBOARD ASSEMBLER Prox PSV 62 cm/s Left PUNCHBOARD ASSEMBLER Distal PUNCHBOARD ASSEMBLER Distal PSV 58 cm/s Right PUNCHBOARD ASSEMBLER Distal PUNCHBOARD ASSEMBLER Distal PSV 69 cm/s Left PUNCHBOARD ASSEMBLER Mid PUNCHBOARD ASSEMBLER Mid PSV 81 cm/s Right PUNCHBOARD ASSEMBLER Mid PUNCHBOARD ASSEMBLER Mid PSV 70 cm/s Left Peroneal Dist Peroneal Dist P 32 cm/s Right Peroneal Dist Peroneal Dist P 43 cm/s Left SFA Mid SFA Mid PSV 110 cm/s Right SFA Mid SFA Mid PSV 115 cm/s Left ED Prox ED Prox PSV 50 cm/s Right ED Prox ED Prox PSV 63 cm/s Left OCCUPATIONAL THERAPY TEACHER Prox OCCUPATIONAL THERAPY TEACHER Prox PSV 212 cm/s Left ED Mid [...] Mid Pop Mid PSV 53 cm/s Left OCCUPATIONAL THERAPY TEACHER Dist OCCUPATIONAL THERAPY TEACHER Dist PSV 172 cm/s Left Peroneal Mid [...] Left Profunda Profunda PSV 227 cm/s Right OCCUPATIONAL THERAPY TEACHER Dist 1 OCCUPATIONAL THERAPY TEACHER Dist 1 PSV 178 cm/s Right Profunda Profunda PSV 81 cm/s Right SFA Prox SFA Prox PSV 132 cm/s Signed 09/25/2020 12:24 PM Maycol Swartz MD, FACS, RPVI Procedure Note Interface, Radiology Results In - 2019 12:25 PM INTERNAL SECURITY MANAGER [facility] Lower Extremity Arterial Duplex Report [address] [address], [place] [address] Pat.Name: JAE BENSON Maciej Pat.I D: [id number] .Date: 09/25/2020 Refer .MD: JACQUELINE GUTHRIE MD Exam Time: 8:47:00 AM Study Type:LE Arterial Age: 4 1940,80Y Sex: FEMALE Sonogrphr: Kiara Nice RVT CPT - 4: 08172 Echo Event ID:[id number] Order ID: [id number] Reason for Study:Follow up s/p bilateras l 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 The proximal and distal segments of the graft are tortuous. Turbulent flow is noted th roughout. PSV cm/s Inflow artery(Rt OCCUPATIONAL THERAPY TEACHER) 2 12 Proximal anastomosis 3 43 Proximal graft 184(tortuous) Mid graft 104 Distal graft 123(tortuous) Distal anastomosis 72 Outflow artery (Rt OCCUPATIONAL THERAPY TEACHER) 42 (turbulent) DUPLEX SCAN OBSERVATIONS: RIGHT: Satisfactory [...] artery (ratio 1.3). FINDINGS: MEASUREMENTS: DOPPLER Left PUNCHBOARD ASSEMBLER Prox PUNCHBOARD ASSEMBLER Prox PSV 70 cm/s Right PUNCHBOARD ASSEMBLER Prox PUNCHBOARD ASSEMBLER Prox PSV 62 cm/s Left PUNCHBOARD ASSEMBLER Distal PUNCHBOARD ASSEMBLER Distal PSV 58 cm/s Right PUNCHBOARD ASSEMBLER Distal PUNCHBOARD ASSEMBLER Distal PSV 69 cm/s Left PUNCHBOARD ASSEMBLER Mid PUNCHBOARD ASSEMBLER Mid PSV 81 cm/s Right PUNCHBOARD ASSEMBLER Mid PUNCHBOARD ASSEMBLER Mid PSV 70 cm/s Left Peroneal Dist Peroneal Dist P 32 cm/s Right Peroneal Dist Peroneal Dist P 43 cm/s Left SFA Mid SFA Mid PSV 110 cm/s Right SFA Mid SFA Mid PSV 115 cm/s Left ED Prox ED Prox PSV 50 cm/s Right ED Prox ED Prox PSV 63 cm/s Left OCCUPATIONAL THERAPY TEACHER Prox OCCUPATIONAL THERAPY TEACHER Prox PSV 212 cm/s Left ED Mid [...] Mid Pop Mid PSV 53 cm/s Left OCCUPATIONAL THERAPY TEACHER Dist OCCUPATIONAL THERAPY TEACHER Dist PSV 172 cm/s Left Peroneal Mid [...] Left Profunda Profunda PSV 227 cm/s Right OCCUPATIONAL THERAPY TEACHER Dist 1 OCCUPATIONAL THERAPY TEACHER Dist 1 PSV 178 cm/s Right Profunda Profunda PSV 81 cm/s Right SFA Prox SFA Prox PSV 132 cm/s Signed 09/25/2020 12:24 PM Maycol Swartz MD, FACS, RPVI Performing Organization Address City/State/ZIP Code [facility] e Number [facility] [address] [place] [address] ankle brachial index (09/25/2020 8:32 AM INTERNAL SECURITY MANAGER) Specimen Narrative Performed At [facility] Lower Extremity Art erial Physiologic Report [address] [id number] Pat.Name: JAE BENSON Pat.ID: [id number] .Date: 09/25/2020 Refer.MD: JACQUELINE GUTHRIE MD Exam Time: 8:19:00 AM Study Type:P hysiologic Leg Age: 4 1940,80Y Sex: FEMALE Sonogrphr: Mamie Traore RVT CPT - 4: 9 3922 Echo Event ID:[id number] Order ID: [id number] Reason for Study:Surveillance status pos t fem-fem [...] PT 0.738 Signed 09/25/2020 10:28 AM Maycol Sawrtz MD, FACS, RPVI Procedure Note Interface, Radiology Results In - 2019 10:28 AM INTERNAL SECURITY MANAGER [facility] Lower Extremity Arterial P hysiologic Report [address] [place] [address] Pat.Name: JAE BENSON Pat.I D: [id number] .Date: 09/25/2020 Refer .MD: JACQUELINE GUTHRIE MD Exam Time: 8:19:00 AM Study Type:Physiologic Leg Age: 4 1940,80Y Sex: FEMALE Sonogrphr: Mamie Traore RVT CPT - 4: 37776 Echo Event ID:[id number] Order ID: [id number] Reason for Study:Surveillance status pos t fem-fem [...] PHYSICIAN INTERPRETATION: 1. Resting ankle brachial indices sugge st [...] FACS, RPVI Performing Organization Address City/State/ZIP Code [facility] e Number [facility] [address] [place] [address] CTA Neck W Wo Contrast (03/21/2020 11:23 [...] of enhancement. IMPRESSION: 3-D reconstructions are processed off- ne. Mild narrowing of the proximal right [...] artery or right ext racranial vertebral artery. [id number] Procedure Note Interface, Radiology Results Incoming - [...] subclavian artery or right extracranial vertebral artery. [id number] Performing Organization Address City/State/ZIP Code Phon e Number [facility] [address] [place] [address] Estimated GFR (03/21/2020 10:49 AM CDT) Estimated GFR 39 (A) mL/min/1.73 [place] [facility] Comment: m2 HOSPITAL Catergory Units Interpretation G1 [...] in 2014. Specimen Blood Performing Organization Address City/[facility] [place] Phon e Number [facility] DEPARTMENT OF PATHOLOGY AND [address] [place] [address] [phone] [address] POC creatinine (03/21/2020 10:49 AM CDT) POC creatinine 1.3 (H) 0.5 - 0.9 [facility] Comment: mg/dl HOSPITAL Meter ID: [id number] Operating Manager ID: Ana Maria Parsons Specimen Blood - Forearm, right Performing Organization Address [facility] [place] Phon e Number [facility] DEPARTMENT OF PATHOLOGY AND [address] [place] [address] [phone] [id number] after 10/27/2019 Advance Directives For more information, please contact: [phone] Type Date Recorded Patient Beater Tender Explanati on Advance Directives, Living Will and Medical Power of Commercial Baking Teacher
--- OUTSIDE RECORDS SUMMARY | 2020-10-27 23:55 | XMS REPORT | Continuity of Care Document ---
:1940 Author Organization [facility] t Address [address] [place] [address] [address]. [address] [place] [address] Care Team Providers Name Role Phone PHYSICIAN Primary Care Physician Unavailable Ty Guthrie MD Attending Clinician Homar TERRAZAS Attending Clinician Unavailable Koko Gomez MD Attending Clinician Deborah ROBERTSON Attending Clinician Unavailable Lu Virgen MA Attending Clinician Unavailable JO-ANN WARREN Attending Clinician Unavailable JO-ANN WARREN Admitting Clinician Unavailable Payers Payer Name Policy Type Policy Number Effective Date Expiration Date S susan AETNA [id number] 2013 [place] MEDICAREAETNA 00:00:00 Hinduism MEDICARE HMO/PPO [id number] 4-PresentO AETNA - MEDICARE [id number] [address] [facility] - [place] CAREAETNA 00:00:[address] MEDICARE HMO POS [id number] [address] Problems Condition Condition Condition Status Onset Resolution [...] - collapse collapse 00:00: Medica l 00 [place] Essential Essential Disease Active 2015-10 Ajit mcclellan hypertensi hypertensi -08 Me [facility] on on 00:00: st 00 PAD PAD Disease Active 2015-10 Last [place] (periphera (periphera 08 Assessmen Methodi l artery l artery 00:00: t & Plan: st disease) disease) 00 Improved symptoms. Continue medical optimizat ion and anti-coag ulation. Follow up in 6 months. CAD in CAD in Disease Active 2015-10 [place] [employer] 08 Methodi artery artery 00:00: st 00 [...] 00 s to drug Codeine Propensi Active [facility] ty to 4-01 reaction( Methodi adverse [...] Stop Date Source Natural father Heart disease [facility] Natural father Hypertension [facility] Natural father Heart disease [place] [facility] Natural mother Cancer [facility] Natural mother Cancer [facility] Natural brother Heart disease [place] [facility] Paternal grandfather Heart disease [place] [facility] Natural sister Cancer [place] [facility] Social History Social Habit Start Date Stop Date Quantity Comments Source Sex Assigned At [place] [facility] Cigarettes smoked 2020-09-25 2020-09-25 [place] current (pack per 00:00:00 00:00:[address] day) - Reported Cigarette 2020-09-25 2020-09-25 [place] pack-years 00:00:00 00:00:00 Hindu[facility] Tobacco use and 2020-09-25 2020-09-25 Never used [facility] exposure 00:00:00 00:00:00 Hindu[facility] Alcohol intake 2020-09-25 2020-09-25 Current drinker of Audie lott 00:00:00 00:00:00 alcohol (finding) Methodi st Alcohol Comment 2019-01-19 2019-01-19 ocasionally [place] 00:00:00 00:00:00 Hindu[facility] History of tobacco 2019-01-10 Current smoker [place] use 00:00:00 Hindu[facility] Smoking Status Start Date Stop Date Source Former smoker 2020-09-25 00:00:00 2020-09-25 00:00:00 [place] [facility] Current every day 2017-01-25 00:00:00 [facility] Medical smoker Center Medications Ordered [...] :00 DAILY hydrALAZINE 2019-10 Yes TAKE ONE [place] (APRESOLINE 0-19 TABLET BY Met hodi ) 25 MG 00:00: MOUTH st tablet 00 DAILY NEEDED (SYSTOLIC FOR BLOOD PRESSURE >160) metoprolol 2019- No 25mg QD Take 1 [place] tartrate 9-23 11-20 tablet (25 Meth adri (LOPRESSOR) 00:00: 00:00 mg total) st 25 mg 00 :00 by mouth tablet daily. pantoprazol 2019- No Chest pain, TAKE ONE [place] e 7-23 10-30 unspecified TABLET BY Me thodi (PROTONIX) 00:00: 00:[address] 40 MG EC 00 :00 DAILY tablet clopidogreL 2020- No TAKE ONE [place] (PLAVIX) 75 7-23 10-27 TABLET BY Me thodi mg tablet 00:00: 00:[address] 00 :00 DAILY fluticasone Yes Inhale. 1 [place] -umeclidin- 6-15 puff daily Me thodi vilanter 14:41: st (Trelegy 29 Ellipta) 100-62.5-25 mcg blister with device furosemide Yes 20mg Take 20 mg [place] (LASIX) 20 6-15 by mouth Metho di mg tablet 14:41: as needed. st 29 nicotine 2019-0 2020- No 1{patch Q24H Place 1 Audie [...] MOUTH st tablet 00 :00 DAILY clopidogreL 2019- No TAKE ONE [place] (PLAVIX) 75 [...] 00:[address] 07 :00 clopidogreL 2019- No TAKE ONE [place] (PLAVIX) 75 [...] MG 10:12: daily. st tablet 56 roflumilast Yes 500ug QD Take 500 [place] (DALIRESP) 8-21 mcg by Methodi 500 mcg 10:12: mouth st tablet 56 daily. zolpidem Yes 5mg QD Take 5 mg [place] (AMBIEN) 10 8-21 by mouth Meth adri mg tablet 10:12: nightly as st 56 needed for sleep. tiotropium 2018- Yes 2{puff} QD Inhale 2 [place] bromide 8-21 puffs Methodi (SPIRIVA 10:12: daily. st RESPIMAT 56 INHL) losartan Yes 50mg QD Take 50 mg Ajit ston (COZAAR) 50 8-21 by mouth Meth adri MG tablet 10:12: daily. st 56 pantoprazol 2019- No Chest pain, TAKE ONE [facility] e 6- unspecified TABLET BY [facility] a[facility] (PROTONIX) 00:00: 00:[address] 40 MG EC 00 :00 DAILY tablet spironolact Yes 50mg Q.5D Take 50 mg [place] one 3-09 by mouth 2 Methodi (ALDACTONE) 00:00: (two) st 25 MG 00 times a tablet day. metoprolol 2019- No 12.5mg Q.5D Take 0.5 [facility] tartrate 11-23- tablets Methodi (LOPRESSOR) 00:00: 00:00 (12.5 mg [...] 25mg Q24H Take 1 Ajit ston (APRESOLINE 2-06 10-19 tablet (25 M ethodi ) 25 [...] - 10 MG 11:49: daily. Medical tablet [address] [place] [address] citalopram Yes anxiety 40mg QD Take [address] (CELEXA) 40 4-17 with by mouth Luke s - MG tablet 11:49: depression daily. [address] clopidogrel Yes 75mg QD Take [address] (PLAVIX) 75 4-17 by mouth Luke s - mg tablet 11:49: [facility]. [facility] [address] aspirin 81 2017 Yes 81mg QD Take [address] MG EC 4-17 by mouth [facility] - tablet 11:49: daily. [address] furosemide Yes 20mg QD Take [address] (LASIX) 20 4-17 by mouth [facility] - MG tablet 11:49: [facility]. [facility] [address] anastrozole Yes 1mg QD Take [address] (ARIMIDEX) 4-17 by mouth [facility] - 1 mg tablet 11:49: daily. Medi shane 38 [place] alendronate Yes postmenopau 70mg Take 70 mg [...] 11:49: daily with M edical 38 dinner. [place] traMADol Yes pain 50mg Take [address] (ULTRAM) 50 4-17 by mouth Luke s - mg tablet 11:49: as needed Med ical 38 for Pain. [place] zolpidem Yes 10mg Take [address] (AMBIEN) 10 4-17 by mouth Luke s - mg tablet 11:49: every Medical 38 night as Center needed for Insomnia. cloNIDine Yes .1mg Take 0.[address] HCl 4-17 mg by [facility]ukes - (CATAPRES) 11:49: mouth as Med ical 0.1 MG 38 needed. [place] tablet predniSONE 2015-10 Yes 5mg QD Take [...] Systolic blood 2020-09-25 09:56:00 182 mm[Hg] Evangelist Asif pressure Diastolic blood 2020-09-25 09:56:00 68 mm[Hg] Christopher rocha Hinduism pressure Heart rate 2020-09-25 09:56:00 79 /min Robbie Asif Body temperature 2020-09-25 09:56:00 36.39 Nuria Roberto Asif Respiratory rate 2020-09-25 09:56:00 18 /min Roberto Asif Body height 2020-09-25 09:56:00 172.7 cm Robbie Asif Body weight 2020-09-25 09:56:00 69.4 kg Robbie Asif BMI 2020-09-25 09:56:00 23.26 kg/m2 Robbie Asif Oxygen saturation 2020-09-25 09:56:00 92 /min on 2 liters Ajit ston Hinduism in Arterial blood by Pulse oximetry Procedures Procedure Date / Time Performed Performing Clinician [facility] e US CAROTID DUPLEX 2020-09-25 10:13:29 Jacqueline Guthrie BILATERAL Ty US DUPLEX ARTERIAL 2020-09-25 10:13:14 Jacqueline Guthrie LOWER EXTREMITY Ty BILATERAL US ANKLE BRACHIAL 2020-09-25 08:32:22 Jacqueline Guthrie INDEX Ty SARS-COV2/RT-PCR ([facility] 2020-05-15 05:05:00 [facility] Medical [place] CT ANGIOGRAM NECK W WO 2020-03-21 11:23:49 [place], Char[place] [facility] CONTRAST Ty POC CREATININE 2020-03-21 10:49:00 Karla Vazquez Meth odist ESTIMATED GFR 2020-03-21 10:49:00 Karla Vazquez Meth odist US DUPLEX ARTERIAL 2020-03-14 15:10:09 Jacqueline Guthrie Robertoto ebony Hinduism LOWER EXTREMITY Ty BILATERAL US CAROTID DUPLEX 2020-03-14 15:09:56 NayjoyMarlynvirginiaissa [facility] [facility] BILATERAL Ty Plan of Care Planned Activity Planned Date Details Comments Source Future Scheduled 2020-05-12 INFLUENZA VACCINE [place] [facility] Test 00:00:00 [code = INFLUENZA VACCINE] Future Scheduled 2006 65+ PNEUMOCOCCAL [facility] Test 00:00:00 VACCINE (1 of 1 - PPSV23) [code = 65+ PNEUMOCOCCAL VACCINE (1 of 1 - PPSV23)] Future Scheduled 1991 SHINGLES VACCINES (#1) [place] [facility] Test 00:00:00 [code = SHINGLES VACCINES (#1)] Future Scheduled 1957 COVID-19 VACCINE (1 of [place] [facility] Test 00:00:00 2) [code = COVID-19 VACCINE (1 of 2)] Encounters Start End Encounter Admission Attending Care Care Encounter Source Date/Time Date/Time Type Type Clinicians Facility Department ID 2020-09-25 2020-09-25 Outpatient [facility] [id number] [place] 00:00:00 00:00:00 [place]UD[place] [address] 2020-09-25 2020-09-25 Outpatient [facility] [id number] [address] [place] [address] 00:00:00 00:00:00 [place]UD[place] [address] 2020-09-25 2020-09-25 Outpatient [facility] [id number] [address] [place] [address] 00:00:00 00:00:00 CHARUDATTA [address] 2020-09-25 2020-09-25 Outpatient [facility] [id number] [address] [place] [address] 00:00:00 00:00:00 [place]UD[place] [address] 2020-03-28 2020-03-28 Outpatient [facility] [id number] [place] 00:00:00 00:00:00 [place]UD[place] [address] 2020-03-21 2020-03-21 Outpatient BAVARE, [facility] [id number] [place] 00:00:00 00:00:[address] [facility] 2020-03-14 2020-03-14 Outpatient BAVARE, [facility] [id number] [place] 00:00:00 00:00:[address] [facility] 2020-03-14 2020-03-14 Outpatient BAVARE, [facility] [id number] [place] 00:00:00 00:00:00 [place] [address] [facility] 2019-12-13 2019-12-13 Outpatient GOMEZ, [facility] [id number] [place] 00:00:00 00:00:00 MARY [address] Results Test Description Test Time Test Comments Results Result Comments Source SARS-CoV2/RT-PCR ([facility] Ref [facility]) 2020-05-15 15:57:00 Test Item Value Reference Range Interpretation Comme nts SARS-COV2/RT-PCR (test code = Negative Not Detected, 15481-3) Negative, See external report for linked test SARS-COV-[address] [facility] (test code = 50928-5) KAI (test code = KAI) Negative results [...] of the Act. Fact Sheet for Healthcare Providers:https://www.[employer]/Documents/Xpert%20Xpress %20SARS%20CoV-2/Fact%20Sheets /302-3802%02EVNC-YSK-1%20HEAL THCARE%20PROVIDERS%20FACT%20S HEET.pdf Fact Sheet for Healthcare Patients:https://www.[employer]/Documents/Xpert%20Xpress% 20SARS%20CoV-2/Fact%20Sheets/ 302-3801%57DHQU-BGZ-6%20PATIE NT%20FACT%20SHEET.pdf Performing Laboratory:[facility] [place] [address] [facility])2020-05-15 15:57:00 Test Item Value Reference Range Interpretation Comments SARS-COV2/RT-PCR (test code Negative Not Detected, Negative, = 1671867) See external report for linked test SARS-COV-[address] [facility] (test code = 2736851) Negative results do not preclude SARS-CoV-2 infection [...] of the Act.Fact Sheet for Healthcare Pro viders:https://www.[employer]/Documents/Xpert%20Xpress%20SARS%20CoV-2/Fact%20Sh eets/302-3802%85CDXR-HLN-5%20HEALTHCARE%20PROVIDERS%20FACT%20SHEET.pdfFact Sheet for Healthcare Patients:https://www.[employer].com/Documents/Xpert%20Xpress%20SARS%20CoV-2/Fact%20Sheets/302-3801%20SARS-COV -2%20PATIENT%20FACT%20SHEET.pdfPerforming Laboratory:[facility] [place], [place] [address]brid[address].[place], [place] [id number] 09:13:00 Test Item Value Reference Range Interpretation Comments HEMOGLOBIN A1C (BEAKER) (test code = 5.6 % 4.3-6.1 368) VITAMIN [id number] 07:58:00 Test Item Value Reference Range Interpretation Comments VITAMIN B12 (BEAKER) (test code = 317 pg/mL 213-816 774) TSH/FREE T4 IF [id number] 07:51:00 Test Item Value Reference Range Interpretation Comments THYROID STIMULATING HORMONE 1.65 uIU/mL 0.35-4.94 (BEAKER) (test code = 772) [id number] 07:37:00 Test Item Value Reference Range Interpretation Comments MAGNESIUM (BEAKER) (test code = 2.0 mg/dL 1.6-2.6 627) BASIC METABOLIC [id number] 07:37:00 Test Item Value Reference Range Interpretation [...] NOT APPLICABLE FOR DIALYSIS PATIEN TS. LIPID [id number] 07:37:00 Test Item Value Reference Range Interpretation [...] 130-159 High 160-189 Very High >=190HEPATIC FUNCTION [id number] 07:37:00 Test Item Value Reference Range Interpretation [...] 6-55 347) CBC W/PLT COUNT & AUTO [id number] 07:33:00 Test Item Value Reference Range Interpretation [...] K/ L 0.00-0.20 (test code = 417) 0.00PT/[id number] 07:04:00 Test Item Value Reference Range Interpretation [...] 2.5-3.5 for patients with mechanical heart valves.PROTHROMBIN TIME/[id number] 07:03:00 Test Item Value Reference Range Interpretation [...]
--- OUTSIDE RECORDS SUMMARY | 2020-10-27 23:55 | XMS REPORT | Clinical Summary ---
:1940 Author Organization [facility] Address [address] [place] [address] Care Team Providers Name Role Phone Yunior [...] Team Description 05/15/2020 Lab Requisition Lab after 10/27/2019 Family History Medical History Relation Name Comments [...] procedure are in the results section. after 10/27/2019 Results SARS-CoV2/RT-PCR ([facility] Ref [facility]) (05/15/2020 5:05 AM CDT) SARS-COV2/RT-PCR Negative Not Detected, [facility] Negative, See [facility] external report CENTER for linked test SARS-COV-2 [facility] PERFORMING LAB [facility] Specimen Other - Nasopharyngeal wall structure (b juan structure) Narrative Performed At Negative results do not preclude SARS-CoV-2 [facility] infection and should not be used as [...] the Act. Fact Sheet for Healthcare Providers: https://www.[employer]/Documents/Xpert%20Xpre ss%20SARS%20CoV-2/Fact%20Sheets/3023802%20SAR S-COV-2%20HEALTHCARE%20PROVIDERS%20FACT%20SHEE T.pdf Fact Sheet for Healthcare Patients: https://www.[employer]/Documents/Xpert%20Xpre ss%20SARS%20CoV-2/Fact%20Sheets/3023801%20SAR S-COV-2%20PATIENT%20FACT%20SHEET.pdf Performing Laboratory: [address] [place] [address] Performing Organization Address City/State/[place] [address] CENTER after 10/27/2019 Insurance Payer Benefit Plan / Subscriber ID Effective Dates Phone Addre ss Type Group AETNA - AETNA MEDICARE [id number] 2016-Oneil [phone] [address] MEDICARE MGD HMO POS PPO t 2 [id number] [place] [address] Advance Directives For more information, please contact: [phone] Code Status Date Activated Date Inactivated Comments Full Code 01/25/2017 1:46 AM 01/26/2017 1:49 PM This code status was determined by: Patient
[2020-10-28 00:38] LABS: Arterial Blood Carboxyhemoglob 1.1 % (0-1.5); Blood Gas Oxyhemoglobin 80.7 % (94-97); Blood O2 Saturation 82.6 % (92-98.5)
[2020-10-28] MEDS ORDERED: METHYLPREDNISOLONE 125 MG INJ ONE (00:40)
[2020-10-28] MEDS ORDERED: ALBUTEROL 2.5 MG/3 ML NEB SOL ONE (00:40)
[2020-10-28] MEDS ORDERED: IPRATROPIUM BROM 0.5MG/2.5ML ONE (00:40)
[2020-10-28 01:06] LABS: Protime INR 1.16
[2020-10-28 01:07] LABS: Basophils % 0.6 % (0-1.3); Hematocrit 29.7 % (36.0-45.0); Lymphocytes % 11.3 % (15.3-44.8); MPV 9.6 fL (7.6-11.3); RBC Red Blood Cell Count 3.22 M/uL (3.86-4.86)
[2020-10-28 01:18] LABS: ALT/SGPT 19 U/L (12-78); AST/SGOT 14 U/L (15-37); Albumin 2.9 g/dL (3.4-5.0); Alkaline Phosphatase 60 U/L (45-117); BUN Blood Urea Nitrogen 46 mg/dL (7-18); Bicarbonate 32 mmol/L (21-32); Bilirubin Direct < 0.1 mg/dL (0-0.2); Bilirubin Total 0.3 mg/dL (0.2-1.0); Glucose Level 97 mg/dL (74-106); Magnesium 2.3 mg/dL (1.8-2.4); NT PRO-BNP 11303 pg/mL (<450); Potassium 3.4 mmol/L (3.5-5.1); Protein, Total 5.8 g/dL (6.4-8.2); Sodium Level 141 mmol/L (136-145); Troponin (Emerg Dept Use Only) 0.02 ng/mL (0.0-0.045)
[2020-10-28 03:38] LABS: SARS-COV-2 RT PCR NEGATIVE (NEGATIVE)
--- NOTE | 2020-10-28 03:53 | EDPHYS ---
Physician Documentation [facility] Name: Michelle Benson Age: 80 yrs Sex: Female : 1940 Arrival Date: 10/27/2020 Time: 23:56 Bed 7 Private MD: ED Physician Doc Patel HPI: 10/28 00:36 This 80 yrs old Female presents to ER via EMS with complaints of Shortness of mh7 Breath. 00:36 The patient has shortness of breath at rest. mh7 00:37 Onset: The symptoms/episode began/occurred today. Duration: The symptoms are mh7 continuous, and are unchanged since they started. The patient's shortness of breath is aggravated by nothing, is alleviated by nothing. Associated signs and symptoms: Pertinent positives: Wheezing, Pertinent negatives: chest pain, non-productive cough, productive cough, diaphoresis, dizziness, fever, hemoptysis, loss of consciousness, nausea, numbness in extremities, visual changes, vomiting. Severity of symptoms: At their worst the symptoms were moderate today, in the emergency department the symptoms are unchanged. The patient has experienced similar episodes in the past, multiple times. Historical: - Allergies: 00:10 Codeine; mg2 00:10 perindopril erbumine; mg2 - Home Meds: 00:55 levothyroxine 100 mcg tab 1 tab once daily [Active]; Crestor 10 mg Oral tab 1 tab once rr5 daily [Active]; citalopram 40 mg tab 1 tab once daily [Active]; Eliquis 2.5 mg oral tab 1 tab 2 times per day [Active]; nifedipine 90 mg Oral tr24 1 tab once daily [Active]; hydralazine 50 mg oral tab 1 tab 3x /day [Active]; clopidogrel 75 mg Oral tab 1 tab once daily [Active]; Lyrica 75 mg Oral 1 cap daily [Active]; bupropion HCl 100 mg Oral tab 1 tab 2 times per day [Active]; Daliresp 500 mcg Oral tab 1 tab once daily [Active]; prednisone 5 mg Oral tab once daily [Active]; sotalol 80 mg Oral tab 1 tab 2 times per day [Active]; aspirin 81 mg Oral TbEC 1 tab once daily [Active]; pantoprazole 40 mg Oral TbEC 1 tab once daily [Active]; Lasix 40 mg Oral tab 1 tab prn [Active]; nitroglycerin 0.4 mg/hr Topical pt24 1 patch once daily [Active]; trelegy [Active]; - Immunization history:: Flu vaccine status is unknown. - Social history:: Smoking status: unknown. ROS: 00:37 Constitutional: Negative for fever, chills, and weight loss, Eyes: Negative for injury, mh7 pain, redness, and discharge, ENT: Negative for injury, pain, and discharge, Neck: Negative for injury, pain, and swelling, Cardiovascular: Negative for chest pain, palpitations, and edema, Abdomen/GI: Negative for abdominal pain, nausea, vomiting, diarrhea, and constipation, Back: Negative for injury and pain, : Negative for injury, bleeding, discharge, and swelling, MS/Extremity: Negative for injury and deformity, Skin: Negative for injury, rash, and discoloration, Neuro: Negative for headache, weakness, numbness, tingling, and seizure, Psych: Negative for depression, anxiety, suicide ideation, homicidal ideation, and hallucinations, Allergy/Immunology: Negative for hives, rash, and allergies, Endocrine: Negative for neck swelling, polydipsia, polyuria, polyphagia, and marked weight changes, Hematologic/Lymphatic: Negative for swollen nodes, abnormal bleeding, and unusual bruising. Exam: 00:37 Head/Face: Normocephalic, atraumatic. Eyes: Pupils equal round and reactive to light, mh7 extra-ocular motions intact. Lids and lashes normal. Conjunctiva and sclera are non-icteric and not injected. Cornea within normal limits. Periorbital areas with no swelling, redness, or edema. Neck: Trachea midline, no thyromegaly or masses palpated, and no cervical lymphadenopathy. Supple, full range of motion without nuchal rigidity, or vertebral point tenderness. No Meningismus. Chest/axilla: Normal chest wall appearance and motion. Nontender with no deformity. No lesions are appreciated. Cardiovascular: Regular rate and rhythm with a normal S1 and S2. No gallops, murmurs, or rubs. Normal PMI, no JVD. No pulse deficits. 00:37 Abdomen/GI: Soft, non-tender, with normal bowel sounds. No distension or tympany. No guarding or rebound. No evidence of tenderness throughout. Back: No spinal tenderness. No costovertebral tenderness. Full range of motion. Skin: Warm, dry with normal turgor. Normal color with no rashes, no lesions, and no evidence of cellulitis. MS/ Extremity: Pulses equal, no cyanosis. Neurovascular intact. Full, normal range of motion. Neuro: Awake and alert, GCS 15, oriented to person, place, time, and situation. Cranial nerves II-XII grossly intact. Motor strength 5/5 in all extremities. Sensory grossly intact. Cerebellar exam normal. Normal gait. Psych: Awake, alert, with orientation to person, place and time. Behavior, mood, and affect are within normal limits. 00:37 Constitutional: The patient appears alert, awake, uncomfortable. 00:37 Respiratory: mild respiratory distress is noted, Respirations: prolonged exhalation, that is mild, tachypnea, that is mild, Breath sounds: rhonchi, that are moderate, are scattered, Respiratory rate: 28 Vital Signs: 10/27 23:57 BP 115 / 49; Pulse 66; Resp 28; Temp 98.3; Pulse Ox 97% on BiPAP; mg2 10/28 00:48 BP 122 / 55; Pulse 66; Resp 26; Pulse Ox 98% on 50% BiPAP; rr5 01:22 BP 123 / 60; Pulse 65; Resp 23; Pulse Ox 96% on 50% BiPAP; mg2 03:45 BP 137 / 58; Pulse 70; Resp 18; Pulse Ox 96% on 50% BiPAP; mg2 04:20 BP 123 / 55; Pulse 72; Resp 19; Pulse Ox 96% on 50% BiPAP; mg2 MDM: 03:50 Differential diagnosis: Anemia Anxiety Reaction asthma, Bronchitis CHF exacerbation, mh7 Chronic Obstructive Pulmonary Disease Myocardial Infarction pneumonia, pulmonary edema, reactive airway disease. Data reviewed: vital signs, nurses notes, old medical records, lab test result(s), cardiac enzymes, CBC, electrolytes, urinalysis, EKG, radiologic studies, plain films. Data interpreted: Pulse oximetry: on BiPAP is 96 %. Interpretation: acceptable. Counseling: I had a detailed discussion with the patient and/or guardian regarding: the historical points, exam findings, and any diagnostic results supporting the discharge/admit diagnosis, the presence of at least one elevated blood pressure reading (>120/80) during this emergency department visit, lab results, radiology results, the need for further work-up and treatment in the hospital. Response to treatment: the patient's symptoms have mildly improved after treatment. 03:52 Patient medically screened. 10/28 00:19 Order name: Basic Metabolic Panel; Complete Time: 02:18 10/28 00:19 Order name: CBC with Diff; Complete Time: 02:18 10/28 00:19 Order name: LFT's; Complete Time: 02:18 10/28 00:19 Order name: Magnesium; Complete Time: 02:18 10/28 00:19 Order name: NT PRO-BNP; Complete Time: 02:18 10/28 00:19 Order name: PT-INR; Complete Time: 02:18 10/28 00:19 Order name: Troponin (emerg Dept Use Only); Complete Time: 02:18 10/28 00:21 Order name: Arterial Blood Gas; Complete Time: 02:18 [facility] 10/28 03:38 Order name: COVID-19/FLU A+B; Complete Time: 03:50 [facility] 10/28 04:29 Order name: CBC with Automated Diff [facility] 10/28 04:29 Order name: CBC with Automated Diff [facility] 10/28 04:29 Order name: Comprehensive Metabolic Panel [facility] 10/28 00:19 Order name: XRAY Chest (1 view) [facility] 10/28 00:19 Order name: EKG; Complete Time: 00:21 10/28 00:19 Order name: Cardiac monitoring; Complete Time: 00:43 10/28 00:19 Order name: EKG - Nurse/Tech; Complete Time: 00:43 10/28 00:19 Order name: IV Saline Lock; Complete Time: 00:43 10/28 00:19 Order name: Labs collected and sent; Complete Time: 00:43 10/28 00:19 Order name: O2 Per Protocol; Complete Time: 00:43 10/28 00:19 Order name: O2 Sat Monitoring; Complete Time: 00:43 10/28 04:29 Order name: CONS Pharmacy Consult [facility] 10/28 04:29 Order name: CONS Physician Consult [facility] 10/28 04:29 Order name: Heart Healthy [facility] 10/28 04:29 Order name: Comprehensive Metabolic Panel EDMS Administered Medications: 00:43 Drug: SOLU-Medrol 125 mg Route: IVP; Site: right forearm; mg2 04:01 Follow up: Response: No adverse reaction mg2 00:43 Drug: Albuterol - atroVENT (3:1) (2.5 mg - 0.5 mg) 3 ml Route: Nebulizer; mg2 01:30 Follow up: Response: No adverse reaction mg2 Disposition: 10/28/20 03:52 Hospitalization ordered by Darius Leonardo for Observation. Preliminary diagnosis is COPD Exacerbation. - Bed requested for Telemetry/MedSurg (Inpatient). - Status is Observation. mg2 - Condition is Stable. - Problem is an acute exacerbation. - Symptoms have improved. Signatures: Dispatcher [employer] EDMS Precious Gacria RN RN mw Derrek Beasley RN RN mg2 Isaiah Singleton RN RN rr5 Doc Patel MD MD mh7 Corrections: (The following items were deleted from the chart) 02:12 00:20 CORONAVIRUS+MR.LAB.BRZ ordered. EDMS EDMS 02:13 00:20 Influenza Screen (A \T\ B)+BA.LAB.BRZ ordered. EDKY EDMS 03:55 03:52 Hospitalization Ordered by Darius Leonardo MD for Observation. Preliminary mw diagnosis is COPD Exacerbation. Bed requested for Telemetry/MedSurg (observation). Status is Observation. Condition is Stable. Problem is an acute exacerbation. Symptoms have improved. mh7 04:32 03:55 10/28/2020 03:52 Hospitalization Ordered by Darius Leonardo MD for Observation. mw Preliminary diagnosis is COPD Exacerbation. Bed requested for [facility] ER HOLD. Status is Observation. Condition is Stable. Problem is an acute exacerbation. Symptoms have improved. mw 04:57 04:32 10/28/2020 03:52 Hospitalization Ordered by Darius Leonardo MD for Observation. mg2 Preliminary diagnosis is COPD Exacerbation. Bed requested for Telemetry/MedSurg (Inpatient). Status is Observation. Condition is Stable. Problem is an acute exacerbation. Symptoms have improved. mw
--- NOTE | 2020-10-28 03:53 | ER ---
Nurse's Notes [facility] Name: Michelle Benson Age: 80 yrs Sex: Female : 1940 Arrival Date: 10/27/2020 Time: 23:56 Bed 7 Private MD: Diagnosis: COPD Exacerbation Presentation: 10/27 23:57 Chief complaint: EMS states: from home, low saturation about 70-80 percent ,difficulty mg2 breathing. BIPAP attached to the patient and sats went up to 99 percent with 100 percent FIO2. denies fever, was here 2 weeks ago and was intubated. Coronavirus screen: Client denies travel out of the [place] in the last 14 days. Client presents with at least one sign or symptom that may indicate coronavirus-19. Standard/surgical mask placed on the client. Provider contacted for isolation considerations. Ebola Screen: No symptoms or risks identified at this time. Initial Sepsis Screen: Does the patient meet any 2 criteria? No. Patient's initial sepsis screen is negative. Does the patient have a suspected source of infection? No. Patient's initial sepsis screen is negative. Risk Assessment: Do you want to hurt yourself or someone else? Patient reports no desire to harm self or others. Onset of symptoms was October 27, 2020. 23:57 Method Of Arrival: EMS: [facility] mg2 23:57 Acuity: RHIANNON 2 mg2 Historical: - Allergies: 10/28 00:10 Codeine; mg2 00:10 perindopril erbumine; mg2 - Home Meds: 00:55 levothyroxine 100 mcg tab 1 tab once daily [Active]; Crestor 10 mg Oral tab 1 tab once rr5 daily [Active]; citalopram 40 mg tab 1 tab once daily [Active]; Eliquis 2.5 mg oral tab 1 tab 2 times per day [Active]; nifedipine 90 mg Oral tr24 1 tab once daily [Active]; hydralazine 50 mg oral tab 1 tab 3x /day [Active]; clopidogrel 75 mg Oral tab 1 tab once daily [Active]; Lyrica 75 mg Oral 1 cap daily [Active]; bupropion HCl 100 mg Oral tab 1 tab 2 times per day [Active]; Daliresp 500 mcg Oral tab 1 tab once daily [Active]; prednisone 5 mg Oral tab once daily [Active]; sotalol 80 mg Oral tab 1 tab 2 times per day [Active]; aspirin 81 mg Oral TbEC 1 tab once daily [Active]; pantoprazole 40 mg Oral TbEC 1 tab once daily [Active]; Lasix 40 mg Oral tab 1 tab prn [Active]; nitroglycerin 0.4 mg/hr Topical pt24 1 patch once daily [Active]; trelegy [Active]; - Immunization history:: Flu vaccine status is unknown. - Social history:: Smoking status: unknown. Screenin:44 Abuse screen: Denies threats or abuse. Denies injuries from another. Nutritional mg2 screening: No deficits noted. Tuberculosis screening: No symptoms or risk factors identified. Fall Risk IV access (20 points). Assessment: 00:44 General: Appears in no apparent distress. comfortable, Behavior is calm, cooperative. mg2 Pain: Denies pain. Neuro: Level of Consciousness is awake, alert, obeys commands, Oriented to person, place, situation. Cardiovascular: Capillary refill < 3 seconds Patient's skin is warm and dry. Respiratory: Airway is patent Respiratory effort is even, Respiratory pattern is regular, symmetrical, tachypnea. Respiratory: Reports shortness of breath. GI: No signs and/or symptoms were reported involving the gastrointestinal system. : No signs and/or symptoms were reported regarding the genitourinary system. EENT: No signs and/or symptoms were reported regarding the EENT system. Derm: Skin is intact, is healthy with good turgor, Skin is pink, warm \T\ dry. normal. Musculoskeletal: Circulation, motion, and sensation intact. Capillary refill < 3 seconds. 00:45 Reassessment: on BIPAP, ABG done by RT. mg2 03:45 Reassessment: Patient appears in no apparent distress at this time. Patient is alert, rr5 oriented x 3, equal unlabored respirations, skin warm/dry/pink. resting eyes closed breathing spontaneously with BIPAP support. 04:20 Reassessment: seen by Dr Leonardo-hospitalist and informed about the plan for admission. mg2 04:35 Reassessment: report given to AILYN Hampton. mg2 04:57 Reassessment: patient sent to the floor with RT. mg2 Vital Signs: 10/27 23:57 BP 115 / 49; Pulse 66; Resp 28; Temp 98.3; Pulse Ox 97% on BiPAP; mg2 10/28 00:48 BP 122 / 55; Pulse 66; Resp 26; Pulse Ox 98% on 50% BiPAP; rr5 01:22 BP 123 / 60; Pulse 65; Resp 23; Pulse Ox 96% on 50% BiPAP; mg2 03:45 BP 137 / 58; Pulse 70; Resp 18; Pulse Ox 96% on 50% BiPAP; mg2 04:20 BP 123 / 55; Pulse 72; Resp 19; Pulse Ox 96% on 50% BiPAP; mg2 ED Course: 10/27 23:56 Patient arrived in ED. mg2 23:59 Doc Patel MD is Attending Physician. mh7 10/28 00:09 Triage completed. mg2 00:09 Arm band placed on. mg2 00:22 Derrek Beasley RN is Primary Nurse. mg2 00:35 Inserted saline lock: 20 gauge in right forearm, using aseptic technique. Blood mg2 collected. by BRANDON Hanley. 00:43 No provider procedures requiring assistance completed. mg2 00:45 Patient has correct armband on for positive identification. surveillance monitor on. Pulse mg2 ox on. NIBP on. Door closed. Warm blanket given. 00:48 EKG done, by ED staff, reviewed by Doc Patel MD. rr5 01:04 XRAY Chest (1 view) In Process Unspecified. EDMS 03:52 Darius Leonardo MD is Hospitalizing Provider. mh7 04:23 Patient admitted, IV remains in place. mg2 Administered Medications: 00:43 Drug: SOLU-Medrol 125 mg Route: IVP; Site: right forearm; mg2 04:01 Follow up: Response: No adverse reaction mg2 00:43 Drug: Albuterol - atroVENT (3:1) (2.5 mg - 0.5 mg) 3 ml Route: Nebulizer; mg2 01:30 Follow up: Response: No adverse reaction mg2 Outcome: 03:52 Decision to Hospitalize by Provider. mh7 04:22 Admitted to ER Hold. Please see [facility] for further documentation. mg2 04:22 Condition: stable 04:22 Instructed on the need for admit, Demonstrated understanding of instructions. 04:57 Patient left the ED. mg2 Signatures: Dispatcher [employer] EDMS Derrek Beasley RN RN mg2 Isaiah Singleton RN RN rr5 Doc Patel MD MD 7 Corrections: (The following items were deleted from the chart) 00:09 10/27 23:57 Acuity: RHIANNON 1 mg2 mg2
[2020-10-28] MEDS ORDERED: ALBUTEROL 2.5 MG/3 ML NEB SOL NEB PRN (04:25)
[2020-10-28] MEDS ORDERED: MORPHINE 2 MG/ML SYR IV PRN (04:25)
[2020-10-28] MEDS ORDERED: ONDANSETRON 4 MG/2 ML VIAL IV PRN (04:25)
--- NOTE | 2020-10-28 04:26 | P.HP ---
Certification for Inpatient Patient admitted to: Inpatient With expected LOS: >2 Midnights Practitioner: I am a practitioner with admitting privileges, knowledge of patient current condition, hospital course, and medical plan of care. Services: Services provided to patient in accordance with Admission requirements found in Title 42 Section 412.3 of the Code of Federal Regulations Patient History Date of Service: 10/28/20 Reason for admission: Shortness of breath History of Present Illness: 80 yrs old Female with past medical history of COPD , CHF, peripheral disease, hypertension, hyperlipidemia, obstructive sleep apnea, Neuropathy, hypothyroidism came to ER with worsening of shortness of breath which started today insidiously. Patient denies any fever or chills. Denies any chest pain. Associated cough with mucoid expectoration. Seems like one of her COPD exacerbation episodes. As the patient experienced shortness of breath which progressively worsened throughout the day and was brought to ER and she was found to be hypoxic and had to be placed on BiPAP. In the ER at the time of interview patient is comfortably lying down with a BiPAP Allergies codeine Allergy (Verified 01/10/18 02:21) Unknown perindopril erbumine [From Aceon] Allergy (Verified 01/10/18 02:21) UNKNOWN Home medications list reviewed: Yes Home Medications: Albuterol Inhaler [Ventolin Inhaler*] 2 puff IH Q4H PRN 09/03/18 Buproprion S.r. [Wellbutrin Sr*] 100 mg PO BID 09/03/18 Citalopram [Celexa*] 40 mg PO DAILY 09/03/18 Ipratropium/Albuterol Sulfate [Iprat-Albut 0.5-3(2.5) mg/3 ml] 3 ml PO QID PRN 09/03/18 Levothyroxine [Synthroid*] 100 mcg PO [id number] 09/03/18 Pantoprazole Sodium [Protonix] 40 mg PO DAILY 09/03/18 Pregabalin [Lyrica*] 75 mg PO BEDTIME 09/03/18 Roflumilast [Daliresp*] 500 mcg PO DAILY 09/03/18 Rosuvastatin [Crestor*] 10 mg PO BEDTIME 09/03/18 Spironolactone [Aldactone] 50 mg PO BID PRN 09/03/18 Zolpidem Tartrate [Ambien*] 5 mg PO BEDTIME PRN 09/03/18 Aspirin Chewable [Aspirin Chewable*] 81 mg PO DAILY 05/15/20 predniSONE [Deltasone] 5 mg PO DAILY 05/15/20 Albuterol Sulfate [Ventolin Hfa] 2 inhaler IH Q4HR 10/10/20 Arformoterol Tartrate [Brovana] 2 ml IH BID 10/10/20 Clopidogrel Bisulfate [Plavix] 75 mg PO DAILY 10/10/20 Potassium Chloride 20 meq PO DAILY 10/10/20 Tiotropium [place] [Spiriva Respimat] 4 gm IH DAILY 10/10/20 Amox/Clavulanate [Augmentin 875-125 Tab] 875 mg PO BID 10 Days #20 tab 10/18/20 Apixaban [Eliquis] 2.5 mg PO BID 30 Days #60 tablet 10/18/20 Furosemide [Lasix] 40 mg PO DAILY 30 Days #30 tab 10/18/20 Hydralazine HCl [Apresoline] 50 mg PO TID 30 Days #90 tablet 10/18/20 NIFEdipine [Nifedipine ER] 90 mg PO DAILY 30 Days #30 tab.er.24 10/18/20 Nitroglycerin Patch [Transderm-Nitro 0.4MG/Hr Patch*] 1 each TD DAILY 30 Days #30 patch.td24 10/18/20 Sotalol HCl [Betapace] 80 mg PO BID 30 Days #60 tab 10/18/20 - Past Medical/Surgical History Diabetic: No Past Medical History: Reviewed- Non-Contributory -: History of breast cancer -: History of throat cancer -: Hypertension -: Hypothyroidism -: COPD, steroid and oxygen-dependent -: Peripheral vascular disease -: Carotid arterial disease -: CHF -: Hyperlipidemia -: Obstructive sleep apnea -: Neuropathy -: Tobacco abuse Past Surgical History: Reviewed- Non-Contributory -: Hysterectomy -: Hemorrhoidectomy -: Radiation to the vocal cords -: Stents to the lower extremity and carotid -: Bilateral eye surgery -: Left-sided mastectomy -: chemotherapy Psychosocial/ Personal History: Patient is . She has children. She does not work. - Family History Father -: Heart disease Mother -: Cancer Sister -: Cancer Notes: Brother -: Heart disease Notes: - Social History Smoking Status: Former smoker Alcohol use: No CD- Drugs: No Caffeine use: No Review of Systems 10-point ROS is otherwise unremarkable Physical Examination - Vital Signs Temperature: 98.8 F Blood Pressure: 128/74 Pulse: 82 Respirations: 20 - Physical Exam General: Alert, Mild distress HEENT: Atraumatic, Normocephalic Neck: Supple, 2+ carotid pulse no bruit Respiratory: Diminished, Crackles/rales, Expiratory wheezes Cardiovascular: Regular rate/rhythm, Normal S1 S2 Capillary refill: <2 Seconds Gastrointestinal: Soft and benign, W/out hepatosplenomegaly Musculoskeletal: No clubbing, No swelling Integumentary: No rashes Neurological: Normal speech, Normal strength at 5/5 x4 extr Lymphatics: No axilla or inguinal lymphadenopathy - Studies Laboratory Data (last 24 hrs) 10/28/20 00:30: PT 13.6 H, INR 1.16 10/28/20 00:30: WBC 9.2 D, Hgb 9.4 L D, Hct 29.7 L D, Plt Count 273 D 10/28/20 00:30: Sodium 141, Potassium 3.4 L, BUN 46 H, Creatinine 2.09 H, Glucose 97, Magnesium 2.3, Total Bilirubin 0.3, AST 14 L, ALT 19, Alkaline Phosphatase 60 Assessment and Plan - Problems (Diagnosis) (1) Acute kidney injury Current Visit: No Status: Acute (2) COPD exacerbation Onset Date: 02/17/17 Current Visit: No Status: Acute (3) Chronic obstructive lung disease COPD Current Visit: No Status: Acute (4) History of CHF (congestive heart failure) Current Visit: No Status: Acute (5) Carotid arterial disease Onset Date: 01/11/18 Current Visit: No Status: Chronic (6) Depressive disorder Onset Date: 01/11/18 Current Visit: No Status: Chronic (7) Hyperlipidemia Onset Date: 01/11/18 Current Visit: No Status: Chronic Qualifiers: (8) Hypertension Onset Date: 01/11/18 Current Visit: No Status: Chronic Qualifiers: (9) Hypothyroidism Onset Date: 01/11/18 Current Visit: No Status: Chronic Qualifiers: (10) Obstructive sleep apnea Onset Date: 01/11/18 Current Visit: No Status: Chronic (11) Peripheral vascular disease Onset Date: 06/21/18 Current Visit: No Status: Chronic - Plan Acute hypoxic respiratory failure Acute COPD exacerbation CHF Acute kidney injury Hypokalemia Hypertension hyperlipidemia hypothyroidism Peripheral vascular disease Depressive disorder History of obstructing sleep apnea Plan Monitor closely under telemetry Patient is on BiPAP Continue BiPAP for now Pulmonology consulted Started on bronchodilators and steroids Continue home medications and titrate as needed Monitor renal parameters Elevated BNP noted Will continue Lasix Antihypertensives titrated GI/DVT prophylaxis Advanced directive : limited code with no CPR but okay for intubation and ACLS drugs - Advance Directives Does patient have a Living Will: Yes Does patient have a Durable POA for Healthcare: Yes Time Spent Managing Pts Care (In Minutes): 45
[2020-10-28] MEDS ORDERED: HOME MED 1 EA UNK (Spironolactone [Aldactone] 50 MG Tablet) PO PRN (04:29)
[2020-10-28] MEDS ORDERED: ZOLPIDEM TARTRATE 5 MG TABLET PO PRN (04:29)
[2020-10-28] MEDS ORDERED: METHYLPREDNISOLONE 125 MG INJ IV SCH (06:00)
[2020-10-28] MEDS: LEVOTHYROXINE SOD 0.1 MG TAB PO SCH (06:54)
[2020-10-28] MEDS: IPRATROPIUM BROM 0.5MG/2.5ML NEB SCH ×3 (08:45→19:55)
[2020-10-28] MEDS: ARFORMOTEROL TARTRATE 15 MCG/2 ML VIAL.NEB IH SCH ×2 (08:45→19:55)
[2020-10-28] MEDS ORDERED: BUPROPRION HCL S.R. 150MG TAB PO SCH (09:00)
[2020-10-28] MEDS ORDERED: APIXABAN 2.5 MG TABLET PO SCH (09:00)
[2020-10-28] MEDS ORDERED: HOME MED 1 EA UNK (Tiotropium Bromide [Spiriva Respimat] 4 GM Mist.Inhal) IH SCH (09:00)
--- NOTE | 2020-10-28 09:28 | RAD REPORT ---
EXAM DESCRIPTION: RAD - Chest Single View - 10/28/2020 1:04 am CLINICAL HISTORY: SOB COMPARISON: Portable October 19 TECHNIQUE: AP portable chest image was obtained 10/28/2020 1:04 am . FINDINGS: No peripheral mass or consolidation. Patient has chronic interstitial lung pattern similar or slightly increased from comparison. Cardiac silhouette has enlarged from chamber enlargement or p ossibly pericardial effusion. Pulmonary vasculature not outside of normal range. No pneumothorax seen . Bilateral costophrenic angle blunting present. No acute bony abnormality seen. No acute aortic find ings suspected. IMPRESSION: Mild failure/ volume overload pattern. No focal mass or consolidation.
--- NOTE | 2020-10-28 10:11 | P.PN ---
Date of Service: 10/28/20 Patient seen and examined. She states her breathing is better. She is requiring 5 L oxygen by nasal cannula. COPD exacerbation Acute on chronic diastolic heart failure Atrial fibrillation-rate controlled Plan: Continue IV steroid, scheduled bronchodilators. Oral Lasix Continue sotalol and anticoagulation. Titrate oxygen.
[2020-10-28] MEDS: HYDRALAZINE HCL 25 MG TABLET PO SCH ×3 (10:23→21:34)
[2020-10-28] MEDS: ROFLUMILAST 500 MCG TABLET PO SCH (10:24)
[2020-10-28] MEDS: NIFEDIPINE XL 90 MG TABLET PO SCH (10:24)
[2020-10-28] MEDS: CLOPIDOGREL 75 MG TABLET PO SCH (10:24)
[2020-10-28] MEDS: ASPIRIN 81 MG CHEWABLE TABLET PO SCH (10:24)
[2020-10-28] MEDS: CITALOPRAM 10 MG TABLET PO SCH (10:25)
[2020-10-28] MEDS: PANTOPRAZOLE 40MG TABLET PO SCH (10:25)
[2020-10-28] MEDS: SOTALOL HCL 80 MG TAB PO SCH ×2 (10:25→21:34)
[2020-10-28] MEDS: FUROSEMIDE 40 MG TABLET PO SCH (10:26)
--- NOTE | 2020-10-28 11:11 | P.CNS ---
Date of Consult: 10/28/20 Reason for Consult: Shortness of breath Chief Complaint: Shortness of breath History of Present Illness: Patient is 80 years of age well known to me with a history of terminal COPD she has become worse over the past week complaining of lower extremity edema of worsening dyspnea on exertion recently she is doing somewhat better and feeling very weak Allergies codeine Allergy (Verified 01/10/18 02:21) Unknown perindopril erbumine [From Aceon] Allergy (Verified 01/10/18 02:21) UNKNOWN Home Medications: Albuterol Inhaler [Ventolin Inhaler*] 2 puff IH Q4H PRN 09/03/18 Buproprion S.r. [Wellbutrin Sr*] 100 mg PO BID 09/03/18 Citalopram [Celexa*] 40 mg PO DAILY 09/03/18 Ipratropium/Albuterol Sulfate [Iprat-Albut 0.5-3(2.5) mg/3 ml] 3 ml PO QID PRN 09/03/18 Levothyroxine [Synthroid*] 100 mcg PO [id number] 09/03/18 Pantoprazole Sodium [Protonix] 40 mg PO DAILY 09/03/18 Pregabalin [Lyrica*] 75 mg PO DAILY 09/03/18 Roflumilast [Daliresp*] 500 mcg PO DAILY 09/03/18 Rosuvastatin [Crestor*] 10 mg PO BEDTIME 09/03/18 Aspirin Chewable [Aspirin Chewable*] 81 mg PO DAILY 05/15/20 predniSONE [Deltasone] 5 mg PO DAILY 05/15/20 Albuterol Sulfate [Ventolin Hfa] 2 inhaler IH Q4HR 10/10/20 Arformoterol Tartrate [Brovana] 2 ml IH BID 10/10/20 Clopidogrel Bisulfate [Plavix] 75 mg PO DAILY 10/10/20 Amox/Clavulanate [Augmentin 875-125 Tab] 875 mg PO BID 10 Days #20 tab 10/18/20 Apixaban [Eliquis] 2.5 mg PO BID 30 Days #60 tablet 10/18/20 Furosemide [Lasix] 40 mg PO DAILY 30 Days #30 tab 10/18/20 Hydralazine HCl [Apresoline] 50 mg PO TID 30 Days #90 tablet 10/18/20 NIFEdipine [Nifedipine ER] 90 mg PO DAILY 30 Days #30 tab.er.24 10/18/20 Sotalol HCl [Betapace] 80 mg PO BID 30 Days #60 tab 10/18/20 Anastrozole [Arimidex*] 1 mg PO DAILY 10/28/20 Nitroglycerin Patch [Transderm-Nitro 0.4MG/Hr Patch*] 1 patch TD DAILY 10/28/20 - Past Medical/Surgical History Diabetic: No -: History of breast cancer -: History of throat cancer -: Hypertension -: Hypothyroidism -: COPD, steroid and oxygen-dependent -: Peripheral vascular disease -: Carotid arterial disease -: CHF -: Hyperlipidemia -: Obstructive sleep apnea -: Neuropathy -: Tobacco abuse -: Hysterectomy -: Hemorrhoidectomy -: Radiation to the vocal cords -: Stents to the lower extremity and carotid -: Bilateral eye surgery -: Left-sided mastectomy -: chemotherapy Psychosocial/ Personal History: Patient is . She has children. She does not work. - Family History Father Medical History: Heart disease Mother Medical History: Cancer Sister Medical History: Cancer Notes: Brother Medical History: Heart disease Notes: - Social History Smoking Status: Unknown if ever smoked Alcohol use: No CD- Drugs: No Caffeine use: No Place of Residence: Home Review of Systems General: Weakness Respiratory: Shortness of Breath Physical Examination Temp Pulse Resp BP Pulse Ox 97.5 F 68 18 145/64 H 97 10/28/20 08:00 10/28/20 10:24 10/28/20 08:00 10/28/20 10:24 10/28/20 08:00 General: Alert, Oriented x3, Mild distress Neck: Supple Respiratory: Diminished Cardiovascular: No edema, Normal S1 S2 Gastrointestinal: Normal bowel sounds, Soft and benign Laboratory Data (last 24 hrs) 10/28/20 00:30: PT 13.6 H, INR 1.16 10/28/20 00:30: WBC 9.2 D, Hgb 9.4 L D, Hct 29.7 L D, Plt Count 273 D 10/28/20 00:30: Sodium 141, Potassium 3.4 L, BUN 46 H, Creatinine 2.09 H, Glucose 97, Magnesium 2.3, Total Bilirubin 0.3, AST 14 L, ALT 19, Alkaline Phosphatase 60 - Problems (1) COPD exacerbation Onset Date: 02/17/17 Current Visit: No Status: Acute Plan: Patient is 80 years of age with terminal COPD admitted with exacerbation she is on maximum therapy at home in addition to aortic stenosis the an PEs very elevated no evidence of sepsis chest x-ray shows COPD changes patient has chronic renal failure agree with Lasix patient is on maximum bronchodilator therapy increase the dose of Eliquis 5 mg twice a day high risk for thromboembolism CO2 was mildly elevated lower extremity venous Doppler patient to use her home noninvasive ventilator prognosis poor she has been gradually declining no evidence of volume overload right now continue with the present dose of diuretic discharged to a SNF unit
[2020-10-28] MEDS: NITROGLYCERIN 0.4 MG/HR (10 MG) PATCH TD SCH (12:55)
[2020-10-28] MEDS: buPROPion HCL 100 MG TAB PO SCH ×2 (13:00→21:33)
--- NOTE | 2020-10-28 14:37 | RAD REPORT ---
EXAM DESCRIPTION: US - Extrem Venous W Compress Seven - 10/28/2020 1:02 pm CLINICAL HISTORY: Rule out DVT, bilateral leg pain and swelling COMPARISON: None. TECHNIQUE: Real-time sonographic evaluation of the bilateral lower extremity common femoral, superfi cial femoral, popliteal and posterior tibial veins was performed. FINDINGS: Normal compressibility, flow augmentation, phasic flow and spontaneous flow are identified in the left and right lower extremity common femoral, superficial femoral, popliteal and posterior t ibial veins. No intraluminal filling defects seen. IMPRESSION: No DVT in either lower extremity.
[2020-10-28] MEDS ORDERED: INFLUENZA VACCINE (for 3y+) 0.5 ML DOSE IMVAC ONE (17:00)
[2020-10-28] MEDS ORDERED: APIXABAN 5 MG TABLET PO SCH (21:00)
[2020-10-28] MEDS ORDERED: PREGABALIN 75 MG CAP PO SCH (21:00)
[2020-10-28] MEDS: ROSUVASTATIN 10 MG TAB PO SCH (21:33)
[2020-10-28] MEDS: APIXABAN 2.5 MG TABLET PO SCH (21:33)
[2020-10-28] MEDS: predniSONE 20 MG TAB PO SCH (21:33)
[2020-10-29] MEDS: IPRATROPIUM BROM 0.5MG/2.5ML NEB SCH ×4 (02:20→20:00)
[2020-10-29 05:38] LABS: Absolute Lymphocytes (CBC) 0.4 K/uL (0.7-4.9); Basophils % 0.1 % (0-1.3); Hematocrit 26.5 % (36.0-45.0); Lymphocytes % 3.5 % (15.3-44.8); MPV 9.5 fL (7.6-11.3); RBC Red Blood Cell Count 2.88 M/uL (3.86-4.86)
[2020-10-29 05:45] LABS: Albumin 2.6 g/dL (3.4-5.0); Bilirubin Total 0.2 mg/dL (0.2-1.0); Potassium 3.7 mmol/L (3.5-5.1); Protein, Total 5.4 g/dL (6.4-8.2)
[2020-10-29] MEDS: LEVOTHYROXINE SOD 0.1 MG TAB PO SCH (05:45)
[2020-10-29 06:32] LABS: Hypersegmented Neutrophils PRESENT; Platelet Estimate ADEQ
[2020-10-29 06:39] LABS: Blood Morphology Comment NOT SEEN (NOT SEEN)
[2020-10-29] MEDS: ARFORMOTEROL TARTRATE 15 MCG/2 ML VIAL.NEB IH SCH ×2 (08:02→20:00)
[2020-10-29] MEDS: ROFLUMILAST 500 MCG TABLET PO SCH (09:00)
[2020-10-29] MEDS: buPROPion HCL 100 MG TAB PO SCH (09:00)
[2020-10-29] MEDS: NITROGLYCERIN 0.4 MG/HR (10 MG) PATCH TD SCH (09:32)
[2020-10-29] MEDS: ASPIRIN 81 MG CHEWABLE TABLET PO SCH (09:34)
[2020-10-29] MEDS: CITALOPRAM 10 MG TABLET PO SCH (09:36)
[2020-10-29] MEDS: APIXABAN 2.5 MG TABLET PO SCH ×2 (09:37→21:22)
[2020-10-29] MEDS: PANTOPRAZOLE 40MG TABLET PO SCH (09:37)
[2020-10-29] MEDS: HYDRALAZINE HCL 25 MG TABLET PO SCH ×3 (09:37→21:21)
[2020-10-29] MEDS: predniSONE 20 MG TAB PO SCH ×2 (09:37→21:22)
[2020-10-29] MEDS: NIFEDIPINE XL 90 MG TABLET PO SCH (09:38)
[2020-10-29] MEDS: FUROSEMIDE 40 MG TABLET PO SCH (09:38)
[2020-10-29] MEDS: CLOPIDOGREL 75 MG TABLET PO SCH (09:39)
[2020-10-29] MEDS: SOTALOL HCL 80 MG TAB PO SCH ×2 (09:39→21:21)
--- NOTE | 2020-10-29 12:44 | P.PN ---
Subjective Date of Service: 10/29/20 Chief Complaint: COPD exacerbation Subjective: Improving (Patient is doing better having problem with home oxygen apparently she has a high antigen which is intermittent oxygen is back to her baseline) Review of Systems General: Weakness Respiratory: Shortness of Breath Physical Examination - Vital Signs Temperature: 97.7 F Blood Pressure: 133/60 Pulse: 72 Respirations: 20 Pulse Ox (%): 90 - Physical Exam General: Alert, Oriented x3 Respiratory: Clear to auscultation bilaterally, Diminished Cardiovascular: No edema, Regular rate/rhythm Assessment & Plan - Problems (Diagnosis) (1) COPD exacerbation Onset Date: 02/17/17 Current Visit: No Status: Acute Plan: Patient admitted with COPD exacerbation doing better no evidence of DVT evaluate for rehab or SNF for advice patient she had he had continuous oxygen will arrange for home oxygen bottle resume spironolactone 25 mg twice a day reduce Lasix to 20 mg once a day continue with bronchodilator oxygen saturation satisfactory on 3 L
--- NOTE | 2020-10-29 13:30 | P.PN ---
Subjective Date of Service: 10/29/20 Chief Complaint: COPD exacerbation Patient reports some improvement in her shortness of breath. She is apparently at baseline and tolerating 3 L of oxygen by nasal cannula. Daughter is concerned of excessive drowsiness from her psychotropic medications. Physical Examination - Vital Signs Temperature: 97.7 F Blood Pressure: 133/60 Pulse: 72 Respirations: 20 Pulse Ox (%): 90 - Physical Exam General: Alert, In no apparent distress, Other (Frail-appearing.) HEENT: Mucous membr. moist/pink, Other (Oxygen by nasal cannula) Neck: Supple, JVD not distended Respiratory: Clear to auscultation bilaterally, Diminished, Other (No crackles.) Cardiovascular: No edema, Regular rate/rhythm, Normal S1 S2 Gastrointestinal: Normal bowel sounds, Soft and benign, Non-distended, No tenderness Neurological: Normal speech, Normal strength at 5/5 x4 extr, Cranial nerves 3-12 intact Assessment And Plan - Current Problems (Diagnosis) (1) COPD exacerbation Onset Date: 02/17/17 Current Visit: No Status: Acute (2) Chronic respiratory failure with hypoxia and hypercapnia Current Visit: Yes Status: Acute (3) Chronic kidney disease, stage 3 Current Visit: Yes Status: Acute (4) Depressive disorder Onset Date: 01/11/18 Current Visit: No Status: Chronic (5) Obstructive sleep apnea Onset Date: 01/11/18 Current Visit: No Status: Chronic (6) Chronic diastolic (congestive) heart failure Current Visit: Yes Status: Acute (7) Chronic atrial fibrillation Current Visit: Yes Status: Acute - Plan Patient transitioned to oral prednisone by pulmonary. Continue scheduled bronchodilators-Brovana, ipratropium and Daliresp. Albuterol p.r.n. Continue sotalol and Eliquis. Eliquis is renally dosed. Continue Lasix maintenance. Continue to monitor renal function. Patient desires to go to inpatient rehab. Social service is assisting with disposition. Pulmonary is following. Patient declining to take some of her psychotropic medications. Discontinued Lyrica and Wellbutrin for now.
[2020-10-29] MEDS: ROSUVASTATIN 10 MG TAB PO SCH (21:21)
[2020-10-29] MEDS: SPIRONOLACTONE 25 MG TABLET PO SCH (21:22)
[2020-10-30] MEDS: IPRATROPIUM BROM 0.5MG/2.5ML NEB SCH ×4 (01:40→20:05)
[2020-10-30] MEDS: LEVOTHYROXINE SOD 0.1 MG TAB PO SCH (05:05)
[2020-10-30 05:39] LABS: Absolute Lymphocytes (CBC) 0.4 K/uL (0.7-4.9); Basophils % 0.1 % (0-1.3); Hematocrit 26.1 % (36.0-45.0); Lymphocytes % 4.2 % (15.3-44.8); MPV 9.2 fL (7.6-11.3); RBC Red Blood Cell Count 2.86 M/uL (3.86-4.86)
[2020-10-30 05:49] LABS: Magnesium 2.4 mg/dL (1.8-2.4); Potassium 3.7 mmol/L (3.5-5.1)
[2020-10-30] MEDS: ARFORMOTEROL TARTRATE 15 MCG/2 ML VIAL.NEB IH SCH ×2 (06:35→20:05)
[2020-10-30] MEDS: predniSONE 20 MG TAB PO SCH ×2 (09:12→22:23)
[2020-10-30] MEDS: NIFEDIPINE XL 90 MG TABLET PO SCH (09:12)
[2020-10-30] MEDS: CITALOPRAM 10 MG TABLET PO SCH (09:12)
[2020-10-30] MEDS: CLOPIDOGREL 75 MG TABLET PO SCH (09:12)
[2020-10-30] MEDS: PANTOPRAZOLE 40MG TABLET PO SCH (09:13)
[2020-10-30] MEDS: SPIRONOLACTONE 25 MG TABLET PO SCH ×2 (09:13→22:23)
[2020-10-30] MEDS: ASPIRIN 81 MG CHEWABLE TABLET PO SCH (09:13)
[2020-10-30] MEDS: SOTALOL HCL 80 MG TAB PO SCH ×2 (09:13→22:24)
[2020-10-30] MEDS: FUROSEMIDE 20 MG TABLET PO SCH (09:14)
[2020-10-30] MEDS: APIXABAN 2.5 MG TABLET PO SCH ×2 (09:14→22:23)
[2020-10-30] MEDS: ROFLUMILAST 500 MCG TABLET PO SCH (09:14)
[2020-10-30] MEDS: HYDRALAZINE HCL 25 MG TABLET PO SCH ×3 (09:14→22:23)
[2020-10-30] MEDS: NITROGLYCERIN 0.4 MG/HR (10 MG) PATCH TD SCH (09:19)
[2020-10-30] MEDS ORDERED: NYSTATIN 500,000 UNIT/5 ML UDC PO SCH (17:00)
[2020-10-30] MEDS: CALCIUM CARBONATE CHEW 500MG TAB PO SCH (17:39)
[2020-10-30] MEDS: ROSUVASTATIN 10 MG TAB PO SCH (22:23)
[2020-10-31] MEDS: IPRATROPIUM BROM 0.5MG/2.5ML NEB SCH ×4 (01:15→19:40)
[2020-10-31] MEDS: LEVOTHYROXINE SOD 0.1 MG TAB PO SCH (05:48)
[2020-10-31 05:58] LABS: Absolute Lymphocytes (CBC) 0.3 K/uL (0.7-4.9); Basophils % 0.5 % (0-1.3); Hematocrit 28.4 % (36.0-45.0); Lymphocytes % 3.4 % (15.3-44.8); MPV 9.4 fL (7.6-11.3); RBC Red Blood Cell Count 3.07 M/uL (3.86-4.86)
[2020-10-31 06:09] LABS: Albumin 2.8 g/dL (3.4-5.0); Bilirubin Total 0.3 mg/dL (0.2-1.0); Potassium 3.8 mmol/L (3.5-5.1); Protein, Total 5.6 g/dL (6.4-8.2)
[2020-10-31] MEDS: ARFORMOTEROL TARTRATE 15 MCG/2 ML VIAL.NEB IH SCH ×2 (07:19→19:40)
[2020-10-31] MEDS ORDERED: predniSONE 10 MG TAB PO SCH (09:00)
[2020-10-31] MEDS: NITROGLYCERIN 0.4 MG/HR (10 MG) PATCH TD SCH (09:43)
[2020-10-31] MEDS: HYDRALAZINE HCL 25 MG TABLET PO SCH ×3 (09:44→20:22)
[2020-10-31] MEDS: ASPIRIN 81 MG CHEWABLE TABLET PO SCH (09:44)
[2020-10-31] MEDS: DOCUSATE NA 100 MG CAP PO SCH (09:44)
[2020-10-31] MEDS: PANTOPRAZOLE 40MG TABLET PO SCH (09:45)
[2020-10-31] MEDS: APIXABAN 2.5 MG TABLET PO SCH (09:45)
[2020-10-31] MEDS: CALCIUM CARBONATE CHEW 500MG TAB PO SCH (09:45)
[2020-10-31] MEDS: ROFLUMILAST 500 MCG TABLET PO SCH (09:45)
[2020-10-31] MEDS: CLOPIDOGREL 75 MG TABLET PO SCH (09:45)
[2020-10-31] MEDS: SPIRONOLACTONE 25 MG TABLET PO SCH ×2 (09:46→20:22)
[2020-10-31] MEDS: CITALOPRAM 10 MG TABLET PO SCH (09:46)
[2020-10-31] MEDS: FUROSEMIDE 20 MG TABLET PO SCH (09:46)
[2020-10-31] MEDS: NIFEDIPINE XL 90 MG TABLET PO SCH (09:46)
[2020-10-31] MEDS: ANASTROZOLE 1 MG PO SCH (09:47)
[2020-10-31] MEDS: SOTALOL HCL 80 MG TAB PO SCH ×2 (09:47→20:22)
--- NOTE | 2020-10-31 12:13 | P.PN ---
Subjective Date of Service: 10/31/20 Chief Complaint: COPD exacerbation Patient is not doing well he is more lethargic requiring BiPAP saturations have been low D-dimer high high risk for thromboembolism Review of Systems General: Weakness Respiratory: Shortness of Breath Physical Examination - Vital Signs Temperature: 97.9 F Blood Pressure: 151/67 Pulse: 70 Respirations: 18 Pulse Ox (%): 92 - Physical Exam General: Alert HEENT: Atraumatic Respiratory: Clear to auscultation bilaterally Cardiovascular: No edema, Normal S1 S2 Assessment & Plan - Problems (Diagnosis) (1) COPD exacerbation Onset Date: 02/17/17 Current Visit: No Status: Acute Plan: Patient is not doing too well she is more short of breath tachypneic high risk for thromboembolism will increase Eliquis 2 5 mg p.o. b.i.d. patient's D-dimer is very elevated lower extremity Dopplers are negative right now patient is not stable for a V/Q scan or a CT scan will reorder a 2D echo with Doppler resume IV Solu-Medrol repeat chest x-ray ordered
[2020-10-31] MEDS: METHYLPREDNISOLONE 40 MG INJ IV SCH ×2 (13:25→20:20)
--- NOTE | 2020-10-31 14:57 | PN ---
Date of Progress Note: 10/30/2020 According to the family, the patient is not quite as energetic and is alert as over the past 24 hours , questionable secondary to Ambien and we will discontinue. Her overall status seems stable. The di sposition has come up for discussion once again between rehab and home with help including home healt h. She adamantly does not want to go to a SNF. We will discuss with Business Center Representative as far as sharon burgos once more for a rehab. Also, we will discuss with Pulmonology. HR/MODL Voice ID: [id number] Report ID: [id number]
[2020-10-31] MEDS: ALBUTEROL 2.5 MG/3 ML NEB SOL NEB PRN (15:20)
[2020-10-31 15:25] LABS: Blood Gas Oxyhemoglobin 89.1 % (94-97); Blood O2 Saturation 91.3 % (92-98.5)
--- NOTE | 2020-10-31 17:06 | RAD REPORT ---
EXAM DESCRIPTION: RAD - Chest Single View - 10/31/2020 4:57 pm CLINICAL HISTORY: COPD Chest pain. COMPARISON: Chest Single View dated 10/28/2020; Chest Single View dated 10/19/2020; Chest Single View d ated 10/17/2020; Chest Single View dated 10/15/2020 FINDINGS: Portable technique limits examination quality. Emphysematous changes are present. Small bilateral pleural effusions are present with slight increase d opacity in the right lung base since comparative study. The heart is moderately enlarged in size. T ortuous and atherosclerotic aortic arch. IMPRESSION: Mild worsening in right lung base aeration since comparative study.
--- NOTE | 2020-10-31 17:30 | CON ---
Date of Consultation: 10/31/2020 Reason For Consultation: Elevated BUN and creatinine, hypertension, fluid management. History Of Present Illness: This is a pleasant 80-year-old female, well known to me from previous admission with significant past medical history of hypertension, hyperlipidemia, COPD, steroid-dependent obstructive sleep apnea, the patient recently admitted to the hospital with COPD exacerbation, respiratory failure, intubated, extubated. The patient had acute kidney injury secondary to over diuresis/renal artery stenosis. Confirmed with renal scan. The patient readmitted to the hospital because of over diureses, treated, recovered. She came to the hospital again because of shortness of breath and increase in leg swelling. Lab data showed elevation in BUN and creatinine. For that reason, we have been consulted. The patient denied nonsteroid. The patient's losartan was discontinued last visit. The patient was hypoxemic and placed on BiPAP. Past Medical History: Includes; 1. Breast cancer. 2. Hypertension. 3. Renal artery stenosis confirmed with renal scan. 4. COPD. 5. Carotid stenosis. 6. Coronary artery disease, complicated with CHF. 7. Obstructive sleep apnea, on BiPAP. Past Surgical History: Includes; 1. Hysterectomy. 2. Hemorrhoidectomy. 3. Vocal cord radiation. 4. Eye surgery. 5. Left-sided mastectomy. 6. Chemotherapy. Home Medications: Include albuterol, levothyroxine, pantoprazole, pravastatin, spironolactone 50 b.i.d., Ambien, aspirin, prednisone, KCl, Lasix 40 daily, nifedipine 90, nitroglycerin. Family History: Positive for coronary artery disease, hypertension, and cancer. Social History: Lives with family. Ex-smoker. Denied alcohol. Denied drug abuse. Review of Systems: Head and Neck: No red eye. No ear pain. GI: No nausea. No vomiting. : No polyuria. No dysuria. No hematuria. 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 Respiratory: Has shortness of breath. Cardiovascular: Has leg swelling. Endocrine: No polydipsia. Skin: No rash. Neuro: Has neuropathy. Musculoskeletal: Generalized weakness. Physical Examination: Vital Signs: When I saw the patient, the patient is on BiPAP. Blood pressure of 151/67, pulse of 70, afebrile. Over the night, the patient was placed on Lasix 20 daily and spironolactone. The patient had good urine output. Chest: Crackles bilateral. Heart: S1, S2. Systolic murmur. Abdomen: Soft, nontender. Extremities: Plus edema. Neuro: The patient is sleepy. Laboratory Data: WBC 8.2, H and H 9.3/28.4, platelets 216. Sodium 140, potassium 3.8, bicarb 33, BUN 52, creatinine 1.8, calcium 8.6, albumin 2.8. Current Medications: The patient on include; 1. Calcium carbonate. 2. Aspirin. 3. Hydralazine. 4. Nifedipine 90. 5. Spironolactone 25 b.i.d. 6. Citalopram. 7. Levothyroxine. 8. Solu-Medrol. Assessment And Plan: 1. Chronic kidney disease secondary to renal vascular disease, hypertension, nephrosclerosis, cardiorenal, on the wet side. I am going to go ahead and increase the Lasix to 40 mg, continue spironolactone for the time being. We will monitor the patient closely. I am going to repeat chest x-ray for better evaluation of her fluid status and we will monitor the patient. The patient has been scheduled for renal angiogram with a stent using carbon monoxide. We will follow up as outpatient. 2. Hypertension, currently controlled, optimal. Continue current treatment. Increase Lasix as above. 3. Chronic obstructive pulmonary disease exacerbation. We will follow up with Pulmonary. Given the altered mental status, we will order ABG. 4. Renal artery stenosis as above. 5. Edema secondary to renal failure. Renal artery stenosis as above. time spend discussing with the patient face to face , placing order , discusse with the patient and other seal delivery vehicle team technician including hospitalist 75 min. JOSH Voice ID: [id number] Report ID: [id number] TOÑITO
[2020-10-31] MEDS: APIXABAN 5 MG TABLET PO SCH (20:21)
[2020-10-31] MEDS: ROSUVASTATIN 10 MG TAB PO SCH (20:23)
[2020-10-31] MEDS: NYSTATIN 500,000 UNIT/5 ML UDC PO PRN (20:34)
[2020-11-01] MEDS: IPRATROPIUM BROM 0.5MG/2.5ML NEB SCH ×4 (02:50→19:15)
[2020-11-01] MEDS: LEVOTHYROXINE SOD 0.1 MG TAB PO SCH (05:38)
--- NOTE | 2020-11-01 07:01 | RAD REPORT ---
EXAM DESCRIPTION: RAD - Chest Single View - 11/01/2020 5:15 am CLINICAL HISTORY: Resp failure COMPARISON: Portable October 31 TECHNIQUE: AP portable chest image was obtained 11/01/2020 5:15 am . FINDINGS: Interstitial pattern is stable. Bilateral pleural effusions with lung base atelectasis not substantially different. Cardiomegaly mild vascular engorgement are present, not clearly different f rom comparison. No pneumothorax. No acute bony abnormality seen. No acute aortic findings suspected. IMPRESSION: Stable chest since October 31
[2020-11-01] MEDS ORDERED: FUROSEMIDE 40 MG TABLET PO SCH (09:00)
[2020-11-01] MEDS: ALBUTEROL 2.5 MG/3 ML NEB SOL NEB PRN ×2 (09:24→15:10)
[2020-11-01] MEDS: ARFORMOTEROL TARTRATE 15 MCG/2 ML VIAL.NEB IH SCH ×2 (09:24→19:15)
[2020-11-01] MEDS: PANTOPRAZOLE 40MG TABLET PO SCH (09:50)
[2020-11-01] MEDS: NIFEDIPINE XL 90 MG TABLET PO SCH (09:50)
[2020-11-01] MEDS: DOCUSATE NA 100 MG CAP PO SCH (09:50)
[2020-11-01] MEDS: HYDRALAZINE HCL 25 MG TABLET PO SCH ×3 (09:50→20:31)
[2020-11-01] MEDS: ROFLUMILAST 500 MCG TABLET PO SCH (09:50)
[2020-11-01] MEDS: CALCIUM CARBONATE CHEW 500MG TAB PO SCH (09:50)
[2020-11-01] MEDS: CITALOPRAM 10 MG TABLET PO SCH (09:51)
[2020-11-01] MEDS: METHYLPREDNISOLONE 40 MG INJ IV SCH ×2 (09:51→20:30)
[2020-11-01] MEDS: SPIRONOLACTONE 25 MG TABLET PO SCH ×2 (09:51→20:31)
[2020-11-01] MEDS: SOTALOL HCL 80 MG TAB PO SCH ×2 (09:51→20:32)
[2020-11-01] MEDS: ASPIRIN 81 MG CHEWABLE TABLET PO SCH (09:51)
[2020-11-01] MEDS: APIXABAN 5 MG TABLET PO SCH ×2 (09:51→20:32)
[2020-11-01] MEDS: NITROGLYCERIN 0.4 MG/HR (10 MG) PATCH TD SCH (09:54)
[2020-11-01] MEDS: ANASTROZOLE 1 MG PO SCH (09:54)
--- NOTE | 2020-11-01 11:11 | PN ---
Date of Progress Note: 10/31/2020 The patient continues to lose ground as far as her pulmonary function is concerned. She is requiring increasing amount of assistance. Gone back to IV steroids. Her overall condition has deteriorated s omewhat over the past few days. Discussion about the disposition was made with some family members. The possibility of an LTAC has been raised by Dr. Garcia and we will proceed with this possibility. Depending on the response to the IV steroids, further recommendations will be made. HR/MODL Voice ID: [id number] Report ID: [id number]
--- NOTE | 2020-11-01 12:16 | PN ---
Date of Progress Note: 11/01/2020 Subjective: The patient was admitted with chronic kidney disease, over volume, respiratory failure secondary to COPD exacerbation. Physical Examination: Vital Signs: Blood pressure 156/67, pulse of 69. The patient, yesterday we increased the Lasix, had good urine output up to 600, today has 1100, started to be negative balance. Chest: Wheezing, bilateral crackles on the both bases. Heart: S1, S2. Systolic murmur. Abdomen: Soft, nontender. Extremities: Plus edema. Neuro: More awake. No focality. Laboratory Data: WBC 8.2, H and H 9.3/28.4, platelets 216. Sodium 140, potassium 3.8, bicarb 33, BUN 52, creatinine 1.8, GFR of 27, calcium 8.6. Current Medications: The patient on include; 1. Aspirin. 2. Nystatin. 3. Breathing treatment. 4. Eliquis. 5. Calcium carbonate. 6. Nifedipine 90. 7. Lovastatin. 8. Spironolactone 25 b.i.d. 9. Lasix 40 daily. 10. Pantoprazole. 11. Levothyroxine. Assessment And Plan: 1. Chronic kidney disease secondary to hypertension, nephrosclerosis/renal vascular disease confirmed with renal artery stenosis, confirmed with nuclear medicine renal scan on previous admission. The patient is scheduled for angioplasty at [facility] to be done tomorrow. Unfortunately, the patient is inpatient currently, so we are not going to be able to do it in the setting of the inpatient. We will follow up the patient and we will plan to do it upon discharge the patient. I am going to continue current dose of Lasix. I am going to switch it to IV. 2. Hypertension secondary to renal artery stenosis, controlled, optimal. Continue current medication. 3. Respiratory failure combined, chronic obstructive pulmonary disease exacerbation mainly with congestive heart failure secondary to renal artery stenosis, fluid status better. I am going to continue Lasix. We will follow up with Pulmonary. Continue spironolactone. 4. Hypokalemia, improved. We will continue Aldactone. time spend discussing with the patient face to face , placing order , discusse with the patient and other team facilitator including hospitalist 45 min. JOSH Voice ID: [id number] Report ID: [id number] MTDJuwan
--- NOTE | 2020-11-01 14:16 | P.PN ---
Subjective Date of Service: 11/01/20 Chief Complaint: COPD exacerbation No change patient still continues to remain hypoxic and is requiring BiPAP Review of Systems General: Weakness Respiratory: Shortness of Breath Physical Examination - Vital Signs Temperature: 97.0 F Blood Pressure: 138/62 Pulse: 65 Respirations: 20 Pulse Ox (%): 97 - Physical Exam General: Alert, Oriented x3, Mild distress Respiratory: Clear to auscultation bilaterally, Diminished Cardiovascular: No edema, Normal S1 S2 Assessment & Plan - Problems (Diagnosis) (1) COPD exacerbation Onset Date: 02/17/17 Current Visit: No Status: Acute Plan: COPD exacerbation she now has developed worsening effusions right greater than the left high risk for thromboembolism continue with higher dose of Eliquis patient has mitral and aortic valve disease based on the echocardiogram with normal left ventricular function continue with Lasix kidney function is improving stable on BiPAP prognosis very poor she already has terminal COPD continue with steroids stable to be transferred to an LTAC
--- NOTE | 2020-11-01 15:37 | PN ---
Date of Progress Note: 11/01/2020 The patient seems minimally better today, on the high-dose steroids, more alert temporarily, but cont inues to be quite sleepy. Her vital signs are basically stable. Discussed with the family about [facility] and this will be put in place for her to see if it is in acceptance or not. Will continue with the IV steroids and see if there is any more progression over the next day or so. HR/MODL Voice ID: [id number] Report ID: [id number]
[2020-11-01] MEDS: ROSUVASTATIN 10 MG TAB PO SCH (20:31)
[2020-11-01] MEDS: NYSTATIN 500,000 UNIT/5 ML UDC PO PRN (20:35)
[2020-11-02] MEDS: IPRATROPIUM BROM 0.5MG/2.5ML NEB SCH ×4 (01:25→20:20)
[2020-11-02 06:04] LABS: Absolute Lymphocytes (CBC) 0.3 K/uL (0.7-4.9); Lymphocytes % 4.8 % (15.3-44.8); MPV 9.3 fL (7.6-11.3); RBC Red Blood Cell Count 3.14 M/uL (3.86-4.86)
[2020-11-02 06:12] LABS: Albumin 2.8 g/dL (3.4-5.0); Phosphorus 3.7 mg/dL (2.5-4.9); Potassium 4.2 mmol/L (3.5-5.1)
[2020-11-02] MEDS: LEVOTHYROXINE SOD 0.1 MG TAB PO SCH (06:30)
[2020-11-02] MEDS: ARFORMOTEROL TARTRATE 15 MCG/2 ML VIAL.NEB IH SCH ×2 (08:45→20:20)
[2020-11-02] MEDS: ALBUTEROL 2.5 MG/3 ML NEB SOL NEB PRN (08:45)
[2020-11-02] MEDS: HYDRALAZINE HCL 25 MG TABLET PO SCH ×3 (09:10→20:28)
[2020-11-02] MEDS: CITALOPRAM 10 MG TABLET PO SCH (09:10)
[2020-11-02] MEDS: NIFEDIPINE XL 90 MG TABLET PO SCH (09:10)
[2020-11-02] MEDS: ASPIRIN 81 MG CHEWABLE TABLET PO SCH (09:11)
[2020-11-02] MEDS: SPIRONOLACTONE 25 MG TABLET PO SCH ×2 (09:11→20:28)
[2020-11-02] MEDS: CALCIUM CARBONATE CHEW 500MG TAB PO SCH (09:11)
[2020-11-02] MEDS: APIXABAN 5 MG TABLET PO SCH ×2 (09:11→20:27)
[2020-11-02] MEDS: PANTOPRAZOLE 40MG TABLET PO SCH (09:11)
[2020-11-02] MEDS: DOCUSATE NA 100 MG CAP PO SCH (09:11)
[2020-11-02] MEDS: SOTALOL HCL 80 MG TAB PO SCH ×2 (09:11→20:28)
[2020-11-02] MEDS: ROFLUMILAST 500 MCG TABLET PO SCH (09:11)
[2020-11-02] MEDS: METHYLPREDNISOLONE 40 MG INJ IV SCH (09:12)
[2020-11-02] MEDS: NITROGLYCERIN 0.4 MG/HR (10 MG) PATCH TD SCH (09:12)
[2020-11-02] MEDS: ANASTROZOLE 1 MG PO SCH (09:12)
[2020-11-02] MEDS: FUROSEMIDE 40 MG/4 ML VIAL IV SCH (09:12)
--- NOTE | 2020-11-02 10:42 | P.PN ---
Subjective Date of Service: 11/02/20 Chief Complaint: COPD exacerbation Subjective pt with HX of COPD , RA , and CKD , admitted with SOB Today cr slightly improved still on BiPAP discharge plan as per primary team, daughter is willing to take pt Home Review of Systems: Head and Neck: No red eye. No ear pain. GI: No nausea, no vomiting. : No polyuria, no dysuria, no hematuria. Carpet Weaver: deferred Respiratory: has shortness of breath. Cardiovascular: No chest pain. Endocrine: No polydipsia. Skin: No rash. Neuro: Has neuropathy. Musculoskeletal: denied pain Physical exam general: Awake and alert, in mild distress , on BiPAP Neck; Supple, No elevated JVD hear: RRR, normal S1,2 no murmur or rub Chest: decreased air entry , no rales or wheezes Abdomen: Soft , Nt Extremities no edema, hand with unlar deviation A/P CKD IIIb due to atherosclerosis cr stable renal dose meds avoid NSAID stable HTN controlled on multiple meds The patient is scheduled for angioplasty at [facility] to be done this week. need to reschedule as an OP COPD exacerbation cont inhalers CHF cont lasix and aldactone total time spent 45min Physical Examination - Vital Signs Temperature: 97.4 F Blood Pressure: 150/66 Pulse: 64 Respirations: 17 Pulse Ox (%): 94
--- NOTE | 2020-11-02 12:25 | P.PN ---
Subjective Date of Service: 11/02/20 Chief Complaint: COPD exacerbation No change in patient's condition she prefers the BiPAP although her sats on 2 L of nasal cannula is satisfactory Review of Systems General: Weakness Respiratory: Shortness of Breath Physical Examination - Vital Signs Temperature: 97.3 F Blood Pressure: 129/60 Pulse: 53 Respirations: 17 Pulse Ox (%): 97 - Physical Exam General: Alert, Cooperative Respiratory: Clear to auscultation bilaterally, Diminished Cardiovascular: No edema, Regular rate/rhythm Assessment & Plan - Problems (Diagnosis) (1) COPD exacerbation Onset Date: 02/17/17 Current Visit: No Status: Acute Plan: Patient is back to her baseline renal function is improving change to nasal cannula oxygen titrate sat to 90% of ordered ABGs vital signs are stable no evidence of volume overload high risk for thromboembolism Eliquis has been increased to 5 mg twice a day I risk for PE DVT Plavix has been discontinued discuss with Dr. risk barker in the nursing staff the decide about placement patient to her resume her home trilogy patient's D-dimer was very elevated labs reviewed renal function is improving
[2020-11-02 14:14] LABS: Arterial Blood Carboxyhemoglob 1.2 % (0-1.5); Blood Gas Oxyhemoglobin 86.6 % (94-97); Blood O2 Saturation 88.8 % (92-98.5)
[2020-11-02] MEDS: CIPROFLOXACIN HCL 500 MG TAB PO SCH ×2 (15:55→20:28)
[2020-11-02] MEDS: NYSTATIN 500,000 UNIT/5 ML UDC PO PRN (16:26)
--- NOTE | 2020-11-02 18:14 | PN ---
Date of Progress Note: 11/02/2020 The patient is much more alert today. She is up sitting in the chair. She states she feels quite we ak. However, overall the situation is somewhat stable, especially compared to last couple of days an d therefore was switched to prednisone orally and tried different breathing combinations to keep her oxygen where her chemistries also improved. Disposition continues to be between a home, SNF and a it in [facility] for an LTAC with the latter in place once the determination will be made for placemen t there and decide which of the other 2 options were most feasible. HR/MODL Voice ID: [id number] Report ID: [id number]
[2020-11-02] MEDS: predniSONE 20 MG TAB PO SCH (20:27)
[2020-11-02] MEDS: ROSUVASTATIN 10 MG TAB PO SCH (20:28)
[2020-11-03] MEDS: IPRATROPIUM BROM 0.5MG/2.5ML NEB SCH ×4 (02:00→20:40)
[2020-11-03] MEDS: ALBUTEROL 2.5 MG/3 ML NEB SOL NEB PRN ×2 (03:40→14:32)
[2020-11-03 05:06] VITALS: BMI 22.8
[2020-11-03] MEDS: LEVOTHYROXINE SOD 0.1 MG TAB PO SCH (05:36)
[2020-11-03 05:58] LABS: Absolute Lymphocytes (CBC) 0.3 K/uL (0.7-4.9); Basophils % 0.1 % (0-1.3); Hematocrit 31.2 % (36.0-45.0); Lymphocytes % 4.8 % (15.3-44.8); MPV 9.5 fL (7.6-11.3); RBC Red Blood Cell Count 3.36 M/uL (3.86-4.86)
[2020-11-03 06:07] LABS: Albumin 2.9 g/dL (3.4-5.0); Phosphorus 3.5 mg/dL (2.5-4.9)
[2020-11-03 08:33] LABS: Blood Morphology Comment NOT SEEN (NOT SEEN); Platelet Estimate ADEQ; White Blood Cell Scan OK (OK)
[2020-11-03] MEDS: PANTOPRAZOLE 40MG TABLET PO SCH (08:34)
[2020-11-03] MEDS: HYDRALAZINE HCL 25 MG TABLET PO SCH ×3 (08:34→20:38)
[2020-11-03] MEDS: CIPROFLOXACIN HCL 500 MG TAB PO SCH ×2 (08:34→20:38)
[2020-11-03] MEDS: NIFEDIPINE XL 90 MG TABLET PO SCH (08:35)
[2020-11-03] MEDS: DOCUSATE NA 100 MG CAP PO SCH (08:35)
[2020-11-03] MEDS: APIXABAN 5 MG TABLET PO SCH ×2 (08:36→20:38)
[2020-11-03] MEDS: CITALOPRAM 10 MG TABLET PO SCH (08:36)
[2020-11-03] MEDS: SOTALOL HCL 80 MG TAB PO SCH ×2 (08:36→20:39)
[2020-11-03] MEDS: SPIRONOLACTONE 25 MG TABLET PO SCH ×2 (08:37→20:40)
[2020-11-03] MEDS: ANASTROZOLE 1 MG PO SCH (08:37)
[2020-11-03] MEDS: ASPIRIN 81 MG CHEWABLE TABLET PO SCH (08:37)
[2020-11-03] MEDS: CALCIUM CARBONATE CHEW 500MG TAB PO SCH (08:38)
[2020-11-03] MEDS: NITROGLYCERIN 0.4 MG/HR (10 MG) PATCH TD SCH (08:38)
[2020-11-03] MEDS: predniSONE 20 MG TAB PO SCH ×2 (08:39→20:39)
[2020-11-03] MEDS: FUROSEMIDE 40 MG/4 ML VIAL IV SCH (08:41)
[2020-11-03] MEDS: ROFLUMILAST 500 MCG TABLET PO SCH (08:45)
[2020-11-03] MEDS: ARFORMOTEROL TARTRATE 15 MCG/2 ML VIAL.NEB IH SCH ×2 (09:08→20:40)
--- NOTE | 2020-11-03 14:14 | PN ---
Date of Progress Note: 11/03/2020 When seen, the patient actually seems somewhat better today. She was more orientated, more alert and definitely more talkative. States she is having frequency. Her sputum did reveal bacteria. We robert l re-evaluate her UA. Awaiting LTAC decision, which will determine her disposition. We will continu e with present regimen. HR/MODL Voice ID: [id number] Report ID: [id number]
--- NOTE | 2020-11-03 16:30 | P.PN ---
Subjective Date of Service: 11/03/20 Chief Complaint: COPD exacerbation Subjective pt with HX of COPD , RA , and CKD , admitted with SOB Today now off BiPAP on 5liters O2 Cr stable will cont current management Review of Systems: Head and Neck: No red eye. No ear pain. GI: No nausea, no vomiting. : No polyuria, no dysuria, no hematuria. 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 Cardiovascular: No chest pain. Endocrine: No polydipsia. Skin: No rash. Neuro: Has neuropathy. Musculoskeletal: denied pain Physical exam general: Awake and alert, in mild distress , on BiPAP Neck; Supple, No elevated JVD hear: RRR, normal S1,2 no murmur or rub Chest: decreased air entry , no rales or wheezes Abdomen: Soft , Nt Extremities no edema, hand with unlar deviation A/P CKD IIIb due to atherosclerosis cr stable renal dose meds avoid NSAID stable HTN controlled on multiple meds The patient is scheduled for angioplasty at [facility] to be done this week. need to reschedule as an OP COPD exacerbation cont inhalers CHF cont lasix and aldactone total time spent 45min Physical Examination - Vital Signs Temperature: 97.2 F Blood Pressure: 139/67 Pulse: 59 Respirations: 18 Pulse Ox (%): 95
[2020-11-03] MEDS: ROSUVASTATIN 10 MG TAB PO SCH (21:18)
[2020-11-04] MEDS: ALBUTEROL 2.5 MG/3 ML NEB SOL NEB PRN ×3 (02:40→13:15)
[2020-11-04] MEDS: IPRATROPIUM BROM 0.5MG/2.5ML NEB SCH ×4 (02:40→20:15)
[2020-11-04] MEDS: LEVOTHYROXINE SOD 0.1 MG TAB PO SCH (05:21)
[2020-11-04 05:57] LABS: Absolute Lymphocytes (CBC) 0.3 K/uL (0.7-4.9); Basophils % 0.2 % (0-1.3); Hematocrit 29.6 % (36.0-45.0); Lymphocytes % 5.2 % (15.3-44.8); RBC Red Blood Cell Count 3.23 M/uL (3.86-4.86)
[2020-11-04 06:17] LABS: Albumin 2.8 g/dL (3.4-5.0); Phosphorus 3.6 mg/dL (2.5-4.9); Potassium 3.9 mmol/L (3.5-5.1)
[2020-11-04] MEDS: predniSONE 20 MG TAB PO SCH ×2 (07:58→20:54)
[2020-11-04] MEDS: SOTALOL HCL 80 MG TAB PO SCH ×2 (07:58→20:52)
[2020-11-04] MEDS: SPIRONOLACTONE 25 MG TABLET PO SCH ×2 (07:58→20:54)
[2020-11-04] MEDS: ASPIRIN 81 MG CHEWABLE TABLET PO SCH (07:59)
[2020-11-04] MEDS: DOCUSATE NA 100 MG CAP PO SCH (07:59)
[2020-11-04] MEDS: APIXABAN 5 MG TABLET PO SCH ×2 (07:59→20:53)
[2020-11-04] MEDS: CITALOPRAM 10 MG TABLET PO SCH (07:59)
[2020-11-04] MEDS: ANASTROZOLE 1 MG PO SCH (07:59)
[2020-11-04] MEDS: HYDRALAZINE HCL 25 MG TABLET PO SCH ×3 (08:00→20:53)
[2020-11-04] MEDS: NIFEDIPINE XL 90 MG TABLET PO SCH (08:00)
[2020-11-04] MEDS: PANTOPRAZOLE 40MG TABLET PO SCH (08:00)
[2020-11-04] MEDS: ROFLUMILAST 500 MCG TABLET PO SCH (08:01)
[2020-11-04] MEDS: CIPROFLOXACIN HCL 500 MG TAB PO SCH ×2 (08:01→20:54)
[2020-11-04] MEDS: CALCIUM CARBONATE CHEW 500MG TAB PO SCH (08:02)
[2020-11-04] MEDS: NITROGLYCERIN 0.4 MG/HR (10 MG) PATCH TD SCH (08:02)
[2020-11-04] MEDS: FUROSEMIDE 40 MG/4 ML VIAL IV SCH (08:03)
[2020-11-04] MEDS: ARFORMOTEROL TARTRATE 15 MCG/2 ML VIAL.NEB IH SCH ×2 (08:30→20:15)
--- NOTE | 2020-11-04 10:39 | P.PN ---
Subjective Date of Service: 11/04/20 Chief Complaint: COPD exacerbation Subjective pt with HX of COPD , RA , and CKD , admitted with SOB Today today pt on BiPAP again minimally communicative poor oral intake pt and family willing to discuss about Hospice Physical exam general: Awake and alert, in mild distress , on BiPAP Neck; Supple, No elevated JVD hear: RRR, normal S1,2 no murmur or rub Chest: decreased air entry , no rales or wheezes Abdomen: Soft , Nt Extremities no edema, hand with unlar deviation A/P CKD IIIb due to atherosclerosis cr stable renal dose meds avoid NSAID stable HTN controlled on multiple meds The patient is scheduled for angioplasty at [facility] to be done this week. need to reschedule as an OP COPD exacerbation cont inhalers BiPAP dependant CHF cont lasix and aldactone total time spent 45min pt is BiPAP dependant , pt and family willing to discuss about Hospice prognosis guarded to poor Physical Examination - Vital Signs Temperature: 98 F Blood Pressure: 139/61 Pulse: 52 Respirations: 20 Pulse Ox (%): 91
[2020-11-04] MEDS: ROSUVASTATIN 10 MG TAB PO SCH (20:52)
[2020-11-04] MEDS: NYSTATIN 500,000 UNIT/5 ML UDC PO PRN (20:52)
[2020-11-05] MEDS: IPRATROPIUM BROM 0.5MG/2.5ML NEB SCH ×4 (01:50→20:00)
[2020-11-05] MEDS: ACETAMINOPHEN 500 MG TAB PO PRN (04:16)
[2020-11-05 05:53] LABS: Absolute Lymphocytes (CBC) 0.3 K/uL (0.7-4.9); Basophils % 0.1 % (0-1.3); Hematocrit 31.5 % (36.0-45.0); Lymphocytes % 5.4 % (15.3-44.8); MPV 8.9 fL (7.6-11.3)
[2020-11-05] MEDS: LEVOTHYROXINE SOD 0.1 MG TAB PO SCH (06:00)
[2020-11-05 07:17] LABS: Albumin 2.8 g/dL (3.4-5.0); Phosphorus 3.9 mg/dL (2.5-4.9); Potassium 3.7 mmol/L (3.5-5.1)
[2020-11-05] MEDS: ARFORMOTEROL TARTRATE 15 MCG/2 ML VIAL.NEB IH SCH ×2 (08:53→20:00)
[2020-11-05] MEDS: NIFEDIPINE XL 90 MG TABLET PO SCH (09:35)
[2020-11-05] MEDS: ASPIRIN 81 MG CHEWABLE TABLET PO SCH (09:35)
[2020-11-05] MEDS: CIPROFLOXACIN HCL 500 MG TAB PO SCH ×2 (09:35→21:19)
[2020-11-05] MEDS: DOCUSATE NA 100 MG CAP PO SCH (09:35)
[2020-11-05] MEDS: ANASTROZOLE 1 MG PO SCH (09:35)
[2020-11-05] MEDS: CALCIUM CARBONATE CHEW 500MG TAB PO SCH (09:35)
[2020-11-05] MEDS: APIXABAN 5 MG TABLET PO SCH ×2 (09:35→21:19)
[2020-11-05] MEDS: CITALOPRAM 10 MG TABLET PO SCH (09:35)
[2020-11-05] MEDS: HYDRALAZINE HCL 25 MG TABLET PO SCH ×3 (09:35→21:19)
[2020-11-05] MEDS: ROFLUMILAST 500 MCG TABLET PO SCH (09:36)
[2020-11-05] MEDS: FUROSEMIDE 40 MG/4 ML VIAL IV SCH (09:36)
[2020-11-05] MEDS: predniSONE 20 MG TAB PO SCH ×2 (09:36→21:19)
[2020-11-05] MEDS: SPIRONOLACTONE 25 MG TABLET PO SCH ×2 (09:36→21:20)
[2020-11-05] MEDS: PANTOPRAZOLE 40MG TABLET PO SCH (09:36)
[2020-11-05] MEDS: SOTALOL HCL 80 MG TAB PO SCH ×2 (09:36→21:19)
[2020-11-05] MEDS: NITROGLYCERIN 0.4 MG/HR (10 MG) PATCH TD SCH (09:37)
--- NOTE | 2020-11-05 21:05 | PN ---
Date of Progress Note: 11/05/2020 Chief Complaint: Acute on chronic kidney injury, chronic kidney stage 3, accelerated by prerenal azo temia, nonoliguric acute tubular necrosis. History Of Present Illness: The patient was admitted for severe COPD exacerbation, was found to have metabolic acidosis and respiratory acidosis. The patient was treated with IV Lasix for congestive h eart failure and cardiorenal syndrome. Renal function has stabilized and improved. The patient has nonoliguric urine output. She did not require dialysis. Review of Systems: Denies PND or orthopnea. Physical Examination: Lungs: Diminished breath sounds. Heart: S1, S2. Abdomen: Soft, benign. Extremities: Slight edema. 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 Creatinine level stabilized at bas veda. The patient will continue renal dose of antibiotics for chronic obstructive pulmonary disease exacerbation. Plan is to avoid nonsteroidal anti-inflammatory medication. 2.Hypertension, controlled on multiple medication. Monitor blood pressure and adjust treatment acco rdingly. 3.Renal osteodystrophy. Monitor phosphorus level, calcium level, and intact PTH. 4.Congestive heart failure. Continue Lasix and Aldactone. 5.Cardiorenal syndrome, on diuretics. Continue current treatment. EB/MODL Voice ID: [id number] Report ID: [id number]
[2020-11-05] MEDS: ROSUVASTATIN 10 MG TAB PO SCH (21:18)
[2020-11-05] MEDS: ENSURE ENLIVE 237 ML CAN PO SCH (21:20)
[2020-11-06] MEDS: ACETAMINOPHEN 500 MG TAB PO PRN ×3 (00:19→09:30)
[2020-11-06] MEDS: IPRATROPIUM BROM 0.5MG/2.5ML NEB SCH ×2 (02:20→11:14)
[2020-11-06 04:18] LABS: Absolute Lymphocytes (CBC) 0.2 K/uL (0.7-4.9); Basophils % 0.2 % (0-1.3); Hematocrit 31.5 % (36.0-45.0); Lymphocytes % 4.3 % (15.3-44.8); MPV 8.6 fL (7.6-11.3); RBC Red Blood Cell Count 3.42 M/uL (3.86-4.86)
[2020-11-06 04:53] LABS: Albumin 2.7 g/dL (3.4-5.0); Phosphorus 3.9 mg/dL (2.5-4.9); Potassium 3.8 mmol/L (3.5-5.1)
[2020-11-06 05:02] VITALS: O2SAT 96
[2020-11-06] MEDS: LEVOTHYROXINE SOD 0.1 MG TAB PO SCH (05:17)
[2020-11-06] MEDS: SPIRONOLACTONE 25 MG TABLET PO SCH (09:00)
[2020-11-06] MEDS: ASPIRIN 81 MG CHEWABLE TABLET PO SCH (09:00)
[2020-11-06] MEDS: NIFEDIPINE XL 90 MG TABLET PO SCH (09:00)
[2020-11-06] MEDS: FUROSEMIDE 40 MG/4 ML VIAL IV SCH (09:00)
[2020-11-06] MEDS: ROFLUMILAST 500 MCG TABLET PO SCH (09:00)
[2020-11-06] MEDS: SOTALOL HCL 80 MG TAB PO SCH (09:00)
[2020-11-06] MEDS: NYSTATIN 500,000 UNIT/5 ML UDC PO PRN (09:29)
[2020-11-06] MEDS: NITROGLYCERIN 0.4 MG/HR (10 MG) PATCH TD SCH (09:30)
[2020-11-06] MEDS: CALCIUM CARBONATE CHEW 500MG TAB PO SCH (09:30)
[2020-11-06] MEDS: CITALOPRAM 10 MG TABLET PO SCH (09:31)
[2020-11-06] MEDS: APIXABAN 5 MG TABLET PO SCH (09:31)
[2020-11-06] MEDS: PANTOPRAZOLE 40MG TABLET PO SCH (09:32)
[2020-11-06] MEDS: predniSONE 20 MG TAB PO SCH (09:32)
[2020-11-06] MEDS: HYDRALAZINE HCL 25 MG TABLET PO SCH (09:32)
[2020-11-06] MEDS: DOCUSATE NA 100 MG CAP PO SCH (09:33)
[2020-11-06] MEDS: CIPROFLOXACIN HCL 500 MG TAB PO SCH (09:33)
[2020-11-06] MEDS: ANASTROZOLE 1 MG PO SCH (09:34)
[2020-11-06] MEDS: ENSURE ENLIVE 237 ML CAN PO SCH (10:30)
[2020-11-06] MEDS: ARFORMOTEROL TARTRATE 15 MCG/2 ML VIAL.NEB IH SCH (11:14)
--- NOTE | 2020-11-06 11:37 | PN ---
Date of Progress Note: 11/05/2020 Subjective: The patient has clinical status a few days ago, in between she did have a cou ple of good days; however, this was not continued. The family has decided on putting her in for disp osition with [facility], situation was discussed with senior medical director and the procedure has been put in to play who continue on same medication as far as only difference would be the Lasix from IV to p.o. She has the pulmonary apparatus at home and just awaiting placement of that and appropriate paperwork. _ HR/MODL Voice ID: [id number] Report ID: [id number]
[2020-11-06] MEDS ORDERED: LORAZEPAM 1 MG TABLET PO ONE (12:29)
--- NOTE | 2020-11-06 13:04 | PN ---
Date of Progress Note: 11/06/2020 The patient actually seems somewhat better today, both mentally and physically. Arrangements have be en made for the hospice situation and she will be discharged. Continue on her hospital medicine with Cipro limited to 5 more days. HR/MODL Voice ID: [id number] Report ID: [id number]
[2020-11-06 14:07] VITALS: BP 132/62; TEMP 98.3
== END 2020-11-06 13:59 | disposition hospice, home (50) | DRG 190 ==
LOC: ER 23:53 → ERHOLD 10-28 04:32 → 2ND 10-28 04:34
PROVIDERS: ADMIT Family Medicine; ATTEND Internal Medicine
PROC: 5A09557 Assistance with Respiratory Ventilation, Greater than 96 Consecutive Hours, Continuous Positive Airway Pressure (ICD-10-PCS; principal; 2020-10-28)
DX: J44.1 Chronic obstructive pulmonary disease with (acute) exacerbation (principal); I50.33 Acute on chronic diastolic (congestive) heart failure; J96.21 Acute and chronic respiratory failure with hypoxia; J96.22 Acute and chronic respiratory failure with hypercapnia; N17.9 Acute kidney failure, unspecified; I13.0 Hypertensive heart and chronic kidney disease with heart failure and stage 1 through stage 4 chronic kidney disease, or unspecified chronic kidney disease; I48.20 Chronic atrial fibrillation, unspecified; N18.32 Chronic kidney disease, stage 3b; E78.5 Hyperlipidemia, unspecified; I73.9 Peripheral vascular disease, unspecified; E87.6 Hypokalemia; N25.0 Renal osteodystrophy; E03.9 Hypothyroidism, unspecified; I99.8 Other disorder of circulatory system; G47.33 Obstructive sleep apnea (adult) (pediatric); F32.9 Major depressive disorder, single episode, unspecified; I65.29 Occlusion and stenosis of unspecified carotid artery; Z88.5 Allergy status to narcotic agent; Z88.8 Allergy status to other drugs, medicaments and biological substances; Z79.890 Hormone replacement therapy; Z79.01 Long term (current) use of anticoagulants; Z79.02 Long term (current) use of antithrombotics/antiplatelets; Z79.52 Long term (current) use of systemic steroids; Z79.899 Other long term (current) drug therapy; Z79.82 Long term (current) use of aspirin; Z85.3 Personal history of malignant neoplasm of breast; Z90.12 Acquired absence of left breast and nipple; Z87.891 Personal history of nicotine dependence; Z90.710 Acquired absence of both cervix and uterus; Z20.822 Contact with and (suspected) exposure to COVID-19
CPT/HCPCS: 0240U; 36415; 71045; 80048; 80053; 80069; 80076; 82805; 82947; 83735; 83880; 84484; 85025; 85379; 85610; 87070; 87077; 87186; 87205; 93005; 93970; 94640; 94660; 94760; 96374; 97110; 97116; 97161; 97530; 99285; J1940; J2405; J2920; J2930; J7512; J7605